=== PATIENT | male | born 1955 | race African-American/Black ===

== ENCOUNTER 2016-06-26 13:12 | Inpatient (IN) | payer OTHER ==
[2016-06-26 16:07] VITALS: BMI 27.6
--- NOTE | 2016-06-26 16:47 | HP ---
CIWA Score - CIWA Score Nausea/Vomitin-Mild Nausea/No Vomiting Muscle Tremors: 4-Moderate,w/Arms Extend Anxiety: 4-Mod. Anxious/Guarded Agitation: 4-Moderately Restless Paroxysmal Sweats: 3 Orientation: 0-Oriented Tacttile Disturbances: 0-None Auditory Disturbances: 0-None Visual Disturbances: 0-None Headache: 1-Very Mild CIWA-Ar Total Score: 17 Admission ROS BHS - HPI Chief Complaint: Withdrawal sx. Allergies/Adverse Reactions: Allergies Allergy/AdvReac Type Severity Reaction Status Date / Time Penicillins Allergy Severe Difficulty Verified 06/26/16 15:34 Breathing tomato [Tomato] Allergy Mild Itching Verified 06/26/16 15:34 tuberculin, purified protein Allergy Rash Verified 06/26/16 15:34 deriva [Tuberculin,Purif.Prot.Deriv.] History of Present Illness: 61 y/o man with a long hx. of alcoholism is admitted for detox. Pt. has been in previous detox,denies significant sobriety. Exam Limitations: No Limitations - Ebola screening Have you traveled outside of the country in the last 21 days: No Have you had contact with anyone from an Ebola affected area: No Have you been sick,other than usual withdrawal symptoms: No Do you have a fever: No - Review of Systems Constitutional: Diaphoresis EENT: reports: No Symptoms Reported Respiratory: reports: No Symptoms reported Cardiac: reports: No Symptoms Reported GI: reports: Nausea, Abdominal cramping : reports: No Symptoms Reported Musculoskeletal: reports: Joint Pain Integumentary: reports: Sweating Neuro: reports: Tremors Endocrine: reports: No Symptoms Reported Hematology: reports: No Symptoms Reported Psychiatric: reports: No Sypmtoms Reported Other Systems: Reviewed and Negative Patient History - Patient Medical History Hx Anemia: No Hx Asthma: No Hx Chronic Obstructive Pulmonary Disease (COPD): No Hx Cancer: No Hx Cardiac Disorders: No Hx Congestive Heart Failure: No Hx Hypertension: No (when detoxing) Hx Hypercholesterolemia: No Hx Pacemaker: No HX Cerebrovascular Accident: No Hx Seizures: No Hx Dementia: No Hx Diabetes: No Hx Gastrointestinal Disorders: Yes (acid reflux) Hx Liver Disease: No Hx Genitourinary Disorders: No Hx Sexually Transmitted Disorders: No Hx Renal Disease (ESRD): No Hx Thyroid Disease: No Hx Human Immunodeficiency Virus (HIV): No Hx Hepatitis C: No Hx Depression: No Hx Suicide Attempt: No Hx Bipolar Disorder: No Hx Schizophrenia: No - Patient Surgical History Past Surgical History: No Hx Neurologic Surgery: No Hx Cataract Extraction: No Hx Cardiac Surgery: No Hx Lung Surgery: No Hx Breast Surgery: No Hx Breast Biopsy: No Hx Abdominal Surgery: No Hx Appendectomy: No Hx Cholecystectomy: No Hx Genitourinary Surgery: No Hx Section: No Hx Orthopedic Surgery: No Anesthesia Reaction: No - PPD History Previous Implant?: Yes Documented Results: Positive w/o proof Date: 12/16/14 (recent Cx-ray is WNL) Results: Allergic to PPD PPD to be Administered?: No - Smoking Cessation Smoking history: Current some day smoker Have you smoked in the past 12 months: Yes Aproximately how many cigarettes per day: 6 Cigars Per Day: 0 Hx Chewing Tobacco Use: No Initiated information on smoking cessation: Yes 'Breaking Loose' booklet given: 06/26/16 - Substance & Tx. History Hx Alcohol Use: Yes Hx Substance Use: No Substance Use Type: Alcohol Hx Substance Use Treatment: Yes (detox) - Substances Abused Alcohol-vodka/beer Route: Oral Frequency: Daily Amount used: 2 1/2 pts./3 (22 oz.) Age of first use: 19 Date of Last Use: 06/26/16 Family Disease History - Family Disease History Family Disease History: CA: Mother (BREAST) Admission Physical Exam S - Vital Signs Vital Signs: Vital Signs - 24 hr 06/26/16 15:54 Temperature 96 F L Pulse Rate 103 H Respiratory 18 Rate Blood Pressure 153/86 - Physical General Appearance: Yes: Alcohol on Breath, Tremorous, Irritable, Sweating, Anxious HEENTM: Yes: Within Normal Limits Respiratory: Yes: Chest Non-Tender, Lungs Clear, Normal Breath Sounds Neck: Yes: Supple Breast: Yes: Breast Exam Deferred Cardiology: Yes: Regular Rhythm, Regular Rate, S1, S2 Abdominal: Yes: Normal Bowel Sounds, Non Tender, Soft Genitourinary: Yes: Within Normal Limits Back: Yes: Within Normal Limits Musculoskeletal: Yes: Within Normal Limits Extremities: Yes: Tremors 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: Yes: Fully Oriented, Alert Integumentary: Yes: Diaphoresis Lymphatic: Yes: Within Normal Limits - Diagnostic (1) GERD (gastroesophageal reflux disease) Current Visit: Yes Status: Acute Qualifiers: Esophagitis presence: without esophagitis Qualified Code(s): K21.9 - Gastro-esophageal reflux disease without esophagitis (2) Alcohol dependence with uncomplicated withdrawal Current Visit: Yes Status: Acute (3) Dry eyes Current Visit: Yes Status: Chronic Comment: with sensitivity to light (4) Nicotine dependence Current Visit: Yes Status: Chronic Cleared for Admission [facility] - Detox or Rehab [facility] Level of Care: Medically Managed Detox Regimen/Protocol: Librium S Breath Alcohol Content Breath Alcohol Content: 0.247 Urine Drug Screen - Results Drug Screen Negative: Yes
[2016-06-26] MEDS ORDERED: chlordiazePOXIDE HCL 25 MG CAPSULE PO ONE (16:54)
[2016-06-26] MEDS ORDERED: MAGNESIUM CITRATE 300 ML BOTTLE PO PRN (16:54)
[2016-06-26] MEDS ORDERED: MAG HYDROX/AL HYDROX/SIMETH 30 ML UNIT-DOSE CUP PO PRN (16:54)
[2016-06-26] MEDS ORDERED: LOPERAMIDE HCL 2 MG CAPSULE PO PRN (16:54)
[2016-06-26] MEDS ORDERED: MENTHOL/PHENOL 1 EACH UD MM PRN (16:54)
[2016-06-26] MEDS ORDERED: MAGNESIUM HYDROX 2400MG/30ML ORAL SUSPENSION 30 ML CUP PO PRN (16:54)
[2016-06-26] MEDS ORDERED: P-EPHED 60MG/TRIPROLIDI 2.5MG TABLET PO PRN (16:54)
[2016-06-26] MEDS ORDERED: ACETAMINOPHEN 325 MG TABLET (FP) PO PRN (16:54)
[2016-06-26] MEDS ORDERED: chlordiazePOXIDE HCL 25 MG CAPSULE PO PRN (16:54)
[2016-06-26] MEDS ORDERED: diphenhydrAMINE HCL 50 MG CAPSULE PO PRN (16:54)
[2016-06-26] MEDS ORDERED: NICOTINE POLACRILEX 2 MG GUM BC PRN (16:54)
[2016-06-26] MEDS ORDERED: guaiFENesin/D-METHORPHAN HB 10 ML UNIT-DOSE CUPS PO PRN (16:54)
[2016-06-26] MEDS: chlordiazePOXIDE HCL 25 MG CAPSULE PO SCH ×2 (17:48→22:45)
[2016-06-26] MEDS: NICOTINE 14 MG/24 HOURS TOPICAL PATCH TD SCH (17:50)
[2016-06-26 19:27] LABS: URINE APPEARANCE CLEAR; URINE BILIRUBIN NEGATIVE (NEGATIVE); URINE BLOOD NEGATIVE (NEGATIVE); URINE COLOR LTYELLOW; URINE GLUCOSE (UA) NEGATIVE (NEGATIVE); URINE KETONE NEGATIVE (NEGATIVE); URINE LEUK ESTERASE NEGATIVE (NEGATIVE); URINE NITRITE NEGATIVE (NEGATIVE); URINE PROTEIN NEGATIVE (NEGATIVE); URINE UROBILINOGEN NEGATIVE E.U./dl (0.2-1.0)
[2016-06-26] MEDS: NAPROXEN 500 MG TABLET (FP) PO SCH (22:44)
[2016-06-26] MEDS: THIAMINE HCL 100 MG TABLET (FP) PO SCH (22:44)
[2016-06-26] MEDS: ARTIFICIAL TEARS (POLYVINYL ALCOHOL 1.4%) OPTH DROPS OU SCH (22:44)
[2016-06-26] MEDS: FLUTICASONE PROP 0.05% 16 GM NASAL SPRAY NS SCH (22:44)
[2016-06-27] MEDS: chlordiazePOXIDE HCL 25 MG CAPSULE PO SCH ×4 (05:41→22:22)
[2016-06-27] MEDS: ARTIFICIAL TEARS (POLYVINYL ALCOHOL 1.4%) OPTH DROPS OU SCH ×3 (05:51→22:22)
[2016-06-27] MEDS: RANITIDINE HCL 150 MG TABLET (FP) PO SCH ×2 (07:13→17:19)
[2016-06-27] MEDS ORDERED: ONDANSETRON *ODT* 4 MG TABLET SL PRN (09:33)
[2016-06-27] MEDS ORDERED: ONDANSETRON *ODT* 4 MG TABLET SL ONE (09:45)
[2016-06-27 10:08] LABS: MCH 31.5 pg (25.7-33.7); MCHC 34.6 g/dl (32.0-35.9); MEAN CELL VOLUME 90.9 fl (80-96); MEAN PLT VOLUME 8.3 fl (7.5-11.1); PLATELET COUNT 230 K/MM3 (134-434); RDW 16.2 % (11.9-15.9); WHITE BLOOD COUNT 8.3 K/mm3 (4.0-10.0)
[2016-06-27] MEDS: FLUTICASONE PROP 0.05% 16 GM NASAL SPRAY NS SCH ×2 (10:21→22:22)
[2016-06-27] MEDS: PRENATAL VITAMINS W/ FOLIC ACID TABLET (FP) PO SCH (10:22)
[2016-06-27] MEDS: NICOTINE 14 MG/24 HOURS TOPICAL PATCH TD SCH (10:22)
[2016-06-27] MEDS: NAPROXEN 500 MG TABLET (FP) PO SCH ×2 (10:22→22:22)
[2016-06-27 11:28] LABS: ALBUMIN 3.8 g/dl (3.4-5.0); ALK PHOS 117 U/L (45-117); ANION GAP 10 (8-16); BILIRUBIN,TOTAL 0.6 mg/dL (0.2-1.0); CALCIUM 8.4 mg/dL (8.5-10.1); CO2 24 mmol/L (21-32); CREATININE 1.1 mg/dL (0.7-1.3); GLUCOSE,RANDOM 82 mg/dL (74-106); SGOT/AST 59 U/L (15-37); SGPT/ALT 75 U/L (12-78)
--- NOTE | 2016-06-27 12:16 | PN ---
S CIWA - CIWA Score Nausea/Vomitin (also c/o diarrhea) Muscle Tremors: 4-Moderate,w/Arms Extend Anxiety: 4-Mod. Anxious/Guarded Agitation: 4-Moderately Restless Paroxysmal Sweats: 3 Orientation: 0-Oriented Tacttile Disturbances: 0-None Auditory Disturbances: 0-None Visual Disturbances: 0-None Headache: 0-None Present CIWA-Ar Total Score: 18 BHS Progress Note (SOAP) Subjective: nausea,diarrhea,sweating,anxiety,tremors,interrupted sleep,restless Objective: 06/27/16 12:15 Vital Signs - 8 hr 06/27/16 06/27/16 06:11 09:53 Temperature 97 F L 96.4 F L Pulse Rate 102 H 111 H Respiratory 18 81 H Rate Blood Pressure 156/93 156/86 Laboratory Tests 06/26/16 06/27/16 06/27/16 19:08 07:00 07:00 WBC 8.3 RBC 3.73 L Hgb 11.7 Hct 33.9 L MCV 90.9 MCHC 34.6 RDW 16.2 H D Plt Count 230 MPV 8.3 Sodium 141 Potassium 4.2 Chloride 107 Carbon Dioxide 24 Anion Gap 10 BUN 24 H D Creatinine 1.1 Creat Clearance w eGFR > 60 Random Glucose 82 Calcium 8.4 L Total Bilirubin 0.6 D AST 59 H D ALT 75 D Alkaline Phosphatase 117 D Total Protein 7.0 Albumin 3.8 Urine Color Ltyellow Urine Appearance Clear Urine pH 5.0 Ur Specific [place] 1.017 Urine Protein Negative Urine Glucose (UA) Negative Urine Ketones Negative Urine Blood Negative Urine Nitrite Negative Urine Bilirubin Negative Urine Urobilinogen Negative Ur Leukocyte Esterase Negative RPR Titer 06/27/16 07:00 WBC RBC Hgb Hct MCV MCHC RDW Plt Count MPV Sodium Potassium Chloride Carbon Dioxide Anion Gap BUN Creatinine Creat Clearance w eGFR Random Glucose Calcium Total Bilirubin AST ALT Alkaline Phosphatase Total Protein Albumin Urine Color Urine Appearance Urine pH Ur Specific [place] Urine Protein Urine Glucose (UA) Urine Ketones Urine Blood Urine Nitrite Urine Bilirubin Urine Urobilinogen Ur Leukocyte Esterase RPR Titer Nonreactive labs noted Assessment: 06/27/16 12:16 Withdrawal sx. Plan: Continue detox
[2016-06-27] MEDS: amLODIPine BESYLATE 5 MG TABLET (FP) PO SCH ×2 (13:07→22:22)
[2016-06-27] MEDS: THIAMINE HCL 100 MG TABLET (FP) PO SCH (22:23)
[2016-06-28] MEDS: chlordiazePOXIDE HCL 25 MG CAPSULE PO SCH ×2 (05:22→10:15)
[2016-06-28] MEDS: ARTIFICIAL TEARS (POLYVINYL ALCOHOL 1.4%) OPTH DROPS OU SCH ×3 (05:23→22:20)
[2016-06-28] MEDS: RANITIDINE HCL 150 MG TABLET (FP) PO SCH ×2 (06:30→17:12)
[2016-06-28] MEDS: FLUTICASONE PROP 0.05% 16 GM NASAL SPRAY NS SCH ×2 (10:14→22:18)
[2016-06-28] MEDS: NAPROXEN 500 MG TABLET (FP) PO SCH ×2 (10:14→22:19)
[2016-06-28] MEDS: amLODIPine BESYLATE 5 MG TABLET (FP) PO SCH ×2 (10:14→22:19)
[2016-06-28] MEDS: PRENATAL VITAMINS W/ FOLIC ACID TABLET (FP) PO SCH (10:15)
[2016-06-28] MEDS: NICOTINE 14 MG/24 HOURS TOPICAL PATCH TD SCH (10:15)
--- NOTE | 2016-06-28 10:31 | PN ---
[facility] CIWA - CIWA Score Nausea/Vomitin-No Nausea/No Vomiting Muscle Tremors: 4-Moderate,w/Arms Extend Anxiety: 4-Mod. Anxious/Guarded Agitation: 4-Moderately Restless Paroxysmal Sweats: 1-Minimal Palms Moist Orientation: 0-Oriented Tacttile Disturbances: 3-Moderate Itch/Numb/Burn Auditory Disturbances: 0-None Visual Disturbances: 0-None Headache: 0-None Present CIWA-Ar Total Score: 16 BHS Progress Note (SOAP) Subjective: ANXIETY,SWEATS,DECREASED DIARRHEA. Objective: 06/28/16 10:29 Vital Signs 06/28/16 06/28/16 06/28/16 03:29 06:13 09:55 Temperature 96.3 F L 96.1 F L Pulse Rate 84 95 H Respiratory 18 18 20 Rate Blood Pressure 134/82 155/82 Laboratory Last Values WBC 8.3 K/mm3 (4.0-10.0) 06/27/16 07:00 RBC 3.73 M/mm3 (4.00-5.60) L 06/27/16 07:00 Hgb 11.7 GM/dL (11.7-16.9) 06/27/16 07:00 Hct 33.9 % (35.4-49) L 06/27/16 07:00 MCV 90.9 fl (80-96) 06/27/16 07:00 MCHC 34.6 g/dl (32.0-35.9) 06/27/16 07:00 RDW 16.2 % (11.9-15.9) H D 06/27/16 07:00 Plt Count 230 K/MM3 (134-434) 06/27/16 07:00 MPV 8.3 fl (7.5-11.1) 06/27/16 07:00 Sodium 141 mmol/L (136-145) 06/27/16 07:00 Potassium 4.2 mmol/L (3.5-5.1) 06/27/16 07:00 Chloride 107 mmol/L (98-107) 06/27/16 07:00 Carbon Dioxide 24 mmol/L (21-32) 06/27/16 07:00 Anion Gap 10 (8-16) 06/27/16 07:00 BUN 24 mg/dL (7-18) H D 06/27/16 07:00 Creatinine 1.1 mg/dL (0.7-1.3) 06/27/16 07:00 Creat Clearance w eGFR > 60 (>60) 06/27/16 07:00 Random Glucose 82 mg/dL (74-106) 06/27/16 07:00 Calcium 8.4 mg/dL (8.5-10.1) L 06/27/16 07:00 Total Bilirubin 0.6 mg/dL (0.2-1.0) D 06/27/16 07:00 AST 59 U/L (15-37) H D 06/27/16 07:00 ALT 75 U/L (12-78) D 06/27/16 07:00 Alkaline Phosphatase 117 U/L (45-117) D 06/27/16 07:00 Total Protein 7.0 g/dl (6.4-8.2) 06/27/16 07:00 Albumin 3.8 g/dl (3.4-5.0) 06/27/16 07:00 Urine Color Ltyellow 06/26/16 19:08 Urine Appearance Clear 06/26/16 19:08 Urine pH 5.0 (5.0-8.0) 06/26/16 19:08 Ur Specific [place] 1.017 (1.001-1.035) 06/26/16 19:08 Urine Protein Negative (NEGATIVE) 06/26/16 19:08 Urine Glucose (UA) Negative (NEGATIVE) 06/26/16 19:08 Urine Ketones Negative (NEGATIVE) 06/26/16 19:08 Urine Blood Negative (NEGATIVE) 06/26/16 19:08 Urine Nitrite Negative (NEGATIVE) 06/26/16 19:08 Urine Bilirubin Negative (NEGATIVE) 06/26/16 19:08 Urine Urobilinogen Negative E.U./dl (0.2-1.0) 06/26/16 19:08 Ur Leukocyte Esterase Negative (NEGATIVE) 06/26/16 19:08 RPR Titer Nonreactive (NONREACTIVE) 06/27/16 07:00 Hepatitis C Antibody <0.1 s/co ratio (0.0-0.9) 06/26/16 07:00 Assessment: 06/28/16 10:30 WITHDRAWAL SX Plan: CONTINUE DETOX
--- NOTE | 2016-06-28 15:35 | EKG ---
Test Reason : Blood Pressure : / mmHG Vent. Rate : 105 BPM Atrial Rate : 105 BPM P-R Int : 166 ms QRS Dur : 084 ms QT Int : 334 ms P-R-T Axes : 056 018 045 degrees QTc Int : 441 ms SINUS TACHYCARDIA OTHERWISE NORMAL ECG NO PREVIOUS ECGS AVAILABLE Confirmed by MEGAN RICO MD ([id number]) on 06/28/2016 3:35:22 PM Referred By: Confirmed By:MEGAN RICO MD
[2016-06-28] MEDS: chlordiazePOXIDE 5 MG CAPSULE PO SCH ×2 (17:12→22:19)
[2016-06-28] MEDS: THIAMINE HCL 100 MG TABLET (FP) PO SCH (22:18)
[2016-06-29] MEDS: chlordiazePOXIDE 5 MG CAPSULE PO SCH ×2 (05:45→10:29)
[2016-06-29] MEDS: ARTIFICIAL TEARS (POLYVINYL ALCOHOL 1.4%) OPTH DROPS OU SCH ×3 (05:46→22:19)
[2016-06-29] MEDS: RANITIDINE HCL 150 MG TABLET (FP) PO SCH ×2 (07:47→17:16)
[2016-06-29] MEDS: FLUTICASONE PROP 0.05% 16 GM NASAL SPRAY NS SCH ×2 (10:28→22:19)
[2016-06-29] MEDS: amLODIPine BESYLATE 5 MG TABLET (FP) PO SCH ×2 (10:29→22:20)
[2016-06-29] MEDS: PRENATAL VITAMINS W/ FOLIC ACID TABLET (FP) PO SCH (10:29)
[2016-06-29] MEDS: NICOTINE 14 MG/24 HOURS TOPICAL PATCH TD SCH (10:29)
[2016-06-29] MEDS: NAPROXEN 500 MG TABLET (FP) PO SCH ×2 (10:29→22:20)
--- NOTE | 2016-06-29 11:42 | PN ---
S Progress Note (SOAP) Subjective: ANXIETY,DECREASED TREMORS, SWEATS. Objective: 06/29/16 11:41 Vital Signs Temperature 96.3 F L 06/29/16 09:41 Pulse Rate 90 06/29/16 09:41 Respiratory Rate 20 06/29/16 09:41 Blood Pressure 130/81 06/29/16 09:41 O2 Sat by Pulse Oximetry (%) Laboratory Last Values WBC 8.3 K/mm3 (4.0-10.0) 06/27/16 07:00 RBC 3.73 M/mm3 (4.00-5.60) L 06/27/16 07:00 Hgb 11.7 GM/dL (11.7-16.9) 06/27/16 07:00 Hct 33.9 % (35.4-49) L 06/27/16 07:00 MCV 90.9 fl (80-96) 06/27/16 07:00 MCHC 34.6 g/dl (32.0-35.9) 06/27/16 07:00 RDW 16.2 % (11.9-15.9) H D 06/27/16 07:00 Plt Count 230 K/MM3 (134-434) 06/27/16 07:00 MPV 8.3 fl (7.5-11.1) 06/27/16 07:00 Sodium 141 mmol/L (136-145) 06/27/16 07:00 Potassium 4.2 mmol/L (3.5-5.1) 06/27/16 07:00 Chloride 107 mmol/L (98-107) 06/27/16 07:00 Carbon Dioxide 24 mmol/L (21-32) 06/27/16 07:00 Anion Gap 10 (8-16) 06/27/16 07:00 BUN 24 mg/dL (7-18) H D 06/27/16 07:00 Creatinine 1.1 mg/dL (0.7-1.3) 06/27/16 07:00 Creat Clearance w eGFR > 60 (>60) 06/27/16 07:00 Random Glucose 82 mg/dL (74-106) 06/27/16 07:00 Calcium 8.4 mg/dL (8.5-10.1) L 06/27/16 07:00 Total Bilirubin 0.6 mg/dL (0.2-1.0) D 06/27/16 07:00 AST 59 U/L (15-37) H D 06/27/16 07:00 ALT 75 U/L (12-78) D 06/27/16 07:00 Alkaline Phosphatase 117 U/L (45-117) D 06/27/16 07:00 Total Protein 7.0 g/dl (6.4-8.2) 06/27/16 07:00 Albumin 3.8 g/dl (3.4-5.0) 06/27/16 07:00 Urine Color Ltyellow 06/26/16 19:08 Urine Appearance Clear 06/26/16 19:08 Urine pH 5.0 (5.0-8.0) 06/26/16 19:08 Ur Specific [place] 1.017 (1.001-1.035) 06/26/16 19:08 Urine Protein Negative (NEGATIVE) 06/26/16 19:08 Urine Glucose (UA) Negative (NEGATIVE) 06/26/16 19:08 Urine Ketones Negative (NEGATIVE) 06/26/16 19:08 Urine Blood Negative (NEGATIVE) 06/26/16 19:08 Urine Nitrite Negative (NEGATIVE) 06/26/16 19:08 Urine Bilirubin Negative (NEGATIVE) 06/26/16 19:08 Urine Urobilinogen Negative E.U./dl (0.2-1.0) 06/26/16 19:08 Ur Leukocyte Esterase Negative (NEGATIVE) 06/26/16 19:08 RPR Titer Nonreactive (NONREACTIVE) 06/27/16 07:00 Hepatitis C Antibody <0.1 s/co ratio (0.0-0.9) 06/26/16 07:00 Assessment: 06/29/16 11:41 WITHDRAWAL SX Plan: CONTINUE DETOX
[2016-06-29] MEDS: DOCUSATE SODIUM 100 MG CAPSULE (FP) PO SCH (11:47)
[2016-06-29] MEDS: CARBAMIDE PEROXIDE 6.5% OTIC 15 ML BOTTLE AU SCH ×2 (12:08→22:19)
[2016-06-29] MEDS: chlordiazePOXIDE HCL 10 MG CAPSULE PO SCH ×2 (17:16→22:20)
[2016-06-29] MEDS: THIAMINE HCL 100 MG TABLET (FP) PO SCH (22:19)
[2016-06-30] MEDS: chlordiazePOXIDE HCL 10 MG CAPSULE PO SCH ×2 (05:49→10:23)
[2016-06-30] MEDS: ARTIFICIAL TEARS (POLYVINYL ALCOHOL 1.4%) OPTH DROPS OU SCH ×2 (05:50→05:51)
[2016-06-30] MEDS: RANITIDINE HCL 150 MG TABLET (FP) PO SCH (07:30)
[2016-06-30 09:17] VITALS: BP 134/82; PULSE 98; TEMP 97
--- NOTE | 2016-06-30 09:45 | DS ---
[facility] Detox Discharge Summary Admission Date: 06/26/16 Discharge Date: 06/30/16 - History Present History: Alcohol Dependence Additional Comments: DETOX COMPLETED.ALERT O X 3. NAD. Pertinent Past History: GERD - Physical Exam Results Vital Signs: Vital Signs Temperature 97.0 F L 06/30/16 09:16 Pulse Rate 98 H 06/30/16 09:16 Respiratory Rate 20 06/30/16 09:16 Blood Pressure 134/82 06/30/16 09:16 O2 Sat by Pulse Oximetry (%) Pertinent Admission Physical Exam Findings: WITHDRAWAL SX - Treatment Hospital Course: Detox Protocol Followed, Detoxed Safely, Responded well, Discharged Condition Good - Medication Discharge Medications: Ambulatory Orders Sodium Chloride [Saline Nasal [place]] 2 sprays NS Q6H PRN 04/28/15 Hypromellose 0.5% Opth Soln [Artificial Tears] 1 drop OU TID #1 drops 09/22/15 Fluticasone Prop 0.05% Nasal [Flonase -] 1 spray NS BID #1 spray 10/13/15 Hydrocortisone 2.5% Topical Cr [Anusol-Hc -] 1 applic RC BID #1 tube 10/13/15 Ranitidine [Zantac -] 150 mg PO BID@0730,1630 #60 tablet 10/13/15 Naproxen [Naprosyn -] 500 mg PO BID 06/26/16 - Diagnosis (1) Alcohol dependence with uncomplicated withdrawal Current Visit: Yes Status: Acute (2) GERD (gastroesophageal reflux disease) Current Visit: Yes Status: Chronic Qualifiers: Esophagitis presence: without esophagitis Qualified Code(s): K21.9 - Gastro-esophageal reflux disease without esophagitis (3) Nicotine dependence Current Visit: Yes Status: Chronic (4) Hip arthritis Current Visit: Yes Status: Chronic (5) Dry eyes Current Visit: Yes Status: Chronic (6) Cerumen debris on tympanic membrane of both ears Current Visit: Yes Status: Acute (7) Hemorrhoids Current Visit: Yes Status: Chronic Qualifiers: Hemorrhoid type: unspecified Qualified Code(s): K64.9 - Unspecified hemorrhoids - AMA Did Patient Leave Against Medical Advice: No
[2016-06-30] MEDS: DOCUSATE SODIUM 100 MG CAPSULE (FP) PO SCH (10:22)
[2016-06-30] MEDS: PRENATAL VITAMINS W/ FOLIC ACID TABLET (FP) PO SCH (10:22)
[2016-06-30] MEDS: amLODIPine BESYLATE 5 MG TABLET (FP) PO SCH (10:22)
[2016-06-30] MEDS: CARBAMIDE PEROXIDE 6.5% OTIC 15 ML BOTTLE AU SCH (10:22)
[2016-06-30] MEDS: NAPROXEN 500 MG TABLET (FP) PO SCH (10:22)
[2016-06-30] MEDS: FLUTICASONE PROP 0.05% 16 GM NASAL SPRAY NS SCH (10:22)
[2016-06-30] MEDS: NICOTINE 14 MG/24 HOURS TOPICAL PATCH TD SCH (10:23)
== END 2016-06-30 12:43 | disposition home or self-care (01) | DRG 775 ==
LOC: YASAS 13:12 → Y3N 17:00
PROVIDERS: ADMIT Internal Medicine; ATTEND Internal Medicine
PROC: HZ2ZZZZ Detoxification Services for Substance Abuse Treatment (ICD-10-PCS; principal; 2016-06-30)
DX: F10.230 Alcohol dependence with withdrawal, uncomplicated (principal); F17.210 Nicotine dependence, cigarettes, uncomplicated; K21.9 Gastro-esophageal reflux disease without esophagitis; M13.859 Other specified arthritis, unspecified hip; H04.123 Dry eye syndrome of bilateral lacrimal glands; K64.9 Unspecified hemorrhoids; H61.23 Impacted cerumen, bilateral
CPT/HCPCS: 36415; 80053; 81003; 85027; 86593; 93005; 93010

== ENCOUNTER 2017-01-07 17:45 | Inpatient (IN) | payer OTHER ==
--- NOTE | 2017-01-07 18:53 | HP ---
CIWA Score - CIWA Score Nausea/Vomitin-Mild Nausea/No Vomiting Muscle Tremors: 2 Anxiety: 1-Mildly Anxious Agitation: 2 Paroxysmal Sweats: 1-Minimal Palms Moist Orientation: 1-Uncertain about Date Tacttile Disturbances: 1-Very Mild Itch/Numbness Auditory Disturbances: 0-None Visual Disturbances: 3-Moderate Sensitivity Headache: 1-Very Mild CIWA-Ar Total Score: 13 Admission ROS BHS - HPI Chief Complaint: I need detox and then rehab Allergies/Adverse Reactions: Allergies Allergy/AdvReac Type Severity Reaction Status Date / Time Penicillins Allergy Severe Difficulty Verified 06/26/16 15:34 Breathing tomato [Tomato] Allergy Mild Itching Verified 06/26/16 15:34 tuberculin, purified protein Allergy Rash Verified 06/26/16 15:34 deriva [Tuberculin,Purif.Prot.Deriv.] History of Present Illness: 61 y/o male with alcohol dependence with recent detox at [facility] presents for detox and possible rehab. Exam Limitations: Intoxication - Ebola screening Have you traveled outside of the country in the last 21 days: No Have you had contact with anyone from an Ebola affected area: No Have you been sick,other than usual withdrawal symptoms: No Do you have a fever: No - Review of Systems Constitutional: Loss of Appetite EENT: reports: No Symptoms Reported, Blurred Vision, Tearing Respiratory: reports: Cough Cardiac: reports: No Symptoms Reported GI: reports: Poor Fluid Intake : reports: No Symptoms Reported Musculoskeletal: reports: Back Pain, Muscle Pain Integumentary: reports: No Symptoms Reported Neuro: reports: Headache, Weakness Endocrine: reports: No Symptoms Reported Hematology: reports: No Symptoms Reported Psychiatric: reports: Anxious Other Systems: Reviewed and Negative Patient History - Patient Medical History Hx Anemia: No Hx Asthma: No Hx Chronic Obstructive Pulmonary Disease (COPD): No Hx Cancer: No Hx Cardiac Disorders: No Hx Congestive Heart Failure: No Hx Hypertension: No Hx Hypercholesterolemia: No Hx Pacemaker: No HX Cerebrovascular Accident: No Hx Seizures: No Hx Dementia: No Hx Diabetes: No Hx Gastrointestinal Disorders: Yes (acid reflux) Hx Liver Disease: No Hx Genitourinary Disorders: No Hx Sexually Transmitted Disorders: No Hx Renal Disease (ESRD): No Hx Thyroid Disease: No Hx Human Immunodeficiency Virus (HIV): No Hx Hepatitis C: No Hx Depression: No Hx Suicide Attempt: No Hx Bipolar Disorder: No Hx Schizophrenia: No - Patient Surgical History Past Surgical History: No - PPD History Date: 12/16/14 Results: Allergic to PPD - Smoking Cessation Smoking history: Current some day smoker Have you smoked in the past 12 months: Yes Aproximately how many cigarettes per day: 6 Cigars Per Day: 0 Hx Chewing Tobacco Use: No Initiated information on smoking cessation: Yes 'Breaking Loose' booklet given: 01/07/17 - Substance & Tx. History Hx Alcohol Use: Yes Hx Substance Use: Yes Substance Use Type: Alcohol - Substances Abused Alcohol Route: Oral Frequency: Daily Amount used: 2 pint, 2 packs Age of first use: 19 Date of Last Use: 01/07/17 Family Disease History - Family Disease History Family Disease History: CA: Mother (BREAST) Admission Physical Exam [facility] - Physical General Appearance: Yes: Alcohol on Breath HEENTM: Yes: Hearing grossly Normal, Normocephalic, Normal Voice, GLEN, Photophobia Respiratory: Yes: Chest Non-Tender, Lungs Clear, No Respiratory Distress, No Accessory Muscle Use Neck: Yes: No masses,lesions,Nodules, Supple Breast: Yes: Breast Exam Deferred Cardiology: Yes: Regular Rhythm, Regular Rate, S1, S2 Abdominal: Yes: Normal Bowel Sounds, Non Tender, Soft Genitourinary: Yes: Within Normal Limits Back: Yes: Normal Inspection Musculoskeletal: Yes: full range of Motion Extremities: Yes: Normal Capillary Refill, Normal Inspection, Non-Tender 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: 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: 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 intact, Fully Oriented, Normal Mood/Affect Integumentary: Yes: Within Normal Limits Lymphatic: Yes: Within Normal Limits - Diagnostic (1) Alcohol dependence with uncomplicated withdrawal Current Visit: Yes Status: Acute (2) GERD (gastroesophageal reflux disease) Current Visit: Yes Status: Chronic Qualifiers: Esophagitis presence: without esophagitis Qualified Code(s): K21.9 - Gastro-esophageal reflux disease without esophagitis (3) Nicotine dependence Current Visit: Yes Status: Acute Cleared for Admission [facility] - Detox or Rehab [facility] Level of Care: Medically Managed Detox Regimen/Protocol: Librium [facility] Breath Alcohol Content Breath Alcohol Content: 0.247
[2017-01-07] MEDS ORDERED: P-EPHED 60MG/TRIPROLIDI 2.5MG TABLET PO PRN (18:56)
[2017-01-07] MEDS ORDERED: MAGNESIUM HYDROX 2400MG/30ML ORAL SUSPENSION 30 ML CUP PO PRN (18:56)
[2017-01-07] MEDS ORDERED: chlordiazePOXIDE HCL 25 MG CAPSULE PO ONE (18:56)
[2017-01-07] MEDS ORDERED: LOPERAMIDE HCL 2 MG CAPSULE PO PRN (18:56)
[2017-01-07] MEDS ORDERED: MAGNESIUM CITRATE 300 ML BOTTLE PO PRN (18:56)
[2017-01-07] MEDS ORDERED: IBUPROFEN 400 MG TABLET (FP) PO PRN (18:56)
[2017-01-07] MEDS ORDERED: guaiFENesin/D-METHORPHAN HB 10 ML UNIT-DOSE CUPS PO PRN (18:56)
[2017-01-07] MEDS ORDERED: MAG HYDROX/AL HYDROX/SIMETH 30 ML UNIT-DOSE CUP PO PRN (18:56)
[2017-01-07] MEDS ORDERED: MENTHOL/PHENOL 1 EACH UD MM PRN (18:56)
[2017-01-07] MEDS ORDERED: NICOTINE POLACRILEX 2 MG GUM BC PRN (18:56)
[2017-01-07] MEDS ORDERED: diphenhydrAMINE HCL 50 MG CAPSULE PO PRN (18:56)
[2017-01-07] MEDS ORDERED: chlordiazePOXIDE HCL 25 MG CAPSULE PO PRN (18:56)
[2017-01-07] MEDS ORDERED: hydrOXYzine PAMOATE 50 MG CAPSULE (FP) PO PRN (18:56)
[2017-01-08 00:26] LABS: URINE APPEARANCE CLEAR; URINE BILIRUBIN NEGATIVE (NEGATIVE); URINE BLOOD 1+ (NEGATIVE); URINE COLOR LTYELLOW; URINE GLUCOSE (UA) NEGATIVE (NEGATIVE); URINE KETONE NEGATIVE (NEGATIVE); URINE LEUK ESTERASE NEGATIVE (NEGATIVE); URINE NITRITE NEGATIVE (NEGATIVE); URINE PROTEIN NEGATIVE (NEGATIVE); URINE UROBILINOGEN NEGATIVE mg/dL (0.2-1.0)
[2017-01-08 00:40] LABS: URINE MUCUS RARE; URINE RBC 2 /hpf (0-3); URINE WBC <1 /hpf (3-5)
[2017-01-08] MEDS: THIAMINE HCL 100 MG TABLET (FP) PO SCH ×2 (00:58→22:37)
[2017-01-08] MEDS: chlordiazePOXIDE HCL 25 MG CAPSULE PO SCH ×5 (00:59→22:37)
[2017-01-08 09:50] LABS: MCHC 33.2 g/dl (32.0-35.9); MEAN CELL VOLUME 87.4 fl (80-96); MEAN PLT VOLUME 8.6 fl (7.5-11.1); PLATELET COUNT 227 K/MM3 (134-434); RDW 17.2 % (11.9-15.9); WHITE BLOOD COUNT 9.4 K/mm3 (4.0-10.0)
--- NOTE | 2017-01-08 09:53 | EKG ---
Test Reason : Blood Pressure : / mmHG Vent. Rate : 092 BPM Atrial Rate : 092 BPM P-R Int : 170 ms QRS Dur : 080 ms QT Int : 364 ms P-R-T Axes : 046 003 047 degrees QTc Int : 450 ms NORMAL SINUS RHYTHM NORMAL ECG WHEN COMPARED WITH ECG OF 26-JUN-2016 17:56, NO SIGNIFICANT CHANGE WAS FOUND Confirmed by MD LIDA, QUOC ([id number]) on 01/08/2017 9:52:38 AM Referred By: Kumar Hardy Confirmed By:QUOC HILTON MD
[2017-01-08 10:01] LABS: SGOT/AST 41 U/L (15-37); SGPT/ALT 37 U/L (12-78)
[2017-01-08 10:07] LABS: ALBUMIN 3.8 g/dl (3.4-5.0); ALK PHOS 86 U/L (45-117); ANION GAP 12 (8-16); BILIRUBIN,TOTAL 0.5 mg/dL (0.2-1.0); CALCIUM 9.1 mg/dL (8.5-10.1); CO2 22 mmol/L (21-32); CREATININE 1.1 mg/dL (0.7-1.3); GLUCOSE,RANDOM 75 mg/dL (74-106)
[2017-01-08] MEDS: PRENATAL VITAMINS W/ FOLIC ACID TABLET (FP) PO SCH (10:13)
[2017-01-08] MEDS: guaiFENesin/D-METHORPHAN HB 10 ML UNIT-DOSE CUPS PO PRN (13:15)
[2017-01-08] MEDS: LORATADINE 10 MG TABLET PO SCH (13:15)
[2017-01-08] MEDS: HYDROCORTISONE 1% TOPICAL CREAM 30 GM TUBE TP SCH ×2 (15:43→22:37)
[2017-01-08] MEDS: ARTIFICIAL TEARS (POLYVINYL ALCOHOL 1.4%) OPTH DROPS OU SCH ×2 (15:46→22:37)
--- NOTE | 2017-01-08 17:45 | PN ---
[facility] CIWA - CIWA Score Nausea/Vomitin-Int. Nausea w/Dry Heave Muscle Tremors: 4-Moderate,w/Arms Extend Anxiety: 4-Mod. Anxious/Guarded Agitation: 4-Moderately Restless Paroxysmal Sweats: 3 Orientation: 0-Oriented Tacttile Disturbances: 1-Very Mild Itch/Numbness Auditory Disturbances: 0-None Visual Disturbances: 0-None Headache: 0-None Present CIWA-Ar Total Score: 20 S Progress Note (SOAP) Subjective: N/D, stuffy nose, right leg pain, stomach ache; c/o having common cold and requesting cough syrup. C/O itchy rash on face. Objective: 01/08/17 17:42 Last Vital Signs Temp Pulse Resp BP Pulse Ox 97.2 F L 100 H 20 157/90 01/08/17 13:26 01/08/17 13:26 01/08/17 13:26 01/08/17 13:26 PE: Face: macular mildly erythemic scaly rash Laboratory Tests 01/07/17 01/08/17 01/08/17 21:18 07:50 07:50 WBC 9.4 RBC 4.48 D Hgb 13.0 D Hct 39.2 D MCV 87.4 MCH 29.0 MCHC 33.2 RDW 17.2 H Plt Count 227 MPV 8.6 Sodium 143 Potassium 4.0 Chloride 109 H Carbon Dioxide 22 Anion Gap 12 BUN 18 D Creatinine 1.1 Creat Clearance w eGFR > 60 Random Glucose 75 Calcium 9.1 Total Bilirubin 0.5 AST 41 H D ALT 37 D Alkaline Phosphatase 86 D Total Protein 7.0 Albumin 3.8 Urine Color Ltyellow Urine Appearance Clear Urine pH 5.0 Ur Specific [place] 1.020 Urine Protein Negative Urine Glucose (UA) Negative Urine Ketones Negative Urine Blood 1+ H Urine Nitrite Negative Urine Bilirubin Negative Urine Urobilinogen Negative Ur Leukocyte Esterase Negative Urine RBC 2 Urine WBC <1 Urine Mucus Rare RPR Titer 01/08/17 07:50 WBC RBC Hgb Hct MCV MCH MCHC RDW Plt Count MPV Sodium Potassium Chloride Carbon Dioxide Anion Gap BUN Creatinine Creat Clearance w eGFR Random Glucose Calcium Total Bilirubin AST ALT Alkaline Phosphatase Total Protein Albumin Urine Color Urine Appearance Urine pH Ur Specific [place] Urine Protein Urine Glucose (UA) Urine Ketones Urine Blood Urine Nitrite Urine Bilirubin Urine Urobilinogen Ur Leukocyte Esterase Urine RBC Urine WBC Urine Mucus RPR Titer Nonreactive Labs noted: UA 1+ blood Assessment: 01/08/17 17:44 Withdrawal symptoms Noted with microscopic hematuria Plan: Continue detox, ordered for artificial tears at patient's request for dry eyes; claritin 10mg daily for congestion; naproxen 500mg PO bid (patient request for right leg pain stating he takes naproxen at home; will d/c motrin) Microscopic hematuria: encouraged to drink lots of water, repeat UA Facial dermatitis, nos: hydrocortisone cream 1% bid to affected area x 10 days
[2017-01-08] MEDS: NAPROXEN 500 MG TABLET (FP) PO SCH (22:36)
[2017-01-09] MEDS: ACETAMINOPHEN 325 MG TABLET (FP) PO PRN ×3 (04:05→17:02)
[2017-01-09] MEDS: chlordiazePOXIDE HCL 25 MG CAPSULE PO SCH ×3 (05:52→17:01)
--- NOTE | 2017-01-09 10:07 | PN ---
[facility] CIWA - CIWA Score Nausea/Vomitin Muscle Tremors: 4-Moderate,w/Arms Extend Anxiety: 4-Mod. Anxious/Guarded Agitation: 4-Moderately Restless Paroxysmal Sweats: 3 Orientation: 0-Oriented Tacttile Disturbances: 1-Very Mild Itch/Numbness Auditory Disturbances: 0-None Visual Disturbances: 0-None Headache: 1-Very Mild CIWA-Ar Total Score: 20 BHS Progress Note (SOAP) Subjective: nausea, sweats, interrupted sleep, anxiety, tremors Objective: 01/09/17 10:06 Vital Signs 01/09/17 01/09/17 01/09/17 03:42 06:33 07:58 Temperature 98 F Pulse Rate 80 80 Respiratory 18 16 Rate Blood Pressure 170/85 183/99 01/09/17 09:23 Temperature 97.0 F L Pulse Rate 78 Respiratory 18 Rate Blood Pressure 150/94 Laboratory Tests 01/07/17 01/08/17 01/08/17 21:18 07:50 07:50 WBC 9.4 RBC 4.48 D Hgb 13.0 D Hct 39.2 D MCV 87.4 MCH 29.0 MCHC 33.2 RDW 17.2 H Plt Count 227 MPV 8.6 Sodium 143 Potassium 4.0 Chloride 109 H Carbon Dioxide 22 Anion Gap 12 BUN 18 D Creatinine 1.1 Creat Clearance w eGFR > 60 Random Glucose 75 Calcium 9.1 Total Bilirubin 0.5 AST 41 H D ALT 37 D Alkaline Phosphatase 86 D Total Protein 7.0 Albumin 3.8 Urine Color Ltyellow Urine Appearance Clear Urine pH 5.0 Ur Specific [place] 1.020 Urine Protein Negative Urine Glucose (UA) Negative Urine Ketones Negative Urine Blood 1+ H Urine Nitrite Negative Urine Bilirubin Negative Urine Urobilinogen Negative Ur Leukocyte Esterase Negative Urine RBC 2 Urine WBC <1 Urine Mucus Rare RPR Titer 01/08/17 07:50 WBC RBC Hgb Hct MCV MCH MCHC RDW Plt Count MPV Sodium Potassium Chloride Carbon Dioxide Anion Gap BUN Creatinine Creat Clearance w eGFR Random Glucose Calcium Total Bilirubin AST ALT Alkaline Phosphatase Total Protein Albumin Urine Color Urine Appearance Urine pH Ur Specific [place] Urine Protein Urine Glucose (UA) Urine Ketones Urine Blood Urine Nitrite Urine Bilirubin Urine Urobilinogen Ur Leukocyte Esterase Urine RBC Urine WBC Urine Mucus RPR Titer Nonreactive Assessment: 01/09/17 10:07 withdrawal sx Plan: cont detox
[2017-01-09] MEDS: ARTIFICIAL TEARS (POLYVINYL ALCOHOL 1.4%) OPTH DROPS OU SCH ×2 (10:37→22:30)
[2017-01-09] MEDS: PRENATAL VITAMINS W/ FOLIC ACID TABLET (FP) PO SCH (10:37)
[2017-01-09] MEDS: LORATADINE 10 MG TABLET PO SCH (10:37)
[2017-01-09] MEDS: NAPROXEN 500 MG TABLET (FP) PO SCH ×2 (10:37→22:58)
[2017-01-09] MEDS: HYDROCORTISONE 1% TOPICAL CREAM 30 GM TUBE TP SCH ×2 (10:38→22:58)
[2017-01-09] MEDS: PANTOPRAZOLE 40 MG TABLET (FP) PO SCH (12:41)
[2017-01-09 13:59] LABS: URINE APPEARANCE CLEAR; URINE BILIRUBIN NEGATIVE (NEGATIVE); URINE BLOOD NEGATIVE (NEGATIVE); URINE COLOR LTYELLOW; URINE GLUCOSE (UA) NEGATIVE (NEGATIVE); URINE KETONE NEGATIVE (NEGATIVE); URINE LEUK ESTERASE NEGATIVE (NEGATIVE); URINE NITRITE NEGATIVE (NEGATIVE); URINE PROTEIN NEGATIVE (NEGATIVE); URINE UROBILINOGEN NEGATIVE mg/dL (0.2-1.0)
[2017-01-09] MEDS: THIAMINE HCL 100 MG TABLET (FP) PO SCH (22:57)
[2017-01-09] MEDS: guaiFENesin/D-METHORPHAN HB 10 ML UNIT-DOSE CUPS PO PRN (22:57)
[2017-01-09] MEDS: chlordiazePOXIDE 5 MG CAPSULE PO SCH (22:58)
[2017-01-10] MEDS: ACETAMINOPHEN 325 MG TABLET (FP) PO PRN (05:56)
[2017-01-10] MEDS: chlordiazePOXIDE 5 MG CAPSULE PO SCH ×3 (05:57→17:10)
[2017-01-10] MEDS: ARTIFICIAL TEARS (POLYVINYL ALCOHOL 1.4%) OPTH DROPS OU SCH ×2 (10:33→22:23)
[2017-01-10] MEDS: HYDROCORTISONE 1% TOPICAL CREAM 30 GM TUBE TP SCH ×2 (10:34→22:26)
[2017-01-10] MEDS: LORATADINE 10 MG TABLET PO SCH (10:34)
[2017-01-10] MEDS: NAPROXEN 500 MG TABLET (FP) PO SCH ×2 (10:34→22:23)
[2017-01-10] MEDS: PANTOPRAZOLE 40 MG TABLET (FP) PO SCH (10:34)
[2017-01-10] MEDS: PRENATAL VITAMINS W/ FOLIC ACID TABLET (FP) PO SCH (10:35)
--- NOTE | 2017-01-10 12:25 | PN ---
BHS Progress Note (SOAP) Subjective: Sweating, Tremors, H/A, Anxious, Stomach Cramping, Nausea. Objective: PT. A & O X 3. NO ACUTE DISTRESS. PT. DENIES CHEST PAIN. 01/10/17 12:21 Vital Signs Temperature 97.2 F L 01/10/17 09:25 Pulse Rate 80 01/10/17 09:25 Respiratory Rate 18 01/10/17 09:25 Blood Pressure 146/76 01/10/17 09:25 O2 Sat by Pulse Oximetry (%) Laboratory Tests 01/07/17 01/08/17 01/08/17 21:18 07:50 07:50 WBC 9.4 RBC 4.48 D Hgb 13.0 D Hct 39.2 D MCV 87.4 MCH 29.0 MCHC 33.2 RDW 17.2 H Plt Count 227 MPV 8.6 Sodium 143 Potassium 4.0 Chloride 109 H Carbon Dioxide 22 Anion Gap 12 BUN 18 D Creatinine 1.1 Creat Clearance w eGFR > 60 Random Glucose 75 Calcium 9.1 Total Bilirubin 0.5 AST 41 H D ALT 37 D Alkaline Phosphatase 86 D Total Protein 7.0 Albumin 3.8 Urine Color Ltyellow Urine Appearance Clear Urine pH 5.0 Ur Specific [place] 1.020 Urine Protein Negative Urine Glucose (UA) Negative Urine Ketones Negative Urine Blood 1+ H Urine Nitrite Negative Urine Bilirubin Negative Urine Urobilinogen Negative Ur Leukocyte Esterase Negative Urine RBC 2 Urine WBC <1 Urine Mucus Rare RPR Titer 01/08/17 01/09/17 07:50 10:05 WBC RBC Hgb Hct MCV MCH MCHC RDW Plt Count MPV Sodium Potassium Chloride Carbon Dioxide Anion Gap BUN Creatinine Creat Clearance w eGFR Random Glucose Calcium Total Bilirubin AST ALT Alkaline Phosphatase Total Protein Albumin Urine Color Ltyellow Urine Appearance Clear Urine pH 6.0 Ur Specific [place] 1.020 Urine Protein Negative Urine Glucose (UA) Negative Urine Ketones Negative Urine Blood Negative Urine Nitrite Negative Urine Bilirubin Negative Urine Urobilinogen Negative Ur Leukocyte Esterase Negative Urine RBC Urine WBC Urine Mucus RPR Titer Nonreactive LABS NOTED. RESULTS OF REPEAT UA NOTED. 01/10/17 12:23 Assessment: 01/10/17 12:22 WITHDRAWAL SYMPTOMS. Plan: CONTINUE DETOX. CONTINUE TO MONITOR BP.
--- NOTE | 2017-01-10 12:38 | PN ---
[facility] Progress Note Note: Patient brought a copy of CXR Report from [facility] ([place], [place] done on 12/26/2016, with him at time of this Detox admission. CXR report NEGATIVE for Acute Pulmonary Pathology. Thus, CXR previously ordered on current Detox admission (for Allergy to PPD solution) D/Cwatson Cordero NP
[2017-01-10] MEDS: SODIUM CHLORIDE NASAL SPRAY 44 ML BOTTLE NS PRN (22:23)
[2017-01-10] MEDS: chlordiazePOXIDE HCL 10 MG CAPSULE PO SCH (22:23)
[2017-01-10] MEDS: THIAMINE HCL 100 MG TABLET (FP) PO SCH (22:23)
[2017-01-10] MEDS: guaiFENesin/D-METHORPHAN HB 10 ML UNIT-DOSE CUPS PO PRN (22:26)
[2017-01-11] MEDS: chlordiazePOXIDE HCL 10 MG CAPSULE PO SCH ×2 (05:53→10:23)
[2017-01-11] MEDS: ACETAMINOPHEN 325 MG TABLET (FP) PO PRN (05:54)
[2017-01-11 09:47] VITALS: BP 160/96; PULSE 92; TEMP 97.2
[2017-01-11] MEDS: NAPROXEN 500 MG TABLET (FP) PO SCH (10:21)
[2017-01-11] MEDS: PANTOPRAZOLE 40 MG TABLET (FP) PO SCH (10:21)
[2017-01-11] MEDS: PRENATAL VITAMINS W/ FOLIC ACID TABLET (FP) PO SCH (10:21)
[2017-01-11] MEDS: LORATADINE 10 MG TABLET PO SCH (10:21)
[2017-01-11] MEDS: ARTIFICIAL TEARS (POLYVINYL ALCOHOL 1.4%) OPTH DROPS OU SCH (10:22)
[2017-01-11] MEDS: SODIUM CHLORIDE NASAL SPRAY 44 ML BOTTLE NS PRN (10:22)
[2017-01-11] MEDS: HYDROCORTISONE 1% TOPICAL CREAM 30 GM TUBE TP SCH (10:22)
--- NOTE | 2017-01-11 20:32 | DS ---
[facility] Detox Discharge Summary Admission Date: 01/07/17 Discharge Date: 01/11/17 - History Present History: Alcohol Dependence Additional Comments: PATIENT GOING TO [facility] ([place] FOR AFTERCARE. PATIENT ALSO ADVISED TO FOLLOW-UP WITH HIS RULING TECHNICIAN, DR. ENRIQUEZ ([facility] [place] FOR GENERAL MEDICAL ASSESSMENT AFTER DISCHARGE FROM DETOX. PATIENT WAS DISCHARGED FROM DETOX UNIT IN STABLE MEDICAL CONDITION. Pertinent Past History: GERD. - Physical Exam Results Vital Signs: Vital Signs Temperature 97.2 F L 01/11/17 09:46 Pulse Rate 92 H 01/11/17 09:46 Respiratory Rate 18 01/11/17 09:46 Blood Pressure 160/96 01/11/17 09:46 O2 Sat by Pulse Oximetry (%) Pertinent Admission Physical Exam Findings: WITHDRAWAL SYMPTOMS. Laboratory Tests 01/07/17 01/08/17 01/08/17 21:18 07:50 07:50 WBC 9.4 RBC 4.48 D Hgb 13.0 D Hct 39.2 D MCV 87.4 MCH 29.0 MCHC 33.2 RDW 17.2 H Plt Count 227 MPV 8.6 Sodium 143 Potassium 4.0 Chloride 109 H Carbon Dioxide 22 Anion Gap 12 BUN 18 D Creatinine 1.1 Creat Clearance w eGFR > 60 Random Glucose 75 Calcium 9.1 Total Bilirubin 0.5 AST 41 H D ALT 37 D Alkaline Phosphatase 86 D Total Protein 7.0 Albumin 3.8 Urine Color Ltyellow Urine Appearance Clear Urine pH 5.0 Ur Specific [place] 1.020 Urine Protein Negative Urine Glucose (UA) Negative Urine Ketones Negative Urine Blood 1+ H Urine Nitrite Negative Urine Bilirubin Negative Urine Urobilinogen Negative Ur Leukocyte Esterase Negative Urine RBC 2 Urine WBC <1 Urine Mucus Rare RPR Titer 01/08/17 01/09/17 07:50 10:05 WBC RBC Hgb Hct MCV MCH MCHC RDW Plt Count MPV Sodium Potassium Chloride Carbon Dioxide Anion Gap BUN Creatinine Creat Clearance w eGFR Random Glucose Calcium Total Bilirubin AST ALT Alkaline Phosphatase Total Protein Albumin Urine Color Ltyellow Urine Appearance Clear Urine pH 6.0 Ur Specific [place] 1.020 Urine Protein Negative Urine Glucose (UA) Negative Urine Ketones Negative Urine Blood Negative Urine Nitrite Negative Urine Bilirubin Negative Urine Urobilinogen Negative Ur Leukocyte Esterase Negative Urine RBC Urine WBC Urine Mucus RPR Titer Nonreactive LABS NOTED. - Treatment Hospital Course: Detox Protocol Followed, Detoxed Safely, Responded well, Discharged Condition Good Patient has Accepted a Rehab Referral to: PT. GOING TO [facility] ([place] FOR AFTERCARE - Medication Discharge Medications: Ambulatory Orders Sodium Chloride [Saline Nasal Mullin] 2 sprays NS Q6H PRN 04/28/15 Hypromellose 0.5% Opth Soln [Artificial Tears] 1 drop OU TID #1 drops 09/22/15 Hydrocortisone 2.5% Topical Cr [Anusol-Hc -] 1 applic RC BID #1 tube 10/13/15 Ranitidine [Zantac -] 150 mg PO BID@0730,1630 #60 tablet 10/13/15 Fluticasone Prop 0.05% Nasal [Flonase -] 1 spray NS BID #1 spray 01/11/17 Naproxen [Naprosyn -] 500 mg PO BID PRN #30 mg 01/11/17 - Diagnosis (1) Alcohol dependence with uncomplicated withdrawal Status: Acute (2) Nicotine dependence Status: Chronic (3) GERD (gastroesophageal reflux disease) Status: Chronic Qualifiers: Esophagitis presence: without esophagitis Qualified Code(s): K21.9 - Gastro-esophageal reflux disease without esophagitis - AMA Did Patient Leave Against Medical Advice: No
== END 2017-01-11 12:48 | disposition home or self-care (01) | DRG 775 ==
LOC: YASAS 17:45 → Y3N 18:29
PROVIDERS: ADMIT Internal Medicine Addiction Medicine; ATTEND Internal Medicine Addiction Medicine
PROC: HZ2ZZZZ Detoxification Services for Substance Abuse Treatment (ICD-10-PCS; principal; 2017-01-07)
DX: F10.230 Alcohol dependence with withdrawal, uncomplicated (principal); F17.210 Nicotine dependence, cigarettes, uncomplicated; K21.9 Gastro-esophageal reflux disease without esophagitis
CPT/HCPCS: 36415; 80053; 81003; 81015; 85027; 86593; 93005; 93010

== ENCOUNTER 2017-04-28 17:00 | Inpatient (IN) | payer OTHER ==
[2017-04-28 22:12] VITALS: BMI 29.4
--- NOTE | 2017-04-28 22:37 | HP ---
CIWA Score - CIWA Score Nausea/Vomitin Muscle Tremors: 4-Moderate,w/Arms Extend Anxiety: 4-Mod. Anxious/Guarded Agitation: 5 Paroxysmal Sweats: 1-Minimal Palms Moist Orientation: 1-Uncertain about Date Tacttile Disturbances: 3-Moderate Itch/Numb/Burn Auditory Disturbances: 0-None Visual Disturbances: 3-Moderate Sensitivity Headache: 3-Moderate CIWA-Ar Total Score: 27 Admission ROS BHS - HPI Chief Complaint: C/O WITHDRAWAL SX'S. SEEKING DETOX TXMENT Allergies/Adverse Reactions: Allergies Allergy/AdvReac Type Severity Reaction Status Date / Time Penicillins Allergy Severe Difficulty Verified 06/26/16 15:34 Breathing tomato [Tomato] Allergy Mild Itching Verified 06/26/16 15:34 tuberculin, purified protein Allergy Rash Verified 06/26/16 15:34 deriva [Tuberculin,Purif.Prot.Deriv.] History of Present Illness: 61 Y.O. MALE WITH HX/O ALCOHOLISM ADMITTED FOR DETOX. CLIENT IS KNOWN TO THIS DETOX. LAST HERE 2016. HE IS SELF REFERRED. STATES LONGEST CLEAN TIME 9 MONTHS RELAPSING IN 2014. DENIES LEGALS Exam Limitations: No Limitations - Ebola screening Have you traveled outside of the country in the last 21 days: No Have you had contact with anyone from an Ebola affected area: No Do you have a fever: No - Review of Systems Constitutional: Chills, Loss of Appetite, Malaise, Night Sweats, Changes in sleep EENT: reports: No Symptoms Reported Respiratory: reports: No Symptoms reported Cardiac: reports: No Symptoms Reported GI: reports: Nausea, Poor Appetite, Poor Fluid Intake, Vomiting : reports: Other (HESITANCY) Musculoskeletal: reports: Joint Pain Integumentary: reports: No Symptoms Reported Neuro: reports: No Symptoms reported Endocrine: reports: No Symptoms Reported Hematology: reports: No Symptoms Reported Psychiatric: reports: Anxious Other Systems: Reviewed and Negative Patient History - Patient Medical History Hx Anemia: No Hx Asthma: No Hx Chronic Obstructive Pulmonary Disease (COPD): No Hx Cancer: No Hx Cardiac Disorders: No Hx Congestive Heart Failure: No Hx Hypertension: No Hx Hypercholesterolemia: No Hx Pacemaker: No HX Cerebrovascular Accident: No Hx Seizures: No Hx Dementia: No Hx Diabetes: No Hx Gastrointestinal Disorders: Yes (acid reflux) Hx Liver Disease: No Hx Genitourinary Disorders: No Hx Sexually Transmitted Disorders: No Hx Renal Disease (ESRD): No Hx Thyroid Disease: No Hx Human Immunodeficiency Virus (HIV): No Hx Hepatitis C: No Hx Depression: No Hx Suicide Attempt: No Hx Bipolar Disorder: No Hx Schizophrenia: No Other Medical History: ANXIETY - Patient Surgical History Past Surgical History: No Hx Neurologic Surgery: No Hx Cataract Extraction: No Hx Cardiac Surgery: No Hx Lung Surgery: No Hx Breast Surgery: No Hx Breast Biopsy: No Hx Abdominal Surgery: No Hx Appendectomy: No Hx Cholecystectomy: No Hx Genitourinary Surgery: No Hx Section: No Hx Orthopedic Surgery: No Anesthesia Reaction: No - PPD History Previous Implant?: Yes Implanted On Prior [facility] Admission?: No Date: 12/16/14 Results: Allergic to PPD PPD to be Administered?: No - Smoking Cessation Smoking history: Current every day smoker Have you smoked in the past 12 months: Yes Aproximately how many cigarettes per day: 6 Cigars Per Day: 0 Hx Chewing Tobacco Use: No Initiated information on smoking cessation: Yes 'Breaking Loose' booklet given: 04/28/17 - Substance & Tx. History Hx Alcohol Use: Yes Hx Substance Use: Yes Substance Use Type: Alcohol Hx Substance Use Treatment: [facility] - Substances Abused VODKA Route: Oral Frequency: Daily Amount used: 1 QUARTAND 1 PINT Age of first use: 19 Date of Last Use: 04/27/17 Family Disease History - Family Disease History Family Disease History: CA: Mother (BREAST) Admission Physical Exam BHS - Vital Signs Vital Signs: Vital Signs - 24 hr 04/28/17 22:11 Temperature 98.1 F Pulse Rate 110 H Respiratory 20 Rate Blood Pressure 150/82 - Physical General Appearance: Yes: Appropriately Dressed, Mild Distress, Alcohol on Breath , Intoxicated, Tremorous, Anxious HEENTM: Yes: EOMI, Normocephalic, Normal Voice, GLEN, Pharynx Normal Respiratory: Yes: Chest Non-Tender, Lungs Clear, Normal Breath Sounds, No Respiratory Distress, No Accessory Muscle Use Neck: Yes: No masses,lesions,Nodules, Supple, Trachea in good position Breast: Yes: Breast Exam Deferred Cardiology: Yes: Regular Rhythm, S1, S2, Tachycardia Abdominal: Yes: Non Tender, Soft, Hernia Genitourinary: Yes: Within Normal Limits Back: Yes: Normal Inspection Musculoskeletal: Yes: full range of Motion, Gait Steady Extremities: Yes: Normal Capillary Refill, Normal Range of Motion, Non-Tender, Tremors 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: Yes: public relations manager II-XII NML intact, Alert, Motor Strength 5/5 Integumentary: Yes: Normal Color, Warm, Moist Lymphatic: Yes: Within Normal Limits - Diagnostic (1) Alcohol dependence with uncomplicated withdrawal Current Visit: No Status: Chronic (2) Dry eyes Current Visit: No Status: Chronic Comment: with sensitivity to light (3) GERD (gastroesophageal reflux disease) Current Visit: No Status: Chronic Qualifiers: Esophagitis presence: without esophagitis Qualified Code(s): K21.9 - Gastro -esophageal reflux disease without esophagitis (4) Nicotine dependence Current Visit: No Status: Chronic Cleared for Admission [facility] - Detox or Rehab [facility] Level of Care: Medically Managed Detox Regimen/Protocol: Librium [facility] Breath Alcohol Content Breath Alcohol Content: 0.071 Urine Drug Screen - Results Drug Screen Negative: Yes
[2017-04-28] MEDS ORDERED: MAGNESIUM CITRATE 300 ML BOTTLE PO PRN (22:47)
[2017-04-28] MEDS ORDERED: ACETAMINOPHEN 325 MG TABLET (FP) PO PRN (22:47)
[2017-04-28] MEDS ORDERED: MAGNESIUM HYDROX 2400MG/30ML ORAL SUSPENSION 30 ML CUP PO PRN (22:47)
[2017-04-28] MEDS ORDERED: chlordiazePOXIDE HCL 25 MG CAPSULE PO PRN (22:47)
[2017-04-28] MEDS ORDERED: guaiFENesin/D-METHORPHAN HB 10 ML UNIT-DOSE CUPS PO PRN (22:47)
[2017-04-28] MEDS ORDERED: P-EPHED 60MG/TRIPROLIDI 2.5MG TABLET PO PRN (22:47)
[2017-04-28] MEDS ORDERED: IBUPROFEN 400 MG TABLET (FP) PO PRN (22:47)
[2017-04-28] MEDS ORDERED: hydrOXYzine PAMOATE 50 MG CAPSULE (FP) PO PRN (22:47)
[2017-04-28] MEDS ORDERED: NICOTINE POLACRILEX 2 MG GUM BC PRN (22:47)
[2017-04-28] MEDS ORDERED: MAG HYDROX/AL HYDROX/SIMETH 30 ML UNIT-DOSE CUP PO PRN (22:47)
[2017-04-28] MEDS ORDERED: LOPERAMIDE HCL 2 MG CAPSULE PO PRN (22:47)
[2017-04-28] MEDS: chlordiazePOXIDE HCL 25 MG CAPSULE PO SCH (23:29)
[2017-04-29] MEDS: chlordiazePOXIDE HCL 25 MG CAPSULE PO SCH ×4 (05:10→22:03)
[2017-04-29 05:19] LABS: URINE APPEARANCE SLCLOUDY; URINE BILIRUBIN NEGATIVE (NEGATIVE); URINE BLOOD NEGATIVE (NEGATIVE); URINE COLOR YELLOW; URINE GLUCOSE (UA) NEGATIVE (NEGATIVE); URINE KETONE NEGATIVE (NEGATIVE); URINE LEUK ESTERASE NEGATIVE (NEGATIVE); URINE NITRITE NEGATIVE (NEGATIVE); URINE PROTEIN NEGATIVE (NEGATIVE); URINE UROBILINOGEN NEGATIVE mg/dL (0.2-1.0)
[2017-04-29] MEDS: RANITIDINE HCL 150 MG TABLET (FP) PO SCH ×2 (08:49→17:20)
[2017-04-29 10:12] LABS: HEMATOCRIT 41.8 % (35.4-49); HEMOGLOBIN 13.8 GM/dL (11.7-16.9); MCH 30.3 pg (25.7-33.7); MEAN CELL VOLUME 91.8 fl (80-96); MEAN PLT VOLUME 8.5 fl (7.5-11.1); PLATELET COUNT 280 K/MM3 (134-434); RBC 4.55 M/mm3 (4.00-5.60); RDW 15.1 % (11.9-15.9)
[2017-04-29] MEDS: PRENATAL VITAMINS W/ FOLIC ACID TABLET (FP) PO SCH (10:15)
[2017-04-29 10:16] LABS: CHLORIDE 103 mmol/L (98-107); POTASSIUM 4.2 mmol/L (3.5-5.1); SODIUM 135 mmol/L (136-145)
[2017-04-29] MEDS: NAPROXEN 500 MG TABLET (FP) PO PRN ×2 (10:16→22:04)
[2017-04-29] MEDS: NICOTINE 14 MG/24 HOURS TOPICAL PATCH TD SCH (10:18)
[2017-04-29 10:24] LABS: ALBUMIN 4.1 g/dl (3.4-5.0); ALK PHOS 74 U/L (45-117); ANION GAP 11 (8-16); BILIRUBIN,TOTAL 0.6 mg/dL (0.2-1.0); BLOOD UREA NITROGEN 26 mg/dL (7-18); CALCIUM 8.6 mg/dL (8.5-10.1); CO2 21 mmol/L (21-32); CREATININE 1.3 mg/dL (0.7-1.3); GLUCOSE,RANDOM 111 mg/dL (74-106); SGOT/AST 43 U/L (15-37); SGPT/ALT 47 U/L (12-78); TOT PROT 7.7 g/dl (6.4-8.2)
[2017-04-29] MEDS ORDERED: WITCH HAZEL 50% (TUCKS) 40 PAD/JAR PAD TP PRN (11:11)
--- NOTE | 2017-04-29 11:25 | EKG ---
Test Reason : Blood Pressure : / mmHG Vent. Rate : 111 BPM Atrial Rate : 111 BPM P-R Int : 162 ms QRS Dur : 072 ms QT Int : 332 ms P-R-T Axes : 055 015 030 degrees QTc Int : 451 ms SINUS TACHYCARDIA POSSIBLE LEFT ATRIAL ENLARGEMENT BORDERLINE ECG WHEN COMPARED WITH ECG OF 07-JAN-2017 21:56, NO SIGNIFICANT CHANGE WAS FOUND BASELINE ARTIFACT Confirmed by KWAKU AGUILAR MD ([id number]) on 04/29/2017 11:25:36 AM Referred By: Confirmed By:KWAKU AGUILAR MD
--- NOTE | 2017-04-29 12:21 | CONSULT ---
[facility] Psychiatric Consult - Data Date of interview: 04/29/17 Admission source: [facility] Identifying data: Readmission to [facility] for this 61 y/o AA male seeking detox treatment on for alcohol dependence.Patient is single,a father of two,homeless,unemployed and reportedly denied of financial assistance. Substance Abuse History: Confirmed by patient in this session.Mr Salvador admits to daily use of vodka and occasional usage of cannabis + cocaine.Refer to current [facility] report for details : Smoking history: Current every day smoker. Have you smoked in the past 12 months: Yes. Aproximately how many cigarettes per day: 6. Cigars Per Day: 0. Hx Chewing Tobacco Use: No. Initiated information on smoking cessation: Yes. 'Breaking Loose' booklet given: . - Substance & Tx. History. Hx Alcohol Use: Yes. Hx Substance Use: Yes. Substance Use Type: Alcohol. Hx Substance Use Treatment: Yes ([facility]). - Substances Abused. VODKA. Route: Oral. Frequency: Daily. Amount used: 1 QUARTAND 1 PINT. Age of first use: 19. Date of Last Use: 04/27/17 Medical History: Gerd and chronic photophobia (patient wears dark eyeglasses at all times). Psychiatric History: Patient denies. Physical/Sexual Abuse/Trauma History: Patent denies. Additional Comment: Drug Screen is negative. Mental Status Exam - Mental Status Exam Alert and Oriented to: Time, Place, Person Cognitive Function: Good Patient Appearance: Well Groomed (wears dark eyeglasses) Mood: Hopeful, Euthymic Affect: Appropriate, Normal Range Patient Behavior: Fatigued, Appropriate, Cooperative Speech Pattern: Clear, Appropriate Voice Loudness: Normal Thought Process: Intact, Goal Oriented Thought Disorder: Not Present Hallucinations: Denies Suicidal Ideation: Denies Homicidal Ideation: Denies Insight/Judgement: Poor Sleep: Poorly, Difficulty falling asleep Appetite: Good Muscle strength/Tone: Normal Gait/Station: Normal Psychiatric Findings - Problem List ([place] 1, 2,3) (1) Alcohol dependence with uncomplicated withdrawal Current Visit: Yes Status: Acute (2) Nicotine dependence Current Visit: Yes Status: Acute (3) Insomnia Current Visit: Yes Status: Acute - Initial Treatment Plan Initial Treatment Plan: Previous records are reviewed.Psychoeducatioin and support are provided in this session.Detoxification in progress.Patient declines hypnotic medications.He relies on librium for relief." I dont want to be on these sleep medications that make me wake up groggy and weird." Observation.
[2017-04-29] MEDS: DOCUSATE SODIUM 100 MG CAPSULE (FP) PO SCH ×2 (12:34→22:03)
--- NOTE | 2017-04-29 15:12 | PN ---
S CIWA - CIWA Score Nausea/Vomitin Muscle Tremors: 4-Moderate,w/Arms Extend Anxiety: 4-Mod. Anxious/Guarded Agitation: 3 Paroxysmal Sweats: 3 Orientation: 0-Oriented Tacttile Disturbances: 0-None Auditory Disturbances: 0-None Visual Disturbances: 2-Mild Sensitivity Headache: 0-None Present CIWA-Ar Total Score: 19 S Progress Note (SOAP) Subjective: Constipation, Tremors, Nausea, Sweating. Objective: PT. A & O X 3, OBSERVED AMBULATING ON UNIT. NO ACUTE DISTRESS. 04/29/17 15:09 Vital Signs Temperature 96.5 F L 04/29/17 13:54 Pulse Rate 107 H 04/29/17 13:54 Respiratory Rate 20 04/29/17 13:54 Blood Pressure 138/77 04/29/17 13:54 O2 Sat by Pulse Oximetry (%) Laboratory Tests 04/29/17 04/29/17 04/29/17 04:50 08:00 08:00 WBC 11.0 H RBC 4.55 Hgb 13.8 Hct 41.8 MCV 91.8 MCH 30.3 MCHC 33.0 RDW 15.1 D Plt Count 280 D MPV 8.5 Sodium 135 L Potassium 4.2 Chloride 103 Carbon Dioxide 21 Anion Gap 11 BUN 26 H D Creatinine 1.3 Creat Clearance w eGFR 56.31 Random Glucose 111 H D Calcium 8.6 Total Bilirubin 0.6 AST 43 H ALT 47 D Alkaline Phosphatase 74 Total Protein 7.7 Albumin 4.1 Urine Color Yellow Urine Appearance Slcloudy Urine pH 5.0 Ur Specific [place] 1.021 Urine Protein Negative Urine Glucose (UA) Negative Urine Ketones Negative Urine Blood Negative Urine Nitrite Negative Urine Bilirubin Negative Urine Urobilinogen Negative Ur Leukocyte Esterase Negative RPR Titer 04/29/17 08:00 WBC RBC Hgb Hct MCV MCH MCHC RDW Plt Count MPV Sodium Potassium Chloride Carbon Dioxide Anion Gap BUN Creatinine Creat Clearance w eGFR Random Glucose Calcium Total Bilirubin AST ALT Alkaline Phosphatase Total Protein Albumin Urine Color Urine Appearance Urine pH Ur Specific [place] Urine Protein Urine Glucose (UA) Urine Ketones Urine Blood Urine Nitrite Urine Bilirubin Urine Urobilinogen Ur Leukocyte Esterase RPR Titer Nonreactive LABS NOTED. Assessment: 04/29/17 15:09 WITHDRAWAL SYMPTOMS. Plan: CONTINUE DETOX. INCREASE DAILY PO FLUID INTAKE. D/C MAGNESIUM-CONTAINING MEDS. FOR ABNORMAL ADMISSION RENAL LAB VALUES. BMP ON 05/01/2017 FORE FURTHER EVALUATION OF RENAL LABS. COLACE, PO BID FOR CONSTIPATION.
[2017-04-29] MEDS: ARTIFICIAL TEARS (POLYVINYL ALCOHOL 1.4%) OPTH DROPS OU PRN (15:21)
[2017-04-29] MEDS: BENZOCAINE 28 GM HEMORRHOIDAL OINTMENT TP PRN (15:25)
[2017-04-29] MEDS: SODIUM CHLORIDE NASAL SPRAY 44 ML BOTTLE NS PRN (17:19)
[2017-04-29] MEDS: THIAMINE HCL 100 MG TABLET (FP) PO SCH (22:03)
[2017-04-30] MEDS: chlordiazePOXIDE HCL 25 MG CAPSULE PO SCH ×3 (05:24→18:10)
[2017-04-30] MEDS: RANITIDINE HCL 150 MG TABLET (FP) PO SCH ×2 (07:44→18:10)
[2017-04-30] MEDS: DOCUSATE SODIUM 100 MG CAPSULE (FP) PO SCH ×2 (10:06→22:26)
[2017-04-30] MEDS: PRENATAL VITAMINS W/ FOLIC ACID TABLET (FP) PO SCH (10:06)
[2017-04-30] MEDS: NICOTINE 14 MG/24 HOURS TOPICAL PATCH TD SCH (10:06)
[2017-04-30] MEDS: ARTIFICIAL TEARS (POLYVINYL ALCOHOL 1.4%) OPTH DROPS OU PRN (14:41)
[2017-04-30] MEDS: SODIUM CHLORIDE NASAL SPRAY 44 ML BOTTLE NS PRN (14:41)
--- NOTE | 2017-04-30 15:51 | PN ---
[facility] CIWA - CIWA Score Nausea/Vomitin Muscle Tremors: 3 Anxiety: 4-Mod. Anxious/Guarded Agitation: 4-Moderately Restless Paroxysmal Sweats: 3 Orientation: 0-Oriented Tacttile Disturbances: 1-Very Mild Itch/Numbness Auditory Disturbances: 0-None Visual Disturbances: 0-None Headache: 0-None Present CIWA-Ar Total Score: 17 BHS Progress Note (SOAP) Subjective: Anxious, sweating, diarrhea, interrupted sleep, right knee pain (requesting naun bandage) Objective: 04/30/17 15:48 Last Vital Signs Temp Pulse Resp BP Pulse Ox 97.0 F L 104 H 18 148/83 04/30/17 13:35 04/30/17 13:35 04/30/17 13:35 04/30/17 13:35 Laboratory Tests 04/29/17 04/29/17 04/29/17 04:50 08:00 08:00 WBC 11.0 H RBC 4.55 Hgb 13.8 Hct 41.8 MCV 91.8 MCH 30.3 MCHC 33.0 RDW 15.1 D Plt Count 280 D MPV 8.5 Sodium Potassium Chloride Carbon Dioxide Anion Gap BUN Creatinine Creat Clearance w eGFR Random Glucose Calcium Total Bilirubin AST ALT Alkaline Phosphatase Total Protein Albumin Urine Color Yellow Urine Appearance Slcloudy Urine pH 5.0 Ur Specific [place] 1.021 Urine Protein Negative Urine Glucose (UA) Negative Urine Ketones Negative Urine Blood Negative Urine Nitrite Negative Urine Bilirubin Negative Urine Urobilinogen Negative Ur Leukocyte Esterase Negative RPR Titer Hepatitis C Antibody 0.2 04/29/17 04/29/17 08:00 08:00 WBC RBC Hgb Hct MCV MCH MCHC RDW Plt Count MPV Sodium 135 L Potassium 4.2 Chloride 103 Carbon Dioxide 21 Anion Gap 11 BUN 26 H D Creatinine 1.3 Creat Clearance w eGFR 56.31 Random Glucose 111 H D Calcium 8.6 Total Bilirubin 0.6 AST 43 H ALT 47 D Alkaline Phosphatase 74 Total Protein 7.7 Albumin 4.1 Urine Color Urine Appearance Urine pH Ur Specific [place] Urine Protein Urine Glucose (UA) Urine Ketones Urine Blood Urine Nitrite Urine Bilirubin Urine Urobilinogen Ur Leukocyte Esterase RPR Titer Nonreactive Hepatitis C Antibody Labs noted: wbc 11.0, prerenal azotemia Assessment: 04/30/17 15:49 Withdrawal symptoms Noted with leukocytosis and prerenal azotemia Plan: Continue detox Encouraged to drink lots of water Naun wrap/bandage ordered for right knee pain due to arthritis as per patient Leukocytosis: asymptomatic for infection, repeat CBC Prerenal azotemia: encouraged to drink lots of water, repeat BMP
[2017-04-30] MEDS: BENZOCAINE 28 GM HEMORRHOIDAL OINTMENT TP PRN (18:10)
[2017-04-30] MEDS: THIAMINE HCL 100 MG TABLET (FP) PO SCH (22:25)
[2017-04-30] MEDS: chlordiazePOXIDE 5 MG CAPSULE PO SCH (22:26)
[2017-04-30] MEDS: NAPROXEN 500 MG TABLET (FP) PO PRN (22:28)
[2017-05-01] MEDS: chlordiazePOXIDE 5 MG CAPSULE PO SCH ×3 (05:34→17:28)
[2017-05-01] MEDS: RANITIDINE HCL 150 MG TABLET (FP) PO SCH ×2 (07:15→17:28)
[2017-05-01] MEDS: SODIUM CHLORIDE NASAL SPRAY 44 ML BOTTLE NS PRN (10:00)
[2017-05-01] MEDS: NAPROXEN 500 MG TABLET (FP) PO PRN ×2 (10:00→22:14)
[2017-05-01] MEDS: ARTIFICIAL TEARS (POLYVINYL ALCOHOL 1.4%) OPTH DROPS OU PRN (10:00)
[2017-05-01] MEDS: PRENATAL VITAMINS W/ FOLIC ACID TABLET (FP) PO SCH (10:00)
[2017-05-01] MEDS: DOCUSATE SODIUM 100 MG CAPSULE (FP) PO SCH ×2 (10:00→22:14)
[2017-05-01] MEDS: MENTHOL/PHENOL 1 EACH UD MM PRN (10:06)
[2017-05-01] MEDS: NICOTINE 14 MG/24 HOURS TOPICAL PATCH TD SCH (10:06)
[2017-05-01 11:59] LABS: BASO % 1.1 % (0-2.0); HEMOGLOBIN 12.7 GM/dL (11.7-16.9); LYMPH % 39.7 % (8-40); MCH 30.2 pg (25.7-33.7); MCHC 32.5 g/dl (32.0-35.9); MEAN CELL VOLUME 92.9 fl (80-96); MEAN PLT VOLUME 8.5 fl (7.5-11.1); MONO % 6.8 % (3.8-10.2); NEUT % 46.4 % (42.8-82.8); PLATELET COUNT 259 K/MM3 (134-434); WHITE BLOOD COUNT 5.9 K/mm3 (4.0-10.0)
[2017-05-01 12:17] LABS: ANION GAP 11 (8-16); CALCIUM 8.8 mg/dL (8.5-10.1); CHLORIDE 109 mmol/L (98-107); CO2 21 mmol/L (21-32); POTASSIUM 4.2 mmol/L (3.5-5.1); SODIUM 141 mmol/L (136-145)
[2017-05-01 12:19] LABS: BLOOD UREA NITROGEN 15 mg/dL (7-18); CREATININE 1.1 mg/dL (0.7-1.3); GLUCOSE,RANDOM 156 mg/dL (74-106)
--- NOTE | 2017-05-01 14:03 | PN ---
BHS Progress Note (SOAP) Subjective: C/O ITCHY RASH ON UPPER LIP. SLIGHT ANXIETY. Objective: 05/01/17 15:17 Vital Signs Temperature 96.9 F L 05/01/17 13:47 Pulse Rate 89 05/01/17 13:47 Respiratory Rate 18 05/01/17 13:47 Blood Pressure 156/89 05/01/17 13:47 O2 Sat by Pulse Oximetry (%) Laboratory Last Values WBC 5.9 K/mm3 (4.0-10.0) D 05/01/17 07:50 RBC 4.20 M/mm3 (4.00-5.60) 05/01/17 07:50 Hgb 12.7 GM/dL (11.7-16.9) 05/01/17 07:50 Hct 39.0 % (35.4-49) 05/01/17 07:50 MCV 92.9 fl (80-96) 05/01/17 07:50 MCH 30.2 pg (25.7-33.7) 05/01/17 07:50 MCHC 32.5 g/dl (32.0-35.9) 05/01/17 07:50 RDW 15.0 % (11.9-15.9) 05/01/17 07:50 Plt Count 259 K/MM3 (134-434) 05/01/17 07:50 MPV 8.5 fl (7.5-11.1) 05/01/17 07:50 Neutrophils % 46.4 % (42.8-82.8) 05/01/17 07:50 Lymphocytes % 39.7 % (8-40) 05/01/17 07:50 Monocytes % 6.8 % (3.8-10.2) 05/01/17 07:50 Eosinophils % 6.0 % (0-4.5) H 05/01/17 07:50 Basophils % 1.1 % (0-2.0) 05/01/17 07:50 Sodium 141 mmol/L (136-145) 05/01/17 07:50 Potassium 4.2 mmol/L (3.5-5.1) 05/01/17 07:50 Chloride 109 mmol/L (98-107) H 05/01/17 07:50 Carbon Dioxide 21 mmol/L (21-32) 05/01/17 07:50 Anion Gap 11 (8-16) 05/01/17 07:50 BUN 15 mg/dL (7-18) D 05/01/17 07:50 Creatinine 1.1 mg/dL (0.7-1.3) 05/01/17 07:50 Creat Clearance w eGFR 56.31 (>60) 04/29/17 08:00 Random Glucose 156 mg/dL (74-106) H D 05/01/17 07:50 Calcium 8.8 mg/dL (8.5-10.1) 05/01/17 07:50 Total Bilirubin 0.6 mg/dL (0.2-1.0) 04/29/17 08:00 AST 43 U/L (15-37) H 04/29/17 08:00 ALT 47 U/L (12-78) D 04/29/17 08:00 Alkaline Phosphatase 74 U/L (45-117) 04/29/17 08:00 Total Protein 7.7 g/dl (6.4-8.2) 04/29/17 08:00 Albumin 4.1 g/dl (3.4-5.0) 04/29/17 08:00 Urine Color Yellow 04/29/17 04:50 Urine Appearance Slcloudy 04/29/17 04:50 Urine pH 5.0 (5.0-8.0) 04/29/17 04:50 Ur Specific [place] 1.021 (1.001-1.035) 04/29/17 04:50 Urine Protein Negative (NEGATIVE) 04/29/17 04:50 Urine Glucose (UA) Negative (NEGATIVE) 04/29/17 04:50 Urine Ketones Negative (NEGATIVE) 04/29/17 04:50 Urine Blood Negative (NEGATIVE) 04/29/17 04:50 Urine Nitrite Negative (NEGATIVE) 04/29/17 04:50 Urine Bilirubin Negative (NEGATIVE) 04/29/17 04:50 Urine Urobilinogen Negative mg/dL (0.2-1.0) 04/29/17 04:50 Ur Leukocyte Esterase Negative (NEGATIVE) 04/29/17 04:50 RPR Titer Nonreactive (NONREACTIVE) 04/29/17 08:00 Hepatitis C Antibody 0.2 s/co ratio (0.0-0.9) 04/29/17 08:00 Assessment: 05/01/17 15:18 NAD Plan: CONTINUE TO MONITOR PT
[2017-05-01] MEDS: THIAMINE HCL 100 MG TABLET (FP) PO SCH (22:13)
[2017-05-01] MEDS: HYDROCORTISONE 1% TOPICAL CREAM 30 GM TUBE TP SCH (22:14)
[2017-05-01] MEDS: chlordiazePOXIDE HCL 10 MG CAPSULE PO SCH (22:16)
[2017-05-02] MEDS: chlordiazePOXIDE HCL 10 MG CAPSULE PO SCH ×3 (05:27→17:24)
[2017-05-02] MEDS: RANITIDINE HCL 150 MG TABLET (FP) PO SCH ×2 (07:01→17:24)
[2017-05-02] MEDS: ARTIFICIAL TEARS (POLYVINYL ALCOHOL 1.4%) OPTH DROPS OU PRN (10:03)
[2017-05-02] MEDS: HYDROCORTISONE 1% TOPICAL CREAM 30 GM TUBE TP SCH ×2 (10:04→22:05)
[2017-05-02] MEDS: PRENATAL VITAMINS W/ FOLIC ACID TABLET (FP) PO SCH (10:04)
[2017-05-02] MEDS: DOCUSATE SODIUM 100 MG CAPSULE (FP) PO SCH ×2 (10:04→22:04)
[2017-05-02] MEDS: SODIUM CHLORIDE NASAL SPRAY 44 ML BOTTLE NS PRN (10:04)
[2017-05-02] MEDS: NICOTINE 14 MG/24 HOURS TOPICAL PATCH TD SCH (10:04)
--- NOTE | 2017-05-02 11:32 | PN ---
BHS Progress Note (SOAP) Subjective: DECREASED ANXIETY,SWEATS. ALERT O X 3. NAD. Objective: 05/02/17 11:32 Vital Signs Temperature 97.3 F L 05/02/17 09:52 Pulse Rate 88 05/02/17 09:52 Respiratory Rate 20 05/02/17 09:52 Blood Pressure 140/88 05/02/17 09:52 O2 Sat by Pulse Oximetry (%) Laboratory Last Values WBC 5.9 K/mm3 (4.0-10.0) D 05/01/17 07:50 RBC 4.20 M/mm3 (4.00-5.60) 05/01/17 07:50 Hgb 12.7 GM/dL (11.7-16.9) 05/01/17 07:50 Hct 39.0 % (35.4-49) 05/01/17 07:50 MCV 92.9 fl (80-96) 05/01/17 07:50 MCH 30.2 pg (25.7-33.7) 05/01/17 07:50 MCHC 32.5 g/dl (32.0-35.9) 05/01/17 07:50 RDW 15.0 % (11.9-15.9) 05/01/17 07:50 Plt Count 259 K/MM3 (134-434) 05/01/17 07:50 MPV 8.5 fl (7.5-11.1) 05/01/17 07:50 Neutrophils % 46.4 % (42.8-82.8) 05/01/17 07:50 Lymphocytes % 39.7 % (8-40) 05/01/17 07:50 Monocytes % 6.8 % (3.8-10.2) 05/01/17 07:50 Eosinophils % 6.0 % (0-4.5) H 05/01/17 07:50 Basophils % 1.1 % (0-2.0) 05/01/17 07:50 Sodium 141 mmol/L (136-145) 05/01/17 07:50 Potassium 4.2 mmol/L (3.5-5.1) 05/01/17 07:50 Chloride 109 mmol/L (98-107) H 05/01/17 07:50 Carbon Dioxide 21 mmol/L (21-32) 05/01/17 07:50 Anion Gap 11 (8-16) 05/01/17 07:50 BUN 15 mg/dL (7-18) D 05/01/17 07:50 Creatinine 1.1 mg/dL (0.7-1.3) 05/01/17 07:50 Creat Clearance w eGFR 56.31 (>60) 04/29/17 08:00 Random Glucose 156 mg/dL (74-106) H D 05/01/17 07:50 Calcium 8.8 mg/dL (8.5-10.1) 05/01/17 07:50 Total Bilirubin 0.6 mg/dL (0.2-1.0) 04/29/17 08:00 AST 43 U/L (15-37) H 04/29/17 08:00 ALT 47 U/L (12-78) D 04/29/17 08:00 Alkaline Phosphatase 74 U/L (45-117) 04/29/17 08:00 Total Protein 7.7 g/dl (6.4-8.2) 04/29/17 08:00 Albumin 4.1 g/dl (3.4-5.0) 04/29/17 08:00 Urine Color Yellow 04/29/17 04:50 Urine Appearance Slcloudy 04/29/17 04:50 Urine pH 5.0 (5.0-8.0) 04/29/17 04:50 Ur Specific [place] 1.021 (1.001-1.035) 04/29/17 04:50 Urine Protein Negative (NEGATIVE) 04/29/17 04:50 Urine Glucose (UA) Negative (NEGATIVE) 04/29/17 04:50 Urine Ketones Negative (NEGATIVE) 04/29/17 04:50 Urine Blood Negative (NEGATIVE) 04/29/17 04:50 Urine Nitrite Negative (NEGATIVE) 04/29/17 04:50 Urine Bilirubin Negative (NEGATIVE) 04/29/17 04:50 Urine Urobilinogen Negative mg/dL (0.2-1.0) 04/29/17 04:50 Ur Leukocyte Esterase Negative (NEGATIVE) 04/29/17 04:50 RPR Titer Nonreactive (NONREACTIVE) 04/29/17 08:00 Hepatitis C Antibody 0.2 s/co ratio (0.0-0.9) 04/29/17 08:00 Assessment: 05/02/17 11:32 WITHDRAWAL SX Plan: CONTINUE DETOX
[2017-05-02] MEDS ORDERED: MAG HYDROX/AL HYDROX/SIMETH 30 ML UNIT-DOSE CUP PO PRN (12:23)
[2017-05-02] MEDS: THIAMINE HCL 100 MG TABLET (FP) PO SCH (22:04)
[2017-05-02] MEDS: NAPROXEN 500 MG TABLET (FP) PO PRN (22:06)
[2017-05-03] MEDS: RANITIDINE HCL 150 MG TABLET (FP) PO SCH (07:26)
[2017-05-03] MEDS: MENTHOL/PHENOL 1 EACH UD MM PRN (08:17)
[2017-05-03 09:14] VITALS: BP 153/83; PULSE 106; TEMP 96.8
[2017-05-03] MEDS: HYDROCORTISONE 1% TOPICAL CREAM 30 GM TUBE TP SCH (10:13)
[2017-05-03] MEDS: NICOTINE 14 MG/24 HOURS TOPICAL PATCH TD SCH (10:13)
[2017-05-03] MEDS: PRENATAL VITAMINS W/ FOLIC ACID TABLET (FP) PO SCH (10:13)
[2017-05-03] MEDS: DOCUSATE SODIUM 100 MG CAPSULE (FP) PO SCH (10:13)
== END 2017-05-03 11:12 | disposition home or self-care (01) | DRG 775 ==
LOC: YASAS 17:00 → Y3N 19:24
PROVIDERS: ADMIT Internal Medicine; ATTEND Internal Medicine
PROC: HZ2ZZZZ Detoxification Services for Substance Abuse Treatment (ICD-10-PCS; principal; 2017-04-28)
DX: F10.230 Alcohol dependence with withdrawal, uncomplicated (principal); F17.210 Nicotine dependence, cigarettes, uncomplicated; F41.9 Anxiety disorder, unspecified; K21.9 Gastro-esophageal reflux disease without esophagitis; H04.129 Dry eye syndrome of unspecified lacrimal gland; D72.829 Elevated white blood cell count, unspecified; R79.89 Other specified abnormal findings of blood chemistry; M13.861 Other specified arthritis, right knee; G47.00 Insomnia, unspecified; H53.149 Visual discomfort, unspecified; Z88.0 Allergy status to penicillin; Z91.018 Allergy to other foods
CPT/HCPCS: 36415; 71046-TC; 80048; 80053; 81003; 85025; 85027; 86593; 86803; 93005; 93010

== ENCOUNTER 2017-08-17 14:02 | Inpatient (IN) | payer BC ==
[2017-08-17 14:47] VITALS: BMI 29.5
--- NOTE | 2017-08-17 17:13 | HP ---
CIWA Score - CIWA Score Nausea/Vomitin-Mild Nausea/No Vomiting Muscle Tremors: 3 Anxiety: 2 Agitation: 2 Paroxysmal Sweats: 1-Minimal Palms Moist Orientation: 0-Oriented Tacttile Disturbances: 0-None Auditory Disturbances: 0-None Visual Disturbances: 3-Moderate Sensitivity Headache: 2-Mild CIWA-Ar Total Score: 14 Admission ROS BHS - HPI Chief Complaint: alcohol withdrawal symptoms Allergies/Adverse Reactions: Allergies Allergy/AdvReac Type Severity Reaction Status Date / Time Penicillins Allergy Severe Difficulty Verified 04/28/17 23:21 Breathing tomato [Tomato] Allergy Mild Itching Verified 04/28/17 23:21 tuberculin, purified protein Allergy Rash Verified 04/28/17 23:21 deriva [Tuberculin,Purif.Prot.Deriv.] History of Present Illness: 62 yo male with hx of alcohol and nicotine dependence is here seeking detox. Longest period of sobriety 9 months during 2014. Denies suicidal / homicidal ideation or suicide attempts. Denies hx of seizures or blackouts related to alcohol use. Last detox [facility] 04/27/17 -05/03/17. Exam Limitations: No Limitations (sensitivity to light) - Ebola screening Have you traveled outside of the country in the last 21 days: No Have you had contact with anyone from an Ebola affected area: No Have you been sick,other than usual withdrawal symptoms: No Do you have a fever: No - Review of Systems Constitutional: No Symptoms Reported EENT: reports: Other Respiratory: reports: No Symptoms reported Cardiac: reports: Lightheadedness GI: reports: Poor Appetite (not eating for the past 5 days), Poor Fluid Intake, Other (h) : reports: No Symptoms Reported Musculoskeletal: reports: Back Pain, Joint Pain Integumentary: reports: No Symptoms Reported Neuro: reports: Headache, Dizziness Endocrine: reports: Increased Thirst Hematology: reports: No Symptoms Reported Psychiatric: reports: Orientated x3, Anxious Other Systems: Reviewed and Negative Patient History - Patient Medical History Hx Anemia: No Hx Asthma: No Hx Chronic Obstructive Pulmonary Disease (COPD): No Hx Cancer: No Hx Cardiac Disorders: No Hx Congestive Heart Failure: No Hx Hypertension: Yes (not on meds dx 2007) Hx Hypercholesterolemia: No Hx Pacemaker: No HX Cerebrovascular Accident: No Hx Seizures: No Hx Dementia: No Hx Diabetes: No Hx Gastrointestinal Disorders: Yes (acid reflux) Hx Liver Disease: No Hx Genitourinary Disorders: No Hx Sexually Transmitted Disorders: No Hx Renal Disease (ESRD): No Hx Thyroid Disease: No Hx Human Immunodeficiency Virus (HIV): No (negative, tested 5 months ago ) Hx Hepatitis C: No Hx Depression: No Hx Suicide Attempt: No Hx Bipolar Disorder: No Hx Schizophrenia: No - Patient Surgical History Past Surgical History: No Hx Neurologic Surgery: No Hx Cataract Extraction: No Hx Cardiac Surgery: No Hx Lung Surgery: No Hx Breast Surgery: No Hx Breast Biopsy: No Hx Abdominal Surgery: No Hx Appendectomy: No Hx Cholecystectomy: No Hx Genitourinary Surgery: No Hx Section: No Hx Orthopedic Surgery: No Anesthesia Reaction: No - PPD History Previous Implant?: No Date: 12/16/14 Results: Allergic to PPD PPD to be Administered?: No - Reproductive History Patient is a Female of Child Bearing Age (11 -55 yrs old): No - Smoking Cessation Smoking history: Current every day smoker Have you smoked in the past 12 months: Yes Aproximately how many cigarettes per day: 6 Cigars Per Day: 0 Hx Chewing Tobacco Use: No Initiated information on smoking cessation: Yes 'Breaking Loose' booklet given: 08/17/17 - Substance & Tx. History Hx Alcohol Use: Yes Hx Substance Use: Yes Substance Use Type: Alcohol Hx Substance Use Treatment: Yes (Last detox [facility] 04/27/17 -05/03/17) - Substances Abused Alcohol Route: Oral Frequency: Daily Amount used: 3 pints vodka Age of first use: 19 Date of Last Use: 08/17/17 Family Disease History - Family Disease History Family Disease History: CA: Mother (BREAST) Admission Physical Exam [facility] - Vital Signs Vital Signs: Vital Signs - 24 hr 08/17/17 14:46 Temperature 96 F L Pulse Rate 98 H Respiratory 20 Rate Blood Pressure 153/89 - Physical General Appearance: Yes: Disheveled, Alcohol on Breath, Anxious HEENTM: Yes: EOMI, Hearing grossly Normal, Normal ENT Inspection, Normocephalic , Normal Voice, GLEN, Pharynx Normal, Tm's normal, Photophobia, Other (chelithis ) Respiratory: Yes: Chest Non-Tender, No Respiratory Distress Neck: Yes: Within Normal Limits Breast: Yes: Breast Exam Deferred Cardiology: Yes: Regular Rhythm, Regular Rate Abdominal: Yes: Normal Bowel Sounds, Non Tender, Soft, Protuberent, Hernia Genitourinary: Yes: Within Normal Limits Back: Yes: Normal Inspection Musculoskeletal: Yes: full range of Motion, Gait Steady, Back pain Extremities: Yes: Normal Capillary Refill, Normal Inspection, Normal Range of Motion, Non-Tender 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: 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: 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 NML intact, Fully Oriented, Alert, Motor Strength 5/5, Depressed Affect Integumentary: Yes: Normal Color, Warm, Moist Lymphatic: Yes: Within Normal Limits - Diagnostic (1) Back pain Current Visit: Yes Status: Acute (2) Alcohol dependence with uncomplicated withdrawal Current Visit: Yes Status: Acute (3) Dry eyes Current Visit: Yes Status: Chronic Comment: with sensitivity to light (4) GERD (gastroesophageal reflux disease) Current Visit: Yes Status: Chronic Qualifiers: Esophagitis presence: without esophagitis Qualified Code(s): K21.9 - Gastro -esophageal reflux disease without esophagitis (5) Hemorrhoids Current Visit: Yes Status: Chronic Qualifiers: Hemorrhoid type: unspecified Qualified Code(s): K64.9 - Unspecified hemorrhoids (6) Hip arthritis Current Visit: Yes Status: Chronic (7) Elevated blood pressure reading Current Visit: Yes Status: Acute Cleared for Admission [facility] - Detox or Rehab [facility] Level of Care: Medically Managed Detox Regimen/Protocol: Librium [facility] Breath Alcohol Content Breath Alcohol Content: 0.373 Urine Drug Screen - Results Drug Screen Negative: Yes
[2017-08-17] MEDS ORDERED: P-EPHED 60MG/TRIPROLIDI 2.5MG TABLET PO PRN (17:32)
[2017-08-17] MEDS ORDERED: MENTHOL/PHENOL 1 EACH UD MM PRN (17:32)
[2017-08-17] MEDS ORDERED: MAGNESIUM HYDROX 2400MG/30ML ORAL SUSPENSION 30 ML CUP PO PRN (17:32)
[2017-08-17] MEDS ORDERED: chlordiazePOXIDE HCL 25 MG CAPSULE PO PRN (17:32)
[2017-08-17] MEDS ORDERED: LOPERAMIDE HCL 2 MG CAPSULE PO PRN (17:32)
[2017-08-17] MEDS ORDERED: MAGNESIUM CITRATE 300 ML BOTTLE PO PRN (17:32)
[2017-08-17] MEDS ORDERED: hydrOXYzine PAMOATE 50 MG CAPSULE (FP) PO PRN (17:32)
[2017-08-17] MEDS ORDERED: NICOTINE POLACRILEX 2 MG GUM BUC PRN (17:32)
[2017-08-17] MEDS ORDERED: guaiFENesin/D-METHORPHAN HB 10 ML UNIT-DOSE CUPS PO PRN (17:32)
[2017-08-17] MEDS ORDERED: IBUPROFEN 400 MG TABLET (FP) PO PRN (17:32)
[2017-08-17] MEDS ORDERED: ACETAMINOPHEN 325 MG TABLET (FP) PO PRN (17:32)
[2017-08-17] MEDS ORDERED: chlordiazePOXIDE HCL 25 MG CAPSULE PO ONE (18:00)
[2017-08-17] MEDS ORDERED: ARTIFICIAL TEARS (POLYVINYL ALCOHOL 1.4%) OPTH DROPS OU PRN (18:15)
[2017-08-17] MEDS: CYCLOBENZAPRINE HCL 5 MG TABLET PO PRN (21:36)
[2017-08-17] MEDS ORDERED: PATIENT'S OWN MEDICATION (NON-FORMULARY) (Hypromellose 0.5% Opth Soln [Artificial Tears] 1 OU SCH (22:00)
[2017-08-17] MEDS: chlordiazePOXIDE HCL 25 MG CAPSULE PO SCH (22:16)
[2017-08-17] MEDS: HYDROCORTISONE 2.5% TOPICAL CREAM 30 GM TUBE RC SCH (22:16)
[2017-08-17] MEDS: THIAMINE HCL 100 MG TABLET (FP) PO SCH (22:17)
[2017-08-17 23:01] LABS: URINE APPEARANCE CLEAR; URINE BILIRUBIN NEGATIVE (<2.0 mg/dL); URINE BLOOD NEGATIVE (NEGATIVE); URINE COLOR STRAW; URINE GLUCOSE (UA) NEGATIVE (NEGATIVE); URINE KETONE NEGATIVE (NEGATIVE); URINE LEUK ESTERASE NEGATIVE (NEGATIVE); URINE NITRITE NEGATIVE (NEGATIVE); URINE PROTEIN NEGATIVE (NEGATIVE); URINE UROBILINOGEN NEGATIVE mg/dL (0.2-1.0)
[2017-08-18] MEDS: chlordiazePOXIDE HCL 25 MG CAPSULE PO SCH ×4 (05:13→22:20)
[2017-08-18] MEDS ORDERED: SODIUM CHLORIDE NASAL SPRAY 44 ML BOTTLE NS PRN (09:06)
--- NOTE | 2017-08-18 09:13 | PN ---
S CIWA - CIWA Score Nausea/Vomitin Muscle Tremors: 2 Anxiety: 3 Agitation: 2 Paroxysmal Sweats: 1-Minimal Palms Moist Orientation: 0-Oriented Tacttile Disturbances: 1-Very Mild Itch/Numbness Auditory Disturbances: 0-None Visual Disturbances: 0-None Headache: 1-Very Mild CIWA-Ar Total Score: 13 BHS Progress Note (SOAP) Subjective: nausea , sweats, interrupeted sleep, anxiety, tremors, back pain requesting to rerstart home medications for pain and tears Objective: 08/18/17 09:11 Vital Signs - 24 hr 08/17/17 08/17/17 08/17/17 14:46 21:00 22:00 Temperature 96 F L 98.1 F Pulse Rate 98 H 103 H 103 H Respiratory 20 18 18 Rate Blood Pressure 153/89 150/87 08/18/17 08/18/17 03:30 07:19 Temperature 98 F Pulse Rate 99 H Respiratory 18 18 Rate Blood Pressure 120/74 Vital Signs - 24 hr 08/17/17 08/17/17 08/17/17 14:46 21:00 22:00 Temperature 96 F L 98.1 F Pulse Rate 98 H 103 H 103 H Respiratory 20 18 18 Rate Blood Pressure 153/89 150/87 08/18/17 08/18/17 03:30 07:19 Temperature 98 F Pulse Rate 99 H Respiratory 18 18 Rate Blood Pressure 120/74 Laboratory Tests 08/17/17 21:02 Urine Color Straw Urine Appearance Clear Urine pH 6.0 Ur Specific [place] 1.005 Urine Protein Negative Urine Glucose (UA) Negative Urine Ketones Negative Urine Blood Negative Urine Nitrite Negative Urine Bilirubin Negative Urine Urobilinogen Negative Ur Leukocyte Esterase Negative labs still pending Assessment: 08/18/17 09:12 withdrawal sx, - cotn detox, fouids, arthritis- naproxena nd zantac restarted from home medications, artifical tears and nasal spray, flonase ordered. encoruage ambualtion
--- NOTE | 2017-08-18 09:39 | CONSULT ---
[facility] Psychiatric Consult - Data Date of interview: 08/18/17 Admission source: [facility] Identifying data: Patient is a 62 year old male, single, without kids, unemployed, not receiving any financial assistance and currently homeless. This is one of multiple admissions for patient. Pt. admitted to for alcohol dependence. Substance Abuse History: Following information confirmed with Mr. Salvador: Smoking Cessation. Smoking history: Current every day smoker. Have you smoked in the past 12 months: Yes. Aproximately how many cigarettes per day: 6. Cigars Per Day: 0. Hx Chewing Tobacco Use: No. Initiated information on smoking cessation: Yes. 'Breaking Loose' booklet given: 08/17/17. - Substance & Tx. History. Hx Alcohol Use: Yes. Hx Substance Use: Yes. Substance Use Type : Alcohol. Hx Substance Use Treatment: Yes (Last detox [facility] 04/27/17 -05/03/17). - Substances Abused. Alcohol. Route: Oral. Frequency: Daily. Amount used: 3 pints vodka. Age of first use: 19. Date of Last Use: 08/17/17 Medical History: Hypertension, Acid reflux Psychiatric History: Pt. denies h/o psychiatric hospitalizations, outpatient care, and suicide attempt. Physical/Sexual Abuse/Trauma History: Denies. Mental Status Exam - Mental Status Exam Alert and Oriented to: Time, Place, Person Cognitive Function: Good Patient Appearance: Well Groomed Mood: Euthymic Affect: Mood Congruent Patient Behavior: Cooperative Speech Pattern: Appropriate Voice Loudness: Normal Thought Process: Goal Oriented Thought Disorder: Not Present Hallucinations: Denies Suicidal Ideation: Denies Homicidal Ideation: Denies Insight/Judgement: Poor Sleep: Fair Appetite: Fair Muscle strength/Tone: Normal Gait/Station: Other (Did not observe patient's gait.) Psychiatric Findings - Problem List ([place] 1, 2,3) (1) Alcohol dependence with uncomplicated withdrawal Current Visit: Yes Status: Acute (2) Nicotine dependence Current Visit: Yes Status: Chronic - Initial Treatment Plan Initial Treatment Plan: Psychoeducation provided. Detoxification in progress. Observation.
--- NOTE | 2017-08-18 09:59 | EKG ---
Test Reason : Blood Pressure : / mmHG Vent. Rate : 097 BPM Atrial Rate : 097 BPM P-R Int : 174 ms QRS Dur : 086 ms QT Int : 350 ms P-R-T Axes : 052 008 027 degrees QTc Int : 444 ms NORMAL SINUS RHYTHM CANNOT RULE OUT ANTERIOR INFARCT , AGE UNDETERMINED ABNORMAL ECG WHEN COMPARED WITH ECG OF 29-APR-2017 00:38, NO SIGNIFICANT CHANGE WAS FOUND Confirmed by QUIANA GODINEZ MD ([id number]) on 08/18/2017 9:59:44 AM Referred By: Confirmed By:QUIANA GODINEZ MD
--- NOTE | 2017-08-18 10:00 | PN ---
S CIWA - CIWA Score Nausea/Vomitin Muscle Tremors: 3 Anxiety: 3 Agitation: 3 Paroxysmal Sweats: 1-Minimal Palms Moist Orientation: 0-Oriented Tacttile Disturbances: 1-Very Mild Itch/Numbness Auditory Disturbances: 0-None Visual Disturbances: 0-None Headache: 0-None Present CIWA-Ar Total Score: 14 BHS Progress Note (SOAP) Subjective: nausea, sweats, itnerrupted sleep, anxiety, tremors Objective: 08/18/17 09:59 Vital Signs - 24 hr 08/17/17 08/17/17 08/17/17 14:46 21:00 22:00 Temperature 96 F L 98.1 F Pulse Rate 98 H 103 H 103 H Respiratory 20 18 18 Rate Blood Pressure 153/89 150/87 08/18/17 08/18/17 03:30 07:19 Temperature 98 F Pulse Rate 99 H Respiratory 18 18 Rate Blood Pressure 120/74 Laboratory Tests 08/17/17 21:02 Urine Color Straw Urine Appearance Clear Urine pH 6.0 Ur Specific [place] 1.005 Urine Protein Negative Urine Glucose (UA) Negative Urine Ketones Negative Urine Blood Negative Urine Nitrite Negative Urine Bilirubin Negative Urine Urobilinogen Negative Ur Leukocyte Esterase Negative labs still pending Assessment: 08/18/17 09:59 withdrawal sx - cotn detox,fluids, encourage ambulation
[2017-08-18] MEDS: ARTIFICIAL TEARS (POLYVINYL ALCOHOL 1.4%) OPTH DROPS OU SCH ×2 (10:08→22:19)
[2017-08-18] MEDS: HYDROCORTISONE 2.5% TOPICAL CREAM 30 GM TUBE RC SCH ×2 (10:08→22:20)
[2017-08-18] MEDS: FLUTICASONE PROP 0.05% 16 GM NASAL SPRAY NS SCH ×2 (10:09→22:18)
[2017-08-18] MEDS: PRENATAL VITAMINS W/ FOLIC ACID TABLET (FP) PO SCH (10:09)
[2017-08-18] MEDS: CYCLOBENZAPRINE HCL 5 MG TABLET PO PRN ×2 (10:09→22:20)
[2017-08-18] MEDS: NAPROXEN 500 MG TABLET (FP) PO PRN ×2 (10:10→22:20)
[2017-08-18 10:45] LABS: HEMATOCRIT 38.3 % (35.4-49); HEMOGLOBIN 13.1 GM/dL (11.7-16.9); MCH 32.1 pg (25.7-33.7); MCHC 34.2 g/dl (32.0-35.9); MEAN CELL VOLUME 93.8 fl (80-96); MEAN PLT VOLUME 8.2 fl (7.5-11.1); PLATELET COUNT 229 K/MM3 (134-434); RBC 4.09 M/mm3 (4.00-5.60); RDW 13.8 % (11.9-15.9); WHITE BLOOD COUNT 6.6 K/mm3 (4.0-10.0)
[2017-08-18 10:53] LABS: CHLORIDE 105 mmol/L (98-107); POTASSIUM 4.3 mmol/L (3.5-5.1); SODIUM 140 mmol/L (136-145)
[2017-08-18 11:04] LABS: ALBUMIN 3.9 g/dl (3.4-5.0); ALK PHOS 60 U/L (45-117); ANION GAP 12 (8-16); BILIRUBIN,TOTAL 0.6 mg/dL (0.2-1.0); BLOOD UREA NITROGEN 20 mg/dL (7-18); CALCIUM 8.4 mg/dL (8.5-10.1); CO2 23 mmol/L (21-32); CREATININE 1.2 mg/dL (0.7-1.3); GLUCOSE,RANDOM 71 mg/dL (74-106); SGOT/AST 44 U/L (15-37); SGPT/ALT 43 U/L (12-78); TOT PROT 7.1 g/dl (6.4-8.2)
[2017-08-18] MEDS: NICOTINE 14 MG/24 HOURS TOPICAL PATCH TD SCH (11:35)
[2017-08-18] MEDS: RANITIDINE HCL 150 MG TABLET (FP) PO SCH (17:29)
[2017-08-18] MEDS: THIAMINE HCL 100 MG TABLET (FP) PO SCH (22:17)
[2017-08-18] MEDS: MAG HYDROX/AL HYDROX/SIMETH 30 ML UNIT-DOSE CUP PO PRN (22:18)
[2017-08-18] MEDS: DOCUSATE SODIUM 100 MG CAPSULE (FP) PO SCH (22:19)
[2017-08-18] MEDS: HYDROCORTISONE ACETATE 25 MG/SUPP.RECT RC SCH (22:20)
[2017-08-19] MEDS: chlordiazePOXIDE HCL 25 MG CAPSULE PO SCH ×3 (05:54→17:32)
[2017-08-19] MEDS: RANITIDINE HCL 150 MG TABLET (FP) PO SCH ×2 (07:49→17:32)
[2017-08-19] MEDS: NAPROXEN 500 MG TABLET (FP) PO PRN ×2 (07:50→17:34)
[2017-08-19] MEDS: FLUTICASONE PROP 0.05% 16 GM NASAL SPRAY NS SCH ×2 (10:46→22:43)
[2017-08-19] MEDS: ARTIFICIAL TEARS (POLYVINYL ALCOHOL 1.4%) OPTH DROPS OU SCH ×2 (10:47→22:43)
[2017-08-19] MEDS: PRENATAL VITAMINS W/ FOLIC ACID TABLET (FP) PO SCH (10:47)
[2017-08-19] MEDS: HYDROCORTISONE 2.5% TOPICAL CREAM 30 GM TUBE RC SCH ×2 (10:49→22:42)
[2017-08-19] MEDS: NICOTINE 14 MG/24 HOURS TOPICAL PATCH TD SCH (10:50)
--- NOTE | 2017-08-19 14:44 | PN ---
BHS Progress Note (SOAP) Subjective: sweats shakes Diarrhea Objective: 08/19/17 14:42 A & O x 3 Vital Signs Temperature 97.7 F 08/19/17 14:27 Pulse Rate 91 H 08/19/17 14:27 Respiratory Rate 18 08/19/17 14:27 Blood Pressure 148/84 08/19/17 14:27 O2 Sat by Pulse Oximetry (%) Laboratory Last Values WBC 6.6 K/mm3 (4.0-10.0) 08/18/17 07:00 RBC 4.09 M/mm3 (4.00-5.60) 08/18/17 07:00 Hgb 13.1 GM/dL (11.7-16.9) 08/18/17 07:00 Hct 38.3 % (35.4-49) 08/18/17 07:00 MCV 93.8 fl (80-96) 08/18/17 07:00 MCH 32.1 pg (25.7-33.7) 08/18/17 07:00 MCHC 34.2 g/dl (32.0-35.9) 08/18/17 07:00 RDW 13.8 % (11.9-15.9) 08/18/17 07:00 Plt Count 229 K/MM3 (134-434) 08/18/17 07:00 MPV 8.2 fl (7.5-11.1) 08/18/17 07:00 Sodium 140 mmol/L (136-145) 08/18/17 07:00 Potassium 4.3 mmol/L (3.5-5.1) 08/18/17 07:00 Chloride 105 mmol/L (98-107) 08/18/17 07:00 Carbon Dioxide 23 mmol/L (21-32) 08/18/17 07:00 Anion Gap 12 (8-16) 08/18/17 07:00 BUN 20 mg/dL (7-18) H D 08/18/17 07:00 Creatinine 1.2 mg/dL (0.7-1.3) 08/18/17 07:00 Creat Clearance w eGFR > 60 (>60) 08/18/17 07:00 Random Glucose 71 mg/dL (74-106) L D 08/18/17 07:00 Calcium 8.4 mg/dL (8.5-10.1) L 08/18/17 07:00 Total Bilirubin 0.6 mg/dL (0.2-1.0) 08/18/17 07:00 AST 44 U/L (15-37) H 08/18/17 07:00 ALT 43 U/L (12-78) 08/18/17 07:00 Alkaline Phosphatase 60 U/L (45-117) 08/18/17 07:00 Total Protein 7.1 g/dl (6.4-8.2) 08/18/17 07:00 Albumin 3.9 g/dl (3.4-5.0) 08/18/17 07:00 Urine Color Straw 08/17/17 21:02 Urine Appearance Clear 08/17/17 21:02 Urine pH 6.0 (5.0-8.0) 08/17/17 21:02 Ur Specific [place] 1.005 (1.001-1.035) 08/17/17 21:02 Urine Protein Negative (NEGATIVE) 08/17/17 21:02 Urine Glucose (UA) Negative (NEGATIVE) 08/17/17 21:02 Urine Ketones Negative (NEGATIVE) 08/17/17 21:02 Urine Blood Negative (NEGATIVE) 08/17/17 21:02 Urine Nitrite Negative (NEGATIVE) 08/17/17 21:02 Urine Bilirubin Negative (<2.0 mg/dL) 08/17/17 21:02 Urine Urobilinogen Negative mg/dL (0.2-1.0) 08/17/17 21:02 Ur Leukocyte Esterase Negative (NEGATIVE) 08/17/17 21:02 RPR Titer Nonreactive (NONREACTIVE) 08/18/17 07:00 labs noted Assessment: 08/19/17 14:43 withdrawal sx Plan: continue detox and hydration
[2017-08-19] MEDS: MAG HYDROX/AL HYDROX/SIMETH 30 ML UNIT-DOSE CUP PO PRN (17:35)
[2017-08-19] MEDS: DOCUSATE SODIUM 100 MG CAPSULE (FP) PO SCH (22:39)
[2017-08-19] MEDS: HYDROCORTISONE ACETATE 25 MG/SUPP.RECT RC SCH (22:41)
[2017-08-19] MEDS: THIAMINE HCL 100 MG TABLET (FP) PO SCH (22:42)
[2017-08-19] MEDS: chlordiazePOXIDE 5 MG CAPSULE PO SCH (22:43)
[2017-08-20] MEDS: chlordiazePOXIDE 5 MG CAPSULE PO SCH ×3 (06:13→17:54)
[2017-08-20] MEDS: RANITIDINE HCL 150 MG TABLET (FP) PO SCH ×2 (06:35→17:54)
[2017-08-20] MEDS: PRENATAL VITAMINS W/ FOLIC ACID TABLET (FP) PO SCH (10:46)
[2017-08-20] MEDS: ARTIFICIAL TEARS (POLYVINYL ALCOHOL 1.4%) OPTH DROPS OU SCH ×2 (10:46→22:36)
[2017-08-20] MEDS: HYDROCORTISONE 2.5% TOPICAL CREAM 30 GM TUBE RC SCH ×2 (10:47→22:36)
[2017-08-20] MEDS: FLUTICASONE PROP 0.05% 16 GM NASAL SPRAY NS SCH ×2 (10:48→22:37)
[2017-08-20] MEDS: NAPROXEN 500 MG TABLET (FP) PO PRN (10:50)
[2017-08-20] MEDS: NICOTINE 14 MG/24 HOURS TOPICAL PATCH TD SCH (10:50)
--- NOTE | 2017-08-20 12:40 | PN ---
BHS Progress Note (SOAP) Subjective: feeling better no tremor less sweat sleep better no gi distress Objective: 08/20/17 12:39 Vital Signs Temperature 97.7 F 08/20/17 10:00 Pulse Rate 93 H 08/20/17 10:00 Respiratory Rate 18 08/20/17 10:00 Blood Pressure 156/85 08/20/17 10:00 O2 Sat by Pulse Oximetry (%) Laboratory Last Values WBC 6.6 K/mm3 (4.0-10.0) 08/18/17 07:00 RBC 4.09 M/mm3 (4.00-5.60) 08/18/17 07:00 Hgb 13.1 GM/dL (11.7-16.9) 08/18/17 07:00 Hct 38.3 % (35.4-49) 08/18/17 07:00 MCV 93.8 fl (80-96) 08/18/17 07:00 MCH 32.1 pg (25.7-33.7) 08/18/17 07:00 MCHC 34.2 g/dl (32.0-35.9) 08/18/17 07:00 RDW 13.8 % (11.9-15.9) 08/18/17 07:00 Plt Count 229 K/MM3 (134-434) 08/18/17 07:00 MPV 8.2 fl (7.5-11.1) 08/18/17 07:00 Sodium 140 mmol/L (136-145) 08/18/17 07:00 Potassium 4.3 mmol/L (3.5-5.1) 08/18/17 07:00 Chloride 105 mmol/L (98-107) 08/18/17 07:00 Carbon Dioxide 23 mmol/L (21-32) 08/18/17 07:00 Anion Gap 12 (8-16) 08/18/17 07:00 BUN 20 mg/dL (7-18) H D 08/18/17 07:00 Creatinine 1.2 mg/dL (0.7-1.3) 08/18/17 07:00 Creat Clearance w eGFR > 60 (>60) 08/18/17 07:00 Random Glucose 71 mg/dL (74-106) L D 08/18/17 07:00 Calcium 8.4 mg/dL (8.5-10.1) L 08/18/17 07:00 Total Bilirubin 0.6 mg/dL (0.2-1.0) 08/18/17 07:00 AST 44 U/L (15-37) H 08/18/17 07:00 ALT 43 U/L (12-78) 08/18/17 07:00 Alkaline Phosphatase 60 U/L (45-117) 08/18/17 07:00 Total Protein 7.1 g/dl (6.4-8.2) 08/18/17 07:00 Albumin 3.9 g/dl (3.4-5.0) 08/18/17 07:00 Urine Color Straw 08/17/17 21:02 Urine Appearance Clear 08/17/17 21:02 Urine pH 6.0 (5.0-8.0) 08/17/17 21:02 Ur Specific [place] 1.005 (1.001-1.035) 08/17/17 21:02 Urine Protein Negative (NEGATIVE) 08/17/17 21:02 Urine Glucose (UA) Negative (NEGATIVE) 08/17/17 21:02 Urine Ketones Negative (NEGATIVE) 08/17/17 21:02 Urine Blood Negative (NEGATIVE) 08/17/17 21:02 Urine Nitrite Negative (NEGATIVE) 08/17/17 21:02 Urine Bilirubin Negative (<2.0 mg/dL) 08/17/17 21:02 Urine Urobilinogen Negative mg/dL (0.2-1.0) 08/17/17 21:02 Ur Leukocyte Esterase Negative (NEGATIVE) 08/17/17 21:02 RPR Titer Nonreactive (NONREACTIVE) 08/18/17 07:00 lab noted Assessment: 08/20/17 12:39 mild withdrawal sx Plan: medically supervised detox
[2017-08-20] MEDS: MAG HYDROX/AL HYDROX/SIMETH 30 ML UNIT-DOSE CUP PO PRN (15:16)
[2017-08-20] MEDS: HYDROCORTISONE ACETATE 25 MG/SUPP.RECT RC SCH (22:33)
[2017-08-20] MEDS: DOCUSATE SODIUM 100 MG CAPSULE (FP) PO SCH (22:33)
[2017-08-20] MEDS: THIAMINE HCL 100 MG TABLET (FP) PO SCH (22:33)
[2017-08-20] MEDS: chlordiazePOXIDE HCL 10 MG CAPSULE PO SCH (22:33)
[2017-08-21] MEDS: chlordiazePOXIDE HCL 10 MG CAPSULE PO SCH ×2 (05:51→10:20)
[2017-08-21] MEDS: RANITIDINE HCL 150 MG TABLET (FP) PO SCH (07:19)
--- NOTE | 2017-08-21 08:45 | PN ---
S Progress Note (SOAP) Subjective: ALERT,NO COMPLAINT Objective: 08/21/17 08:43 Vital Signs Temperature 97.7 F 08/21/17 05:00 Pulse Rate 88 08/21/17 05:00 Respiratory Rate 20 08/21/17 05:00 Blood Pressure 148/93 08/21/17 05:00 O2 Sat by Pulse Oximetry (%) Assessment: 08/21/17 08:43 DETOX COMPLETED,NO WITHDRAWAL SYMPTOM Plan: DISCHARGE TODAY,FOLLOW UP WITH AFTER CARE PROGRAM ARRANGEMENT
--- NOTE | 2017-08-21 08:49 | DS ---
[facility] Detox Discharge Summary Admission Date: 08/17/17 Discharge Date: 08/21/17 - History Present History: Alcohol Dependence Additional Comments: FOLLOW UP WITH [facility] ARRANGEMENT Pertinent Past History: GERD BACK PAIN ARTHRITIS - Physical Exam Results Vital Signs: Vital Signs Temperature 97.7 F 08/21/17 05:00 Pulse Rate 88 08/21/17 05:00 Respiratory Rate 20 08/21/17 05:00 Blood Pressure 148/93 08/21/17 05:00 O2 Sat by Pulse Oximetry (%) Pertinent Admission Physical Exam Findings: WITHDRAWAL SIGNS AND SYMPTOM Laboratory Last Values WBC 6.6 K/mm3 (4.0-10.0) 08/18/17 07:00 RBC 4.09 M/mm3 (4.00-5.60) 08/18/17 07:00 Hgb 13.1 GM/dL (11.7-16.9) 08/18/17 07:00 Hct 38.3 % (35.4-49) 08/18/17 07:00 MCV 93.8 fl (80-96) 08/18/17 07:00 MCH 32.1 pg (25.7-33.7) 08/18/17 07:00 MCHC 34.2 g/dl (32.0-35.9) 08/18/17 07:00 RDW 13.8 % (11.9-15.9) 08/18/17 07:00 Plt Count 229 K/MM3 (134-434) 08/18/17 07:00 MPV 8.2 fl (7.5-11.1) 08/18/17 07:00 Sodium 140 mmol/L (136-145) 08/18/17 07:00 Potassium 4.3 mmol/L (3.5-5.1) 08/18/17 07:00 Chloride 105 mmol/L (98-107) 08/18/17 07:00 Carbon Dioxide 23 mmol/L (21-32) 08/18/17 07:00 Anion Gap 12 (8-16) 08/18/17 07:00 BUN 20 mg/dL (7-18) H D 08/18/17 07:00 Creatinine 1.2 mg/dL (0.7-1.3) 08/18/17 07:00 Creat Clearance w eGFR > 60 (>60) 08/18/17 07:00 Random Glucose 71 mg/dL (74-106) L D 08/18/17 07:00 Calcium 8.4 mg/dL (8.5-10.1) L 08/18/17 07:00 Total Bilirubin 0.6 mg/dL (0.2-1.0) 08/18/17 07:00 AST 44 U/L (15-37) H 08/18/17 07:00 ALT 43 U/L (12-78) 08/18/17 07:00 Alkaline Phosphatase 60 U/L (45-117) 08/18/17 07:00 Total Protein 7.1 g/dl (6.4-8.2) 08/18/17 07:00 Albumin 3.9 g/dl (3.4-5.0) 08/18/17 07:00 Urine Color Straw 08/17/17 21:02 Urine Appearance Clear 08/17/17 21:02 Urine pH 6.0 (5.0-8.0) 08/17/17 21:02 Ur Specific [place] 1.005 (1.001-1.035) 08/17/17 21:02 Urine Protein Negative (NEGATIVE) 08/17/17 21:02 Urine Glucose (UA) Negative (NEGATIVE) 08/17/17 21:02 Urine Ketones Negative (NEGATIVE) 08/17/17 21:02 Urine Blood Negative (NEGATIVE) 08/17/17 21:02 Urine Nitrite Negative (NEGATIVE) 08/17/17 21:02 Urine Bilirubin Negative (<2.0 mg/dL) 08/17/17 21:02 Urine Urobilinogen Negative mg/dL (0.2-1.0) 08/17/17 21:02 Ur Leukocyte Esterase Negative (NEGATIVE) 08/17/17 21:02 RPR Titer Nonreactive (NONREACTIVE) 08/18/17 07:00 Vital Signs Temperature 97.7 F 08/21/17 05:00 Pulse Rate 88 08/21/17 05:00 Respiratory Rate 20 08/21/17 05:00 Blood Pressure 148/93 08/21/17 05:00 O2 Sat by Pulse Oximetry (%) - Treatment Hospital Course: Detox Protocol Followed, Detoxed Safely, Responded well, Discharged Condition Good Patient has Accepted a Rehab Referral to: [facility] - Medication Discharge Medications: Ambulatory Orders Sodium Chloride [Saline Nasal [place]] 2 sprays NS Q6H PRN 04/28/15 Hypromellose 0.5% Opth Soln [Artificial Tears] 1 drop OU TID #1 drops 09/22/15 Hydrocortisone 2.5% Topical Cr [Anusol-Hc -] 1 applic RC BID #1 tube 10/13/15 Fluticasone Prop 0.05% Nasal [Flonase -] 1 spray NS BID #1 spray 01/11/17 Naproxen [Naprosyn -] 500 mg PO BID PRN #30 mg 01/11/17 Ranitidine [Zantac -] 150 mg PO BID@5203,4272 #60 tablet 08/20/17 - Diagnosis (1) Alcohol dependence with uncomplicated withdrawal Current Visit: Yes Status: Acute (2) Back pain Current Visit: Yes Status: Acute (3) GERD (gastroesophageal reflux disease) Current Visit: Yes Status: Chronic Qualifiers: Esophagitis presence: without esophagitis Qualified Code(s): K21.9 - Gastro -esophageal reflux disease without esophagitis (4) Hip arthritis Current Visit: Yes Status: Chronic (5) Dry eyes Current Visit: Yes Status: Chronic - AMA Did Patient Leave Against Medical Advice: No
[2017-08-21] MEDS: ARTIFICIAL TEARS (POLYVINYL ALCOHOL 1.4%) OPTH DROPS OU SCH (10:20)
[2017-08-21] MEDS: PRENATAL VITAMINS W/ FOLIC ACID TABLET (FP) PO SCH (10:20)
[2017-08-21] MEDS: FLUTICASONE PROP 0.05% 16 GM NASAL SPRAY NS SCH (10:20)
[2017-08-21] MEDS: NICOTINE 14 MG/24 HOURS TOPICAL PATCH TD SCH (10:22)
[2017-08-21] MEDS: HYDROCORTISONE 2.5% TOPICAL CREAM 30 GM TUBE RC SCH (11:00)
[2017-08-21] MEDS: MAG HYDROX/AL HYDROX/SIMETH 30 ML UNIT-DOSE CUP PO PRN (11:46)
[2017-08-21] MEDS: NAPROXEN 500 MG TABLET (FP) PO PRN (11:46)
[2017-08-21 14:38] VITALS: BP 141/78; PULSE 104; TEMP 97.9
== END 2017-08-21 13:36 | disposition home or self-care (01) | DRG 775 ==
LOC: YASAS 14:02 → Y6N 17:02
PROVIDERS: ADMIT Internal Medicine; ATTEND Internal Medicine
PROC: HZ2ZZZZ Detoxification Services for Substance Abuse Treatment (ICD-10-PCS; principal; 2017-08-17)
PROC: HZ2ZZZZ Detoxification Services for Substance Abuse Treatment (ICD-10-PCS; 2017-08-17)
DX: F10.230 Alcohol dependence with withdrawal, uncomplicated (principal); F12.20 Cannabis dependence, uncomplicated; F17.210 Nicotine dependence, cigarettes, uncomplicated; I38 Endocarditis, valve unspecified; K21.9 Gastro-esophageal reflux disease without esophagitis; M54.5 Low back pain; M12.9 Arthropathy, unspecified; H04.123 Dry eye syndrome of bilateral lacrimal glands; K64.9 Unspecified hemorrhoids; R03.0 Elevated blood-pressure reading, without diagnosis of hypertension; R79.89 Other specified abnormal findings of blood chemistry; Z88.8 Allergy status to other drugs, medicaments and biological substances; Z91.018 Allergy to other foods
CPT/HCPCS: 36415; 80053; 81003; 85027; 86593; 93005; 93010

== ENCOUNTER 2017-09-23 08:39 | Inpatient (IN) | payer BC ==
[2017-09-23 09:04] VITALS: BMI 29.9
--- NOTE | 2017-09-23 09:29 | HP ---
CIWA Score - CIWA Score Nausea/Vomitin-Mild Nausea/No Vomiting Muscle Tremors: 4-Moderate,w/Arms Extend Anxiety: 4-Mod. Anxious/Guarded Agitation: 1-Slight > Activity Paroxysmal Sweats: No Perspiration Orientation: 1-Uncertain about Date Tacttile Disturbances: 0-None Auditory Disturbances: 1-Very Mild Visual Disturbances: 2-Mild Sensitivity Headache: 1-Very Mild CIWA-Ar Total Score: 15 Admission ROS BHS - HPI Chief Complaint: I'm tired of drinking, I want to stop Allergies/Adverse Reactions: Allergies Allergy/AdvReac Type Severity Reaction Status Date / Time Penicillins Allergy Severe Difficulty Verified 09/23/17 09:01 Breathing tomato [Tomato] Allergy Mild Itching Verified 09/23/17 09:01 tuberculin, purified protein Allergy Rash Verified 09/23/17 09:01 deriva [Tuberculin,Purif.Prot.Deriv.] History of Present Illness: 62 yo gentleman here for detox from alcohol. Previously here 08/17/2017 and multiple other times. States he went to [facility] for detox but they had no beds. He states he is preparing for [facility] which will start in December and wants to save money. No seizures, no black outs. Wears sunglasses due to severe light sensitivity. Exam Limitations: Clinical Condition - Ebola screening Have you traveled outside of the country in the last 21 days: No Have you had contact with anyone from an Ebola affected area: No Have you been sick,other than usual withdrawal symptoms: No Do you have a fever: No - Review of Systems Constitutional: Loss of Appetite, Malaise, Changes in sleep EENT: reports: Blurred Vision, Nose Congestion, Other (photophobia) Respiratory: reports: No Symptoms reported Cardiac: reports: No Symptoms Reported GI: reports: Nausea : reports: Frequency Musculoskeletal: reports: Back Pain, Muscle Pain Integumentary: reports: Dryness Neuro: reports: Headache Endocrine: reports: No Symptoms Reported Hematology: reports: No Symptoms Reported Psychiatric: reports: Judgement Intact, Mood/Affect Appropiate, Anxious Patient History - Patient Medical History Hx Anemia: No Hx Asthma: No Hx Chronic Obstructive Pulmonary Disease (COPD): No Hx Cancer: No Hx Cardiac Disorders: No Hx Congestive Heart Failure: No Hx Hypertension: No Hx Hypercholesterolemia: No Hx Pacemaker: No HX Cerebrovascular Accident: No Hx Seizures: No Hx Dementia: No Hx Diabetes: No Hx Gastrointestinal Disorders: Yes (acid reflux) Hx Liver Disease: No Hx Genitourinary Disorders: No Hx Sexually Transmitted Disorders: No Hx Renal Disease (ESRD): No Hx Thyroid Disease: No Hx Human Immunodeficiency Virus (HIV): No (negative, tested 5 months ago ) Hx Hepatitis C: No Hx Depression: No Hx Suicide Attempt: No Hx Bipolar Disorder: No Hx Schizophrenia: No Other Medical History: eye sensitivity, hip arthritis - Patient Surgical History Past Surgical History: No Hx Neurologic Surgery: No Hx Cataract Extraction: No Hx Cardiac Surgery: No Hx Lung Surgery: No Hx Breast Surgery: No Hx Breast Biopsy: No Hx Abdominal Surgery: No Hx Appendectomy: No Hx Cholecystectomy: No Hx Genitourinary Surgery: No Hx Section: No Hx Orthopedic Surgery: No Anesthesia Reaction: No - PPD History Previous Implant?: Yes Documented Results: Positive w/o proof Implanted On Prior [facility] Admission?: No Date: 05/02/17 (cxr negative) Results: Allergic to PPD PPD to be Administered?: No - Reproductive History Patient is a Female of Child Bearing Age (11 -55 yrs old): No (male) - Smoking Cessation Smoking history: Current every day smoker Have you smoked in the past 12 months: Yes Aproximately how many cigarettes per day: 8 Cigars Per Day: 0 Hx Chewing Tobacco Use: No Initiated information on smoking cessation: Yes 'Breaking Loose' booklet given: 09/23/17 (give on floor) - Substance & Tx. History Hx Alcohol Use: Yes Hx Substance Use: Yes Substance Use Type: Alcohol, Cocaine Hx Substance Use Treatment: Yes (detox, rehab) - Substances Abused Alcohol Route: Oral Frequency: Daily Amount used: 2 1/2 pints vodka, 3 bottles of budweiser beer Age of first use: 19 Date of Last Use: 09/23/17 Cocaine Route: Inhalation Frequency: 3-6 times per week Amount used: $200 dollars Age of first use: 24 Date of Last Use: 09/16/17 Family Disease History - Family Disease History Family Disease History: Heart Disease: Sister (five - healthy , two with HTN), CA: Mother (, BREAST), Other: Father (, no contact, ), Mother, Brother (five - healthy), Sister, Son (age 24 - lives in [place]), Daughter (age 21 - lives in [place]) Admission Physical Exam [facility] - Vital Signs Vital Signs: Vital Signs - 24 hr 09/23/17 09:02 Temperature 98.6 F Pulse Rate 101 H Respiratory 21 Rate Blood Pressure 140/82 - Physical General Appearance: Yes: Nourished, Appropriately Dressed, Moderate Distress, Anxious HEENTM: Yes: EOMI, Hearing grossly Normal, Normocephalic, Normal Voice, Pharynx Normal, Other (eyes very sensitive to light - mild conjunctiva erythema) Respiratory: Yes: Normal Breath Sounds, No Respiratory Distress Neck: Yes: No masses,lesions,Nodules, Supple Breast: Yes: Breast Exam Deferred Cardiology: Yes: Regular Rhythm, Regular Rate, Tachycardia Abdominal: Yes: Soft, Protuberent Genitourinary: Yes: Frequency Back: Yes: Normal Inspection Musculoskeletal: Yes: full range of Motion, Gait Steady, Muscle Pain Extremities: Yes: Normal Inspection, Non-Tender 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: Yes: Alert, Normal Mood/Affect, Normal Response Integumentary: Yes: Normal Color, Dry, Warm Lymphatic: Yes: Within Normal Limits - Diagnostic (1) Alcohol dependence with uncomplicated withdrawal Current Visit: Yes Status: Chronic (2) Cocaine abuse Current Visit: Yes Status: Chronic (3) Sinusitis chronic, ethmoidal Current Visit: Yes Status: Chronic (4) Dry eyes Current Visit: Yes Status: Chronic Comment: with sensitivity to light (5) GERD (gastroesophageal reflux disease) Current Visit: Yes Status: Chronic Qualifiers: Esophagitis presence: without esophagitis Qualified Code(s): K21.9 - Gastro -esophageal reflux disease without esophagitis (6) Hemorrhoids Current Visit: Yes Status: Chronic Qualifiers: Hemorrhoid type: unspecified Qualified Code(s): K64.9 - Unspecified hemorrhoids (7) Hip arthritis Current Visit: Yes Status: Chronic (8) Nicotine dependence Current Visit: Yes Status: Chronic Cleared for Admission [facility] - Detox or Rehab [facility] Level of Care: Medically Managed Detox Regimen/Protocol: Librium [facility] Breath Alcohol Content Breath Alcohol Content: 0.153 Urine Drug Screen - Results Drug Screen Negative: Yes
[2017-09-23] MEDS ORDERED: P-EPHED 60MG/TRIPROLIDI 2.5MG TABLET PO PRN (09:47)
[2017-09-23] MEDS ORDERED: MAG HYDROX/AL HYDROX/SIMETH 30 ML UNIT-DOSE CUP PO PRN (09:47)
[2017-09-23] MEDS ORDERED: MAGNESIUM CITRATE 300 ML BOTTLE PO PRN (09:47)
[2017-09-23] MEDS ORDERED: LOPERAMIDE HCL 2 MG CAPSULE PO PRN (09:47)
[2017-09-23] MEDS ORDERED: guaiFENesin/D-METHORPHAN HB 10 ML UNIT-DOSE CUPS PO PRN (09:47)
[2017-09-23] MEDS ORDERED: ACETAMINOPHEN 325 MG TABLET (FP) PO PRN (09:47)
[2017-09-23] MEDS ORDERED: hydrOXYzine PAMOATE 25 MG CAPSULE (FP) PO PRN (09:47)
[2017-09-23] MEDS ORDERED: MENTHOL/PHENOL 1 EACH UD MM PRN (09:47)
[2017-09-23] MEDS ORDERED: MAGNESIUM HYDROX 2400MG/30ML ORAL SUSPENSION 30 ML CUP PO PRN (09:47)
[2017-09-23] MEDS ORDERED: chlordiazePOXIDE HCL 25 MG CAPSULE PO PRN (09:57)
[2017-09-23] MEDS ORDERED: chlordiazePOXIDE HCL 25 MG CAPSULE PO ONE (10:30)
[2017-09-23] MEDS: PRENATAL VITAMINS W/ FOLIC ACID TABLET (FP) PO SCH (11:19)
[2017-09-23] MEDS: SODIUM CHLORIDE NASAL SPRAY 44 ML BOTTLE NS PRN (12:32)
[2017-09-23] MEDS: FLUTICASONE PROP 0.05% 16 GM NASAL SPRAY NS SCH ×2 (12:36→22:15)
--- NOTE | 2017-09-23 17:36 | EKG ---
Test Reason : Blood Pressure : / mmHG Vent. Rate : 090 BPM Atrial Rate : 090 BPM P-R Int : 188 ms QRS Dur : 088 ms QT Int : 364 ms P-R-T Axes : 038 -04 026 degrees QTc Int : 445 ms NORMAL SINUS RHYTHM NORMAL ECG WHEN COMPARED WITH ECG OF 17-AUG-2017 21:32, NO SIGNIFICANT CHANGE WAS FOUND Confirmed by ARLENE BARON MD ([id number]) on 09/23/2017 5:36:00 PM Referred By: Confirmed By:ARLENE BARON MD
[2017-09-23] MEDS: chlordiazePOXIDE HCL 25 MG CAPSULE PO SCH ×2 (17:54→22:14)
[2017-09-23] MEDS: RANITIDINE HCL 150 MG TABLET (FP) PO SCH (17:54)
[2017-09-23 21:06] LABS: URINE APPEARANCE CLEAR; URINE BILIRUBIN NEGATIVE (<2.0 mg/dL); URINE COLOR LTYELLOW; URINE GLUCOSE (UA) NEGATIVE (NEGATIVE); URINE KETONE NEGATIVE (NEGATIVE); URINE LEUK ESTERASE TRACE (NEGATIVE); URINE NITRITE NEGATIVE (NEGATIVE); URINE PROTEIN NEGATIVE (NEGATIVE); URINE UROBILINOGEN NEGATIVE mg/dL (0.2-1.0)
[2017-09-23] MEDS ORDERED: MELATONIN 5 MG TABLETS PO PRN (22:00)
[2017-09-23] MEDS: THIAMINE HCL 100 MG TABLET (FP) PO SCH (22:14)
[2017-09-23] MEDS: BENZOCAINE 28 GM HEMORRHOIDAL OINTMENT PR PRN (22:19)
[2017-09-24] MEDS: chlordiazePOXIDE HCL 25 MG CAPSULE PO SCH ×4 (05:59→22:09)
--- NOTE | 2017-09-24 06:40 | CONSULT ---
[facility] Psychiatric Consult - Data Date of interview: 09/24/17 Admission source: [facility] Identifying data: Mr Salvador is a 62 years old single Black male, father of 2 children, unemployed, homeless seeking detox treatment for alcohol and cocaine Substance Abuse History: Reports history of alcohol and cocaine use, Refer to addiction counselor's summary for further information Medical History: Significant for GERD, PPD+ and chronic photophobia (patient wears dark eyeglasses at all times). Smokes 8 cigarettes daily Psychiatric History: Denies history of previous psychiatric treatment Physical/Sexual Abuse/Trauma History: Patient denies history of emotional, physical or sexual abuse as well as DV relationship. No service Additional Comment: Reports history of 6-7 previous misedemeanor arrests. Denies being on probation Mental Status Exam - Mental Status Exam Alert and Oriented to: Time, Place, Person Cognitive Function: Fair Patient Appearance: Well Groomed Mood: Hopeful, Euthymic Patient Behavior: Cooperative Speech Pattern: Clear Voice Loudness: Normal Thought Process: Intact, Goal Oriented Thought Disorder: Not Present Hallucinations: Denies Suicidal Ideation: Denies Homicidal Ideation: Denies Insight/Judgement: Fair Sleep: Poorly Appetite: Good Muscle strength/Tone: Normal Gait/Station: Normal Psychiatric Findings - Problem List ([place] 1, 2,3) (1) Substance-induced sleep disorder Current Visit: Yes Status: Acute (2) Alcohol dependence with uncomplicated withdrawal Current Visit: Yes Status: Acute (3) Cocaine dependence Current Visit: Yes Status: Acute (4) Nicotine dependence Current Visit: Yes Status: Chronic (5) GERD (gastroesophageal reflux disease) Current Visit: Yes Status: Chronic Qualifiers: Esophagitis presence: without esophagitis Qualified Code(s): K21.9 - Gastro -esophageal reflux disease without esophagitis (6) PPD positive Current Visit: Yes Status: Acute - Initial Treatment Plan Initial Treatment Plan: 1) Start Ambien 10 mg po HS prn for insomnia. Discussed Benefit vs Risks of medication with patient and he agreed to take it. 2) Continue inpatient detoxification
[2017-09-24] MEDS: RANITIDINE HCL 150 MG TABLET (FP) PO SCH ×2 (07:01→17:33)
[2017-09-24 09:37] LABS: ALBUMIN 3.8 g/dl (3.4-5.0); ANION GAP 8 (8-16); BLOOD UREA NITROGEN 17 mg/dL (7-18); CALCIUM 8.3 mg/dL (8.5-10.1); CHLORIDE 106 mmol/L (98-107); CO2 24 mmol/L (21-32); GLUCOSE,RANDOM 143 mg/dL (74-106); HEMATOCRIT 37.9 % (35.4-49); HEMOGLOBIN 12.8 GM/dL (11.7-16.9); MCH 31.5 pg (25.7-33.7); MCHC 33.8 g/dl (32.0-35.9); MEAN CELL VOLUME 93.3 fl (80-96); MEAN PLT VOLUME 8.8 fl (7.5-11.1); PLATELET COUNT 166 K/MM3 (134-434); POTASSIUM 4.3 mmol/L (3.5-5.1); RBC 4.06 M/mm3 (4.00-5.60); RDW 13.8 % (11.9-15.9); SGOT/AST 57 U/L (15-37); SGPT/ALT 95 U/L (12-78); SODIUM 138 mmol/L (136-145); WHITE BLOOD COUNT 6.7 K/mm3 (4.0-10.0)
[2017-09-24 09:39] LABS: ALK PHOS 62 U/L (45-117); BILIRUBIN,TOTAL 0.3 mg/dL (0.2-1.0); CREATININE 1.2 mg/dL (0.7-1.3); TOT PROT 7.4 g/dl (6.4-8.2)
[2017-09-24] MEDS: PRENATAL VITAMINS W/ FOLIC ACID TABLET (FP) PO SCH (10:07)
[2017-09-24] MEDS: FLUTICASONE PROP 0.05% 16 GM NASAL SPRAY NS SCH ×2 (10:08→22:08)
[2017-09-24] MEDS: ARTIFICIAL TEARS (POLYVINYL ALCOHOL 1.4%) OPTH DROPS OU PRN ×2 (10:10→22:09)
--- NOTE | 2017-09-24 16:19 | PN ---
S CIWA - CIWA Score Nausea/Vomitin Muscle Tremors: 4-Moderate,w/Arms Extend Anxiety: 3 Agitation: 3 Paroxysmal Sweats: 3 Orientation: 0-Oriented Tacttile Disturbances: 1-Very Mild Itch/Numbness Auditory Disturbances: 0-None Visual Disturbances: 0-None Headache: 1-Very Mild CIWA-Ar Total Score: 18 BHS Progress Note (SOAP) Subjective: Diarrhea, pain in legs, sweating, anxious Objective: 09/24/17 16:16 Last Vital Signs Temp Pulse Resp BP Pulse Ox 98.0 F 84 20 137/82 09/24/17 14:51 09/24/17 14:51 09/24/17 14:51 09/24/17 14:51 Laboratory Tests 09/23/17 09/24/17 09/24/17 12:42 07:45 07:45 WBC 6.7 RBC 4.06 Hgb 12.8 Hct 37.9 MCV 93.3 MCH 31.5 MCHC 33.8 RDW 13.8 Plt Count 166 D MPV 8.8 Sodium 138 Potassium 4.3 Chloride 106 Carbon Dioxide 24 Anion Gap 8 BUN 17 Creatinine 1.2 Creat Clearance w eGFR > 60 Random Glucose 143 H D Calcium 8.3 L Total Bilirubin 0.3 D AST 57 H D ALT 95 H D Alkaline Phosphatase 62 Total Protein 7.4 Albumin 3.8 Urine Color Ltyellow Urine Appearance Clear Urine pH 5.0 Ur Specific [place] 1.008 Urine Protein Negative Urine Glucose (UA) Negative Urine Ketones Negative Urine Blood Negative Urine Nitrite Negative Urine Bilirubin Negative Urine Urobilinogen Negative Ur Leukocyte Esterase Trace Urine WBC (Auto) 14 Urine RBC (Auto) None RPR Titer 09/24/17 07:45 WBC RBC Hgb Hct MCV MCH MCHC RDW Plt Count MPV Sodium Potassium Chloride Carbon Dioxide Anion Gap BUN Creatinine Creat Clearance w eGFR Random Glucose Calcium Total Bilirubin AST ALT Alkaline Phosphatase Total Protein Albumin Urine Color Urine Appearance Urine pH Ur Specific [place] Urine Protein Urine Glucose (UA) Urine Ketones Urine Blood Urine Nitrite Urine Bilirubin Urine Urobilinogen Ur Leukocyte Esterase Urine WBC (Auto) Urine RBC (Auto) RPR Titer Nonreactive Labs reviewed: noted with serum glucose 143 Assessment: 09/24/17 16:17 Withdrawal symptoms Noted with hyperglycemia Plan: Continue detox Encouraged PO water hydration Hyperglycemia: repeat fasting glucose, send HbA1c
[2017-09-24] MEDS: SODIUM CHLORIDE NASAL SPRAY 44 ML BOTTLE NS PRN (17:54)
[2017-09-24] MEDS: NAPROXEN 500 MG TABLET (FP) PO PRN (17:55)
[2017-09-24] MEDS: BENZOCAINE 28 GM HEMORRHOIDAL OINTMENT PR PRN (17:56)
[2017-09-24] MEDS ORDERED: ZOLPIDEM TARTRATE 5 MG TABLET PO PRN (22:00)
[2017-09-24] MEDS: THIAMINE HCL 100 MG TABLET (FP) PO SCH (22:08)
[2017-09-25] MEDS: chlordiazePOXIDE HCL 25 MG CAPSULE PO SCH ×2 (05:10→10:08)
[2017-09-25] MEDS: RANITIDINE HCL 150 MG TABLET (FP) PO SCH ×2 (06:58→18:04)
[2017-09-25] MEDS ORDERED: cloNIDine HCL 0.1 MG TABLET PO ONE (07:04)
--- NOTE | 2017-09-25 07:04 | PN ---
S Progress Note Note: Patient's blood pressure this morning is B/P 155/90. Patient is asymptomatic Laboratory Last Values WBC 6.7 K/mm3 (4.0-10.0) 09/24/17 07:45 RBC 4.06 M/mm3 (4.00-5.60) 09/24/17 07:45 Hgb 12.8 GM/dL (11.7-16.9) 09/24/17 07:45 Hct 37.9 % (35.4-49) 09/24/17 07:45 MCV 93.3 fl (80-96) 09/24/17 07:45 MCH 31.5 pg (25.7-33.7) 09/24/17 07:45 MCHC 33.8 g/dl (32.0-35.9) 09/24/17 07:45 RDW 13.8 % (11.9-15.9) 09/24/17 07:45 Plt Count 166 K/MM3 (134-434) D 09/24/17 07:45 MPV 8.8 fl (7.5-11.1) 09/24/17 07:45 Sodium 138 mmol/L (136-145) 09/24/17 07:45 Potassium 4.3 mmol/L (3.5-5.1) 09/24/17 07:45 Chloride 106 mmol/L (98-107) 09/24/17 07:45 Carbon Dioxide 24 mmol/L (21-32) 09/24/17 07:45 Anion Gap 8 (8-16) 09/24/17 07:45 BUN 17 mg/dL (7-18) 09/24/17 07:45 Creatinine 1.2 mg/dL (0.7-1.3) 09/24/17 07:45 Creat Clearance w eGFR > 60 (>60) 09/24/17 07:45 Random Glucose 143 mg/dL (74-106) H D 09/24/17 07:45 Calcium 8.3 mg/dL (8.5-10.1) L 09/24/17 07:45 Total Bilirubin 0.3 mg/dL (0.2-1.0) D 09/24/17 07:45 AST 57 U/L (15-37) H D 09/24/17 07:45 ALT 95 U/L (12-78) H D 09/24/17 07:45 Alkaline Phosphatase 62 U/L (45-117) 09/24/17 07:45 Total Protein 7.4 g/dl (6.4-8.2) 09/24/17 07:45 Albumin 3.8 g/dl (3.4-5.0) 09/24/17 07:45 Urine Color Ltyellow 09/23/17 12:42 Urine Appearance Clear 09/23/17 12:42 Urine pH 5.0 (5.0-8.0) 09/23/17 12:42 Ur Specific [place] 1.008 (1.001-1.035) 09/23/17 12:42 Urine Protein Negative (NEGATIVE) 09/23/17 12:42 Urine Glucose (UA) Negative (NEGATIVE) 09/23/17 12:42 Urine Ketones Negative (NEGATIVE) 09/23/17 12:42 Urine Blood Negative (NEGATIVE) 09/23/17 12:42 Urine Nitrite Negative (NEGATIVE) 09/23/17 12:42 Urine Bilirubin Negative (<2.0 mg/dL) 09/23/17 12:42 Urine Urobilinogen Negative mg/dL (0.2-1.0) 09/23/17 12:42 Ur Leukocyte Esterase Trace (NEGATIVE) 09/23/17 12:42 Urine WBC (Auto) 14 /hpf (3-5) 09/23/17 12:42 Urine RBC (Auto) None /hpf (0-3) 09/23/17 12:42 RPR Titer Nonreactive (NONREACTIVE) 09/24/17 07:45 Action: Clonidine 0.1mg table oral ordered
[2017-09-25] MEDS: SODIUM CHLORIDE NASAL SPRAY 44 ML BOTTLE NS PRN (10:08)
[2017-09-25] MEDS: PRENATAL VITAMINS W/ FOLIC ACID TABLET (FP) PO SCH (10:08)
[2017-09-25] MEDS: FLUTICASONE PROP 0.05% 16 GM NASAL SPRAY NS SCH ×2 (10:09→22:14)
[2017-09-25] MEDS: ARTIFICIAL TEARS (POLYVINYL ALCOHOL 1.4%) OPTH DROPS OU PRN (10:10)
--- NOTE | 2017-09-25 13:35 | PN ---
S CIWA - CIWA Score Nausea/Vomitin Muscle Tremors: 3 Anxiety: 3 Agitation: 3 Paroxysmal Sweats: 3 Orientation: 0-Oriented Tacttile Disturbances: 0-None Auditory Disturbances: 0-None Visual Disturbances: 0-None Headache: 0-None Present CIWA-Ar Total Score: 14 BHS Progress Note (SOAP) Subjective: Sleep disturbance Sweats Shakes Anxious about high bp reading Objective: 09/25/17 13:33 A & O x 3 Anxious Vital Signs Temperature 97.7 F 09/25/17 10:32 Pulse Rate 100 H 09/25/17 10:32 Respiratory Rate 20 09/25/17 10:32 Blood Pressure 152/80 09/25/17 10:32 O2 Sat by Pulse Oximetry (%) Assessment: 09/25/17 13:33 withdrawal sx elevated bp reading Plan: continue detox Norvasc for high Bp continue increased hydration
[2017-09-25] MEDS: amLODIPine BESYLATE 5 MG TABLET (FP) PO SCH (15:09)
[2017-09-25] MEDS: chlordiazePOXIDE 5 MG CAPSULE PO SCH ×2 (18:04→22:14)
[2017-09-25] MEDS: HYDROCORTISONE 1% TOPICAL CREAM 30 GM TUBE TP PRN (22:13)
[2017-09-25] MEDS: THIAMINE HCL 100 MG TABLET (FP) PO SCH (22:13)
[2017-09-26] MEDS: chlordiazePOXIDE 5 MG CAPSULE PO SCH ×2 (05:22→10:11)
[2017-09-26] MEDS: RANITIDINE HCL 150 MG TABLET (FP) PO SCH ×2 (08:36→17:10)
[2017-09-26] MEDS: amLODIPine BESYLATE 5 MG TABLET (FP) PO SCH (10:11)
[2017-09-26] MEDS: ARTIFICIAL TEARS (POLYVINYL ALCOHOL 1.4%) OPTH DROPS OU PRN (10:11)
[2017-09-26] MEDS: SODIUM CHLORIDE NASAL SPRAY 44 ML BOTTLE NS PRN (10:11)
[2017-09-26] MEDS: FLUTICASONE PROP 0.05% 16 GM NASAL SPRAY NS SCH ×2 (10:12→22:19)
[2017-09-26] MEDS: PRENATAL VITAMINS W/ FOLIC ACID TABLET (FP) PO SCH (10:12)
[2017-09-26] MEDS: BENZOCAINE 28 GM HEMORRHOIDAL OINTMENT PR PRN (10:54)
[2017-09-26] MEDS: HYDROCORTISONE 1% TOPICAL CREAM 30 GM TUBE TP PRN (10:55)
[2017-09-26] MEDS: chlordiazePOXIDE HCL 10 MG CAPSULE PO SCH ×2 (17:10→22:20)
[2017-09-26] MEDS: NAPROXEN 500 MG TABLET (FP) PO PRN (17:12)
--- NOTE | 2017-09-26 21:13 | PN ---
BHS Progress Note (SOAP) Subjective: Tremors, Interrupted Sleep, Diarrhea, Sweating. Objective: PATIENT A & O X 3, OBSERVED AMBULATING ON UNIT. NO ACUTE DISTRESS. 09/26/17 21:11 Vital Signs Temperature 97.5 F L 09/26/17 17:28 Pulse Rate 96 H 09/26/17 17:28 Respiratory Rate 18 09/26/17 17:28 Blood Pressure 123/80 09/26/17 17:28 O2 Sat by Pulse Oximetry (%) Laboratory Tests 09/23/17 09/24/17 09/24/17 12:42 07:45 07:45 WBC 6.7 RBC 4.06 Hgb 12.8 Hct 37.9 MCV 93.3 MCH 31.5 MCHC 33.8 RDW 13.8 Plt Count 166 D MPV 8.8 Sodium 138 Potassium 4.3 Chloride 106 Carbon Dioxide 24 Anion Gap 8 BUN 17 Creatinine 1.2 Creat Clearance w eGFR > 60 Random Glucose 143 H D Fasting Glucose Hemoglobin A1c % Calcium 8.3 L Total Bilirubin 0.3 D AST 57 H D ALT 95 H D Alkaline Phosphatase 62 Total Protein 7.4 Albumin 3.8 Urine Color Ltyellow Urine Appearance Clear Urine pH 5.0 Ur Specific [place] 1.008 Urine Protein Negative Urine Glucose (UA) Negative Urine Ketones Negative Urine Blood Negative Urine Nitrite Negative Urine Bilirubin Negative Urine Urobilinogen Negative Ur Leukocyte Esterase Trace Urine WBC (Auto) 14 Urine RBC (Auto) None RPR Titer 09/24/17 09/25/17 09/25/17 07:45 07:55 07:55 WBC RBC Hgb Hct MCV MCH MCHC RDW Plt Count MPV Sodium Potassium Chloride Carbon Dioxide Anion Gap BUN Creatinine Creat Clearance w eGFR Random Glucose Fasting Glucose 150 H Hemoglobin A1c % 6.6 H Calcium Total Bilirubin AST ALT Alkaline Phosphatase Total Protein Albumin Urine Color Urine Appearance Urine pH Ur Specific [place] Urine Protein Urine Glucose (UA) Urine Ketones Urine Blood Urine Nitrite Urine Bilirubin Urine Urobilinogen Ur Leukocyte Esterase Urine WBC (Auto) Urine RBC (Auto) RPR Titer Nonreactive LABS NOTED. Assessment: 09/26/17 21:12 WITHDRAWAL SYMPTOMS. Plan: CONTINUE DETOX. INCREASE DAILY PO FLUID INTAKE. PRN IMMODIUM FOR DIARRHEA. PATIENT SCHEDULED FOR D/C TOMORROW.
[2017-09-26] MEDS: THIAMINE HCL 100 MG TABLET (FP) PO SCH (22:20)
[2017-09-27] MEDS: chlordiazePOXIDE HCL 10 MG CAPSULE PO SCH ×2 (05:46→10:07)
[2017-09-27] MEDS: RANITIDINE HCL 150 MG TABLET (FP) PO SCH (06:52)
[2017-09-27 09:15] VITALS: BP 111/71; PULSE 105; TEMP 97.2
[2017-09-27] MEDS: FLUTICASONE PROP 0.05% 16 GM NASAL SPRAY NS SCH (10:07)
[2017-09-27] MEDS: PRENATAL VITAMINS W/ FOLIC ACID TABLET (FP) PO SCH (10:07)
[2017-09-27] MEDS: amLODIPine BESYLATE 5 MG TABLET (FP) PO SCH (10:07)
--- NOTE | 2017-09-27 16:20 | PN ---
BHS Progress Note (SOAP) Subjective: Patient denies current Detox symptoms and reports that he feels well overall. Objective: PATIENT A & O X 3, OBSERVED AMBULATING ON UNIT. NO ACUTE DISTRESS. 09/27/17 16:19 Vital Signs Temperature 97.2 F L 09/27/17 09:12 Pulse Rate 105 H 09/27/17 09:12 Respiratory Rate 18 09/27/17 09:12 Blood Pressure 111/71 09/27/17 09:12 O2 Sat by Pulse Oximetry (%) Laboratory Tests 09/23/17 09/24/17 09/24/17 12:42 07:45 07:45 WBC 6.7 RBC 4.06 Hgb 12.8 Hct 37.9 MCV 93.3 MCH 31.5 MCHC 33.8 RDW 13.8 Plt Count 166 D MPV 8.8 Sodium 138 Potassium 4.3 Chloride 106 Carbon Dioxide 24 Anion Gap 8 BUN 17 Creatinine 1.2 Creat Clearance w eGFR > 60 Random Glucose 143 H D Fasting Glucose Hemoglobin A1c % Calcium 8.3 L Total Bilirubin 0.3 D AST 57 H D ALT 95 H D Alkaline Phosphatase 62 Total Protein 7.4 Albumin 3.8 Urine Color Ltyellow Urine Appearance Clear Urine pH 5.0 Ur Specific [place] 1.008 Urine Protein Negative Urine Glucose (UA) Negative Urine Ketones Negative Urine Blood Negative Urine Nitrite Negative Urine Bilirubin Negative Urine Urobilinogen Negative Ur Leukocyte Esterase Trace Urine WBC (Auto) 14 Urine RBC (Auto) None RPR Titer 09/24/17 09/25/17 09/25/17 07:45 07:55 07:55 WBC RBC Hgb Hct MCV MCH MCHC RDW Plt Count MPV Sodium Potassium Chloride Carbon Dioxide Anion Gap BUN Creatinine Creat Clearance w eGFR Random Glucose Fasting Glucose 150 H Hemoglobin A1c % 6.6 H Calcium Total Bilirubin AST ALT Alkaline Phosphatase Total Protein Albumin Urine Color Urine Appearance Urine pH Ur Specific [place] Urine Protein Urine Glucose (UA) Urine Ketones Urine Blood Urine Nitrite Urine Bilirubin Urine Urobilinogen Ur Leukocyte Esterase Urine WBC (Auto) Urine RBC (Auto) RPR Titer Nonreactive LABS NOTED. Assessment: 09/27/17 16:19 COMPLETION OF DETOX REGIMEN. Plan: PATIENT SCHEDULED FOR DISCHARGE FROM DETOX UNIT TODAY.
--- NOTE | 2017-09-27 16:24 | DS ---
[facility] Detox Discharge Summary Admission Date: 09/23/17 Discharge Date: 09/27/17 - History Present History: Alcohol Dependence, Cocaine Dependence Additional Comments: PATIENT DECLINES AFTERCARE REFERRAL AT THIS TIME. PATIENT ADVISED TO CONSIDER LOCAL 12-STEP / AA OUTPATIENT SUPPORT GROUPS FOR AFTERCARE. PATIENT WAS DISCHARGED FROM DETOX UNIT IN STABLE MEDICAL CONDITION. Pertinent Past History: GERD, History of Arthritis of Hip, History of Chronic Ethmoidal Sinusitis, Hemorrhoids, Nicotine Dependence, History of Positive PPD. - Physical Exam Results Vital Signs: Vital Signs Temperature 97.2 F L 09/27/17 09:12 Pulse Rate 105 H 09/27/17 09:12 Respiratory Rate 18 09/27/17 09:12 Blood Pressure 111/71 09/27/17 09:12 O2 Sat by Pulse Oximetry (%) Pertinent Admission Physical Exam Findings: WITHDRAWAL SYMPTOMS. Laboratory Tests 09/23/17 09/24/17 09/24/17 12:42 07:45 07:45 WBC 6.7 RBC 4.06 Hgb 12.8 Hct 37.9 MCV 93.3 MCH 31.5 MCHC 33.8 RDW 13.8 Plt Count 166 D MPV 8.8 Sodium 138 Potassium 4.3 Chloride 106 Carbon Dioxide 24 Anion Gap 8 BUN 17 Creatinine 1.2 Creat Clearance w eGFR > 60 Random Glucose 143 H D Fasting Glucose Hemoglobin A1c % Calcium 8.3 L Total Bilirubin 0.3 D AST 57 H D ALT 95 H D Alkaline Phosphatase 62 Total Protein 7.4 Albumin 3.8 Urine Color Ltyellow Urine Appearance Clear Urine pH 5.0 Ur Specific [place] 1.008 Urine Protein Negative Urine Glucose (UA) Negative Urine Ketones Negative Urine Blood Negative Urine Nitrite Negative Urine Bilirubin Negative Urine Urobilinogen Negative Ur Leukocyte Esterase Trace Urine WBC (Auto) 14 Urine RBC (Auto) None RPR Titer 09/24/17 09/25/17 09/25/17 07:45 07:55 07:55 WBC RBC Hgb Hct MCV MCH MCHC RDW Plt Count MPV Sodium Potassium Chloride Carbon Dioxide Anion Gap BUN Creatinine Creat Clearance w eGFR Random Glucose Fasting Glucose 150 H Hemoglobin A1c % 6.6 H Calcium Total Bilirubin AST ALT Alkaline Phosphatase Total Protein Albumin Urine Color Urine Appearance Urine pH Ur Specific [place] Urine Protein Urine Glucose (UA) Urine Ketones Urine Blood Urine Nitrite Urine Bilirubin Urine Urobilinogen Ur Leukocyte Esterase Urine WBC (Auto) Urine RBC (Auto) RPR Titer Nonreactive LABS NOTED. - Treatment Hospital Course: Detox Protocol Followed, Detoxed Safely, Responded well, Discharged Condition Good Patient has Accepted a Rehab Referral to: PT. ADVISED TO CONSIDER LOCAL 12-STEP/ AA OUTPATIENT SUPPORT GROUPS. - Medication Discharge Medications: Ambulatory Orders Sodium Chloride [Saline Nasal [place]] 2 sprays NS Q6H PRN 04/28/15 Hypromellose 0.5% Opth Soln [Artificial Tears] 1 drop OU TID #1 drops 09/22/15 Fluticasone Prop 0.05% Nasal [Flonase -] 1 spray NS BID #1 spray 01/11/17 Ranitidine [Zantac -] 150 mg PO BID@6738,1270 #60 tablet 08/20/17 - Diagnosis (1) Alcohol dependence with uncomplicated withdrawal Status: Acute (2) Cocaine dependence Status: Chronic Qualifiers: Substance use status: uncomplicated Qualified Code(s): F14.20 - Cocaine dependence, uncomplicated (3) Dry eyes Status: Chronic (4) GERD (gastroesophageal reflux disease) Status: Chronic Qualifiers: Esophagitis presence: without esophagitis Qualified Code(s): K21.9 - Gastro -esophageal reflux disease without esophagitis (5) Hemorrhoids Status: Chronic Qualifiers: Hemorrhoid type: unspecified Qualified Code(s): K64.9 - Unspecified hemorrhoids (6) Hip arthritis Status: Chronic (7) Nicotine dependence Status: Chronic (8) Sinusitis chronic, ethmoidal Status: Chronic (9) PPD positive Status: Chronic (10) Substance-induced sleep disorder Status: Chronic - AMA Did Patient Leave Against Medical Advice: No
== END 2017-09-27 09:50 | disposition home or self-care (01) | DRG 774 ==
LOC: YASAS 08:39 → Y3N 10:10
PROVIDERS: ADMIT Internal Medicine; ATTEND Internal Medicine
PROC: HZ2ZZZZ Detoxification Services for Substance Abuse Treatment (ICD-10-PCS; principal; 2017-09-23)
DX: F10.230 Alcohol dependence with withdrawal, uncomplicated (principal); F14.20 Cocaine dependence, uncomplicated; F17.210 Nicotine dependence, cigarettes, uncomplicated; F19.282 Other psychoactive substance dependence with psychoactive substance-induced sleep disorder; K21.9 Gastro-esophageal reflux disease without esophagitis; K64.9 Unspecified hemorrhoids; M13.859 Other specified arthritis, unspecified hip; J32.2 Chronic ethmoidal sinusitis; R76.11 Nonspecific reaction to tuberculin skin test without active tuberculosis; R73.9 Hyperglycemia, unspecified; H04.123 Dry eye syndrome of bilateral lacrimal glands
CPT/HCPCS: 36415; 80053; 81003; 81015; 82947; 83036; 85027; 86593; 93005; 93010; J0735

== ENCOUNTER 2018-01-29 13:47 | Inpatient (IN) | payer OTHER ==
[2018-01-29 14:38] VITALS: BMI 29.2
--- NOTE | 2018-01-29 15:43 | HP ---
CIWA Score - CIWA Score Nausea/Vomitin Muscle Tremors: 2 Anxiety: 2 Agitation: 2 Paroxysmal Sweats: 1-Minimal Palms Moist Orientation: 0-Oriented Tacttile Disturbances: 1-Very Mild Itch/Numbness Auditory Disturbances: 1-Very Mild Visual Disturbances: 1-Very Mild Sensitivity Headache: 2-Mild CIWA-Ar Total Score: 14 Admission ROS BHS - HPI Chief Complaint: i need help to stop drinking alcohol,cocaine Allergies/Adverse Reactions: Allergies Allergy/AdvReac Type Severity Reaction Status Date / Time Penicillins Allergy Severe Difficulty Verified 01/29/18 15:29 Breathing tomato [Tomato] Allergy Mild Itching Verified 01/29/18 15:29 tuberculin, purified protein Allergy Rash Verified 01/29/18 15:29 deriva [Tuberculin,Purif.Prot.Deriv.] History of Present Illness: this 62 years old male with alcohol dependence,cocaine dependence,seeking detox, withdrawal symptom,last detox [facility] 12/24/17 to 12/28/17 completed syncope alcohol related nicotine dependence no significant period of sobriety dry and sensitive skin Exam Limitations: No Limitations - Ebola screening Have you traveled outside of the country in the last 21 days: No Have you had contact with anyone from an Ebola affected area: No Have you been sick,other than usual withdrawal symptoms: No Do you have a fever: No - Review of Systems Constitutional: Loss of Appetite, Malaise, Night Sweats, Weakness EENT: reports: Nose Congestion Respiratory: reports: No Symptoms reported Cardiac: reports: Palpitations GI: reports: Nausea, Poor Appetite, Abdominal cramping : reports: No Symptoms Reported Musculoskeletal: reports: Back Pain, Muscle Pain Integumentary: reports: Dryness Endocrine: reports: No Symptoms Reported Hematology: reports: No Symptoms Reported Psychiatric: reports: No Sypmtoms Reported, Judgement Intact, Mood/Affect Appropiate, Orientated x3 Patient History - Patient Medical History Hx Anemia: No Hx Asthma: No Hx Chronic Obstructive Pulmonary Disease (COPD): No Hx Cancer: No Hx Cardiac Disorders: No Hx Congestive Heart Failure: No Hx Hypertension: Yes (no mediation) Hx Hypercholesterolemia: No Hx Pacemaker: No HX Cerebrovascular Accident: No Hx Seizures: No Hx Dementia: No Hx Diabetes: No Hx Gastrointestinal Disorders: Yes (acid reflux) Hx Liver Disease: No Hx Genitourinary Disorders: No Hx Sexually Transmitted Disorders: No (Gonorrhea years ago) Hx Renal Disease (ESRD): No Hx Thyroid Disease: No Hx Human Immunodeficiency Virus (HIV): No (09/15 negative) Hx Hepatitis C: No Hx Depression: No Hx Suicide Attempt: No (Denies SI) Hx Bipolar Disorder: No Hx Schizophrenia: No Other Medical History: no suicidal,no homicidal,sensitive and dry eye,nasonex for nose - Patient Surgical History Past Surgical History: No Hx Neurologic Surgery: No Hx Cataract Extraction: No Hx Cardiac Surgery: No Hx Lung Surgery: No Hx Breast Surgery: No Hx Breast Biopsy: No Hx Abdominal Surgery: No Hx Appendectomy: No Hx Cholecystectomy: No Hx Genitourinary Surgery: No Hx Section: No Hx Orthopedic Surgery: No Anesthesia Reaction: No - PPD History Previous Implant?: Yes Documented Results: Negative w/proof Implanted On Prior [facility] Admission?: No Date: 05/02/17 Results: Allergic to PPD PPD to be Administered?: No - Smoking Cessation Smoking history: Current every day smoker Have you smoked in the past 12 months: Yes Aproximately how many cigarettes per day: 10 Cigars Per Day: 0 Hx Chewing Tobacco Use: No Initiated information on smoking cessation: Yes 'Breaking Loose' booklet given: 01/29/18 - Substance & Tx. History Hx Alcohol Use: Yes Hx Substance Use: Yes Substance Use Type: Alcohol, Cocaine Hx Substance Use Treatment: Yes ([facility] 12/24/17 to 12/28/17) - Substances Abused Alcohol Route: Oral Frequency: Daily Amount used: 2 pints vodka/ 2 beers Age of first use: 19 Date of Last Use: 01/29/18 Cocaine Route: Inhalation Frequency: 1-3 times last 30 days Amount used: $300 Age of first use: 26 Date of Last Use: 01/15/18 Family Disease History - Family Disease History Family Disease History: Heart Disease: Sister (five - healthy , two with HTN), CA: Mother (, BREAST), Other: Father (, no contact, ), Mother, Brother (five - healthy), Sister, Son (age 24 - lives in [place]), Daughter (age 21 - lives in [place]) Admission Physical Exam BHS - Vital Signs Vital Signs: Vital Signs - 24 hr 01/29/18 14:37 Temperature 97.5 F L Pulse Rate 118 H Respiratory 20 Rate Blood Pressure 149/97 - Physical General Appearance: Yes: Moderate Distress, Tremorous, Irritable, Sweating, Anxious HEENTM: Yes: Normal ENT Inspection, GLEN, Pharynx Normal, Other (dry eye, sensitive eye sinus problem) Respiratory: Yes: Within Normal Limits, Lungs Clear, Normal Breath Sounds, No Respiratory Distress Neck: Yes: Within Normal Limits, Supple, Trachea in good position Breast: Yes: Within Normal Limits Cardiology: Yes: Tachycardia Abdominal: Yes: Normal Bowel Sounds, Soft Genitourinary: Yes: Within Normal Limits Back: Yes: Muscle Spasm Musculoskeletal: Yes: Back pain, Muscle Pain Extremities: Yes: Tremors 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: Yes: type caster II-XII NML intact, Fully Oriented, Alert, Motor Strength 5/5, Normal Mood/Affect Integumentary: Yes: Dry Lymphatic: Yes: Within Normal Limits - Diagnostic (1) Alcohol dependence with uncomplicated withdrawal Current Visit: No Status: Acute (2) Alcohol dependence with intoxication Current Visit: No Status: Acute (3) Back pain Current Visit: No Status: Acute Qualifiers: Back pain location: back pain in unspecified location Chronicity: chronic Back pain laterality: unspecified Qualified Code(s): M54.9 - Dorsalgia, unspecified; G89.29 - Other chronic pain (4) Hypertension Current Visit: No Status: Acute (5) Nicotine dependence Current Visit: No Status: Acute (6) GERD (gastroesophageal reflux disease) Current Visit: No Status: Chronic Qualifiers: Esophagitis presence: without esophagitis Qualified Code(s): K21.9 - Gastro -esophageal reflux disease without esophagitis (7) Hemorrhoids Current Visit: No Status: Chronic Qualifiers: Hemorrhoid type: unspecified Qualified Code(s): K64.9 - Unspecified hemorrhoids (8) Hip arthritis Current Visit: No Status: Chronic (9) PPD positive Current Visit: No Status: Chronic (10) Sinusitis chronic, ethmoidal Current Visit: No Status: Chronic (11) Dry eye Current Visit: Yes Status: Acute Cleared for Admission [facility] - Detox or Rehab [facility] Level of Care: Medically Managed Detox Regimen/Protocol: Librium [facility] Breath Alcohol Content Breath Alcohol Content: 0.266 Urine Drug Screen - Results Drug Screen Negative: Yes
[2018-01-29] MEDS ORDERED: chlordiazePOXIDE HCL 25 MG CAPSULE PO PRN (15:55)
[2018-01-29] MEDS ORDERED: guaiFENesin/D-METHORPHAN HB 10 ML UNIT-DOSE CUPS PO PRN (15:55)
[2018-01-29] MEDS ORDERED: P-EPHED 60MG/TRIPROLIDI 2.5MG TABLET PO PRN (15:55)
[2018-01-29] MEDS ORDERED: MAGNESIUM CITRATE 300 ML BOTTLE PO PRN (15:55)
[2018-01-29] MEDS ORDERED: MENTHOL/PHENOL 1 EACH UD MM PRN (15:55)
[2018-01-29] MEDS ORDERED: MAGNESIUM HYDROX 2400MG/30ML ORAL SUSPENSION 30 ML CUP PO PRN (15:55)
[2018-01-29] MEDS ORDERED: SODIUM CHLORIDE NASAL SPRAY 44 ML BOTTLE NS PRN (15:58)
[2018-01-29] MEDS ORDERED: NAPROXEN 500 MG TABLET (FP) PO SCH (16:00)
[2018-01-29] MEDS: chlordiazePOXIDE HCL 25 MG CAPSULE PO SCH ×2 (18:55→23:19)
[2018-01-29] MEDS ORDERED: MELATONIN 5 MG TABLETS PO PRN (22:00)
[2018-01-29] MEDS: THIAMINE HCL 100 MG TABLET (FP) PO SCH (23:19)
[2018-01-29] MEDS: ARTIFICIAL TEARS (POLYVINYL ALCOHOL) OPTH DROPS OU SCH (23:19)
[2018-01-29] MEDS: NAPROXEN 500 MG TABLET (FP) PO SCH (23:19)
[2018-01-29] MEDS: FLUTICASONE PROP 0.05% 16 GM NASAL SPRAY NS SCH (23:19)
[2018-01-29] MEDS: HYDROCORTISONE ACETATE 25 MG/SUPP.RECT RC SCH (23:19)
[2018-01-29 23:20] LABS: URINE APPEARANCE CLEAR; URINE BILIRUBIN NEGATIVE (<2.0 mg/dL); URINE COLOR LTYELLOW; URINE GLUCOSE (UA) NEGATIVE (NEGATIVE); URINE KETONE NEGATIVE (NEGATIVE); URINE LEUK ESTERASE NEGATIVE (NEGATIVE); URINE NITRITE NEGATIVE (NEGATIVE); URINE PROTEIN NEGATIVE (NEGATIVE); URINE UROBILINOGEN NEGATIVE mg/dL (0.2-1.0)
[2018-01-30] MEDS: chlordiazePOXIDE HCL 25 MG CAPSULE PO SCH ×4 (05:25→22:11)
[2018-01-30] MEDS: ARTIFICIAL TEARS (POLYVINYL ALCOHOL) OPTH DROPS OU SCH ×3 (07:58→22:13)
[2018-01-30 10:30] LABS: HEMATOCRIT 38.7 % (35.4-49); HEMOGLOBIN 13.1 GM/dL (11.7-16.9); MCHC 33.7 g/dl (32.0-35.9); MEAN PLT VOLUME 8.5 fl (7.5-11.1); PLATELET COUNT 157 K/MM3 (134-434); RBC 4.21 M/mm3 (4.00-5.60); RDW 14.8 % (11.9-15.9); WHITE BLOOD COUNT 9.3 K/mm3 (4.0-10.0)
[2018-01-30] MEDS: NAPROXEN 500 MG TABLET (FP) PO SCH ×2 (10:34→22:10)
[2018-01-30] MEDS: FLUTICASONE PROP 0.05% 16 GM NASAL SPRAY NS SCH ×2 (10:34→22:13)
[2018-01-30] MEDS: PRENATAL VITAMINS W/ FOLIC ACID TABLET (FP) PO SCH (10:34)
[2018-01-30] MEDS: HYDROCORTISONE 0.5% TOPICAL CREAM 30 GM TUBE TP SCH (10:35)
[2018-01-30 10:47] LABS: ALK PHOS 63 U/L (45-117); ANION GAP 14 MMOL/L (8-16); BILIRUBIN,TOTAL 1.1 mg/dL (0.2-1); BLOOD UREA NITROGEN 19 mg/dL (7-18); CALCIUM 8.9 mg/dL (8.5-10.1); CHLORIDE 101 mmol/L (98-107); CO2 23 mmol/L (21-32); CREATININE 1.2 mg/dL (0.55-1.3); GLUCOSE,RANDOM 96 mg/dL (74-106); POTASSIUM 4.1 mmol/L (3.5-5.1); SGOT/AST 46 U/L (15-37); SGPT/ALT 47 U/L (13-61); SODIUM 138 mmol/L (136-145); TOT PROT 7.5 g/dl (6.4-8.2)
[2018-01-30] MEDS ORDERED: TRIMETHOBENZAMIDE HCL 300 MG CAPSULE PO PRN (11:03)
--- NOTE | 2018-01-30 11:03 | PN ---
S CIWA - CIWA Score Nausea/Vomitin-Mild Nausea/No Vomiting Muscle Tremors: 4-Moderate,w/Arms Extend Anxiety: 3 Agitation: 3 Paroxysmal Sweats: 3 Orientation: 0-Oriented Tacttile Disturbances: 0-None Auditory Disturbances: 0-None Visual Disturbances: 0-None Headache: 1-Very Mild CIWA-Ar Total Score: 15 BHS Progress Note (SOAP) Subjective: nausea irritable agitation anxiety body aches Objective: 01/30/18 11:02 Vital Signs Temperature 97.9 F 01/30/18 09:14 Pulse Rate 116 H 01/30/18 09:14 Respiratory Rate 20 01/30/18 09:14 Blood Pressure 144/86 01/30/18 09:14 O2 Sat by Pulse Oximetry (%) Laboratory Tests 01/29/18 01/30/18 01/30/18 19:46 07:30 07:30 WBC 9.3 RBC 4.21 Hgb 13.1 Hct 38.7 MCV 92.0 MCH 31.0 MCHC 33.7 RDW 14.8 Plt Count 157 MPV 8.5 Sodium 138 Potassium 4.1 Chloride 101 Carbon Dioxide 23 Anion Gap 14 BUN 19 H Creatinine 1.2 Creat Clearance w eGFR > 60 Random Glucose 96 Calcium 8.9 Total Bilirubin 1.1 H AST 46 H ALT 47 Alkaline Phosphatase 63 Total Protein 7.5 Albumin 4.0 Urine Color Ltyellow Urine Appearance Clear Urine pH 5.0 Ur Specific [place] 1.008 Urine Protein Negative Urine Glucose (UA) Negative Urine Ketones Negative Urine Blood Negative Urine Nitrite Negative Urine Bilirubin Negative Urine Urobilinogen Negative Ur Leukocyte Esterase Negative aaox3 ambulating no acute distress Assessment: 01/30/18 11:03 withdrawal sx Plan: continue detox increase fluids tigan prn
--- NOTE | 2018-01-30 11:07 | EKG ---
Test Reason : Blood Pressure : / mmHG Vent. Rate : 107 BPM Atrial Rate : 107 BPM P-R Int : 168 ms QRS Dur : 082 ms QT Int : 350 ms P-R-T Axes : 045 -07 027 degrees QTc Int : 467 ms SINUS TACHYCARDIA POSSIBLE ANTERIOR INFARCT , AGE UNDETERMINED ABNORMAL ECG Confirmed by Cong Gutiérrez MD ([id number]) on 01/30/2018 11:06:58 AM Referred By: Confirmed By:Cong Gutiérrez MD
[2018-01-30] MEDS ORDERED: cloNIDine HCL 0.1 MG TABLET PO ONE (15:35)
[2018-01-30] MEDS: hydrOXYzine PAMOATE 50 MG CAPSULE (FP) PO PRN (15:52)
[2018-01-30] MEDS: HYDROCHLOROTHIAZIDE 12.5 MG CAPSULE (FP) PO SCH (15:52)
[2018-01-30] MEDS: cloNIDine HCL 0.1 MG TABLET PO SCH (22:11)
[2018-01-30] MEDS: THIAMINE HCL 100 MG TABLET (FP) PO SCH (22:11)
[2018-01-30] MEDS: HYDROCORTISONE ACETATE 25 MG/SUPP.RECT RC SCH (22:13)
[2018-01-31] MEDS: chlordiazePOXIDE HCL 25 MG CAPSULE PO SCH ×2 (05:47→10:52)
[2018-01-31] MEDS: ARTIFICIAL TEARS (POLYVINYL ALCOHOL) OPTH DROPS OU SCH ×3 (05:49→22:28)
[2018-01-31] MEDS: cloNIDine HCL 0.1 MG TABLET PO SCH ×2 (10:52→22:28)
[2018-01-31] MEDS: hydrOXYzine PAMOATE 50 MG CAPSULE (FP) PO PRN (10:52)
[2018-01-31] MEDS: HYDROCHLOROTHIAZIDE 12.5 MG CAPSULE (FP) PO SCH (10:52)
[2018-01-31] MEDS: HYDROCORTISONE 0.5% TOPICAL CREAM 30 GM TUBE TP SCH (10:52)
[2018-01-31] MEDS: FLUTICASONE PROP 0.05% 16 GM NASAL SPRAY NS SCH ×2 (10:53→22:28)
[2018-01-31] MEDS: PRENATAL VITAMINS W/ FOLIC ACID TABLET (FP) PO SCH (10:54)
[2018-01-31] MEDS: NAPROXEN 500 MG TABLET (FP) PO SCH ×2 (10:54→22:28)
--- NOTE | 2018-01-31 12:10 | PN ---
S CIWA - CIWA Score Nausea/Vomitin-Mild Nausea/No Vomiting Muscle Tremors: 3 Anxiety: 3 Agitation: 2 Paroxysmal Sweats: 1-Minimal Palms Moist Orientation: 0-Oriented Tacttile Disturbances: 0-None Auditory Disturbances: 0-None Visual Disturbances: 0-None Headache: 0-None Present CIWA-Ar Total Score: 10 BHS Progress Note (SOAP) Subjective: sweat tremor anxiety restlessness Objective: 01/31/18 12:13 Vital Signs Temperature 97.9 F 01/31/18 09:01 Pulse Rate 105 H 01/31/18 09:01 Respiratory Rate 18 01/31/18 09:01 Blood Pressure 132/76 01/31/18 09:01 O2 Sat by Pulse Oximetry (%) Laboratory Last Values WBC 9.3 K/mm3 (4.0-10.0) 01/30/18 07:30 RBC 4.21 M/mm3 (4.00-5.60) 01/30/18 07:30 Hgb 13.1 GM/dL (11.7-16.9) 01/30/18 07:30 Hct 38.7 % (35.4-49) 01/30/18 07:30 MCV 92.0 fl (80-96) 01/30/18 07:30 MCH 31.0 pg (25.7-33.7) 01/30/18 07:30 MCHC 33.7 g/dl (32.0-35.9) 01/30/18 07:30 RDW 14.8 % (11.9-15.9) 01/30/18 07:30 Plt Count 157 K/MM3 (134-434) 01/30/18 07:30 MPV 8.5 fl (7.5-11.1) 01/30/18 07:30 Sodium 138 mmol/L (136-145) 01/30/18 07:30 Potassium 4.1 mmol/L (3.5-5.1) 01/30/18 07:30 Chloride 101 mmol/L (98-107) 01/30/18 07:30 Carbon Dioxide 23 mmol/L (21-32) 01/30/18 07:30 Anion Gap 14 MMOL/L (8-16) 01/30/18 07:30 BUN 19 mg/dL (7-18) H 01/30/18 07:30 Creatinine 1.2 mg/dL (0.55-1.3) 01/30/18 07:30 Creat Clearance w eGFR > 60 (>60) 01/30/18 07:30 Random Glucose 96 mg/dL (74-106) 01/30/18 07:30 Calcium 8.9 mg/dL (8.5-10.1) 01/30/18 07:30 Total Bilirubin 1.1 mg/dL (0.2-1) H 01/30/18 07:30 AST 46 U/L (15-37) H 01/30/18 07:30 ALT 47 U/L (13-61) 01/30/18 07:30 Alkaline Phosphatase 63 U/L (45-117) 01/30/18 07:30 Total Protein 7.5 g/dl (6.4-8.2) 01/30/18 07:30 Albumin 4.0 g/dl (3.4-5.0) 01/30/18 07:30 Urine Color Ltyellow 01/29/18 19:46 Urine Appearance Clear 01/29/18 19:46 Urine pH 5.0 (5.0-8.0) 01/29/18 19:46 Ur Specific [place] 1.008 (1.001-1.035) 01/29/18 19:46 Urine Protein Negative (NEGATIVE) 01/29/18 19:46 Urine Glucose (UA) Negative (NEGATIVE) 01/29/18 19:46 Urine Ketones Negative (NEGATIVE) 01/29/18 19:46 Urine Blood Negative (NEGATIVE) 01/29/18 19:46 Urine Nitrite Negative (NEGATIVE) 01/29/18 19:46 Urine Bilirubin Negative (<2.0 mg/dL) 01/29/18 19:46 Urine Urobilinogen Negative mg/dL (0.2-1.0) 01/29/18 19:46 Ur Leukocyte Esterase Negative (NEGATIVE) 01/29/18 19:46 RPR Titer Nonreactive (NONREACTIVE) 01/30/18 07:30 lab noted Assessment: 01/31/18 12:14 withdrawal sx Plan: continue detox
[2018-01-31] MEDS: LOPERAMIDE HCL 2 MG CAPSULE PO PRN ×2 (14:30→22:35)
[2018-01-31] MEDS: chlordiazePOXIDE 5 MG CAPSULE PO SCH ×2 (17:07→22:28)
[2018-01-31] MEDS: ACETAMINOPHEN 325 MG TABLET (FP) PO PRN (17:08)
[2018-01-31] MEDS: HYDROCORTISONE ACETATE 25 MG/SUPP.RECT RC SCH (22:28)
[2018-01-31] MEDS: THIAMINE HCL 100 MG TABLET (FP) PO SCH (22:28)
[2018-02-01] MEDS: chlordiazePOXIDE 5 MG CAPSULE PO SCH ×2 (05:17→10:37)
[2018-02-01] MEDS: ARTIFICIAL TEARS (POLYVINYL ALCOHOL) OPTH DROPS OU SCH ×3 (05:19→23:17)
--- NOTE | 2018-02-01 10:09 | PN ---
BHS Progress Note (SOAP) Subjective: feeling better sweat but no tremor constipated x 1 days that the patient had diarrhea received "around the clock" immodium "having" go to the bathroom for one day compared with daily routine BM denies gi pain no vomiting BS x 4 Objective: 02/01/18 10:12 Vital Signs Temperature 96.4 F L 02/01/18 09:13 Pulse Rate 101 H 02/01/18 09:13 Respiratory Rate 19 02/01/18 09:13 Blood Pressure 152/79 02/01/18 09:13 O2 Sat by Pulse Oximetry (%) Laboratory Last Values WBC 9.3 K/mm3 (4.0-10.0) 01/30/18 07:30 RBC 4.21 M/mm3 (4.00-5.60) 01/30/18 07:30 Hgb 13.1 GM/dL (11.7-16.9) 01/30/18 07:30 Hct 38.7 % (35.4-49) 01/30/18 07:30 MCV 92.0 fl (80-96) 01/30/18 07:30 MCH 31.0 pg (25.7-33.7) 01/30/18 07:30 MCHC 33.7 g/dl (32.0-35.9) 01/30/18 07:30 RDW 14.8 % (11.9-15.9) 01/30/18 07:30 Plt Count 157 K/MM3 (134-434) 01/30/18 07:30 MPV 8.5 fl (7.5-11.1) 01/30/18 07:30 Sodium 138 mmol/L (136-145) 01/30/18 07:30 Potassium 4.1 mmol/L (3.5-5.1) 01/30/18 07:30 Chloride 101 mmol/L (98-107) 01/30/18 07:30 Carbon Dioxide 23 mmol/L (21-32) 01/30/18 07:30 Anion Gap 14 MMOL/L (8-16) 01/30/18 07:30 BUN 19 mg/dL (7-18) H 01/30/18 07:30 Creatinine 1.2 mg/dL (0.55-1.3) 01/30/18 07:30 Creat Clearance w eGFR > 60 (>60) 01/30/18 07:30 Random Glucose 96 mg/dL (74-106) 01/30/18 07:30 Calcium 8.9 mg/dL (8.5-10.1) 01/30/18 07:30 Total Bilirubin 1.1 mg/dL (0.2-1) H 01/30/18 07:30 AST 46 U/L (15-37) H 01/30/18 07:30 ALT 47 U/L (13-61) 01/30/18 07:30 Alkaline Phosphatase 63 U/L (45-117) 01/30/18 07:30 Total Protein 7.5 g/dl (6.4-8.2) 01/30/18 07:30 Albumin 4.0 g/dl (3.4-5.0) 01/30/18 07:30 Urine Color Ltyellow 01/29/18 19:46 Urine Appearance Clear 01/29/18 19:46 Urine pH 5.0 (5.0-8.0) 01/29/18 19:46 Ur Specific [place] 1.008 (1.001-1.035) 01/29/18 19:46 Urine Protein Negative (NEGATIVE) 01/29/18 19:46 Urine Glucose (UA) Negative (NEGATIVE) 01/29/18 19:46 Urine Ketones Negative (NEGATIVE) 01/29/18 19:46 Urine Blood Negative (NEGATIVE) 01/29/18 19:46 Urine Nitrite Negative (NEGATIVE) 01/29/18 19:46 Urine Bilirubin Negative (<2.0 mg/dL) 01/29/18 19:46 Urine Urobilinogen Negative mg/dL (0.2-1.0) 01/29/18 19:46 Ur Leukocyte Esterase Negative (NEGATIVE) 01/29/18 19:46 RPR Titer Nonreactive (NONREACTIVE) 01/30/18 07:30 lab noted encourage weight loss and bp monitoring follow up with primary care provider 02/01/18 10:15 Assessment: 02/01/18 10:15 mild withdrawal sx Plan: medically supervised detox fiber short term muscle relaxant for chronic back pain increase oral fluid
[2018-02-01] MEDS: cloNIDine HCL 0.1 MG TABLET PO SCH ×2 (10:37→23:17)
[2018-02-01] MEDS: HYDROCHLOROTHIAZIDE 12.5 MG CAPSULE (FP) PO SCH (10:37)
[2018-02-01] MEDS: PRENATAL VITAMINS W/ FOLIC ACID TABLET (FP) PO SCH (10:37)
[2018-02-01] MEDS: HYDROCORTISONE 0.5% TOPICAL CREAM 30 GM TUBE TP SCH (10:37)
[2018-02-01] MEDS: NAPROXEN 500 MG TABLET (FP) PO SCH ×2 (10:37→23:18)
[2018-02-01] MEDS: FLUTICASONE PROP 0.05% 16 GM NASAL SPRAY NS SCH ×2 (10:37→23:17)
[2018-02-01] MEDS: BACLOFEN 10 MG TABLET (FP) PO SCH ×2 (10:38→23:17)
[2018-02-01] MEDS: MAG HYDROX/AL HYDROX/SIMETH 30 ML UNIT-DOSE CUP PO PRN (11:37)
[2018-02-01] MEDS: PSYLLIUM 5.85 GM PACKET PO SCH (14:16)
[2018-02-01] MEDS: chlordiazePOXIDE HCL 10 MG CAPSULE PO SCH ×2 (17:16→23:20)
[2018-02-01] MEDS: HYDROCORTISONE ACETATE 25 MG/SUPP.RECT RC SCH (23:17)
[2018-02-01] MEDS: THIAMINE HCL 100 MG TABLET (FP) PO SCH (23:18)
[2018-02-02] MEDS: chlordiazePOXIDE HCL 10 MG CAPSULE PO SCH ×2 (05:58→11:06)
[2018-02-02] MEDS: ARTIFICIAL TEARS (POLYVINYL ALCOHOL) OPTH DROPS OU SCH ×2 (05:59→13:29)
--- NOTE | 2018-02-02 10:10 | DS ---
[facility] Detox Discharge Summary Admission Date: 01/29/18 Discharge Date: 02/02/18 - History Present History: Alcohol Dependence - Physical Exam Results Vital Signs: Vital Signs Temperature 97.0 F L 02/02/18 09:48 Pulse Rate 105 H 02/02/18 09:48 Respiratory Rate 18 02/02/18 09:48 Blood Pressure 142/86 02/02/18 09:48 O2 Sat by Pulse Oximetry (%) Pertinent Admission Physical Exam Findings: PATIENT COMPLETED DETOX TODAY. TOLERATED WELL. MEDICALLY STABLE. NO SI/HI REPORTED TO STAFF. PATIENT ENCOURAGED TO FOLLOW UP WITH GROUP MEETINGS TO PREVENT RELAPSE. D/C INSTRUCTIONS PROVIDED BY STAFF. - Treatment Hospital Course: Detox Protocol Followed, Detoxed Safely, Responded well, Discharged Condition Good - Medication Discharge Medications: Ambulatory Orders Fluticasone Prop 0.05% Nasal [Flonase -] 1 spray NS BID #1 spray 10/31/17 Hydrocortisone Acetate [Anusol Hc Suppository -] 25 mg RC HS #5 supp.rect Polyvinyl Alcohol [Artificial Tears] 1 drop OP TID #1 drops 10/31/17 Sodium Chloride Nasal [place] [[place] Nasal [place] -] 2 spray NS Q6H PRN #1 spray 10/31/17 Naproxen [Naprosyn -] 500 mg PO PRN 12/24/17 Hydrocortisone 0.5% Cream [Hytone 0.5% Cream -] 1 applic TP DAILY 01/29/18 Hydrochlorothiazide [Hctz -] 12.5 mg PO DAILY #30 cap 02/01/18 - Diagnosis (1) Alcohol dependence with uncomplicated withdrawal Current Visit: Yes Status: Resolved - AMA Did Patient Leave Against Medical Advice: No
[2018-02-02] MEDS: cloNIDine HCL 0.1 MG TABLET PO SCH (10:41)
[2018-02-02] MEDS: HYDROCHLOROTHIAZIDE 12.5 MG CAPSULE (FP) PO SCH (10:41)
[2018-02-02] MEDS: BACLOFEN 10 MG TABLET (FP) PO SCH (10:41)
[2018-02-02] MEDS: NAPROXEN 500 MG TABLET (FP) PO SCH (10:41)
[2018-02-02] MEDS: FLUTICASONE PROP 0.05% 16 GM NASAL SPRAY NS SCH (10:42)
[2018-02-02] MEDS: HYDROCORTISONE 0.5% TOPICAL CREAM 30 GM TUBE TP SCH (10:42)
[2018-02-02] MEDS: PRENATAL VITAMINS W/ FOLIC ACID TABLET (FP) PO SCH (10:42)
[2018-02-02] MEDS: PSYLLIUM 5.85 GM PACKET PO SCH (13:29)
[2018-02-02] MEDS: MAG HYDROX/AL HYDROX/SIMETH 30 ML UNIT-DOSE CUP PO PRN (13:43)
[2018-02-02] MEDS: ACETAMINOPHEN 325 MG TABLET (FP) PO PRN (15:08)
[2018-02-02 17:35] VITALS: BP 135/96; PULSE 99; TEMP 97.5
== END 2018-02-02 17:21 | disposition other institution (70) | DRG 774 ==
LOC: YASAS 13:47 → Y6N 16:05
PROC: HZ2ZZZZ Detoxification Services for Substance Abuse Treatment (ICD-10-PCS; principal; 2018-01-29)
DX: F10.230 Alcohol dependence with withdrawal, uncomplicated (principal); F10.220 Alcohol dependence with intoxication, uncomplicated; F14.20 Cocaine dependence, uncomplicated; F12.20 Cannabis dependence, uncomplicated; F17.210 Nicotine dependence, cigarettes, uncomplicated; F19.282 Other psychoactive substance dependence with psychoactive substance-induced sleep disorder; K21.9 Gastro-esophageal reflux disease without esophagitis; I10 Essential (primary) hypertension; M54.6 Pain in thoracic spine; G89.29 Other chronic pain; R00.0 Tachycardia, unspecified; H04.129 Dry eye syndrome of unspecified lacrimal gland; R73.9 Hyperglycemia, unspecified; G47.00 Insomnia, unspecified; R79.89 Other specified abnormal findings of blood chemistry; R01.1 Cardiac murmur, unspecified; R76.11 Nonspecific reaction to tuberculin skin test without active tuberculosis; J32.2 Chronic ethmoidal sinusitis; M13.859 Other specified arthritis, unspecified hip; Z87.438 Personal history of other diseases of male genital organs; Z88.0 Allergy status to penicillin; Z88.8 Allergy status to other drugs, medicaments and biological substances
CPT/HCPCS: 36415; 80053; 81003; 85027; 86593; 93005; 93010; J0475; J0735

== ENCOUNTER 2018-02-02 17:57 | Inpatient (IN) | payer OTHER ==
[2018-02-02] MEDS ORDERED: guaiFENesin/D-METHORPHAN HB 10 ML UNIT-DOSE CUPS PO PRN (19:01)
[2018-02-02] MEDS ORDERED: hydrOXYzine PAMOATE 50 MG CAPSULE (FP) PO PRN (19:01)
[2018-02-02] MEDS ORDERED: MAGNESIUM CITRATE 300 ML BOTTLE PO PRN (19:01)
[2018-02-02] MEDS ORDERED: LOPERAMIDE HCL 2 MG CAPSULE PO PRN (19:01)
[2018-02-02] MEDS ORDERED: P-EPHED 60MG/TRIPROLIDI 2.5MG TABLET PO PRN (19:01)
[2018-02-02] MEDS ORDERED: IBUPROFEN 400 MG TABLET (FP) PO PRN (19:01)
--- NOTE | 2018-02-02 19:01 | HP ---
[facility] Re[facility] Assess/Revision - Admission History Admitted to Rehab from: [facility] [place] Date of Admission to Rehab: 02/02/2018 - Findings Detox History & Physical reviewed: Yes Concur with findings: Yes Comments/Additional Findings: Completed detox protocol Inpatient Rehab Admission - Initial Determination Are CD services needed?: Yes Free of communicable disease: Yes Not in need of hospitalization: Yes - Rehab Admission Criteria Previous failed treatment: Yes Poor recovery environment: Yes Comorbidities: Yes Lacks judgement: No Patient is meeting Inpatient Rehab admission criteria:: Yes
[2018-02-02] MEDS ORDERED: NAPROXEN 500 MG TABLET (FP) PO SCH (19:15)
[2018-02-02] MEDS: HYDROCORTISONE ACETATE 25 MG/SUPP.RECT RC SCH (21:43)
[2018-02-02] MEDS: THIAMINE HCL 100 MG TABLET (FP) PO SCH (21:43)
[2018-02-02] MEDS: FLUTICASONE PROP 0.05% 16 GM NASAL SPRAY NS SCH (21:44)
[2018-02-02] MEDS: ARTIFICIAL TEARS (POLYVINYL ALCOHOL) OPTH DROPS OU SCH (21:44)
[2018-02-02] MEDS ORDERED: MELATONIN 5 MG TABLETS PO PRN (22:00)
[2018-02-02] MEDS ORDERED: PT OWN MED DRAWER 7, Y5N ONE (23:22)
[2018-02-03] MEDS: ARTIFICIAL TEARS (POLYVINYL ALCOHOL) OPTH DROPS OU SCH ×3 (06:09→22:06)
[2018-02-03] MEDS: MENTHOL/PHENOL 1 EACH UD MM PRN (06:10)
[2018-02-03] MEDS: FLUTICASONE PROP 0.05% 16 GM NASAL SPRAY NS SCH ×2 (09:27→22:06)
[2018-02-03] MEDS: PRENATAL VITAMINS W/ FOLIC ACID TABLET (FP) PO SCH (09:27)
[2018-02-03] MEDS: HYDROCHLOROTHIAZIDE 12.5 MG CAPSULE (FP) PO SCH (09:27)
[2018-02-03] MEDS: ACETAMINOPHEN 325 MG TABLET (FP) PO PRN (09:29)
[2018-02-03] MEDS: MAG HYDROX/AL HYDROX/SIMETH 30 ML UNIT-DOSE CUP PO PRN (10:16)
--- NOTE | 2018-02-03 11:31 | PN ---
BHS Progress Note Note: Naproxen 500mg BID ordered for pt's chronic back pain, states he prefers it to Motrin
[2018-02-03] MEDS: NAPROXEN 500 MG TABLET (FP) PO SCH ×2 (13:48→22:06)
[2018-02-03] MEDS: THIAMINE HCL 100 MG TABLET (FP) PO SCH (22:06)
[2018-02-03] MEDS: HYDROCORTISONE ACETATE 25 MG/SUPP.RECT RC SCH (22:07)
[2018-02-04] MEDS: ACETAMINOPHEN 325 MG TABLET (FP) PO PRN ×2 (06:15→16:36)
[2018-02-04] MEDS: ARTIFICIAL TEARS (POLYVINYL ALCOHOL) OPTH DROPS OU SCH ×3 (06:17→21:43)
[2018-02-04] MEDS: HYDROCHLOROTHIAZIDE 12.5 MG CAPSULE (FP) PO SCH (09:55)
[2018-02-04] MEDS: PRENATAL VITAMINS W/ FOLIC ACID TABLET (FP) PO SCH (09:55)
[2018-02-04] MEDS: FLUTICASONE PROP 0.05% 16 GM NASAL SPRAY NS SCH ×2 (09:55→21:43)
[2018-02-04] MEDS: NAPROXEN 500 MG TABLET (FP) PO SCH ×2 (09:55→21:43)
[2018-02-04] MEDS: MAG HYDROX/AL HYDROX/SIMETH 30 ML UNIT-DOSE CUP PO PRN ×2 (13:38→21:44)
[2018-02-04] MEDS: HYDROCORTISONE ACETATE 25 MG/SUPP.RECT RC SCH (21:42)
[2018-02-04] MEDS: THIAMINE HCL 100 MG TABLET (FP) PO SCH (21:43)
[2018-02-05] MEDS: ARTIFICIAL TEARS (POLYVINYL ALCOHOL) OPTH DROPS OU SCH ×3 (05:34→21:47)
[2018-02-05] MEDS: ACETAMINOPHEN 325 MG TABLET (FP) PO PRN (06:08)
--- NOTE | 2018-02-05 06:43 | HP ---
Psychiatrist Admission - Data Date of interview: 02/05/18 Admission source: 6N Identifying data: This is the third [facility] admission for this 62 years old single Black male, unemployed with no source of income, homeless Medical History: Significant for hypertension, GERD and a history of treatment for gonorrhea. Smokes 10 cigarettes daily Psychiatric History: Denies history of previous psychiatric treatment Physical/Sexual Abuse/Trauma History: Patient denies history of sexual, physical and verbal abuse. Additional Comment: Reports history of approximately of 3-7 previous misdemeanor arrests. Denies being on probation Vital Signs: Vital Signs - 24 hr 02/04/18 06:58 Temperature 97.8 F Pulse Rate 93 H Respiratory 18 Rate Blood Pressure 160/85 Allergies/Adverse Reactions: Allergies Allergy/AdvReac Type Severity Reaction Status Date / Time Penicillins Allergy Severe Difficulty Verified 01/29/18 15:29 Breathing tomato [Tomato] Allergy Mild Itching Verified 01/29/18 15:29 tuberculin, purified protein Allergy Rash Verified 01/29/18 15:29 deriva [Tuberculin,Purif.Prot.Deriv.] Date of last physical exam: 01/29/18 Concur with the findings of this exam: Yes - Substance Abuse/Tx History Hx Alcohol Use: Yes Hx Substance Use: Yes Substance Use Type: Alcohol (Started drinking alcohol at age 19, consumes 2 pints of vodka & 2 cans of beer daily. Last drank on 01/29/18), Cocaine (Started using cocaine at age 26, consumes $300 worth 1-2 times weekly. Last used on 01/15) Hx Substance Use Treatment: Yes (15 previous inpt detox & 2 inpt rehab admissions @ [facility]) Mental Status Exam - Mental Status Exam Alert and Oriented to: Time, Place, Person Cognitive Function: Fair Patient Appearance: Well Groomed Mood: Irritable Affect: Appropriate Patient Behavior: Cooperative Speech Pattern: Clear Voice Loudness: Normal Thought Process: Intact, Goal Oriented Hallucinations: Denies Suicidal Ideation: Denies Homicidal Ideation: Denies Insight/Judgement: Fair Sleep: Poorly Appetite: Good Muscle strength/Tone: Normal Gait/Station: Normal Psychiatric Findings - Problem List ([place] 1, 2,3) (1) Alcohol dependence Current Visit: Yes Status: Acute (2) Cocaine dependence Current Visit: No Status: Acute Qualifiers: Substance use status: uncomplicated Qualified Code(s): F14.20 - Cocaine dependence, uncomplicated (3) Nicotine dependence Current Visit: No Status: Chronic (4) Substance induced mood disorder Current Visit: Yes Status: Acute (5) Substance-induced sleep disorder Current Visit: Yes Status: Acute (6) Hypertension Current Visit: No Status: Chronic Qualifiers: Hypertension type: essential hypertension Qualified Code(s): I10 - Essential (primary) hypertension (7) GERD (gastroesophageal reflux disease) Current Visit: No Status: Chronic Qualifiers: Esophagitis presence: without esophagitis Qualified Code(s): K21.9 - Gastro -esophageal reflux disease without esophagitis - Initial Treatment Plan Initial Treatment Plan: Monitor progress
[2018-02-05] MEDS: NAPROXEN 500 MG TABLET (FP) PO SCH ×2 (09:40→21:46)
[2018-02-05] MEDS: PRENATAL VITAMINS W/ FOLIC ACID TABLET (FP) PO SCH (09:40)
[2018-02-05] MEDS: HYDROCHLOROTHIAZIDE 12.5 MG CAPSULE (FP) PO SCH (09:42)
[2018-02-05] MEDS: FLUTICASONE PROP 0.05% 16 GM NASAL SPRAY NS SCH ×2 (09:44→21:44)
[2018-02-05] MEDS: HYDROCORTISONE 0.5% TOPICAL CREAM 30 GM TUBE TP PRN ×2 (09:44→21:44)
--- NOTE | 2018-02-05 13:01 | PN ---
BHS Progress Note (SOAP) Subjective: C/o indigestion after eating w/ heaviness in stomach. Was taking prilosec but not currently on. Has been taking mylanta after meals to settle stomach. Denies nausea or vomiting. Last BM today but very firm and hard. Had been taking colace in the past. Abd hernias over a few years which is reducible. Objective: 02/05/18 13:00 Large double abdominal hernia w/o tenderness. Bowel sounds wnl. Denies abd tenderness w/ palpation. Assessment: Abd hernia. Gastric reflux. 02/05/18 13:02 Plan: Continue rehab. Protonix 20 mg PO Daily Colace TID 1 pitcher water daily F/u w your PCP upon discharge: Hernia, Acid reflux,
[2018-02-05] MEDS: HYDROCORTISONE ACETATE 25 MG/SUPP.RECT RC SCH (21:45)
[2018-02-05] MEDS: PANTOPRAZOLE 20 MG TABLET (FP) PO SCH (21:46)
[2018-02-05] MEDS: THIAMINE HCL 100 MG TABLET (FP) PO SCH (21:46)
[2018-02-06] MEDS: ACETAMINOPHEN 325 MG TABLET (FP) PO PRN (06:20)
[2018-02-06] MEDS: ARTIFICIAL TEARS (POLYVINYL ALCOHOL) OPTH DROPS OU SCH ×3 (06:21→22:13)
[2018-02-06] MEDS: NAPROXEN 500 MG TABLET (FP) PO SCH ×2 (10:39→22:13)
[2018-02-06] MEDS: PRENATAL VITAMINS W/ FOLIC ACID TABLET (FP) PO SCH (10:39)
[2018-02-06] MEDS: PANTOPRAZOLE 20 MG TABLET (FP) PO SCH (10:39)
[2018-02-06] MEDS: HYDROCHLOROTHIAZIDE 12.5 MG CAPSULE (FP) PO SCH (10:39)
[2018-02-06] MEDS: FLUTICASONE PROP 0.05% 16 GM NASAL SPRAY NS SCH ×2 (10:40→22:13)
[2018-02-06] MEDS: HYDROCORTISONE ACETATE 25 MG/SUPP.RECT RC SCH (22:13)
[2018-02-06] MEDS: THIAMINE HCL 100 MG TABLET (FP) PO SCH (22:13)
[2018-02-07] MEDS: ACETAMINOPHEN 325 MG TABLET (FP) PO PRN ×2 (06:14→14:58)
[2018-02-07] MEDS: ARTIFICIAL TEARS (POLYVINYL ALCOHOL) OPTH DROPS OU SCH ×3 (06:15→22:04)
[2018-02-07] MEDS: PANTOPRAZOLE 20 MG TABLET (FP) PO SCH (06:39)
[2018-02-07] MEDS: NAPROXEN 500 MG TABLET (FP) PO SCH ×2 (09:48→22:02)
[2018-02-07] MEDS: HYDROCHLOROTHIAZIDE 12.5 MG CAPSULE (FP) PO SCH (09:48)
[2018-02-07] MEDS: PRENATAL VITAMINS W/ FOLIC ACID TABLET (FP) PO SCH (09:48)
[2018-02-07] MEDS: FLUTICASONE PROP 0.05% 16 GM NASAL SPRAY NS SCH ×2 (09:49→22:03)
[2018-02-07] MEDS: HYDROCORTISONE 0.5% TOPICAL CREAM 30 GM TUBE TP PRN (09:49)
[2018-02-07] MEDS: DOCUSATE SODIUM 100 MG CAPSULE (FP) PO PRN (09:50)
[2018-02-07] MEDS ORDERED: PT OWN MED DRAWER 7, Y5N ONE ×3 (14:21→19:06)
[2018-02-07] MEDS: MAG HYDROX/AL HYDROX/SIMETH 30 ML UNIT-DOSE CUP PO PRN (14:58)
[2018-02-07] MEDS: THIAMINE HCL 100 MG TABLET (FP) PO SCH (22:02)
[2018-02-07] MEDS: HYDROCORTISONE ACETATE 25 MG/SUPP.RECT RC SCH (22:04)
[2018-02-08] MEDS: PANTOPRAZOLE 20 MG TABLET (FP) PO SCH (06:40)
[2018-02-08] MEDS: ACETAMINOPHEN 325 MG TABLET (FP) PO PRN (06:41)
[2018-02-08] MEDS: ARTIFICIAL TEARS (POLYVINYL ALCOHOL) OPTH DROPS OU SCH ×3 (06:42→21:23)
[2018-02-08] MEDS: HYDROCHLOROTHIAZIDE 12.5 MG CAPSULE (FP) PO SCH (09:32)
[2018-02-08] MEDS: PRENATAL VITAMINS W/ FOLIC ACID TABLET (FP) PO SCH (09:32)
[2018-02-08] MEDS: NAPROXEN 500 MG TABLET (FP) PO SCH ×2 (09:32→21:23)
[2018-02-08] MEDS: FLUTICASONE PROP 0.05% 16 GM NASAL SPRAY NS SCH ×2 (09:32→21:24)
[2018-02-08] MEDS: HYDROCORTISONE 0.5% TOPICAL CREAM 30 GM TUBE TP PRN (09:32)
[2018-02-08] MEDS: DOCUSATE SODIUM 100 MG CAPSULE (FP) PO PRN (09:33)
[2018-02-08] MEDS: THIAMINE HCL 100 MG TABLET (FP) PO SCH (21:22)
[2018-02-08] MEDS: HYDROCORTISONE ACETATE 25 MG/SUPP.RECT RC SCH (21:23)
[2018-02-09] MEDS: ARTIFICIAL TEARS (POLYVINYL ALCOHOL) OPTH DROPS OU SCH ×3 (06:37→22:13)
[2018-02-09] MEDS: PANTOPRAZOLE 20 MG TABLET (FP) PO SCH (06:38)
[2018-02-09] MEDS: NAPROXEN 500 MG TABLET (FP) PO SCH ×2 (09:34→22:12)
[2018-02-09] MEDS: PRENATAL VITAMINS W/ FOLIC ACID TABLET (FP) PO SCH (09:34)
[2018-02-09] MEDS: HYDROCHLOROTHIAZIDE 12.5 MG CAPSULE (FP) PO SCH (09:34)
[2018-02-09] MEDS: FLUTICASONE PROP 0.05% 16 GM NASAL SPRAY NS SCH ×2 (09:37→22:16)
[2018-02-09] MEDS ORDERED: PT OWN MED DRAWER 7, Y5N ONE ×3 (09:38→22:17)
[2018-02-09] MEDS: HYDROCORTISONE 0.5% TOPICAL CREAM 30 GM TUBE TP PRN ×2 (10:08→22:13)
[2018-02-09] MEDS: DOCUSATE SODIUM 100 MG CAPSULE (FP) PO PRN ×2 (10:09→22:12)
[2018-02-09] MEDS: MAG HYDROX/AL HYDROX/SIMETH 30 ML UNIT-DOSE CUP PO PRN ×2 (13:53→22:14)
[2018-02-09] MEDS ORDERED: HYDROCHLOROTHIAZIDE 12.5 MG CAPSULE (FP) PO SCH ×2 (14:57→15:13)
[2018-02-09] MEDS: HYDROCORTISONE ACETATE 25 MG/SUPP.RECT RC SCH (22:12)
[2018-02-09] MEDS: THIAMINE HCL 100 MG TABLET (FP) PO SCH (22:12)
[2018-02-09] MEDS: CYCLOBENZAPRINE HCL 10 MG TABLET (FP) PO PRN (22:12)
[2018-02-10] MEDS ORDERED: PT OWN MED DRAWER 7, Y5N ONE (02:50)
[2018-02-10] MEDS: ARTIFICIAL TEARS (POLYVINYL ALCOHOL) OPTH DROPS OU SCH ×3 (06:03→23:07)
[2018-02-10] MEDS: PANTOPRAZOLE 20 MG TABLET (FP) PO SCH (07:02)
[2018-02-10] MEDS: NAPROXEN 500 MG TABLET (FP) PO SCH ×2 (09:40→22:07)
[2018-02-10] MEDS: FLUTICASONE PROP 0.05% 16 GM NASAL SPRAY NS SCH ×2 (09:40→22:08)
[2018-02-10] MEDS: PRENATAL VITAMINS W/ FOLIC ACID TABLET (FP) PO SCH (09:40)
[2018-02-10] MEDS: DOCUSATE SODIUM 100 MG CAPSULE (FP) PO PRN ×2 (09:40→22:07)
[2018-02-10] MEDS: CYCLOBENZAPRINE HCL 10 MG TABLET (FP) PO PRN ×2 (09:40→22:07)
[2018-02-10] MEDS: HYDROCHLOROTHIAZIDE 25 MG TABLET (FP) PO SCH (09:42)
[2018-02-10] MEDS: ACETAMINOPHEN 325 MG TABLET (FP) PO PRN (16:43)
[2018-02-10] MEDS: HYDROCORTISONE ACETATE 25 MG/SUPP.RECT RC SCH (22:07)
[2018-02-10] MEDS: THIAMINE HCL 100 MG TABLET (FP) PO SCH (22:07)
[2018-02-11] MEDS: ARTIFICIAL TEARS (POLYVINYL ALCOHOL) OPTH DROPS OU SCH ×3 (06:04→21:38)
[2018-02-11] MEDS: PANTOPRAZOLE 20 MG TABLET (FP) PO SCH (07:14)
[2018-02-11] MEDS: NAPROXEN 500 MG TABLET (FP) PO SCH ×2 (09:45→21:35)
[2018-02-11] MEDS: HYDROCHLOROTHIAZIDE 25 MG TABLET (FP) PO SCH (09:45)
[2018-02-11] MEDS: CYCLOBENZAPRINE HCL 10 MG TABLET (FP) PO PRN ×2 (09:45→21:37)
[2018-02-11] MEDS: PRENATAL VITAMINS W/ FOLIC ACID TABLET (FP) PO SCH (09:45)
[2018-02-11] MEDS: FLUTICASONE PROP 0.05% 16 GM NASAL SPRAY NS SCH ×2 (09:47→21:38)
[2018-02-11] MEDS ORDERED: PT OWN MED DRAWER 7, Y5N ONE ×2 (13:47→19:25)
[2018-02-11] MEDS: MAG HYDROX/AL HYDROX/SIMETH 30 ML UNIT-DOSE CUP PO PRN (13:48)
[2018-02-11] MEDS: HYDROCORTISONE 0.5% TOPICAL CREAM 30 GM TUBE TP PRN (13:49)
[2018-02-11] MEDS: THIAMINE HCL 100 MG TABLET (FP) PO SCH (21:35)
[2018-02-11] MEDS: HYDROCORTISONE ACETATE 25 MG/SUPP.RECT RC SCH (21:35)
[2018-02-11] MEDS: DOCUSATE SODIUM 100 MG CAPSULE (FP) PO PRN (21:37)
[2018-02-12] MEDS: ARTIFICIAL TEARS (POLYVINYL ALCOHOL) OPTH DROPS OU SCH ×3 (06:36→21:43)
[2018-02-12] MEDS: PANTOPRAZOLE 20 MG TABLET (FP) PO SCH (06:36)
[2018-02-12] MEDS: NAPROXEN 500 MG TABLET (FP) PO SCH ×2 (09:49→21:42)
[2018-02-12] MEDS: PRENATAL VITAMINS W/ FOLIC ACID TABLET (FP) PO SCH (09:49)
[2018-02-12] MEDS: HYDROCHLOROTHIAZIDE 25 MG TABLET (FP) PO SCH (09:49)
[2018-02-12] MEDS: CYCLOBENZAPRINE HCL 10 MG TABLET (FP) PO PRN (09:50)
[2018-02-12] MEDS: FLUTICASONE PROP 0.05% 16 GM NASAL SPRAY NS SCH ×2 (09:52→21:42)
--- NOTE | 2018-02-12 13:08 | PN ---
BHS Progress Note Note: PT C/O SHOULDER AND BACK PAIN. ON NAPROSYN AND FLEXERIL PRN BUT REPORTS NO RELIEF. ALERT O X 3. NAD. Vital Signs 02/12/18 02/12/18 06:52 09:30 Temperature 97.8 F Pulse Rate 79 105 H Respiratory 18 18 Rate Blood Pressure 157/94 159/90 PLAN:CHANGE FLEXERIL TO XIANG DOSES LIDOCAINE PATCH DIRECTED.
[2018-02-12] MEDS ORDERED: CARBAMIDE PEROXIDE 6.5% OTIC 15 ML BOTTLE AD ONE (14:05)
[2018-02-12] MEDS: LIDOCAINE 5% TOPICAL PATCH TP SCH (15:22)
[2018-02-12] MEDS: CYCLOBENZAPRINE HCL 10 MG TABLET (FP) PO SCH ×2 (15:22→21:42)
[2018-02-12] MEDS: HYDROCORTISONE ACETATE 25 MG/SUPP.RECT RC SCH (21:41)
[2018-02-12] MEDS: THIAMINE HCL 100 MG TABLET (FP) PO SCH (21:42)
[2018-02-12] MEDS: LIDOCAINE PATCH REMOVAL MC SCH (21:43)
[2018-02-12] MEDS: CARBAMIDE PEROXIDE 6.5% OTIC 15 ML BOTTLE AD SCH (21:43)
[2018-02-12] MEDS: DOCUSATE SODIUM 100 MG CAPSULE (FP) PO PRN (21:44)
[2018-02-13] MEDS: CYCLOBENZAPRINE HCL 10 MG TABLET (FP) PO SCH ×3 (06:53→21:58)
[2018-02-13] MEDS: PANTOPRAZOLE 20 MG TABLET (FP) PO SCH (06:53)
[2018-02-13] MEDS: ARTIFICIAL TEARS (POLYVINYL ALCOHOL) OPTH DROPS OU SCH ×3 (06:54→21:58)
[2018-02-13] MEDS: NAPROXEN 500 MG TABLET (FP) PO SCH ×2 (09:59→21:58)
[2018-02-13] MEDS: PRENATAL VITAMINS W/ FOLIC ACID TABLET (FP) PO SCH (09:59)
[2018-02-13] MEDS: HYDROCHLOROTHIAZIDE 25 MG TABLET (FP) PO SCH (09:59)
[2018-02-13] MEDS: LIDOCAINE 5% TOPICAL PATCH TP SCH (09:59)
[2018-02-13] MEDS: FLUTICASONE PROP 0.05% 16 GM NASAL SPRAY NS SCH ×2 (10:00→22:00)
[2018-02-13] MEDS: CARBAMIDE PEROXIDE 6.5% OTIC 15 ML BOTTLE AD SCH ×2 (10:01→22:00)
[2018-02-13] MEDS: DOCUSATE SODIUM 100 MG CAPSULE (FP) PO PRN ×2 (14:25→21:58)
[2018-02-13] MEDS: HYDROCORTISONE 0.5% TOPICAL CREAM 30 GM TUBE TP PRN (14:27)
[2018-02-13] MEDS: HYDROCORTISONE ACETATE 25 MG/SUPP.RECT RC SCH (21:57)
[2018-02-13] MEDS: LIDOCAINE PATCH REMOVAL MC SCH (22:00)
[2018-02-13] MEDS: THIAMINE HCL 100 MG TABLET (FP) PO SCH (22:00)
[2018-02-14] MEDS: ARTIFICIAL TEARS (POLYVINYL ALCOHOL) OPTH DROPS OU SCH ×3 (06:11→21:55)
[2018-02-14] MEDS: CYCLOBENZAPRINE HCL 10 MG TABLET (FP) PO SCH ×3 (06:11→21:54)
[2018-02-14] MEDS: MENTHOL/PHENOL 1 EACH UD MM PRN ×2 (06:12→16:55)
[2018-02-14] MEDS: PANTOPRAZOLE 20 MG TABLET (FP) PO SCH (06:41)
[2018-02-14] MEDS: NAPROXEN 500 MG TABLET (FP) PO SCH ×2 (10:06→21:54)
[2018-02-14] MEDS: HYDROCHLOROTHIAZIDE 25 MG TABLET (FP) PO SCH (10:06)
[2018-02-14] MEDS: PRENATAL VITAMINS W/ FOLIC ACID TABLET (FP) PO SCH (10:06)
[2018-02-14] MEDS: CARBAMIDE PEROXIDE 6.5% OTIC 15 ML BOTTLE AD SCH ×2 (10:07→21:55)
[2018-02-14] MEDS: LIDOCAINE 5% TOPICAL PATCH TP SCH (10:07)
[2018-02-14] MEDS: DOCUSATE SODIUM 100 MG CAPSULE (FP) PO PRN ×2 (10:08→21:57)
[2018-02-14] MEDS: FLUTICASONE PROP 0.05% 16 GM NASAL SPRAY NS SCH ×2 (10:09→21:55)
[2018-02-14] MEDS: HYDROCORTISONE ACETATE 25 MG/SUPP.RECT RC SCH (21:54)
[2018-02-14] MEDS: THIAMINE HCL 100 MG TABLET (FP) PO SCH (21:54)
[2018-02-14] MEDS: LIDOCAINE PATCH REMOVAL MC SCH (21:55)
[2018-02-15] MEDS: ARTIFICIAL TEARS (POLYVINYL ALCOHOL) OPTH DROPS OU SCH ×3 (06:18→22:18)
[2018-02-15] MEDS: CYCLOBENZAPRINE HCL 10 MG TABLET (FP) PO SCH ×3 (06:18→22:03)
[2018-02-15] MEDS: MENTHOL/PHENOL 1 EACH UD MM PRN ×3 (06:19→14:10)
[2018-02-15] MEDS: PANTOPRAZOLE 20 MG TABLET (FP) PO SCH (06:40)
[2018-02-15] MEDS: CARBAMIDE PEROXIDE 6.5% OTIC 15 ML BOTTLE AD SCH ×2 (09:37→22:18)
[2018-02-15] MEDS: PRENATAL VITAMINS W/ FOLIC ACID TABLET (FP) PO SCH (09:38)
[2018-02-15] MEDS: LIDOCAINE 5% TOPICAL PATCH TP SCH (09:38)
[2018-02-15] MEDS: HYDROCHLOROTHIAZIDE 25 MG TABLET (FP) PO SCH (09:38)
[2018-02-15] MEDS: FLUTICASONE PROP 0.05% 16 GM NASAL SPRAY NS SCH ×2 (09:38→22:18)
[2018-02-15] MEDS: NAPROXEN 500 MG TABLET (FP) PO SCH ×2 (09:38→22:03)
[2018-02-15] MEDS: HYDROCORTISONE 0.5% TOPICAL CREAM 30 GM TUBE TP PRN (14:46)
[2018-02-15] MEDS: HYDROCORTISONE ACETATE 25 MG/SUPP.RECT RC SCH (22:03)
[2018-02-15] MEDS: DOCUSATE SODIUM 100 MG CAPSULE (FP) PO PRN (22:03)
[2018-02-15] MEDS: THIAMINE HCL 100 MG TABLET (FP) PO SCH (22:03)
[2018-02-15] MEDS: LIDOCAINE PATCH REMOVAL MC SCH (22:04)
[2018-02-16] MEDS: ARTIFICIAL TEARS (POLYVINYL ALCOHOL) OPTH DROPS OU SCH ×3 (06:09→21:55)
[2018-02-16] MEDS: CYCLOBENZAPRINE HCL 10 MG TABLET (FP) PO SCH ×3 (06:10→21:54)
[2018-02-16] MEDS: PANTOPRAZOLE 20 MG TABLET (FP) PO SCH (06:31)
[2018-02-16] MEDS: LIDOCAINE 5% TOPICAL PATCH TP SCH (09:43)
[2018-02-16] MEDS: NAPROXEN 500 MG TABLET (FP) PO SCH ×2 (09:43→21:54)
[2018-02-16] MEDS: CARBAMIDE PEROXIDE 6.5% OTIC 15 ML BOTTLE AD SCH ×2 (09:43→21:55)
[2018-02-16] MEDS: PRENATAL VITAMINS W/ FOLIC ACID TABLET (FP) PO SCH (09:43)
[2018-02-16] MEDS: FLUTICASONE PROP 0.05% 16 GM NASAL SPRAY NS SCH ×2 (09:43→21:55)
[2018-02-16] MEDS: HYDROCHLOROTHIAZIDE 25 MG TABLET (FP) PO SCH (09:43)
[2018-02-16] MEDS: DOCUSATE SODIUM 100 MG CAPSULE (FP) PO PRN ×2 (09:44→21:54)
[2018-02-16] MEDS: HYDROCORTISONE 0.5% TOPICAL CREAM 30 GM TUBE TP PRN (09:45)
[2018-02-16] MEDS: HYDROCORTISONE ACETATE 25 MG/SUPP.RECT RC SCH (21:54)
[2018-02-16] MEDS: LIDOCAINE PATCH REMOVAL MC SCH (21:54)
[2018-02-16] MEDS: THIAMINE HCL 100 MG TABLET (FP) PO SCH (21:54)
[2018-02-17] MEDS: PANTOPRAZOLE 20 MG TABLET (FP) PO SCH (07:00)
[2018-02-17] MEDS: CYCLOBENZAPRINE HCL 10 MG TABLET (FP) PO SCH ×3 (07:00→21:28)
[2018-02-17] MEDS: ARTIFICIAL TEARS (POLYVINYL ALCOHOL) OPTH DROPS OU SCH ×3 (07:01→21:28)
[2018-02-17] MEDS: NAPROXEN 500 MG TABLET (FP) PO SCH ×2 (09:34→21:28)
[2018-02-17] MEDS: LIDOCAINE 5% TOPICAL PATCH TP SCH (09:34)
[2018-02-17] MEDS: HYDROCHLOROTHIAZIDE 25 MG TABLET (FP) PO SCH (09:34)
[2018-02-17] MEDS: FLUTICASONE PROP 0.05% 16 GM NASAL SPRAY NS SCH ×2 (09:34→21:29)
[2018-02-17] MEDS: PRENATAL VITAMINS W/ FOLIC ACID TABLET (FP) PO SCH (09:34)
[2018-02-17] MEDS: CARBAMIDE PEROXIDE 6.5% OTIC 15 ML BOTTLE AD SCH ×2 (09:35→21:28)
[2018-02-17] MEDS: MENTHOL/PHENOL 1 EACH UD MM PRN ×2 (09:36→14:11)
[2018-02-17] MEDS: HYDROCORTISONE 0.5% TOPICAL CREAM 30 GM TUBE TP PRN (09:38)
[2018-02-17] MEDS: DOCUSATE SODIUM 100 MG CAPSULE (FP) PO PRN ×2 (09:38→21:30)
[2018-02-17] MEDS: THIAMINE HCL 100 MG TABLET (FP) PO SCH (21:29)
[2018-02-17] MEDS: LIDOCAINE PATCH REMOVAL MC SCH (21:29)
[2018-02-17] MEDS: HYDROCORTISONE ACETATE 25 MG/SUPP.RECT RC SCH (21:30)
[2018-02-18] MEDS: ARTIFICIAL TEARS (POLYVINYL ALCOHOL) OPTH DROPS OU SCH ×3 (06:35→22:09)
[2018-02-18] MEDS: CYCLOBENZAPRINE HCL 10 MG TABLET (FP) PO SCH ×3 (06:35→22:09)
[2018-02-18] MEDS: PANTOPRAZOLE 20 MG TABLET (FP) PO SCH (06:35)
[2018-02-18] MEDS: CARBAMIDE PEROXIDE 6.5% OTIC 15 ML BOTTLE AD SCH ×2 (09:31→22:10)
[2018-02-18] MEDS: DOCUSATE SODIUM 100 MG CAPSULE (FP) PO PRN ×2 (09:31→22:11)
[2018-02-18] MEDS: LIDOCAINE 5% TOPICAL PATCH TP SCH (09:31)
[2018-02-18] MEDS: PRENATAL VITAMINS W/ FOLIC ACID TABLET (FP) PO SCH (09:31)
[2018-02-18] MEDS: NAPROXEN 500 MG TABLET (FP) PO SCH ×2 (09:31→22:09)
[2018-02-18] MEDS: HYDROCHLOROTHIAZIDE 25 MG TABLET (FP) PO SCH (09:31)
[2018-02-18] MEDS: FLUTICASONE PROP 0.05% 16 GM NASAL SPRAY NS SCH ×2 (09:31→22:10)
[2018-02-18] MEDS: HYDROCORTISONE 0.5% TOPICAL CREAM 30 GM TUBE TP PRN (09:32)
[2018-02-18] MEDS: MAGNESIUM HYDROX 2400MG/30ML ORAL SUSPENSION 30 ML CUP PO PRN ×2 (13:59→22:12)
[2018-02-18] MEDS: THIAMINE HCL 100 MG TABLET (FP) PO SCH (22:09)
[2018-02-18] MEDS: HYDROCORTISONE ACETATE 25 MG/SUPP.RECT RC SCH (22:09)
[2018-02-18] MEDS: LIDOCAINE PATCH REMOVAL MC SCH (22:10)
[2018-02-19] MEDS: ARTIFICIAL TEARS (POLYVINYL ALCOHOL) OPTH DROPS OU SCH ×3 (05:41→21:43)
[2018-02-19] MEDS: CYCLOBENZAPRINE HCL 10 MG TABLET (FP) PO SCH ×3 (05:41→21:42)
[2018-02-19] MEDS: PANTOPRAZOLE 20 MG TABLET (FP) PO SCH (07:15)
[2018-02-19] MEDS: MAGNESIUM HYDROX 2400MG/30ML ORAL SUSPENSION 30 ML CUP PO PRN (09:47)
[2018-02-19] MEDS: NAPROXEN 500 MG TABLET (FP) PO SCH ×2 (09:47→21:42)
[2018-02-19] MEDS: PRENATAL VITAMINS W/ FOLIC ACID TABLET (FP) PO SCH (09:47)
[2018-02-19] MEDS: HYDROCHLOROTHIAZIDE 25 MG TABLET (FP) PO SCH (09:47)
[2018-02-19] MEDS: DOCUSATE SODIUM 100 MG CAPSULE (FP) PO PRN ×2 (09:47→21:42)
[2018-02-19] MEDS: CARBAMIDE PEROXIDE 6.5% OTIC 15 ML BOTTLE AD SCH ×2 (09:48→21:43)
[2018-02-19] MEDS: FLUTICASONE PROP 0.05% 16 GM NASAL SPRAY NS SCH ×2 (09:48→21:43)
[2018-02-19] MEDS: LIDOCAINE 5% TOPICAL PATCH TP SCH (09:48)
[2018-02-19] MEDS: HYDROCORTISONE 0.5% TOPICAL CREAM 30 GM TUBE TP PRN (09:49)
[2018-02-19] MEDS: MAG HYDROX/AL HYDROX/SIMETH 30 ML UNIT-DOSE CUP PO PRN (15:47)
[2018-02-19] MEDS: HYDROCORTISONE ACETATE 25 MG/SUPP.RECT RC SCH (21:41)
[2018-02-19] MEDS: THIAMINE HCL 100 MG TABLET (FP) PO SCH (21:41)
[2018-02-19] MEDS: LIDOCAINE PATCH REMOVAL MC SCH (21:42)
[2018-02-20] MEDS: CYCLOBENZAPRINE HCL 10 MG TABLET (FP) PO SCH ×3 (06:39→21:57)
[2018-02-20] MEDS: ARTIFICIAL TEARS (POLYVINYL ALCOHOL) OPTH DROPS OU SCH ×3 (06:40→21:58)
[2018-02-20] MEDS: PANTOPRAZOLE 20 MG TABLET (FP) PO SCH (06:40)
[2018-02-20] MEDS: LIDOCAINE 5% TOPICAL PATCH TP SCH (10:08)
[2018-02-20] MEDS: PRENATAL VITAMINS W/ FOLIC ACID TABLET (FP) PO SCH (10:08)
[2018-02-20] MEDS: FLUTICASONE PROP 0.05% 16 GM NASAL SPRAY NS SCH ×2 (10:08→21:58)
[2018-02-20] MEDS: NAPROXEN 500 MG TABLET (FP) PO SCH ×2 (10:08→21:56)
[2018-02-20] MEDS: HYDROCHLOROTHIAZIDE 25 MG TABLET (FP) PO SCH (10:08)
[2018-02-20] MEDS: CARBAMIDE PEROXIDE 6.5% OTIC 15 ML BOTTLE AD SCH ×2 (10:09→21:58)
[2018-02-20] MEDS: HYDROCORTISONE ACETATE 25 MG/SUPP.RECT RC SCH (21:56)
[2018-02-20] MEDS: DOCUSATE SODIUM 100 MG CAPSULE (FP) PO PRN (21:56)
[2018-02-20] MEDS: LIDOCAINE PATCH REMOVAL MC SCH (21:58)
[2018-02-20] MEDS: THIAMINE HCL 100 MG TABLET (FP) PO SCH (21:59)
[2018-02-21] MEDS: CYCLOBENZAPRINE HCL 10 MG TABLET (FP) PO SCH ×3 (05:55→22:21)
[2018-02-21] MEDS: ARTIFICIAL TEARS (POLYVINYL ALCOHOL) OPTH DROPS OU SCH ×3 (05:55→22:22)
[2018-02-21] MEDS: MENTHOL/PHENOL 1 EACH UD MM PRN ×2 (05:57→09:49)
[2018-02-21] MEDS: PANTOPRAZOLE 20 MG TABLET (FP) PO SCH (06:46)
[2018-02-21] MEDS ORDERED: PT OWN MED DRAWER 7, Y5N ONE (08:23)
[2018-02-21] MEDS: FLUTICASONE PROP 0.05% 16 GM NASAL SPRAY NS SCH ×2 (09:47→22:22)
[2018-02-21] MEDS: HYDROCHLOROTHIAZIDE 25 MG TABLET (FP) PO SCH (09:47)
[2018-02-21] MEDS: CARBAMIDE PEROXIDE 6.5% OTIC 15 ML BOTTLE AD SCH ×2 (09:48→22:23)
[2018-02-21] MEDS: PRENATAL VITAMINS W/ FOLIC ACID TABLET (FP) PO SCH (09:48)
[2018-02-21] MEDS: NAPROXEN 500 MG TABLET (FP) PO SCH ×2 (09:48→22:21)
[2018-02-21] MEDS: LIDOCAINE 5% TOPICAL PATCH TP SCH (09:48)
[2018-02-21] MEDS: DOCUSATE SODIUM 100 MG CAPSULE (FP) PO PRN (09:49)
[2018-02-21] MEDS: ACETAMINOPHEN 325 MG TABLET (FP) PO PRN (14:06)
[2018-02-21] MEDS: MAG HYDROX/AL HYDROX/SIMETH 30 ML UNIT-DOSE CUP PO PRN (14:14)
[2018-02-21] MEDS: HYDROCORTISONE 0.5% TOPICAL CREAM 30 GM TUBE TP PRN (22:23)
[2018-02-21] MEDS: LIDOCAINE PATCH REMOVAL MC SCH (22:24)
[2018-02-21] MEDS: THIAMINE HCL 100 MG TABLET (FP) PO SCH (22:24)
[2018-02-21] MEDS: HYDROCORTISONE ACETATE 25 MG/SUPP.RECT RC SCH (22:26)
[2018-02-22] MEDS: ARTIFICIAL TEARS (POLYVINYL ALCOHOL) OPTH DROPS OU SCH ×3 (06:28→22:04)
[2018-02-22] MEDS: CYCLOBENZAPRINE HCL 10 MG TABLET (FP) PO SCH ×3 (06:28→22:04)
[2018-02-22] MEDS: PANTOPRAZOLE 20 MG TABLET (FP) PO SCH (06:33)
[2018-02-22] MEDS ORDERED: SODIUM PHOSPHATE/NA BIPHOS 133 ML ENEMA PR ONE (08:53)
[2018-02-22] MEDS: CARBAMIDE PEROXIDE 6.5% OTIC 15 ML BOTTLE AD SCH ×2 (09:49→22:05)
[2018-02-22] MEDS: HYDROCHLOROTHIAZIDE 25 MG TABLET (FP) PO SCH (09:49)
[2018-02-22] MEDS: LIDOCAINE 5% TOPICAL PATCH TP SCH (09:49)
[2018-02-22] MEDS: FLUTICASONE PROP 0.05% 16 GM NASAL SPRAY NS SCH ×2 (09:49→22:05)
[2018-02-22] MEDS: NAPROXEN 500 MG TABLET (FP) PO SCH ×2 (09:51→22:04)
[2018-02-22] MEDS: PRENATAL VITAMINS W/ FOLIC ACID TABLET (FP) PO SCH (09:51)
[2018-02-22] MEDS: DOCUSATE SODIUM 100 MG CAPSULE (FP) PO PRN ×2 (09:52→22:04)
[2018-02-22] MEDS: MAG HYDROX/AL HYDROX/SIMETH 30 ML UNIT-DOSE CUP PO PRN (15:57)
[2018-02-22] MEDS: ACETAMINOPHEN 325 MG TABLET (FP) PO PRN (15:57)
[2018-02-22] MEDS: HYDROCORTISONE ACETATE 25 MG/SUPP.RECT RC SCH (22:04)
[2018-02-22] MEDS: THIAMINE HCL 100 MG TABLET (FP) PO SCH (22:04)
[2018-02-22] MEDS: LIDOCAINE PATCH REMOVAL MC SCH (22:05)
[2018-02-23] MEDS: CYCLOBENZAPRINE HCL 10 MG TABLET (FP) PO SCH ×3 (06:03→21:47)
[2018-02-23] MEDS: ARTIFICIAL TEARS (POLYVINYL ALCOHOL) OPTH DROPS OU SCH ×3 (06:03→21:58)
[2018-02-23] MEDS: MENTHOL/PHENOL 1 EACH UD MM PRN (07:51)
[2018-02-23] MEDS: PANTOPRAZOLE 20 MG TABLET (FP) PO SCH (07:53)
--- NOTE | 2018-02-23 09:16 | PN ---
BHS Progress Note Note: REPORTS LIDOCAINE PATCH NOT RELIEVING PAIN. WANTS TO GO BACK TO MOTRIN BUT INCREASE DOSE. PT REPORTS CHRONIC SHOULDER PAIN. Vital Signs - 24 hr 02/22/18 02/23/18 02/23/18 09:30 00:30 03:30 Temperature Pulse Rate 122 H Respiratory 18 18 18 Rate Blood Pressure 132/79 02/23/18 06:40 Temperature 98 F Pulse Rate 108 H Respiratory 18 Rate Blood Pressure 121/84 PLAN:INCREASE MOTRIN 600 MG PO Q6H PRN FOLLOW UP WITH PMD/PHYSICAL THERAPY AFTER REHAB
[2018-02-23] MEDS: CARBAMIDE PEROXIDE 6.5% OTIC 15 ML BOTTLE AD SCH ×2 (09:39→21:59)
[2018-02-23] MEDS: LIDOCAINE 5% TOPICAL PATCH TP SCH (09:39)
[2018-02-23] MEDS: HYDROCHLOROTHIAZIDE 25 MG TABLET (FP) PO SCH (09:39)
[2018-02-23] MEDS: FLUTICASONE PROP 0.05% 16 GM NASAL SPRAY NS SCH ×2 (09:39→21:59)
[2018-02-23] MEDS: PRENATAL VITAMINS W/ FOLIC ACID TABLET (FP) PO SCH (09:39)
[2018-02-23] MEDS: IBUPROFEN 600 MG TABLET (FP) PO PRN ×2 (09:40→21:47)
[2018-02-23] MEDS: DOCUSATE SODIUM 100 MG CAPSULE (FP) PO PRN ×2 (09:42→21:47)
[2018-02-23] MEDS: METHYL SALICYLATE/MENTHOL OINT 30 GM TUBE TP SCH ×2 (10:56→21:58)
[2018-02-23] MEDS: HYDROCORTISONE 0.5% TOPICAL CREAM 30 GM TUBE TP PRN ×2 (15:00→21:46)
[2018-02-23] MEDS: THIAMINE HCL 100 MG TABLET (FP) PO SCH (21:47)
[2018-02-23] MEDS: HYDROCORTISONE ACETATE 25 MG/SUPP.RECT RC SCH (21:47)
[2018-02-23] MEDS: LIDOCAINE PATCH REMOVAL MC SCH (21:59)
[2018-02-24] MEDS: ARTIFICIAL TEARS (POLYVINYL ALCOHOL) OPTH DROPS OU SCH ×3 (06:23→21:50)
[2018-02-24] MEDS: CYCLOBENZAPRINE HCL 10 MG TABLET (FP) PO SCH ×3 (06:23→21:51)
[2018-02-24] MEDS: MENTHOL/PHENOL 1 EACH UD MM PRN (06:29)
[2018-02-24] MEDS: PANTOPRAZOLE 20 MG TABLET (FP) PO SCH (06:31)
[2018-02-24] MEDS: PRENATAL VITAMINS W/ FOLIC ACID TABLET (FP) PO SCH (10:24)
[2018-02-24] MEDS: HYDROCHLOROTHIAZIDE 25 MG TABLET (FP) PO SCH (10:24)
[2018-02-24] MEDS: FLUTICASONE PROP 0.05% 16 GM NASAL SPRAY NS SCH ×2 (10:24→21:52)
[2018-02-24] MEDS: LIDOCAINE 5% TOPICAL PATCH TP SCH (10:24)
[2018-02-24] MEDS: CARBAMIDE PEROXIDE 6.5% OTIC 15 ML BOTTLE AD SCH ×2 (10:24→21:51)
[2018-02-24] MEDS: METHYL SALICYLATE/MENTHOL OINT 30 GM TUBE TP SCH ×2 (10:24→21:50)
[2018-02-24] MEDS: DOCUSATE SODIUM 100 MG CAPSULE (FP) PO PRN ×2 (10:25→21:51)
[2018-02-24] MEDS: IBUPROFEN 600 MG TABLET (FP) PO PRN ×2 (10:26→21:51)
[2018-02-24] MEDS: ACETAMINOPHEN 325 MG TABLET (FP) PO PRN (14:34)
[2018-02-24] MEDS: MAG HYDROX/AL HYDROX/SIMETH 30 ML UNIT-DOSE CUP PO PRN (15:39)
[2018-02-24] MEDS: HYDROCORTISONE ACETATE 25 MG/SUPP.RECT RC SCH (21:51)
[2018-02-24] MEDS: LIDOCAINE PATCH REMOVAL MC SCH (21:52)
[2018-02-24] MEDS: THIAMINE HCL 100 MG TABLET (FP) PO SCH (21:53)
[2018-02-25] MEDS: CYCLOBENZAPRINE HCL 10 MG TABLET (FP) PO SCH ×3 (06:35→21:56)
[2018-02-25] MEDS: ARTIFICIAL TEARS (POLYVINYL ALCOHOL) OPTH DROPS OU SCH ×3 (06:35→21:58)
[2018-02-25] MEDS: PANTOPRAZOLE 20 MG TABLET (FP) PO SCH (06:35)
[2018-02-25] MEDS: MENTHOL/PHENOL 1 EACH UD MM PRN (06:37)
[2018-02-25] MEDS: PRENATAL VITAMINS W/ FOLIC ACID TABLET (FP) PO SCH (10:03)
[2018-02-25] MEDS: FLUTICASONE PROP 0.05% 16 GM NASAL SPRAY NS SCH ×2 (10:03→22:00)
[2018-02-25] MEDS: HYDROCHLOROTHIAZIDE 25 MG TABLET (FP) PO SCH (10:03)
[2018-02-25] MEDS: LIDOCAINE 5% TOPICAL PATCH TP SCH (10:04)
[2018-02-25] MEDS: DOCUSATE SODIUM 100 MG CAPSULE (FP) PO PRN ×2 (10:04→21:56)
[2018-02-25] MEDS: METHYL SALICYLATE/MENTHOL OINT 30 GM TUBE TP SCH ×2 (10:32→21:58)
[2018-02-25] MEDS: CARBAMIDE PEROXIDE 6.5% OTIC 15 ML BOTTLE AD SCH ×2 (10:32→22:00)
[2018-02-25] MEDS: ACETAMINOPHEN 325 MG TABLET (FP) PO PRN (14:52)
[2018-02-25] MEDS: MAG HYDROX/AL HYDROX/SIMETH 30 ML UNIT-DOSE CUP PO PRN (15:53)
[2018-02-25] MEDS: HYDROCORTISONE ACETATE 25 MG/SUPP.RECT RC SCH (21:56)
[2018-02-25] MEDS: IBUPROFEN 600 MG TABLET (FP) PO PRN (21:56)
[2018-02-25] MEDS: THIAMINE HCL 100 MG TABLET (FP) PO SCH (21:56)
[2018-02-25] MEDS: LIDOCAINE PATCH REMOVAL MC SCH (22:00)
[2018-02-26] MEDS: PANTOPRAZOLE 20 MG TABLET (FP) PO SCH (06:30)
[2018-02-26] MEDS: CYCLOBENZAPRINE HCL 10 MG TABLET (FP) PO SCH ×3 (06:30→21:40)
[2018-02-26] MEDS: ARTIFICIAL TEARS (POLYVINYL ALCOHOL) OPTH DROPS OU SCH ×3 (06:30→21:40)
[2018-02-26] MEDS: HYDROCHLOROTHIAZIDE 25 MG TABLET (FP) PO SCH (10:36)
[2018-02-26] MEDS: PRENATAL VITAMINS W/ FOLIC ACID TABLET (FP) PO SCH (10:36)
[2018-02-26] MEDS: FLUTICASONE PROP 0.05% 16 GM NASAL SPRAY NS SCH ×2 (10:37→21:39)
[2018-02-26] MEDS: METHYL SALICYLATE/MENTHOL OINT 30 GM TUBE TP SCH ×2 (10:37→21:39)
[2018-02-26] MEDS: LIDOCAINE 5% TOPICAL PATCH TP SCH (10:37)
[2018-02-26] MEDS: DOCUSATE SODIUM 100 MG CAPSULE (FP) PO PRN (10:38)
[2018-02-26] MEDS: IBUPROFEN 600 MG TABLET (FP) PO PRN (10:38)
[2018-02-26] MEDS: CARBAMIDE PEROXIDE 6.5% OTIC 15 ML BOTTLE AD SCH ×2 (10:42→21:41)
[2018-02-26] MEDS: MAG HYDROX/AL HYDROX/SIMETH 30 ML UNIT-DOSE CUP PO PRN (11:50)
[2018-02-26] MEDS: ACETAMINOPHEN 325 MG TABLET (FP) PO PRN (15:18)
[2018-02-26] MEDS ORDERED: PT OWN MED DRAWER 7, Y5N ONE (19:06)
[2018-02-26] MEDS: THIAMINE HCL 100 MG TABLET (FP) PO SCH (21:40)
[2018-02-26] MEDS: HYDROCORTISONE ACETATE 25 MG/SUPP.RECT RC SCH (21:40)
[2018-02-26] MEDS: LIDOCAINE PATCH REMOVAL MC SCH (21:41)
--- NOTE | 2018-02-27 06:05 | PN ---
Psychiatric Progress Note Vital Signs: Vital Signs Period Temp Pulse Resp BP Sys/Laurent Pulse Ox Last 24 Hr 97.6 F 80-114 18-20 112-135/71-78 Date of Session: 02/27/18 Chief Complaint:: Discharge Note HPI: Patient addressing Alcohol and Cocaine Dependence comorbid with NicotineDependence, Substance-Induced Mood Disorder and Substance-Induced Sleep Disorder ROS: HTN, GERD were medically managed Current Medications: Active Medications Generic Name Dose Route Start Last Admin Trade Name Freq PRN Reason Stop Dose Admin Acetaminophen 650 mg 02/02/18 19:01 02/26/18 15:18 Tylenol - PO 650 mg Q4H PRN Administration FEVER Al Hydroxide/Mg Hydroxide 30 ml 02/02/18 19:01 02/26/18 11:50 Mylanta Oral Suspension - PO 30 ml Q6H PRN Administration DYSPEPSIA Artificial Tears 1 drop 02/02/18 22:00 02/26/18 21:40 Artificial Tears OU Not Given TID XIANG Carbamide Perox/Anhydrous Glycerin 5 drop 02/12/18 22:00 02/26/18 21:41 Debrox - AD Not Given BID XIANG Cyclobenzaprine HCl 10 mg 02/12/18 14:00 02/26/18 21:40 Flexeril - PO 10 mg TID XIANG Administration Docusate Sodium 100 mg 02/05/18 13:09 02/26/18 10:38 Colace - PO 100 mg BID PRN Administration CONSTIPATION Eucalyptus/Menthol/Phenol/Sorbitol 1 each 02/02/18 19:01 02/25/18 06:37 Cepastat Lozenge - MM 1 each Q4H PRN Administration SORE THROAT Fluticasone Propionate 1 spray 02/02/18 22:00 02/26/18 21:39 Flonase - NS 1 spray BID XIANG Administration Guaifenesin 10 ml 02/02/18 19:01 Robitussin Dm - PO Q6H PRN COUGH Hydrochlorothiazide 25 mg 02/10/18 10:00 02/26/18 10:36 Hctz - PO 25 mg DAILY XIANG Administration Hydrocortisone 1 applic 02/04/18 20:11 02/23/18 21:46 Hytone 0.5% Cream - TP 1 applic QID PRN Administration FOR ITCHING Hydrocortisone Acetate 25 mg 02/02/18 22:00 02/26/18 21:40 Anusol Hc Suppository - RC 25 mg HS XIANG Administration Hydroxyzine Pamoate 50 mg 02/02/18 19:01 Vistaril - PO Q4H PRN AGITATION Ibuprofen 600 mg 02/23/18 09:17 02/26/18 10:38 Motrin - PO 600 mg Q6H PRN Administration FEVER Lidocaine 1 patch 02/12/18 14:10 02/26/18 10:37 Lidoderm Patch - TP 1 patch DAILY XIANG Administration Loperamide HCl 4 mg 02/02/18 19:01 Imodium - PO Q6H PRN DIARRHEA Magnesium Citrate 300 ml 02/02/18 19:01 02/20/18 10:09 Citroma - PO 300 ml Q48H PRN Administration CONSTIPATION Magnesium Hydroxide 30 ml 02/02/18 19:01 02/19/18 09:47 Milk Of Magnesia - PO 30 ml DAILY PRN Administration CONSTIPATION Melatonin 5 mg 02/02/18 22:00 Melatonin PO HS PRN INSOMNIA Methyl Salicylate 1 applic 02/23/18 10:00 02/26/18 21:39 Lazaro-Gustafson - TP 1 applic BID XIANG Administration Miscellaneous 1 each 02/12/18 22:00 02/26/18 21:41 Lidoderm Patch Removal MC Not Given DAILY@2200 XIANG Pantoprazole Sodium 20 mg 02/07/18 07:30 02/26/18 06:30 Protonix - PO 20 mg DAILY@0730 XIANG Administration Multivit/Folic Acid/Iron 1 tab 02/03/18 10:00 02/26/18 10:36 Vitamins ([facility]) - PO 1 tab DAILY XIANG Administration Pseudoephedrine/Triprolidine 1 combo 02/02/18 19:01 02/05/18 06:09 Actifed - PO 1 combo TID PRN Administration NASAL CONGESTION Thiamine HCl 100 mg 02/02/18 22:00 02/26/18 21:40 Vitamin B1 - PO 100 mg HS XIANG Administration Current Side Effect: No Lab tests ordered: Yes Lab tests reviewed: Yes Provider note:: Patient has completed this program today. He has met his treatment goals and will continue to address his issues in outpatient treatment at [facility] at [address] [place] [address]. 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 He is stable for dischargtoday. Total face to face time:: 35 Mental Status Exam - Mental Status Exam Alert and Oriented to: Time, Place, Person Cognitive Function: Fair Patient Appearance: Well Groomed Mood: Hopeful, Euthymic Affect: Appropriate Patient Behavior: Cooperative Speech Pattern: Clear, Artificially Ventilated Voice Loudness: Limited Variation Thought Process: Goal Oriented Thought Disorder: Not Present Hallucinations: Denies Suicidal Ideation: Denies Homicidal Ideation: Denies Insight/Judgement: Fair Sleep: Fair Appetite: Good Muscle strength/Tone: Normal Gait/Station: Normal Psychiatric Treatment Plan - Problem List (1) Alcohol dependence Current Visit: Yes (2) Cocaine dependence Current Visit: No Qualifiers: Substance use status: uncomplicated Qualified Code(s): F14.20 - Cocaine dependence, uncomplicated (3) Nicotine dependence Current Visit: No (4) Substance induced mood disorder Current Visit: Yes (5) Substance-induced sleep disorder Current Visit: Yes (6) Hypertension Current Visit: No Qualifiers: Hypertension type: essential hypertension Qualified Code(s): I10 - Essential (primary) hypertension (7) GERD (gastroesophageal reflux disease) Current Visit: No Qualifiers: Esophagitis presence: without esophagitis Qualified Code(s): K21.9 - Gastro -esophageal reflux disease without esophagitis Initial treatment plan: Patient is discharged today and referred to [facility] in [place] for outpatient treatment
[2018-02-27] MEDS: CYCLOBENZAPRINE HCL 10 MG TABLET (FP) PO SCH (06:29)
[2018-02-27] MEDS: PANTOPRAZOLE 20 MG TABLET (FP) PO SCH (06:29)
[2018-02-27] MEDS: ARTIFICIAL TEARS (POLYVINYL ALCOHOL) OPTH DROPS OU SCH (06:29)
[2018-02-27 06:44] VITALS: TEMP 98
[2018-02-27] MEDS: HYDROCHLOROTHIAZIDE 25 MG TABLET (FP) PO SCH (10:01)
[2018-02-27] MEDS: FLUTICASONE PROP 0.05% 16 GM NASAL SPRAY NS SCH (10:01)
[2018-02-27] MEDS: PRENATAL VITAMINS W/ FOLIC ACID TABLET (FP) PO SCH (10:01)
[2018-02-27] MEDS: METHYL SALICYLATE/MENTHOL OINT 30 GM TUBE TP SCH (10:02)
[2018-02-27] MEDS: CARBAMIDE PEROXIDE 6.5% OTIC 15 ML BOTTLE AD SCH (10:02)
[2018-02-27] MEDS: LIDOCAINE 5% TOPICAL PATCH TP SCH (10:02)
[2018-02-27] MEDS: IBUPROFEN 600 MG TABLET (FP) PO PRN (10:03)
[2018-02-27 10:19] VITALS: BP 133/89; PULSE 124
--- NOTE | 2018-02-27 10:36 | PN ---
Randy Progress Note Note: PT COMPLETED REHAB AND DISCHARGING TODAY. PT REPORTS HE HAS PCP AT [facility]. ALERT O X 3. NAD. Vital Signs 02/27/18 02/27/18 02/27/18 03:30 06:43 09:30 Temperature 98 F Pulse Rate 105 H 124 H Respiratory 18 20 18 Rate Blood Pressure 148/83 133/89 PLAN:FOLLOW UP WITH PRIMARY CARE WITHIN 1-2 WEEKS AFTER REHAB TX.
== END 2018-02-27 10:45 | disposition home or self-care (01) | DRG 772 ==
LOC: YASAS 17:57 → Y3W 17:58
PROVIDERS: ADMIT Psychiatry & Neurology Psychiatry; ATTEND Psychiatry & Neurology Psychiatry
PROC: HZ42ZZZ Group Counseling for Substance Abuse Treatment, Cognitive-Behavioral (ICD-10-PCS; principal; 2018-02-02)
DX: F10.20 Alcohol dependence, uncomplicated (principal); F14.20 Cocaine dependence, uncomplicated; F17.210 Nicotine dependence, cigarettes, uncomplicated; F19.24 Other psychoactive substance dependence with psychoactive substance-induced mood disorder; F19.282 Other psychoactive substance dependence with psychoactive substance-induced sleep disorder; I10 Essential (primary) hypertension; K21.9 Gastro-esophageal reflux disease without esophagitis; M54.89 Other dorsalgia; G89.29 Other chronic pain; M13.859 Other specified arthritis, unspecified hip; Z86.19 Personal history of other infectious and parasitic diseases; Z88.0 Allergy status to penicillin; Z88.7 Allergy status to serum and vaccine

== ENCOUNTER 2018-05-12 10:35 | Inpatient (IN) | payer OTHER ==
[2018-05-12 11:24] VITALS: BMI 30.4
--- NOTE | 2018-05-12 13:54 | HP ---
CIWA Score Nausea/Vomitin-Mild Nausea/No Vomiting Muscle Tremors: 3 Anxiety: 4-Mod. Anxious/Guarded Agitation: 1-Slight > Activity Paroxysmal Sweats: No Perspiration Orientation: 0-Oriented Tacttile Disturbances: 0-None Auditory Disturbances: 0-None Visual Disturbances: 2-Mild Sensitivity Headache: 2-Mild CIWA-Ar Total Score: 13 - Admission Criteria OASAS Guidelines: Admission for Medically Managed Detox: Requires at least one of the followin. CIWA greater than 12 2. Seizures within the past 24 hours 3. Delirium tremens within the past 24 hours 4. Hallucinations within the past 24 hours 5. Acute intervention needed for co occurring medical disorder 6. Acute intervention needed for co occurring psychiatric disorder 7. Severe withdrawal that cannot be handled at a lower level of care (continued vomiting, continued diarrhea, abnormal vital signs) requiring intravenous medication and/or fluids 8. Patient presents the following: CIWA greater than 12 Admission Criteria Met: Admission criteria met Admission ROS S - HPI Chief Complaint: This is my last time, I decided, I'm too old for this - I'm stopping for good Allergies/Adverse Reactions: Allergies Allergy/AdvReac Type Severity Reaction Status Date / Time Penicillins Allergy Severe Difficulty Verified 01/29/18 15:29 Breathing tomato [Tomato] Allergy Mild Itching Verified 01/29/18 15:29 tuberculin, purified protein Allergy Rash Verified 01/29/18 15:29 deriva [Tuberculin,Purif.Prot.Deriv.] History of Present Illness: 63 yo gentleman here for detox from alcohol - denies seizures or black outs, this is one of many admissions for treatment of long time alcohol dependence. Drinks first thing in the morning or he gets 'sick and shaky' . Exam Limitations: Clinical Condition - Ebola screening Have you traveled outside of the country in the last 21 days: No (N) Have you had contact with anyone from an Ebola affected area: No Have you been sick,other than usual withdrawal symptoms: No Do you have a fever: No - Review of Systems Constitutional: Loss of Appetite, Malaise, Changes in sleep EENT: reports: Blurred Vision, Other (chronic eye sensitivity) Respiratory: reports: No Symptoms reported Cardiac: reports: No Symptoms Reported GI: reports: Diarrhea, Nausea, Abdominal cramping : reports: Frequency Musculoskeletal: reports: Joint Pain (right shoulder) Integumentary: reports: Dryness Neuro: reports: Headache, Tremors Endocrine: reports: No Symptoms Reported Hematology: reports: No Symptoms Reported Psychiatric: reports: Judgement Intact, Mood/Affect Appropiate, Orientated x3, Anxious Other Systems: Reviewed and Negative Patient History - Patient Medical History Hx Anemia: No Hx Asthma: No Hx Chronic Obstructive Pulmonary Disease (COPD): No Hx Cancer: No Hx Cardiac Disorders: No Hx Congestive Heart Failure: No Hx Hypertension: Yes (non adherent to meds) Hx Hypercholesterolemia: No Hx Pacemaker: No HX Cerebrovascular Accident: No Hx Seizures: No Hx Dementia: No Hx Diabetes: No Hx Gastrointestinal Disorders: No Hx Liver Disease: No Hx Genitourinary Disorders: No Hx Sexually Transmitted Disorders: No Hx Renal Disease (ESRD): No Hx Thyroid Disease: No Hx Human Immunodeficiency Virus (HIV): No (09/15 negative) Hx Hepatitis C: No Hx Depression: No Hx Suicide Attempt: No Hx Bipolar Disorder: No Hx Schizophrenia: No Other Medical History: arthritis right shoulder; hypersensitivity in eyes - Patient Surgical History Past Surgical History: No Hx Neurologic Surgery: No Hx Cataract Extraction: No Hx Cardiac Surgery: No Hx Lung Surgery: No Hx Breast Surgery: No Hx Breast Biopsy: No Hx Abdominal Surgery: No Hx Appendectomy: No Hx Cholecystectomy: No Hx Genitourinary Surgery: No Hx Section: No Hx Orthopedic Surgery: No Anesthesia Reaction: No - PPD History Previous Implant?: No Documented Results: Negative w/o proof Implanted On Prior [facility] Admission?: No Date: 05/02/17 (cxr) Results: Allergic to PPD PPD to be Administered?: No - Reproductive History Patient is a Female of Child Bearing Age (11 -55 yrs old): No (male) - Smoking Cessation Smoking history: Current some day smoker Have you smoked in the past 12 months: Yes Aproximately how many cigarettes per day: 5 Cigars Per Day: 0 Hx Chewing Tobacco Use: No Initiated information on smoking cessation: Yes 'Breaking Loose' booklet given: 05/12/18 (give no floor) - Substance & Tx. History Hx Alcohol Use: Yes Hx Substance Use: No Substance Use Type: Alcohol Hx Substance Use Treatment: Yes (detox, rehab) - Substances Abused alcohol Route: Oral Frequency: Daily Amount used: 2 pints liquor; one 22 oz beer Age of first use: 18 Date of Last Use: 05/12/18 Family Disease History - Family Disease History Family Disease History: Heart Disease: Sister (five - healthy , two with HTN), [place]: Mother (, BREAST), Other: Father (, no contact, ), Mother, Brother (five - healthy), Sister, Son (age 24 - lives in [place]), Daughter (age 21 - lives in [place]) Admission Physical Exam [facility] - Vital Signs Vital Signs: Vital Signs - 24 hr 05/12/18 11:23 Temperature 97.0 F L Pulse Rate 110 H Respiratory 18 Rate Blood Pressure 138/87 - Physical General Appearance: Yes: Nourished, Appropriately Dressed, Mild Distress, Tremorous, Anxious HEENTM: Yes: Hearing grossly Normal, Normal ENT Inspection, Normocephalic, Normal Voice Respiratory: Yes: Normal Breath Sounds, No Respiratory Distress Neck: Yes: No masses,lesions,Nodules, Supple Breast: Yes: Breast Exam Deferred Cardiology: Yes: Regular Rhythm, Tachycardia Abdominal: Yes: Soft, Protuberent, Hernia Genitourinary: Yes: Frequency Back: Yes: Normal Inspection Musculoskeletal: Yes: full range of Motion, Gait Steady, Joint Stiffness (right shoulder stiffness) Extremities: Yes: Normal Inspection, Non-Tender 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: Yes: Fully Oriented, Alert, Motor Strength 5/5, Normal Mood/Affect , Normal Response Integumentary: Yes: Normal Color, Warm Lymphatic: Yes: Within Normal Limits - Diagnostic (1) Alcohol dependence with uncomplicated withdrawal Current Visit: Yes Status: Chronic (2) Abdominal hernia Current Visit: Yes Status: Chronic Qualifiers: Hernia type: umbilical Obstruction and gangrene presence: without obstruction or gangrene Qualified Code(s): K42.9 - Umbilical hernia without obstruction or gangrene (3) Nicotine dependence Current Visit: Yes Status: Chronic (4) Dry eyes Current Visit: Yes Status: Chronic Comment: with sensitivity to light (5) Hypertension Current Visit: Yes Status: Chronic Qualifiers: Hypertension type: essential hypertension Qualified Code(s): I10 - Essential (primary) hypertension Cleared for Admission [facility] - Detox or Rehab [facility] Level of Care: Medically Managed Detox Regimen/Protocol: Librium S Breath Alcohol Content Breath Alcohol Content: 0.226 Urine Drug Screen - Results Drug Screen Negative: Yes
[2018-05-12] MEDS ORDERED: chlordiazePOXIDE HCL 25 MG CAPSULE PO PRN (14:07)
[2018-05-12] MEDS ORDERED: LOPERAMIDE HCL 2 MG CAPSULE PO PRN (14:07)
[2018-05-12] MEDS ORDERED: MENTHOL/PHENOL 1 EACH UD MM PRN (14:07)
[2018-05-12] MEDS ORDERED: P-EPHED 60MG/TRIPROLIDI 2.5MG TABLET PO PRN (14:07)
[2018-05-12] MEDS ORDERED: MAGNESIUM HYDROX 2400MG/30ML ORAL SUSPENSION 30 ML CUP PO PRN (14:07)
[2018-05-12] MEDS ORDERED: ACETAMINOPHEN 325 MG TABLET (FP) PO PRN (14:07)
[2018-05-12] MEDS ORDERED: MAGNESIUM CITRATE 300 ML BOTTLE PO PRN (14:07)
[2018-05-12] MEDS ORDERED: guaiFENesin/D-METHORPHAN HB 10 ML UNIT-DOSE CUPS PO PRN (14:07)
[2018-05-12] MEDS: HYDROCHLOROTHIAZIDE 12.5 MG CAPSULE (FP) PO SCH (19:01)
[2018-05-12] MEDS: chlordiazePOXIDE HCL 25 MG CAPSULE PO SCH ×2 (19:01→22:57)
[2018-05-12] MEDS ORDERED: MELATONIN 5 MG TABLETS PO PRN (22:00)
[2018-05-12] MEDS: HYDROCORTISONE 0.5% TOPICAL CREAM 30 GM TUBE TP SCH (22:57)
[2018-05-12] MEDS: ARTIFICIAL TEARS (POLYVINYL ALCOHOL) OPTH DROPS OU SCH (22:57)
[2018-05-12] MEDS: FLUTICASONE PROP 0.05% 16 GM NASAL SPRAY NS SCH (22:57)
[2018-05-12] MEDS: HYDROCORTISONE ACETATE 25 MG/SUPP.RECT RC SCH (22:57)
[2018-05-12] MEDS: THIAMINE HCL 100 MG TABLET (FP) PO SCH (22:57)
[2018-05-13] MEDS: chlordiazePOXIDE HCL 25 MG CAPSULE PO SCH ×4 (06:41→22:39)
[2018-05-13] MEDS: ARTIFICIAL TEARS (POLYVINYL ALCOHOL) OPTH DROPS OU SCH ×3 (07:33→22:36)
[2018-05-13] MEDS: HYDROCHLOROTHIAZIDE 12.5 MG CAPSULE (FP) PO SCH (10:48)
[2018-05-13] MEDS: FLUTICASONE PROP 0.05% 16 GM NASAL SPRAY NS SCH ×2 (10:48→22:39)
[2018-05-13] MEDS: PRENATAL VITAMINS W/ FOLIC ACID TABLET (FP) PO SCH (10:48)
[2018-05-13] MEDS: HYDROCORTISONE 0.5% TOPICAL CREAM 30 GM TUBE TP SCH (10:49)
[2018-05-13 10:55] LABS: ALBUMIN 3.4 g/dl (3.4-5.0); ALK PHOS 47 U/L (45-117); ANION GAP 8 MMOL/L (8-16); BILIRUBIN,TOTAL 0.4 mg/dL (0.2-1); BLOOD UREA NITROGEN 21 mg/dL (7-18); CALCIUM 8.2 mg/dL (8.5-10.1); CHLORIDE 109 mmol/L (98-107); CO2 25 mmol/L (21-32); CREATININE 1.2 mg/dL (0.55-1.3); GLUCOSE,RANDOM 78 mg/dL (74-106); HEMATOCRIT 38.3 % (35.4-49); HEMOGLOBIN 12.4 GM/dL (11.7-16.9); MCH 30.6 pg (25.7-33.7); MCHC 32.3 g/dl (32.0-35.9); MEAN CELL VOLUME 94.6 fl (80-96); MEAN PLT VOLUME 8.1 fl (7.5-11.1); PLATELET COUNT 227 K/MM3 (134-434); POTASSIUM 4.4 mmol/L (3.5-5.1); RBC 4.05 M/mm3 (4.00-5.60); RDW 15.6 % (11.9-15.9); SGOT/AST 34 U/L (15-37); SGPT/ALT 40 U/L (13-61); SODIUM 142 mmol/L (136-145); TOT PROT 6.7 g/dl (6.4-8.2); WHITE BLOOD COUNT 5.9 K/mm3 (4.0-10.0)
[2018-05-13] MEDS: METHYL SALICYLATE/MENTHOL OINT 30 GM TUBE TP SCH ×2 (10:55→22:36)
[2018-05-13] MEDS: BENZOCAINE 28 GM HEMORRHOIDAL OINTMENT PR SCH ×3 (10:55→22:37)
[2018-05-13] MEDS: NAPROXEN 500 MG TABLET (FP) PO PRN ×2 (14:06→22:41)
--- NOTE | 2018-05-13 16:02 | PN ---
S CIWA - CIWA Score Nausea/Vomitin Muscle Tremors: 4-Moderate,w/Arms Extend Anxiety: 4-Mod. Anxious/Guarded Agitation: 4-Moderately Restless Paroxysmal Sweats: 3 Orientation: 0-Oriented Tacttile Disturbances: 1-Very Mild Itch/Numbness Auditory Disturbances: 0-None Visual Disturbances: 0-None Headache: 0-None Present CIWA-Ar Total Score: 18 [facility] Progress Note (SOAP) Subjective: Diarrhea, interrupted sleep, anxious; c/o rectal itching from hemorrhoid and shoulder pain due to arthritis and requesting hemorrhoidal cream and pain cream. Objective: 05/13/18 16:00 Last Vital Signs Temp Pulse Resp BP Pulse Ox 97.9 F 105 H 16 128/75 05/13/18 14:14 05/13/18 14:14 05/13/18 14:14 05/13/18 14:14 Laboratory Tests 05/13/18 05/13/18 05/13/18 07:50 07:50 07:50 WBC 5.9 RBC 4.05 Hgb 12.4 Hct 38.3 MCV 94.6 MCH 30.6 MCHC 32.3 RDW 15.6 Plt Count 227 D MPV 8.1 Sodium 142 Potassium 4.4 Chloride 109 H Carbon Dioxide 25 Anion Gap 8 BUN 21 H Creatinine 1.2 Creat Clearance w eGFR > 60 Random Glucose 78 Calcium 8.2 L Total Bilirubin 0.4 AST 34 ALT 40 Alkaline Phosphatase 47 Total Protein 6.7 Albumin 3.4 RPR Titer Nonreactive Labs reviewed: bun 21 Assessment: 05/13/18 16:01 Withdrawal symptoms Noted with azotemia Plan: Continue detox Azotemia: encouraged PO water intake
[2018-05-13] MEDS: HYDROCORTISONE ACETATE 25 MG/SUPP.RECT RC SCH (22:36)
[2018-05-13] MEDS: THIAMINE HCL 100 MG TABLET (FP) PO SCH (22:39)
[2018-05-14] MEDS: ARTIFICIAL TEARS (POLYVINYL ALCOHOL) OPTH DROPS OU SCH ×3 (05:58→22:12)
[2018-05-14] MEDS: BENZOCAINE 28 GM HEMORRHOIDAL OINTMENT PR SCH ×3 (05:58→22:10)
[2018-05-14] MEDS: chlordiazePOXIDE HCL 25 MG CAPSULE PO SCH ×2 (05:58→10:50)
[2018-05-14] MEDS: SODIUM CHLORIDE NASAL SPRAY 44 ML BOTTLE NS PRN (10:49)
[2018-05-14] MEDS: METHYL SALICYLATE/MENTHOL OINT 30 GM TUBE TP SCH ×2 (10:49→22:10)
[2018-05-14] MEDS: HYDROCHLOROTHIAZIDE 12.5 MG CAPSULE (FP) PO SCH (10:50)
[2018-05-14] MEDS: NAPROXEN 500 MG TABLET (FP) PO PRN ×2 (10:50→22:09)
[2018-05-14] MEDS: PRENATAL VITAMINS W/ FOLIC ACID TABLET (FP) PO SCH (10:50)
[2018-05-14] MEDS: HYDROCORTISONE 0.5% TOPICAL CREAM 30 GM TUBE TP SCH (10:51)
[2018-05-14] MEDS: FLUTICASONE PROP 0.05% 16 GM NASAL SPRAY NS SCH ×2 (10:51→22:12)
--- NOTE | 2018-05-14 12:40 | PN ---
S CIWA - CIWA Score Nausea/Vomitin-Mild Nausea/No Vomiting Muscle Tremors: 3 Anxiety: 3 Agitation: 2 Paroxysmal Sweats: 1-Minimal Palms Moist Orientation: 0-Oriented Tacttile Disturbances: 0-None Auditory Disturbances: 0-None Visual Disturbances: 0-None Headache: 2-Mild CIWA-Ar Total Score: 12 [facility] Progress Note (SOAP) Subjective: denies pain nor discomfort from right abdominal hernia abdomen binder in place, patient stated that he does not want to do anything about the hernia that "it does not bother me" tremor sweating Objective: 05/14/18 12:44 Vital Signs Temperature 97.6 F 05/14/18 10:07 Pulse Rate 95 H 05/14/18 10:07 Respiratory Rate 18 05/14/18 10:07 Blood Pressure 140/80 05/14/18 10:07 O2 Sat by Pulse Oximetry (%) Laboratory Last Values WBC 5.9 K/mm3 (4.0-10.0) 05/13/18 07:50 RBC 4.05 M/mm3 (4.00-5.60) 05/13/18 07:50 Hgb 12.4 GM/dL (11.7-16.9) 05/13/18 07:50 Hct 38.3 % (35.4-49) 05/13/18 07:50 MCV 94.6 fl (80-96) 05/13/18 07:50 MCH 30.6 pg (25.7-33.7) 05/13/18 07:50 MCHC 32.3 g/dl (32.0-35.9) 05/13/18 07:50 RDW 15.6 % (11.9-15.9) 05/13/18 07:50 Plt Count 227 K/MM3 (134-434) D 05/13/18 07:50 MPV 8.1 fl (7.5-11.1) 05/13/18 07:50 Sodium 142 mmol/L (136-145) 05/13/18 07:50 Potassium 4.4 mmol/L (3.5-5.1) 05/13/18 07:50 Chloride 109 mmol/L (98-107) H 05/13/18 07:50 Carbon Dioxide 25 mmol/L (21-32) 05/13/18 07:50 Anion Gap 8 MMOL/L (8-16) 05/13/18 07:50 BUN 21 mg/dL (7-18) H 05/13/18 07:50 Creatinine 1.2 mg/dL (0.55-1.3) 05/13/18 07:50 Creat Clearance w eGFR > 60 (>60) 05/13/18 07:50 Random Glucose 78 mg/dL (74-106) 05/13/18 07:50 Calcium 8.2 mg/dL (8.5-10.1) L 05/13/18 07:50 Total Bilirubin 0.4 mg/dL (0.2-1) 05/13/18 07:50 AST 34 U/L (15-37) 05/13/18 07:50 ALT 40 U/L (13-61) 05/13/18 07:50 Alkaline Phosphatase 47 U/L (45-117) 05/13/18 07:50 Total Protein 6.7 g/dl (6.4-8.2) 05/13/18 07:50 Albumin 3.4 g/dl (3.4-5.0) 05/13/18 07:50 RPR Titer Nonreactive (NONREACTIVE) 05/13/18 07:50 lab noted Assessment: 05/14/18 12:44 withdrawal sx Plan: continue detox
[2018-05-14] MEDS: chlordiazePOXIDE 5 MG CAPSULE PO SCH ×2 (17:03→22:09)
[2018-05-14] MEDS: THIAMINE HCL 100 MG TABLET (FP) PO SCH (22:09)
[2018-05-14] MEDS: MAG HYDROX/AL HYDROX/SIMETH 30 ML UNIT-DOSE CUP PO PRN (22:10)
[2018-05-14] MEDS: HYDROCORTISONE ACETATE 25 MG/SUPP.RECT RC SCH (22:10)
[2018-05-15] MEDS: ARTIFICIAL TEARS (POLYVINYL ALCOHOL) OPTH DROPS OU SCH ×3 (05:18→22:20)
[2018-05-15] MEDS: chlordiazePOXIDE 5 MG CAPSULE PO SCH ×2 (05:18→10:16)
[2018-05-15] MEDS: BENZOCAINE 28 GM HEMORRHOIDAL OINTMENT PR SCH ×3 (05:19→22:19)
[2018-05-15] MEDS: PRENATAL VITAMINS W/ FOLIC ACID TABLET (FP) PO SCH (10:15)
[2018-05-15] MEDS: HYDROCHLOROTHIAZIDE 12.5 MG CAPSULE (FP) PO SCH (10:16)
[2018-05-15] MEDS: NAPROXEN 500 MG TABLET (FP) PO PRN ×2 (10:18→22:18)
[2018-05-15] MEDS: FLUTICASONE PROP 0.05% 16 GM NASAL SPRAY NS SCH ×2 (10:19→22:20)
[2018-05-15] MEDS: METHYL SALICYLATE/MENTHOL OINT 30 GM TUBE TP SCH ×2 (10:42→22:18)
[2018-05-15] MEDS: HYDROCORTISONE 0.5% TOPICAL CREAM 30 GM TUBE TP SCH (10:43)
--- NOTE | 2018-05-15 15:46 | PN ---
S CIWA - CIWA Score Nausea/Vomitin-No Nausea/No Vomiting Muscle Tremors: 3 Anxiety: 2 Agitation: 0-Normal Activity Paroxysmal Sweats: 3 Orientation: 0-Oriented Tacttile Disturbances: 1-Very Mild Itch/Numbness Auditory Disturbances: 0-None Visual Disturbances: 2-Mild Sensitivity Headache: 0-None Present CIWA-Ar Total Score: 11 S Progress Note (SOAP) Subjective: Body Aches, Sweating, Tremors, Diarrhea, Stomach Cramping. Objective: PATIENT A & O X 3, OBSERVED AMBULATING ON UNIT. IN NO ACUTE DISTRESS. 05/15/18 15:44 Vital Signs Temperature 97.5 F L 05/15/18 13:07 Pulse Rate 105 H 05/15/18 13:07 Respiratory Rate 18 05/15/18 13:07 Blood Pressure 133/86 05/15/18 13:07 O2 Sat by Pulse Oximetry (%) Laboratory Tests 05/13/18 05/13/18 05/13/18 07:50 07:50 07:50 WBC 5.9 RBC 4.05 Hgb 12.4 Hct 38.3 MCV 94.6 MCH 30.6 MCHC 32.3 RDW 15.6 Plt Count 227 D MPV 8.1 Sodium 142 Potassium 4.4 Chloride 109 H Carbon Dioxide 25 Anion Gap 8 BUN 21 H Creatinine 1.2 Creat Clearance w eGFR > 60 Random Glucose 78 Calcium 8.2 L Total Bilirubin 0.4 AST 34 ALT 40 Alkaline Phosphatase 47 Total Protein 6.7 Albumin 3.4 RPR Titer Nonreactive LABS NOTED. Assessment: 05/15/18 15:45 WITHDRAWAL SYMPTOMS. Plan: CONTINUE DETOX. INCREASE DAILY PO FLUID INTAKE. PRN IMMODIUM FOR DIARRHEA.
[2018-05-15] MEDS: chlordiazePOXIDE HCL 10 MG CAPSULE PO SCH ×2 (17:20→22:18)
[2018-05-15] MEDS: HYDROCORTISONE ACETATE 25 MG/SUPP.RECT RC SCH (22:18)
[2018-05-15] MEDS: THIAMINE HCL 100 MG TABLET (FP) PO SCH (22:18)
[2018-05-15] MEDS: MAG HYDROX/AL HYDROX/SIMETH 30 ML UNIT-DOSE CUP PO PRN (22:19)
[2018-05-16] MEDS: chlordiazePOXIDE HCL 10 MG CAPSULE PO SCH ×2 (05:18→10:28)
[2018-05-16] MEDS: SODIUM CHLORIDE NASAL SPRAY 44 ML BOTTLE NS PRN (05:19)
[2018-05-16] MEDS: ARTIFICIAL TEARS (POLYVINYL ALCOHOL) OPTH DROPS OU SCH (05:20)
[2018-05-16] MEDS: BENZOCAINE 28 GM HEMORRHOIDAL OINTMENT PR SCH (07:14)
--- NOTE | 2018-05-16 08:27 | DS ---
[facility] Detox Discharge Summary Admission Date: 05/12/18 Discharge Date: 05/16/18 - History Present History: Alcohol Dependence Additional Comments: 63 years old male admitted on 05/12/18 for alcohol withdrawal stabilization completed detox regimen [facility] - Physical Exam Results Vital Signs: Vital Signs Temperature 97.9 F 05/16/18 06:03 Pulse Rate 93 H 05/16/18 06:03 Respiratory Rate 18 05/16/18 06:03 Blood Pressure 142/77 05/16/18 06:03 O2 Sat by Pulse Oximetry (%) Pertinent Admission Physical Exam Findings: alcohol withdrawal sx Laboratory Last Values WBC 5.9 K/mm3 (4.0-10.0) 05/13/18 07:50 RBC 4.05 M/mm3 (4.00-5.60) 05/13/18 07:50 Hgb 12.4 GM/dL (11.7-16.9) 05/13/18 07:50 Hct 38.3 % (35.4-49) 05/13/18 07:50 MCV 94.6 fl (80-96) 05/13/18 07:50 MCH 30.6 pg (25.7-33.7) 05/13/18 07:50 MCHC 32.3 g/dl (32.0-35.9) 05/13/18 07:50 RDW 15.6 % (11.9-15.9) 05/13/18 07:50 Plt Count 227 K/MM3 (134-434) D 05/13/18 07:50 MPV 8.1 fl (7.5-11.1) 05/13/18 07:50 Sodium 142 mmol/L (136-145) 05/13/18 07:50 Potassium 4.4 mmol/L (3.5-5.1) 05/13/18 07:50 Chloride 109 mmol/L (98-107) H 05/13/18 07:50 Carbon Dioxide 25 mmol/L (21-32) 05/13/18 07:50 Anion Gap 8 MMOL/L (8-16) 05/13/18 07:50 BUN 21 mg/dL (7-18) H 05/13/18 07:50 Creatinine 1.2 mg/dL (0.55-1.3) 05/13/18 07:50 Creat Clearance w eGFR > 60 (>60) 05/13/18 07:50 Random Glucose 78 mg/dL (74-106) 05/13/18 07:50 Calcium 8.2 mg/dL (8.5-10.1) L 05/13/18 07:50 Total Bilirubin 0.4 mg/dL (0.2-1) 05/13/18 07:50 AST 34 U/L (15-37) 05/13/18 07:50 ALT 40 U/L (13-61) 05/13/18 07:50 Alkaline Phosphatase 47 U/L (45-117) 05/13/18 07:50 Total Protein 6.7 g/dl (6.4-8.2) 05/13/18 07:50 Albumin 3.4 g/dl (3.4-5.0) 05/13/18 07:50 RPR Titer Nonreactive (NONREACTIVE) 05/13/18 07:50 lab noted - Treatment Hospital Course: Detox Protocol Followed, Detoxed Safely, Responded well, Discharged Condition Good, Rehab Referral Accepted Patient has Accepted a Rehab Referral to: [facility] - Medication Discharge Medications: Ambulatory Orders Hydrocortisone Acetate [Anusol Hc Suppository -] 25 mg RC HS #5 supp.rect Polyvinyl Alcohol [Artificial Tears] 1 drop OP TID #1 drops 10/31/17 Sodium Chloride Nasal Mitchell [[place] Mitchell Nasal Mitchell -] 2 spray NS Q6H PRN #1 spray 10/31/17 Naproxen [Naprosyn -] 500 mg PO PRN 12/24/17 Hydrocortisone 0.5% Cream [Hytone 0.5% Cream -] 1 applic TP DAILY 01/29/18 Fluticasone Prop 0.05% Nasal [Flonase -] 1 spray NS BID #1 spray 02/27/18 Hydrochlorothiazide [Hctz -] 12.5 mg PO DAILY #30 cap 05/16/18 - Diagnosis (1) Alcohol dependence with uncomplicated withdrawal Status: Acute (2) Substance induced mood disorder Status: Suspected (3) GERD (gastroesophageal reflux disease) Status: Chronic Qualifiers: Esophagitis presence: without esophagitis Qualified Code(s): K21.9 - Gastro -esophageal reflux disease without esophagitis (4) Hypertension Status: Chronic Qualifiers: Hypertension type: essential hypertension Qualified Code(s): I10 - Essential (primary) hypertension (5) Nicotine dependence Status: Acute (6) PPD positive Status: Resolved - AMA Did Patient Leave Against Medical Advice: No
[2018-05-16 09:22] VITALS: BP 148/81; PULSE 114; TEMP 97.2
[2018-05-16] MEDS: METHYL SALICYLATE/MENTHOL OINT 30 GM TUBE TP SCH (10:28)
[2018-05-16] MEDS: PRENATAL VITAMINS W/ FOLIC ACID TABLET (FP) PO SCH (10:28)
[2018-05-16] MEDS: HYDROCORTISONE 0.5% TOPICAL CREAM 30 GM TUBE TP SCH (10:28)
[2018-05-16] MEDS: HYDROCHLOROTHIAZIDE 12.5 MG CAPSULE (FP) PO SCH (10:28)
[2018-05-16] MEDS: FLUTICASONE PROP 0.05% 16 GM NASAL SPRAY NS SCH (10:28)
== END 2018-05-16 11:15 | disposition home or self-care (01) | DRG 775 ==
LOC: YASAS 10:35 → Y3N 17:52
PROC: HZ2ZZZZ Detoxification Services for Substance Abuse Treatment (ICD-10-PCS; principal; 2018-05-12)
DX: F10.230 Alcohol dependence with withdrawal, uncomplicated (principal); F17.210 Nicotine dependence, cigarettes, uncomplicated; F19.24 Other psychoactive substance dependence with psychoactive substance-induced mood disorder; F10.282 Alcohol dependence with alcohol-induced sleep disorder; I10 Essential (primary) hypertension; K21.9 Gastro-esophageal reflux disease without esophagitis; K42.9 Umbilical hernia without obstruction or gangrene; K64.9 Unspecified hemorrhoids; H04.123 Dry eye syndrome of bilateral lacrimal glands; R79.89 Other specified abnormal findings of blood chemistry; R76.11 Nonspecific reaction to tuberculin skin test without active tuberculosis; M13.811 Other specified arthritis, right shoulder; M13.859 Other specified arthritis, unspecified hip
CPT/HCPCS: 36415; 80053; 85027; 86593

== ENCOUNTER 2018-06-20 10:38 | Inpatient (IN) | payer OTHER ==
[2018-06-20 10:44] VITALS: BMI 29.0
--- NOTE | 2018-06-20 14:49 | HP ---
CIWA Score Nausea/Vomitin Muscle Tremors: 2 Anxiety: 2 Agitation: 2 Paroxysmal Sweats: 1-Minimal Palms Moist Orientation: 0-Oriented Tacttile Disturbances: 1-Very Mild Itch/Numbness Auditory Disturbances: 1-Very Mild Visual Disturbances: 0-None Headache: 2-Mild CIWA-Ar Total Score: 13 - Admission Criteria OASAS Guidelines: Admission for Medically Managed Detox: Requires at least one of the followin. CIWA greater than 12 2. Seizures within the past 24 hours 3. Delirium tremens within the past 24 hours 4. Hallucinations within the past 24 hours 5. Acute intervention needed for co occurring medical disorder 6. Acute intervention needed for co occurring psychiatric disorder 7. Severe withdrawal that cannot be handled at a lower level of care (continued vomiting, continued diarrhea, abnormal vital signs) requiring intravenous medication and/or fluids 8. Patient presents the following: CIWA greater than 12 Admission Criteria Met: Admission criteria met Admission ROS S - HPI Chief Complaint: i need help to stop drinking alcohol Allergies/Adverse Reactions: Allergies Allergy/AdvReac Type Severity Reaction Status Date / Time Penicillins Allergy Severe Difficulty Verified 06/20/18 14:42 Breathing tomato [Tomato] Allergy Mild Itching Verified 06/20/18 14:42 tuberculin, purified protein Allergy Rash Verified 06/20/18 14:42 deriva [Tuberculin,Purif.Prot.Deriv.] History of Present Illness: this 63 years old male with alcohol dependence seeking detox,withdrawal symptom, last detox 02/27/18to 03/01/18 syncope alcohol related multiple admissions in detox seen at both [facility] last night positive ppd longest period of sobriety 9 months has umbilical and epigastric hernia wearing the abdominal binder - Ebola screening Have you traveled outside of the country in the last 21 days: No Have you had contact with anyone from an Ebola affected area: No Have you been sick,other than usual withdrawal symptoms: No Do you have a fever: No - Review of Systems Constitutional: Loss of Appetite, Malaise, Night Sweats, Changes in sleep, Weakness EENT: reports: Nose Congestion Respiratory: reports: No Symptoms reported Cardiac: reports: No Symptoms Reported GI: reports: Nausea, Poor Appetite, Abdominal cramping : reports: No Symptoms Reported Musculoskeletal: reports: Back Pain, Muscle Pain Integumentary: reports: Dryness Neuro: reports: Headache, Tremors Endocrine: reports: No Symptoms Reported Hematology: reports: No Symptoms Reported Psychiatric: reports: No Sypmtoms Reported, Judgement Intact, Mood/Affect Appropiate, Orientated x3 Patient History - Patient Medical History Hx Anemia: No Hx Asthma: No Hx Chronic Obstructive Pulmonary Disease (COPD): No Hx Cancer: No Hx Cardiac Disorders: No Hx Congestive Heart Failure: No Hx Hypertension: Yes (no med) Hx Hypercholesterolemia: No Hx Pacemaker: No HX Cerebrovascular Accident: No Hx Seizures: No Hx Dementia: No Hx Diabetes: No Hx Gastrointestinal Disorders: No Hx Liver Disease: No Hx Genitourinary Disorders: No Hx Sexually Transmitted Disorders: No Hx Renal Disease (ESRD): No Hx Thyroid Disease: No Hx Human Immunodeficiency Virus (HIV): No (09/15 negative) Hx Hepatitis C: No Hx Depression: No Hx Suicide Attempt: No Hx Bipolar Disorder: No Hx Schizophrenia: No Other Medical History: no sucidal,no homicidal - Patient Surgical History Past Surgical History: No Hx Neurologic Surgery: No Hx Cataract Extraction: No Hx Cardiac Surgery: No Hx Lung Surgery: No Hx Breast Surgery: No Hx Breast Biopsy: No Hx Abdominal Surgery: No Hx Appendectomy: No Hx Cholecystectomy: No Hx Genitourinary Surgery: No Hx Section: No Hx Orthopedic Surgery: No Anesthesia Reaction: No - PPD History Previous Implant?: Yes Documented Results: Positive w/o proof Date: 05/02/17 Results: positive ppd PPD to be Administered?: No - Smoking Cessation Smoking history: Current some day smoker Have you smoked in the past 12 months: Yes Aproximately how many cigarettes per day: 10 Cigars Per Day: 0 Hx Chewing Tobacco Use: No Initiated information on smoking cessation: Yes 'Breaking Loose' booklet given: 06/20/18 - Substance & Tx. History Hx Alcohol Use: Yes Hx Substance Use: No Substance Use Type: Alcohol Hx Substance Use Treatment: Yes ([facility] 02/27/18 to 03/01/18 not completed) - Substances Abused Alcohol Route: Oral Frequency: Daily Amount used: 3 pints vodka/ 4 beers Age of first use: 19 Date of Last Use: 06/20/18 Family Disease History - Family Disease History Family Disease History: Heart Disease: Sister (five - healthy , two with HTN), CA: Mother (, BREAST), Other: Father (, no contact, ), Mother, Brother (five - healthy), Sister, Son (age 24 - lives in [place]), Daughter (age 21 - lives in [place]) Admission Physical Exam [facility] - Vital Signs Vital Signs: Vital Signs - 24 hr 06/20/18 10:42 Temperature 95.9 F L Pulse Rate 91 H Respiratory 18 Rate Blood Pressure 121/62 - Physical General Appearance: Yes: Moderate Distress, Tremorous, Irritable, Sweating, Anxious HEENTM: Yes: Normal ENT Inspection, GLEN, Pharynx Normal Respiratory: Yes: Lungs Clear, Normal Breath Sounds, No Respiratory Distress Neck: Yes: Within Normal Limits, Supple, Trachea in good position Breast: Yes: Within Normal Limits Cardiology: Yes: Within Normal Limits, Regular Rhythm, Regular Rate, S1, S2 Abdominal: Yes: Within Normal Limits, Normal Bowel Sounds, Non Tender, Soft, Other (umbilicaland epigastric hernia wearing abdominal binder) Genitourinary: Yes: Within Normal Limits Back: Yes: Muscle Spasm Musculoskeletal: Yes: Back pain, Muscle Pain Extremities: Yes: Within Normal Limits, Normal Range of Motion, Tremors 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: Yes: alterations workroom 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 II-XII NML intact, Fully Oriented, Alert, Motor Strength 5/5 Integumentary: Yes: Dry Lymphatic: Yes: Within Normal Limits - Diagnostic (1) Alcohol dependence with uncomplicated withdrawal Current Visit: No Status: Acute (2) Dry eye Current Visit: No Status: Acute (3) Nicotine dependence Current Visit: No Status: Acute (4) Arthritis of shoulder Current Visit: No Status: Chronic (5) Dry eyes Current Visit: No Status: Chronic Comment: with sensitivity to light (6) Hemorrhoids Current Visit: No Status: Chronic Qualifiers: Hemorrhoid type: unspecified Qualified Code(s): K64.9 - Unspecified hemorrhoids (7) Hip arthritis Current Visit: No Status: Chronic (8) Alcohol dependence with uncomplicated intoxication Current Visit: Yes Status: Acute (9) Positive PPD Current Visit: Yes Status: Acute (10) Umbilical hernia Current Visit: Yes Status: Acute (11) Epigastric hernia Current Visit: Yes Status: Acute Cleared for Admission [facility] - Detox or Rehab [facility] Level of Care: Medically Managed Detox Regimen/Protocol: Librium S Breath Alcohol Content Breath Alcohol Content: 0.261 Urine Drug Screen - Results Drug Screen Negative: Yes Inpatient Rehab Admission - Rehab Decision to Admit Inpatient rehab admission?: No
[2018-06-20] MEDS ORDERED: MAGNESIUM HYDROX 2400MG/30ML ORAL SUSPENSION 30 ML CUP PO PRN (15:05)
[2018-06-20] MEDS ORDERED: P-EPHED 60MG/TRIPROLIDI 2.5MG TABLET PO PRN (15:05)
[2018-06-20] MEDS ORDERED: IBUPROFEN 400 MG TABLET (FP) PO PRN (15:05)
[2018-06-20] MEDS ORDERED: guaiFENesin/D-METHORPHAN HB 10 ML UNIT-DOSE CUPS PO PRN (15:05)
[2018-06-20] MEDS ORDERED: MAG HYDROX/AL HYDROX/SIMETH 30 ML UNIT-DOSE CUP PO PRN (15:05)
[2018-06-20] MEDS ORDERED: chlordiazePOXIDE HCL 25 MG CAPSULE PO PRN (15:05)
[2018-06-20] MEDS ORDERED: MENTHOL/PHENOL 1 EACH UD MM PRN (15:05)
[2018-06-20] MEDS ORDERED: MAGNESIUM CITRATE 300 ML BOTTLE PO PRN (15:05)
[2018-06-20] MEDS ORDERED: LOPERAMIDE HCL 2 MG CAPSULE PO PRN (15:05)
[2018-06-20] MEDS ORDERED: ACETAMINOPHEN 325 MG TABLET (FP) PO PRN (15:05)
[2018-06-20] MEDS ORDERED: hydrOXYzine PAMOATE 50 MG CAPSULE (FP) PO PRN (15:05)
[2018-06-20] MEDS: chlordiazePOXIDE HCL 25 MG CAPSULE PO SCH ×2 (16:56→22:25)
[2018-06-20] MEDS ORDERED: MELATONIN 5 MG TABLETS PO PRN (22:00)
[2018-06-20] MEDS: THIAMINE HCL 100 MG TABLET (FP) PO SCH (22:25)
[2018-06-21] MEDS: chlordiazePOXIDE HCL 25 MG CAPSULE PO SCH ×4 (05:25→22:46)
[2018-06-21] MEDS: PRENATAL VITAMINS W/ FOLIC ACID TABLET (FP) PO SCH (10:12)
[2018-06-21 10:45] LABS: HEMATOCRIT 38.1 % (35.4-49); HEMOGLOBIN 13.1 GM/dL (11.7-16.9); MCH 32.9 pg (25.7-33.7); MCHC 34.4 g/dl (32.0-35.9); MEAN CELL VOLUME 95.9 fl (80-96); MEAN PLT VOLUME 8.2 fl (7.5-11.1); PLATELET COUNT 248 K/MM3 (134-434); RBC 3.97 M/mm3 (4.00-5.60); RDW 14.5 % (11.9-15.9); WHITE BLOOD COUNT 5.3 K/mm3 (4.0-10.0)
[2018-06-21 11:44] LABS: ALBUMIN 3.9 g/dl (3.4-5.0); ALK PHOS 53 U/L (45-117); ANION GAP 10 MMOL/L (8-16); BILIRUBIN,TOTAL 0.5 mg/dL (0.2-1); BLOOD UREA NITROGEN 17 mg/dL (7-18); CALCIUM 8.4 mg/dL (8.5-10.1); CHLORIDE 109 mmol/L (98-107); CO2 21 mmol/L (21-32); CREATININE 1.3 mg/dL (0.55-1.3); GLUCOSE,RANDOM 93 mg/dL (74-106); SGOT/AST 63 U/L (15-37); SGPT/ALT 56 U/L (13-61); SODIUM 140 mmol/L (136-145); TOT PROT 7.4 g/dl (6.4-8.2)
[2018-06-21] MEDS ORDERED: WITCH HAZEL 50% (TUCKS) 40 PAD/JAR PAD TP PRN (11:51)
--- NOTE | 2018-06-21 14:12 | PN ---
S CIWA - CIWA Score Nausea/Vomitin-No Nausea/No Vomiting Muscle Tremors: None Anxiety: 2 Agitation: 2 Paroxysmal Sweats: 3 Orientation: 0-Oriented Tacttile Disturbances: 2-Mild Itch/Numbness/Burn Auditory Disturbances: 0-None Visual Disturbances: 3-Moderate Sensitivity Headache: 0-None Present CIWA-Ar Total Score: 12 S Progress Note (SOAP) Subjective: Diarrhea, Sweating, Nasal Congestion. Objective: PATIENT A & O X 3, OBSERVED AMBULATING ON UNIT. IN NO ACUTE DISTRESS. 06/21/18 14:08 Vital Signs Temperature 98.1 F 06/21/18 09:14 Pulse Rate 98 H 06/21/18 09:14 Respiratory Rate 18 06/21/18 09:14 Blood Pressure 135/76 06/21/18 09:14 O2 Sat by Pulse Oximetry (%) Laboratory Tests 06/21/18 06/21/18 06/21/18 06:24 06:24 06:24 WBC 5.3 RBC 3.97 L Hgb 13.1 Hct 38.1 MCV 95.9 MCH 32.9 MCHC 34.4 RDW 14.5 Plt Count 248 MPV 8.2 Sodium 140 Potassium 4.0 Chloride 109 H Carbon Dioxide 21 Anion Gap 10 BUN 17 Creatinine 1.3 Creat Clearance w eGFR 55.94 Random Glucose 93 Calcium 8.4 L Total Bilirubin 0.5 AST 63 H ALT 56 Alkaline Phosphatase 53 Total Protein 7.4 Albumin 3.9 RPR Titer Nonreactive LABS NOTED. Assessment: 06/21/18 14:09 WITHDRAWAL SYMPTOMS. Plan: CONTINUE DETOX. CONTINUE TO MONITOR BP (CLONIDINE PRN ORDERED FOR ELEVATED BP).
[2018-06-21] MEDS: cloNIDine HCL 0.1 MG TABLET PO PRN (14:18)
[2018-06-21] MEDS: ARTIFICIAL TEARS (POLYVINYL ALCOHOL) OPTH DROPS OU PRN (14:18)
[2018-06-21] MEDS: METHYL SALICYLATE/MENTHOL OINT 30 GM TUBE TP SCH ×2 (15:12→22:47)
[2018-06-21] MEDS: HYDROCORTISONE 0.5% TOPICAL CREAM 30 GM TUBE TP SCH ×2 (15:13→22:47)
[2018-06-21] MEDS: SODIUM CHLORIDE NASAL SPRAY 44 ML BOTTLE NS PRN (15:14)
[2018-06-21] MEDS: NAPROXEN 375 MG TABLET (FP) PO PRN ×2 (15:17→22:48)
[2018-06-21] MEDS: THIAMINE HCL 100 MG TABLET (FP) PO SCH (22:46)
[2018-06-22] MEDS: chlordiazePOXIDE HCL 25 MG CAPSULE PO SCH ×2 (05:22→10:09)
[2018-06-22] MEDS: PRENATAL VITAMINS W/ FOLIC ACID TABLET (FP) PO SCH (10:08)
--- NOTE | 2018-06-22 10:57 | PN ---
[facility] CIWA - CIWA Score Nausea/Vomitin Muscle Tremors: 2 Anxiety: 2 Agitation: 1-Slight > Activity Paroxysmal Sweats: 4-Forehead w/Sweat Beads Orientation: 0-Oriented Tacttile Disturbances: 2-Mild Itch/Numbness/Burn Auditory Disturbances: 0-None Visual Disturbances: 0-None Headache: 0-None Present CIWA-Ar Total Score: 13 [facility] Progress Note (SOAP) Subjective: interrupted sleep, drenched sweats, shakes, rt shoulder pain . Objective: 06/22/18 10:57 Vital Signs Temperature 100.6 F H 06/22/18 08:47 Pulse Rate 102 H 06/22/18 08:47 Respiratory Rate 18 06/22/18 08:47 Blood Pressure 138/83 06/22/18 08:47 O2 Sat by Pulse Oximetry (%) 06/22/18 10:58 pt aox3 in nad lying in bed , no sob , or cough rt shoulder tederness repeat temp.-97.5 Assessment: 06/22/18 10:59 withdrawal sx's low grade temp rt shoulder pain Plan: cont. detox increase fluids monitor temp. lidocaine patch rt shoulder
[2018-06-22] MEDS: NAPROXEN 375 MG TABLET (FP) PO PRN ×2 (11:01→22:30)
[2018-06-22] MEDS: BENZOCAINE 28 GM HEMORRHOIDAL OINTMENT PR PRN ×2 (11:02→22:31)
[2018-06-22] MEDS: HYDROCORTISONE 0.5% TOPICAL CREAM 30 GM TUBE TP SCH ×2 (11:03→22:31)
[2018-06-22] MEDS: METHYL SALICYLATE/MENTHOL OINT 30 GM TUBE TP SCH ×2 (11:03→22:31)
[2018-06-22] MEDS ORDERED: LIDOCAINE 5% TOPICAL PATCH TP ONE (12:00)
[2018-06-22] MEDS: chlordiazePOXIDE 5 MG CAPSULE PO SCH ×2 (18:37→22:30)
[2018-06-22] MEDS ORDERED: LIDOCAINE PATCH REMOVAL MC SCH (22:00)
[2018-06-22] MEDS: cloNIDine HCL 0.1 MG TABLET PO PRN (22:30)
[2018-06-22] MEDS: LIDOCAINE PATCH REMOVAL MC SCH (22:55)
[2018-06-22] MEDS: THIAMINE HCL 100 MG TABLET (FP) PO SCH (22:56)
[2018-06-23] MEDS: chlordiazePOXIDE 5 MG CAPSULE PO SCH ×2 (06:07→10:15)
[2018-06-23] MEDS: PRENATAL VITAMINS W/ FOLIC ACID TABLET (FP) PO SCH (10:15)
[2018-06-23] MEDS: NAPROXEN 375 MG TABLET (FP) PO PRN (10:16)
[2018-06-23] MEDS: SODIUM CHLORIDE NASAL SPRAY 44 ML BOTTLE NS PRN (10:16)
[2018-06-23] MEDS: LIDOCAINE 5% TOPICAL PATCH TP SCH (10:19)
[2018-06-23] MEDS: HYDROCORTISONE 0.5% TOPICAL CREAM 30 GM TUBE TP SCH ×2 (10:19→23:47)
[2018-06-23] MEDS: BENZOCAINE 28 GM HEMORRHOIDAL OINTMENT PR PRN (10:19)
[2018-06-23] MEDS: METHYL SALICYLATE/MENTHOL OINT 30 GM TUBE TP SCH ×2 (10:20→23:46)
[2018-06-23] MEDS: ARTIFICIAL TEARS (POLYVINYL ALCOHOL) OPTH DROPS OU PRN (10:20)
--- NOTE | 2018-06-23 11:46 | PN ---
[facility] Progress Note (SOAP) Subjective: PT C/O ANXIETY, SWEATS, DIARRHEA. Objective: 06/23/18 11:45 Vital Signs 06/23/18 06/23/18 06/23/18 06:00 07:00 09:55 Temperature 97.7 F 97.7 F Pulse Rate 67 83 100 H Respiratory 18 18 18 Rate Blood Pressure 170/94 145/93 148/81 Laboratory Tests 06/21/18 06/21/18 06/21/18 06:24 06:24 06:24 WBC 5.3 RBC 3.97 L Hgb 13.1 Hct 38.1 MCV 95.9 MCH 32.9 MCHC 34.4 RDW 14.5 Plt Count 248 MPV 8.2 Sodium 140 Potassium 4.0 Chloride 109 H Carbon Dioxide 21 Anion Gap 10 BUN 17 Creatinine 1.3 Creat Clearance w eGFR 55.94 Random Glucose 93 Calcium 8.4 L Total Bilirubin 0.5 AST 63 H ALT 56 Alkaline Phosphatase 53 Total Protein 7.4 Albumin 3.9 RPR Titer Nonreactive Assessment: 06/23/18 11:45 WITHDRAWAL SX Plan: CONTINUE DETOX IMODIUM PRN
[2018-06-23] MEDS: chlordiazePOXIDE HCL 10 MG CAPSULE PO SCH ×2 (19:06→23:47)
[2018-06-23] MEDS: THIAMINE HCL 100 MG TABLET (FP) PO SCH (23:47)
[2018-06-23] MEDS: LIDOCAINE PATCH REMOVAL MC SCH (23:47)
[2018-06-24] MEDS: chlordiazePOXIDE HCL 10 MG CAPSULE PO SCH ×2 (06:07→10:16)
[2018-06-24] MEDS: NAPROXEN 375 MG TABLET (FP) PO PRN (06:08)
[2018-06-24 09:35] VITALS: BP 134/93; PULSE 105; TEMP 98.1
[2018-06-24] MEDS: LIDOCAINE 5% TOPICAL PATCH TP SCH (10:16)
[2018-06-24] MEDS: METHYL SALICYLATE/MENTHOL OINT 30 GM TUBE TP SCH (10:16)
[2018-06-24] MEDS: ARTIFICIAL TEARS (POLYVINYL ALCOHOL) OPTH DROPS OU PRN (10:16)
[2018-06-24] MEDS: PRENATAL VITAMINS W/ FOLIC ACID TABLET (FP) PO SCH (10:16)
[2018-06-24] MEDS: BENZOCAINE 28 GM HEMORRHOIDAL OINTMENT PR PRN (10:17)
[2018-06-24] MEDS: HYDROCORTISONE 0.5% TOPICAL CREAM 30 GM TUBE TP SCH (10:17)
[2018-06-24] MEDS ORDERED: FLUTICASONE PROP 0.05% 16 GM NASAL SPRAY NS SCH (11:00)
[2018-06-24] MEDS: SODIUM CHLORIDE NASAL SPRAY 44 ML BOTTLE NS PRN (11:33)
--- NOTE | 2018-06-24 12:28 | DS ---
[facility] Detox Discharge Summary Admission Date: 06/20/18 Discharge Date: 06/24/18 - History Present History: Alcohol Dependence Additional Comments: Patient completed detox successfully. Patient is A/A/Ox3, in nad, vss, ambulatory. Patient accepted admission to [facility] rehab today. Ordered for flonase for allergic rhinitis as ocean spray not effective as per patient. Pertinent Past History: Allergic rhinitis PPD Positive Nicotine dependence HTN Hemorrhoid Alcohol dependence - Physical Exam Results Vital Signs: Vital Signs Temperature 98.1 F 06/24/18 09:34 Pulse Rate 105 H 06/24/18 09:34 Respiratory Rate 18 06/24/18 09:34 Blood Pressure 134/93 06/24/18 09:34 O2 Sat by Pulse Oximetry (%) Pertinent Admission Physical Exam Findings: Withdrawal symptoms Laboratory Tests 06/21/18 06/21/18 06/21/18 06:24 06:24 06:24 WBC 5.3 RBC 3.97 L Hgb 13.1 Hct 38.1 MCV 95.9 MCH 32.9 MCHC 34.4 RDW 14.5 Plt Count 248 MPV 8.2 Sodium 140 Potassium 4.0 Chloride 109 H Carbon Dioxide 21 Anion Gap 10 BUN 17 Creatinine 1.3 Creat Clearance w eGFR 55.94 Random Glucose 93 Calcium 8.4 L Total Bilirubin 0.5 AST 63 H ALT 56 Alkaline Phosphatase 53 Total Protein 7.4 Albumin 3.9 RPR Titer Nonreactive Labs reviewed: prerenal azotemia noted, encouraged PO water hydration - Treatment Hospital Course: Detox Protocol Followed, Detoxed Safely, Responded well, Discharged Condition Good, Rehab Referral Accepted - Medication Discharge Medications: Ambulatory Orders Hydrocortisone Acetate [Anusol Hc Suppository -] 25 mg RC HS #5 supp.rect Polyvinyl Alcohol [Artificial Tears] 1 drop OP TID #1 drops 10/31/17 Sodium Chloride Nasal Welda [Hunt Welda Nasal Welda -] 2 spray NS Q6H PRN #1 spray 10/31/17 Hydrocortisone 0.5% Cream [Hytone 0.5% Cream -] 1 applic TP DAILY 01/29/18 Naproxen [Naprosyn -] 500 mg PO BID 06/20/18 - Diagnosis (1) Acute prerenal azotemia Current Visit: Yes Status: Acute (2) Allergic rhinitis Current Visit: Yes Status: Acute (3) Alcohol dependence with uncomplicated intoxication Current Visit: Yes Status: Acute (4) Positive PPD Current Visit: Yes Status: Chronic (5) Nicotine dependence Current Visit: Yes Status: Chronic (6) Hemorrhoids Current Visit: Yes Status: Acute Qualifiers: Hemorrhoid type: unspecified Qualified Code(s): K64.9 - Unspecified hemorrhoids (7) Hypertension Current Visit: Yes Status: Chronic Qualifiers: Hypertension type: essential hypertension Qualified Code(s): I10 - Essential (primary) hypertension - AMA Did Patient Leave Against Medical Advice: No (Accepted admission to [facility])
== END 2018-06-24 12:30 | disposition other institution (70) | DRG 775 ==
LOC: YASAS 10:38 → Y6N 15:11
PROVIDERS: ADMIT Surgery; ATTEND Surgery
PROC: HZ2ZZZZ Detoxification Services for Substance Abuse Treatment (ICD-10-PCS; principal; 2018-06-20)
DX: F10.230 Alcohol dependence with withdrawal, uncomplicated (principal); F17.213 Nicotine dependence, cigarettes, with withdrawal; I10 Essential (primary) hypertension; J30.9 Allergic rhinitis, unspecified; K64.9 Unspecified hemorrhoids; R76.11 Nonspecific reaction to tuberculin skin test without active tuberculosis; R79.89 Other specified abnormal findings of blood chemistry; Z88.8 Allergy status to other drugs, medicaments and biological substances
CPT/HCPCS: 36415; 71045-TC-FY; 80053; 85027; 86593; J0735

== ENCOUNTER 2018-06-24 12:43 | Inpatient (IN) | payer OTHER ==
--- NOTE | 2018-06-24 14:14 | HP ---
[facility] Rehab Assess/Revision - Admission History Admitted to Rehab from: [facility] Date of Admission to Rehab: 06/24/2018 - Vital signs Vital Signs: 98.1, 105, 18, 134/93 - Findings Detox History & Physical reviewed: Yes Concur with findings: Yes Inpatient Rehab Admission - Rehab Decision to Admit Inpatient rehab admission?: Yes - Initial Determination Are CD services needed?: No Free of communicable disease: Yes Not in need of hospitalization: Yes - Rehab Admission Criteria Previous failed treatment: Yes Poor recovery environment: Yes Comorbidities: No Lacks judgement: Yes Patient is meeting Inpatient Rehab admission criteria:: Yes
[2018-06-24] MEDS ORDERED: MAGNESIUM CITRATE 300 ML BOTTLE PO PRN (14:22)
[2018-06-24] MEDS ORDERED: LOPERAMIDE HCL 2 MG CAPSULE PO PRN (14:22)
[2018-06-24] MEDS ORDERED: guaiFENesin/D-METHORPHAN HB 10 ML UNIT-DOSE CUPS PO PRN (14:22)
[2018-06-24] MEDS ORDERED: MAGNESIUM HYDROX 2400MG/30ML ORAL SUSPENSION 30 ML CUP PO PRN (14:22)
[2018-06-24] MEDS ORDERED: hydrOXYzine PAMOATE 50 MG CAPSULE (FP) PO PRN (14:22)
[2018-06-24] MEDS ORDERED: IBUPROFEN 400 MG TABLET (FP) PO PRN (14:22)
[2018-06-24] MEDS ORDERED: amLODIPine BESYLATE 5 MG TABLET (FP) PO ONE (14:24)
[2018-06-24] MEDS ORDERED: cloNIDine HCL 0.1 MG TABLET PO PRN (14:25)
[2018-06-24] MEDS: MENTHOL/PHENOL 1 EACH UD MM PRN (15:47)
[2018-06-24] MEDS ORDERED: WITCH HAZEL 50% (TUCKS) 40 PAD/JAR PAD TP PRN (21:00)
[2018-06-24] MEDS: FLUTICASONE PROP 0.05% 16 GM NASAL SPRAY NS SCH (21:59)
[2018-06-24] MEDS: METHYL SALICYLATE/MENTHOL OINT 30 GM TUBE TP SCH (21:59)
[2018-06-24] MEDS: HYDROCORTISONE 0.5% TOPICAL OINTMENT TUBE TP SCH (21:59)
[2018-06-24] MEDS: LIDOCAINE PATCH REMOVAL MC SCH (22:00)
[2018-06-24] MEDS ORDERED: MELATONIN 5 MG TABLETS PO PRN (22:00)
[2018-06-24] MEDS: THIAMINE HCL 100 MG TABLET (FP) PO SCH (22:00)
[2018-06-25] MEDS: PRENATAL VITAMINS W/ FOLIC ACID TABLET (FP) PO SCH (11:11)
[2018-06-25] MEDS: FLUTICASONE PROP 0.05% 16 GM NASAL SPRAY NS SCH ×2 (11:12→22:32)
[2018-06-25] MEDS: amLODIPine BESYLATE 5 MG TABLET (FP) PO SCH (11:12)
[2018-06-25] MEDS: METHYL SALICYLATE/MENTHOL OINT 30 GM TUBE TP SCH ×2 (11:12→22:32)
[2018-06-25] MEDS: ARTIFICIAL TEARS (POLYVINYL ALCOHOL) OPTH DROPS OU PRN (11:12)
[2018-06-25] MEDS: LIDOCAINE 5% TOPICAL PATCH TP SCH (11:13)
[2018-06-25] MEDS: HYDROCORTISONE 0.5% TOPICAL OINTMENT TUBE TP SCH ×2 (11:13→22:33)
[2018-06-25] MEDS: MENTHOL/PHENOL 1 EACH UD MM PRN (17:50)
[2018-06-25] MEDS: HYDROCORTISONE ACETATE 25 MG/SUPP.RECT RC PRN (22:07)
[2018-06-25] MEDS: NAPROXEN 375 MG TABLET (FP) PO PRN (22:08)
[2018-06-25] MEDS: THIAMINE HCL 100 MG TABLET (FP) PO SCH (22:08)
[2018-06-25] MEDS: LIDOCAINE PATCH REMOVAL MC SCH (22:09)
[2018-06-26] MEDS: PRENATAL VITAMINS W/ FOLIC ACID TABLET (FP) PO SCH (10:19)
[2018-06-26] MEDS: amLODIPine BESYLATE 5 MG TABLET (FP) PO SCH (10:19)
[2018-06-26] MEDS: LIDOCAINE 5% TOPICAL PATCH TP SCH (10:22)
[2018-06-26] MEDS: FLUTICASONE PROP 0.05% 16 GM NASAL SPRAY NS SCH ×2 (10:22→22:04)
[2018-06-26] MEDS ORDERED: PT OWN MED DRAWER 7, Y5N ONE ×2 (10:22→22:04)
[2018-06-26] MEDS: ARTIFICIAL TEARS (POLYVINYL ALCOHOL) OPTH DROPS OU PRN ×2 (10:22→14:48)
[2018-06-26] MEDS: HYDROCORTISONE 0.5% TOPICAL OINTMENT TUBE TP SCH ×2 (10:23→22:09)
[2018-06-26] MEDS: METHYL SALICYLATE/MENTHOL OINT 30 GM TUBE TP SCH ×2 (10:23→22:03)
[2018-06-26] MEDS: NAPROXEN 375 MG TABLET (FP) PO PRN ×2 (10:25→22:05)
--- NOTE | 2018-06-26 11:44 | PN ---
S Progress Note Note: PATIENT C/O FULLNESS TO RIGHT EAR WITH MUFFLED HEARING. PATIENT DENIES PAIN TO EARS AND HX OF EAR SURGERY. Vital Signs Temperature 97.3 F L 06/26/18 07:06 Pulse Rate 85 06/26/18 07:06 Respiratory Rate 20 06/26/18 07:06 Blood Pressure 161/75 06/26/18 07:06 O2 Sat by Pulse Oximetry (%) PE ALERT AND ORIENTED X 3 SKIN WARM AND DRY RIGHT EAR CANAL PATENT, TM INTACT-NO REDNESS OR SWELLING LEFT EAR CANAL WITH YELLOW BROWN CERUMEN, TM NOT VISIBLE A/P CERUMEN IMPACTION WILL START DEBROX DROPS TO AU BID X 7 DAYS CONTINUE TO MONITOR
[2018-06-26] MEDS: CARBAMIDE PEROXIDE 6.5% OTIC 15 ML BOTTLE AU SCH ×2 (14:48→22:03)
[2018-06-26] MEDS: LIDOCAINE PATCH REMOVAL MC SCH (22:04)
[2018-06-26] MEDS: THIAMINE HCL 100 MG TABLET (FP) PO SCH (22:05)
[2018-06-26] MEDS: HYDROCORTISONE ACETATE 25 MG/SUPP.RECT RC PRN (22:07)
[2018-06-26] MEDS: BENZOCAINE 28 GM HEMORRHOIDAL OINTMENT PR PRN (22:09)
[2018-06-27] MEDS ORDERED: PT OWN MED DRAWER 7, Y5N ONE ×5 (09:05→21:42)
[2018-06-27] MEDS: HYDROCORTISONE 0.5% TOPICAL OINTMENT TUBE TP SCH ×2 (10:27→21:42)
[2018-06-27] MEDS: CARBAMIDE PEROXIDE 6.5% OTIC 15 ML BOTTLE AU SCH ×2 (10:28→21:41)
[2018-06-27] MEDS: PRENATAL VITAMINS W/ FOLIC ACID TABLET (FP) PO SCH (10:28)
[2018-06-27] MEDS: FLUTICASONE PROP 0.05% 16 GM NASAL SPRAY NS SCH ×2 (10:28→21:41)
[2018-06-27] MEDS: amLODIPine BESYLATE 5 MG TABLET (FP) PO SCH (10:28)
[2018-06-27] MEDS: METHYL SALICYLATE/MENTHOL OINT 30 GM TUBE TP SCH ×2 (10:29→21:41)
[2018-06-27] MEDS: LIDOCAINE 5% TOPICAL PATCH TP SCH (10:29)
[2018-06-27] MEDS: NAPROXEN 375 MG TABLET (FP) PO PRN ×2 (10:30→21:40)
[2018-06-27] MEDS: ARTIFICIAL TEARS (POLYVINYL ALCOHOL) OPTH DROPS OU PRN ×2 (10:31→14:05)
[2018-06-27] MEDS: THIAMINE HCL 100 MG TABLET (FP) PO SCH (21:40)
[2018-06-27] MEDS: LIDOCAINE PATCH REMOVAL MC SCH (21:42)
[2018-06-27] MEDS: HYDROCORTISONE ACETATE 25 MG/SUPP.RECT RC PRN (21:43)
[2018-06-28] MEDS: NAPROXEN 375 MG TABLET (FP) PO PRN ×2 (10:33→21:47)
[2018-06-28] MEDS: amLODIPine BESYLATE 5 MG TABLET (FP) PO SCH (10:35)
[2018-06-28] MEDS: ARTIFICIAL TEARS (POLYVINYL ALCOHOL) OPTH DROPS OU PRN ×2 (10:35→14:27)
[2018-06-28] MEDS: CARBAMIDE PEROXIDE 6.5% OTIC 15 ML BOTTLE AU SCH ×2 (10:35→21:50)
[2018-06-28] MEDS: HYDROCORTISONE 0.5% TOPICAL OINTMENT TUBE TP SCH ×2 (10:36→21:50)
[2018-06-28] MEDS: METHYL SALICYLATE/MENTHOL OINT 30 GM TUBE TP SCH ×2 (10:36→21:49)
[2018-06-28] MEDS: LIDOCAINE 5% TOPICAL PATCH TP SCH (10:36)
[2018-06-28] MEDS: PRENATAL VITAMINS W/ FOLIC ACID TABLET (FP) PO SCH (10:36)
[2018-06-28] MEDS: FLUTICASONE PROP 0.05% 16 GM NASAL SPRAY NS SCH ×2 (10:36→21:49)
[2018-06-28] MEDS ORDERED: diphenhydrAMINE HCL 25 MG CAPSULE (FP) PO PRN (16:54)
[2018-06-28] MEDS: THIAMINE HCL 100 MG TABLET (FP) PO SCH (21:46)
[2018-06-28] MEDS: HYDROCORTISONE ACETATE 25 MG/SUPP.RECT RC PRN (21:47)
[2018-06-28] MEDS ORDERED: PT OWN MED DRAWER 7, Y5N ONE (21:49)
[2018-06-28] MEDS: LIDOCAINE PATCH REMOVAL MC SCH (21:50)
[2018-06-28] MEDS: BENZOCAINE 28 GM HEMORRHOIDAL OINTMENT PR PRN (21:51)
[2018-06-29] MEDS: MAG HYDROX/AL HYDROX/SIMETH 30 ML UNIT-DOSE CUP PO PRN (08:57)
[2018-06-29] MEDS: PRENATAL VITAMINS W/ FOLIC ACID TABLET (FP) PO SCH (10:16)
[2018-06-29] MEDS: FLUTICASONE PROP 0.05% 16 GM NASAL SPRAY NS SCH ×2 (10:16→21:17)
[2018-06-29] MEDS: NAPROXEN 375 MG TABLET (FP) PO PRN ×2 (10:16→21:15)
[2018-06-29] MEDS: amLODIPine BESYLATE 5 MG TABLET (FP) PO SCH (10:16)
[2018-06-29] MEDS: ARTIFICIAL TEARS (POLYVINYL ALCOHOL) OPTH DROPS OU PRN ×2 (10:17→14:01)
[2018-06-29] MEDS: BENZOCAINE 28 GM HEMORRHOIDAL OINTMENT PR PRN ×2 (10:17→21:19)
[2018-06-29] MEDS: HYDROCORTISONE 0.5% TOPICAL OINTMENT TUBE TP SCH ×2 (10:17→21:17)
[2018-06-29] MEDS: METHYL SALICYLATE/MENTHOL OINT 30 GM TUBE TP SCH ×2 (10:18→21:16)
[2018-06-29] MEDS: LIDOCAINE 5% TOPICAL PATCH TP SCH (10:18)
[2018-06-29] MEDS: CARBAMIDE PEROXIDE 6.5% OTIC 15 ML BOTTLE AU SCH ×2 (10:18→21:17)
[2018-06-29] MEDS ORDERED: PT OWN MED DRAWER 7, Y5N ONE ×3 (14:03→21:20)
[2018-06-29] MEDS: THIAMINE HCL 100 MG TABLET (FP) PO SCH (21:15)
[2018-06-29] MEDS: HYDROCORTISONE ACETATE 25 MG/SUPP.RECT RC PRN (21:18)
[2018-06-29] MEDS: LIDOCAINE PATCH REMOVAL MC SCH (21:18)
[2018-06-30] MEDS: FLUTICASONE PROP 0.05% 16 GM NASAL SPRAY NS SCH ×2 (10:19→21:46)
[2018-06-30] MEDS: ARTIFICIAL TEARS (POLYVINYL ALCOHOL) OPTH DROPS OU PRN (10:19)
[2018-06-30] MEDS: PRENATAL VITAMINS W/ FOLIC ACID TABLET (FP) PO SCH (10:19)
[2018-06-30] MEDS: amLODIPine BESYLATE 5 MG TABLET (FP) PO SCH (10:19)
[2018-06-30] MEDS: NAPROXEN 375 MG TABLET (FP) PO PRN ×2 (10:21→21:41)
[2018-06-30] MEDS ORDERED: PT OWN MED DRAWER 7, Y5N ONE ×4 (10:22→21:44)
[2018-06-30] MEDS: CARBAMIDE PEROXIDE 6.5% OTIC 15 ML BOTTLE AU SCH ×2 (10:22→21:46)
[2018-06-30] MEDS: HYDROCORTISONE 0.5% TOPICAL OINTMENT TUBE TP SCH ×2 (10:22→21:46)
[2018-06-30] MEDS: LIDOCAINE 5% TOPICAL PATCH TP SCH (10:23)
[2018-06-30] MEDS: METHYL SALICYLATE/MENTHOL OINT 30 GM TUBE TP SCH ×2 (10:23→21:46)
[2018-06-30] MEDS: MENTHOL/PHENOL 1 EACH UD MM PRN (17:01)
[2018-06-30] MEDS: HYDROCORTISONE ACETATE 25 MG/SUPP.RECT RC PRN (21:41)
[2018-06-30] MEDS: THIAMINE HCL 100 MG TABLET (FP) PO SCH (21:45)
[2018-06-30] MEDS: LIDOCAINE PATCH REMOVAL MC SCH (21:46)
[2018-06-30] MEDS: BENZOCAINE 28 GM HEMORRHOIDAL OINTMENT PR PRN (21:47)
[2018-06-30] MEDS: MAG HYDROX/AL HYDROX/SIMETH 30 ML UNIT-DOSE CUP PO PRN (23:51)
[2018-07-01] MEDS: MAG HYDROX/AL HYDROX/SIMETH 30 ML UNIT-DOSE CUP PO PRN (08:47)
[2018-07-01] MEDS: CARBAMIDE PEROXIDE 6.5% OTIC 15 ML BOTTLE AU SCH ×2 (09:50→22:07)
[2018-07-01] MEDS: PRENATAL VITAMINS W/ FOLIC ACID TABLET (FP) PO SCH (09:50)
[2018-07-01] MEDS: NAPROXEN 375 MG TABLET (FP) PO PRN ×2 (09:50→22:05)
[2018-07-01] MEDS: ARTIFICIAL TEARS (POLYVINYL ALCOHOL) OPTH DROPS OU PRN (09:50)
[2018-07-01] MEDS: SODIUM CHLORIDE NASAL SPRAY 44 ML BOTTLE NS PRN (09:50)
[2018-07-01] MEDS: LIDOCAINE 5% TOPICAL PATCH TP SCH (09:51)
[2018-07-01] MEDS: amLODIPine BESYLATE 5 MG TABLET (FP) PO SCH (09:51)
[2018-07-01] MEDS: BENZOCAINE 28 GM HEMORRHOIDAL OINTMENT PR PRN (09:52)
[2018-07-01] MEDS: HYDROCORTISONE 0.5% TOPICAL OINTMENT TUBE TP SCH (09:52)
[2018-07-01] MEDS: FLUTICASONE PROP 0.05% 16 GM NASAL SPRAY NS SCH ×2 (09:53→22:07)
[2018-07-01] MEDS ORDERED: PT OWN MED DRAWER 7, Y5N ONE ×3 (09:54→22:14)
[2018-07-01] MEDS: METHYL SALICYLATE/MENTHOL OINT 30 GM TUBE TP SCH ×2 (10:22→22:07)
[2018-07-01] MEDS: ACETAMINOPHEN 325 MG TABLET (FP) PO PRN (14:50)
[2018-07-01] MEDS: THIAMINE HCL 100 MG TABLET (FP) PO SCH (22:05)
[2018-07-01] MEDS: HYDROCORTISONE ACETATE 25 MG/SUPP.RECT RC PRN (22:06)
[2018-07-01] MEDS: LIDOCAINE PATCH REMOVAL MC SCH (22:08)
[2018-07-02] MEDS ORDERED: PT OWN MED DRAWER 7, Y5N ONE ×3 (09:24→20:11)
--- NOTE | 2018-07-02 10:04 | PN ---
[facility] Progress Note Note: PATIENT SEEN FOR C/O RASH AND ITCHING BEHIND LEFT KNEE. ALSO REQUESTED ABDOMINAL BINDER FOR SUPPORT OF ABDOMINAL HERNIA. PATIENT STATES HIS PERSONAL BINDER IS WORN AND NOT EFFECTIVE. PATIENT DENIES ABDOMINAL PAIN, N/V/D AND FEVER. Vital Signs Temperature 97.4 F L 07/01/18 06:58 Pulse Rate 84 07/02/18 07:05 Respiratory Rate 18 07/02/18 07:05 Blood Pressure 154/94 07/02/18 07:05 O2 Sat by Pulse Oximetry (%) PE: ALERT AND ORIENTED X 3 SKIN WARM AND DRY. + DRY, SMALL SCALY PATCH BEHIND LEFT KNEE, NO OPEN AREAS GI SOFT, NT, ND, +HERNIA MID ABDOMINAL AREA EXT FULL ROM, AMB AD RAQUEL, NO EDEMA A/P: HX OF HERNIA ECZEMA WILL ORDER ABDOMINAL BINDER CLOTRIMAZOLE OINTMENT BID TO LEFT KNEE RASH MONITOR CLINICALLY
[2018-07-02] MEDS: PRENATAL VITAMINS W/ FOLIC ACID TABLET (FP) PO SCH (10:17)
[2018-07-02] MEDS: SODIUM CHLORIDE NASAL SPRAY 44 ML BOTTLE NS PRN (10:17)
[2018-07-02] MEDS: LIDOCAINE 5% TOPICAL PATCH TP SCH (10:17)
[2018-07-02] MEDS: amLODIPine BESYLATE 5 MG TABLET (FP) PO SCH (10:17)
[2018-07-02] MEDS: FLUTICASONE PROP 0.05% 16 GM NASAL SPRAY NS SCH ×2 (10:18→21:26)
[2018-07-02] MEDS: NAPROXEN 375 MG TABLET (FP) PO PRN ×2 (10:18→21:25)
[2018-07-02] MEDS: METHYL SALICYLATE/MENTHOL OINT 30 GM TUBE TP SCH ×2 (10:22→21:30)
[2018-07-02] MEDS: CARBAMIDE PEROXIDE 6.5% OTIC 15 ML BOTTLE AU SCH ×2 (10:22→21:26)
[2018-07-02] MEDS: MENTHOL/PHENOL 1 EACH UD MM PRN (10:40)
[2018-07-02] MEDS: MAG HYDROX/AL HYDROX/SIMETH 30 ML UNIT-DOSE CUP PO PRN (11:04)
[2018-07-02] MEDS: CLOTRIMAZOLE/BETAMET DIPROP 15 GM TUBE TP SCH ×2 (15:32→21:27)
[2018-07-02] MEDS: THIAMINE HCL 100 MG TABLET (FP) PO SCH (21:25)
[2018-07-02] MEDS: LIDOCAINE PATCH REMOVAL MC SCH (21:27)
[2018-07-02] MEDS: BENZOCAINE 28 GM HEMORRHOIDAL OINTMENT PR PRN (21:28)
[2018-07-02] MEDS: HYDROCORTISONE ACETATE 25 MG/SUPP.RECT RC PRN (21:29)
[2018-07-03] MEDS: MAG HYDROX/AL HYDROX/SIMETH 30 ML UNIT-DOSE CUP PO PRN (08:25)
[2018-07-03] MEDS: MENTHOL/PHENOL 1 EACH UD MM PRN (08:26)
[2018-07-03] MEDS: CLOTRIMAZOLE/BETAMET DIPROP 15 GM TUBE TP SCH ×2 (10:04→21:13)
[2018-07-03] MEDS: ARTIFICIAL TEARS (POLYVINYL ALCOHOL) OPTH DROPS OU PRN (10:04)
[2018-07-03] MEDS: FLUTICASONE PROP 0.05% 16 GM NASAL SPRAY NS SCH ×2 (10:04→21:12)
[2018-07-03] MEDS: LIDOCAINE 5% TOPICAL PATCH TP SCH (10:05)
[2018-07-03] MEDS: amLODIPine BESYLATE 5 MG TABLET (FP) PO SCH (10:05)
[2018-07-03] MEDS: PRENATAL VITAMINS W/ FOLIC ACID TABLET (FP) PO SCH (10:05)
[2018-07-03] MEDS: CARBAMIDE PEROXIDE 6.5% OTIC 15 ML BOTTLE AU SCH (10:05)
[2018-07-03] MEDS: METHYL SALICYLATE/MENTHOL OINT 30 GM TUBE TP SCH ×2 (10:05→21:12)
[2018-07-03] MEDS: NAPROXEN 375 MG TABLET (FP) PO PRN ×2 (10:06→21:10)
[2018-07-03] MEDS: LIDOCAINE PATCH REMOVAL MC SCH (21:10)
[2018-07-03] MEDS: THIAMINE HCL 100 MG TABLET (FP) PO SCH (21:10)
[2018-07-03] MEDS: HYDROCORTISONE ACETATE 25 MG/SUPP.RECT RC PRN (21:11)
[2018-07-03] MEDS: BENZOCAINE 28 GM HEMORRHOIDAL OINTMENT PR PRN (21:14)
[2018-07-04] MEDS: MAG HYDROX/AL HYDROX/SIMETH 30 ML UNIT-DOSE CUP PO PRN (09:07)
[2018-07-04] MEDS: LIDOCAINE 5% TOPICAL PATCH TP SCH (09:08)
[2018-07-04] MEDS: FLUTICASONE PROP 0.05% 16 GM NASAL SPRAY NS SCH ×2 (09:08→21:11)
[2018-07-04] MEDS: amLODIPine BESYLATE 5 MG TABLET (FP) PO SCH (09:08)
[2018-07-04] MEDS: PRENATAL VITAMINS W/ FOLIC ACID TABLET (FP) PO SCH (09:08)
[2018-07-04] MEDS: NAPROXEN 375 MG TABLET (FP) PO PRN ×2 (09:09→18:25)
[2018-07-04] MEDS ORDERED: PT OWN MED DRAWER 7, Y5N ONE ×2 (09:14→15:59)
[2018-07-04] MEDS: ARTIFICIAL TEARS (POLYVINYL ALCOHOL) OPTH DROPS OU PRN (09:15)
[2018-07-04] MEDS: METHYL SALICYLATE/MENTHOL OINT 30 GM TUBE TP SCH ×2 (10:23→21:10)
[2018-07-04] MEDS: CLOTRIMAZOLE/BETAMET DIPROP 15 GM TUBE TP SCH ×2 (10:23→21:11)
[2018-07-04] MEDS ORDERED: COLLOIDAL OATMEAL 1 BAR EACH TP PRN (10:31)
[2018-07-04] MEDS: ACETAMINOPHEN 325 MG TABLET (FP) PO PRN ×2 (15:41→21:12)
[2018-07-04] MEDS: P-EPHED 60MG/TRIPROLIDI 2.5MG TABLET PO PRN (18:23)
[2018-07-04] MEDS: MENTHOL/PHENOL 1 EACH UD MM PRN (18:24)
[2018-07-04] MEDS: LIDOCAINE PATCH REMOVAL MC SCH (21:11)
[2018-07-04] MEDS: HYDROCORTISONE ACETATE 25 MG/SUPP.RECT RC PRN (21:12)
[2018-07-04] MEDS: THIAMINE HCL 100 MG TABLET (FP) PO SCH (21:13)
[2018-07-05] MEDS: PRENATAL VITAMINS W/ FOLIC ACID TABLET (FP) PO SCH (09:56)
[2018-07-05] MEDS: ARTIFICIAL TEARS (POLYVINYL ALCOHOL) OPTH DROPS OU PRN (09:57)
[2018-07-05] MEDS: amLODIPine BESYLATE 5 MG TABLET (FP) PO SCH (09:57)
[2018-07-05] MEDS: NAPROXEN 375 MG TABLET (FP) PO PRN ×2 (09:57→21:20)
[2018-07-05] MEDS: HYDROCORTISONE ACETATE 25 MG/SUPP.RECT RC PRN ×2 (09:58→21:20)
[2018-07-05] MEDS: BENZOCAINE 28 GM HEMORRHOIDAL OINTMENT PR PRN (09:58)
[2018-07-05] MEDS: SODIUM CHLORIDE NASAL SPRAY 44 ML BOTTLE NS PRN (09:58)
[2018-07-05] MEDS ORDERED: PT OWN MED DRAWER 7, Y5N ONE ×2 (09:59→10:02)
[2018-07-05] MEDS: FLUTICASONE PROP 0.05% 16 GM NASAL SPRAY NS SCH ×2 (09:59→21:21)
[2018-07-05] MEDS: LIDOCAINE 5% TOPICAL PATCH TP SCH (09:59)
[2018-07-05] MEDS: CLOTRIMAZOLE/BETAMET DIPROP 15 GM TUBE TP SCH ×2 (10:01→21:22)
[2018-07-05] MEDS: METHYL SALICYLATE/MENTHOL OINT 30 GM TUBE TP SCH ×2 (10:01→21:20)
--- NOTE | 2018-07-05 11:55 | PN ---
S Progress Note (SOAP) Subjective: Reporting symptoms of a cold, sneezing, cough, body aches.Stuffy nose. Chills, did not get FLU vaccine this year. Using cepacol, has taken robitussin for the cough. Objective: eyes are swollen, throat clear, nares, clear, sinus non-tender. HR-s1, s2 audible, Lungs with wheezes that clear with cough. 07/05/18 11:53 07/05/18 11:58 07/05/18 12:00 Vital Signs Period Temp Pulse Resp BP Sys/Laurent Pulse Ox Last 24 Hr 97.9 F 85-103 18-20 133-156/93-96 Assessment: 07/05/18 11:54 Upper Respiratory Infection Plan: Rest, increase fluids,taken nasal spray, benadryl, tylenol, and robitussin as needed.
[2018-07-05] MEDS: MAG HYDROX/AL HYDROX/SIMETH 30 ML UNIT-DOSE CUP PO PRN (15:59)
[2018-07-05] MEDS: THIAMINE HCL 100 MG TABLET (FP) PO SCH (21:20)
[2018-07-05] MEDS: LIDOCAINE PATCH REMOVAL MC SCH (21:22)
[2018-07-06] MEDS: PRENATAL VITAMINS W/ FOLIC ACID TABLET (FP) PO SCH (09:32)
[2018-07-06] MEDS: ARTIFICIAL TEARS (POLYVINYL ALCOHOL) OPTH DROPS OU PRN (09:32)
[2018-07-06] MEDS: LIDOCAINE 5% TOPICAL PATCH TP SCH (09:32)
[2018-07-06] MEDS: FLUTICASONE PROP 0.05% 16 GM NASAL SPRAY NS SCH ×2 (09:32→23:25)
[2018-07-06] MEDS: amLODIPine BESYLATE 5 MG TABLET (FP) PO SCH (09:32)
[2018-07-06] MEDS: NAPROXEN 375 MG TABLET (FP) PO PRN (09:33)
[2018-07-06] MEDS: CLOTRIMAZOLE/BETAMET DIPROP 15 GM TUBE TP SCH ×2 (10:59→23:25)
[2018-07-06] MEDS: METHYL SALICYLATE/MENTHOL OINT 30 GM TUBE TP SCH ×2 (10:59→23:25)
[2018-07-06] MEDS: MAG HYDROX/AL HYDROX/SIMETH 30 ML UNIT-DOSE CUP PO PRN (11:14)
--- NOTE | 2018-07-06 13:53 | CONSULT ---
[facility] Psychiatric Consult - Data Date of interview: 07/06/18 Admission source: Identifying data: Mr Salvador is a 63 years old single Black male, unemployed with no source of income, homeless seeking inpatient rehab treatment for alcohol and cocaine Substance Abuse History: Reports history of alcohol and cocaine use. He started drinking alcohol at age 19, consumes 3 pints of vodka & 4x 22oz of beer daily. Last drank on 06/20/18. He started using cocaine at age 24, consumes 2 grams daily. Last used on 06/16/18. Refer to addiction counselor's summary for further information Medical History: Significant for hypertension, GERD and a history of treatment for gonorrhea. Smokes 10 cigarettes daily Psychiatric History: Denies history of previous psychiatric treatment Physical/Sexual Abuse/Trauma History: Patient denies history of sexual, physical and verbal abuse as DV relationship. No service Additional Comment: Reports history of approximately of 3-7 previous misdemeanor arrests. Denies being on probation Mental Status Exam - Mental Status Exam Alert and Oriented to: Time, Place, Person Cognitive Function: Fair Patient Appearance: Well Groomed Mood: Anxious Affect: Appropriate Patient Behavior: Cooperative Speech Pattern: Clear Voice Loudness: Normal Thought Process: Intact, Goal Oriented Thought Disorder: Not Present Hallucinations: Denies Suicidal Ideation: Denies Homicidal Ideation: Denies Insight/Judgement: Fair Sleep: Poorly Appetite: Fair Muscle strength/Tone: Normal Gait/Station: Normal Psychiatric Findings - Problem List ([place] 1, 2,3) (1) Substance-induced anxiety disorder Current Visit: Yes Status: Acute (2) Substance-induced sleep disorder Current Visit: Yes Status: Acute (3) Alcohol dependence Current Visit: No Status: Acute (4) Cocaine dependence Current Visit: No Status: Acute Qualifiers: Substance use status: uncomplicated Qualified Code(s): F14.20 - Cocaine dependence, uncomplicated (5) Nicotine dependence Current Visit: No Status: Chronic (6) Hypertension Current Visit: No Status: Chronic Qualifiers: Hypertension type: essential hypertension Qualified Code(s): I10 - Essential (primary) hypertension (7) Positive PPD Current Visit: No Status: Chronic - Initial Treatment Plan Initial Treatment Plan: Continue inpatient rehabilitation
[2018-07-06] MEDS: ACETAMINOPHEN 325 MG TABLET (FP) PO PRN (15:16)
[2018-07-06] MEDS: LIDOCAINE PATCH REMOVAL MC SCH (23:25)
[2018-07-06] MEDS: THIAMINE HCL 100 MG TABLET (FP) PO SCH (23:26)
[2018-07-07] MEDS: MAG HYDROX/AL HYDROX/SIMETH 30 ML UNIT-DOSE CUP PO PRN ×2 (08:31→21:49)
[2018-07-07] MEDS: FLUTICASONE PROP 0.05% 16 GM NASAL SPRAY NS SCH ×2 (09:45→21:45)
[2018-07-07] MEDS: PRENATAL VITAMINS W/ FOLIC ACID TABLET (FP) PO SCH (09:45)
[2018-07-07] MEDS: amLODIPine BESYLATE 5 MG TABLET (FP) PO SCH (09:45)
[2018-07-07] MEDS: NAPROXEN 375 MG TABLET (FP) PO PRN (09:46)
[2018-07-07] MEDS: ARTIFICIAL TEARS (POLYVINYL ALCOHOL) OPTH DROPS OU PRN (09:46)
[2018-07-07] MEDS: LIDOCAINE 5% TOPICAL PATCH TP SCH (09:46)
[2018-07-07] MEDS: METHYL SALICYLATE/MENTHOL OINT 30 GM TUBE TP SCH ×2 (09:47→21:44)
[2018-07-07] MEDS: CLOTRIMAZOLE/BETAMET DIPROP 15 GM TUBE TP SCH ×2 (09:47→21:45)
[2018-07-07] MEDS: SODIUM CHLORIDE NASAL SPRAY 44 ML BOTTLE NS PRN (10:57)
[2018-07-07] MEDS: P-EPHED 60MG/TRIPROLIDI 2.5MG TABLET PO PRN (10:57)
[2018-07-07] MEDS: ACETAMINOPHEN 325 MG TABLET (FP) PO PRN (17:20)
[2018-07-07] MEDS: THIAMINE HCL 100 MG TABLET (FP) PO SCH (21:45)
[2018-07-07] MEDS: LIDOCAINE PATCH REMOVAL MC SCH (21:45)
[2018-07-07] MEDS: HYDROCORTISONE ACETATE 25 MG/SUPP.RECT RC PRN (21:47)
[2018-07-08] MEDS: PRENATAL VITAMINS W/ FOLIC ACID TABLET (FP) PO SCH (09:43)
[2018-07-08] MEDS: amLODIPine BESYLATE 5 MG TABLET (FP) PO SCH (09:43)
[2018-07-08] MEDS: NAPROXEN 375 MG TABLET (FP) PO PRN ×2 (09:44→21:48)
[2018-07-08] MEDS: CLOTRIMAZOLE/BETAMET DIPROP 15 GM TUBE TP SCH ×2 (09:44→21:47)
[2018-07-08] MEDS: BENZOCAINE 28 GM HEMORRHOIDAL OINTMENT PR PRN (09:47)
[2018-07-08] MEDS: FLUTICASONE PROP 0.05% 16 GM NASAL SPRAY NS SCH ×2 (09:47→21:46)
[2018-07-08] MEDS: LIDOCAINE 5% TOPICAL PATCH TP SCH (09:48)
[2018-07-08] MEDS: ARTIFICIAL TEARS (POLYVINYL ALCOHOL) OPTH DROPS OU PRN ×2 (09:48→13:49)
[2018-07-08] MEDS: METHYL SALICYLATE/MENTHOL OINT 30 GM TUBE TP SCH ×2 (10:21→21:46)
[2018-07-08] MEDS: SODIUM CHLORIDE NASAL SPRAY 44 ML BOTTLE NS PRN (13:49)
[2018-07-08] MEDS: ACETAMINOPHEN 325 MG TABLET (FP) PO PRN (16:33)
[2018-07-08] MEDS: THIAMINE HCL 100 MG TABLET (FP) PO SCH (21:45)
[2018-07-08] MEDS: LIDOCAINE PATCH REMOVAL MC SCH (21:45)
[2018-07-08] MEDS: HYDROCORTISONE ACETATE 25 MG/SUPP.RECT RC PRN (21:48)
[2018-07-09] MEDS: MAG HYDROX/AL HYDROX/SIMETH 30 ML UNIT-DOSE CUP PO PRN (08:29)
[2018-07-09] MEDS: FLUTICASONE PROP 0.05% 16 GM NASAL SPRAY NS SCH ×2 (10:19→21:44)
[2018-07-09] MEDS: amLODIPine BESYLATE 5 MG TABLET (FP) PO SCH (10:19)
[2018-07-09] MEDS: PRENATAL VITAMINS W/ FOLIC ACID TABLET (FP) PO SCH (10:19)
[2018-07-09] MEDS: NAPROXEN 375 MG TABLET (FP) PO PRN (10:19)
[2018-07-09] MEDS: ARTIFICIAL TEARS (POLYVINYL ALCOHOL) OPTH DROPS OU PRN ×2 (10:20→13:55)
[2018-07-09] MEDS: HYDROCORTISONE ACETATE 25 MG/SUPP.RECT RC PRN ×2 (10:20→21:42)
[2018-07-09] MEDS: BENZOCAINE 28 GM HEMORRHOIDAL OINTMENT PR PRN (10:21)
[2018-07-09] MEDS: LIDOCAINE 5% TOPICAL PATCH TP SCH (10:22)
[2018-07-09] MEDS: METHYL SALICYLATE/MENTHOL OINT 30 GM TUBE TP SCH ×2 (10:23→21:44)
[2018-07-09] MEDS: CLOTRIMAZOLE/BETAMET DIPROP 15 GM TUBE TP SCH ×2 (10:23→21:45)
[2018-07-09] MEDS: NAPROXEN 500 MG TABLET (FP) PO PRN (21:42)
[2018-07-09] MEDS: THIAMINE HCL 100 MG TABLET (FP) PO SCH (21:45)
[2018-07-09] MEDS: LIDOCAINE PATCH REMOVAL MC SCH (21:45)
[2018-07-10] MEDS: FLUTICASONE PROP 0.05% 16 GM NASAL SPRAY NS SCH ×2 (11:02→21:19)
[2018-07-10] MEDS: NAPROXEN 500 MG TABLET (FP) PO PRN ×2 (11:02→21:17)
[2018-07-10] MEDS: CLOTRIMAZOLE/BETAMET DIPROP 15 GM TUBE TP SCH ×2 (11:02→21:36)
[2018-07-10] MEDS: amLODIPine BESYLATE 5 MG TABLET (FP) PO SCH (11:02)
[2018-07-10] MEDS: PRENATAL VITAMINS W/ FOLIC ACID TABLET (FP) PO SCH (11:02)
[2018-07-10] MEDS: LIDOCAINE 5% TOPICAL PATCH TP SCH (11:03)
[2018-07-10] MEDS: SODIUM CHLORIDE NASAL SPRAY 44 ML BOTTLE NS PRN (11:03)
[2018-07-10] MEDS: METHYL SALICYLATE/MENTHOL OINT 30 GM TUBE TP SCH ×2 (11:03→21:17)
[2018-07-10] MEDS: ACETAMINOPHEN 325 MG TABLET (FP) PO PRN (16:42)
[2018-07-10] MEDS: THIAMINE HCL 100 MG TABLET (FP) PO SCH (21:16)
[2018-07-10] MEDS: HYDROCORTISONE ACETATE 25 MG/SUPP.RECT RC PRN (21:18)
[2018-07-10] MEDS: LIDOCAINE PATCH REMOVAL MC SCH (21:18)
[2018-07-11] MEDS: METHYL SALICYLATE/MENTHOL OINT 30 GM TUBE TP SCH ×2 (09:39→21:34)
[2018-07-11] MEDS: amLODIPine BESYLATE 5 MG TABLET (FP) PO SCH (09:39)
[2018-07-11] MEDS: LIDOCAINE 5% TOPICAL PATCH TP SCH (09:39)
[2018-07-11] MEDS: ARTIFICIAL TEARS (POLYVINYL ALCOHOL) OPTH DROPS OU PRN (09:39)
[2018-07-11] MEDS: PRENATAL VITAMINS W/ FOLIC ACID TABLET (FP) PO SCH (09:39)
[2018-07-11] MEDS: FLUTICASONE PROP 0.05% 16 GM NASAL SPRAY NS SCH ×2 (09:39→21:34)
[2018-07-11] MEDS: CLOTRIMAZOLE/BETAMET DIPROP 15 GM TUBE TP SCH ×2 (09:40→21:35)
[2018-07-11] MEDS: NAPROXEN 500 MG TABLET (FP) PO PRN ×2 (09:40→21:34)
[2018-07-11] MEDS: BENZOCAINE 28 GM HEMORRHOIDAL OINTMENT PR PRN (09:42)
[2018-07-11] MEDS: MAG HYDROX/AL HYDROX/SIMETH 30 ML UNIT-DOSE CUP PO PRN (14:33)
[2018-07-11] MEDS: THIAMINE HCL 100 MG TABLET (FP) PO SCH (21:34)
[2018-07-11] MEDS: HYDROCORTISONE ACETATE 25 MG/SUPP.RECT RC PRN (21:34)
[2018-07-11] MEDS: LIDOCAINE PATCH REMOVAL MC SCH (21:34)
[2018-07-12] MEDS: FLUTICASONE PROP 0.05% 16 GM NASAL SPRAY NS SCH ×2 (09:36→21:50)
[2018-07-12] MEDS: MAG HYDROX/AL HYDROX/SIMETH 30 ML UNIT-DOSE CUP PO PRN (09:37)
[2018-07-12] MEDS: PRENATAL VITAMINS W/ FOLIC ACID TABLET (FP) PO SCH (09:37)
[2018-07-12] MEDS: SODIUM CHLORIDE NASAL SPRAY 44 ML BOTTLE NS PRN (09:37)
[2018-07-12] MEDS: ARTIFICIAL TEARS (POLYVINYL ALCOHOL) OPTH DROPS OU PRN (09:37)
[2018-07-12] MEDS: NAPROXEN 500 MG TABLET (FP) PO PRN ×2 (09:37→21:51)
[2018-07-12] MEDS: LIDOCAINE 5% TOPICAL PATCH TP SCH (09:37)
[2018-07-12] MEDS: METHYL SALICYLATE/MENTHOL OINT 30 GM TUBE TP SCH ×2 (09:37→21:50)
[2018-07-12] MEDS: amLODIPine BESYLATE 5 MG TABLET (FP) PO SCH (09:37)
[2018-07-12] MEDS: CLOTRIMAZOLE/BETAMET DIPROP 15 GM TUBE TP SCH ×2 (09:38→21:52)
[2018-07-12] MEDS ORDERED: PT OWN MED DRAWER 7, Y5N ONE (10:36)
--- NOTE | 2018-07-12 15:39 | PN ---
[facility] Progress Note Note: Client to be discharged tomorrow, states that he is going back to [facility] for aftercare and primary care.
[2018-07-12] MEDS: THIAMINE HCL 100 MG TABLET (FP) PO SCH (21:49)
[2018-07-12] MEDS: LIDOCAINE PATCH REMOVAL MC SCH (21:49)
[2018-07-12] MEDS: HYDROCORTISONE ACETATE 25 MG/SUPP.RECT RC PRN (21:51)
[2018-07-13 06:39] VITALS: BP 133/84; PULSE 80; TEMP 97.8
[2018-07-13] MEDS: LIDOCAINE 5% TOPICAL PATCH TP SCH (09:09)
[2018-07-13] MEDS: amLODIPine BESYLATE 5 MG TABLET (FP) PO SCH (09:09)
[2018-07-13] MEDS: PRENATAL VITAMINS W/ FOLIC ACID TABLET (FP) PO SCH (09:09)
[2018-07-13] MEDS: NAPROXEN 500 MG TABLET (FP) PO PRN (09:11)
[2018-07-13] MEDS: FLUTICASONE PROP 0.05% 16 GM NASAL SPRAY NS SCH (09:12)
[2018-07-13] MEDS: METHYL SALICYLATE/MENTHOL OINT 30 GM TUBE TP SCH (09:12)
[2018-07-13] MEDS: CLOTRIMAZOLE/BETAMET DIPROP 15 GM TUBE TP SCH (09:12)
[2018-07-13] MEDS ORDERED: PT OWN MED DRAWER 7, Y5N ONE (09:16)
== END 2018-07-13 09:40 | disposition home or self-care (01) | DRG 772 ==
LOC: YASAS 12:43 → Y5N 12:44 → Y3W 06-25 19:26
PROVIDERS: ADMIT Neuromusculoskeletal Medicine & OMM; ATTEND Neuromusculoskeletal Medicine & OMM
PROC: HZ42ZZZ Group Counseling for Substance Abuse Treatment, Cognitive-Behavioral (ICD-10-PCS; principal; 2018-06-24)
DX: F10.20 Alcohol dependence, uncomplicated (principal); F14.20 Cocaine dependence, uncomplicated; F17.210 Nicotine dependence, cigarettes, uncomplicated; F19.280 Other psychoactive substance dependence with psychoactive substance-induced anxiety disorder; F19.282 Other psychoactive substance dependence with psychoactive substance-induced sleep disorder; I10 Essential (primary) hypertension; R76.11 Nonspecific reaction to tuberculin skin test without active tuberculosis; J06.9 Acute upper respiratory infection, unspecified; L30.8 Other specified dermatitis; H61.22 Impacted cerumen, left ear

== ENCOUNTER 2018-08-20 16:58 | Inpatient (IN) | payer OTHER ==
[2018-08-20 22:28] VITALS: BMI 28.5
--- NOTE | 2018-08-21 01:59 | HP ---
CIWA Score Nausea/Vomitin (vomiting x 3) Muscle Tremors: 4-Moderate,w/Arms Extend Anxiety: 3 Agitation: 3 Paroxysmal Sweats: 2 Orientation: 0-Oriented Tacttile Disturbances: 0-None Auditory Disturbances: 0-None Visual Disturbances: 0-None Headache: 4-Moderately Severe CIWA-Ar Total Score: 19 - Admission Criteria OASAS Guidelines: Admission for Medically Managed Detox: Requires at least one of the followin. CIWA greater than 12 2. Seizures within the past 24 hours 3. Delirium tremens within the past 24 hours 4. Hallucinations within the past 24 hours 5. Acute intervention needed for co occurring medical disorder 6. Acute intervention needed for co occurring psychiatric disorder 7. Severe withdrawal that cannot be handled at a lower level of care (continued vomiting, continued diarrhea, abnormal vital signs) requiring intravenous medication and/or fluids 8. Admission ROS [facility] - [facility] Chief Complaint: Alcohol withdrawal symptoms Allergies/Adverse Reactions: Allergies Allergy/AdvReac Type Severity Reaction Status Date / Time Penicillins Allergy Severe Difficulty Verified 08/20/18 22:23 Breathing tomato [Tomato] Allergy Mild Itching Verified 08/20/18 22:23 tuberculin, purified protein Allergy Rash Verified 08/20/18 22:23 deriva [Tuberculin,Purif.Prot.Deriv.] History of Present Illness: 63 years old male with a long hisatory of alcohol dependence is seeking admission to detox. Patient has been in previous detox and reports insignificant period of sobriety. He has medical history of hemorrhoids and GERD. He denies suicidal ideation at this time Exam Limitations: No Limitations - Ebola screening Have you traveled outside of the country in the last 21 days: No (N) Have you had contact with anyone from an Ebola affected area: No Have you been sick,other than usual withdrawal symptoms: No Do you have a fever: No - Review of Systems Constitutional: Loss of Appetite, Malaise, Changes in sleep EENT: reports: Nose Congestion, Sinus Pressure Respiratory: reports: No Symptoms reported Cardiac: reports: No Symptoms Reported GI: reports: No Symptoms Reported, Diarrhea, Poor Appetite, Poor Fluid Intake : reports: No Symptoms Reported Musculoskeletal: reports: Back Pain, Joint Pain, Muscle Pain Integumentary: reports: Dryness, Flushing Neuro: reports: Headache, Tremors Endocrine: reports: No Symptoms Reported Psychiatric: reports: Judgement Intact, Orientated x3, Anxious, Depressed Other Systems: Reviewed and Negative Patient History - Patient Medical History Hx Anemia: No Hx Asthma: No Hx Chronic Obstructive Pulmonary Disease (COPD): No Hx Cancer: No Hx Cardiac Disorders: No Hx Congestive Heart Failure: No Hx Hypertension: No Hx Hypercholesterolemia: No Hx Pacemaker: No HX Cerebrovascular Accident: No Hx Seizures: No Hx Dementia: No Hx Diabetes: No Hx Gastrointestinal Disorders: Yes (GERD) Hx Liver Disease: No Hx Genitourinary Disorders: No Hx Sexually Transmitted Disorders: No Hx Renal Disease (ESRD): No Hx Thyroid Disease: No Hx Human Immunodeficiency Virus (HIV): No (09/15 negative) Hx Hepatitis C: No Hx Depression: No Hx Suicide Attempt: No Hx Bipolar Disorder: No Hx Schizophrenia: No - Patient Surgical History Past Surgical History: No Hx Neurologic Surgery: No Hx Cataract Extraction: No Hx Cardiac Surgery: No Hx Lung Surgery: No Hx Breast Surgery: No Hx Breast Biopsy: No Hx Abdominal Surgery: No Hx Appendectomy: No Hx Cholecystectomy: No Hx Genitourinary Surgery: No Hx Section: No Hx Orthopedic Surgery: No Anesthesia Reaction: No - PPD History Date: 05/02/17 Results: positive ppd - Smoking Cessation Smoking history: Current some day smoker Have you smoked in the past 12 months: Yes Aproximately how many cigarettes per day: 10 Cigars Per Day: 0 Hx Chewing Tobacco Use: No Initiated information on smoking cessation: Yes 'Breaking Loose' booklet given: 08/20/18 - Substances abused Alcohol Substance route: Oral Frequency: Daily Amount used: 3 PINTS Age of first use: 14 Date of last use: 08/20/18 Marijuana/Hashish Substance route: Smoking Frequency: Daily Amount used: 1 BLUNT Age of first use: 18 Date of last use: 08/19/18 Family Disease History - Family Disease History Family Disease History: Heart Disease: Sister (five - healthy , two with HTN), CA: Mother (, BREAST), Other: Father (, no contact, ), Mother, Brother (five - healthy), Sister, Son (age 24 - lives in [place]), Daughter (age 21 - lives in [place]) Admission Physical Exam BHS - Vital Signs Vital Signs: Vital Signs - 24 hr 08/20/18 22:18 Temperature 98.7 F Pulse Rate 100 H Respiratory 18 Rate Blood Pressure 160/94 - Physical General Appearance: Yes: Moderate Distress, Tremorous, Irritable, Anxious HEENTM: Yes: EOMI, Normal ENT Inspection, Normal Voice, GLEN Respiratory: Yes: Normal Breath Sounds, No Respiratory Distress Neck: Yes: Supple Breast: Yes: Breast Exam Deferred Cardiology: Yes: Regular Rhythm, Regular Rate Abdominal: Yes: Normal Bowel Sounds Genitourinary: Yes: Within Normal Limits Back: Yes: Normal Inspection Musculoskeletal: Yes: Back pain, Muscle Pain, Muscle weakness Extremities: Yes: Tremors 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: Yes: Alert, Normal Mood/Affect Integumentary: Yes: Warm Lymphatic: Yes: Within Normal Limits - Diagnostic (1) Alcohol dependence with uncomplicated withdrawal Current Visit: Yes Status: Chronic (2) Hemorrhoids Current Visit: Yes Status: Chronic Qualifiers: Hemorrhoid type: unspecified Qualified Code(s): K64.9 - Unspecified hemorrhoids (3) Abdominal hernia Current Visit: No Status: Chronic Qualifiers: Hernia type: umbilical Obstruction and gangrene presence: without obstruction or gangrene Qualified Code(s): K42.9 - Umbilical hernia without obstruction or gangrene (4) GERD (gastroesophageal reflux disease) Current Visit: Yes Status: Chronic Qualifiers: Esophagitis presence: without esophagitis Qualified Code(s): K21.9 - Gastro -esophageal reflux disease without esophagitis (5) Hypertension Current Visit: Yes Status: Chronic Qualifiers: Hypertension type: essential hypertension Qualified Code(s): I10 - Essential (primary) hypertension (6) Insomnia Current Visit: No Status: Chronic Qualifiers: Insomnia type: alcohol-induced Qualified Code(s): F10.982 - Alcohol use, unspecified with alcohol-induced sleep disorder (7) Nicotine dependence Current Visit: Yes Status: Chronic (8) PPD positive Current Visit: Yes Status: Chronic Cleared for Admission S - Detox or Rehab [facility] Level of Care: Medically Managed Detox Regimen/Protocol: Librium Breathalyzer - Breathalyzer Breathalyzer: 0.280 Urine Drug Screen - Test Device Lot number: [id number] Expiration date: 03/30/20 - Control Is test valid?: Yes - Results Drug screen NEGATIVE: Yes Inpatient Rehab Admission - Rehab Decision to Admit Inpatient rehab admission?: No
[2018-08-21] MEDS ORDERED: hydrOXYzine PAMOATE 25 MG CAPSULE (FP) PO PRN (02:09)
[2018-08-21] MEDS ORDERED: IBUPROFEN 400 MG TABLET (FP) PO PRN (02:09)
[2018-08-21] MEDS ORDERED: MELATONIN 5 MG TABLETS PO PRN (02:09)
[2018-08-21] MEDS ORDERED: METHOCARBAMOL 500 MG TABLET PO PRN (02:09)
[2018-08-21] MEDS ORDERED: MENTHOL/PHENOL 1 EACH UD MM PRN (02:09)
[2018-08-21] MEDS ORDERED: ACETAMINOPHEN 325 MG TABLET (FP) PO PRN ×2 (02:09)
[2018-08-21] MEDS ORDERED: NICOTINE POLACRILEX 2 MG GUM BUC PRN (02:09)
[2018-08-21] MEDS ORDERED: BISMUTH SUBSALICYLATE 524 MG/30 ML UD PO PRN (02:09)
[2018-08-21] MEDS ORDERED: chlordiazePOXIDE HCL 25 MG CAPSULE PO PRN (02:09)
[2018-08-21] MEDS ORDERED: MAGNESIUM CITRATE 300 ML BOTTLE PO PRN (02:09)
[2018-08-21] MEDS ORDERED: MAGNESIUM HYDROX 2400MG/30ML ORAL SUSPENSION 30 ML CUP PO PRN (02:09)
[2018-08-21] MEDS ORDERED: SODIUM CHLORIDE NASAL SPRAY 44 ML BOTTLE NS PRN (02:11)
[2018-08-21] MEDS: chlordiazePOXIDE HCL 25 MG CAPSULE PO SCH ×4 (04:00→22:34)
[2018-08-21] MEDS: NAPROXEN 500 MG TABLET (FP) PO SCH ×2 (10:27→22:34)
[2018-08-21] MEDS: NICOTINE 14 MG/24 HOURS TOPICAL PATCH TD SCH (10:27)
[2018-08-21] MEDS: amLODIPine BESYLATE 5 MG TABLET (FP) PO SCH (10:27)
[2018-08-21] MEDS: PRENATAL VITAMINS W/ FOLIC ACID TABLET (FP) PO SCH (10:27)
--- NOTE | 2018-08-21 13:28 | PN ---
S CIWA - CIWA Score Nausea/Vomitin-No Nausea/No Vomiting Muscle Tremors: 3 Anxiety: 3 Agitation: 3 Paroxysmal Sweats: 3 Orientation: 0-Oriented Tacttile Disturbances: 0-None Auditory Disturbances: 0-None Visual Disturbances: 0-None Headache: 0-None Present CIWA-Ar Total Score: 12 BHS Progress Note (SOAP) Subjective: sweats shakes interrupted sleep acid reflux Objective: 08/21/18 13:27 Vital Signs Temperature 98.1 F 08/21/18 13:14 Pulse Rate 109 H 08/21/18 13:14 Respiratory Rate 18 08/21/18 13:14 Blood Pressure 143/73 08/21/18 13:14 O2 Sat by Pulse Oximetry (%) labs pending aaox3 ambulating no acute distress Assessment: 08/21/18 13:27 withdrawal sx Plan: continue detox increase fluids MOM/Mylanta prn ordered
[2018-08-21] MEDS: HYDROCORTISONE 0.5% TOPICAL CREAM 30 GM TUBE TP SCH (15:06)
[2018-08-21] MEDS: ARTIFICIAL TEARS (POLYVINYL ALCOHOL) OPTH DROPS OU SCH (15:08)
[2018-08-21] MEDS: MAG HYDROX/AL HYDROX/SIMETH 30 ML UNIT-DOSE CUP PO PRN (15:09)
[2018-08-21] MEDS: THIAMINE HCL 100 MG TABLET (FP) PO SCH (22:34)
[2018-08-21] MEDS: RANITIDINE HCL 150 MG TABLET (FP) PO SCH (22:34)
[2018-08-21] MEDS: HYDROCORTISONE ACETATE 25 MG/SUPP.RECT RC SCH (22:35)
[2018-08-22] MEDS: chlordiazePOXIDE HCL 25 MG CAPSULE PO SCH ×4 (06:30→22:56)
[2018-08-22] MEDS: ARTIFICIAL TEARS (POLYVINYL ALCOHOL) OPTH DROPS OU SCH ×5 (06:49→23:05)
[2018-08-22] MEDS: HYDROCORTISONE 0.5% TOPICAL CREAM 30 GM TUBE TP SCH (10:05)
[2018-08-22] MEDS: amLODIPine BESYLATE 5 MG TABLET (FP) PO SCH (10:05)
[2018-08-22] MEDS: NICOTINE 14 MG/24 HOURS TOPICAL PATCH TD SCH (10:05)
[2018-08-22] MEDS: PRENATAL VITAMINS W/ FOLIC ACID TABLET (FP) PO SCH (10:05)
[2018-08-22] MEDS: NAPROXEN 500 MG TABLET (FP) PO SCH (10:05)
[2018-08-22] MEDS: RANITIDINE HCL 150 MG TABLET (FP) PO SCH ×2 (10:05→22:55)
--- NOTE | 2018-08-22 11:18 | PN ---
S CIWA - CIWA Score Nausea/Vomitin-No Nausea/No Vomiting Muscle Tremors: 3 Anxiety: 2 Agitation: 3 Paroxysmal Sweats: 2 Orientation: 0-Oriented Tacttile Disturbances: 0-None Auditory Disturbances: 0-None Visual Disturbances: 0-None Headache: 0-None Present CIWA-Ar Total Score: 10 BHS Progress Note (SOAP) Subjective: diarrhea muscle cramps body aches/shoulder pain Objective: 08/22/18 11:16 Vital Signs Temperature 97.7 F 08/22/18 10:29 Pulse Rate 109 H 08/22/18 10:29 Respiratory Rate 18 08/22/18 10:29 Blood Pressure 120/77 08/22/18 10:29 O2 Sat by Pulse Oximetry (%) labs pending aaox3 ambulating no acute distress Assessment: 08/22/18 11:17 withdrawal sx Plan: continue detox lidocaine patch analgesic cream motrin 800mg tid as per pt request
[2018-08-22] MEDS ORDERED: LIDOCAINE 5% TOPICAL PATCH TP ONE (11:19)
[2018-08-22 11:59] LABS: MCH 31.7 pg (25.7-33.7); MCHC 33.3 g/dl (32.0-35.9); MEAN PLT VOLUME 8.8 fl (7.5-11.1); PLATELET COUNT 155 K/MM3 (134-434); RDW 13.2 % (11.9-15.9); WHITE BLOOD COUNT 6.2 K/mm3 (4.0-10.0)
[2018-08-22 12:25] LABS: ALBUMIN 3.7 g/dl (3.4-5.0); ALK PHOS 53 U/L (45-117); ANION GAP 12 MMOL/L (8-16); BILIRUBIN,TOTAL 0.6 mg/dL (0.2-1); BLOOD UREA NITROGEN 15 mg/dL (7-18); CALCIUM 8.7 mg/dL (8.5-10.1); CHLORIDE 104 mmol/L (98-107); CO2 22 mmol/L (21-32); CREATININE 1.2 mg/dL (0.55-1.3); GLUCOSE,RANDOM 135 mg/dL (74-106); POTASSIUM 3.8 mmol/L (3.5-5.1); SGOT/AST 34 U/L (15-37); SGPT/ALT 43 U/L (13-61); SODIUM 139 mmol/L (136-145); TOT PROT 6.9 g/dl (6.4-8.2)
[2018-08-22] MEDS: IBUPROFEN 400 MG TABLET (FP) PO PRN (17:56)
[2018-08-22] MEDS: METHYL SALICYLATE/MENTHOL OINT 30 GM TUBE TP SCH (22:55)
[2018-08-22] MEDS: HYDROCORTISONE ACETATE 25 MG/SUPP.RECT RC SCH (22:55)
[2018-08-22] MEDS: THIAMINE HCL 100 MG TABLET (FP) PO SCH (22:55)
[2018-08-22] MEDS: LIDOCAINE PATCH REMOVAL MC SCH (22:57)
[2018-08-23] MEDS ORDERED: chlordiazePOXIDE HCL 10 MG CAPSULE PO PRN (05:00)
[2018-08-23] MEDS: chlordiazePOXIDE HCL 10 MG CAPSULE PO SCH ×4 (06:02→22:34)
[2018-08-23] MEDS: ARTIFICIAL TEARS (POLYVINYL ALCOHOL) OPTH DROPS OU SCH ×3 (06:02→22:33)
[2018-08-23] MEDS: IBUPROFEN 400 MG TABLET (FP) PO PRN ×2 (06:04→14:29)
[2018-08-23] MEDS: METHYL SALICYLATE/MENTHOL OINT 30 GM TUBE TP SCH ×2 (10:26→22:34)
[2018-08-23] MEDS: NICOTINE 14 MG/24 HOURS TOPICAL PATCH TD SCH (10:26)
[2018-08-23] MEDS: MAG HYDROX/AL HYDROX/SIMETH 30 ML UNIT-DOSE CUP PO PRN (10:30)
[2018-08-23] MEDS: PRENATAL VITAMINS W/ FOLIC ACID TABLET (FP) PO SCH (10:30)
[2018-08-23] MEDS: RANITIDINE HCL 150 MG TABLET (FP) PO SCH ×2 (10:31→22:34)
[2018-08-23] MEDS: HYDROCORTISONE 0.5% TOPICAL CREAM 30 GM TUBE TP SCH (10:31)
[2018-08-23] MEDS: amLODIPine BESYLATE 5 MG TABLET (FP) PO SCH (10:31)
[2018-08-23] MEDS: LIDOCAINE 5% TOPICAL PATCH TP SCH (10:35)
[2018-08-23] MEDS: DOCUSATE SODIUM 100 MG CAPSULE (FP) PO SCH ×2 (13:20→22:34)
--- NOTE | 2018-08-23 13:29 | PN ---
S CIWA - CIWA Score Nausea/Vomitin-No Nausea/No Vomiting Muscle Tremors: 2 Anxiety: 2 Agitation: 2 Paroxysmal Sweats: 2 Orientation: 0-Oriented Tacttile Disturbances: 0-None Auditory Disturbances: 0-None Visual Disturbances: 0-None Headache: 0-None Present CIWA-Ar Total Score: 8 BHS Progress Note (SOAP) Subjective: sweats constipation Objective: 08/23/18 13:28 Vital Signs Temperature 97.9 F 08/23/18 09:10 Pulse Rate 88 08/23/18 09:10 Respiratory Rate 18 08/23/18 09:10 Blood Pressure 140/80 08/23/18 09:10 O2 Sat by Pulse Oximetry (%) aaox3 ambulating no acute distress Assessment: 08/23/18 13:28 mild withdrawal sx Plan: continue detox colace tid increase fluids
[2018-08-23] MEDS: THIAMINE HCL 100 MG TABLET (FP) PO SCH (22:34)
[2018-08-23] MEDS: LIDOCAINE PATCH REMOVAL MC SCH (22:36)
[2018-08-23] MEDS: HYDROCORTISONE ACETATE 25 MG/SUPP.RECT RC SCH (22:36)
[2018-08-24] MEDS: chlordiazePOXIDE HCL 10 MG CAPSULE PO SCH ×2 (06:01→17:57)
[2018-08-24] MEDS: ARTIFICIAL TEARS (POLYVINYL ALCOHOL) OPTH DROPS OU SCH ×3 (06:02→22:40)
[2018-08-24] MEDS: DOCUSATE SODIUM 100 MG CAPSULE (FP) PO SCH ×3 (06:02→22:40)
[2018-08-24] MEDS: MAG HYDROX/AL HYDROX/SIMETH 30 ML UNIT-DOSE CUP PO PRN (10:09)
[2018-08-24] MEDS: amLODIPine BESYLATE 5 MG TABLET (FP) PO SCH (10:10)
[2018-08-24] MEDS: NICOTINE 14 MG/24 HOURS TOPICAL PATCH TD SCH (10:10)
[2018-08-24] MEDS: LIDOCAINE 5% TOPICAL PATCH TP SCH (10:10)
[2018-08-24] MEDS: PRENATAL VITAMINS W/ FOLIC ACID TABLET (FP) PO SCH (10:10)
[2018-08-24] MEDS: RANITIDINE HCL 150 MG TABLET (FP) PO SCH ×2 (10:10→22:40)
[2018-08-24] MEDS: HYDROCORTISONE 0.5% TOPICAL CREAM 30 GM TUBE TP SCH (10:10)
[2018-08-24] MEDS: METHYL SALICYLATE/MENTHOL OINT 30 GM TUBE TP SCH ×2 (10:11→22:41)
[2018-08-24] MEDS: IBUPROFEN 400 MG TABLET (FP) PO PRN ×2 (10:13→17:59)
--- NOTE | 2018-08-24 11:01 | PN ---
S CIWA - CIWA Score Nausea/Vomitin-No Nausea/No Vomiting Muscle Tremors: 1-None Visible, but [place] Anxiety: 1-Mildly Anxious Agitation: 0-Normal Activity Paroxysmal Sweats: 1-Minimal Palms Moist Orientation: 0-Oriented Tacttile Disturbances: 0-None Auditory Disturbances: 0-None Visual Disturbances: 0-None Headache: 0-None Present CIWA-Ar Total Score: 3 BHS Progress Note (SOAP) Subjective: feeling much better little anxiety Objective: 08/24/18 11:00 Vital Signs Temperature 97.2 F L 08/24/18 06:00 Pulse Rate 96 H 08/24/18 06:33 Respiratory Rate 18 08/24/18 06:33 Blood Pressure 143/84 08/24/18 06:33 O2 Sat by Pulse Oximetry (%) aaox3 ambulating no acute distress Assessment: 08/24/18 11:01 mild withdrawal sx Plan: continue detox increase fluids d/c in am
[2018-08-24] MEDS: HYDROCORTISONE ACETATE 25 MG/SUPP.RECT RC SCH (22:40)
[2018-08-24] MEDS: THIAMINE HCL 100 MG TABLET (FP) PO SCH (22:40)
[2018-08-24] MEDS: LIDOCAINE PATCH REMOVAL MC SCH (22:41)
[2018-08-25] MEDS: chlordiazePOXIDE HCL 10 MG CAPSULE PO SCH (06:15)
[2018-08-25] MEDS: ARTIFICIAL TEARS (POLYVINYL ALCOHOL) OPTH DROPS OU SCH (06:15)
[2018-08-25] MEDS: DOCUSATE SODIUM 100 MG CAPSULE (FP) PO SCH (06:17)
--- NOTE | 2018-08-25 09:19 | DS ---
[facility] Detox Discharge Summary Admission Date: 08/21/18 Discharge Date: 08/25/18 - History Present History: Alcohol Dependence - Physical Exam Results Vital Signs: Vital Signs Temperature 97.5 F L 08/25/18 06:55 Pulse Rate 78 08/25/18 06:55 Respiratory Rate 16 08/25/18 06:55 Blood Pressure 137/77 08/25/18 06:55 O2 Sat by Pulse Oximetry (%) - Treatment Hospital Course: Detox Protocol Followed, Detoxed Safely, Responded well, Discharged Condition Good, Rehab Referral Accepted - Medication Discharge Medications: Ambulatory Orders Hydrocortisone Acetate [Anusol Hc Suppository -] 25 mg RC HS #5 supp.rect Polyvinyl Alcohol [Artificial Tears] 1 drop OP TID #1 drops 10/31/17 Sodium Chloride Nasal [place] [[place] Nasal [place] -] 2 spray NS Q6H PRN #1 spray 10/31/17 Hydrocortisone 0.5% Cream [Hytone 0.5% Cream -] 1 applic TP DAILY 01/29/18 Naproxen [Naprosyn -] 500 mg PO BID 06/20/18 Amlodipine Besylate [Norvasc -] 5 mg PO DAILY #14 tablet 07/13/18 - AMA Did Patient Leave Against Medical Advice: No (referred to [facility] )
[2018-08-25 09:45] VITALS: BP 149/91; PULSE 97; TEMP 97.2
[2018-08-25] MEDS: RANITIDINE HCL 150 MG TABLET (FP) PO SCH (10:31)
[2018-08-25] MEDS: amLODIPine BESYLATE 5 MG TABLET (FP) PO SCH (10:31)
[2018-08-25] MEDS: PRENATAL VITAMINS W/ FOLIC ACID TABLET (FP) PO SCH (10:31)
[2018-08-25] MEDS: HYDROCORTISONE 0.5% TOPICAL CREAM 30 GM TUBE TP SCH (10:32)
[2018-08-25] MEDS: METHYL SALICYLATE/MENTHOL OINT 30 GM TUBE TP SCH (10:32)
[2018-08-25] MEDS: LIDOCAINE 5% TOPICAL PATCH TP SCH (10:32)
[2018-08-25] MEDS: NICOTINE 14 MG/24 HOURS TOPICAL PATCH TD SCH (10:32)
[2018-08-25] MEDS: IBUPROFEN 400 MG TABLET (FP) PO PRN (10:34)
== END 2018-08-25 12:14 | disposition home or self-care (01) | DRG 775 ==
LOC: YASAS 16:58 → Y6N 08-21 02:24
PROVIDERS: ADMIT Surgery; ATTEND Surgery
PROC: HZ2ZZZZ Detoxification Services for Substance Abuse Treatment (ICD-10-PCS; principal; 2018-08-21)
DX: F10.230 Alcohol dependence with withdrawal, uncomplicated (principal); F17.210 Nicotine dependence, cigarettes, uncomplicated; I10 Essential (primary) hypertension; K21.9 Gastro-esophageal reflux disease without esophagitis; M62.838 Other muscle spasm; K64.9 Unspecified hemorrhoids; R76.11 Nonspecific reaction to tuberculin skin test without active tuberculosis
CPT/HCPCS: 36415; 80053; 85027; 86593

== ENCOUNTER 2018-10-02 18:39 | Inpatient (IN) | payer OTHER ==
[2018-10-02 23:20] VITALS: BMI 30.6
--- NOTE | 2018-10-03 00:01 | HP ---
"CIWA Score Nausea/Vomitin Muscle Tremors: 4-Moderate,w/Arms Extend Anxiety: 3 Agitation: 3 Paroxysmal Sweats: 3 (Increased facial moisture) Orientation: 0-Oriented Tacttile Disturbances: 0-None Auditory Disturbances: 0-None Visual Disturbances: 0-None Headache: 3-Moderate (Frontal headache) CIWA-Ar Total Score: 18 - Admission Criteria OASAS Guidelines: Admission for Medically Managed Detox: Requires at least one of the followin. CIWA greater than 12 2. Seizures within the past 24 hours 3. Delirium tremens within the past 24 hours 4. Hallucinations within the past 24 hours 5. Acute intervention needed for co occurring medical disorder 6. Acute intervention needed for co occurring psychiatric disorder 7. Severe withdrawal that cannot be handled at a lower level of care (continued vomiting, continued diarrhea, abnormal vital signs) requiring intravenous medication and/or fluids 8. Admission ROS [facility] Chief Complaint: alcohol withdrawal. Allergies/Adverse Reactions: Allergies Allergy/AdvReac Type Severity Reaction Status Date / Time Penicillins Allergy Severe Difficulty Verified 10/02/18 23:06 Breathing tomato [Tomato] Allergy Mild Itching Verified 10/02/18 23:06 tuberculin, purified protein Allergy Rash Verified 10/02/18 23:06 deriva [Tuberculin,Purif.Prot.Deriv.] History of Present Illness: 63 yom w/ long history of alcohol dependence is seeking admission to detox. Multiple detoxes and rehabs and reports minimal period of sobriety post discharge. States uses cocaine and marijuana - Utox negative States last use 09/27/18/ Nicotine use began at age 19. Declines Nicotine patch/gum. PMHx:Toothache. Knee and shoulder pain. Hemorrhoids. Dry eyes. Denies HTN despite elevated blood pressure. States does not take norvasc. 01/29/18 EKG = Sinus tachycardia w/ possible anterior infarct. Denies seizures, blackouts, overdoses. CXR: 06/21/18: No evidence of TB. MHHx: Denies depression or MH problems. Denies thoughts of harming self or others. Search Terms: Jose Salvador, 1955 Search Date: 10/03/2018 12:12:49 AM The Drug Utilization Report below displays all of the controlled substance prescriptions, if any, that your patient has filled in the last twelve months. The information displayed on this report is compiled from pharmacy submissions to the Department, and accurately reflects the information as submitted by the pharmacies. This report was requested by: Smiley Lassiter | Reference #: [id number] There are no results for the search terms that you entered. Search Terms: Jose Salvador, 1955 Search Date: 10/03/2018 12:13:45 AM States Searched: [place], [place], [place], [place], [place], [place], [place] The Drug Utilization Report below displays the controlled substance prescriptions, if any, that were dispensed in the indicated state(s). The information displayed on this report is compiled from requests submitted to other states' PMPs, and accurately reflects the information as returned by them. Blank lopez indicate data not provided by other state. This report was requested by: Smiley Lassiter | Reference #: [id number] Exam Limitations: No Limitations - Ebola screening Have you traveled outside of the country in the last 21 days: No (N) Have you had contact with anyone from an Ebola affected area: No Have you been sick,other than usual withdrawal symptoms: No (Denies recent exposure to measles. ) Do you have a fever: No - Review of Systems Constitutional: Chills EENT: reports: Blurred Vision, Nose Congestion, Dental Problems (Tooth pain), Other (Increased light sensitivity) Respiratory: reports: Cough (Cough x 2 weeks.) Cardiac: reports: No Symptoms Reported GI: reports: Nausea, Vomiting (earler today) : reports: No Symptoms Reported Musculoskeletal: reports: Back Pain (Back pain x 2 weeks - denies fall/injury), Joint Pain ((R) Shoulder pain; Abdifatah knee pain (R) > (L)) Integumentary: reports: No Symptoms Reported Neuro: reports: Headache (States r/t sinus congestion) Endocrine: reports: No Symptoms Reported Hematology: reports: No Symptoms Reported Psychiatric: reports: Judgement Intact, Orientated x3, Agitated, Anxious Patient History - Patient Medical History Hx Anemia: No Hx Asthma: No Hx Chronic Obstructive Pulmonary Disease (COPD): No Hx Cancer: No Hx Cardiac Disorders: No Hx Congestive Heart Failure: No Hx Hypertension: No Hx Hypercholesterolemia: No Hx Pacemaker: No HX Cerebrovascular Accident: No Hx Seizures: No Hx Dementia: No Hx Diabetes: No Hx Gastrointestinal Disorders: Yes (GERD) Hx Liver Disease: No Hx Genitourinary Disorders: No Hx Sexually Transmitted Disorders: No Hx Renal Disease (ESRD): No Hx Thyroid Disease: No Hx Human Immunodeficiency Virus (HIV): No (09/15 negative) Hx Hepatitis C: No Hx Depression: No Hx Suicide Attempt: No Hx Bipolar Disorder: No Hx Schizophrenia: No - Patient Surgical History Past Surgical History: No Hx Neurologic Surgery: No Hx Cataract Extraction: No Hx Cardiac Surgery: No Hx Lung Surgery: No Hx Breast Surgery: No Hx Breast Biopsy: No Hx Abdominal Surgery: No Hx Appendectomy: No Hx Cholecystectomy: No Hx Genitourinary Surgery: No Hx Section: No Hx Orthopedic Surgery: No Anesthesia Reaction: No - PPD History Date: 05/02/17 Results: positive ppd - Smoking Cessation Smoking history: Current some day smoker Have you smoked in the past 12 months: Yes Aproximately how many cigarettes per day: 7 Cigars Per Day: 0 Hx Chewing Tobacco Use: No Initiated information on smoking cessation: Yes 'Breaking Loose' booklet given: 10/03/18 - Substance & Tx. History Hx Alcohol Use: Yes Hx Substance Use: Yes Substance Use Type: Alcohol, Cocaine, Marijuana Hx Substance Use Treatment: Yes (multiple detox and rehabs) - Substances abused Alcohol Substance route: Oral Frequency: Daily Amount used: 3 PINTS Age of first use: 14 Date of last use: 10/02/18 Marijuana/Hashish Substance route: Smoking Frequency: Daily Amount used: 1 BLUNT Age of first use: 18 Date of last use: 09/27/18 Cocaine Substance route: Inhalation Frequency: 1-2 times per week Amount used: 100 hundred Age of first use: 23 Date of last use: 09/28/18 Family Disease History - Family Disease History Family Disease History: Heart Disease: Sister (five - healthy , two with HTN), CA: Mother (, BREAST), Other: Father (, no contact, ), Mother, Brother (five - healthy), Sister, Son (age 24 - lives in [place]), Daughter (age 21 - lives in [place]) Admission Physical Exam BHS - Vital Signs Vital Signs: Vital Signs - 24 hr 10/02/18 23:05 Temperature 97.8 F Pulse Rate 106 H Respiratory 18 Rate Blood Pressure 141/87 - Physical General Appearance: Yes: Nourished, Mild Distress, Obese, Tremorous, Irritable, Sweating (Increased facial moisture), Anxious HEENTM: Yes: EOMI (Jerking movement of eyes upon lateral gaze), Hearing grossly Normal, Normocephalic, Normal Voice, Pharynx Normal, Photophobia, Nasal Congestion, Other (Unable to assess pupils/pupil resposne = patient too sensitive to light) Respiratory: Yes: Lungs Clear, Normal Breath Sounds, No Respiratory Distress Neck: Yes: No masses,lesions,Nodules, Supple Breast: Yes: Breast Exam Deferred Cardiology: Yes: Regular Rate, S1, S2, Tachycardia Abdominal: Yes: Non Tender, Soft, Increased Bowel Sounds, Protuberent, Hernia ( Large Ventral and large umbilical hernias. Reducible.), Other (3 small external hemorrhoids w/skin tags noted at anal orifice. Non-tender. 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 intact, Fully Oriented, Alert, Motor Strength 5/5 Integumentary: Yes: Normal Color, Warm Lymphatic: Yes: Within Normal Limits - Diagnostic (1) Umbilical hernia Current Visit: Yes Status: Chronic Qualifiers: Obstruction and gangrene presence: without obstruction or gangrene Qualified Code(s): K42.9 - Umbilical hernia without obstruction or gangrene (2) Abdominal hernia Current Visit: Yes Status: Chronic Qualifiers: Hernia type: ventral Obstruction and gangrene presence: without obstruction or gangrene Qualified Code(s): K43.9 - Ventral hernia without obstruction or gangrene (3) Alcohol dependence with uncomplicated withdrawal Current Visit: Yes Status: Acute (4) History of positive PPD Current Visit: Yes Status: Chronic (5) Nicotine dependence Current Visit: Yes Status: Chronic (6) Tachycardia Current Visit: Yes Status: Chronic (7) Dry eye Current Visit: Yes Status: Chronic (8) Elevated blood pressure reading Current Visit: Yes Status: Chronic (9) Hemorrhoids Current Visit: Yes Status: Chronic Qualifiers: Hemorrhoid type: unspecified Qualified Code(s): K64.9 - Unspecified hemorrhoids Cleared for Admission S - Detox or Rehab [facility] Level of Care: Medically Managed Detox Regimen/Protocol: Librium Claeared for Rehab Admission: No Breathalyzer - Breathalyzer Breathalyzer: 0 Urine Drug Screen - Test Device Lot number: [id number] Expiration date: 06/28/20 - Control Is test valid?: Yes - Results Drug screen NEGATIVE: Yes Inpatient Rehab Admission - Rehab Decision to Admit Inpatient rehab admission?: No"
[2018-10-03] MEDS ORDERED: P-EPHED 60MG/TRIPROLIDI 2.5MG TABLET PO PRN (00:42)
[2018-10-03] MEDS ORDERED: MAGNESIUM HYDROX 2400MG/30ML ORAL SUSPENSION 30 ML CUP PO PRN (00:42)
[2018-10-03] MEDS ORDERED: ACETAMINOPHEN 325 MG TABLET (FP) PO PRN ×2 (00:42)
[2018-10-03] MEDS ORDERED: MAGNESIUM CITRATE 300 ML BOTTLE PO PRN (00:42)
[2018-10-03] MEDS ORDERED: MENTHOL/PHENOL 1 EACH UD MM PRN (00:42)
[2018-10-03] MEDS ORDERED: chlordiazePOXIDE HCL 25 MG CAPSULE PO ONE (00:42)
[2018-10-03] MEDS ORDERED: MELATONIN 5 MG TABLETS PO PRN (00:42)
[2018-10-03] MEDS ORDERED: METHOCARBAMOL 500 MG TABLET PO PRN (00:42)
[2018-10-03] MEDS ORDERED: chlordiazePOXIDE HCL 25 MG CAPSULE PO PRN (00:42)
[2018-10-03] MEDS ORDERED: BISMUTH SUBSALICYLATE 524 MG/30 ML UD PO PRN (00:42)
[2018-10-03] MEDS: chlordiazePOXIDE HCL 25 MG CAPSULE PO SCH ×4 (06:21→22:36)
[2018-10-03] MEDS: ARTIFICIAL TEARS (POLYVINYL ALCOHOL) OPTH DROPS OU SCH ×3 (06:23→22:39)
[2018-10-03] MEDS: NAPROXEN 500 MG TABLET (FP) PO SCH ×3 (06:23→22:36)
--- NOTE | 2018-10-03 09:37 | EKG ---
Test Reason : Blood Pressure : / mmHG Vent. Rate : 093 BPM Atrial Rate : 093 BPM P-R Int : 174 ms QRS Dur : 074 ms QT Int : 348 ms P-R-T Axes : 048 -04 034 degrees QTc Int : 432 ms NORMAL SINUS RHYTHM POSSIBLE LEFT ATRIAL ENLARGEMENT BORDERLINE ECG WHEN COMPARED WITH ECG OF 29-JAN-2018 18:38, BORDERLINE CRITERIA FOR ANTERIOR INFARCT ARE NO LONGER PRESENT Confirmed by LORAINE LUZ, ARLENE ([id number]) on 10/03/2018 9:37:35 AM Referred By: RED DRISCOLL Confirmed By:ARLENE BARON MD
[2018-10-03] MEDS: PRENATAL VITAMINS W/ FOLIC ACID TABLET (FP) PO SCH (10:14)
--- NOTE | 2018-10-03 14:46 | PN ---
S CIWA - CIWA Score Nausea/Vomitin-No Nausea/No Vomiting Muscle Tremors: 2 Anxiety: 3 Agitation: 1-Slight > Activity Paroxysmal Sweats: 2 Orientation: 0-Oriented Tacttile Disturbances: 2-Mild Itch/Numbness/Burn Auditory Disturbances: 0-None Visual Disturbances: 3-Moderate Sensitivity Headache: 0-None Present CIWA-Ar Total Score: 13 BHS Progress Note (SOAP) Subjective: Sweating, Anxious, Tremors. Objective: PATIENT A & O X 3, OBSERVED AMBULATING ON UNIT UNASSISTED. IN NO ACUTE DISTRESS. 10/03/18 14:46 Vital Signs Temperature 98.1 F 10/03/18 13:41 Pulse Rate 102 H 10/03/18 13:41 Respiratory Rate 18 10/03/18 13:41 Blood Pressure 136/73 10/03/18 13:41 O2 Sat by Pulse Oximetry (%) ADMISSION LAB RESULTS PENDING. 10/03/18 14:47 Assessment: 10/03/18 14:47 WITHDRAWAL SYMPTOMS. Plan: CONTINUE DETOX. INCREASE DAILY PO FLUID / WATER INTAKE.
[2018-10-03] MEDS: HYDROCORTISONE 0.5% TOPICAL CREAM 30 GM TUBE TP SCH (15:16)
[2018-10-03] MEDS: MAG HYDROX/AL HYDROX/SIMETH 30 ML UNIT-DOSE CUP PO PRN (16:11)
[2018-10-03] MEDS: THIAMINE HCL 100 MG TABLET (FP) PO SCH (22:36)
[2018-10-03] MEDS: BENZOCAINE 20 % GEL TUBE MM PRN (22:37)
[2018-10-03] MEDS: MINERAL OIL/PETROLAT/WATER TOPICAL CREAM 113 GM JAR TP SCH (22:37)
[2018-10-03] MEDS: SODIUM CHLORIDE NASAL SPRAY 44 ML BOTTLE NS PRN (22:39)
[2018-10-04] MEDS: NAPROXEN 500 MG TABLET (FP) PO SCH ×3 (06:18→22:29)
[2018-10-04] MEDS: ARTIFICIAL TEARS (POLYVINYL ALCOHOL) OPTH DROPS OU SCH ×3 (06:18→22:31)
[2018-10-04] MEDS: chlordiazePOXIDE HCL 25 MG CAPSULE PO SCH ×4 (06:18→22:29)
--- NOTE | 2018-10-04 10:16 | PN ---
S CIWA - CIWA Score Nausea/Vomitin Muscle Tremors: 3 Anxiety: 2 Agitation: 2 Paroxysmal Sweats: 1-Minimal Palms Moist Orientation: 0-Oriented Tacttile Disturbances: 1-Very Mild Itch/Numbness Auditory Disturbances: 1-Very Mild Visual Disturbances: 0-None Headache: 1-Very Mild CIWA-Ar Total Score: 13 BHS Progress Note (SOAP) Subjective: alert,irritable,anxious,interrupted sleep,tremor Objective: 10/04/18 10:12 Vital Signs Temperature 98.1 F 10/04/18 09:11 Pulse Rate 101 H 10/04/18 09:11 Respiratory Rate 18 10/04/18 09:11 Blood Pressure 150/90 10/04/18 09:11 O2 Sat by Pulse Oximetry (%) 10/04/18 10:12 labs pending Assessment: 10/04/18 10:13 withdrawal symptom Plan: continue detox,colace 100 mgs po tid for constipation,flonase nasal spray
[2018-10-04 10:22] LABS: HEMATOCRIT 38.7 % (35.4-49); MCHC 33.6 g/dl (32.0-35.9); MEAN CELL VOLUME 92.1 fl (80-96); MEAN PLT VOLUME 8.8 fl (7.5-11.1); PLATELET COUNT 217 K/MM3 (134-434); RDW 13.5 % (11.9-15.9); WHITE BLOOD COUNT 5.5 K/mm3 (4.0-10.0)
[2018-10-04 10:51] LABS: ALBUMIN 4.1 g/dl (3.4-5.0); BILIRUBIN,TOTAL 0.4 mg/dL (0.2-1); CALCIUM 9.1 mg/dL (8.5-10.1); CREATININE 1.2 mg/dL (0.55-1.3); POTASSIUM 4.5 mmol/L (3.5-5.1); TOT PROT 7.7 g/dl (6.4-8.2)
[2018-10-04] MEDS: MINERAL OIL/PETROLAT/WATER TOPICAL CREAM 113 GM JAR TP SCH ×2 (10:56→22:31)
[2018-10-04] MEDS: PRENATAL VITAMINS W/ FOLIC ACID TABLET (FP) PO SCH (10:56)
[2018-10-04] MEDS: HYDROCORTISONE 0.5% TOPICAL CREAM 30 GM TUBE TP SCH (10:56)
[2018-10-04] MEDS: MAG HYDROX/AL HYDROX/SIMETH 30 ML UNIT-DOSE CUP PO PRN (10:59)
[2018-10-04] MEDS: SODIUM CHLORIDE NASAL SPRAY 44 ML BOTTLE NS PRN (11:00)
[2018-10-04 12:40] LABS: PH,URINE 5.5 (5.0-8.0); URINE APPEARANCE CLEAR; URINE BILIRUBIN NEGATIVE (NEGATIVE); URINE COLOR YELLOW; URINE GLUCOSE (UA) NEGATIVE (NEGATIVE); URINE KETONE NEGATIVE (NEGATIVE); URINE LEUK ESTERASE NEGATIVE (NEGATIVE); URINE NITRITE NEGATIVE (NEGATIVE); URINE PROTEIN NEGATIVE (NEGATIVE); URINE UROBILINOGEN 0.2 mg/dL (0.2-1.0)
[2018-10-04] MEDS: FLUTICASONE PROP 0.05% 16 GM NASAL SPRAY NS SCH ×3 (12:51→22:33)
[2018-10-04] MEDS: DOCUSATE SODIUM 100 MG CAPSULE (FP) PO SCH ×2 (14:54→22:29)
[2018-10-04] MEDS: BENZOCAINE 28 GM HEMORRHOIDAL OINTMENT PR PRN ×2 (14:56→22:28)
[2018-10-04] MEDS: THIAMINE HCL 100 MG TABLET (FP) PO SCH (22:28)
[2018-10-04] MEDS: BENZOCAINE 20 % GEL TUBE MM PRN (22:33)
[2018-10-05] MEDS ORDERED: chlordiazePOXIDE HCL 10 MG CAPSULE PO PRN (05:00)
[2018-10-05] MEDS: ARTIFICIAL TEARS (POLYVINYL ALCOHOL) OPTH DROPS OU SCH ×3 (06:24→22:32)
[2018-10-05] MEDS: chlordiazePOXIDE HCL 10 MG CAPSULE PO SCH ×4 (06:24→22:53)
[2018-10-05] MEDS: DOCUSATE SODIUM 100 MG CAPSULE (FP) PO SCH ×3 (06:25→22:33)
[2018-10-05] MEDS: NAPROXEN 500 MG TABLET (FP) PO SCH ×3 (06:25→22:33)
--- NOTE | 2018-10-05 09:20 | PN ---
S CIWA - CIWA Score Nausea/Vomitin Muscle Tremors: 2 Anxiety: 2 Agitation: 2 Paroxysmal Sweats: 1-Minimal Palms Moist Orientation: 0-Oriented Tacttile Disturbances: 1-Very Mild Itch/Numbness Auditory Disturbances: 1-Very Mild Visual Disturbances: 0-None Headache: 2-Mild CIWA-Ar Total Score: 13 BHS Progress Note (SOAP) Subjective: alert,irritable,anxious,interrupted sleep,nasal congestion Objective: 10/05/18 09:18 Vital Signs Temperature 97.9 F 10/05/18 09:13 Pulse Rate 89 10/05/18 09:13 Respiratory Rate 18 10/05/18 09:13 Blood Pressure 147/81 10/05/18 09:13 O2 Sat by Pulse Oximetry (%) 10/05/18 09:19 Laboratory Last Values WBC 5.5 K/mm3 (4.0-10.0) 10/04/18 07:30 RBC 4.20 M/mm3 (4.00-5.60) 10/04/18 07:30 Hgb 13.0 GM/dL (11.7-16.9) 10/04/18 07:30 Hct 38.7 % (35.4-49) 10/04/18 07:30 MCV 92.1 fl (80-96) 10/04/18 07:30 MCH 31.0 pg (25.7-33.7) 10/04/18 07:30 MCHC 33.6 g/dl (32.0-35.9) 10/04/18 07:30 RDW 13.5 % (11.9-15.9) 10/04/18 07:30 Plt Count 217 K/MM3 (134-434) D 10/04/18 07:30 MPV 8.8 fl (7.5-11.1) 10/04/18 07:30 Sodium 137 mmol/L (136-145) 10/04/18 07:30 Potassium 4.5 mmol/L (3.5-5.1) 10/04/18 07:30 Chloride 108 mmol/L (98-107) H 10/04/18 07:30 Carbon Dioxide 22 mmol/L (21-32) 10/04/18 07:30 Anion Gap 6 MMOL/L (8-16) L 10/04/18 07:30 BUN 29 mg/dL (7-18) H 10/04/18 07:30 Creatinine 1.2 mg/dL (0.55-1.3) 10/04/18 07:30 Est GFR (CKD-EPI)AfAm 74.66 10/04/18 07:30 Est GFR (CKD-EPI)NonAf 64.42 10/04/18 07:30 Random Glucose 120 mg/dL (74-106) H 10/04/18 07:30 Calcium 9.1 mg/dL (8.5-10.1) 10/04/18 07:30 Total Bilirubin 0.4 mg/dL (0.2-1) 10/04/18 07:30 AST 27 U/L (15-37) 10/04/18 07:30 ALT 37 U/L (13-61) 10/04/18 07:30 Alkaline Phosphatase 65 U/L (45-117) 10/04/18 07:30 Total Protein 7.7 g/dl (6.4-8.2) 10/04/18 07:30 Albumin 4.1 g/dl (3.4-5.0) 10/04/18 07:30 Urine Color Yellow 10/04/18 09:50 Urine Appearance Clear 10/04/18 09:50 Urine pH 5.5 (5.0-8.0) 10/04/18 09:50 Ur Specific [place] 1.026 (1.010-1.035) 10/04/18 09:50 Urine Protein Negative (NEGATIVE) 10/04/18 09:50 Urine Glucose (UA) Negative (NEGATIVE) 10/04/18 09:50 Urine Ketones Negative (NEGATIVE) 10/04/18 09:50 Urine Blood Negative (NEGATIVE) 10/04/18 09:50 Urine Nitrite Negative (NEGATIVE) 10/04/18 09:50 Urine Bilirubin Negative (NEGATIVE) 10/04/18 09:50 Urine Urobilinogen 0.2 mg/dL (0.2-1.0) 10/04/18 09:50 Ur Leukocyte Esterase Negative (NEGATIVE) 10/04/18 09:50 RPR Titer Nonreactive (NONREACTIVE) 10/04/18 07:30 Assessment: 10/05/18 09:19 withdrawal symptom Plan: bgm is 120,bgm monitoing bid,continue detox
[2018-10-05] MEDS: FLUTICASONE PROP 0.05% 16 GM NASAL SPRAY NS SCH ×2 (10:13→22:36)
[2018-10-05] MEDS: PRENATAL VITAMINS W/ FOLIC ACID TABLET (FP) PO SCH (10:13)
[2018-10-05] MEDS: MINERAL OIL/PETROLAT/WATER TOPICAL CREAM 113 GM JAR TP SCH ×2 (10:15→22:37)
[2018-10-05] MEDS: HYDROCORTISONE 0.5% TOPICAL CREAM 30 GM TUBE TP SCH (10:15)
[2018-10-05] MEDS: BENZOCAINE 28 GM HEMORRHOIDAL OINTMENT PR PRN (10:15)
[2018-10-05] MEDS: THIAMINE HCL 100 MG TABLET (FP) PO SCH (22:49)
[2018-10-06] MEDS: DOCUSATE SODIUM 100 MG CAPSULE (FP) PO SCH ×3 (06:09→23:01)
[2018-10-06] MEDS: NAPROXEN 500 MG TABLET (FP) PO SCH ×3 (06:09→23:01)
[2018-10-06] MEDS: chlordiazePOXIDE HCL 10 MG CAPSULE PO SCH ×2 (06:09→18:30)
[2018-10-06] MEDS: ARTIFICIAL TEARS (POLYVINYL ALCOHOL) OPTH DROPS OU SCH ×3 (06:10→22:59)
[2018-10-06] MEDS: MINERAL OIL/PETROLAT/WATER TOPICAL CREAM 113 GM JAR TP SCH ×2 (10:13→23:01)
[2018-10-06] MEDS: HYDROCORTISONE 0.5% TOPICAL CREAM 30 GM TUBE TP SCH (10:13)
[2018-10-06] MEDS: FLUTICASONE PROP 0.05% 16 GM NASAL SPRAY NS SCH ×2 (10:13→22:59)
[2018-10-06] MEDS: PRENATAL VITAMINS W/ FOLIC ACID TABLET (FP) PO SCH (10:14)
--- NOTE | 2018-10-06 10:15 | PN ---
S CIWA - CIWA Score Nausea/Vomitin-No Nausea/No Vomiting Muscle Tremors: None Anxiety: 1-Mildly Anxious Agitation: 1-Slight > Activity Paroxysmal Sweats: No Perspiration Orientation: 0-Oriented Tacttile Disturbances: 0-None Auditory Disturbances: 0-None Visual Disturbances: 0-None Headache: 0-None Present CIWA-Ar Total Score: 2 BHS Progress Note (SOAP) Subjective: feeling better anxiety Objective: 10/06/18 10:14 Vital Signs Temperature 98.1 F 10/06/18 09:25 Pulse Rate 96 H 10/06/18 09:25 Respiratory Rate 15 10/06/18 09:25 Blood Pressure 154/94 10/06/18 09:25 O2 Sat by Pulse Oximetry (%) aaox3 ambulating no acute distress Assessment: 10/06/18 10:14 mild withdrawal sx Plan: continue detox increase fluids d/c in am
[2018-10-06] MEDS: MAG HYDROX/AL HYDROX/SIMETH 30 ML UNIT-DOSE CUP PO PRN (15:37)
[2018-10-06] MEDS: SODIUM CHLORIDE NASAL SPRAY 44 ML BOTTLE NS PRN (22:59)
[2018-10-06] MEDS: THIAMINE HCL 100 MG TABLET (FP) PO SCH (23:01)
[2018-10-07] MEDS: DOCUSATE SODIUM 100 MG CAPSULE (FP) PO SCH ×2 (06:09→15:03)
[2018-10-07] MEDS: NAPROXEN 500 MG TABLET (FP) PO SCH ×2 (06:09→15:03)
[2018-10-07] MEDS: chlordiazePOXIDE HCL 10 MG CAPSULE PO SCH (06:09)
[2018-10-07] MEDS: ARTIFICIAL TEARS (POLYVINYL ALCOHOL) OPTH DROPS OU SCH ×2 (06:09→15:05)
[2018-10-07] MEDS: FLUTICASONE PROP 0.05% 16 GM NASAL SPRAY NS SCH (10:15)
[2018-10-07] MEDS: PRENATAL VITAMINS W/ FOLIC ACID TABLET (FP) PO SCH (10:15)
[2018-10-07] MEDS: HYDROCORTISONE 0.5% TOPICAL CREAM 30 GM TUBE TP SCH (10:16)
[2018-10-07] MEDS: MINERAL OIL/PETROLAT/WATER TOPICAL CREAM 113 GM JAR TP SCH (10:16)
--- NOTE | 2018-10-07 10:55 | DS ---
[facility] Detox Discharge Summary Admission Date: 10/03/18 Discharge Date: 10/07/18 - History Present History: Alcohol Dependence Additional Comments: Patient completed detox successfully and awaiting admission to [facility] inpatient Rehab. Patient is stable and in nad. Pertinent Past History: Alcohol dependence Nicotine dependence Obesity GERD History of PPD Positive HTN (noncompliant with medication), was on norvasc 5mg daily, will resume norvasc 5mg PO daily due to uncontrolled HTN Abdominal hernia - Physical Exam Results Vital Signs: Vital Signs Temperature 97.0 F L 10/07/18 09:10 Pulse Rate 91 H 10/07/18 09:10 Respiratory Rate 18 10/07/18 09:10 Blood Pressure 139/94 10/07/18 09:10 O2 Sat by Pulse Oximetry (%) Pertinent Admission Physical Exam Findings: Withdrawal symptoms Laboratory Tests 10/04/18 10/04/18 10/04/18 07:30 07:30 07:30 WBC 5.5 RBC 4.20 Hgb 13.0 Hct 38.7 MCV 92.1 MCH 31.0 MCHC 33.6 RDW 13.5 Plt Count 217 D MPV 8.8 Sodium 137 Potassium 4.5 Chloride 108 H Carbon Dioxide 22 Anion Gap 6 L BUN 29 H Creatinine 1.2 Est GFR (CKD-EPI)AfAm 74.66 Est GFR (CKD-EPI)NonAf 64.42 POC Glucometer Random Glucose 120 H Calcium 9.1 Total Bilirubin 0.4 AST 27 ALT 37 Alkaline Phosphatase 65 Total Protein 7.7 Albumin 4.1 Urine Color Urine Appearance Urine pH Ur Specific [place] Urine Protein Urine Glucose (UA) Urine Ketones Urine Blood Urine Nitrite Urine Bilirubin Urine Urobilinogen Ur Leukocyte Esterase RPR Titer Nonreactive 10/04/18 10/05/18 10/06/18 09:50 16:56 06:18 WBC RBC Hgb Hct MCV MCH MCHC RDW Plt Count MPV Sodium Potassium Chloride Carbon Dioxide Anion Gap BUN Creatinine Est GFR (CKD-EPI)AfAm Est GFR (CKD-EPI)NonAf POC Glucometer 104 129 Random Glucose Calcium Total Bilirubin AST ALT Alkaline Phosphatase Total Protein Albumin Urine Color Yellow Urine Appearance Clear Urine pH 5.5 Ur Specific [place] 1.026 Urine Protein Negative Urine Glucose (UA) Negative Urine Ketones Negative Urine Blood Negative Urine Nitrite Negative Urine Bilirubin Negative Urine Urobilinogen 0.2 Ur Leukocyte Esterase Negative RPR Titer 10/07/18 06:11 WBC RBC Hgb Hct MCV MCH MCHC RDW Plt Count MPV Sodium Potassium Chloride Carbon Dioxide Anion Gap BUN Creatinine Est GFR (CKD-EPI)AfAm Est GFR (CKD-EPI)NonAf POC Glucometer 132 Random Glucose Calcium Total Bilirubin AST ALT Alkaline Phosphatase Total Protein Albumin Urine Color Urine Appearance Urine pH Ur Specific [place] Urine Protein Urine Glucose (UA) Urine Ketones Urine Blood Urine Nitrite Urine Bilirubin Urine Urobilinogen Ur Leukocyte Esterase RPR Titer Labs reviewed: bun 20 (encouraged PO water hydration), glucose elevated (129) which could be r/t withdrawal or possible prediabetes as patient is obese ( encouraged to drink more water and to avoid or minimize sugary intake and staying active as tolerated to lose weight). Follow up with PCP for monitoring post discharge. - Treatment Hospital Course: Detox Protocol Followed, Detoxed Safely, Responded well, Discharged Condition Good, Rehab Referral Accepted Patient has Accepted a Rehab Referral to: [facility] - Medication Discharge Medications: Ambulatory Orders Hydrocortisone Acetate [Anusol Hc Suppository -] 25 mg RC HS #5 supp.rect Polyvinyl Alcohol [Artificial Tears] 1 drop OP TID #1 drops 10/31/17 Sodium Chloride Nasal [place] [[place] Nasal [place] -] 2 spray NS Q6H PRN #1 spray 10/31/17 Hydrocortisone 0.5% Cream [Hytone 0.5% Cream -] 1 applic TP DAILY 01/29/18 Naproxen [Naprosyn -] 500 mg PO TID 06/20/18 Amlodipine Besylate [Norvasc -] 5 mg PO DAILY #14 tablet 07/13/18 Benzocaine Oral Gel [Anbesol -] 1 applic PO BID 10/02/18 - Diagnosis (1) Alcohol dependence with uncomplicated withdrawal Current Visit: Yes Status: Acute (2) Abdominal hernia Current Visit: Yes Status: Chronic Qualifiers: Hernia type: ventral Obstruction and gangrene presence: without obstruction or gangrene Qualified Code(s): K43.9 - Ventral hernia without obstruction or gangrene (3) History of positive PPD Current Visit: Yes Status: Chronic (4) Nicotine dependence Current Visit: Yes Status: Chronic (5) Azotemia Current Visit: Yes Status: Acute (6) Hyperglycemia Current Visit: Yes Status: Acute (7) GERD (gastroesophageal reflux disease) Current Visit: Yes Status: Chronic Qualifiers: Esophagitis presence: without esophagitis Qualified Code(s): K21.9 - Gastro -esophageal reflux disease without esophagitis (8) Obesity (BMI 30.0-34.9) Current Visit: Yes Status: Chronic (9) Hypertension Current Visit: Yes Status: Chronic Qualifiers: Hypertension type: essential hypertension Qualified Code(s): I10 - Essential (primary) hypertension - AMA Did Patient Leave Against Medical Advice: No (Patient accepted admission to [facility])
[2018-10-07] MEDS ORDERED: amLODIPine BESYLATE 5 MG TABLET (FP) PO SCH (11:00)
[2018-10-07 13:39] VITALS: BP 143/92; PULSE 85; TEMP 98.8
[2018-10-07] MEDS: MAG HYDROX/AL HYDROX/SIMETH 30 ML UNIT-DOSE CUP PO PRN (15:04)
== END 2018-10-07 15:30 | disposition other institution (70) | DRG 775 ==
LOC: YASAS 18:39 → Y6N 10-03 01:09
PROVIDERS: ADMIT Surgery; ATTEND Surgery
PROC: HZ2ZZZZ Detoxification Services for Substance Abuse Treatment (ICD-10-PCS; principal; 2018-10-03)
DX: F10.230 Alcohol dependence with withdrawal, uncomplicated (principal); F17.213 Nicotine dependence, cigarettes, with withdrawal; R00.0 Tachycardia, unspecified; I10 Essential (primary) hypertension; K21.9 Gastro-esophageal reflux disease without esophagitis; K42.9 Umbilical hernia without obstruction or gangrene; K43.9 Ventral hernia without obstruction or gangrene; K64.9 Unspecified hemorrhoids; R79.89 Other specified abnormal findings of blood chemistry; R73.9 Hyperglycemia, unspecified; R76.11 Nonspecific reaction to tuberculin skin test without active tuberculosis; E66.9 Obesity, unspecified; Z68.30 Body mass index [BMI] 30.0-30.9, adult; Z88.0 Allergy status to penicillin; Z88.7 Allergy status to serum and vaccine
CPT/HCPCS: 36415; 80053; 81003; 82962; 85027; 86593; 93005; 93010

== ENCOUNTER 2018-10-07 15:40 | Inpatient (IN) | payer OTHER ==
[2018-10-07] MEDS ORDERED: IBUPROFEN 400 MG TABLET (FP) PO PRN (18:45)
[2018-10-07] MEDS ORDERED: hydrOXYzine PAMOATE 50 MG CAPSULE (FP) PO PRN (18:45)
[2018-10-07] MEDS ORDERED: LOPERAMIDE HCL 2 MG CAPSULE PO PRN (18:45)
[2018-10-07] MEDS ORDERED: MAGNESIUM CITRATE 300 ML BOTTLE PO PRN (18:45)
[2018-10-07] MEDS ORDERED: NICOTINE POLACRILEX 2 MG GUM BUC PRN (18:45)
[2018-10-07] MEDS ORDERED: guaiFENesin 200 MG/10 ML 10 ML UNIT-DOSE CUPS PO PRN (18:45)
[2018-10-07] MEDS ORDERED: MAGNESIUM HYDROX 2400MG/30ML ORAL SUSPENSION 30 ML CUP PO PRN (18:45)
[2018-10-07] MEDS ORDERED: P-EPHED 60MG/TRIPROLIDI 2.5MG TABLET PO PRN (18:45)
--- NOTE | 2018-10-07 18:45 | HP ---
[facility] Rehab Assess/Revision - Admission History Admitted to Rehab from: Y 6 Ja Date of Admission to Rehab: 10/07/18 - Vital signs Vital Signs: Vital Signs Period Temp Pulse Resp BP Sys/Laurent Pulse Ox Last 24 Hr 98.1 F 108 18 165/89 - Findings Detox History & Physical reviewed: Yes Concur with findings: Yes Comments/Additional Findings: for rehab as protocol Inpatient Rehab Admission - Rehab Decision to Admit Inpatient rehab admission?: Yes - Initial Determination Are CD services needed?: Yes Free of communicable disease: Yes Not in need of hospitalization: Yes - Rehab Admission Criteria Previous failed treatment: Yes Poor recovery environment: Yes Comorbidities: Yes Lacks judgement: No Patient is meeting Inpatient Rehab admission criteria:: Yes
[2018-10-07] MEDS: MAG HYDROX/AL HYDROX/SIMETH 30 ML UNIT-DOSE CUP PO PRN (19:02)
[2018-10-07] MEDS: THIAMINE HCL 100 MG TABLET (FP) PO SCH (21:32)
[2018-10-07] MEDS: NAPROXEN 500 MG TABLET (FP) PO PRN (21:33)
[2018-10-07] MEDS: ARTIFICIAL TEARS (POLYVINYL ALCOHOL) OPTH DROPS OU SCH (21:34)
[2018-10-07] MEDS: SODIUM CHLORIDE NASAL SPRAY 44 ML BOTTLE NS PRN (21:34)
[2018-10-07] MEDS ORDERED: MELATONIN 5 MG TABLETS PO PRN (22:00)
[2018-10-07] MEDS ORDERED: HYDROCORTISONE ACETATE 25 MG/SUPP.RECT RC SCH (22:00)
[2018-10-08] MEDS: ARTIFICIAL TEARS (POLYVINYL ALCOHOL) OPTH DROPS OU SCH ×3 (06:43→21:21)
[2018-10-08] MEDS: NAPROXEN 500 MG TABLET (FP) PO PRN ×2 (06:45→21:53)
[2018-10-08] MEDS: amLODIPine BESYLATE 5 MG TABLET (FP) PO SCH ×2 (10:22→10:26)
[2018-10-08] MEDS: PRENATAL VITAMINS W/ FOLIC ACID TABLET (FP) PO SCH (10:22)
[2018-10-08] MEDS: HYDROCORTISONE 0.5% TOPICAL CREAM 30 GM TUBE TP SCH (10:23)
[2018-10-08] MEDS: NICOTINE 21 MG/24 HOURS TOPICAL PATCH TD SCH (10:23)
[2018-10-08] MEDS: SODIUM CHLORIDE NASAL SPRAY 44 ML BOTTLE NS PRN ×2 (10:28→21:20)
[2018-10-08] MEDS ORDERED: BENZOYL PEROXIDE 5% 60 GM GEL..GRAM. TP ONE (14:53)
[2018-10-08] MEDS: LORATADINE 10 MG TABLET PO SCH (14:59)
[2018-10-08] MEDS: MAG HYDROX/AL HYDROX/SIMETH 30 ML UNIT-DOSE CUP PO PRN (14:59)
[2018-10-08] MEDS: THIAMINE HCL 100 MG TABLET (FP) PO SCH (21:20)
[2018-10-08] MEDS: DOCUSATE SODIUM 100 MG CAPSULE (FP) PO SCH (21:21)
[2018-10-08] MEDS: HYDROCORTISONE 2.5% TOPICAL CREAM 30 GM TUBE RC SCH (21:22)
[2018-10-08] MEDS ORDERED: HYDROCORTISONE 2.5% TOPICAL CREAM 30 GM TUBE TP SCH (22:00)
[2018-10-09] MEDS: ARTIFICIAL TEARS (POLYVINYL ALCOHOL) OPTH DROPS OU SCH ×3 (07:24→21:44)
[2018-10-09] MEDS ORDERED: amLODIPine BESYLATE 10 MG TABLET (FP) PO SCH ×2 (10:00)
[2018-10-09] MEDS: DOCUSATE SODIUM 100 MG CAPSULE (FP) PO SCH ×2 (10:39→21:41)
[2018-10-09] MEDS: PRENATAL VITAMINS W/ FOLIC ACID TABLET (FP) PO SCH (10:39)
[2018-10-09] MEDS: LORATADINE 10 MG TABLET PO SCH (10:39)
[2018-10-09] MEDS: amLODIPine BESYLATE 10 MG TABLET (FP) PO SCH (10:39)
[2018-10-09] MEDS: NAPROXEN 500 MG TABLET (FP) PO PRN ×2 (10:41→21:45)
[2018-10-09] MEDS: BENZOCAINE 20 % GEL TUBE MM PRN ×2 (10:42→21:42)
[2018-10-09] MEDS: SODIUM CHLORIDE NASAL SPRAY 44 ML BOTTLE NS PRN ×3 (10:42→21:44)
[2018-10-09] MEDS: NICOTINE 21 MG/24 HOURS TOPICAL PATCH TD SCH (10:43)
[2018-10-09] MEDS: HYDROCORTISONE 2.5% TOPICAL CREAM 30 GM TUBE RC SCH ×2 (10:43→21:43)
[2018-10-09] MEDS: HYDROCORTISONE 0.5% TOPICAL CREAM 30 GM TUBE TP SCH (10:43)
[2018-10-09] MEDS: MAG HYDROX/AL HYDROX/SIMETH 30 ML UNIT-DOSE CUP PO PRN (13:35)
[2018-10-09] MEDS: THIAMINE HCL 100 MG TABLET (FP) PO SCH (21:41)
[2018-10-10] MEDS: ARTIFICIAL TEARS (POLYVINYL ALCOHOL) OPTH DROPS OU SCH ×4 (06:35→21:29)
[2018-10-10] MEDS: PRENATAL VITAMINS W/ FOLIC ACID TABLET (FP) PO SCH (10:05)
[2018-10-10] MEDS: LORATADINE 10 MG TABLET PO SCH (10:05)
[2018-10-10] MEDS: DOCUSATE SODIUM 100 MG CAPSULE (FP) PO SCH ×2 (10:05→21:28)
[2018-10-10] MEDS: amLODIPine BESYLATE 10 MG TABLET (FP) PO SCH (10:05)
[2018-10-10] MEDS: NAPROXEN 500 MG TABLET (FP) PO PRN ×2 (10:05→14:29)
[2018-10-10] MEDS: HYDROCORTISONE 0.5% TOPICAL CREAM 30 GM TUBE TP SCH (10:06)
[2018-10-10] MEDS: HYDROCORTISONE 2.5% TOPICAL CREAM 30 GM TUBE RC SCH ×2 (10:06→21:30)
[2018-10-10] MEDS: NICOTINE 21 MG/24 HOURS TOPICAL PATCH TD SCH (10:06)
[2018-10-10] MEDS: SODIUM CHLORIDE NASAL SPRAY 44 ML BOTTLE NS PRN ×3 (10:06→21:28)
[2018-10-10] MEDS: THIAMINE HCL 100 MG TABLET (FP) PO SCH (21:28)
[2018-10-10] MEDS: IBUPROFEN 400 MG TABLET (FP) PO PRN (21:31)
[2018-10-10] MEDS: BENZOCAINE 20 % GEL TUBE MM PRN (21:33)
[2018-10-11] MEDS: ARTIFICIAL TEARS (POLYVINYL ALCOHOL) OPTH DROPS OU SCH ×3 (07:01→21:40)
[2018-10-11] MEDS: MENTHOL/PHENOL 1 EACH UD MM PRN ×2 (07:15→14:35)
[2018-10-11] MEDS: PRENATAL VITAMINS W/ FOLIC ACID TABLET (FP) PO SCH (10:24)
[2018-10-11] MEDS: amLODIPine BESYLATE 10 MG TABLET (FP) PO SCH (10:24)
[2018-10-11] MEDS: LORATADINE 10 MG TABLET PO SCH (10:24)
[2018-10-11] MEDS: DOCUSATE SODIUM 100 MG CAPSULE (FP) PO SCH ×2 (10:24→21:38)
[2018-10-11] MEDS: HYDROCORTISONE 2.5% TOPICAL CREAM 30 GM TUBE RC SCH ×2 (10:25→21:40)
[2018-10-11] MEDS: NICOTINE 21 MG/24 HOURS TOPICAL PATCH TD SCH (10:26)
[2018-10-11] MEDS: BENZOCAINE 20 % GEL TUBE MM PRN (10:27)
[2018-10-11] MEDS: IBUPROFEN 400 MG TABLET (FP) PO PRN ×2 (10:28→16:50)
[2018-10-11] MEDS: HYDROCORTISONE 0.5% TOPICAL CREAM 30 GM TUBE TP SCH (10:52)
[2018-10-11] MEDS: ACETAMINOPHEN 325 MG TABLET (FP) PO PRN (14:33)
[2018-10-11] MEDS: THIAMINE HCL 100 MG TABLET (FP) PO SCH (21:38)
[2018-10-11] MEDS: SODIUM CHLORIDE NASAL SPRAY 44 ML BOTTLE NS PRN (21:39)
[2018-10-12] MEDS: ARTIFICIAL TEARS (POLYVINYL ALCOHOL) OPTH DROPS OU SCH ×3 (06:45→21:32)
[2018-10-12] MEDS: LORATADINE 10 MG TABLET PO SCH (10:17)
[2018-10-12] MEDS: amLODIPine BESYLATE 10 MG TABLET (FP) PO SCH (10:17)
[2018-10-12] MEDS: BENZOYL PEROXIDE 5% 60 GM GEL..GRAM. TP SCH (10:17)
[2018-10-12] MEDS: PRENATAL VITAMINS W/ FOLIC ACID TABLET (FP) PO SCH (10:17)
[2018-10-12] MEDS: DOCUSATE SODIUM 100 MG CAPSULE (FP) PO SCH ×2 (10:17→21:33)
[2018-10-12] MEDS: HYDROCORTISONE 2.5% TOPICAL CREAM 30 GM TUBE RC SCH ×2 (10:18→21:32)
[2018-10-12] MEDS: HYDROCORTISONE 0.5% TOPICAL CREAM 30 GM TUBE TP SCH (10:18)
[2018-10-12] MEDS: NICOTINE 21 MG/24 HOURS TOPICAL PATCH TD SCH (10:19)
[2018-10-12] MEDS: IBUPROFEN 400 MG TABLET (FP) PO PRN ×2 (10:19→16:37)
[2018-10-12] MEDS: SODIUM CHLORIDE NASAL SPRAY 44 ML BOTTLE NS PRN ×2 (10:20→21:31)
[2018-10-12] MEDS: BENZOCAINE 20 % GEL TUBE MM PRN ×2 (10:21→21:33)
[2018-10-12] MEDS: MENTHOL/PHENOL 1 EACH UD MM PRN (10:22)
[2018-10-12] MEDS: ACETAMINOPHEN 325 MG TABLET (FP) PO PRN (14:02)
[2018-10-12] MEDS: THIAMINE HCL 100 MG TABLET (FP) PO SCH (21:31)
[2018-10-12] MEDS: MAG HYDROX/AL HYDROX/SIMETH 30 ML UNIT-DOSE CUP PO PRN (21:32)
[2018-10-13] MEDS: ARTIFICIAL TEARS (POLYVINYL ALCOHOL) OPTH DROPS OU SCH ×3 (07:02→21:35)
[2018-10-13] MEDS: LORATADINE 10 MG TABLET PO SCH (10:02)
[2018-10-13] MEDS: PRENATAL VITAMINS W/ FOLIC ACID TABLET (FP) PO SCH (10:02)
[2018-10-13] MEDS: DOCUSATE SODIUM 100 MG CAPSULE (FP) PO SCH ×2 (10:02→21:32)
[2018-10-13] MEDS: amLODIPine BESYLATE 10 MG TABLET (FP) PO SCH (10:02)
[2018-10-13] MEDS: NICOTINE 21 MG/24 HOURS TOPICAL PATCH TD SCH (10:03)
[2018-10-13] MEDS: HYDROCORTISONE 2.5% TOPICAL CREAM 30 GM TUBE RC SCH ×2 (10:04→21:34)
[2018-10-13] MEDS: IBUPROFEN 400 MG TABLET (FP) PO PRN ×2 (10:04→17:00)
[2018-10-13] MEDS: BENZOYL PEROXIDE 5% 60 GM GEL..GRAM. TP SCH (10:04)
[2018-10-13] MEDS: HYDROCORTISONE 0.5% TOPICAL CREAM 30 GM TUBE TP SCH (10:04)
[2018-10-13] MEDS: BENZOCAINE 20 % GEL TUBE MM PRN ×2 (10:05→21:33)
[2018-10-13] MEDS: SODIUM CHLORIDE NASAL SPRAY 44 ML BOTTLE NS PRN (10:06)
[2018-10-13] MEDS: THIAMINE HCL 100 MG TABLET (FP) PO SCH (21:32)
[2018-10-13] MEDS: ACETAMINOPHEN 325 MG TABLET (FP) PO PRN (21:36)
[2018-10-14] MEDS: ARTIFICIAL TEARS (POLYVINYL ALCOHOL) OPTH DROPS OU SCH ×3 (06:47→21:39)
[2018-10-14] MEDS: amLODIPine BESYLATE 10 MG TABLET (FP) PO SCH (10:30)
[2018-10-14] MEDS: DOCUSATE SODIUM 100 MG CAPSULE (FP) PO SCH ×2 (10:30→21:38)
[2018-10-14] MEDS: BENZOYL PEROXIDE 5% 60 GM GEL..GRAM. TP SCH (10:31)
[2018-10-14] MEDS: NICOTINE 21 MG/24 HOURS TOPICAL PATCH TD SCH (10:31)
[2018-10-14] MEDS: LORATADINE 10 MG TABLET PO SCH (10:31)
[2018-10-14] MEDS: PRENATAL VITAMINS W/ FOLIC ACID TABLET (FP) PO SCH (10:31)
[2018-10-14] MEDS: SODIUM CHLORIDE NASAL SPRAY 44 ML BOTTLE NS PRN ×2 (10:32→21:38)
[2018-10-14] MEDS: HYDROCORTISONE 0.5% TOPICAL CREAM 30 GM TUBE TP SCH (10:32)
[2018-10-14] MEDS: IBUPROFEN 400 MG TABLET (FP) PO PRN ×2 (10:34→16:50)
[2018-10-14] MEDS: MENTHOL/PHENOL 1 EACH UD MM PRN (10:35)
[2018-10-14] MEDS: HYDROCORTISONE 2.5% TOPICAL CREAM 30 GM TUBE RC SCH ×2 (11:02→21:39)
[2018-10-14] MEDS: ACETAMINOPHEN 325 MG TABLET (FP) PO PRN (13:49)
[2018-10-14] MEDS: THIAMINE HCL 100 MG TABLET (FP) PO SCH (21:38)
[2018-10-15] MEDS: ARTIFICIAL TEARS (POLYVINYL ALCOHOL) OPTH DROPS OU SCH ×3 (07:30→21:22)
[2018-10-15] MEDS: NICOTINE 21 MG/24 HOURS TOPICAL PATCH TD SCH (10:43)
[2018-10-15] MEDS: amLODIPine BESYLATE 10 MG TABLET (FP) PO SCH (10:43)
[2018-10-15] MEDS: LORATADINE 10 MG TABLET PO SCH (10:43)
[2018-10-15] MEDS: DOCUSATE SODIUM 100 MG CAPSULE (FP) PO SCH ×2 (10:43→21:22)
[2018-10-15] MEDS: PRENATAL VITAMINS W/ FOLIC ACID TABLET (FP) PO SCH (10:43)
[2018-10-15] MEDS: IBUPROFEN 400 MG TABLET (FP) PO PRN ×2 (10:44→17:01)
[2018-10-15] MEDS: SODIUM CHLORIDE NASAL SPRAY 44 ML BOTTLE NS PRN (10:45)
[2018-10-15] MEDS: HYDROCORTISONE 2.5% TOPICAL CREAM 30 GM TUBE RC SCH ×2 (10:45→21:23)
[2018-10-15] MEDS: HYDROCORTISONE 0.5% TOPICAL CREAM 30 GM TUBE TP SCH (10:46)
[2018-10-15] MEDS: ACETAMINOPHEN 325 MG TABLET (FP) PO PRN (14:34)
[2018-10-15] MEDS: MENTHOL/PHENOL 1 EACH UD MM PRN (15:58)
[2018-10-15] MEDS: BENZOCAINE 20 % GEL TUBE MM PRN (17:00)
[2018-10-15] MEDS: THIAMINE HCL 100 MG TABLET (FP) PO SCH (21:22)
[2018-10-16 06:50] VITALS: BP 124/75; PULSE 88; TEMP 97.5
[2018-10-16] MEDS: ARTIFICIAL TEARS (POLYVINYL ALCOHOL) OPTH DROPS OU SCH (07:15)
--- NOTE | 2018-10-16 09:47 | PN ---
S Progress Note (SOAP) Subjective: PT COMPLETED REHAB AND DISCHARGING TODAY. PT MET WITH HIS COUNSELOR MS MAROGTH BOLAND AND HAS BEEN REFERRED TO [facility] FOR PSYCHOTHERAPY, [facility] FOR CD AFTERCARE. PT REPORTS HE HAS NO CURRENT PCP BUT WILL GO TO [facility] WHEN NEEDED. 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 PT IS ALERT O X 3. DENIES S/H/I. Objective: 10/16/18 10:03 Vital Signs - 24 hr 10/16/18 10/16/18 10/16/18 00:30 03:30 06:49 Temperature 97.5 F L Pulse Rate 88 Respiratory 18 18 18 Rate Blood Pressure 124/75 Assessment: 10/16/18 10:04 NAD MEDICALLY STABLE Plan: FOLLOW UP WITH CD AFTERCARE RECOMMENDED FOLLOW UP WITH PCP FOR MEDICAL MANAGEMENT WITHIN 1-2 WEEKS AFTER DISCHARGE. D/W PT THE NEED TO MAKE APPOINTMENT WITH A PCP FOR MEDICAL MANAGEMENT. ADDENDUM:PT REPORTS HE HAD A PCP DR. LICONA IN [facility] MORE THAN 3 YEARS AGO. HOWEVER, PT STATES "I CAN ALWAYS GO TO [facility] WHEN I NEED TO".
[2018-10-16] MEDS: PRENATAL VITAMINS W/ FOLIC ACID TABLET (FP) PO SCH (09:53)
[2018-10-16] MEDS: amLODIPine BESYLATE 10 MG TABLET (FP) PO SCH (09:53)
[2018-10-16] MEDS: LORATADINE 10 MG TABLET PO SCH (09:53)
[2018-10-16] MEDS: IBUPROFEN 400 MG TABLET (FP) PO PRN (09:56)
[2018-10-16] MEDS: HYDROCORTISONE 0.5% TOPICAL CREAM 30 GM TUBE TP SCH (09:57)
[2018-10-16] MEDS: NICOTINE 21 MG/24 HOURS TOPICAL PATCH TD SCH (09:57)
[2018-10-16] MEDS: HYDROCORTISONE 2.5% TOPICAL CREAM 30 GM TUBE RC SCH (09:57)
[2018-10-16] MEDS: DOCUSATE SODIUM 100 MG CAPSULE (FP) PO SCH (09:57)
== END 2018-10-16 10:00 | disposition home or self-care (01) | DRG 772 ==
LOC: YASAS 15:40 → Y5N 15:41
PROVIDERS: ADMIT Neuromusculoskeletal Medicine & OMM; ATTEND Neuromusculoskeletal Medicine & OMM
PROC: HZ42ZZZ Group Counseling for Substance Abuse Treatment, Cognitive-Behavioral (ICD-10-PCS; principal; 2018-10-07)
DX: F10.20 Alcohol dependence, uncomplicated (principal); F14.20 Cocaine dependence, uncomplicated; F12.20 Cannabis dependence, uncomplicated; F17.210 Nicotine dependence, cigarettes, uncomplicated; I10 Essential (primary) hypertension; K64.9 Unspecified hemorrhoids; K43.9 Ventral hernia without obstruction or gangrene; M54.5 Low back pain; G89.29 Other chronic pain; M19.019 Primary osteoarthritis, unspecified shoulder; H04.129 Dry eye syndrome of unspecified lacrimal gland

== ENCOUNTER 2019-02-20 13:19 | Inpatient (IN) | payer OTHER ==
[2019-02-20 15:52] VITALS: BMI 30.3
--- NOTE | 2019-02-20 17:55 | HP ---
CIWA Score Nausea/Vomitin-Mild Nausea/No Vomiting Muscle Tremors: 3 Anxiety: 1-Mildly Anxious Agitation: 4-Moderately Restless Paroxysmal Sweats: 3 (Increased facial moisture) Orientation: 0-Oriented Tacttile Disturbances: 0-None Auditory Disturbances: 0-None Visual Disturbances: 2-Mild Sensitivity (Unrelated to withdrawal) Headache: 3-Moderate CIWA-Ar Total Score: 17 - Admission Criteria OASAS Guidelines: Admission for Medically Managed Detox: Requires at least one of the followin. CIWA greater than 12 2. Seizures within the past 24 hours 3. Delirium tremens within the past 24 hours 4. Hallucinations within the past 24 hours 5. Acute intervention needed for co occurring medical disorder 6. Acute intervention needed for co occurring psychiatric disorder 7. Severe withdrawal that cannot be handled at a lower level of care (continued vomiting, continued diarrhea, abnormal vital signs) requiring intravenous medication and/or fluids 8. Patient presents the following: CIWA greater than 12 Admission Criteria Met: Admission criteria met Admitting History and Physical - Smoking History Smoking history: Current some day smoker Have you smoked in the past 12 months: Yes Aproximately how many cigarettes per day: 7 - Alcohol/Substance Use Hx Alcohol Use: Yes Admission ROS BHS - HPI Chief Complaint: Here for detox. States I'm tired. Allergies/Adverse Reactions: Allergies Allergy/AdvReac Type Severity Reaction Status Date / Time Penicillins Allergy Severe Difficulty Verified 02/20/19 15:32 Breathing tomato [Tomato] Allergy Mild Itching Verified 02/20/19 15:32 tuberculin, purified protein Allergy Rash Verified 02/20/19 15:32 deriva [Tuberculin,Purif.Prot.Deriv.] History of Present Illness: 63 yo presents w/ long history of alcohol use disorder w/ seeking admission to detox. States started back drinking in November. Utox: Negative MARITZA 0.183 Denies seizures, blackouts, overdoses. Alcohol use began at age 19. Currently drinks 2 pints vodka and 3 beers daily. States last drink just before coming here. Nicotine use began at age 19. Currently smokes 1/2 PPD. Refuses patch. Will accept gum. PMHx: Abd hernia, Ankle pain. Hemorrhoids. Denies HTN 10/03/18; EKG 06/21/18: CXR: No evidence of TB. MHHx: Denies depression or MH problems. Denies thoughts of harming self or others. SHx: Homeless. Unemployed. Denies legal issues. Search Terms: Jose Salvador, 1955 Search Date: 02/20/2019 05:54:02 PM The Drug Utilization Report below displays all of the controlled substance prescriptions, if any, that your patient has filled in the last twelve months. The information displayed on this report is compiled from pharmacy submissions to the Department, and accurately reflects the information as submitted by the pharmacies. This report was requested by: Smiley Lassiter | Reference #: [id number] There are no results for the search terms that you entered. Exam Limitations: No Limitations - Ebola screening Have you traveled outside of the country in the last 21 days: No Have you had contact with anyone from an Ebola affected area: No Have you been sick,other than usual withdrawal symptoms: Yes (Runny nose) Do you have a fever: No - Review of Systems Constitutional: Chills, Changes in sleep (Difficulty falling asleep at times) EENT: reports: Blurred Vision, Dental Problems (Toothache - states takes lidocaine for tooth pain), Other (Light sensitivity all the time; Sneezing x 3 days w/ nasal discharge) Respiratory: reports: SOB with Exertion (Walking, stair climbing.) Cardiac: reports: No Symptoms Reported GI: reports: Vomiting (Vomited earlier today), Indigestion (Acid reflux- on medications), Other (Hemorrhoids - states uses Prep H at times) : reports: No Symptoms Reported Musculoskeletal: reports: Joint Pain ((R) ankle pain x 3 weeks. X-rays twice and both negative) Integumentary: reports: No Symptoms Reported Neuro: reports: Headache (Frontal headache - "6" - dull) Endocrine: reports: No Symptoms Reported Hematology: reports: No Symptoms Reported Psychiatric: reports: Orientated x3 Patient History - Patient Medical History Hx Anemia: No Hx Asthma: No Hx Chronic Obstructive Pulmonary Disease (COPD): No Hx Cancer: No Hx Cardiac Disorders: No Hx Congestive Heart Failure: No Hx Hypertension: No Hx Hypercholesterolemia: No Hx Pacemaker: No HX Cerebrovascular Accident: No Hx Seizures: No Hx Dementia: No Hx Diabetes: No Hx Gastrointestinal Disorders: Yes (GERD) Hx Liver Disease: No Hx Genitourinary Disorders: No Hx Sexually Transmitted Disorders: No Hx Renal Disease (ESRD): No Hx Thyroid Disease: No Hx Human Immunodeficiency Virus (HIV): No (09/15 negative) Hx Hepatitis C: No Hx Depression: No Hx Suicide Attempt: No Hx Bipolar Disorder: No Hx Schizophrenia: No - Patient Surgical History Past Surgical History: No Hx Neurologic Surgery: No Hx Cataract Extraction: No Hx Cardiac Surgery: No Hx Lung Surgery: No Hx Breast Surgery: No Hx Breast Biopsy: No Hx Abdominal Surgery: No Hx Appendectomy: No Hx Cholecystectomy: No Hx Genitourinary Surgery: No Hx Section: No Hx Orthopedic Surgery: No Anesthesia Reaction: No - PPD History Previous Implant?: Yes Implanted On [facility] Admission?: Yes Date: 05/02/17 Results: positive ppd PPD to be Administered?: No - Smoking Cessation Smoking history: Current every day smoker Have you smoked in the past 12 months: Yes Aproximately how many cigarettes per day: 10 Cigars Per Day: 0 Hx Chewing Tobacco Use: No Initiated information on smoking cessation: Yes 'Breaking Loose' booklet given: 02/20/19 - Substance & Tx. History Hx Alcohol Use: Yes Hx Substance Use: Yes Substance Use Type: Alcohol, Cocaine, Marijuana Hx Substance Use Treatment: Yes (detox, rehab) - Substances abused Alcohol Substance route: Oral Frequency: Daily Amount used: 2 PINTS of vodka and 3 beers Age of first use: 14 Date of last use: 02/20/19 Marijuana/Hashish Substance route: Smoking Frequency: No use in 30 days Amount used: 1 BLUNT Age of first use: 18 Date of last use: 09/27/18 Cocaine Substance route: Inhalation Frequency: No use in 30 days Amount used: 100 hundred Age of first use: 23 Date of last use: 09/28/18 Admission Physical Exam BHS - Vital Signs Vital Signs: Vital Signs - 24 hr 02/20/19 15:43 Temperature 97.0 F L Pulse Rate 112 H Respiratory 20 Rate Blood Pressure 136/83 - Physical General Appearance: Yes: Nourished, Mild Distress, Obese, Tremorous, Sweating ( Increased facial moisture), Anxious HEENTM: Yes: Hearing grossly Normal, Normocephalic, Normal Voice, Pharynx Normal , Rhinorrhea, Orbits (Bulging eyes (R) > (L)), Other ((R) eye scleral w/ increased erythema) Respiratory: Yes: Lungs Clear, Normal Breath Sounds, No Respiratory Distress Neck: Yes: No masses,lesions,Nodules, Supple Breast: Yes: Breast Exam Deferred Cardiology: Yes: Regular Rhythm, Regular Rate, S1, S2 Abdominal: Yes: Normal Bowel Sounds, Non Tender, Protuberent, Hernia (Extensive umbilical and ventral hernias. Non-tender), Other (No external hemorrhoids seen) Genitourinary: Yes: Within Normal Limits Back: Yes: Normal Inspection Musculoskeletal: Yes: full range of Motion, Other (Tenderness (R) ankle. From. No increased swelling or erythema.) Extremities: Yes: Normal Capillary Refill, Tremors 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: Yes: Fully Oriented, Alert, Motor Strength 5/5 Integumentary: Yes: Diaphoresis (Increased facial moisture) Lymphatic: Yes: Within Normal Limits - Diagnostic (1) Nasal discharge Current Visit: Yes Status: Chronic (2) Alcohol dependence with uncomplicated withdrawal Current Visit: Yes Status: Acute (3) Abdominal hernia Current Visit: Yes Status: Chronic Qualifiers: Hernia type: other abdominal hernia Obstruction and gangrene presence: without obstruction or gangrene Qualified Code(s): K45.8 - Other specified abdominal hernia without obstruction or gangrene Comment: Umbilica and ventral hernias (4) Dry eyes Current Visit: Yes Status: Chronic Comment: with sensitivity to light (5) GERD (gastroesophageal reflux disease) Current Visit: No Status: Chronic Qualifiers: Esophagitis presence: without esophagitis Qualified Code(s): K21.9 - Gastro -esophageal reflux disease without esophagitis (6) History of positive PPD Current Visit: Yes Status: Chronic (7) Obesity (BMI 30.0-34.9) Current Visit: Yes Status: Chronic (8) Umbilical hernia Current Visit: Yes Status: Chronic Qualifiers: Obstruction and gangrene presence: without obstruction or gangrene Qualified Code(s): K42.9 - Umbilical hernia without obstruction or gangrene (9) Bulging eyes Current Visit: Yes Status: Chronic (10) History of hemorrhoids Current Visit: Yes Status: Chronic Comment: No external hemorrhoids seen Cleared for Admission BHS - Detox or Rehab Detox Regimen/Protocol: Librium Claeared for Rehab Admission: No Breathalyzer - Breathalyzer Breathalyzer: 0.183 Urine Drug Screen - Test Device Lot number: [id number] Expiration date: 10/28/20 - Control Is test valid?: Yes - Results Drug screen NEGATIVE: Yes Inpatient Rehab Admission - Rehab Decision to Admit Inpatient rehab admission?: No
[2019-02-20] MEDS ORDERED: chlordiazePOXIDE HCL 10 MG CAPSULE PO PRN (18:24)
[2019-02-20] MEDS ORDERED: MELATONIN 5 MG TABLETS PO PRN (18:24)
[2019-02-20] MEDS ORDERED: BISMUTH SUBSALICYLATE 524 MG/30 ML UD PO PRN (18:24)
[2019-02-20] MEDS ORDERED: IBUPROFEN 400 MG TABLET (FP) PO PRN (18:24)
[2019-02-20] MEDS ORDERED: MAGNESIUM HYDROX 2400MG/30ML ORAL SUSPENSION 30 ML CUP PO PRN (18:24)
[2019-02-20] MEDS ORDERED: MAGNESIUM CITRATE 300 ML BOTTLE PO PRN (18:24)
[2019-02-20] MEDS ORDERED: METHOCARBAMOL 500 MG TABLET PO PRN (18:24)
[2019-02-20] MEDS ORDERED: MAG HYDROX/AL HYDROX/SIMETH 30 ML UNIT-DOSE CUP PO PRN (18:24)
[2019-02-20] MEDS ORDERED: NICOTINE POLACRILEX 2 MG GUM BUC PRN (18:24)
[2019-02-20] MEDS ORDERED: ARTIFICIAL TEARS (POLYVINYL ALCOHOL) OPTH DROPS OU PRN (18:27)
[2019-02-20] MEDS ORDERED: P-EPHED 60MG/TRIPROLIDI 2.5MG TABLET PO PRN (18:30)
[2019-02-20] MEDS ORDERED: BENZOCAINE 20 % GEL TUBE MM PRN (18:34)
[2019-02-20] MEDS: BENZOCAINE 28 GM HEMORRHOIDAL OINTMENT PR SCH (22:47)
[2019-02-20] MEDS: THIAMINE HCL 100 MG TABLET (FP) PO SCH (22:47)
[2019-02-20] MEDS: chlordiazePOXIDE HCL 25 MG CAPSULE PO SCH (22:47)
[2019-02-21] MEDS: chlordiazePOXIDE HCL 25 MG CAPSULE PO SCH ×3 (05:27→22:04)
[2019-02-21] MEDS: PANTOPRAZOLE 20 MG TABLET (FP) PO SCH ×2 (06:19→17:02)
[2019-02-21 09:59] LABS: HEMOGLOBIN 12.8 GM/dL (11.7-16.9); MCH 30.8 pg (25.7-33.7); MCHC 33.8 g/dl (32.0-35.9); MEAN CELL VOLUME 91.3 fl (80-96); PLATELET COUNT 197 K/MM3 (134-434); RBC 4.16 M/mm3 (4.00-5.60); RDW 15.3 % (11.9-15.9); WHITE BLOOD COUNT 8.5 K/mm3 (4.0-10.0)
[2019-02-21 10:17] LABS: ALBUMIN 3.8 g/dl (3.4-5.0); BILIRUBIN,TOTAL 0.8 mg/dL (0.2-1); BLOOD UREA NITROGEN 17.6 mg/dL (7-18); CALCIUM 8.5 mg/dL (8.5-10.1); CREATININE 1.2 mg/dL (0.55-1.3); TOT PROT 6.8 g/dl (6.4-8.2)
[2019-02-21] MEDS: LORATADINE 10 MG TABLET PO SCH (10:38)
[2019-02-21] MEDS: BENZOCAINE 28 GM HEMORRHOIDAL OINTMENT PR SCH ×2 (10:38→22:05)
[2019-02-21] MEDS: PRENATAL VITAMINS W/ FOLIC ACID TABLET (FP) PO SCH (10:39)
--- NOTE | 2019-02-21 11:51 | PN ---
[facility] CIWA - CIWA Score Nausea/Vomitin-Mild Nausea/No Vomiting Muscle Tremors: 4-Moderate,w/Arms Extend Anxiety: 4-Mod. Anxious/Guarded Agitation: 3 Paroxysmal Sweats: 2 Orientation: 0-Oriented Tacttile Disturbances: 1-Very Mild Itch/Numbness Auditory Disturbances: 0-None Visual Disturbances: 0-None Headache: 0-None Present CIWA-Ar Total Score: 15 BHS Progress Note (SOAP) Subjective: doing well with librium detox regimen report taking metformin for A1C 5.7 bid writer call prefers pharmacy [phone] for dosage verification no record of metformin begin bgm acbk encourage weight loss long history of hemorrhoid encourage banzocaine pr report hard stool encourage MOM Objective: 02/21/19 11:55 Vital Signs Temperature 98 F 02/21/19 09:18 Pulse Rate 115 H 02/21/19 09:18 Respiratory Rate 18 02/21/19 09:18 Blood Pressure 133/81 02/21/19 09:18 O2 Sat by Pulse Oximetry (%) Laboratory Last Values WBC 8.5 K/mm3 (4.0-10.0) 02/21/19 08:15 RBC 4.16 M/mm3 (4.00-5.60) 02/21/19 08:15 Hgb 12.8 GM/dL (11.7-16.9) 02/21/19 08:15 Hct 38.0 % (35.4-49) 02/21/19 08:15 MCV 91.3 fl (80-96) 02/21/19 08:15 MCH 30.8 pg (25.7-33.7) 02/21/19 08:15 MCHC 33.8 g/dl (32.0-35.9) 02/21/19 08:15 RDW 15.3 % (11.9-15.9) D 02/21/19 08:15 Plt Count 197 K/MM3 (134-434) 02/21/19 08:15 MPV 9.0 fl (7.5-11.1) 02/21/19 08:15 Sodium 138 mmol/L (136-145) 02/21/19 08:15 Potassium 4.0 mmol/L (3.5-5.1) 02/21/19 08:15 Chloride 105 mmol/L (98-107) 02/21/19 08:15 Carbon Dioxide 24 mmol/L (21-32) 02/21/19 08:15 Anion Gap 9 MMOL/L (8-16) 02/21/19 08:15 BUN 17.6 mg/dL (7-18) 02/21/19 08:15 Creatinine 1.2 mg/dL (0.55-1.3) 02/21/19 08:15 Est GFR (CKD-EPI)AfAm 74.66 02/21/19 08:15 Est GFR (CKD-EPI)NonAf 64.42 02/21/19 08:15 Random Glucose 145 mg/dL (74-106) H 02/21/19 08:15 Calcium 8.5 mg/dL (8.5-10.1) 02/21/19 08:15 Total Bilirubin 0.8 mg/dL (0.2-1) 02/21/19 08:15 AST 29 U/L (15-37) 02/21/19 08:15 ALT 38 U/L (13-61) 02/21/19 08:15 Alkaline Phosphatase 81 U/L (45-117) 02/21/19 08:15 Total Protein 6.8 g/dl (6.4-8.2) 02/21/19 08:15 Albumin 3.8 g/dl (3.4-5.0) 02/21/19 08:15 TSH 1.07 uIU/ml (0.358-3.74) 02/21/19 08:15 lab noted fasting glucose Assessment: 02/21/19 11:55 alcohol withdrawal sx Plan: continue librium detox regimen
[2019-02-21] MEDS: ARTIFICIAL TEARS (POLYVINYL ALCOHOL) OPTH DROPS OU SCH ×2 (14:51→22:06)
[2019-02-21] MEDS: guaiFENesin 600 MG TABLET.ER (FP) PO SCH ×2 (14:52→22:04)
[2019-02-21] MEDS: BENZOCAINE 20 % GEL TUBE MM SCH ×3 (14:52→23:03)
[2019-02-21] MEDS: SODIUM CHLORIDE NASAL SPRAY 44 ML BOTTLE NS SCH ×2 (14:53→22:06)
[2019-02-21] MEDS: NAPROXEN 500 MG TABLET (FP) PO PRN (17:03)
[2019-02-21] MEDS: THIAMINE HCL 100 MG TABLET (FP) PO SCH (22:04)
[2019-02-22] MEDS: chlordiazePOXIDE 5 MG CAPSULE PO SCH ×3 (05:45→22:07)
[2019-02-22] MEDS: BENZOCAINE 20 % GEL TUBE MM SCH (06:46)
[2019-02-22] MEDS: ARTIFICIAL TEARS (POLYVINYL ALCOHOL) OPTH DROPS OU SCH ×3 (06:46→22:08)
[2019-02-22] MEDS: SODIUM CHLORIDE NASAL SPRAY 44 ML BOTTLE NS SCH (06:46)
[2019-02-22] MEDS: PANTOPRAZOLE 20 MG TABLET (FP) PO SCH ×2 (06:48→17:30)
[2019-02-22] MEDS: LORATADINE 10 MG TABLET PO SCH (09:38)
[2019-02-22] MEDS: guaiFENesin 600 MG TABLET.ER (FP) PO SCH ×2 (09:38→22:07)
[2019-02-22] MEDS: BENZOCAINE 28 GM HEMORRHOIDAL OINTMENT PR SCH ×2 (09:39→22:09)
[2019-02-22] MEDS: PRENATAL VITAMINS W/ FOLIC ACID TABLET (FP) PO SCH (09:41)
[2019-02-22] MEDS ORDERED: WITCH HAZEL 50% (TUCKS) 40 PAD/JAR PAD TP PRN (09:51)
[2019-02-22] MEDS ORDERED: SODIUM CHLORIDE NASAL SPRAY 44 ML BOTTLE NS PRN (09:53)
[2019-02-22 10:38] LABS: URINE APPEARANCE CLEAR; URINE BILIRUBIN NEGATIVE (NEGATIVE); URINE COLOR YELLOW; URINE GLUCOSE (UA) NEGATIVE (NEGATIVE); URINE KETONE NEGATIVE (NEGATIVE); URINE LEUK ESTERASE NEGATIVE (NEGATIVE); URINE NITRITE NEGATIVE (NEGATIVE); URINE PROTEIN NEGATIVE (NEGATIVE)
[2019-02-22] MEDS: HYDROCORTISONE 0.5% TOPICAL CREAM 30 GM TUBE TP SCH ×2 (10:51→22:08)
[2019-02-22] MEDS: FLUTICASONE PROP 0.05% 16 GM NASAL SPRAY NS SCH ×2 (10:55→22:08)
[2019-02-22] MEDS: NAPROXEN 500 MG TABLET (FP) PO PRN (13:43)
--- NOTE | 2019-02-22 16:58 | PN ---
[facility] CIWA - CIWA Score Nausea/Vomitin-No Nausea/No Vomiting Muscle Tremors: None Anxiety: 4-Mod. Anxious/Guarded Agitation: 4-Moderately Restless Paroxysmal Sweats: 3 Orientation: 0-Oriented Tacttile Disturbances: 2-Mild Itch/Numbness/Burn Auditory Disturbances: 0-None Visual Disturbances: 0-None Headache: 0-None Present CIWA-Ar Total Score: 13 S Progress Note (SOAP) Subjective: Sweating, Anxious, Restless, Chills. Objective: PATIENT A & O X 3, OBSERVED AMBULATING ON DETOX UNIT UNASSISTED. IN NO ACUTE DISTRESS. 02/22/19 16:56 Vital Signs Temperature 98.4 F 02/22/19 13:40 Pulse Rate 85 02/22/19 13:40 Respiratory Rate 18 02/22/19 13:40 Blood Pressure 146/86 02/22/19 13:40 O2 Sat by Pulse Oximetry (%) Laboratory Tests 02/21/19 02/21/19 02/21/19 08:15 08:15 08:15 WBC 8.5 RBC 4.16 Hgb 12.8 Hct 38.0 MCV 91.3 MCH 30.8 MCHC 33.8 RDW 15.3 D Plt Count 197 MPV 9.0 Sodium 138 Potassium 4.0 Chloride 105 Carbon Dioxide 24 Anion Gap 9 BUN 17.6 Creatinine 1.2 Est GFR (CKD-EPI)AfAm 74.66 Est GFR (CKD-EPI)NonAf 64.42 POC Glucometer Random Glucose 145 H Fasting Glucose Calcium 8.5 Total Bilirubin 0.8 AST 29 ALT 38 Alkaline Phosphatase 81 Total Protein 6.8 Albumin 3.8 TSH 1.07 Urine Color Urine Appearance Urine pH Ur Specific [place] Urine Protein Urine Glucose (UA) Urine Ketones Urine Blood Urine Nitrite Urine Bilirubin Urine Urobilinogen Ur Leukocyte Esterase RPR Titer Nonreactive 02/22/19 02/22/19 02/22/19 05:42 07:20 07:20 WBC RBC Hgb Hct MCV MCH MCHC RDW Plt Count MPV Sodium Potassium Chloride Carbon Dioxide Anion Gap BUN Creatinine Est GFR (CKD-EPI)AfAm Est GFR (CKD-EPI)NonAf POC Glucometer 131 Random Glucose Fasting Glucose 134 H Calcium Total Bilirubin AST ALT Alkaline Phosphatase Total Protein Albumin TSH Urine Color Yellow Urine Appearance Clear Urine pH 7.0 D Ur Specific [place] 1.019 Urine Protein Negative Urine Glucose (UA) Negative Urine Ketones Negative Urine Blood Negative Urine Nitrite Negative Urine Bilirubin Negative Urine Urobilinogen 1.0 Ur Leukocyte Esterase Negative RPR Titer LABS NOTED. Assessment: 02/22/19 16:56 WITHDRAWAL SYMPTOMS. HYPERGLYCEMIA. 02/22/19 16:58 Plan: CONTINUE DETOX. INCREASE DAILY PO WATER INTAKE. RESULT (ELEVATED) OF FASTING GLUCOSE LEVEL DRAWN EARLIER THIS AM NOTED. 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 PATIENT VERBALIZED UNDERSTANDING OF RECOMMENDATION.
[2019-02-22] MEDS: MENTHOL/PHENOL 1 EACH UD MM PRN (20:23)
[2019-02-22] MEDS: THIAMINE HCL 100 MG TABLET (FP) PO SCH (22:07)
[2019-02-22] MEDS: ACETAMINOPHEN 325 MG TABLET (FP) PO PRN (22:09)
[2019-02-23] MEDS ORDERED: chlordiazePOXIDE HCL 10 MG CAPSULE PO PRN
[2019-02-23] MEDS: chlordiazePOXIDE HCL 10 MG CAPSULE PO SCH ×3 (05:20→22:26)
[2019-02-23] MEDS: ARTIFICIAL TEARS (POLYVINYL ALCOHOL) OPTH DROPS OU SCH ×3 (06:59→22:27)
[2019-02-23] MEDS: PANTOPRAZOLE 20 MG TABLET (FP) PO SCH ×2 (07:00→17:29)
[2019-02-23] MEDS: guaiFENesin 600 MG TABLET.ER (FP) PO SCH ×2 (10:37→22:26)
[2019-02-23] MEDS: PRENATAL VITAMINS W/ FOLIC ACID TABLET (FP) PO SCH (10:37)
[2019-02-23] MEDS: FLUTICASONE PROP 0.05% 16 GM NASAL SPRAY NS SCH ×2 (10:37→22:27)
[2019-02-23] MEDS: LORATADINE 10 MG TABLET PO SCH (10:37)
[2019-02-23] MEDS: HYDROCORTISONE 0.5% TOPICAL CREAM 30 GM TUBE TP SCH ×2 (10:38→22:29)
[2019-02-23] MEDS: BENZOCAINE 28 GM HEMORRHOIDAL OINTMENT PR SCH ×2 (10:38→22:28)
[2019-02-23] MEDS: MENTHOL/PHENOL 1 EACH UD MM PRN (10:42)
[2019-02-23] MEDS: NAPROXEN 500 MG TABLET (FP) PO PRN (10:42)
--- NOTE | 2019-02-23 17:18 | PN ---
S CIWA - CIWA Score Nausea/Vomitin-No Nausea/No Vomiting Muscle Tremors: None Anxiety: 3 Agitation: 3 Paroxysmal Sweats: 2 Orientation: 0-Oriented Tacttile Disturbances: 2-Mild Itch/Numbness/Burn Auditory Disturbances: 0-None Visual Disturbances: 0-None Headache: 0-None Present CIWA-Ar Total Score: 10 BHS Progress Note (SOAP) Subjective: Anxious, Sweating, Restless. Objective: PATIENT A & O X 3, OBSERVED AMBULATING ON DETOX UNIT UNASSISTED. IN NO ACUTE DISTRESS. 02/23/19 17:17 Vital Signs Temperature 97.8 F 02/23/19 09:55 Pulse Rate 107 H 02/23/19 09:55 Respiratory Rate 18 02/23/19 09:55 Blood Pressure 136/81 02/23/19 09:55 O2 Sat by Pulse Oximetry (%) Laboratory Tests 02/21/19 02/21/19 02/21/19 08:15 08:15 08:15 WBC 8.5 RBC 4.16 Hgb 12.8 Hct 38.0 MCV 91.3 MCH 30.8 MCHC 33.8 RDW 15.3 D Plt Count 197 MPV 9.0 Sodium 138 Potassium 4.0 Chloride 105 Carbon Dioxide 24 Anion Gap 9 BUN 17.6 Creatinine 1.2 Est GFR (CKD-EPI)AfAm 74.66 Est GFR (CKD-EPI)NonAf 64.42 POC Glucometer Random Glucose 145 H Fasting Glucose Calcium 8.5 Total Bilirubin 0.8 AST 29 ALT 38 Alkaline Phosphatase 81 Total Protein 6.8 Albumin 3.8 TSH 1.07 Urine Color Urine Appearance Urine pH Ur Specific [place] Urine Protein Urine Glucose (UA) Urine Ketones Urine Blood Urine Nitrite Urine Bilirubin Urine Urobilinogen Ur Leukocyte Esterase RPR Titer Nonreactive 02/22/19 02/22/19 02/22/19 05:42 07:20 07:20 WBC RBC Hgb Hct MCV MCH MCHC RDW Plt Count MPV Sodium Potassium Chloride Carbon Dioxide Anion Gap BUN Creatinine Est GFR (CKD-EPI)AfAm Est GFR (CKD-EPI)NonAf POC Glucometer 131 Random Glucose Fasting Glucose 134 H Calcium Total Bilirubin AST ALT Alkaline Phosphatase Total Protein Albumin TSH Urine Color Yellow Urine Appearance Clear Urine pH 7.0 D Ur Specific [place] 1.019 Urine Protein Negative Urine Glucose (UA) Negative Urine Ketones Negative Urine Blood Negative Urine Nitrite Negative Urine Bilirubin Negative Urine Urobilinogen 1.0 Ur Leukocyte Esterase Negative RPR Titer 02/22/19 02/23/19 16:55 05:20 WBC RBC Hgb Hct MCV MCH MCHC RDW Plt Count MPV Sodium Potassium Chloride Carbon Dioxide Anion Gap BUN Creatinine Est GFR (CKD-EPI)AfAm Est GFR (CKD-EPI)NonAf POC Glucometer 152 103 Random Glucose Fasting Glucose Calcium Total Bilirubin AST ALT Alkaline Phosphatase Total Protein Albumin TSH Urine Color Urine Appearance Urine pH Ur Specific [place] Urine Protein Urine Glucose (UA) Urine Ketones Urine Blood Urine Nitrite Urine Bilirubin Urine Urobilinogen Ur Leukocyte Esterase RPR Titer LABS NOTED. 02/23/19 17:20 Assessment: 02/23/19 17:20 WITHDRAWAL SYMPTOMS. HYPERGLYCEMIA. Plan: CONTINUE DETOX. INCREASE DAILY PO WATER INTAKE. PATIENT AGAIN ADVISED TO FOLLOW-UP WITH DANCE CRITIC AFTER DISCHARGE FROM DETOX FOR GENERAL MEDICAL ASSESSMENT AND FOR ELEVATED RANDOM AND FASTING GLUCOSE LEVELS NOTED ON DETOX LABORATORY ASSESSMENTS. PATIENT VERBALIZED UNDERSTANDING OF RECOMMENDATION. COPIES OF RESULTS OF ALL LABS DRAWN WHILE ADMITTED FOR DETOX GIVEN TO PATIENT AT TIME OF DISCHARGE FROM DETOX UNIT. PATIENT SCHEDULED FOR D/C FROM DETOX UNIT TOMORROW.
[2019-02-23] MEDS: LIDOCAINE VISCOUS 2% ORAL/TOP 20 ML UNIT-DOSE CUP MM PRN (17:30)
[2019-02-23] MEDS: ACETAMINOPHEN 325 MG TABLET (FP) PO PRN (17:32)
[2019-02-23] MEDS: THIAMINE HCL 100 MG TABLET (FP) PO SCH (22:26)
[2019-02-24] MEDS ORDERED: chlordiazePOXIDE HCL 10 MG CAPSULE PO ONE (05:00)
[2019-02-24] MEDS: ARTIFICIAL TEARS (POLYVINYL ALCOHOL) OPTH DROPS OU SCH (05:53)
[2019-02-24] MEDS: PANTOPRAZOLE 20 MG TABLET (FP) PO SCH (07:06)
[2019-02-24] MEDS: PRENATAL VITAMINS W/ FOLIC ACID TABLET (FP) PO SCH (10:33)
[2019-02-24] MEDS: LORATADINE 10 MG TABLET PO SCH (10:33)
[2019-02-24] MEDS: guaiFENesin 600 MG TABLET.ER (FP) PO SCH (10:33)
[2019-02-24] MEDS: FLUTICASONE PROP 0.05% 16 GM NASAL SPRAY NS SCH (10:34)
[2019-02-24] MEDS: BENZOCAINE 28 GM HEMORRHOIDAL OINTMENT PR SCH (10:34)
[2019-02-24] MEDS: LIDOCAINE VISCOUS 2% ORAL/TOP 20 ML UNIT-DOSE CUP MM PRN (10:35)
[2019-02-24] MEDS: NAPROXEN 500 MG TABLET (FP) PO PRN (10:36)
[2019-02-24] MEDS: MENTHOL/PHENOL 1 EACH UD MM PRN (10:36)
[2019-02-24] MEDS: HYDROCORTISONE 0.5% TOPICAL CREAM 30 GM TUBE TP SCH (11:12)
[2019-02-24 13:04] VITALS: BP 151/83; PULSE 101; TEMP 97.7
--- NOTE | 2019-02-24 13:33 | DS ---
[facility] Detox Discharge Summary Admission Date: 02/20/19 Discharge Date: 02/24/19 - History Present History: Alcohol Dependence Additional Comments: 63 yeas old male admitted on 02/20/19 for alcohol withdrawal sx management treated with librium detox regimen patient is alert oriented x 3 cardiac S1S2 regular rate rhythm respiratory clear lung bilaterally on auscultation skin warm dry - Physical Exam Results Vital Signs: Vital Signs Temperature 97.7 F 02/24/19 13:03 Pulse Rate 101 H 02/24/19 13:03 Respiratory Rate 18 02/24/19 13:03 Blood Pressure 151/83 02/24/19 13:03 O2 Sat by Pulse Oximetry (%) Pertinent Admission Physical Exam Findings: alcohol withdrawal sx Laboratory Last Values WBC 8.5 K/mm3 (4.0-10.0) 02/21/19 08:15 RBC 4.16 M/mm3 (4.00-5.60) 02/21/19 08:15 Hgb 12.8 GM/dL (11.7-16.9) 02/21/19 08:15 Hct 38.0 % (35.4-49) 02/21/19 08:15 MCV 91.3 fl (80-96) 02/21/19 08:15 MCH 30.8 pg (25.7-33.7) 02/21/19 08:15 MCHC 33.8 g/dl (32.0-35.9) 02/21/19 08:15 RDW 15.3 % (11.9-15.9) D 02/21/19 08:15 Plt Count 197 K/MM3 (134-434) 02/21/19 08:15 MPV 9.0 fl (7.5-11.1) 02/21/19 08:15 Sodium 138 mmol/L (136-145) 02/21/19 08:15 Potassium 4.0 mmol/L (3.5-5.1) 02/21/19 08:15 Chloride 105 mmol/L (98-107) 02/21/19 08:15 Carbon Dioxide 24 mmol/L (21-32) 02/21/19 08:15 Anion Gap 9 MMOL/L (8-16) 02/21/19 08:15 BUN 17.6 mg/dL (7-18) 02/21/19 08:15 Creatinine 1.2 mg/dL (0.55-1.3) 02/21/19 08:15 Est GFR (CKD-EPI)AfAm 74.66 02/21/19 08:15 Est GFR (CKD-EPI)NonAf 64.42 02/21/19 08:15 POC Glucometer 122 UNITS (80-120) 02/24/19 05:51 Random Glucose 145 mg/dL (74-106) H 02/21/19 08:15 Fasting Glucose 134 mg/dL (74-106) H 02/22/19 07:20 Calcium 8.5 mg/dL (8.5-10.1) 02/21/19 08:15 Total Bilirubin 0.8 mg/dL (0.2-1) 02/21/19 08:15 AST 29 U/L (15-37) 02/21/19 08:15 ALT 38 U/L (13-61) 02/21/19 08:15 Alkaline Phosphatase 81 U/L (45-117) 02/21/19 08:15 Total Protein 6.8 g/dl (6.4-8.2) 02/21/19 08:15 Albumin 3.8 g/dl (3.4-5.0) 02/21/19 08:15 TSH 1.07 uIU/ml (0.358-3.74) 02/21/19 08:15 Urine Color Yellow 02/22/19 07:20 Urine Appearance Clear 02/22/19 07:20 Urine pH 7.0 (5.0-8.0) D 02/22/19 07:20 Ur Specific [place] 1.019 (1.010-1.035) 02/22/19 07:20 Urine Protein Negative (NEGATIVE) 02/22/19 07:20 Urine Glucose (UA) Negative (NEGATIVE) 02/22/19 07:20 Urine Ketones Negative (NEGATIVE) 02/22/19 07:20 Urine Blood Negative (NEGATIVE) 02/22/19 07:20 Urine Nitrite Negative (NEGATIVE) 02/22/19 07:20 Urine Bilirubin Negative (NEGATIVE) 02/22/19 07:20 Urine Urobilinogen 1.0 mg/dL (0.2-1.0) 02/22/19 07:20 Ur Leukocyte Esterase Negative (NEGATIVE) 02/22/19 07:20 RPR Titer Nonreactive (NONREACTIVE) 02/21/19 08:15 lab noted patient agrees A1C test for glucose tolerance testing by his primary care provider who monitoring his bp - Treatment Hospital Course: Detox Protocol Followed, Detoxed Safely, Responded well, Discharged Condition Good, Rehab Referral Accepted Patient has Accepted a Rehab Referral to: community support approach - Medication Discharge Medications: Ambulatory Orders Hydrocortisone Acetate [Anusol Hc Suppository -] 25 mg RC HS #5 supp.rect Polyvinyl Alcohol [Artificial Tears] 1 drop OP TID #1 drops 10/31/17 Hydrocortisone 0.5% Cream [Hytone 0.5% Cream -] 1 applic TP DAILY 01/29/18 Benzocaine Oral Gel [Anbesol -] 1 applic PO BID 10/02/18 Hydrocortisone 2.5% Topical Cr [Anusol-Hc -] 1 applic RC BID #1 tube 10/16/18 Loratadine [Claritin] 10 mg PO DAILY #14 tablet 10/16/18 Naproxen [Naprosyn -] 500 mg PO BID PRN #30 tablet 10/16/18 Sodium Chloride Nasal Coral [Ritchie Coral Nasal Coral -] 2 spray NS TID PRN #1 spray 10/16/18 - Diagnosis (1) Alcohol dependence with uncomplicated withdrawal Current Visit: Yes Status: Acute (2) Hemorrhoids Current Visit: Yes Status: Chronic Qualifiers: Hemorrhoid type: unspecified Qualified Code(s): K64.9 - Unspecified hemorrhoids (3) History of positive PPD Current Visit: Yes Status: Resolved (4) Obesity (BMI 30.0-34.9) Current Visit: Yes Status: Chronic (5) GERD (gastroesophageal reflux disease) Current Visit: Yes Status: Chronic Qualifiers: Esophagitis presence: without esophagitis Qualified Code(s): K21.9 - Gastro -esophageal reflux disease without esophagitis (6) Hypertension Current Visit: Yes Status: Chronic Qualifiers: Hypertension type: essential hypertension Qualified Code(s): I10 - Essential (primary) hypertension (7) Positive PPD Current Visit: No Status: Chronic (8) Substance induced mood disorder Current Visit: Yes Status: Suspected - AMA Did Patient Leave Against Medical Advice: No CIWA Score - CIWA Score Nausea/Vomitin-No Nausea/No Vomiting Muscle Tremors: None Anxiety: 1-Mildly Anxious Agitation: 2 Paroxysmal Sweats: 1-Minimal Palms Moist Orientation: 0-Oriented Tacttile Disturbances: 1-Very Mild Itch/Numbness Auditory Disturbances: 0-None Visual Disturbances: 0-None Headache: 0-None Present CIWA-Ar Total Score: 5
== END 2019-02-24 13:51 | disposition home or self-care (01) | DRG 775 ==
LOC: YASAS 13:19 → Y3N 18:43
PROVIDERS: ADMIT Allergy & Immunology; ATTEND Allergy & Immunology
PROC: HZ2ZZZZ Detoxification Services for Substance Abuse Treatment (ICD-10-PCS; principal; 2019-02-20)
DX: F10.230 Alcohol dependence with withdrawal, uncomplicated (principal); F17.210 Nicotine dependence, cigarettes, uncomplicated; F19.24 Other psychoactive substance dependence with psychoactive substance-induced mood disorder; I10 Essential (primary) hypertension; K64.9 Unspecified hemorrhoids; K45.8 Other specified abdominal hernia without obstruction or gangrene; K42.9 Umbilical hernia without obstruction or gangrene; K21.9 Gastro-esophageal reflux disease without esophagitis; J34.89 Other specified disorders of nose and nasal sinuses; E66.9 Obesity, unspecified; Z68.30 Body mass index [BMI] 30.0-30.9, adult; H04.129 Dry eye syndrome of unspecified lacrimal gland; R73.9 Hyperglycemia, unspecified; R76.11 Nonspecific reaction to tuberculin skin test without active tuberculosis; Z88.0 Allergy status to penicillin; Z91.018 Allergy to other foods; Z88.7 Allergy status to serum and vaccine; Z59.0 Homelessness
CPT/HCPCS: 36415; 80053; 81003; 82947; 82962; 84443; 85027; 86593

== ENCOUNTER 2019-02-24 13:31 | Inpatient (IN) | payer OTHER ==
[2019-02-24] MEDS ORDERED: LOPERAMIDE HCL 2 MG CAPSULE PO PRN (17:32)
[2019-02-24] MEDS ORDERED: hydrOXYzine PAMOATE 25 MG CAPSULE (FP) PO PRN (17:32)
[2019-02-24] MEDS ORDERED: MAGNESIUM CITRATE 300 ML BOTTLE PO PRN (17:32)
[2019-02-24] MEDS ORDERED: P-EPHED 60MG/TRIPROLIDI 2.5MG TABLET PO PRN (17:32)
--- NOTE | 2019-02-24 17:32 | HP ---
[facility] Rehab Assess/Revision - Admission History Admitted to Rehab from: Y 3 Ja Date of Admission to Rehab: 02/24/19 - Vital signs Vital Signs: Vital Signs Period Temp Pulse Resp BP Sys/Laurent Pulse Ox Last 24 Hr 97.9 F 100 18 129/87 - Findings Detox History & Physical reviewed: Yes Concur with findings: Yes Comments/Additional Findings: for rehab as protocol Inpatient Rehab Admission - Rehab Decision to Admit Inpatient rehab admission?: Yes - Initial Determination Are CD services needed?: Yes Free of communicable disease: Yes Not in need of hospitalization: Yes - Rehab Admission Criteria Previous failed treatment: Yes Poor recovery environment: Yes Comorbidities: Yes Lacks judgement: No Patient is meeting Inpatient Rehab admission criteria:: Yes
[2019-02-24] MEDS ORDERED: NAPROXEN 500 MG TABLET (FP) PO PRN (17:33)
[2019-02-24] MEDS: IBUPROFEN 400 MG TABLET (FP) PO PRN (19:23)
[2019-02-24] MEDS: MENTHOL/PHENOL 1 EACH UD MM PRN (19:26)
[2019-02-24] MEDS: ARTIFICIAL TEARS (POLYVINYL ALCOHOL) OPTH DROPS OU SCH (22:28)
[2019-02-24] MEDS: THIAMINE HCL 100 MG TABLET (FP) PO SCH (22:29)
[2019-02-24] MEDS: HYDROCORTISONE ACETATE 25 MG/SUPP.RECT RC SCH (22:29)
[2019-02-25] MEDS: ARTIFICIAL TEARS (POLYVINYL ALCOHOL) OPTH DROPS OU SCH ×3 (06:06→21:45)
[2019-02-25] MEDS: LORATADINE 10 MG TABLET PO SCH (11:22)
[2019-02-25] MEDS: HYDROCORTISONE 0.5% TOPICAL CREAM 30 GM TUBE TP SCH (11:23)
[2019-02-25] MEDS: PRENATAL VITAMINS W/ FOLIC ACID TABLET (FP) PO SCH (11:23)
[2019-02-25] MEDS: MAG HYDROX/AL HYDROX/SIMETH 30 ML UNIT-DOSE CUP PO PRN ×2 (13:45→22:03)
[2019-02-25] MEDS: HYDROCORTISONE ACETATE 25 MG/SUPP.RECT RC SCH (21:45)
[2019-02-25] MEDS: THIAMINE HCL 100 MG TABLET (FP) PO SCH (21:45)
[2019-02-26] MEDS: ARTIFICIAL TEARS (POLYVINYL ALCOHOL) OPTH DROPS OU SCH ×3 (05:49→21:45)
[2019-02-26] MEDS: MENTHOL/PHENOL 1 EACH UD MM PRN ×2 (05:50→18:51)
[2019-02-26] MEDS: MAG HYDROX/AL HYDROX/SIMETH 30 ML UNIT-DOSE CUP PO PRN (09:26)
[2019-02-26] MEDS: PRENATAL VITAMINS W/ FOLIC ACID TABLET (FP) PO SCH (09:27)
[2019-02-26] MEDS: HYDROCORTISONE 0.5% TOPICAL CREAM 30 GM TUBE TP SCH (09:27)
[2019-02-26] MEDS: LORATADINE 10 MG TABLET PO SCH (09:27)
[2019-02-26] MEDS: guaiFENesin 200 MG/10 ML 10 ML UNIT-DOSE CUPS PO PRN (09:30)
[2019-02-26] MEDS: IBUPROFEN 400 MG TABLET (FP) PO PRN ×2 (09:31→18:52)
[2019-02-26] MEDS ORDERED: FLUOCINONIDE 0.05% TOP OINT (15 GM TUBE) TP SCH (11:30)
[2019-02-26] MEDS: THIAMINE HCL 100 MG TABLET (FP) PO SCH (21:45)
[2019-02-26] MEDS: HYDROCORTISONE ACETATE 25 MG/SUPP.RECT RC SCH (21:45)
[2019-02-27] MEDS: ARTIFICIAL TEARS (POLYVINYL ALCOHOL) OPTH DROPS OU SCH ×3 (06:30→21:52)
[2019-02-27] MEDS: MAGNESIUM HYDROX 2400MG/30ML ORAL SUSPENSION 30 ML CUP PO PRN (06:32)
[2019-02-27] MEDS: IBUPROFEN 400 MG TABLET (FP) PO PRN (06:32)
[2019-02-27] MEDS: MENTHOL/PHENOL 1 EACH UD MM PRN ×2 (06:52→14:05)
[2019-02-27] MEDS ORDERED: PT OWN MED DRAWER 7, Y5N ONE ×3 (08:39→14:23)
[2019-02-27] MEDS: guaiFENesin 200 MG/10 ML 10 ML UNIT-DOSE CUPS PO PRN (09:48)
[2019-02-27] MEDS: FLUOCINONIDE 0.05% TOP OINT (15 GM TUBE) TP SCH (09:51)
[2019-02-27] MEDS: HYDROCORTISONE 0.5% TOPICAL CREAM 30 GM TUBE TP SCH (09:51)
[2019-02-27] MEDS: PRENATAL VITAMINS W/ FOLIC ACID TABLET (FP) PO SCH (09:52)
[2019-02-27] MEDS: LORATADINE 10 MG TABLET PO SCH (09:52)
--- NOTE | 2019-02-27 10:13 | PN ---
[facility] Progress Note (SOAP) Subjective: Patient c/o ear fullness; also needs his nasal spray and wants to discuss his AA1c results Objective: General: no apparent distress HEENTM: ears: unable to visualize TM bilaterally, cerumen, nares-patent, sinus: non-tender Lungs: clear Heart: s1 s2 Vital Signs Period Temp Pulse Resp BP Sys/Laurent Pulse Ox Last 24 Hr 97.6 F 89 18-20 159/86 02/27/19 10:09 Laboratory Last Values Hemoglobin A1c % 6.4 % (4.2-6.3) H 02/26/19 08:50 Assessment: Excess cerumen pre-diabetic 02/27/19 10:11 02/27/19 10:11 Plan: Ordered debrox and nasal spray Elevated A1c: advised patient on reducing sugar intake, increasing activity, and losing weight. Follow up with PCP upon discharge for further work-up.
[2019-02-27] MEDS: ACETAMINOPHEN 325 MG TABLET (FP) PO PRN (14:07)
[2019-02-27] MEDS: CARBAMIDE PEROXIDE 6.5% OTIC 15 ML BOTTLE AU SCH (21:52)
[2019-02-27] MEDS: THIAMINE HCL 100 MG TABLET (FP) PO SCH (21:52)
[2019-02-27] MEDS: NAPROXEN 500 MG TABLET (FP) PO SCH (21:52)
[2019-02-27] MEDS: HYDROCORTISONE ACETATE 25 MG/SUPP.RECT RC SCH (21:52)
[2019-02-27] MEDS ORDERED: SENNOSIDES 8.6MG TABLET (FP) PO SCH (22:00)
[2019-02-28] MEDS: ARTIFICIAL TEARS (POLYVINYL ALCOHOL) OPTH DROPS OU SCH ×3 (06:35→21:42)
[2019-02-28] MEDS: MAGNESIUM HYDROX 2400MG/30ML ORAL SUSPENSION 30 ML CUP PO PRN (06:36)
[2019-02-28] MEDS: ACETAMINOPHEN 325 MG TABLET (FP) PO PRN ×2 (06:36→14:25)
[2019-02-28] MEDS: MENTHOL/PHENOL 1 EACH UD MM PRN (06:53)
[2019-02-28] MEDS ORDERED: PT OWN MED DRAWER 7, Y5N ONE ×5 (08:54→19:52)
[2019-02-28] MEDS: NAPROXEN 500 MG TABLET (FP) PO SCH ×2 (10:01→21:43)
[2019-02-28] MEDS: LORATADINE 10 MG TABLET PO SCH (10:01)
[2019-02-28] MEDS: PRENATAL VITAMINS W/ FOLIC ACID TABLET (FP) PO SCH (10:01)
[2019-02-28] MEDS: CARBAMIDE PEROXIDE 6.5% OTIC 15 ML BOTTLE AU SCH ×2 (10:01→21:42)
[2019-02-28] MEDS: HYDROCORTISONE 0.5% TOPICAL CREAM 30 GM TUBE TP SCH (10:02)
[2019-02-28] MEDS: FLUOCINONIDE 0.05% TOP OINT (15 GM TUBE) TP SCH (10:03)
[2019-02-28] MEDS: guaiFENesin 200 MG/10 ML 10 ML UNIT-DOSE CUPS PO PRN (10:04)
[2019-02-28] MEDS: SODIUM CHLORIDE NASAL SPRAY 44 ML BOTTLE NS PRN (10:07)
[2019-02-28] MEDS ORDERED: BENZOCAINE 20 % GEL TUBE MM PRN (14:56)
[2019-02-28] MEDS ORDERED: LIDOCAINE VISCOUS 2% ORAL/TOP 20 ML UNIT-DOSE CUP MM PRN (14:58)
--- NOTE | 2019-02-28 15:05 | PN ---
S Progress Note (SOAP) Subjective: Patient c/o constipation and toothache. He has taken MOM x2 with no effect. Ordered senna yesterday, but he did not take it. States he has been drinking a lot of water. Did not use opiates. Objective: General: No apparent distress HEENTM: left gum swollen, cavity. Lungs: clear Heart: s1 s2 Abd: soft, non-tender, non-distended, +BS 02/28/19 15:01 Assessment: dental caries Constipation 02/28/19 15:02 Plan: Dental caries: benzocaine and lidocaine ordered. Patient to seek dental care upon discharge. Constipation: senna changed to BID, encouraged activity and fluids. Patient does not want stool softener. Will continue to monitor.
[2019-02-28] MEDS: HYDROCORTISONE 2.5% TOPICAL CREAM 30 GM TUBE PR SCH (17:36)
[2019-02-28] MEDS: FLUTICASONE PROP 0.05% 16 GM NASAL SPRAY NS SCH (21:42)
[2019-02-28] MEDS: HYDROCORTISONE ACETATE 25 MG/SUPP.RECT RC SCH (21:42)
[2019-02-28] MEDS: THIAMINE HCL 100 MG TABLET (FP) PO SCH (21:43)
[2019-02-28] MEDS: SENNOSIDES 8.6MG TABLET (FP) PO SCH (23:17)
[2019-03-01] MEDS: ARTIFICIAL TEARS (POLYVINYL ALCOHOL) OPTH DROPS OU SCH ×3 (06:04→21:17)
[2019-03-01] MEDS: ACETAMINOPHEN 325 MG TABLET (FP) PO PRN ×2 (06:05→13:14)
[2019-03-01] MEDS: MAGNESIUM HYDROX 2400MG/30ML ORAL SUSPENSION 30 ML CUP PO PRN (06:06)
[2019-03-01] MEDS ORDERED: PT OWN MED DRAWER 7, Y5N ONE ×3 (08:42→21:19)
[2019-03-01] MEDS: HYDROCORTISONE 2.5% TOPICAL CREAM 30 GM TUBE PR SCH (09:56)
[2019-03-01] MEDS: SENNOSIDES 8.6MG TABLET (FP) PO SCH ×2 (09:57→21:17)
[2019-03-01] MEDS: FLUTICASONE PROP 0.05% 16 GM NASAL SPRAY NS SCH ×2 (09:58→21:20)
[2019-03-01] MEDS: NAPROXEN 500 MG TABLET (FP) PO SCH ×2 (09:58→21:17)
[2019-03-01] MEDS: LORATADINE 10 MG TABLET PO SCH (09:58)
[2019-03-01] MEDS: CARBAMIDE PEROXIDE 6.5% OTIC 15 ML BOTTLE AU SCH ×2 (09:58→21:20)
[2019-03-01] MEDS: FLUOCINONIDE 0.05% TOP OINT (15 GM TUBE) TP SCH (10:00)
[2019-03-01] MEDS: HYDROCORTISONE 0.5% TOPICAL CREAM 30 GM TUBE TP SCH (10:02)
[2019-03-01] MEDS: PRENATAL VITAMINS W/ FOLIC ACID TABLET (FP) PO SCH (10:21)
[2019-03-01] MEDS: HYDROCORTISONE ACETATE 25 MG/SUPP.RECT RC SCH (21:17)
[2019-03-01] MEDS: THIAMINE HCL 100 MG TABLET (FP) PO SCH (21:17)
[2019-03-02] MEDS ORDERED: PT OWN MED DRAWER 7, Y5N ONE ×4 (05:28→18:35)
[2019-03-02] MEDS: ARTIFICIAL TEARS (POLYVINYL ALCOHOL) OPTH DROPS OU SCH ×3 (06:47→21:26)
[2019-03-02] MEDS: ACETAMINOPHEN 325 MG TABLET (FP) PO PRN ×2 (06:49→14:56)
[2019-03-02] MEDS: MAG HYDROX/AL HYDROX/SIMETH 30 ML UNIT-DOSE CUP PO PRN ×2 (06:49→21:28)
[2019-03-02] MEDS: MENTHOL/PHENOL 1 EACH UD MM PRN ×2 (06:53→14:55)
[2019-03-02] MEDS: HYDROCORTISONE 0.5% TOPICAL CREAM 30 GM TUBE TP SCH (09:51)
[2019-03-02] MEDS: SENNOSIDES 8.6MG TABLET (FP) PO SCH ×2 (09:52→21:27)
[2019-03-02] MEDS: FLUOCINONIDE 0.05% TOP OINT (15 GM TUBE) TP SCH (09:52)
[2019-03-02] MEDS: NAPROXEN 500 MG TABLET (FP) PO SCH ×2 (09:52→21:25)
[2019-03-02] MEDS: PRENATAL VITAMINS W/ FOLIC ACID TABLET (FP) PO SCH (09:52)
[2019-03-02] MEDS: LORATADINE 10 MG TABLET PO SCH (09:52)
[2019-03-02] MEDS: MAGNESIUM HYDROX 2400MG/30ML ORAL SUSPENSION 30 ML CUP PO PRN (09:52)
[2019-03-02] MEDS: CARBAMIDE PEROXIDE 6.5% OTIC 15 ML BOTTLE AU SCH ×2 (09:52→21:27)
[2019-03-02] MEDS: HYDROCORTISONE 2.5% TOPICAL CREAM 30 GM TUBE PR SCH (09:53)
[2019-03-02] MEDS: FLUTICASONE PROP 0.05% 16 GM NASAL SPRAY NS SCH ×2 (09:53→21:27)
[2019-03-02] MEDS: MELATONIN 5 MG TABLETS PO PRN (21:25)
[2019-03-02] MEDS: THIAMINE HCL 100 MG TABLET (FP) PO SCH (21:25)
[2019-03-02] MEDS: HYDROCORTISONE ACETATE 25 MG/SUPP.RECT RC SCH (21:26)
[2019-03-03] MEDS: ARTIFICIAL TEARS (POLYVINYL ALCOHOL) OPTH DROPS OU SCH ×3 (06:15→21:20)
[2019-03-03] MEDS: MENTHOL/PHENOL 1 EACH UD MM PRN ×3 (06:17→21:24)
[2019-03-03] MEDS: ACETAMINOPHEN 325 MG TABLET (FP) PO PRN ×2 (06:18→13:13)
[2019-03-03] MEDS: MAGNESIUM HYDROX 2400MG/30ML ORAL SUSPENSION 30 ML CUP PO PRN (06:20)
[2019-03-03] MEDS: LORATADINE 10 MG TABLET PO SCH (09:36)
[2019-03-03] MEDS: SENNOSIDES 8.6MG TABLET (FP) PO SCH ×2 (09:36→21:20)
[2019-03-03] MEDS: NAPROXEN 500 MG TABLET (FP) PO SCH ×2 (09:36→21:20)
[2019-03-03] MEDS: CARBAMIDE PEROXIDE 6.5% OTIC 15 ML BOTTLE AU SCH ×2 (09:36→21:20)
[2019-03-03] MEDS: PRENATAL VITAMINS W/ FOLIC ACID TABLET (FP) PO SCH (09:36)
[2019-03-03] MEDS: FLUTICASONE PROP 0.05% 16 GM NASAL SPRAY NS SCH ×2 (09:38→21:20)
[2019-03-03] MEDS: HYDROCORTISONE 0.5% TOPICAL CREAM 30 GM TUBE TP SCH (09:39)
[2019-03-03] MEDS: HYDROCORTISONE 2.5% TOPICAL CREAM 30 GM TUBE PR SCH (09:39)
[2019-03-03] MEDS: FLUOCINONIDE 0.05% TOP OINT (15 GM TUBE) TP SCH (09:40)
[2019-03-03] MEDS ORDERED: PT OWN MED DRAWER 7, Y5N ONE ×2 (09:40→13:05)
[2019-03-03] MEDS: guaiFENesin 200 MG/10 ML 10 ML UNIT-DOSE CUPS PO PRN ×2 (10:18→21:23)
[2019-03-03] MEDS: MELATONIN 5 MG TABLETS PO PRN (21:20)
[2019-03-03] MEDS: THIAMINE HCL 100 MG TABLET (FP) PO SCH (21:20)
[2019-03-03] MEDS: HYDROCORTISONE ACETATE 25 MG/SUPP.RECT RC SCH (21:20)
[2019-03-04] MEDS: MENTHOL/PHENOL 1 EACH UD MM PRN (06:51)
[2019-03-04] MEDS: MAGNESIUM HYDROX 2400MG/30ML ORAL SUSPENSION 30 ML CUP PO PRN (06:52)
[2019-03-04] MEDS: ACETAMINOPHEN 325 MG TABLET (FP) PO PRN (06:52)
[2019-03-04] MEDS: ARTIFICIAL TEARS (POLYVINYL ALCOHOL) OPTH DROPS OU SCH ×3 (06:53→21:44)
[2019-03-04] MEDS ORDERED: PT OWN MED DRAWER 7, Y5N ONE ×2 (08:54→15:50)
[2019-03-04] MEDS: HYDROCORTISONE 2.5% TOPICAL CREAM 30 GM TUBE PR SCH (10:44)
[2019-03-04] MEDS: NAPROXEN 500 MG TABLET (FP) PO SCH ×2 (10:44→21:45)
[2019-03-04] MEDS: SENNOSIDES 8.6MG TABLET (FP) PO SCH ×2 (10:44→21:45)
[2019-03-04] MEDS: PRENATAL VITAMINS W/ FOLIC ACID TABLET (FP) PO SCH (10:45)
[2019-03-04] MEDS: FLUTICASONE PROP 0.05% 16 GM NASAL SPRAY NS SCH ×2 (10:45→21:44)
[2019-03-04] MEDS: LORATADINE 10 MG TABLET PO SCH (10:45)
[2019-03-04] MEDS: CARBAMIDE PEROXIDE 6.5% OTIC 15 ML BOTTLE AU SCH ×2 (10:46→21:44)
[2019-03-04] MEDS: HYDROCORTISONE 0.5% TOPICAL CREAM 30 GM TUBE TP SCH (10:47)
[2019-03-04] MEDS: FLUOCINONIDE 0.05% TOP OINT (15 GM TUBE) TP SCH (11:10)
[2019-03-04] MEDS: SODIUM CHLORIDE NASAL SPRAY 44 ML BOTTLE NS PRN (15:49)
[2019-03-04] MEDS: HYDROCORTISONE ACETATE 25 MG/SUPP.RECT RC SCH (21:44)
[2019-03-04] MEDS: THIAMINE HCL 100 MG TABLET (FP) PO SCH (21:46)
[2019-03-05] MEDS: MENTHOL/PHENOL 1 EACH UD MM PRN (06:32)
[2019-03-05] MEDS: ACETAMINOPHEN 325 MG TABLET (FP) PO PRN (06:33)
[2019-03-05] MEDS: ARTIFICIAL TEARS (POLYVINYL ALCOHOL) OPTH DROPS OU SCH (06:35)
[2019-03-05 07:19] VITALS: BP 130/75; PULSE 87; TEMP 98
--- NOTE | 2019-03-05 09:32 | DS ---
[facility] Rehab Discharge Summary - [facility] Rehab Discharge Summary Admission Date: 02/24/19 Discharge Date: 03/07/19 - History Present History: Alcohol dependence, Cannabis dependence, Cocaine dependence Additional Comments: Pt is a 63 y/o male with a hx of MAGDI admitted to rehab after detox treatment completion on and discharged today. Pt met with his counselor and has been referred to CD aftercare to [facility] to follow up after discharge. Pt reports he has primary care with [place], [place]. Pertinent Past History: HTN(no med) GERD(no med) Hyperglycemia(no meds) Abdominal (Unbilical)Hernia Arthritis shoulder Allergic Rhinitis(takes claritin) Obesity - Discharge Physical Exam Vital Signs: Vital Signs Temperature 98 F 03/05/19 07:18 Pulse Rate 87 03/05/19 07:18 Respiratory Rate 20 03/05/19 07:18 Blood Pressure 130/75 03/05/19 07:18 O2 Sat by Pulse Oximetry (%) Alert o x 3 nad oob ambulating with steady gait cardiac:s1 s2 rrr lungs:cta,mimi. abdomen:soft,+bs,nt,nd extremities/skin:right lower leg edema/ankle wrapped in KELBY bandage,left leg wnl. No skin breaks noted. Pertinent Admission Physical Exam Findings: Laboratory Tests 02/26/19 08:50 Hemoglobin A1c % 6.4 H - Treatment Discharge Condition: Discharge condition good Hospital Course: Rehabilitated safely - Medication-Assisted Treatment (MAT) Medication-Assisted Treatment (MAT): No - Discharge Instructions Diet, activity, other medical instructions: Diet:Regular Activity:oob ad fe Other medical instructions:Follow up with Primary care provider at [facility] clinic within 1-2 weeks after discharge. Follw up with aftercare treatment recommendation as scheduled at [facility]. - Diagnosis (1) Alcohol dependence Status: Chronic Qualifiers: Substance use status: uncomplicated Qualified Code(s): F10.20 - Alcohol dependence, uncomplicated (2) Umbilical hernia Status: Chronic Qualifiers: Obstruction and gangrene presence: without obstruction or gangrene Qualified Code(s): K42.9 - Umbilical hernia without obstruction or gangrene (3) Obesity (BMI 30.0-34.9) Status: Chronic (4) History of hemorrhoids Status: Chronic (5) Hypertension Status: Chronic Qualifiers: Hypertension type: essential hypertension Qualified Code(s): I10 - Essential (primary) hypertension (6) Nicotine dependence Status: Chronic (7) Cannabis dependence Status: Chronic (8) Hip arthritis Status: Chronic (9) GERD (gastroesophageal reflux disease) Status: Chronic Qualifiers: Esophagitis presence: without esophagitis Qualified Code(s): K21.9 - Gastro -esophageal reflux disease without esophagitis (10) Back pain Status: Chronic Qualifiers: Back pain location: low back pain Back pain laterality: unspecified (11) Cocaine dependence Status: Chronic Qualifiers: Substance use status: uncomplicated Qualified Code(s): F14.20 - Cocaine dependence, uncomplicated - Follow-up Referral Minutes to complete discharge: 20 - AMA Did Patient Leave Against Medical Advice: No
[2019-03-05] MEDS: SENNOSIDES 8.6MG TABLET (FP) PO SCH (09:42)
[2019-03-05] MEDS: PRENATAL VITAMINS W/ FOLIC ACID TABLET (FP) PO SCH (09:42)
[2019-03-05] MEDS: LORATADINE 10 MG TABLET PO SCH (09:42)
[2019-03-05] MEDS: NAPROXEN 500 MG TABLET (FP) PO SCH (09:42)
[2019-03-05] MEDS: HYDROCORTISONE 2.5% TOPICAL CREAM 30 GM TUBE PR SCH (09:44)
[2019-03-05] MEDS: HYDROCORTISONE 0.5% TOPICAL CREAM 30 GM TUBE TP SCH (09:45)
[2019-03-05] MEDS: CARBAMIDE PEROXIDE 6.5% OTIC 15 ML BOTTLE AU SCH (09:45)
[2019-03-05] MEDS: FLUTICASONE PROP 0.05% 16 GM NASAL SPRAY NS SCH (09:45)
[2019-03-05] MEDS: FLUOCINONIDE 0.05% TOP OINT (15 GM TUBE) TP SCH (09:46)
[2019-03-05] MEDS ORDERED: PT OWN MED DRAWER 7, Y5N ONE (10:21)
== END 2019-03-05 10:25 | disposition home or self-care (01) | DRG 772 ==
LOC: YASAS 13:31 → Y3W 13:32
PROVIDERS: ADMIT Neuromusculoskeletal Medicine & OMM; ATTEND Neuromusculoskeletal Medicine & OMM
PROC: HZ42ZZZ Group Counseling for Substance Abuse Treatment, Cognitive-Behavioral (ICD-10-PCS; principal; 2019-02-24)
DX: F10.20 Alcohol dependence, uncomplicated (principal); F17.210 Nicotine dependence, cigarettes, uncomplicated; K21.9 Gastro-esophageal reflux disease without esophagitis; K02.9 Dental caries, unspecified; K59.00 Constipation, unspecified; H61.23 Impacted cerumen, bilateral; R73.03 Prediabetes; E66.9 Obesity, unspecified; Z68.30 Body mass index [BMI] 30.0-30.9, adult; Z88.0 Allergy status to penicillin; Z91.018 Allergy to other foods; Z56.0 Unemployment, unspecified; Z59.0 Homelessness
CPT/HCPCS: 83036

== ENCOUNTER 2019-05-04 13:14 | Inpatient (IN) | payer OTHER ==
[2019-05-04 16:42] VITALS: BMI 29.5
--- NOTE | 2019-05-04 20:45 | HP ---
CIWA Score Nausea/Vomitin Muscle Tremors: 3 Anxiety: 2 Agitation: 2 Paroxysmal Sweats: 2 Orientation: 1-Uncertain about Date Tacttile Disturbances: 2-Mild Itch/Numbness/Burn Auditory Disturbances: 2-Mild Harshness/Frighten Visual Disturbances: 2-Mild Sensitivity Headache: 2-Mild CIWA-Ar Total Score: 20 - Admission Criteria OASAS Guidelines: Admission for Medically Managed Detox: Requires at least one of the followin. CIWA greater than 12 2. Seizures within the past 24 hours 3. Delirium tremens within the past 24 hours 4. Hallucinations within the past 24 hours 5. Acute intervention needed for co occurring medical disorder 6. Acute intervention needed for co occurring psychiatric disorder 7. Severe withdrawal that cannot be handled at a lower level of care (continued vomiting, continued diarrhea, abnormal vital signs) requiring intravenous medication and/or fluids 8. Admitting History and Physical - Smoking History Smoking history: Current every day smoker Have you smoked in the past 12 months: Yes Aproximately how many cigarettes per day: 10 - Alcohol/Substance Use Hx Alcohol Use: Yes Admission ROS S - HPI Chief Complaint: DEPENDENT ON ETOH, COCAINE AND MARIJUANA Allergies/Adverse Reactions: Allergies Allergy/AdvReac Type Severity Reaction Status Date / Time Penicillins Allergy Severe Difficulty Verified 05/04/19 16:17 Breathing tomato [Tomato] Allergy Mild Itching Verified 05/04/19 16:17 tuberculin, purified protein Allergy Rash Verified 05/04/19 16:17 deriva [Tuberculin,Purif.Prot.Deriv.] History of Present Illness: THE PT. IS REQUESTING ADMISSION TO THE DETOX UNIT AND CAME FOR MEDICAL CLEARANCE Exam Limitations: No Limitations - Ebola screening Have you traveled outside of the country in the last 21 days: No Have you had contact with anyone from an Ebola affected area: No Have you been sick,other than usual withdrawal symptoms: No Do you have a fever: No - Review of Systems Constitutional: See HPI, Malaise, Weakness EENT: reports: See HPI Respiratory: reports: See HPI Cardiac: reports: See HPI, Edema GI: reports: See HPI, Nausea, Abdominal cramping : reports: No Symptoms Reported, See HPI Musculoskeletal: reports: See HPI, Muscle Pain, Muscle Weakness Integumentary: reports: See HPI, Sweating Neuro: reports: See HPI, Headache, Tremors, Weakness, Unsteady Gait Endocrine: reports: See HPI Hematology: reports: See HPI Psychiatric: reports: Anxious, Depressed, Disorientated Patient History - Patient Medical History Hx Anemia: No Hx Asthma: No Hx Chronic Obstructive Pulmonary Disease (COPD): No Hx Cancer: No Hx Cardiac Disorders: No Hx Congestive Heart Failure: No Hx Hypertension: Yes Hx Hypercholesterolemia: No Hx Pacemaker: No HX Cerebrovascular Accident: No Hx Seizures: No Hx Dementia: No Hx Diabetes: No Hx Gastrointestinal Disorders: No Hx Liver Disease: No Hx Genitourinary Disorders: No Hx Sexually Transmitted Disorders: No Hx Renal Disease (ESRD): No Hx Thyroid Disease: No Hx Human Immunodeficiency Virus (HIV): No (09/15 negative) Hx Hepatitis C: No Hx Depression: No Hx Suicide Attempt: No Hx Bipolar Disorder: No Hx Schizophrenia: No - Patient Surgical History Past Surgical History: No Hx Neurologic Surgery: No Hx Cataract Extraction: No Hx Cardiac Surgery: No Hx Lung Surgery: No Hx Breast Surgery: No Hx Breast Biopsy: No Hx Abdominal Surgery: No Hx Appendectomy: No Hx Cholecystectomy: No Hx Genitourinary Surgery: No Hx Section: No Hx Orthopedic Surgery: No Anesthesia Reaction: No - PPD History Date: 05/02/17 Results: positive ppd - Smoking Cessation Smoking history: Current every day smoker Have you smoked in the past 12 months: Yes Aproximately how many cigarettes per day: 10 Cigars Per Day: 0 Hx Chewing Tobacco Use: No Initiated information on smoking cessation: Yes 'Breaking Loose' booklet given: 05/04/19 - Substance & Tx. History Hx Alcohol Use: Yes Hx Substance Use: Yes Substance Use Type: Alcohol, Marijuana Hx Substance Use Treatment: Yes - Substances abused Alcohol Substance route: Oral Frequency: Daily Amount used: 2 PINTS of vodka and 3 beers Age of first use: 14 Date of last use: 05/03/19 Marijuana/Hashish Substance route: Smoking Frequency: 1-3 times last 30 days Amount used: 1 BLUNT Age of first use: 18 Date of last use: 04/02/20 Cocaine Substance route: Inhalation Frequency: 1-3 times last 30 days Amount used: 100 hundred Age of first use: 23 Date of last use: 04/21/19 Admission Physical Exam [facility] - Vital Signs Vital Signs: Vital Signs - 24 hr 05/04/19 16:32 Temperature 98.0 F Pulse Rate 100 H Respiratory 20 Rate Blood Pressure 126/76 - Physical General Appearance: Yes: No Apparent Distress, Nourished, Appropriately Dressed , Alcohol on Breath, Obese, Sweating, Anxious HEENTM: Yes: Hearing grossly Normal, Normocephalic, Normal Voice, GLEN, Pharynx Normal Respiratory: Yes: Chest Non-Tender, Lungs Clear, Normal Breath Sounds, No Respiratory Distress, No Accessory Muscle Use Neck: Yes: No masses,lesions,Nodules, Supple, Trachea in good position Breast: Yes: Breast Exam Deferred, Axillae without masses, No masses Cardiology: Yes: Regular Rhythm, S1, S2, Tachycardia Abdominal: Yes: Normal Bowel Sounds, Non Tender, Soft, Protuberent Back: Yes: Normal Inspection, Decreased Range of Motion Musculoskeletal: Yes: full range of Motion, Muscle Pain, Muscle weakness Extremities: Yes: Normal Capillary Refill, Normal Range of Motion, Non-Tender, Tremors, Swelling 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: Yes: Alert, Motor Strength 5/5, Depressed Affect Integumentary: Yes: Warm, Moist Lymphatic: Yes: Within Normal Limits - Addiitonal Findings: THE PT. IS ANSWERING TO QUESTIONS SLOWLY AND HAVING EPISODES OF DISORIENTATION - Diagnostic (1) Alcohol dependence with uncomplicated intoxication Current Visit: No Status: Chronic (2) Epigastric hernia Current Visit: No Status: Chronic (3) Cannabis dependence Current Visit: No Status: Chronic (4) Cocaine dependence Current Visit: No Status: Chronic Qualifiers: Substance use status: uncomplicated Qualified Code(s): F14.20 - Cocaine dependence, uncomplicated (5) Hypertension Current Visit: No Status: Chronic Qualifiers: Hypertension type: essential hypertension Qualified Code(s): I10 - Essential (primary) hypertension (6) Nicotine dependence Current Visit: No Status: Chronic (7) Obesity (BMI 30.0-34.9) Current Visit: No Status: Chronic Cleared for Admission [facility] - Detox or Rehab S Level of Care: Medically Supervised Detox Regimen/Protocol: Librium Breathalyzer - Breathalyzer Breathalyzer: 0.185 Urine Drug Screen - Test Device Lot number: [id number] Expiration date: 01/28/21 - Control Is test valid?: Yes - Results Drug screen NEGATIVE: Yes Inpatient Rehab Admission - Rehab Decision to Admit Inpatient rehab admission?: No
[2019-05-04] MEDS ORDERED: METHOCARBAMOL 500 MG TABLET PO PRN (20:48)
[2019-05-04] MEDS ORDERED: hydrOXYzine PAMOATE 25 MG CAPSULE (FP) PO PRN (20:48)
[2019-05-04] MEDS ORDERED: BISMUTH SUBSALICYLATE 524 MG/30 ML UD PO PRN (20:48)
[2019-05-04] MEDS ORDERED: IBUPROFEN 400 MG TABLET (FP) PO PRN (20:48)
[2019-05-04] MEDS ORDERED: MAGNESIUM CITRATE 300 ML BOTTLE PO PRN (20:48)
[2019-05-04] MEDS ORDERED: chlordiazePOXIDE HCL 25 MG CAPSULE PO ONE (20:48)
[2019-05-04] MEDS ORDERED: ACETAMINOPHEN 325 MG TABLET (FP) PO PRN ×2 (20:48)
[2019-05-04] MEDS ORDERED: NICOTINE POLACRILEX 2 MG GUM BUC PRN (20:48)
[2019-05-04] MEDS ORDERED: MENTHOL/PHENOL 1 EACH UD MM PRN (20:48)
[2019-05-04] MEDS ORDERED: chlordiazePOXIDE HCL 10 MG CAPSULE PO PRN (20:48)
[2019-05-04] MEDS ORDERED: MELATONIN 5 MG TABLETS PO PRN (20:48)
[2019-05-04] MEDS: THIAMINE HCL 100 MG TABLET (FP) PO SCH (21:59)
[2019-05-04] MEDS: chlordiazePOXIDE HCL 25 MG CAPSULE PO SCH (21:59)
[2019-05-05] MEDS: chlordiazePOXIDE HCL 25 MG CAPSULE PO SCH ×3 (06:24→22:30)
--- NOTE | 2019-05-05 10:21 | CONSULT ---
[facility] Psychiatric Consult - Data Date of interview: 05/05/19 Admission source: [facility] Identifying data: Patient is a 64 year old single male, without children, unemployed, homeless, and is not supported with financial assistance. This is one of multiple admissions for patient. Patient admitted to for alcohol dependence. Substance Abuse History: Smoking Cessation. Smoking history: Current every day smoker. Have you smoked in the past 12 months: Yes. Aproximately how many cigarettes per day: 10. Cigars Per Day: 0. Hx Chewing Tobacco Use: No. Initiated information on smoking cessation: Yes. 'Breaking Loose' booklet given : 05/04/19. - Substance & Tx. History. Hx Alcohol Use: Yes. Hx Substance Use : Yes. Substance Use Type: Alcohol, Marijuana. Hx Substance Use Treatment: Yes. - Substances abused. Alcohol. Substance route: Oral. Frequency: Daily. Amount used: 2 PINTS of vodka and 3 beers. Age of first use: 14. Date of last use: 05/03/19. Marijuana/Hashish. Substance route: Smoking. Frequency: 1-3 times last 30 days. Amount used: 1 BLUNT. Age of first use: 18. Date of last use: 04/02/20. Cocaine. Substance route: Inhalation. Frequency: 1-3 times last 30 days. Amount used: 100 hundred. Age of first use : 23. Date of last use: 04/21/19 Medical History: Significant for hypertension, GERD and a history of treatment for gonorrhea. Psychiatric History: Patient denies history of psychiatric hospitalization, outpatient care, and suicide attempt. At present patient reports poor sleep. Physical/Sexual Abuse/Trauma History: denies. Mental Status Exam - Mental Status Exam Alert and Oriented to: Time, Place, Person Cognitive Function: Good Patient Appearance: Well Groomed Mood: Withdrawn Affect: Mood Congruent Patient Behavior: Appropriate, Cooperative Speech Pattern: Clear, Appropriate Voice Loudness: Normal Thought Process: Intact, Goal Oriented Thought Disorder: Not Present Hallucinations: Denies Suicidal Ideation: Denies Homicidal Ideation: Denies Insight/Judgement: Poor Sleep: Poorly Appetite: Fair Muscle strength/Tone: Normal Gait/Station: Normal Psychiatric Findings - Problem List ([place] 1, 2,3) (1) Alcohol dependence with uncomplicated withdrawal Current Visit: Yes Status: Acute (2) Substance-induced sleep disorder Current Visit: Yes Status: Acute (3) Alcohol dependence Current Visit: Yes Status: Chronic Qualifiers: Substance use status: uncomplicated Qualified Code(s): F10.20 - Alcohol dependence, uncomplicated - Initial Treatment Plan Initial Treatment Plan: Psychoeducation provided. Detoxification in progress. Observation. Patient informed that Melatonin 5mg is available.
[2019-05-05] MEDS: PRENATAL VITAMINS W/ FOLIC ACID TABLET (FP) PO SCH (10:39)
[2019-05-05] MEDS: NICOTINE 14 MG/24 HOURS TOPICAL PATCH TD SCH (10:39)
[2019-05-05] MEDS: MAG HYDROX/AL HYDROX/SIMETH 30 ML UNIT-DOSE CUP PO PRN (13:27)
[2019-05-05 13:40] LABS: HEMATOCRIT 37.5 % (35.4-49); HEMOGLOBIN 12.5 GM/dL (11.7-16.9); MCH 31.8 pg (25.7-33.7); MCHC 33.4 g/dl (32.0-35.9); MEAN CELL VOLUME 95.2 fl (80-96); MEAN PLT VOLUME 8.2 fl (7.5-11.1); PLATELET COUNT 278 K/MM3 (134-434); RBC 3.94 M/mm3 (4.00-5.60); RDW 16.2 % (11.9-15.9); WHITE BLOOD COUNT 5.8 K/mm3 (4.0-10.0)
[2019-05-05 13:46] LABS: ALBUMIN 3.9 g/dl (3.4-5.0); BILIRUBIN,TOTAL 0.3 mg/dL (0.2-1); BLOOD UREA NITROGEN 20.2 mg/dL (7-18); CALCIUM 8.5 mg/dL (8.5-10.1); CREATININE 1.3 mg/dL (0.55-1.3); POTASSIUM 4.2 mmol/L (3.5-5.1); TOT PROT 7.3 g/dl (6.4-8.2)
--- NOTE | 2019-05-05 18:36 | PN ---
[facility] CIWA - CIWA Score Nausea/Vomitin-Mild Nausea/No Vomiting Muscle Tremors: 4-Moderate,w/Arms Extend Anxiety: 4-Mod. Anxious/Guarded Agitation: 3 Paroxysmal Sweats: 3 Orientation: 0-Oriented Tacttile Disturbances: 0-None Auditory Disturbances: 0-None Visual Disturbances: 0-None Headache: 0-None Present CIWA-Ar Total Score: 15 BHS Progress Note (SOAP) Subjective: Diarrhea, nausea, interrupted sleep. Patient requesting cough syrup and throat lozenges Objective: 05/05/19 18:30 Last Vital Signs Temp Pulse Resp BP Pulse Ox 98.2 F 106 H 17 144/77 05/05/19 17:27 05/05/19 17:27 05/05/19 17:27 05/05/19 17:27 Elevated b/p: has htn, not on med Laboratory Tests 05/05/19 05/05/19 05/05/19 07:30 07:30 07:30 WBC 5.8 RBC 3.94 L Hgb 12.5 Hct 37.5 MCV 95.2 MCH 31.8 MCHC 33.4 RDW 16.2 H Plt Count 278 D MPV 8.2 Sodium 142 Potassium 4.2 Chloride 110 H Carbon Dioxide 23 Anion Gap 10 BUN 20.2 H Creatinine 1.3 Est GFR (CKD-EPI)AfAm 67.30 Est GFR (CKD-EPI)NonAf 58.07 Random Glucose 99 Calcium 8.5 Total Bilirubin 0.3 AST 48 H ALT 54 Alkaline Phosphatase 58 Total Protein 7.3 Albumin 3.9 RPR Titer Nonreactive Labs reviewed: bun 20.2 (high) Assessment: 05/05/19 18:31 Withdrawal sxs Elevated b/p noted, Azotemia and mild transaminitis noted Plan: Continue detox Encouraged PO water intake Robitussin dm and cepacol lozenges prn as per patient's request due to intermittent cough and dry throat Elevated b/p: denies htn, could be r/t withdrawal, start clonidine prn Azotemia: encouraged to drink more water Transaminitis, mild: most likely r/t alcoholism, encouraged abstinence, follow up with PCP for monitoring
[2019-05-05] MEDS ORDERED: cloNIDine HCL 0.1 MG TABLET PO PRN (18:37)
[2019-05-05] MEDS: THIAMINE HCL 100 MG TABLET (FP) PO SCH (22:30)
[2019-05-06] MEDS: chlordiazePOXIDE 5 MG CAPSULE PO SCH ×3 (06:18→22:24)
[2019-05-06] MEDS: NICOTINE 14 MG/24 HOURS TOPICAL PATCH TD SCH (10:13)
[2019-05-06] MEDS: PRENATAL VITAMINS W/ FOLIC ACID TABLET (FP) PO SCH (10:13)
[2019-05-06] MEDS: BENZOCAINE/MENTH/CETYLPYRD CL 1 EACH LOZENGE MM PRN ×3 (10:15→22:27)
[2019-05-06] MEDS: guaiFENesin/D-METHORPHAN HB 10 ML UNIT-DOSE CUPS PO PRN ×3 (10:16→22:27)
[2019-05-06] MEDS ORDERED: HYDROCORTISONE 0.5% TOPICAL CREAM 30 GM TUBE TP PRN (10:18)
[2019-05-06] MEDS ORDERED: FLUTICASONE PROP 0.05% 16 GM NASAL SPRAY NS SCH (10:30)
--- NOTE | 2019-05-06 11:42 | PN ---
S CIWA - CIWA Score Nausea/Vomitin-No Nausea/No Vomiting Muscle Tremors: 3 Anxiety: 2 Agitation: 3 Paroxysmal Sweats: 2 Orientation: 0-Oriented Tacttile Disturbances: 0-None Auditory Disturbances: 0-None Visual Disturbances: 0-None Headache: 0-None Present CIWA-Ar Total Score: 10 S Progress Note (SOAP) Subjective: dry/scaly face with bumps dry/congestion nose hemorrhoids body aches sweats Objective: 05/06/19 11:41 Vital Signs Temperature 98.2 F 05/06/19 09:43 Pulse Rate 104 H 05/06/19 09:43 Respiratory Rate 18 05/06/19 09:43 Blood Pressure 140/68 05/06/19 09:43 O2 Sat by Pulse Oximetry (%) Laboratory Tests 05/05/19 05/05/19 05/05/19 07:30 07:30 07:30 WBC 5.8 RBC 3.94 L Hgb 12.5 Hct 37.5 MCV 95.2 MCH 31.8 MCHC 33.4 RDW 16.2 H Plt Count 278 D MPV 8.2 Sodium 142 Potassium 4.2 Chloride 110 H Carbon Dioxide 23 Anion Gap 10 BUN 20.2 H Creatinine 1.3 Est GFR (CKD-EPI)AfAm 67.30 Est GFR (CKD-EPI)NonAf 58.07 Random Glucose 99 Calcium 8.5 Total Bilirubin 0.3 AST 48 H ALT 54 Alkaline Phosphatase 58 Total Protein 7.3 Albumin 3.9 RPR Titer Nonreactive aaox3 ambulating no acute distress Assessment: 05/06/19 11:41 withdrawals Plan: continue detox increase fluids flonase bid hytone anusol qhs naproxen 500mg bid prn
[2019-05-06] MEDS: NAPROXEN 500 MG TABLET (FP) PO PRN ×2 (18:41→22:24)
[2019-05-06] MEDS: THIAMINE HCL 100 MG TABLET (FP) PO SCH (22:24)
[2019-05-06] MEDS: MAGNESIUM HYDROX 2400MG/30ML ORAL SUSPENSION 30 ML CUP PO PRN (22:27)
[2019-05-06] MEDS: FLUTICASONE PROP 0.05% 16 GM NASAL SPRAY NS SCH (22:28)
[2019-05-06] MEDS: HYDROCORTISONE 2.5% TOPICAL CREAM 30 GM TUBE PR SCH (22:28)
[2019-05-07] MEDS ORDERED: chlordiazePOXIDE HCL 10 MG CAPSULE PO PRN
[2019-05-07] MEDS: chlordiazePOXIDE HCL 10 MG CAPSULE PO SCH ×3 (05:17→21:41)
[2019-05-07] MEDS: MAG HYDROX/AL HYDROX/SIMETH 30 ML UNIT-DOSE CUP PO PRN ×2 (09:13→18:54)
[2019-05-07] MEDS: FLUTICASONE PROP 0.05% 16 GM NASAL SPRAY NS SCH ×2 (09:13→21:40)
[2019-05-07] MEDS: NAPROXEN 500 MG TABLET (FP) PO PRN ×2 (09:13→21:41)
[2019-05-07] MEDS: NICOTINE 14 MG/24 HOURS TOPICAL PATCH TD SCH (09:13)
[2019-05-07] MEDS ORDERED: ARTIFICIAL TEARS (POLYVINYL ALCOHOL) OPTH DROPS OU PRN (09:25)
[2019-05-07] MEDS ORDERED: SODIUM CHLORIDE NASAL SPRAY 44 ML BOTTLE NS PRN (09:25)
[2019-05-07] MEDS: PRENATAL VITAMINS W/ FOLIC ACID TABLET (FP) PO SCH (10:17)
--- NOTE | 2019-05-07 11:41 | PN ---
S CIWA - CIWA Score Nausea/Vomitin-No Nausea/No Vomiting Muscle Tremors: 2 Anxiety: 1-Mildly Anxious Agitation: 1-Slight > Activity Paroxysmal Sweats: No Perspiration Orientation: 0-Oriented Tacttile Disturbances: 0-None Auditory Disturbances: 0-None Visual Disturbances: 0-None Headache: 0-None Present CIWA-Ar Total Score: 4 BHS Progress Note (SOAP) Subjective: dry eyes nasal dryness Objective: 05/07/19 11:40 Vital Signs Temperature 97.7 F 05/07/19 09:38 Pulse Rate 83 05/07/19 09:38 Respiratory Rate 18 05/07/19 09:38 Blood Pressure 143/85 05/07/19 09:38 O2 Sat by Pulse Oximetry (%) aaox3 ambulating no acute distress Assessment: 05/07/19 11:40 mild withdrawals Plan: ocean spray artificial tears d/c in am
[2019-05-07] MEDS: guaiFENesin/D-METHORPHAN HB 10 ML UNIT-DOSE CUPS PO PRN ×2 (14:16→21:40)
[2019-05-07] MEDS: BENZOCAINE/MENTH/CETYLPYRD CL 1 EACH LOZENGE MM PRN ×2 (14:16→21:44)
[2019-05-07] MEDS: MAGNESIUM HYDROX 2400MG/30ML ORAL SUSPENSION 30 ML CUP PO PRN (21:40)
[2019-05-07] MEDS: THIAMINE HCL 100 MG TABLET (FP) PO SCH (21:42)
[2019-05-07] MEDS: HYDROCORTISONE 2.5% TOPICAL CREAM 30 GM TUBE PR SCH (21:44)
[2019-05-08] MEDS ORDERED: chlordiazePOXIDE HCL 10 MG CAPSULE PO ONE (05:00)
--- NOTE | 2019-05-08 08:43 | DS ---
[facility] Detox Discharge Summary Admission Date: 05/04/19 Discharge Date: 05/08/19 - History Present History: Alcohol Dependence, Cannabis Dependence, Cocaine Dependence - Physical Exam Results Vital Signs: Vital Signs Temperature 97.3 F L 05/08/19 06:47 Pulse Rate 75 05/08/19 06:47 Respiratory Rate 18 05/08/19 06:47 Blood Pressure 158/99 05/08/19 06:47 O2 Sat by Pulse Oximetry (%) Pertinent Admission Physical Exam Findings: Vital Signs Temperature 97.3 F L 05/08/19 06:47 Pulse Rate 75 05/08/19 06:47 Respiratory Rate 18 05/08/19 06:47 Blood Pressure 158/99 05/08/19 06:47 O2 Sat by Pulse Oximetry (%) Laboratory Tests 05/05/19 05/05/19 05/05/19 07:30 07:30 07:30 WBC 5.8 RBC 3.94 L Hgb 12.5 Hct 37.5 MCV 95.2 MCH 31.8 MCHC 33.4 RDW 16.2 H Plt Count 278 D MPV 8.2 Sodium 142 Potassium 4.2 Chloride 110 H Carbon Dioxide 23 Anion Gap 10 BUN 20.2 H Creatinine 1.3 Est GFR (CKD-EPI)AfAm 67.30 Est GFR (CKD-EPI)NonAf 58.07 Random Glucose 99 Calcium 8.5 Total Bilirubin 0.3 AST 48 H ALT 54 Alkaline Phosphatase 58 Total Protein 7.3 Albumin 3.9 RPR Titer Nonreactive aaox3 ambulating no acute distress - Treatment Hospital Course: Detox Protocol Followed, Detoxed Safely, Responded well, Discharged Condition Good, Rehab Referral Accepted Patient has Accepted a Rehab Referral to: pt declined rehab; referral provided - Medication Discharge Medications: Ambulatory Orders Fluticasone Propionate [Flonase Allergy Relief] 2 spray IN BID 05/04/19 Naproxen [Naprosyn] 500 mg PO BID PRN 05/04/19 - Diagnosis (1) Alcohol dependence with uncomplicated withdrawal Current Visit: Yes Status: Acute (2) Substance-induced sleep disorder Current Visit: Yes Status: Acute (3) Cannabis dependence Current Visit: Yes Status: Chronic (4) Cocaine dependence Current Visit: Yes Status: Chronic Qualifiers: Substance use status: uncomplicated Qualified Code(s): F14.20 - Cocaine dependence, uncomplicated (5) Hyperglycemia Current Visit: No Status: Acute (6) Substance-induced anxiety disorder Current Visit: No Status: Acute (7) Substance-induced sleep disorder Current Visit: No Status: Acute (8) Abdominal hernia Current Visit: No Status: Chronic Qualifiers: Hernia type: other abdominal hernia Obstruction and gangrene presence: without obstruction or gangrene Qualified Code(s): K45.8 - Other specified abdominal hernia without obstruction or gangrene (9) Alcohol dependence with uncomplicated intoxication Current Visit: Yes Status: Chronic (10) Allergic rhinitis Current Visit: No Status: Chronic Qualifiers: Allergic rhinitis trigger: unspecified (11) Arthritis of shoulder Current Visit: No Status: Chronic (12) Back pain Current Visit: No Status: Chronic Qualifiers: Back pain location: low back pain Back pain laterality: unspecified (13) Bulging eyes Current Visit: No Status: Chronic (14) Cannabis abuse Current Visit: Yes Status: Chronic (15) Dry eye Current Visit: No Status: Chronic (16) Elevated blood pressure reading Current Visit: No Status: Chronic (17) GERD (gastroesophageal reflux disease) Current Visit: No Status: Chronic Qualifiers: Esophagitis presence: without esophagitis Qualified Code(s): K21.9 - Gastro -esophageal reflux disease without esophagitis (18) Hemorrhoids Current Visit: Yes Status: Chronic Qualifiers: Hemorrhoid type: unspecified Qualified Code(s): K64.9 - Unspecified hemorrhoids (19) Hip arthritis Current Visit: No Status: Chronic (20) History of hemorrhoids Current Visit: No Status: Chronic (21) Hypertension Current Visit: No Status: Chronic Qualifiers: Hypertension type: essential hypertension Qualified Code(s): I10 - Essential (primary) hypertension (22) Insomnia Current Visit: No Status: Chronic Qualifiers: Insomnia type: alcohol-induced Qualified Code(s): F10.982 - Alcohol use, unspecified with alcohol-induced sleep disorder (23) Nicotine dependence Current Visit: No Status: Chronic (24) Obesity (BMI 30.0-34.9) Current Visit: Yes Status: Chronic (25) Positive PPD Current Visit: No Status: Chronic (26) Sinusitis chronic, ethmoidal Current Visit: No Status: Chronic (27) Substance-induced sleep disorder Current Visit: No Status: Chronic (28) Tachycardia Current Visit: No Status: Chronic (29) Umbilical hernia Current Visit: No Status: Chronic Qualifiers: Obstruction and gangrene presence: without obstruction or gangrene Qualified Code(s): K42.9 - Umbilical hernia without obstruction or gangrene (30) Substance induced mood disorder Current Visit: No Status: Suspected (31) History of positive PPD Current Visit: No Status: Resolved - AMA Did Patient Leave Against Medical Advice: No
[2019-05-08 09:26] VITALS: BP 159/86; PULSE 86; TEMP 97.2
[2019-05-08] MEDS: MAG HYDROX/AL HYDROX/SIMETH 30 ML UNIT-DOSE CUP PO PRN (09:45)
[2019-05-08] MEDS: NICOTINE 14 MG/24 HOURS TOPICAL PATCH TD SCH (10:15)
[2019-05-08] MEDS: FLUTICASONE PROP 0.05% 16 GM NASAL SPRAY NS SCH (10:15)
[2019-05-08] MEDS: PRENATAL VITAMINS W/ FOLIC ACID TABLET (FP) PO SCH (10:15)
[2019-05-08] MEDS: NAPROXEN 500 MG TABLET (FP) PO PRN (14:03)
== END 2019-05-08 14:08 | disposition other institution (70) | DRG 774 ==
LOC: YASAS 13:14 → Y6N 21:14
PROVIDERS: ADMIT Allergy & Immunology; ATTEND Allergy & Immunology
PROC: HZ2ZZZZ Detoxification Services for Substance Abuse Treatment (ICD-10-PCS; principal; 2019-05-04)
DX: F10.230 Alcohol dependence with withdrawal, uncomplicated (principal); F14.20 Cocaine dependence, uncomplicated; F12.20 Cannabis dependence, uncomplicated; F17.210 Nicotine dependence, cigarettes, uncomplicated; F19.282 Other psychoactive substance dependence with psychoactive substance-induced sleep disorder; F19.280 Other psychoactive substance dependence with psychoactive substance-induced anxiety disorder; I10 Essential (primary) hypertension; K21.9 Gastro-esophageal reflux disease without esophagitis; J32.9 Chronic sinusitis, unspecified; K42.9 Umbilical hernia without obstruction or gangrene; H04.123 Dry eye syndrome of bilateral lacrimal glands; H05.20 Unspecified exophthalmos; K64.9 Unspecified hemorrhoids; R73.9 Hyperglycemia, unspecified; R76.11 Nonspecific reaction to tuberculin skin test without active tuberculosis; Z88.0 Allergy status to penicillin; Z86.19 Personal history of other infectious and parasitic diseases; Z91.018 Allergy to other foods; Z59.0 Homelessness; R79.89 Other specified abnormal findings of blood chemistry; R74.0 Nonspecific elevation of levels of transaminase and lactic acid dehydrogenase [LDH]
CPT/HCPCS: 36415; 80053; 85027; 86593; J0735

== ENCOUNTER 2019-06-12 15:09 | Inpatient (IN) | payer OTHER ==
[2019-06-12 18:06] VITALS: BMI 27.7
--- NOTE | 2019-06-12 19:37 | HP ---
CIWA Score Nausea/Vomitin Muscle Tremors: 4-Moderate,w/Arms Extend Anxiety: 4-Mod. Anxious/Guarded Agitation: 3 Paroxysmal Sweats: 2 Orientation: 0-Oriented Tacttile Disturbances: 0-None Auditory Disturbances: 0-None Visual Disturbances: 3-Moderate Sensitivity Headache: 0-None Present CIWA-Ar Total Score: 18 - Admission Criteria OASAS Guidelines: Admission for Medically Managed Detox: Requires at least one of the followin. CIWA greater than 12 2. Seizures within the past 24 hours 3. Delirium tremens within the past 24 hours 4. Hallucinations within the past 24 hours 5. Acute intervention needed for co occurring medical disorder 6. Acute intervention needed for co occurring psychiatric disorder 7. Severe withdrawal that cannot be handled at a lower level of care (continued vomiting, continued diarrhea, abnormal vital signs) requiring intravenous medication and/or fluids 8. Admitting History and Physical - Smoking History Smoking history: Current every day smoker Have you smoked in the past 12 months: Yes Aproximately how many cigarettes per day: 10 - Alcohol/Substance Use Hx Alcohol Use: Yes Admission ROS [facility] - [facility] Chief Complaint: Alcohol withdrawal symptoms Allergies/Adverse Reactions: Allergies Allergy/AdvReac Type Severity Reaction Status Date / Time Penicillins Allergy Severe Difficulty Verified 06/12/19 17:55 Breathing tomato [Tomato] Allergy Mild Itching Verified 06/12/19 17:55 tuberculin, purified protein Allergy Rash Verified 06/12/19 17:55 deriva [Tuberculin,Purif.Prot.Deriv.] History of Present Illness: 64 years old male with a long history of alcohol dependence and multiple detox admissions is seeking admission to detox. Patient's last admission was for the period 05/04/2019 - 05/08/2019. He has medical history of hypertension, allergic sinusitis, GERD, hip arthritis, dry eyes and he denies psych. history. 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 Exam Limitations: No Limitations - Ebola screening Have you traveled outside of the country in the last 21 days: No Have you been sick,other than usual withdrawal symptoms: No Do you have a fever: No - Review of Systems Constitutional: Chills, Malaise, Night Sweats, Changes in sleep EENT: reports: Recent change in vision, Other (eye sensitivity) Respiratory: reports: No Symptoms reported Cardiac: reports: No Symptoms Reported GI: reports: Poor Appetite, Poor Fluid Intake, Abdominal cramping : reports: No Symptoms Reported Musculoskeletal: reports: Back Pain Integumentary: reports: Dryness, Flushing Neuro: reports: Tremors Endocrine: reports: No Symptoms Reported Hematology: reports: No Symptoms Reported Psychiatric: reports: Mood/Affect Appropiate, Orientated x3 Other Systems: Reviewed and Negative Patient History - Patient Medical History Hx Anemia: No Hx Asthma: No Hx Chronic Obstructive Pulmonary Disease (COPD): No Hx Cancer: No Hx Cardiac Disorders: No Hx Congestive Heart Failure: No Hx Hypertension: Yes (not on medication) Hx Hypercholesterolemia: No Hx Pacemaker: No HX Cerebrovascular Accident: No Hx Seizures: No Hx Dementia: No Hx Diabetes: No Hx Gastrointestinal Disorders: Yes (GERD) Hx Liver Disease: No Hx Genitourinary Disorders: No Hx Sexually Transmitted Disorders: No Hx Renal Disease (ESRD): No Hx Thyroid Disease: No Hx Human Immunodeficiency Virus (HIV): No (Negative 2019) Hx Hepatitis C: No Hx Depression: Yes Hx Suicide Attempt: No (Denies suicidal ideation at this time) Hx Bipolar Disorder: No Hx Schizophrenia: No Other Medical History: Allergic Sinusitis, dry eyes, hip arthritis - Patient Surgical History Past Surgical History: No Hx Neurologic Surgery: No Hx Cataract Extraction: No Hx Cardiac Surgery: No Hx Lung Surgery: No Hx Breast Surgery: No Hx Breast Biopsy: No Hx Abdominal Surgery: No Hx Appendectomy: No Hx Cholecystectomy: No Hx Genitourinary Surgery: No Hx Section: No Hx Orthopedic Surgery: No Anesthesia Reaction: No - PPD History Previous Implant?: (takes ChestXray.) Date: 05/02/17 Results: positive ppd - Reproductive History Patient : No - Smoking Cessation Smoking history: Current every day smoker Have you smoked in the past 12 months: Yes Aproximately how many cigarettes per day: 10 Cigars Per Day: 0 Hx Chewing Tobacco Use: No Initiated information on smoking cessation: Yes 'Breaking Loose' booklet given: 06/12/19 - Substances abused Alcohol Substance route: Oral Frequency: Daily Amount used: 4 pints of vodka Age of first use: 17 Date of last use: 06/12/19 Cocaine Substance route: Inhalation Frequency: 1-3 times last 30 days Amount used: 200 hundred dollars Age of first use: 24 Date of last use: 05/12/19 Admission Physical Exam [facility] - Vital Signs Vital Signs: Vital Signs - 24 hr 06/12/19 17:59 Temperature 97.6 F Pulse Rate 109 H Respiratory 18 Rate Blood Pressure 187/91 H - Physical General Appearance: Yes: Moderate Distress, Tremorous, Irritable, Sweating, Anxious HEENTM: Yes: Within Normal Limits Respiratory: Yes: Lungs Clear, Normal Breath Sounds, No Respiratory Distress Neck: Yes: Within Normal Limits Breast: Yes: Breast Exam Deferred Cardiology: Yes: Tachycardia Abdominal: Yes: Normal Bowel Sounds, Protuberent Genitourinary: Yes: Within Normal Limits Back: Yes: Normal Inspection Musculoskeletal: Yes: Back pain Extremities: Yes: Tremors 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: Yes: Within Normal Limits Integumentary: Yes: Warm Lymphatic: Yes: Within Normal Limits - Diagnostic (1) Alcohol dependence with uncomplicated withdrawal Current Visit: Yes Status: Acute (2) Hypertension Current Visit: Yes Status: Acute Qualifiers: Hypertension type: unspecified Qualified Code(s): I10 - Essential (primary ) hypertension (3) Abdominal hernia Current Visit: Yes Status: Chronic Qualifiers: Hernia type: other abdominal hernia Obstruction and gangrene presence: without obstruction or gangrene Qualified Code(s): K45.8 - Other specified abdominal hernia without obstruction or gangrene Comment: Umbilica and ventral hernias (4) Allergic rhinitis Current Visit: Yes Status: Chronic Qualifiers: Allergic rhinitis trigger: unspecified (5) Dry eye Current Visit: Yes Status: Chronic (6) GERD (gastroesophageal reflux disease) Current Visit: Yes Status: Chronic Qualifiers: Esophagitis presence: without esophagitis Qualified Code(s): K21.9 - Gastro -esophageal reflux disease without esophagitis (7) Hip arthritis Current Visit: No Status: Chronic (8) Nicotine dependence Current Visit: Yes Status: Chronic (9) Positive PPD Current Visit: Yes Status: Chronic (10) Sinusitis chronic, ethmoidal Current Visit: Yes Status: Chronic Cleared for Admission [facility] - Detox or Rehab [facility] Level of Care: Medically Managed Detox Regimen/Protocol: Librium Claeared for Rehab Admission: No Breathalyzer - Breathalyzer Breathalyzer: 0.148 Urine Drug Screen - Test Device Lot number: [id number] Expiration date: 03/30/21 - Control Is test valid?: Yes - Results Drug screen NEGATIVE: Yes Inpatient Rehab Admission - Rehab Decision to Admit Inpatient rehab admission?: No
[2019-06-12] MEDS ORDERED: hydrOXYzine PAMOATE 25 MG CAPSULE (FP) PO PRN (19:38)
[2019-06-12] MEDS ORDERED: ACETAMINOPHEN 325 MG TABLET (FP) PO PRN (19:38)
[2019-06-12] MEDS ORDERED: NICOTINE POLACRILEX 2 MG GUM BUC PRN (19:38)
[2019-06-12] MEDS ORDERED: METHOCARBAMOL 500 MG TABLET PO PRN (19:38)
[2019-06-12] MEDS ORDERED: IBUPROFEN 400 MG TABLET (FP) PO PRN (19:38)
[2019-06-12] MEDS ORDERED: chlordiazePOXIDE HCL 25 MG CAPSULE PO PRN (19:38)
[2019-06-12] MEDS ORDERED: MAGNESIUM CITRATE 300 ML BOTTLE PO PRN (19:38)
[2019-06-12] MEDS ORDERED: BISMUTH SUBSALICYLATE 524 MG/30 ML UD PO PRN (19:38)
[2019-06-12] MEDS ORDERED: MAGNESIUM HYDROX 2400MG/30ML ORAL SUSPENSION 30 ML CUP PO PRN (19:38)
[2019-06-12] MEDS ORDERED: MELATONIN 5 MG TABLETS PO PRN (22:00)
[2019-06-12] MEDS: THIAMINE HCL 100 MG TABLET (FP) PO SCH (23:29)
[2019-06-12] MEDS: chlordiazePOXIDE HCL 25 MG CAPSULE PO SCH (23:29)
[2019-06-13] MEDS: chlordiazePOXIDE HCL 25 MG CAPSULE PO SCH ×4 (05:38→23:37)
[2019-06-13 09:44] LABS: HEMATOCRIT 42.6 % (35.4-49); HEMOGLOBIN 14.3 GM/dL (11.7-16.9); MCH 31.6 pg (25.7-33.7); MCHC 33.5 g/dl (32.0-35.9); MEAN CELL VOLUME 94.2 fl (80-96); MEAN PLT VOLUME 8.6 fl (7.5-11.1); PLATELET COUNT 228 K/MM3 (134-434); RBC 4.52 M/mm3 (4.00-5.60); RDW 14.6 % (11.9-15.9); WHITE BLOOD COUNT 9.4 K/mm3 (4.0-10.0)
[2019-06-13 10:17] LABS: ALBUMIN 3.9 g/dl (3.4-5.0); BLOOD UREA NITROGEN 27.4 mg/dL (7-18); CALCIUM 9.1 mg/dL (8.5-10.1); CREATININE 1.3 mg/dL (0.55-1.3); POTASSIUM 4.5 mmol/L (3.5-5.1); TOT PROT 7.5 g/dl (6.4-8.2)
[2019-06-13] MEDS: PRENATAL VITAMINS W/ FOLIC ACID TABLET (FP) PO SCH (11:49)
[2019-06-13] MEDS: MAG HYDROX/AL HYDROX/SIMETH 30 ML UNIT-DOSE CUP PO PRN (11:50)
[2019-06-13] MEDS: NICOTINE 14 MG/24 HOURS TOPICAL PATCH TD SCH (11:52)
--- NOTE | 2019-06-13 14:31 | PN ---
S CIWA - CIWA Score Nausea/Vomitin Muscle Tremors: 2 Anxiety: 2 Agitation: 2 Paroxysmal Sweats: 1-Minimal Palms Moist Orientation: 0-Oriented Tacttile Disturbances: 1-Very Mild Itch/Numbness Auditory Disturbances: 0-None Visual Disturbances: 0-None Headache: 1-Very Mild CIWA-Ar Total Score: 11 S Progress Note (SOAP) Subjective: alert,irritable,anxious,interrupted sleep, Objective: 06/13/19 14:30 Vital Signs Temperature 98.2 F 06/13/19 08:57 Pulse Rate 95 H 06/13/19 08:57 Respiratory Rate 18 06/13/19 08:57 Blood Pressure 125/73 06/13/19 08:57 O2 Sat by Pulse Oximetry (%) Laboratory Last Values WBC 9.4 K/mm3 (4.0-10.0) 06/13/19 07:30 RBC 4.52 M/mm3 (4.00-5.60) 06/13/19 07:30 Hgb 14.3 GM/dL (11.7-16.9) 06/13/19 07:30 Hct 42.6 % (35.4-49) 06/13/19 07:30 MCV 94.2 fl (80-96) 06/13/19 07:30 MCH 31.6 pg (25.7-33.7) 06/13/19 07:30 MCHC 33.5 g/dl (32.0-35.9) 06/13/19 07:30 RDW 14.6 % (11.9-15.9) 06/13/19 07:30 Plt Count 228 K/MM3 (134-434) 06/13/19 07:30 MPV 8.6 fl (7.5-11.1) 06/13/19 07:30 Sodium 136 mmol/L (136-145) 06/13/19 07:30 Potassium 4.5 mmol/L (3.5-5.1) 06/13/19 07:30 Chloride 106 mmol/L (98-107) 06/13/19 07:30 Carbon Dioxide 21 mmol/L (21-32) 06/13/19 07:30 Anion Gap 9 MMOL/L (8-16) 06/13/19 07:30 BUN 27.4 mg/dL (7-18) H 06/13/19 07:30 Creatinine 1.3 mg/dL (0.55-1.3) 06/13/19 07:30 Est GFR (CKD-EPI)AfAm 67.30 06/13/19 07:30 Est GFR (CKD-EPI)NonAf 58.07 06/13/19 07:30 Random Glucose 91 mg/dL (74-106) 06/13/19 07:30 Calcium 9.1 mg/dL (8.5-10.1) 06/13/19 07:30 Total Bilirubin 1.0 mg/dL (0.2-1) 06/13/19 07:30 AST 56 U/L (15-37) H 06/13/19 07:30 ALT 59 U/L (13-61) 06/13/19 07:30 Alkaline Phosphatase 74 U/L (45-117) 06/13/19 07:30 Total Protein 7.5 g/dl (6.4-8.2) 06/13/19 07:30 Albumin 3.9 g/dl (3.4-5.0) 06/13/19 07:30 06/13/19 14:30 rpr pending Assessment: 06/13/19 14:31 withdrawal symptom Plan: continue detox librium regimen,dehydration,encourage oral fluid
[2019-06-13] MEDS: ACETAMINOPHEN 325 MG TABLET (FP) PO PRN (15:15)
--- NOTE | 2019-06-13 15:16 | EKG ---
Test Reason : Blood Pressure : / mmHG Vent. Rate : 100 BPM Atrial Rate : 100 BPM P-R Int : 168 ms QRS Dur : 088 ms QT Int : 354 ms P-R-T Axes : 059 -19 047 degrees QTc Int : 456 ms SINUS RHYTHM WITH OCCASIONAL PREMATURE VENTRICULAR COMPLEXES OTHERWISE NORMAL ECG WHEN COMPARED WITH ECG OF 03-OCT-2018 01:14, PREMATURE VENTRICULAR COMPLEXES ARE NOW PRESENT Confirmed by DOMITILA LUZ, AKASH ([id number]) on 06/13/2019 3:16:47 PM Referred By: WESLEY Confirmed By:AKASH RAMESH MD
[2019-06-13] MEDS: NAPROXEN 500 MG TABLET PO PRN (17:34)
[2019-06-13] MEDS: ARTIFICIAL TEARS (POLYVINYL ALCOHOL) OPTH DROPS OU SCH ×2 (17:37→23:36)
[2019-06-13] MEDS: THIAMINE HCL 100 MG TABLET (FP) PO SCH (23:37)
[2019-06-13] MEDS: FLUTICASONE PROP 0.05% 16 GM NASAL SPRAY NS SCH (23:37)
[2019-06-13] MEDS: FAMOTIDINE 20 MG TABLET PO SCH (23:37)
[2019-06-14] MEDS: chlordiazePOXIDE HCL 25 MG CAPSULE PO SCH ×4 (05:49→22:13)
--- NOTE | 2019-06-14 09:58 | PN ---
S CIWA - CIWA Score Nausea/Vomitin-Mild Nausea/No Vomiting Muscle Tremors: 2 Anxiety: 2 Agitation: 3 Paroxysmal Sweats: 3 Orientation: 0-Oriented Tacttile Disturbances: 0-None Auditory Disturbances: 0-None Visual Disturbances: 0-None Headache: 1-Very Mild CIWA-Ar Total Score: 12 S Progress Note (SOAP) Subjective: Pt has demands for multiple prn meds: hemorrhoidal cream, hydrocortisone cream prn for itching of skin, pepcid at 6am, abdominal binder for umbilical hernia- done and knee braces... O: Vital Signs - 24 hr 06/13/19 06/13/19 06/14/19 13:53 21:07 03:44 Temperature 97.7 F 97.5 F L Pulse Rate 102 H 85 Respiratory 18 18 18 Rate Blood Pressure 144/77 150/81 06/14/19 06/14/19 07:18 08:50 Temperature 97.7 F 97.9 F Pulse Rate 73 88 Respiratory 18 19 Rate Blood Pressure 142/87 151/75 Laboratory Tests 06/13/19 06/13/19 06/13/19 07:30 07:30 07:30 WBC 9.4 RBC 4.52 Hgb 14.3 Hct 42.6 MCV 94.2 MCH 31.6 MCHC 33.5 RDW 14.6 Plt Count 228 MPV 8.6 Sodium 136 Potassium 4.5 Chloride 106 Carbon Dioxide 21 Anion Gap 9 BUN 27.4 H Creatinine 1.3 Est GFR (CKD-EPI)AfAm 67.30 Est GFR (CKD-EPI)NonAf 58.07 Random Glucose 91 Calcium 9.1 Total Bilirubin 1.0 AST 56 H ALT 59 Alkaline Phosphatase 74 Total Protein 7.5 Albumin 3.9 RPR Titer Nonreactive umbilical hernia noted no obvious a/p: AUD- continue detox see no indication for cough lozenges request for prn hemorrhoidal cream and hydrocortisone cream for body itching done artificial tears done abdominal brace for umbilical hernia
[2019-06-14] MEDS ORDERED: ARTIFICIAL TEARS (POLYVINYL ALCOHOL) OPTH DROPS OU SCH (10:00)
[2019-06-14] MEDS: NAPROXEN 500 MG TABLET PO PRN (10:28)
[2019-06-14] MEDS: PRENATAL VITAMINS W/ FOLIC ACID TABLET (FP) PO SCH (10:28)
[2019-06-14] MEDS: FLUTICASONE PROP 0.05% 16 GM NASAL SPRAY NS SCH ×2 (10:29→22:14)
[2019-06-14] MEDS: NICOTINE 14 MG/24 HOURS TOPICAL PATCH TD SCH (10:30)
[2019-06-14] MEDS: FAMOTIDINE 20 MG TABLET PO SCH ×2 (10:32→22:13)
[2019-06-14] MEDS: HYDROCORTISONE 0.5% TOPICAL CREAM 30 GM TUBE TP PRN ×2 (10:33→22:13)
[2019-06-14] MEDS: ARTIFICIAL TEARS (POLYVINYL ALCOHOL) OPTH DROPS OU SCH ×4 (11:00→22:14)
[2019-06-14] MEDS: THIAMINE HCL 100 MG TABLET (FP) PO SCH (22:14)
[2019-06-14] MEDS: HYDROCORTISONE 2.5% TOPICAL CREAM 30 GM TUBE PR SCH (22:29)
[2019-06-15] MEDS ORDERED: chlordiazePOXIDE HCL 10 MG CAPSULE PO PRN
[2019-06-15] MEDS ORDERED: PATIENT'S OWN MEDICATION (NON-FORMULARY) (Lansoprazole [Prevacid] 30 MG) PO SCH (06:00)
[2019-06-15] MEDS: MENTHOL/PHENOL 1 EACH UD MM PRN (06:06)
[2019-06-15] MEDS: chlordiazePOXIDE HCL 10 MG CAPSULE PO SCH ×3 (06:06→17:30)
[2019-06-15] MEDS: FLUTICASONE PROP 0.05% 16 GM NASAL SPRAY NS SCH (10:47)
[2019-06-15] MEDS: PRENATAL VITAMINS W/ FOLIC ACID TABLET (FP) PO SCH (10:47)
[2019-06-15] MEDS: FAMOTIDINE 20 MG TABLET PO SCH ×2 (10:47→17:30)
[2019-06-15] MEDS: NICOTINE 14 MG/24 HOURS TOPICAL PATCH TD SCH (10:47)
[2019-06-15] MEDS: ARTIFICIAL TEARS (POLYVINYL ALCOHOL) OPTH DROPS OU SCH ×3 (10:48→17:31)
[2019-06-15] MEDS: HYDROCORTISONE 0.5% TOPICAL CREAM 30 GM TUBE TP PRN (10:49)
[2019-06-15] MEDS: NAPROXEN 500 MG TABLET PO PRN (10:52)
--- NOTE | 2019-06-15 11:13 | PN ---
[facility] CIWA - CIWA Score Nausea/Vomitin-No Nausea/No Vomiting Muscle Tremors: 1-None Visible, but [place] Anxiety: 2 Agitation: 2 Paroxysmal Sweats: No Perspiration Orientation: 0-Oriented Tacttile Disturbances: 0-None Auditory Disturbances: 0-None Visual Disturbances: 0-None Headache: 1-Very Mild CIWA-Ar Total Score: 6 BHS Progress Note (SOAP) Subjective: Wants pepcid at 6pm and 6 am O: Vital Signs - 24 hr 06/14/19 06/14/19 06/14/19 13:20 16:49 20:39 Temperature 97.9 F 97.9 F 97.7 F Pulse Rate 95 H 92 H 78 Respiratory 20 17 17 Rate Blood Pressure 141/73 129/78 158/90 06/15/19 06/15/19 06/15/19 00:40 05:00 09:41 Temperature 98.4 F 97.5 F L Pulse Rate 89 75 Respiratory 18 18 18 Rate Blood Pressure 134/93 146/78 Laboratory Tests 06/13/19 06/13/19 06/13/19 07:30 07:30 07:30 WBC 9.4 RBC 4.52 Hgb 14.3 Hct 42.6 MCV 94.2 MCH 31.6 MCHC 33.5 RDW 14.6 Plt Count 228 MPV 8.6 Sodium 136 Potassium 4.5 Chloride 106 Carbon Dioxide 21 Anion Gap 9 BUN 27.4 H Creatinine 1.3 Est GFR (CKD-EPI)AfAm 67.30 Est GFR (CKD-EPI)NonAf 58.07 Random Glucose 91 Calcium 9.1 Total Bilirubin 1.0 AST 56 H ALT 59 Alkaline Phosphatase 74 Total Protein 7.5 Albumin 3.9 RPR Titer Nonreactive a/p: AUD- continue detox GERD- changed pepcid schedule
[2019-06-15] MEDS: MAG HYDROX/AL HYDROX/SIMETH 30 ML UNIT-DOSE CUP PO PRN (14:38)
[2019-06-16] MEDS: THIAMINE HCL 100 MG TABLET (FP) PO SCH ×2 (00:01→23:04)
[2019-06-16] MEDS: chlordiazePOXIDE HCL 10 MG CAPSULE PO SCH ×3 (00:01→17:41)
[2019-06-16] MEDS ORDERED: FAMOTIDINE 20 MG TABLET PO SCH (06:00)
[2019-06-16] MEDS: FAMOTIDINE 20 MG TABLET PO SCH ×2 (06:23→17:41)
[2019-06-16] MEDS: NAPROXEN 500 MG TABLET PO PRN (06:24)
[2019-06-16] MEDS: MENTHOL/PHENOL 1 EACH UD MM PRN ×2 (07:36→15:34)
[2019-06-16] MEDS: NICOTINE 14 MG/24 HOURS TOPICAL PATCH TD SCH (10:25)
[2019-06-16] MEDS: FLUTICASONE PROP 0.05% 16 GM NASAL SPRAY NS SCH ×3 (10:25→23:04)
[2019-06-16] MEDS: PRENATAL VITAMINS W/ FOLIC ACID TABLET (FP) PO SCH (10:25)
[2019-06-16] MEDS: ARTIFICIAL TEARS (POLYVINYL ALCOHOL) OPTH DROPS OU SCH ×5 (10:25→23:04)
[2019-06-16] MEDS: HYDROCORTISONE 0.5% TOPICAL CREAM 30 GM TUBE TP PRN (10:28)
[2019-06-16] MEDS: guaiFENesin 200 MG/10 ML 10 ML UNIT-DOSE CUPS PO PRN ×2 (10:46→16:30)
--- NOTE | 2019-06-16 11:54 | PN ---
[facility] CIWA - CIWA Score Nausea/Vomitin-No Nausea/No Vomiting Muscle Tremors: None Anxiety: 4-Mod. Anxious/Guarded Agitation: 5 Paroxysmal Sweats: No Perspiration Orientation: 0-Oriented Tacttile Disturbances: 0-None Auditory Disturbances: 0-None Visual Disturbances: 2-Mild Sensitivity Headache: 0-None Present CIWA-Ar Total Score: 11 [facility]HS Progress Note (SOAP) Subjective: Patient admitted for etoh withdrawal sx. Patient anxious, irritable, wears sunglasses due light sensitivity. Complain of nasal congestion and dry cough. Objective: 06/16/19 11:51 Vital Signs Temperature 97.7 F 06/16/19 11:34 Pulse Rate 91 H 06/16/19 11:34 Respiratory Rate 18 06/16/19 11:34 Blood Pressure 150/78 06/16/19 11:34 O2 Sat by Pulse Oximetry (%) Laboratory Tests 06/13/19 06/13/19 06/13/19 07:30 07:30 07:30 WBC 9.4 RBC 4.52 Hgb 14.3 Hct 42.6 MCV 94.2 MCH 31.6 MCHC 33.5 RDW 14.6 Plt Count 228 MPV 8.6 Sodium 136 Potassium 4.5 Chloride 106 Carbon Dioxide 21 Anion Gap 9 BUN 27.4 H Creatinine 1.3 Est GFR (CKD-EPI)AfAm 67.30 Est GFR (CKD-EPI)NonAf 58.07 Random Glucose 91 Calcium 9.1 Total Bilirubin 1.0 AST 56 H ALT 59 Alkaline Phosphatase 74 Total Protein 7.5 Albumin 3.9 RPR Titer Nonreactive PE alert and oriented x 3 skin warm and dry in nad ext full rom, no tremors anxious, irritable Assessment: 06/16/19 11:53 etoh withdrawal symptoms Plan: continue detox as ordered robitussin prn monitor clinically
[2019-06-16] MEDS: ACETAMINOPHEN 325 MG TABLET (FP) PO PRN (13:31)
[2019-06-16] MEDS: HYDROCORTISONE 2.5% TOPICAL CREAM 30 GM TUBE PR SCH ×2 (23:04)
[2019-06-17] MEDS ORDERED: chlordiazePOXIDE HCL 10 MG CAPSULE PO ONE (05:00)
[2019-06-17] MEDS: guaiFENesin 200 MG/10 ML 10 ML UNIT-DOSE CUPS PO PRN (06:25)
[2019-06-17] MEDS: NAPROXEN 500 MG TABLET PO PRN (06:25)
[2019-06-17] MEDS: FAMOTIDINE 20 MG TABLET PO SCH (06:26)
[2019-06-17] MEDS: MENTHOL/PHENOL 1 EACH UD MM PRN (06:26)
[2019-06-17 06:43] VITALS: TEMP 97.3
[2019-06-17] MEDS: ARTIFICIAL TEARS (POLYVINYL ALCOHOL) OPTH DROPS OU SCH (10:50)
[2019-06-17] MEDS: FLUTICASONE PROP 0.05% 16 GM NASAL SPRAY NS SCH (10:50)
[2019-06-17] MEDS: PRENATAL VITAMINS W/ FOLIC ACID TABLET (FP) PO SCH (10:50)
[2019-06-17] MEDS: NICOTINE 14 MG/24 HOURS TOPICAL PATCH TD SCH (10:51)
[2019-06-17 10:57] VITALS: BP 120/71; PULSE 91
--- NOTE | 2019-06-17 11:02 | PN ---
S CIWA - CIWA Score Nausea/Vomitin-No Nausea/No Vomiting Muscle Tremors: 1-None Visible, but [place] Anxiety: 1-Mildly Anxious Agitation: 0-Normal Activity Paroxysmal Sweats: No Perspiration Orientation: 0-Oriented Tacttile Disturbances: 0-None Auditory Disturbances: 0-None Visual Disturbances: 4-Moderate Hallucinations Headache: 0-None Present CIWA-Ar Total Score: 6 [facility] Progress Note (SOAP) Subjective: alert,no complaint Objective: 06/17/19 11:00 Vital Signs Temperature 97.3 F L 06/17/19 08:45 Pulse Rate 91 H 06/17/19 08:45 Respiratory Rate 16 06/17/19 08:45 Blood Pressure 120/71 06/17/19 08:45 O2 Sat by Pulse Oximetry (%) Assessment: 06/17/19 11:00 detox completed,no withdrawal symptom Plan: discharge today,patient refused to go to [facility],would like to go home
--- NOTE | 2019-06-17 11:07 | DS ---
[facility] Detox Discharge Summary Admission Date: 06/12/19 Discharge Date: 06/17/19 - History Present History: Alcohol Dependence Additional Comments: alert,oriented x 3 ambulation on the unit lung clear no abdominal pain stable for discharge patient declined to go to [facility] discharge time 35 mins Pertinent Past History: hypertension abdominal hernia arthritis - Physical Exam Results Vital Signs: Vital Signs Temperature 97.3 F L 06/17/19 08:45 Pulse Rate 91 H 06/17/19 08:45 Respiratory Rate 16 06/17/19 08:45 Blood Pressure 120/71 06/17/19 08:45 O2 Sat by Pulse Oximetry (%) Pertinent Admission Physical Exam Findings: withdrawal signs and symptom Vital Signs Temperature 97.3 F L 06/17/19 08:45 Pulse Rate 91 H 06/17/19 08:45 Respiratory Rate 16 06/17/19 08:45 Blood Pressure 120/71 06/17/19 08:45 O2 Sat by Pulse Oximetry (%) Laboratory Last Values WBC 9.4 K/mm3 (4.0-10.0) 06/13/19 07:30 RBC 4.52 M/mm3 (4.00-5.60) 06/13/19 07:30 Hgb 14.3 GM/dL (11.7-16.9) 06/13/19 07:30 Hct 42.6 % (35.4-49) 06/13/19 07:30 MCV 94.2 fl (80-96) 06/13/19 07:30 MCH 31.6 pg (25.7-33.7) 06/13/19 07:30 MCHC 33.5 g/dl (32.0-35.9) 06/13/19 07:30 RDW 14.6 % (11.9-15.9) 06/13/19 07:30 Plt Count 228 K/MM3 (134-434) 06/13/19 07:30 MPV 8.6 fl (7.5-11.1) 06/13/19 07:30 Sodium 136 mmol/L (136-145) 06/13/19 07:30 Potassium 4.5 mmol/L (3.5-5.1) 06/13/19 07:30 Chloride 106 mmol/L (98-107) 06/13/19 07:30 Carbon Dioxide 21 mmol/L (21-32) 06/13/19 07:30 Anion Gap 9 MMOL/L (8-16) 06/13/19 07:30 BUN 27.4 mg/dL (7-18) H 06/13/19 07:30 Creatinine 1.3 mg/dL (0.55-1.3) 06/13/19 07:30 Est GFR (CKD-EPI)AfAm 67.30 06/13/19 07:30 Est GFR (CKD-EPI)NonAf 58.07 06/13/19 07:30 Random Glucose 91 mg/dL (74-106) 06/13/19 07:30 Calcium 9.1 mg/dL (8.5-10.1) 06/13/19 07:30 Total Bilirubin 1.0 mg/dL (0.2-1) 06/13/19 07:30 AST 56 U/L (15-37) H 06/13/19 07:30 ALT 59 U/L (13-61) 06/13/19 07:30 Alkaline Phosphatase 74 U/L (45-117) 06/13/19 07:30 Total Protein 7.5 g/dl (6.4-8.2) 06/13/19 07:30 Albumin 3.9 g/dl (3.4-5.0) 06/13/19 07:30 RPR Titer Nonreactive (NONREACTIVE) 06/13/19 07:30 - Treatment Hospital Course: Detox Protocol Followed, Detoxed Safely, Responded well, Discharged Condition Good, Rehab Referral Accepted Patient has Accepted a Rehab Referral to: [facility] - Medication Discharge Medications: Ambulatory Orders Fluticasone Propionate [Flonase Allergy Relief] 2 spray IN BID 05/04/19 Naproxen [Naprosyn] 500 mg PO BID PRN 05/04/19 Lansoprazole [Prevacid] 30 mg PO DAILY 06/12/19 Polyvinyl Alcohol [Artificial Tears] 2 ml OP BID 06/12/19 - Diagnosis (1) Alcohol dependence with uncomplicated withdrawal Current Visit: Yes Status: Acute (2) Hypertension Current Visit: Yes Status: Acute Qualifiers: Hypertension type: unspecified Qualified Code(s): I10 - Essential (primary ) hypertension (3) Abdominal hernia Current Visit: Yes Status: Chronic Qualifiers: Hernia type: other abdominal hernia Obstruction and gangrene presence: without obstruction or gangrene Qualified Code(s): K45.8 - Other specified abdominal hernia without obstruction or gangrene (4) Dry eye Current Visit: Yes Status: Chronic (5) GERD (gastroesophageal reflux disease) Current Visit: Yes Status: Chronic Qualifiers: Esophagitis presence: without esophagitis Qualified Code(s): K21.9 - Gastro -esophageal reflux disease without esophagitis (6) Nicotine dependence Current Visit: Yes Status: Chronic (7) Positive PPD Current Visit: Yes Status: Chronic - AMA Did Patient Leave Against Medical Advice: No
== END 2019-06-17 11:29 | disposition home or self-care (01) | DRG 774 ==
LOC: YASAS 15:09 → Y6N 18:18
PROVIDERS: ADMIT Allergy & Immunology; ATTEND Allergy & Immunology
PROC: HZ2ZZZZ Detoxification Services for Substance Abuse Treatment (ICD-10-PCS; principal; 2019-06-12)
DX: F10.230 Alcohol dependence with withdrawal, uncomplicated (principal); F14.10 Cocaine abuse, uncomplicated; F17.210 Nicotine dependence, cigarettes, uncomplicated; H04.129 Dry eye syndrome of unspecified lacrimal gland; I10 Essential (primary) hypertension; K21.9 Gastro-esophageal reflux disease without esophagitis; M13.859 Other specified arthritis, unspecified hip; K45.8 Other specified abdominal hernia without obstruction or gangrene; J32.2 Chronic ethmoidal sinusitis; J30.9 Allergic rhinitis, unspecified; R05 Cough; R76.11 Nonspecific reaction to tuberculin skin test without active tuberculosis; Z88.0 Allergy status to penicillin; Z91.018 Allergy to other foods; Z88.7 Allergy status to serum and vaccine
CPT/HCPCS: 36415; 80053; 85027; 86593; 93005; 93010

== ENCOUNTER 2019-11-12 09:33 | Inpatient (IN) | payer OTHER ==
--- NOTE | 2019-11-12 10:05 | BHS.RME ---
Substance Use & Tx History - Substance Use History Alcohol Substance amount: 2 pints vodka and beers Frequency of use: Daily Substance route: Oral Date of Last Use: 11/12/19 (1 hour) Cocaine- Powder Substance amount: $200 Frequency of use: Once a month Substance route: Inhalation (ex: sniffing or snorting) Date of Last Use: 11/10/19 Marijuana/Hashish Substance amount: $10 Frequency of use: Once a month Substance route: Oral Date of Last Use: 11/11/19 Nicotine Substance amount: 3 CIGS Frequency of use: Daily Substance route: Smoking Date of Last Use: 11/12/19 Physical/Psych/Mental Status - Behavior General Behavior: Decreased activity Eye Contact: Normal - Cooperativeness Cooperativeness: Cooperative - Thinking Thought Processes: Tight, Logical, Goal Directed Thought content: Future oriented - Physical Health Problems Is patient presently having any pain?: No Does patient presently have any injuries (include location): No Does patient currently have a fever: No Is patient : No CIWA Nausea/Vomitin-Mild Nausea/No Vomiting Muscle Tremors: 2 Anxiety: 2 Agitation: 2 Paroxysmal Sweats: 1-Minimal Palms Moist Orientation: 0-Oriented (THIS MORNING USED) Tacttile Disturbances: 0-None Auditory Disturbances: 0-None Visual Disturbances: 0-None Headache: 0-None Present CIWA-Ar Total Score: 8
--- NOTE | 2019-11-12 10:49 | HP ---
CIWA Score Nausea/Vomitin-Mild Nausea/No Vomiting Muscle Tremors: 2 Anxiety: 2 Agitation: 2 Paroxysmal Sweats: 1-Minimal Palms Moist Orientation: 0-Oriented (THIS MORNING USED) Tacttile Disturbances: 0-None Auditory Disturbances: 0-None Visual Disturbances: 0-None Headache: 0-None Present CIWA-Ar Total Score: 8 - Admission Criteria OASAS Guidelines: Admission for Medically Managed Detox: Requires at least one of the followin. CIWA greater than 12 2. Seizures within the past 24 hours 3. Delirium tremens within the past 24 hours 4. Hallucinations within the past 24 hours 5. Acute intervention needed for co occurring medical disorder 6. Acute intervention needed for co occurring psychiatric disorder 7. Severe withdrawal that cannot be handled at a lower level of care (continued vomiting, continued diarrhea, abnormal vital signs) requiring intravenous medication and/or fluids 8. Admitting History and Physical - Admission Chief Complaint: Mr. Salvador is a 64 yo man who presents to [facility] because "I really want to go into rehab". History of Present Illness: Mr. Salvador is a 64 yo man who presents to [facility] because "I really want to go into rehab". He was last here in August of this year, completed detox. After discharge he went home to [place] and began drinking immediately. He was in the hospital, [place], last night due to nausea. He was treated with Zofran and Prevacid. Labs were drawn, results are not available for my review. He was referred to a surgeon for his umbilical hernia. 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 Cocaine- Powder Substance amount: $200 Frequency of use: Once a month Substance route: Inhalation (ex: sniffing or snorting) Date of Last Use: 11/10/19 First use age 23 y Marijuana/Hashish Substance amount: $10 Frequency of use: Once a month Substance route: Oral Date of Last Use: 11/11/19 First use age 20 y Nicotine Substance amount: 3 CIGS Frequency of use: Daily Substance route: Smoking Date of Last Use: 11/12/19 First use age 19 y History Source: Patient Limitations to Obtaining History: No Limitations - Smoking History Smoking history: Current every day smoker Have you smoked in the past 12 months: Yes Aproximately how many cigarettes per day: 5 - Alcohol/Substance Use Hx Alcohol Use: Yes Admission ROS [facility] - HPI Allergies/Adverse Reactions: Allergies Allergy/AdvReac Type Severity Reaction Status Date / Time Penicillins Allergy Severe Difficulty Verified 11/12/19 10:54 Breathing tomato [Tomato] Allergy Mild Itching Verified 11/12/19 10:54 tuberculin, purified protein Allergy Rash Verified 11/12/19 10:54 deriva [Tuberculin,Purif.Prot.Deriv.] Exam Limitations: No Limitations - Ebola screening Have you traveled outside of the country in the last 21 days: No Have you been sick,other than usual withdrawal symptoms: No Do you have a fever: No - Review of Systems Constitutional: No Symptoms Reported EENT: reports: Other (light sensitive, wears dark glasses) Respiratory: reports: No Symptoms reported Cardiac: reports: No Symptoms Reported GI: reports: Nausea : reports: No Symptoms Reported Musculoskeletal: reports: Joint Pain (shoulders bother him if exercising, takes Naproxen) Integumentary: reports: No Symptoms Reported Neuro: reports: No Symptoms reported Endocrine: reports: No Symptoms Reported Hematology: reports: No Symptoms Reported Psychiatric: reports: Anxious Patient History - Patient Medical History Hx Anemia: No Hx Asthma: No Hx Chronic Obstructive Pulmonary Disease (COPD): No Hx Cancer: No Hx Cardiac Disorders: No Hx Congestive Heart Failure: No Hx Hypertension: No Hx Hypercholesterolemia: No Hx Pacemaker: No HX Cerebrovascular Accident: No Hx Seizures: No Hx Dementia: No Hx Diabetes: No Hx Gastrointestinal Disorders: Yes (GERD) Hx Liver Disease: No Hx Genitourinary Disorders: No Hx Sexually Transmitted Disorders: No Hx Renal Disease (ESRD): No Hx Thyroid Disease: No Hx Human Immunodeficiency Virus (HIV): No Hx Hepatitis C: No Hx Depression: Yes Hx Suicide Attempt: No (Denies suicidal ideation at this time) Hx Bipolar Disorder: No Hx Schizophrenia: No - Patient Surgical History Past Surgical History: No Hx Neurologic Surgery: No Hx Cataract Extraction: No Hx Cardiac Surgery: No Hx Lung Surgery: No Hx Breast Surgery: No Hx Breast Biopsy: No Hx Abdominal Surgery: No Hx Appendectomy: No Hx Cholecystectomy: No Hx Genitourinary Surgery: No Hx Section: No Hx Orthopedic Surgery: No Anesthesia Reaction: No - PPD History Date: 07/22/19 Results: NEG CXR - Smoking Cessation Smoking history: Current every day smoker Have you smoked in the past 12 months: Yes Aproximately how many cigarettes per day: 5 Cigars Per Day: 0 Hx Chewing Tobacco Use: No Initiated information on smoking cessation: Yes 'Breaking Loose' booklet given: 11/12/19 Admission Physical Exam [facility] - Physical General Appearance: Yes: No Apparent Distress, Nourished, Appropriately Dressed HEENTM: Yes: EOMI, Hearing grossly Normal, Normocephalic, Normal Voice, Other (light sensitive, conjunctival injection) Respiratory: Yes: Lungs Clear, Normal Breath Sounds Neck: Yes: Within Normal Limits, Supple Breast: Yes: Breast Exam Deferred Cardiology: Yes: Regular Rhythm, Regular Rate, S1, S2 Abdominal: Yes: Normal Bowel Sounds, Soft, Protuberent, Hernia Back: Yes: Normal Inspection Musculoskeletal: Yes: Gait Steady Extremities: Yes: Normal Inspection, Non-Tender 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: Yes: Within Normal Limits Integumentary: Yes: Normal Color, Dry, Warm - Diagnostic (1) Alcohol dependence with uncomplicated withdrawal Current Visit: Yes Status: Acute (2) Nicotine dependence Current Visit: Yes Status: Acute (3) Cannabis dependence Current Visit: Yes Status: Acute (4) Cocaine dependence Current Visit: Yes Status: Acute Qualifiers: Substance use status: uncomplicated Qualified Code(s): F14.20 - Cocaine dependence, uncomplicated (5) Abdominal hernia Current Visit: No Status: Chronic Qualifiers: Hernia type: other abdominal hernia Obstruction and gangrene presence: without obstruction or gangrene Qualified Code(s): K45.8 - Other specified abdominal hernia without obstruction or gangrene Comment: Umbilica and ventral hernias (6) History of positive PPD Current Visit: No Status: Chronic Comment: ALLERGY Cleared for Admission [facility] - Detox or Rehab [facility] Level of Care: Medically Managed Detox Regimen/Protocol: Librium Breathalyzer - Breathalyzer Breathalyzer: 0.103 Urine Drug Screen - Test Device Lot number: [id number] Expiration date: 12/28/20 - Control Is test valid?: Yes - Results Drug screen NEGATIVE: Yes Inpatient Rehab Admission - Rehab Decision to Admit Inpatient rehab admission?: No
[2019-11-12] MEDS ORDERED: chlordiazePOXIDE HCL 25 MG CAPSULE PO PRN (10:54)
[2019-11-12] MEDS ORDERED: MAGNESIUM CITRATE 300 ML BOTTLE PO PRN (10:54)
[2019-11-12] MEDS ORDERED: ACETAMINOPHEN 325 MG TABLET (FP) PO PRN (10:54)
[2019-11-12] MEDS ORDERED: IBUPROFEN 400 MG TABLET (FP) PO PRN (10:54)
[2019-11-12] MEDS ORDERED: MAGNESIUM HYDROX 2400MG/30ML ORAL SUSPENSION 30 ML CUP PO PRN (10:54)
[2019-11-12] MEDS ORDERED: ONDANSETRON *ODT* 4 MG TABLET SL PRN (10:54)
[2019-11-12] MEDS ORDERED: BISMUTH SUBSALICYLATE 524 MG/30 ML UD PO PRN (10:54)
[2019-11-12] MEDS ORDERED: METHOCARBAMOL 500 MG TABLET PO PRN (10:54)
[2019-11-12 11:27] VITALS: BMI 30.6
[2019-11-12] MEDS: hydrOXYzine PAMOATE 25 MG CAPSULE (FP) PO SCH ×3 (14:38→22:17)
[2019-11-12 14:51] LABS: HEMATOCRIT 40.5 % (35.4-49); HEMOGLOBIN 13.5 GM/dL (11.7-16.9); MCH 29.9 pg (25.7-33.7); MCHC 33.3 g/dl (32.0-35.9); MEAN PLT VOLUME 8.6 fl (7.5-11.1); PLATELET COUNT 231 K/MM3 (134-434); WHITE BLOOD COUNT 8.4 K/mm3 (4.0-10.0)
[2019-11-12 15:11] LABS: POTASSIUM 4.2 mmol/L (3.5-5.1)
[2019-11-12 15:19] LABS: ALBUMIN 4.2 g/dl (3.4-5.0); BLOOD UREA NITROGEN 16.3 mg/dL (7-18); CREATININE 1.3 mg/dL (0.55-1.3)
[2019-11-12] MEDS: chlordiazePOXIDE HCL 25 MG CAPSULE PO SCH ×2 (17:31→22:17)
[2019-11-12] MEDS ORDERED: HYDROCORTISONE 0.5% TOPICAL OINTMENT TUBE TP PRN (19:22)
--- NOTE | 2019-11-12 19:26 | PN ---
[facility]HS Progress Note Note: pt requesting naproxen instead of Motrin , Ora-jel and hydrocortisone ointment for rectal pruritus/ h/o hemorrhoids. Meds ordered . Vital Signs - 24 hr 11/12/19 11/12/19 11/12/19 10:57 10:59 12:10 Temperature 98.7 F 98.3 F Pulse Rate 97 H 100 H Respiratory 18 17 Rate Blood Pressure 123/82 130/66 O2 Sat by Pulse 97 98 Oximetry (%) 11/12/19 16:30 Temperature 97.7 F Pulse Rate 107 H Respiratory 18 Rate Blood Pressure 127/69 O2 Sat by Pulse Oximetry (%)
[2019-11-12] MEDS ORDERED: HYDROCORTISONE 1% TOPICAL OINT 30 GM TUBE TP PRN (20:45)
[2019-11-12] MEDS: THIAMINE HCL 100 MG TABLET (FP) PO SCH (22:17)
[2019-11-12] MEDS: FLUTICASONE PROP 0.05% 16 GM NASAL SPRAY NS SCH (22:20)
[2019-11-12] MEDS: MELATONIN 5 MG TABLETS PO SCH (22:20)
[2019-11-12] MEDS: ARTIFICIAL TEARS (POLYVINYL ALCOHOL) OPTH DROPS OU SCH (22:20)
[2019-11-13] MEDS: chlordiazePOXIDE HCL 25 MG CAPSULE PO SCH ×4 (05:16→22:17)
[2019-11-13] MEDS: hydrOXYzine PAMOATE 25 MG CAPSULE (FP) PO SCH ×5 (05:16→22:17)
[2019-11-13] MEDS: BENZOCAINE 20 % GEL TUBE MM PRN ×2 (05:17→22:19)
[2019-11-13] MEDS ORDERED: FAMOTIDINE 20 MG TABLET PO SCH (10:00)
[2019-11-13] MEDS: FLUTICASONE PROP 0.05% 16 GM NASAL SPRAY NS SCH ×2 (10:32→22:18)
[2019-11-13] MEDS: ARTIFICIAL TEARS (POLYVINYL ALCOHOL) OPTH DROPS OU SCH ×2 (10:33→22:23)
[2019-11-13] MEDS: CARBAMIDE PEROXIDE 6.5% OTIC 15 ML BOTTLE AD SCH ×2 (10:33→22:21)
[2019-11-13] MEDS: PRENATAL VITAMINS W/ FOLIC ACID TABLET (FP) PO SCH (10:38)
[2019-11-13] MEDS: HYDROCORTISONE 0.5% TOPICAL CREAM 30 GM TUBE TP SCH ×2 (11:38→22:20)
--- NOTE | 2019-11-13 12:47 | PN ---
S CIWA - CIWA Score Nausea/Vomitin-Mild Nausea/No Vomiting Muscle Tremors: 2 Anxiety: 2 Agitation: 2 Paroxysmal Sweats: No Perspiration Orientation: 0-Oriented Tacttile Disturbances: 1-Very Mild Itch/Numbness Auditory Disturbances: 0-None Visual Disturbances: 0-None Headache: 1-Very Mild CIWA-Ar Total Score: 9 S Progress Note (SOAP) Subjective: alert,irritable,anxious,interrupted sleep,ache pain,irritable and clogged right ear using debrox,rash facial area Objective: 11/13/19 12:45 Vital Signs Temperature 97.1 F L 11/13/19 08:40 Pulse Rate 76 11/13/19 08:40 Respiratory Rate 17 11/13/19 08:40 Blood Pressure 156/80 11/13/19 08:40 O2 Sat by Pulse Oximetry (%) 98 11/13/19 05:09 11/13/19 12:46 11/12/19 11/12/19 11:10 11:10 WBC 8.4 RBC 4.50 Hgb 13.5 Hct 40.5 MCV 90.0 MCHC 33.3 RDW 15.0 Plt Count 231 D Sodium 138 Potassium 4.2 Chloride 105 Carbon Dioxide 21 Anion Gap 12 BUN 16.3 Creatinine 1.3 11/13/19 12:52 Vital Signs Temperature 97.1 F L 11/13/19 08:40 Pulse Rate 76 11/13/19 08:40 Respiratory Rate 17 11/13/19 08:40 Blood Pressure 156/80 11/13/19 08:40 O2 Sat by Pulse Oximetry (%) 98 11/13/19 05:09 11/13/19 12:53 Laboratory Tests 11/12/19 11/12/19 11/12/19 11:10 11:10 11:10 WBC 8.4 RBC 4.50 Hgb 13.5 Hct 40.5 MCV 90.0 MCH 29.9 MCHC 33.3 RDW 15.0 Plt Count 231 D MPV 8.6 Sodium 138 Potassium 4.2 Chloride 105 Carbon Dioxide 21 Anion Gap 12 BUN 16.3 Creatinine 1.3 Est GFR (CKD-EPI)AfAm 67.30 Est GFR (CKD-EPI)NonAf 58.07 Random Glucose 76 Calcium 9.0 Total Bilirubin 1.0 AST 30 ALT 42 Alkaline Phosphatase 82 Total Protein 8.0 Albumin 4.2 Syphilis Serology Reactive A* RPR Titer 11/12/19 11:10 WBC RBC Hgb Hct MCV MCH MCHC RDW Plt Count MPV Sodium Potassium Chloride Carbon Dioxide Anion Gap BUN Creatinine Est GFR (CKD-EPI)AfAm Est GFR (CKD-EPI)NonAf Random Glucose Calcium Total Bilirubin AST ALT Alkaline Phosphatase Total Protein Albumin Syphilis Serology RPR Titer Reactive 1:1 H 11/13/19 12:54 patient was treated for syphilis in year 2015 Assessment: 11/13/19 12:55 withdrawal symptom Plan: continue detox librium regimen,pepcid 20 mgs po daily for gerd,debrox ear drop right ear,hydrocortisone cream 0.05 % bid facial rash,
[2019-11-13] MEDS: NAPROXEN 500 MG TABLET PO PRN (17:41)
[2019-11-13] MEDS: THIAMINE HCL 100 MG TABLET (FP) PO SCH (22:17)
[2019-11-13] MEDS: MELATONIN 5 MG TABLETS PO SCH (22:18)
[2019-11-13] MEDS: ACETAMINOPHEN 325 MG TABLET (FP) PO PRN (22:24)
[2019-11-14] MEDS: chlordiazePOXIDE HCL 25 MG CAPSULE PO SCH ×4 (05:19→23:20)
[2019-11-14] MEDS: hydrOXYzine PAMOATE 25 MG CAPSULE (FP) PO SCH ×5 (05:21→23:20)
[2019-11-14] MEDS: FAMOTIDINE 20 MG TABLET PO SCH (05:21)
--- NOTE | 2019-11-14 09:52 | PN ---
S CIWA - CIWA Score Nausea/Vomitin-No Nausea/No Vomiting Muscle Tremors: 1-None Visible, but [place] Anxiety: 2 Agitation: 2 Paroxysmal Sweats: No Perspiration Orientation: 0-Oriented Tacttile Disturbances: 1-Very Mild Itch/Numbness Auditory Disturbances: 0-None Visual Disturbances: 0-None Headache: 1-Very Mild CIWA-Ar Total Score: 7 BHS Progress Note (SOAP) Subjective: alert,irritable,anxious,interrupted sleep,tremor,nausea,history of hemorrhoid Objective: 11/14/19 09:48 Vital Signs Temperature 97.3 F L 11/14/19 05:16 Pulse Rate 64 11/14/19 05:16 Respiratory Rate 18 11/14/19 05:16 Blood Pressure 151/78 11/14/19 05:16 O2 Sat by Pulse Oximetry (%) 97 11/14/19 05:16 11/14/19 09:48 Laboratory Last Values WBC 8.4 K/mm3 (4.0-10.0) 11/12/19 11:10 RBC 4.50 M/mm3 (4.00-5.60) 11/12/19 11:10 Hgb 13.5 GM/dL (11.7-16.9) 11/12/19 11:10 Hct 40.5 % (35.4-49) 11/12/19 11:10 MCV 90.0 fl (80-96) 11/12/19 11:10 MCH 29.9 pg (25.7-33.7) 11/12/19 11:10 MCHC 33.3 g/dl (32.0-35.9) 11/12/19 11:10 RDW 15.0 % (11.9-15.9) 11/12/19 11:10 Plt Count 231 K/MM3 (134-434) D 11/12/19 11:10 MPV 8.6 fl (7.5-11.1) 11/12/19 11:10 Sodium 138 mmol/L (136-145) 11/12/19 11:10 Potassium 4.2 mmol/L (3.5-5.1) 11/12/19 11:10 Chloride 105 mmol/L (98-107) 11/12/19 11:10 Carbon Dioxide 21 mmol/L (21-32) 11/12/19 11:10 Anion Gap 12 MMOL/L (8-16) 11/12/19 11:10 BUN 16.3 mg/dL (7-18) 11/12/19 11:10 Creatinine 1.3 mg/dL (0.55-1.3) 11/12/19 11:10 Est GFR (CKD-EPI)AfAm 67.30 11/12/19 11:10 Est GFR (CKD-EPI)NonAf 58.07 11/12/19 11:10 Random Glucose 76 mg/dL (74-106) 11/12/19 11:10 Calcium 9.0 mg/dL (8.5-10.1) 11/12/19 11:10 Total Bilirubin 1.0 mg/dL (0.2-1) 11/12/19 11:10 AST 30 U/L (15-37) 11/12/19 11:10 ALT 42 U/L (13-61) 11/12/19 11:10 Alkaline Phosphatase 82 U/L (45-117) 11/12/19 11:10 Total Protein 8.0 g/dl (6.4-8.2) 11/12/19 11:10 Albumin 4.2 g/dl (3.4-5.0) 11/12/19 11:10 Syphilis Serology Reactive (NONREACTIVE) A* 11/12/19 11:10 RPR Titer Reactive 1:1 (NONREACTIVE) H 11/12/19 11:10 COVID-19 (DREAD) Not detected (Not Detected) 11/12/19 11:10 Assessment: 11/14/19 09:48 withdrawal symptom Plan: continue detox librium regimen,anusol hc 2.5% ream hs for hemorrhoid
[2019-11-14] MEDS: PRENATAL VITAMINS W/ FOLIC ACID TABLET (FP) PO SCH (10:32)
[2019-11-14] MEDS: CARBAMIDE PEROXIDE 6.5% OTIC 15 ML BOTTLE AD SCH ×2 (10:33→23:19)
[2019-11-14] MEDS: FLUTICASONE PROP 0.05% 16 GM NASAL SPRAY NS SCH ×2 (10:33→23:20)
[2019-11-14] MEDS: ARTIFICIAL TEARS (POLYVINYL ALCOHOL) OPTH DROPS OU SCH ×2 (10:33→23:19)
[2019-11-14] MEDS: HYDROCORTISONE 0.5% TOPICAL CREAM 30 GM TUBE TP SCH ×2 (10:33→23:20)
[2019-11-14] MEDS: NAPROXEN 500 MG TABLET PO PRN (10:37)
[2019-11-14] MEDS: MAG HYDROX/AL HYDROX/SIMETH 30 ML UNIT-DOSE CUP PO PRN (12:40)
[2019-11-14] MEDS: MENTHOL/PHENOL 1 EACH UD MM PRN (12:40)
[2019-11-14] MEDS: ACETAMINOPHEN 325 MG TABLET (FP) PO PRN (17:30)
[2019-11-14] MEDS: BENZOCAINE 20 % GEL TUBE MM PRN (17:32)
[2019-11-14] MEDS: HYDROCORTISONE 2.5% TOPICAL CREAM 30 GM TUBE RC SCH (23:19)
[2019-11-14] MEDS: THIAMINE HCL 100 MG TABLET (FP) PO SCH (23:20)
[2019-11-14] MEDS: MELATONIN 5 MG TABLETS PO SCH (23:20)
[2019-11-15] MEDS ORDERED: chlordiazePOXIDE HCL 10 MG CAPSULE PO PRN
[2019-11-15] MEDS: FAMOTIDINE 20 MG TABLET PO SCH (05:06)
[2019-11-15] MEDS: chlordiazePOXIDE HCL 10 MG CAPSULE PO SCH ×4 (05:06→22:21)
[2019-11-15] MEDS: hydrOXYzine PAMOATE 25 MG CAPSULE (FP) PO SCH ×5 (05:07→22:21)
--- NOTE | 2019-11-15 10:37 | PN ---
S CIWA - CIWA Score Nausea/Vomitin-No Nausea/No Vomiting Muscle Tremors: 1-None Visible, but [place] Anxiety: 2 Agitation: 2 Paroxysmal Sweats: No Perspiration Orientation: 0-Oriented Tacttile Disturbances: 0-None Auditory Disturbances: 0-None Visual Disturbances: 0-None Headache: 1-Very Mild CIWA-Ar Total Score: 6 BHS Progress Note (SOAP) Subjective: alert,irritable,anxious,interrupted sleep,body ache Objective: 11/15/19 10:36 Vital Signs Temperature 96.8 F L 11/15/19 08:39 Pulse Rate 87 11/15/19 08:39 Respiratory Rate 19 11/15/19 08:39 Blood Pressure 147/81 11/15/19 08:39 O2 Sat by Pulse Oximetry (%) 98 11/15/19 08:39 Assessment: 11/15/19 10:37 withdrawal symptom Plan: continue detox librium regimen
[2019-11-15] MEDS: PRENATAL VITAMINS W/ FOLIC ACID TABLET (FP) PO SCH (10:53)
[2019-11-15] MEDS: ARTIFICIAL TEARS (POLYVINYL ALCOHOL) OPTH DROPS OU SCH ×2 (10:54→22:22)
[2019-11-15] MEDS: CARBAMIDE PEROXIDE 6.5% OTIC 15 ML BOTTLE AD SCH ×2 (10:54→22:22)
[2019-11-15] MEDS: HYDROCORTISONE 0.5% TOPICAL CREAM 30 GM TUBE TP SCH ×2 (10:54→22:23)
[2019-11-15] MEDS: FLUTICASONE PROP 0.05% 16 GM NASAL SPRAY NS SCH ×2 (10:55→22:22)
[2019-11-15] MEDS: MENTHOL/PHENOL 1 EACH UD MM PRN ×2 (10:56→17:29)
[2019-11-15] MEDS: NAPROXEN 500 MG TABLET PO PRN ×2 (10:57→22:24)
[2019-11-15] MEDS: THIAMINE HCL 100 MG TABLET (FP) PO SCH (22:21)
[2019-11-15] MEDS: MELATONIN 5 MG TABLETS PO SCH (22:21)
[2019-11-15] MEDS: HYDROCORTISONE 2.5% TOPICAL CREAM 30 GM TUBE RC SCH (22:22)
[2019-11-15] MEDS: BENZOCAINE 20 % GEL TUBE MM PRN (22:23)
[2019-11-16] MEDS: hydrOXYzine PAMOATE 25 MG CAPSULE (FP) PO SCH ×5 (05:07→23:13)
[2019-11-16] MEDS: FAMOTIDINE 20 MG TABLET PO SCH (05:07)
[2019-11-16] MEDS: chlordiazePOXIDE HCL 10 MG CAPSULE PO SCH ×2 (05:08→16:23)
[2019-11-16] MEDS: FLUTICASONE PROP 0.05% 16 GM NASAL SPRAY NS SCH ×2 (10:07→23:12)
[2019-11-16] MEDS: PRENATAL VITAMINS W/ FOLIC ACID TABLET (FP) PO SCH (10:07)
[2019-11-16] MEDS: CARBAMIDE PEROXIDE 6.5% OTIC 15 ML BOTTLE AD SCH ×2 (10:08→23:11)
[2019-11-16] MEDS: ARTIFICIAL TEARS (POLYVINYL ALCOHOL) OPTH DROPS OU SCH ×2 (10:08→23:11)
[2019-11-16] MEDS: HYDROCORTISONE 0.5% TOPICAL CREAM 30 GM TUBE TP SCH ×2 (10:09→23:12)
[2019-11-16] MEDS: NAPROXEN 500 MG TABLET PO PRN (10:10)
--- NOTE | 2019-11-16 11:20 | PN ---
[facility] CIWA - CIWA Score Nausea/Vomitin-No Nausea/No Vomiting Muscle Tremors: 2 Anxiety: 2 Agitation: 0-Normal Activity Paroxysmal Sweats: No Perspiration Orientation: 0-Oriented Tacttile Disturbances: 0-None Auditory Disturbances: 0-None Visual Disturbances: 1-Very Mild Sensitivity Headache: 0-None Present CIWA-Ar Total Score: 5 S Progress Note (SOAP) Subjective: Complaints of mild tremors and anxiety. Objective: 11/16/19 11:18 Vital Signs 11/16/19 11/16/19 05:01 08:48 Temperature 97.5 F L 97.3 F L Pulse Rate 60 79 Respiratory 16 17 Rate Blood Pressure 129/78 152/73 O2 Sat by Pulse 97 100 Oximetry (%) Laboratory Last Values WBC 8.4 K/mm3 (4.0-10.0) 11/12/19 11:10 RBC 4.50 M/mm3 (4.00-5.60) 11/12/19 11:10 Hgb 13.5 GM/dL (11.7-16.9) 11/12/19 11:10 Hct 40.5 % (35.4-49) 11/12/19 11:10 MCV 90.0 fl (80-96) 11/12/19 11:10 MCH 29.9 pg (25.7-33.7) 11/12/19 11:10 MCHC 33.3 g/dl (32.0-35.9) 11/12/19 11:10 RDW 15.0 % (11.9-15.9) 11/12/19 11:10 Plt Count 231 K/MM3 (134-434) D 11/12/19 11:10 MPV 8.6 fl (7.5-11.1) 11/12/19 11:10 Sodium 138 mmol/L (136-145) 11/12/19 11:10 Potassium 4.2 mmol/L (3.5-5.1) 11/12/19 11:10 Chloride 105 mmol/L (98-107) 11/12/19 11:10 Carbon Dioxide 21 mmol/L (21-32) 11/12/19 11:10 Anion Gap 12 MMOL/L (8-16) 11/12/19 11:10 BUN 16.3 mg/dL (7-18) 11/12/19 11:10 Creatinine 1.3 mg/dL (0.55-1.3) 11/12/19 11:10 Est GFR (CKD-EPI)AfAm 67.30 11/12/19 11:10 Est GFR (CKD-EPI)NonAf 58.07 11/12/19 11:10 Random Glucose 76 mg/dL (74-106) 11/12/19 11:10 Calcium 9.0 mg/dL (8.5-10.1) 11/12/19 11:10 Total Bilirubin 1.0 mg/dL (0.2-1) 11/12/19 11:10 AST 30 U/L (15-37) 11/12/19 11:10 ALT 42 U/L (13-61) 11/12/19 11:10 Alkaline Phosphatase 82 U/L (45-117) 11/12/19 11:10 Total Protein 8.0 g/dl (6.4-8.2) 11/12/19 11:10 Albumin 4.2 g/dl (3.4-5.0) 11/12/19 11:10 Syphilis Serology Reactive (NONREACTIVE) A* 11/12/19 11:10 RPR Titer Reactive 1:1 (NONREACTIVE) H 11/12/19 11:10 COVID-19 (DREAD) Not detected (Not Detected) 11/12/19 11:10 Labs noted Assessment: 11/16/19 11:19 Alert and oriented x 3, in no acute respiratory distress. Full ROM, ambulating in the unit without assistance. Mild withdrawal symptoms. For D/C in AM Plan: Continue detox protocol. D/C AM
[2019-11-16] MEDS: MAG HYDROX/AL HYDROX/SIMETH 30 ML UNIT-DOSE CUP PO PRN (12:58)
[2019-11-16] MEDS: MENTHOL/PHENOL 1 EACH UD MM PRN (16:23)
[2019-11-16] MEDS: HYDROCORTISONE 2.5% TOPICAL CREAM 30 GM TUBE RC SCH (23:11)
[2019-11-16] MEDS: MELATONIN 5 MG TABLETS PO SCH (23:12)
[2019-11-16] MEDS: THIAMINE HCL 100 MG TABLET (FP) PO SCH (23:13)
[2019-11-17] MEDS ORDERED: chlordiazePOXIDE HCL 10 MG CAPSULE PO ONE (05:00)
[2019-11-17] MEDS: FAMOTIDINE 20 MG TABLET PO SCH (05:27)
[2019-11-17] MEDS: hydrOXYzine PAMOATE 25 MG CAPSULE (FP) PO SCH ×2 (05:27→10:43)
[2019-11-17] MEDS: CARBAMIDE PEROXIDE 6.5% OTIC 15 ML BOTTLE AD SCH (10:43)
[2019-11-17] MEDS: PRENATAL VITAMINS W/ FOLIC ACID TABLET (FP) PO SCH (10:43)
[2019-11-17] MEDS: FLUTICASONE PROP 0.05% 16 GM NASAL SPRAY NS SCH (10:44)
[2019-11-17] MEDS: ARTIFICIAL TEARS (POLYVINYL ALCOHOL) OPTH DROPS OU SCH (10:44)
[2019-11-17] MEDS: HYDROCORTISONE 0.5% TOPICAL CREAM 30 GM TUBE TP SCH (10:45)
[2019-11-17] MEDS: BENZOCAINE 20 % GEL TUBE MM PRN (10:46)
[2019-11-17] MEDS: NAPROXEN 500 MG TABLET PO PRN (10:47)
[2019-11-17 10:50] VITALS: BP 141/77; PULSE 920; TEMP 98.4
--- NOTE | 2019-11-17 11:07 | DS ---
[facility] Detox Discharge Summary Admission Date: 11/12/19 Discharge Date: 11/17/19 - History Present History: Alcohol Dependence Additional Comments: Patient completed detox successfully and await discharge to [facility] inpatient rehab. Patient is stable for discharge. Noted with syphilis ab, reactive 1:1; patient stated he was treated for syphilis in 2015 and denies any s/sx of syphilis, noted with elevated b/p: denies htn, could be r/t anxiety. Pt instructed to follow up with PCP within 1 week post discharge from rehab. Pertinent Past History: GERD Nicotine dependence Alcohol dependence Cocaine abuse Cannabis abuse Depression - Physical Exam Results Vital Signs: Vital Signs Temperature 97.3 F L 11/17/19 05:20 Pulse Rate 64 11/17/19 05:20 Respiratory Rate 18 11/17/19 05:20 Blood Pressure 143/81 11/17/19 05:20 O2 Sat by Pulse Oximetry (%) 100 11/17/19 05:20 Pertinent Admission Physical Exam Findings: Withdrawal sxs Laboratory Tests 11/12/19 11/12/19 11/12/19 11:10 11:10 11:10 WBC 8.4 RBC 4.50 Hgb 13.5 Hct 40.5 MCV 90.0 MCH 29.9 MCHC 33.3 RDW 15.0 Plt Count 231 D MPV 8.6 Sodium 138 Potassium 4.2 Chloride 105 Carbon Dioxide 21 Anion Gap 12 BUN 16.3 Creatinine 1.3 Est GFR (CKD-EPI)AfAm 67.30 Est GFR (CKD-EPI)NonAf 58.07 Random Glucose 76 Calcium 9.0 Total Bilirubin 1.0 AST 30 ALT 42 Alkaline Phosphatase 82 Total Protein 8.0 Albumin 4.2 Syphilis Serology Reactive A* RPR Titer COVID-19 (DREAD) 11/12/19 11/12/19 11:10 11:10 WBC RBC Hgb Hct MCV MCH MCHC RDW Plt Count MPV Sodium Potassium Chloride Carbon Dioxide Anion Gap BUN Creatinine Est GFR (CKD-EPI)AfAm Est GFR (CKD-EPI)NonAf Random Glucose Calcium Total Bilirubin AST ALT Alkaline Phosphatase Total Protein Albumin Syphilis Serology RPR Titer Reactive 1:1 H COVID-19 (DREAD) Not detected Labs reviewed: RPR reactive 1:1, treated in 2015 as per patient, denies any s/sx of syphilis, instructed to follow up with PCP post discharge - Treatment Hospital Course: Detox Protocol Followed, Detoxed Safely, Responded well, Discharged Condition Good, Rehab Referral Accepted - Medication Discharge Medications: Ambulatory Orders Fluticasone Propionate [Flonase Allergy Relief] 2 spray IN BID 05/04/19 Naproxen [Naprosyn] 500 mg PO BID PRN 05/04/19 Lansoprazole [Prevacid] 30 mg PO DAILY 06/12/19 Polyvinyl Alcohol [Artificial Tears] 2 ml OP BID 06/12/19 Loratadine [Claritin -] 10 mg PO DAILY 09/26/19 - Diagnosis (1) Cannabis abuse Current Visit: Yes Status: Chronic (2) Cocaine abuse Current Visit: Yes Status: Chronic (3) Alcohol dependence with uncomplicated withdrawal Current Visit: Yes Status: Acute (4) Nicotine dependence Current Visit: Yes Status: Acute (5) GERD (gastroesophageal reflux disease) Current Visit: Yes Status: Chronic Qualifiers: Esophagitis presence: without esophagitis Qualified Code(s): K21.9 - Gastro-esophageal reflux disease without esophagitis (6) History of syphilis Current Visit: Yes Status: Acute (7) Elevated blood-pressure reading, without diagnosis of hypertension Current Visit: Yes Status: Acute - AMA Did Patient Leave Against Medical Advice: No (Patient accepted admission to [facility] rehab)
[2019-11-17] MEDS: MENTHOL/PHENOL 1 EACH UD MM PRN (11:38)
== END 2019-11-17 11:58 | disposition other institution (70) | DRG 774 ==
LOC: YASAS 09:33 → Y6N 11:29
PROVIDERS: ADMIT Allergy & Immunology; ATTEND Allergy & Immunology
PROC: HZ2ZZZZ Detoxification Services for Substance Abuse Treatment (ICD-10-PCS; principal; 2019-11-12)
DX: F10.230 Alcohol dependence with withdrawal, uncomplicated (principal); F14.20 Cocaine dependence, uncomplicated; F12.20 Cannabis dependence, uncomplicated; F17.210 Nicotine dependence, cigarettes, uncomplicated; F32.9 Major depressive disorder, single episode, unspecified; K21.9 Gastro-esophageal reflux disease without esophagitis; K42.9 Umbilical hernia without obstruction or gangrene; K43.9 Ventral hernia without obstruction or gangrene; K64.9 Unspecified hemorrhoids; L29.0 Pruritus ani; R03.0 Elevated blood-pressure reading, without diagnosis of hypertension; Z86.19 Personal history of other infectious and parasitic diseases; Z88.0 Allergy status to penicillin; Z88.7 Allergy status to serum and vaccine; Z91.018 Allergy to other foods; Z59.0 Homelessness
CPT/HCPCS: 36415; 80053; 85027; 86593; 86780; U0003

== ENCOUNTER 2019-11-17 11:26 | Inpatient (IN) | payer OTHER ==
[2019-11-17] MEDS ORDERED: LOPERAMIDE HCL 2 MG CAPSULE PO PRN (11:52)
[2019-11-17] MEDS ORDERED: guaiFENesin 200 MG/10 ML 10 ML UNIT-DOSE CUPS PO PRN (11:52)
[2019-11-17] MEDS ORDERED: NICOTINE POLACRILEX 2 MG GUM BUC PRN (11:52)
[2019-11-17] MEDS ORDERED: MAGNESIUM CITRATE 300 ML BOTTLE PO PRN (11:52)
[2019-11-17] MEDS ORDERED: MAGNESIUM HYDROX 2400MG/30ML ORAL SUSPENSION 30 ML CUP PO PRN (11:52)
[2019-11-17] MEDS ORDERED: P-EPHED 60MG/TRIPROLIDI 2.5MG TABLET PO PRN (11:52)
[2019-11-17] MEDS ORDERED: MAG HYDROX/AL HYDROX/SIMETH 30 ML UNIT-DOSE CUP PO PRN (11:52)
[2019-11-17] MEDS ORDERED: IBUPROFEN 400 MG TABLET (FP) PO PRN (11:52)
--- NOTE | 2019-11-17 11:52 | HP ---
[facility] Rehab Assess/Revision - Admission History Admitted to Rehab from: Y 6 Ja Date of Admission to Rehab: 11/17/2019 - Findings Detox History & Physical reviewed: Yes Concur with findings: Yes Inpatient Rehab Admission - Rehab Decision to Admit Inpatient rehab admission?: Yes - Initial Determination Are CD services needed?: No Free of communicable disease: Yes Not in need of hospitalization: No - Rehab Admission Criteria Previous failed treatment: Yes Poor recovery environment: Yes Comorbidities: Yes Lacks judgement: Yes Patient is meeting Inpatient Rehab admission criteria:: Yes
[2019-11-17] MEDS: MENTHOL/PHENOL 1 EACH UD MM PRN ×2 (12:06→21:08)
[2019-11-17] MEDS: hydrOXYzine PAMOATE 25 MG CAPSULE (FP) PO SCH ×3 (14:50→21:22)
[2019-11-17] MEDS ORDERED: PT OWN MED DRAWER 7, Y5N ONE ×2 (18:22→21:12)
[2019-11-17] MEDS: NAPROXEN 500 MG TABLET PO PRN (21:10)
[2019-11-17] MEDS: HYDROCORTISONE 2.5% TOPICAL CREAM 30 GM TUBE RC SCH (21:11)
[2019-11-17] MEDS: HYDROCORTISONE 0.5% TOPICAL CREAM 30 GM TUBE TP SCH (21:12)
[2019-11-17] MEDS: ARTIFICIAL TEARS (POLYVINYL ALCOHOL) OPTH DROPS OU SCH (21:12)
[2019-11-17] MEDS: THIAMINE HCL 100 MG TABLET (FP) PO SCH (21:12)
[2019-11-17] MEDS: MELATONIN 5 MG TABLETS PO SCH (21:12)
[2019-11-17] MEDS: FLUTICASONE PROP 0.05% 16 GM NASAL SPRAY NS SCH (21:12)
[2019-11-18] MEDS ORDERED: PT OWN MED DRAWER 7, Y5N ONE ×2 (06:35→10:03)
[2019-11-18] MEDS: ACETAMINOPHEN 325 MG TABLET (FP) PO PRN (06:37)
[2019-11-18] MEDS: MENTHOL/PHENOL 1 EACH UD MM PRN (06:39)
[2019-11-18] MEDS: hydrOXYzine PAMOATE 25 MG CAPSULE (FP) PO SCH ×5 (06:39→21:33)
[2019-11-18] MEDS: PRENATAL VITAMINS W/ FOLIC ACID TABLET (FP) PO SCH (09:57)
[2019-11-18] MEDS: NAPROXEN 500 MG TABLET PO PRN ×2 (09:57→21:32)
[2019-11-18] MEDS: FLUTICASONE PROP 0.05% 16 GM NASAL SPRAY NS SCH ×2 (09:58→21:33)
[2019-11-18] MEDS: ARTIFICIAL TEARS (POLYVINYL ALCOHOL) OPTH DROPS OU SCH ×2 (09:58→21:33)
[2019-11-18] MEDS ORDERED: FAMOTIDINE 20 MG TABLET PO SCH (10:00)
[2019-11-18] MEDS: HYDROCORTISONE 0.5% TOPICAL CREAM 30 GM TUBE TP SCH ×2 (10:01→21:33)
[2019-11-18] MEDS: THIAMINE HCL 100 MG TABLET (FP) PO SCH (21:32)
[2019-11-18] MEDS: HYDROCORTISONE 2.5% TOPICAL CREAM 30 GM TUBE RC SCH (21:33)
[2019-11-18] MEDS: MELATONIN 5 MG TABLETS PO SCH (21:33)
[2019-11-19] MEDS: FAMOTIDINE 20 MG TABLET PO SCH ×2 (05:45→10:39)
[2019-11-19] MEDS: MENTHOL/PHENOL 1 EACH UD MM PRN (05:46)
[2019-11-19] MEDS: hydrOXYzine PAMOATE 25 MG CAPSULE (FP) PO SCH ×2 (06:22→10:38)
[2019-11-19] MEDS: ACETAMINOPHEN 325 MG TABLET (FP) PO PRN (07:12)
[2019-11-19] MEDS: PRENATAL VITAMINS W/ FOLIC ACID TABLET (FP) PO SCH (10:36)
[2019-11-19] MEDS: NAPROXEN 500 MG TABLET PO PRN (10:36)
[2019-11-19] MEDS: ARTIFICIAL TEARS (POLYVINYL ALCOHOL) OPTH DROPS OU SCH ×2 (10:37→21:45)
[2019-11-19] MEDS: HYDROCORTISONE 0.5% TOPICAL CREAM 30 GM TUBE TP SCH (10:37)
[2019-11-19] MEDS: FLUTICASONE PROP 0.05% 16 GM NASAL SPRAY NS SCH ×2 (10:37→21:45)
[2019-11-19] MEDS ORDERED: BENZOCAINE 20 % GEL TUBE MM PRN (11:19)
[2019-11-19] MEDS ORDERED: hydrOXYzine PAMOATE 25 MG CAPSULE (FP) PO PRN (11:20)
--- NOTE | 2019-11-19 15:50 | PN ---
[facility] Progress Note Note: patient c/o rash on chest, arms, thigh. Increased hydrocortisone cream and added benadryl.
[2019-11-19] MEDS: MELATONIN 5 MG TABLETS PO SCH (21:45)
[2019-11-19] MEDS: THIAMINE HCL 100 MG TABLET (FP) PO SCH (21:45)
[2019-11-20] MEDS: MENTHOL/PHENOL 1 EACH UD MM PRN ×2 (06:25→21:34)
[2019-11-20] MEDS: ACETAMINOPHEN 325 MG TABLET (FP) PO PRN (06:26)
[2019-11-20] MEDS: FAMOTIDINE 20 MG TABLET PO SCH (06:27)
[2019-11-20] MEDS ORDERED: PT OWN MED DRAWER 7, Y5N ONE (09:07)
[2019-11-20] MEDS: NAPROXEN 500 MG TABLET PO PRN ×2 (09:56→21:34)
[2019-11-20] MEDS: PRENATAL VITAMINS W/ FOLIC ACID TABLET (FP) PO SCH (09:56)
[2019-11-20] MEDS: HYDROCORTISONE 2.5% TOPICAL CREAM 30 GM TUBE RC SCH (09:57)
[2019-11-20] MEDS: FLUTICASONE PROP 0.05% 16 GM NASAL SPRAY NS SCH ×2 (09:57→21:34)
[2019-11-20] MEDS: ARTIFICIAL TEARS (POLYVINYL ALCOHOL) OPTH DROPS OU SCH ×2 (09:57→21:34)
[2019-11-20] MEDS: MELATONIN 5 MG TABLETS PO SCH (21:33)
[2019-11-20] MEDS: THIAMINE HCL 100 MG TABLET (FP) PO SCH (21:33)
[2019-11-21] MEDS: ACETAMINOPHEN 325 MG TABLET (FP) PO PRN ×2 (06:40→14:11)
[2019-11-21] MEDS: MENTHOL/PHENOL 1 EACH UD MM PRN ×2 (06:40→10:30)
[2019-11-21] MEDS: FAMOTIDINE 20 MG TABLET PO SCH (06:41)
[2019-11-21] MEDS: PRENATAL VITAMINS W/ FOLIC ACID TABLET (FP) PO SCH (10:30)
[2019-11-21] MEDS: NAPROXEN 500 MG TABLET PO PRN ×2 (10:30→21:34)
[2019-11-21] MEDS: FLUTICASONE PROP 0.05% 16 GM NASAL SPRAY NS SCH ×2 (10:31→21:32)
[2019-11-21] MEDS: ARTIFICIAL TEARS (POLYVINYL ALCOHOL) OPTH DROPS OU SCH ×2 (10:32→21:32)
[2019-11-21] MEDS: HYDROCORTISONE 2.5% TOPICAL CREAM 30 GM TUBE RC SCH (10:33)
[2019-11-21] MEDS ORDERED: PT OWN MED DRAWER 7, Y5N ONE ×3 (10:33→18:50)
[2019-11-21] MEDS: MAG HYDROX/ALH/SMC/DPHA/LIDO 180 ML MOUTHWASH MM SCH ×2 (12:12→17:55)
[2019-11-21] MEDS: MELATONIN 5 MG TABLETS PO SCH (21:32)
[2019-11-21] MEDS: THIAMINE HCL 100 MG TABLET (FP) PO SCH ×2 (21:33→21:36)
[2019-11-21] MEDS: SENNOSIDES 8.8 MG/5 ML BULK BOTTLE PO SCH (21:35)
[2019-11-22] MEDS: FAMOTIDINE 20 MG TABLET PO SCH (06:03)
[2019-11-22] MEDS: ACETAMINOPHEN 325 MG TABLET (FP) PO PRN ×2 (06:05→13:57)
[2019-11-22] MEDS: MENTHOL/PHENOL 1 EACH UD MM PRN ×2 (06:05→20:03)
[2019-11-22] MEDS: MAG HYDROX/ALH/SMC/DPHA/LIDO 180 ML MOUTHWASH MM SCH ×3 (06:06→13:16)
[2019-11-22] MEDS: PRENATAL VITAMINS W/ FOLIC ACID TABLET (FP) PO SCH (10:31)
[2019-11-22] MEDS: NAPROXEN 500 MG TABLET PO PRN ×2 (10:31→21:28)
[2019-11-22] MEDS: FLUTICASONE PROP 0.05% 16 GM NASAL SPRAY NS SCH ×2 (10:33→21:53)
[2019-11-22] MEDS: ARTIFICIAL TEARS (POLYVINYL ALCOHOL) OPTH DROPS OU SCH ×2 (10:34→21:52)
[2019-11-22] MEDS ORDERED: PT OWN MED DRAWER 7, Y5N ONE ×2 (10:34→21:30)
[2019-11-22] MEDS: HYDROCORTISONE 2.5% TOPICAL CREAM 30 GM TUBE RC SCH (10:34)
[2019-11-22] MEDS ORDERED: LIDOCAINE VISCOUS 2% ORAL/TOP 100 ML BOTTLE MM PRN (13:00)
--- NOTE | 2019-11-22 13:51 | PN ---
S Progress Note Note: PATIENT EVALUATED FOR TOOTHACHE. PATIENT STATES HE HAS RIGHT UPPER WISDOM TOOTH THAT WAS DUE FOR EXTRACTION PRIOR TO PANDEMIC. PATIENT DID NOT GET PROCEDURE DONE AND C/O TOOTHACHE. HE STATES MAGIC MOUTH WASH NOT HELPING WITH SYMPTOMS. ALSO TREATED WITH NAPROSYN FOR PAIN. HE REPORTS TAKING ANTIBIOTICS A FEW WEEKS AGO BUT DID NOT COMPLETE COURSE. HE DENIES SORE THROAT, COUGH AND FEVER/CHILLS. Vital Signs Temperature 97.3 F L 11/22/19 06:58 Pulse Rate 77 11/22/19 06:58 Respiratory Rate 18 11/22/19 06:58 Blood Pressure 155/89 11/22/19 06:58 O2 Sat by Pulse Oximetry (%) 99 11/22/19 06:58 PE ALERT AND ORIENTED X 3 SKIN WARM AND DRY ORAL MUCOSA MOIST, +TOOTH DECAY, MILD SWELLING TO RIGHT CHEEK AREA NECK SUPPLE, NO JVD EXT FULL ROM, AMB AD RAQUEL A/P: TOOTHACHE/TOOTH DECAY/TOOTH INFECTION WILL START DOXYCYCLINE 100MG PO BID X 7 DAYS D/C MM START VISCOUS LIDOCAINE 5% NEEDED CONTINUE NAPROSYN ORDERED MONITOR CLINICALLY
[2019-11-22] MEDS: LIDOCAINE VISCOUS 2% ORAL/TOP 20 ML UNIT-DOSE CUP MM PRN ×2 (13:57→19:58)
[2019-11-22] MEDS: DOXYCYCLINE HYCLATE 100 MG TABLET PO SCH (19:10)
[2019-11-22] MEDS: THIAMINE HCL 100 MG TABLET (FP) PO SCH (21:28)
[2019-11-22] MEDS: MELATONIN 5 MG TABLETS PO SCH (21:53)
[2019-11-22] MEDS: SODIUM CHLORIDE NASAL SPRAY 44 ML BOTTLE NS SCH (21:53)
[2019-11-22] MEDS: SENNOSIDES 8.8 MG/5 ML BULK BOTTLE PO SCH (21:53)
[2019-11-23] MEDS: FAMOTIDINE 20 MG TABLET PO SCH (06:45)
[2019-11-23] MEDS: MENTHOL/PHENOL 1 EACH UD MM PRN (06:45)
[2019-11-23] MEDS: ACETAMINOPHEN 325 MG TABLET (FP) PO PRN ×2 (06:45→18:00)
[2019-11-23] MEDS ORDERED: PT OWN MED DRAWER 7, Y5N ONE ×4 (06:48→22:10)
[2019-11-23] MEDS: DOXYCYCLINE HYCLATE 100 MG TABLET PO SCH ×2 (09:56→17:58)
[2019-11-23] MEDS: PRENATAL VITAMINS W/ FOLIC ACID TABLET (FP) PO SCH (09:56)
[2019-11-23] MEDS: HYDROCORTISONE 2.5% TOPICAL CREAM 30 GM TUBE RC SCH (09:57)
[2019-11-23] MEDS: FLUTICASONE PROP 0.05% 16 GM NASAL SPRAY NS SCH ×2 (09:58→22:11)
[2019-11-23] MEDS: NAPROXEN 500 MG TABLET PO PRN ×2 (09:59→22:11)
[2019-11-23] MEDS: ARTIFICIAL TEARS (POLYVINYL ALCOHOL) OPTH DROPS OU SCH ×2 (10:15→22:10)
[2019-11-23] MEDS: MAGNESIUM HYDROX 2400MG/30ML ORAL SUSPENSION 30 ML CUP PO PRN (11:37)
[2019-11-23] MEDS: LIDOCAINE VISCOUS 2% ORAL/TOP 20 ML UNIT-DOSE CUP MM PRN (18:00)
[2019-11-23] MEDS: MELATONIN 5 MG TABLETS PO SCH (22:11)
[2019-11-23] MEDS: SODIUM CHLORIDE NASAL SPRAY 44 ML BOTTLE NS SCH (22:11)
[2019-11-23] MEDS: THIAMINE HCL 100 MG TABLET (FP) PO SCH (22:11)
[2019-11-23] MEDS: SENNOSIDES 8.8 MG/5 ML BULK BOTTLE PO SCH (22:11)
[2019-11-24] MEDS: MAGNESIUM HYDROX 2400MG/30ML ORAL SUSPENSION 30 ML CUP PO PRN (06:47)
[2019-11-24] MEDS: MENTHOL/PHENOL 1 EACH UD MM PRN (06:47)
[2019-11-24] MEDS: ACETAMINOPHEN 325 MG TABLET (FP) PO PRN ×2 (06:47→15:18)
[2019-11-24] MEDS: FAMOTIDINE 20 MG TABLET PO SCH (06:47)
[2019-11-24] MEDS: DOXYCYCLINE HYCLATE 100 MG TABLET PO SCH ×2 (09:50→17:36)
[2019-11-24] MEDS: FLUTICASONE PROP 0.05% 16 GM NASAL SPRAY NS SCH ×2 (09:50→21:33)
[2019-11-24] MEDS: ARTIFICIAL TEARS (POLYVINYL ALCOHOL) OPTH DROPS OU SCH ×2 (09:50→21:33)
[2019-11-24] MEDS: PRENATAL VITAMINS W/ FOLIC ACID TABLET (FP) PO SCH (09:50)
[2019-11-24] MEDS: HYDROCORTISONE 2.5% TOPICAL CREAM 30 GM TUBE RC SCH (09:50)
[2019-11-24] MEDS: LIDOCAINE VISCOUS 2% ORAL/TOP 20 ML UNIT-DOSE CUP MM PRN ×3 (09:52→21:34)
[2019-11-24] MEDS: NAPROXEN 500 MG TABLET PO PRN ×2 (09:52→21:30)
[2019-11-24] MEDS ORDERED: PT OWN MED DRAWER 7, Y5N ONE (20:03)
[2019-11-24] MEDS: MELATONIN 5 MG TABLETS PO SCH (21:30)
[2019-11-24] MEDS: THIAMINE HCL 100 MG TABLET (FP) PO SCH (21:30)
[2019-11-24] MEDS: SENNOSIDES 8.8 MG/5 ML BULK BOTTLE PO SCH (21:32)
[2019-11-24] MEDS: SODIUM CHLORIDE NASAL SPRAY 44 ML BOTTLE NS SCH (21:33)
[2019-11-25] MEDS: ACETAMINOPHEN 325 MG TABLET (FP) PO PRN ×2 (07:04→16:55)
[2019-11-25] MEDS: FAMOTIDINE 20 MG TABLET PO SCH (07:04)
[2019-11-25] MEDS: MAGNESIUM HYDROX 2400MG/30ML ORAL SUSPENSION 30 ML CUP PO PRN (07:04)
[2019-11-25] MEDS: MENTHOL/PHENOL 1 EACH UD MM PRN (07:07)
[2019-11-25] MEDS: DOXYCYCLINE HYCLATE 100 MG TABLET PO SCH ×2 (10:43→17:16)
[2019-11-25] MEDS: NAPROXEN 500 MG TABLET PO PRN ×2 (10:43→21:29)
[2019-11-25] MEDS: PRENATAL VITAMINS W/ FOLIC ACID TABLET (FP) PO SCH (10:43)
[2019-11-25] MEDS: ARTIFICIAL TEARS (POLYVINYL ALCOHOL) OPTH DROPS OU SCH ×2 (10:45→21:28)
[2019-11-25] MEDS: FLUTICASONE PROP 0.05% 16 GM NASAL SPRAY NS SCH ×2 (10:54→21:29)
[2019-11-25] MEDS: HYDROCORTISONE 2.5% TOPICAL CREAM 30 GM TUBE RC SCH (10:55)
[2019-11-25] MEDS ORDERED: PT OWN MED DRAWER 7, Y5N ONE ×4 (10:56→21:33)
[2019-11-25] MEDS: LIDOCAINE VISCOUS 2% ORAL/TOP 20 ML UNIT-DOSE CUP MM PRN ×2 (10:57→16:56)
[2019-11-25] MEDS: SENNOSIDES 8.8 MG/5 ML BULK BOTTLE PO SCH (21:48)
[2019-11-25] MEDS: SODIUM CHLORIDE NASAL SPRAY 44 ML BOTTLE NS SCH (21:48)
[2019-11-25] MEDS: THIAMINE HCL 100 MG TABLET (FP) PO SCH (21:48)
[2019-11-25] MEDS: MELATONIN 5 MG TABLETS PO SCH (21:48)
[2019-11-26] MEDS: ACETAMINOPHEN 325 MG TABLET (FP) PO PRN ×2 (06:43→14:44)
[2019-11-26] MEDS: FAMOTIDINE 20 MG TABLET PO SCH (06:43)
[2019-11-26] MEDS: MAGNESIUM HYDROX 2400MG/30ML ORAL SUSPENSION 30 ML CUP PO PRN (06:43)
[2019-11-26] MEDS: MENTHOL/PHENOL 1 EACH UD MM PRN (06:44)
[2019-11-26] MEDS: NAPROXEN 500 MG TABLET PO PRN ×2 (10:16→21:30)
[2019-11-26] MEDS: LIDOCAINE VISCOUS 2% ORAL/TOP 20 ML UNIT-DOSE CUP MM PRN (10:16)
[2019-11-26] MEDS: PRENATAL VITAMINS W/ FOLIC ACID TABLET (FP) PO SCH (10:16)
[2019-11-26] MEDS ORDERED: PT OWN MED DRAWER 7, Y5N ONE ×3 (10:17→21:28)
[2019-11-26] MEDS: FLUTICASONE PROP 0.05% 16 GM NASAL SPRAY NS SCH (10:18)
[2019-11-26] MEDS: DOXYCYCLINE HYCLATE 100 MG TABLET PO SCH ×2 (10:18→17:48)
[2019-11-26] MEDS: ARTIFICIAL TEARS (POLYVINYL ALCOHOL) OPTH DROPS OU SCH ×2 (10:18→20:30)
[2019-11-26] MEDS: HYDROCORTISONE 2.5% TOPICAL CREAM 30 GM TUBE RC SCH (10:19)
[2019-11-26] MEDS: SODIUM CHLORIDE NASAL SPRAY 44 ML BOTTLE NS SCH (21:30)
[2019-11-26] MEDS: MELATONIN 5 MG TABLETS PO SCH (21:30)
[2019-11-26] MEDS: THIAMINE HCL 100 MG TABLET (FP) PO SCH (21:30)
[2019-11-27] MEDS: ACETAMINOPHEN 325 MG TABLET (FP) PO PRN (06:19)
[2019-11-27] MEDS: FAMOTIDINE 20 MG TABLET PO SCH (06:19)
[2019-11-27] MEDS: MAGNESIUM HYDROX 2400MG/30ML ORAL SUSPENSION 30 ML CUP PO PRN (06:19)
[2019-11-27] MEDS: MENTHOL/PHENOL 1 EACH UD MM PRN (06:20)
[2019-11-27] MEDS ORDERED: PT OWN MED DRAWER 7, Y5N ONE ×3 (08:38→21:17)
[2019-11-27] MEDS: DOXYCYCLINE HYCLATE 100 MG TABLET PO SCH ×2 (10:21→18:05)
[2019-11-27] MEDS: NAPROXEN 500 MG TABLET PO PRN ×2 (10:21→21:15)
[2019-11-27] MEDS: PRENATAL VITAMINS W/ FOLIC ACID TABLET (FP) PO SCH (10:21)
[2019-11-27] MEDS: FLUTICASONE PROP 0.05% 16 GM NASAL SPRAY NS PRN (10:22)
[2019-11-27] MEDS: LIDOCAINE VISCOUS 2% ORAL/TOP 20 ML UNIT-DOSE CUP MM PRN (10:24)
[2019-11-27] MEDS: ARTIFICIAL TEARS (POLYVINYL ALCOHOL) OPTH DROPS OU SCH ×3 (10:27→20:20)
[2019-11-27] MEDS: HYDROCORTISONE 2.5% TOPICAL CREAM 30 GM TUBE RC SCH (10:27)
[2019-11-27] MEDS: THIAMINE HCL 100 MG TABLET (FP) PO SCH (21:15)
[2019-11-27] MEDS: SENNOSIDES 8.6MG TABLET (FP) PO PRN (21:16)
[2019-11-27] MEDS: MELATONIN 5 MG TABLETS PO SCH (21:17)
[2019-11-27] MEDS: SODIUM CHLORIDE NASAL SPRAY 44 ML BOTTLE NS SCH (21:17)
[2019-11-28] MEDS: FAMOTIDINE 20 MG TABLET PO SCH (06:34)
[2019-11-28] MEDS: ACETAMINOPHEN 325 MG TABLET (FP) PO PRN (06:36)
[2019-11-28] MEDS: MENTHOL/PHENOL 1 EACH UD MM PRN (06:36)
[2019-11-28] MEDS ORDERED: PT OWN MED DRAWER 7, Y5N ONE ×3 (08:37→11:42)
[2019-11-28] MEDS: HYDROCORTISONE 2.5% TOPICAL CREAM 30 GM TUBE RC SCH (09:49)
[2019-11-28] MEDS: ARTIFICIAL TEARS (POLYVINYL ALCOHOL) OPTH DROPS OU SCH ×3 (09:50→20:15)
[2019-11-28] MEDS: PRENATAL VITAMINS W/ FOLIC ACID TABLET (FP) PO SCH (09:51)
[2019-11-28] MEDS: DOXYCYCLINE HYCLATE 100 MG TABLET PO SCH ×2 (09:51→18:05)
[2019-11-28] MEDS: FLUTICASONE PROP 0.05% 16 GM NASAL SPRAY NS PRN (09:52)
[2019-11-28] MEDS: NAPROXEN 500 MG TABLET PO PRN (09:53)
[2019-11-28] MEDS: LIDOCAINE VISCOUS 2% ORAL/TOP 20 ML UNIT-DOSE CUP MM PRN (09:53)
[2019-11-28] MEDS: LIDOCAINE 5% TOPICAL PATCH TP SCH (11:43)
[2019-11-28] MEDS: THIAMINE HCL 100 MG TABLET (FP) PO SCH (21:40)
[2019-11-28] MEDS: LIDOCAINE PATCH REMOVAL MC SCH (21:40)
[2019-11-28] MEDS: SODIUM CHLORIDE NASAL SPRAY 44 ML BOTTLE NS SCH (21:40)
[2019-11-28] MEDS: MELATONIN 5 MG TABLETS PO SCH (21:40)
[2019-11-29] MEDS: ACETAMINOPHEN 325 MG TABLET (FP) PO PRN (06:02)
[2019-11-29] MEDS: MAGNESIUM HYDROX 2400MG/30ML ORAL SUSPENSION 30 ML CUP PO PRN (06:03)
[2019-11-29] MEDS: MENTHOL/PHENOL 1 EACH UD MM PRN (06:03)
[2019-11-29] MEDS: FAMOTIDINE 20 MG TABLET PO SCH (06:06)
[2019-11-29] MEDS: NAPROXEN 500 MG TABLET PO PRN ×2 (09:47→21:15)
[2019-11-29] MEDS: LIDOCAINE 5% TOPICAL PATCH TP SCH (09:47)
[2019-11-29] MEDS: PRENATAL VITAMINS W/ FOLIC ACID TABLET (FP) PO SCH (09:47)
[2019-11-29] MEDS: LIDOCAINE VISCOUS 2% ORAL/TOP 20 ML UNIT-DOSE CUP MM PRN (09:49)
[2019-11-29] MEDS: FLUTICASONE PROP 0.05% 16 GM NASAL SPRAY NS PRN (09:50)
[2019-11-29] MEDS: HYDROCORTISONE 2.5% TOPICAL CREAM 30 GM TUBE RC SCH (09:51)
[2019-11-29] MEDS: ARTIFICIAL TEARS (POLYVINYL ALCOHOL) OPTH DROPS OU SCH ×3 (09:51→21:00)
[2019-11-29] MEDS ORDERED: PT OWN MED DRAWER 7, Y5N ONE ×2 (09:53→21:14)
[2019-11-29] MEDS ORDERED: MAG HYDROX/AL HYDROX/SIMETH 30 ML UNIT-DOSE CUP PO PRN (14:35)
[2019-11-29] MEDS: THIAMINE HCL 100 MG TABLET (FP) PO SCH (21:12)
[2019-11-29] MEDS: MELATONIN 5 MG TABLETS PO SCH (21:13)
[2019-11-29] MEDS: SODIUM CHLORIDE NASAL SPRAY 44 ML BOTTLE NS SCH (21:13)
[2019-11-29] MEDS: LIDOCAINE PATCH REMOVAL MC SCH (21:13)
[2019-11-29] MEDS: SENNOSIDES 8.6MG TABLET (FP) PO PRN (21:14)
[2019-11-30] MEDS: FAMOTIDINE 20 MG TABLET PO SCH (06:02)
[2019-11-30] MEDS: ACETAMINOPHEN 325 MG TABLET (FP) PO PRN ×2 (06:02→14:44)
[2019-11-30] MEDS: NAPROXEN 500 MG TABLET PO PRN ×2 (09:30→21:17)
[2019-11-30] MEDS: PRENATAL VITAMINS W/ FOLIC ACID TABLET (FP) PO SCH (09:30)
[2019-11-30] MEDS: LIDOCAINE VISCOUS 2% ORAL/TOP 20 ML UNIT-DOSE CUP MM PRN (09:30)
[2019-11-30] MEDS: FLUTICASONE PROP 0.05% 16 GM NASAL SPRAY NS PRN ×2 (09:31→21:17)
[2019-11-30] MEDS: MENTHOL/PHENOL 1 EACH UD MM PRN (09:31)
[2019-11-30] MEDS ORDERED: PT OWN MED DRAWER 7, Y5N ONE ×5 (09:32→21:39)
[2019-11-30] MEDS: ARTIFICIAL TEARS (POLYVINYL ALCOHOL) OPTH DROPS OU SCH ×3 (09:32→21:20)
[2019-11-30] MEDS: HYDROCORTISONE 2.5% TOPICAL CREAM 30 GM TUBE RC SCH (09:33)
[2019-11-30] MEDS: LIDOCAINE 5% TOPICAL PATCH TP SCH (09:33)
[2019-11-30] MEDS: SENNOSIDES 8.6MG TABLET (FP) PO PRN (21:18)
[2019-11-30] MEDS: LIDOCAINE PATCH REMOVAL MC SCH (21:20)
[2019-11-30] MEDS: THIAMINE HCL 100 MG TABLET (FP) PO SCH (21:20)
[2019-11-30] MEDS: SODIUM CHLORIDE NASAL SPRAY 44 ML BOTTLE NS SCH (21:20)
[2019-11-30] MEDS: MELATONIN 5 MG TABLETS PO SCH (21:20)
[2019-12-01] MEDS: MAGNESIUM HYDROX 2400MG/30ML ORAL SUSPENSION 30 ML CUP PO PRN (06:04)
[2019-12-01] MEDS: ACETAMINOPHEN 325 MG TABLET (FP) PO PRN ×2 (06:04→14:44)
[2019-12-01] MEDS: MENTHOL/PHENOL 1 EACH UD MM PRN ×3 (06:05→21:17)
[2019-12-01] MEDS: FAMOTIDINE 20 MG TABLET PO SCH (06:05)
[2019-12-01] MEDS: PRENATAL VITAMINS W/ FOLIC ACID TABLET (FP) PO SCH (09:36)
[2019-12-01] MEDS: HYDROCORTISONE 2.5% TOPICAL CREAM 30 GM TUBE RC SCH (09:37)
[2019-12-01] MEDS: NAPROXEN 500 MG TABLET PO PRN ×2 (09:37→21:14)
[2019-12-01] MEDS: FLUTICASONE PROP 0.05% 16 GM NASAL SPRAY NS PRN (09:38)
[2019-12-01] MEDS: LIDOCAINE 5% TOPICAL PATCH TP SCH (09:39)
[2019-12-01] MEDS ORDERED: PT OWN MED DRAWER 7, Y5N ONE ×4 (09:40→22:42)
[2019-12-01] MEDS: LIDOCAINE VISCOUS 2% ORAL/TOP 20 ML UNIT-DOSE CUP MM PRN (09:40)
[2019-12-01] MEDS: ARTIFICIAL TEARS (POLYVINYL ALCOHOL) OPTH DROPS OU SCH ×3 (09:44→21:15)
[2019-12-01] MEDS: MELATONIN 5 MG TABLETS PO SCH (21:14)
[2019-12-01] MEDS: THIAMINE HCL 100 MG TABLET (FP) PO SCH (21:14)
[2019-12-01] MEDS: LIDOCAINE PATCH REMOVAL MC SCH (21:14)
[2019-12-01] MEDS: SENNOSIDES 8.6MG TABLET (FP) PO PRN (21:15)
[2019-12-01] MEDS: SODIUM CHLORIDE NASAL SPRAY 44 ML BOTTLE NS SCH (21:51)
[2019-12-02] MEDS: ACETAMINOPHEN 325 MG TABLET (FP) PO PRN (05:57)
[2019-12-02] MEDS: FAMOTIDINE 20 MG TABLET PO SCH (05:57)
[2019-12-02] MEDS: MENTHOL/PHENOL 1 EACH UD MM PRN (05:58)
[2019-12-02 06:52] VITALS: BP 149/80; PULSE 83; TEMP 97.7
[2019-12-02] MEDS ORDERED: PT OWN MED DRAWER 7, Y5N ONE ×2 (08:35→09:31)
[2019-12-02] MEDS: HYDROCORTISONE 2.5% TOPICAL CREAM 30 GM TUBE RC SCH (09:32)
[2019-12-02] MEDS: NAPROXEN 500 MG TABLET PO PRN (09:32)
[2019-12-02] MEDS: ARTIFICIAL TEARS (POLYVINYL ALCOHOL) OPTH DROPS OU SCH (09:33)
[2019-12-02] MEDS: PRENATAL VITAMINS W/ FOLIC ACID TABLET (FP) PO SCH (09:34)
[2019-12-02] MEDS: LIDOCAINE 5% TOPICAL PATCH TP SCH (09:34)
--- NOTE | 2019-12-02 10:28 | DS ---
[facility] Rehab Discharge Summary - [facility] Rehab Discharge Summary Admission Date: 11/17/19 Discharge Date: 12/02/19 - History Present History: Alcohol dependence, Cocaine dependence - Discharge Physical Exam Vital Signs: Vital Signs Temperature 97.7 F 12/02/19 05:54 Pulse Rate 83 12/02/19 05:54 Respiratory Rate 18 12/02/19 05:54 Blood Pressure 149/80 12/02/19 05:54 O2 Sat by Pulse Oximetry (%) 97 12/02/19 05:54 Ambulatory Orders Fluticasone Propionate [Flonase Allergy Relief] 2 spray IN BID 05/04/19 Naproxen [Naprosyn] 500 mg PO BID PRN 05/04/19 Lansoprazole [Prevacid] 30 mg PO DAILY 06/12/19 Polyvinyl Alcohol [Artificial Tears] 2 ml OP BID 06/12/19 Loratadine [Claritin -] 10 mg PO DAILY 09/26/19 ROS: PATIENT DENIES HEADACHE, SHAKES, SWEATS, ANXIETY/RESTLESSNESS, SI/HI, CHEST PAIN, SOB AND DIZZINESS PE ALERT AND ORIENTED X 3 SKIN WARM AND DRY NECK SUPPLE, NO JVD CAR S1S2, RRR RESP CTA BL EXT NO TREMORS, AMB AD RAQUEL FULL ROM A/P; ALCOHOL DEPENDENCE DRY EYES TOOTH ACHE/INFECTION- RESOLVED WITH DOXYCYCLINE TREATMENT PATIENT IS MEDICALLY STABLE FOR D/C AFTERCARE ARRANGED FOR [facility], APPT 12/07/2019 2PM - Treatment Discharge Condition: Discharge condition good Hospital Course: PATIENT DISCHARGED FROM REHAB TODAY FOR ALCOHOL DEPENDENCE. DURING COURSE OF TREATMENT, PATIENT TREATED FOR TOOTH INFECTION AND DRY EYES WITH POSITIVE RESULTS. PATIENT IS MEDICALLY STABLE AT THIS TIME AND DENIES SI/HI. HE ATTENDED ALL GROUP MEETINGS AND 1:1 SESSIONS WITH COUNSELOR. AFTERCARE ARRANGED FOR [facility], APPT 12/07/2019 AT 2PM. - Medication Discharge Medications: Ambulatory Orders Fluticasone Propionate [Flonase Allergy Relief] 2 spray IN BID 05/04/19 Naproxen [Naprosyn] 500 mg PO BID PRN 05/04/19 Lansoprazole [Prevacid] 30 mg PO DAILY 06/12/19 Polyvinyl Alcohol [Artificial Tears] 2 ml OP BID 06/12/19 Loratadine [Claritin -] 10 mg PO DAILY 09/26/19 - Medication-Assisted Treatment (MAT) Medication-Assisted Treatment (MAT): No MAT Follow-up Referral: [facility], APPT 12/07/2019 2PM - Discharge Instructions Diet, activity, other medical instructions: Diet: REG TOLERATED Activity: AD RAQUEL TOLERATED Other medical instructions: F/U WITH PCP RECOMMENDED - AMA Did Patient Leave Against Medical Advice: No
== END 2019-12-02 09:38 | disposition home or self-care (01) | DRG 772 ==
LOC: YASAS 11:26 → Y3W 11:27
PROVIDERS: ADMIT Allergy & Immunology; ATTEND Allergy & Immunology
PROC: HZ42ZZZ Group Counseling for Substance Abuse Treatment, Cognitive-Behavioral (ICD-10-PCS; principal; 2019-11-17)
DX: F10.20 Alcohol dependence, uncomplicated (principal); F14.20 Cocaine dependence, uncomplicated; F12.20 Cannabis dependence, uncomplicated; F17.210 Nicotine dependence, cigarettes, uncomplicated; K04.7 Periapical abscess without sinus; R76.11 Nonspecific reaction to tuberculin skin test without active tuberculosis; R21 Rash and other nonspecific skin eruption; Z59.0 Homelessness; Z88.0 Allergy status to penicillin; Z91.018 Allergy to other foods; Z88.8 Allergy status to other drugs, medicaments and biological substances

== ENCOUNTER 2019-12-19 20:06 | Inpatient (IN) | payer OTHER ==
[2019-12-19 21:16] VITALS: BMI 29.8
--- NOTE | 2019-12-19 21:36 | HP ---
CIWA Score Nausea/Vomitin Muscle Tremors: 4-Moderate,w/Arms Extend Anxiety: 3 Agitation: 3 Paroxysmal Sweats: 3 Orientation: 0-Oriented Tacttile Disturbances: 0-None Auditory Disturbances: 0-None Visual Disturbances: 0-None Headache: 0-None Present CIWA-Ar Total Score: 15 - Admission Criteria OASAS Guidelines: Admission for Medically Managed Detox: Requires at least one of the followin. CIWA greater than 12 2. Seizures within the past 24 hours 3. Delirium tremens within the past 24 hours 4. Hallucinations within the past 24 hours 5. Acute intervention needed for co occurring medical disorder 6. Acute intervention needed for co occurring psychiatric disorder 7. Severe withdrawal that cannot be handled at a lower level of care (continued vomiting, continued diarrhea, abnormal vital signs) requiring intravenous medication and/or fluids 8. Admitting History and Physical - Smoking History Smoking history: Current every day smoker Have you smoked in the past 12 months: Yes Aproximately how many cigarettes per day: 5 - Alcohol/Substance Use Hx Alcohol Use: Yes Admission ROS S - HPI Chief Complaint: Seeking admission to detox from alcohol Allergies/Adverse Reactions: Allergies Allergy/AdvReac Type Severity Reaction Status Date / Time tuberculin, purified protein Allergy Severe Rash Verified 12/19/19 22:27 deriva [Tuberculin,Purif.Prot.Deriv.] tomato [Tomato] Allergy Mild Itching Verified 11/12/19 10:54 Penicillins Allergy Unknown Difficulty Verified 12/19/19 22:27 Breathing History of Present Illness: 64 years old male with a long history of alcohol dependence is seeking admission to detox. Patient is well known to the facility and his last detox was for the period 11/12/2019 - 12/02/2019 and he reports that he relapsed 2 days post Rehab. Patient reports that he was referred from [facility]. He reports drinking 2 pints of Vodka and 3 x 22oz. Budweiser beer daily. His CIWA score is 15 and MARITZA is .260. Her has medical history of umbilical hernia, GERD, Sinusitis, low back pain, hemorrhoids, allergic rhinitis, dry eyes, hypertension, history of positive PPD, history syphilis, denies psych. history and denies suicidal ideation at this time. 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 He is unemployed, lives with friends and denies legal issues. Exam Limitations: Physical Impairment (umbilical hernia) - Ebola screening Have you traveled outside of the country in the last 21 days: No Have you had contact with anyone from an Ebola affected area: No Have you been sick,other than usual withdrawal symptoms: No - Review of Systems Constitutional: Chills, Night Sweats, Changes in sleep EENT: reports: Sinus Pressure Respiratory: reports: No Symptoms reported Cardiac: reports: No Symptoms Reported GI: reports: Nausea, Poor Fluid Intake, Abdominal cramping : reports: No Symptoms Reported Musculoskeletal: reports: Back Pain, Muscle Pain Integumentary: reports: Dryness, Flushing Neuro: reports: Tremors Endocrine: reports: No Symptoms Reported Hematology: reports: No Symptoms Reported Psychiatric: reports: Mood/Affect Appropiate, Orientated x3 Other Systems: Reviewed and Negative Patient History - Patient Medical History Hx Anemia: No Hx Asthma: No Hx Chronic Obstructive Pulmonary Disease (COPD): No Hx Cancer: No Hx Cardiac Disorders: No Hx Congestive Heart Failure: No Hx Hypertension: No Hx Hypercholesterolemia: No Hx Pacemaker: No HX Cerebrovascular Accident: No Hx Seizures: No Hx Dementia: No Hx Diabetes: No Hx Gastrointestinal Disorders: Yes (GERD, Umbilical hernia) Hx Liver Disease: No Hx Genitourinary Disorders: Yes (Hemorrhoids) Hx Sexually Transmitted Disorders: No Hx Renal Disease (ESRD): No Hx Thyroid Disease: No Hx Human Immunodeficiency Virus (HIV): No Hx Hepatitis C: No Hx Depression: No Hx Suicide Attempt: No (Denies suicidal ideation at this time) Hx Bipolar Disorder: No Hx Schizophrenia: No Other Medical History: Low back pain - Patient Surgical History Past Surgical History: No Hx Neurologic Surgery: No Hx Cataract Extraction: No Hx Cardiac Surgery: No Hx Lung Surgery: No Hx Abdominal Surgery: No Hx Appendectomy: No Hx Cholecystectomy: No Hx Genitourinary Surgery: No Hx Orthopedic Surgery: No Anesthesia Reaction: No - PPD History Previous Implant?: No Implanted On Prior [facility] Admission?: No Date: 07/22/19 Results: NEG CXR PPD to be Administered?: No - Reproductive History Patient is a Female of Child Bearing Age (11 -55 yrs old): No (Male) - Smoking Cessation Smoking history: Current every day smoker Have you smoked in the past 12 months: Yes Aproximately how many cigarettes per day: 5 Cigars Per Day: 0 Hx Chewing Tobacco Use: No Initiated information on smoking cessation: Yes 'Breaking Loose' booklet given: 12/19/19 - Substance & Tx. History Hx Alcohol Use: Yes Hx Substance Use: No Substance Use Type: Alcohol Hx Substance Use Treatment: Yes ([facility]) - Substances abused Alcohol Substance route: Oral Frequency: Daily Amount used: 2 pints of Vodka and 3 x 22oz. Budweiser beer Age of first use: 19 Date of last use: 12/19/19 Cocaine Substance route: Inhalation Frequency: 1-3 times last 30 days Amount used: "$200 worth" Age of first use: 26 Date of last use: 11/19/19 Admission Physical Exam BHS - Vital Signs Vital Signs: Vital Signs - 24 hr 12/19/19 21:14 Temperature 98.3 F Pulse Rate 96 H - Physical General Appearance: Yes: Moderate Distress, Tremorous, Anxious HEENTM: Yes: Nasal Congestion, Other (sensitivity to light) Respiratory: Yes: Lungs Clear, Normal Breath Sounds, No Respiratory Distress Neck: Yes: Within Normal Limits Breast: Yes: Breast Exam Deferred Cardiology: Yes: Tachycardia Abdominal: Yes: Normal Bowel Sounds, Protuberent, Hernia Genitourinary: Yes: Within Normal Limits Back: Yes: Normal Inspection Musculoskeletal: Yes: Back pain Extremities: Yes: Tremors 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: Yes: Normal Mood/Affect Integumentary: Yes: Warm Lymphatic: Yes: Within Normal Limits - Diagnostic (1) Alcohol dependence with uncomplicated withdrawal Current Visit: Yes Status: Acute (2) History of syphilis Current Visit: Yes Status: Chronic (3) Nicotine dependence Current Visit: Yes Status: Chronic (4) Abdominal hernia Current Visit: Yes Status: Chronic Qualifiers: Hernia type: other abdominal hernia Obstruction and gangrene presence: without obstruction or gangrene Qualified Code(s): K45.8 - Other specified abdominal hernia without obstruction or gangrene Comment: Umbilica and ventral hernias (5) Back pain Current Visit: No Status: Chronic Qualifiers: Back pain location: low back pain Back pain laterality: unspecified (6) Dry eye Current Visit: Yes Status: Chronic (7) GERD (gastroesophageal reflux disease) Current Visit: Yes Status: Chronic Qualifiers: Esophagitis presence: without esophagitis Qualified Code(s): K21.9 - Gastro-esophageal reflux disease without esophagitis (8) History of positive PPD Current Visit: Yes Status: Chronic Comment: ALLERGY (9) Hypertension Current Visit: Yes Status: Chronic Qualifiers: Hypertension type: essential hypertension Qualified Code(s): I10 - Essential (primary) hypertension (10) Sinusitis chronic, ethmoidal Current Visit: Yes Status: Chronic (11) History of hemorrhoids Current Visit: Yes Status: Chronic Comment: No external hemorrhoids seen Cleared for Admission S - Detox or Rehab [facility] Level of Care: Medically Managed Detox Regimen/Protocol: Librium Claeared for Rehab Admission: No Breathalyzer - Breathalyzer Breathalyzer: 0.260 Urine Drug Screen - Test Device Lot number: [id number] Expiration date: 12/02/21 - Control Is test valid?: Yes - Results Drug screen NEGATIVE: No Urine drug screen results: BZO-Benzodiazepines Inpatient Rehab Admission - Rehab Decision to Admit Inpatient rehab admission?: No
[2019-12-19] MEDS ORDERED: MAGNESIUM CITRATE 300 ML BOTTLE PO PRN (22:07)
[2019-12-19] MEDS ORDERED: IBUPROFEN 400 MG TABLET (FP) PO PRN (22:07)
[2019-12-19] MEDS ORDERED: NICOTINE POLACRILEX 2 MG GUM BUC PRN (22:07)
[2019-12-19] MEDS ORDERED: MENTHOL/PHENOL 1 EACH UD MM PRN (22:07)
[2019-12-19] MEDS ORDERED: METHOCARBAMOL 500 MG TABLET PO PRN (22:07)
[2019-12-19] MEDS ORDERED: ACETAMINOPHEN 325 MG TABLET (FP) PO PRN ×2 (22:07)
[2019-12-19] MEDS ORDERED: chlordiazePOXIDE HCL 25 MG CAPSULE PO PRN (22:07)
[2019-12-19] MEDS ORDERED: BISMUTH SUBSALICYLATE 524 MG/30 ML UD PO PRN (22:07)
[2019-12-19] MEDS ORDERED: ONDANSETRON *ODT* 4 MG TABLET SL ONE (22:30)
[2019-12-20] MEDS: chlordiazePOXIDE HCL 25 MG CAPSULE PO SCH ×5 (00:33→22:35)
--- NOTE | 2019-12-20 09:54 | PN ---
S CIWA - CIWA Score Nausea/Vomitin-Mild Nausea/No Vomiting Muscle Tremors: 2 Anxiety: 3 Agitation: 0-Normal Activity Paroxysmal Sweats: 3 Orientation: 0-Oriented Tacttile Disturbances: 0-None Auditory Disturbances: 0-None Visual Disturbances: 0-None Headache: 2-Mild CIWA-Ar Total Score: 11 S Progress Note (SOAP) Subjective: c/o sweats, anxiety, shakes, stomach upset, and headache. Objective: 12/20/19 09:52 Vital Signs 12/20/19 12/20/19 07:10 09:20 Temperature 97.1 F L 97.3 F L Pulse Rate 92 H 100 H Respiratory 18 20 Rate Blood Pressure 137/84 107/68 O2 Sat by Pulse 100 Oximetry (%) Laboratory Last Values WBC 6.7 K/mm3 (4.0-10.0) 12/20/19 07:50 RBC 4.46 M/mm3 (4.00-5.60) 12/20/19 07:50 Hgb 13.7 GM/dL (11.7-16.9) 12/20/19 07:50 Hct 40.2 % (35.4-49) 12/20/19 07:50 MCV 90.2 fl (80-96) 12/20/19 07:50 MCH 30.7 pg (25.7-33.7) 12/20/19 07:50 MCHC 34.1 g/dl (32.0-35.9) 12/20/19 07:50 RDW 15.4 % (11.9-15.9) 12/20/19 07:50 Plt Count 221 K/MM3 (134-434) 12/20/19 07:50 MPV 8.2 fl (7.5-11.1) 12/20/19 07:50 Sodium 143 mmol/L (136-145) 12/20/19 07:50 Potassium 4.0 mmol/L (3.5-5.1) 12/20/19 07:50 Chloride 109 mmol/L (98-107) H 12/20/19 07:50 Carbon Dioxide 20 mmol/L (21-32) L 12/20/19 07:50 Anion Gap 13 MMOL/L (8-16) 12/20/19 07:50 BUN 18.4 mg/dL (7-18) H 12/20/19 07:50 Creatinine 1.1 mg/dL (0.55-1.3) 12/20/19 07:50 Est GFR (CKD-EPI)AfAm 82.37 12/20/19 07:50 Est GFR (CKD-EPI)NonAf 71.07 12/20/19 07:50 Random Glucose 81 mg/dL (74-106) 12/20/19 07:50 Calcium 8.4 mg/dL (8.5-10.1) L 12/20/19 07:50 Total Bilirubin 0.9 mg/dL (0.2-1) 12/20/19 07:50 AST 62 U/L (15-37) H 12/20/19 07:50 ALT 78 U/L (13-61) H 12/20/19 07:50 Alkaline Phosphatase 69 U/L (45-117) 12/20/19 07:50 Total Protein 7.3 g/dl (6.4-8.2) 12/20/19 07:50 Albumin 3.8 g/dl (3.4-5.0) 12/20/19 07:50 Syphilis Serology Reactive (NONREACTIVE) A* 12/20/19 07:50 Labs noted with reactive syphillis serology, RPR pending. Assessment: 12/20/19 09:53 AOX3, in no acute respiratory distress. Full ROM, ambulating in the unit. Withdrawal symptoms. Syphillis serology is reactive, RPR pending. 12/20/19 11:30 Plan: continue detox.
[2019-12-20] MEDS: MAG HYDROX/AL HYDROX/SIMETH 30 ML UNIT-DOSE CUP PO PRN (10:10)
[2019-12-20] MEDS: PRENATAL VITAMINS W/ FOLIC ACID TABLET (FP) PO SCH (10:10)
[2019-12-20] MEDS: ARTIFICIAL TEARS (POLYVINYL ALCOHOL) OPTH DROPS OU SCH ×2 (10:11→22:35)
[2019-12-20] MEDS: NICOTINE 14 MG/24 HOURS TOPICAL PATCH TD SCH (10:11)
[2019-12-20 10:23] LABS: HEMATOCRIT 40.2 % (35.4-49); HEMOGLOBIN 13.7 GM/dL (11.7-16.9); MCH 30.7 pg (25.7-33.7); MCHC 34.1 g/dl (32.0-35.9); MEAN CELL VOLUME 90.2 fl (80-96); MEAN PLT VOLUME 8.2 fl (7.5-11.1); PLATELET COUNT 221 K/MM3 (134-434); RBC 4.46 M/mm3 (4.00-5.60); RDW 15.4 % (11.9-15.9); WHITE BLOOD COUNT 6.7 K/mm3 (4.0-10.0)
[2019-12-20 10:31] LABS: ALBUMIN 3.8 g/dl (3.4-5.0); BLOOD UREA NITROGEN 18.4 mg/dL (7-18); CALCIUM 8.4 mg/dL (8.5-10.1)
[2019-12-20 10:36] LABS: BILIRUBIN,TOTAL 0.9 mg/dL (0.2-1); CREATININE 1.1 mg/dL (0.55-1.3); TOT PROT 7.3 g/dl (6.4-8.2)
[2019-12-20] MEDS: NAPROXEN 500 MG TABLET PO PRN (18:04)
[2019-12-20] MEDS: FLUTICASONE PROP 0.05% 16 GM NASAL SPRAY NS SCH (22:35)
[2019-12-20] MEDS: THIAMINE HCL 100 MG TABLET (FP) PO SCH (22:35)
[2019-12-20] MEDS: MELATONIN 5 MG TABLETS PO SCH (22:38)
[2019-12-21] MEDS: chlordiazePOXIDE HCL 25 MG CAPSULE PO SCH ×4 (05:55→23:12)
[2019-12-21] MEDS ORDERED: PANTOPRAZOLE 20 MG TABLET PO SCH (10:00)
[2019-12-21] MEDS: ARTIFICIAL TEARS (POLYVINYL ALCOHOL) OPTH DROPS OU SCH ×2 (10:31→23:11)
[2019-12-21] MEDS: PRENATAL VITAMINS W/ FOLIC ACID TABLET (FP) PO SCH (10:31)
[2019-12-21] MEDS: NICOTINE 14 MG/24 HOURS TOPICAL PATCH TD SCH (10:32)
[2019-12-21] MEDS: FLUTICASONE PROP 0.05% 16 GM NASAL SPRAY NS SCH ×2 (10:33→23:11)
--- NOTE | 2019-12-21 13:27 | PN ---
S CIWA - CIWA Score Nausea/Vomitin-No Nausea/No Vomiting Muscle Tremors: None Anxiety: 3 Agitation: 1-Slight > Activity Paroxysmal Sweats: 3 Orientation: 0-Oriented Tacttile Disturbances: 0-None Auditory Disturbances: 0-None Visual Disturbances: 0-None Headache: 1-Very Mild CIWA-Ar Total Score: 8 BHS Progress Note (SOAP) Subjective: c/o sweats, anxiety, and headache. Objective: 12/21/19 13:25 Vital Signs 12/21/19 12/21/19 06:52 08:30 Temperature 97.2 F L 96.8 F L Pulse Rate 85 104 H Respiratory 18 20 Rate Blood Pressure 132/78 125/78 O2 Sat by Pulse 99 Oximetry (%) Laboratory Last Values WBC 6.7 K/mm3 (4.0-10.0) 12/20/19 07:50 RBC 4.46 M/mm3 (4.00-5.60) 12/20/19 07:50 Hgb 13.7 GM/dL (11.7-16.9) 12/20/19 07:50 Hct 40.2 % (35.4-49) 12/20/19 07:50 MCV 90.2 fl (80-96) 12/20/19 07:50 MCH 30.7 pg (25.7-33.7) 12/20/19 07:50 MCHC 34.1 g/dl (32.0-35.9) 12/20/19 07:50 RDW 15.4 % (11.9-15.9) 12/20/19 07:50 Plt Count 221 K/MM3 (134-434) 12/20/19 07:50 MPV 8.2 fl (7.5-11.1) 12/20/19 07:50 Sodium 143 mmol/L (136-145) 12/20/19 07:50 Potassium 4.0 mmol/L (3.5-5.1) 12/20/19 07:50 Chloride 109 mmol/L (98-107) H 12/20/19 07:50 Carbon Dioxide 20 mmol/L (21-32) L 12/20/19 07:50 Anion Gap 13 MMOL/L (8-16) 12/20/19 07:50 BUN 18.4 mg/dL (7-18) H 12/20/19 07:50 Creatinine 1.1 mg/dL (0.55-1.3) 12/20/19 07:50 Est GFR (CKD-EPI)AfAm 82.37 12/20/19 07:50 Est GFR (CKD-EPI)NonAf 71.07 12/20/19 07:50 Random Glucose 81 mg/dL (74-106) 12/20/19 07:50 Calcium 8.4 mg/dL (8.5-10.1) L 12/20/19 07:50 Total Bilirubin 0.9 mg/dL (0.2-1) 12/20/19 07:50 AST 62 U/L (15-37) H 12/20/19 07:50 ALT 78 U/L (13-61) H 12/20/19 07:50 Alkaline Phosphatase 69 U/L (45-117) 12/20/19 07:50 Total Protein 7.3 g/dl (6.4-8.2) 12/20/19 07:50 Albumin 3.8 g/dl (3.4-5.0) 12/20/19 07:50 Syphilis Serology Reactive (NONREACTIVE) A* 12/20/19 07:50 RPR Titer Reactive 1:1 (NONREACTIVE) H 12/20/19 07:50 COVID-19 (DREAD) Not detected (Not Detected) 12/19/19 07:55 Labs noted with RPR of 1:1. Assessment: 12/21/19 13:25 AOX3, in no acute respiratory distress. Full ROM, ambulating in the unit. Withdrawal symptoms. RPR 1:1, Pt states, he had syphillis 3years ago and was treated. Denies any lesions at oral or perineal area at this time. 12/21/19 13:26 Plan: continue detox.
[2019-12-21] MEDS: MAGNESIUM HYDROX 2400MG/30ML ORAL SUSPENSION 30 ML CUP PO PRN (16:45)
[2019-12-21] MEDS: MELATONIN 5 MG TABLETS PO SCH (23:11)
[2019-12-21] MEDS: THIAMINE HCL 100 MG TABLET (FP) PO SCH (23:11)
[2019-12-22] MEDS ORDERED: chlordiazePOXIDE HCL 10 MG CAPSULE PO PRN
[2019-12-22] MEDS: chlordiazePOXIDE HCL 10 MG CAPSULE PO SCH ×4 (06:16→22:40)
[2019-12-22] MEDS: PANTOPRAZOLE 20 MG TABLET PO SCH (07:00)
[2019-12-22] MEDS: PRENATAL VITAMINS W/ FOLIC ACID TABLET (FP) PO SCH (10:08)
[2019-12-22] MEDS: FLUTICASONE PROP 0.05% 16 GM NASAL SPRAY NS SCH ×2 (10:09→22:42)
[2019-12-22] MEDS: ARTIFICIAL TEARS (POLYVINYL ALCOHOL) OPTH DROPS OU SCH ×2 (10:09→22:47)
[2019-12-22] MEDS: NAPROXEN 500 MG TABLET PO PRN (10:10)
[2019-12-22] MEDS: NICOTINE 14 MG/24 HOURS TOPICAL PATCH TD SCH (10:12)
[2019-12-22] MEDS ORDERED: HYDROCORTISONE 0.5% TOPICAL OINTMENT TUBE TP SCH (11:19)
--- NOTE | 2019-12-22 11:24 | PN ---
S CIWA - CIWA Score Nausea/Vomitin-No Nausea/No Vomiting Muscle Tremors: 1-None Visible, but [place] Anxiety: 1-Mildly Anxious Agitation: 3 Paroxysmal Sweats: No Perspiration Orientation: 0-Oriented Tacttile Disturbances: 0-None Auditory Disturbances: 0-None Visual Disturbances: 1-Very Mild Sensitivity Headache: 0-None Present CIWA-Ar Total Score: 6 BHS Progress Note (SOAP) Subjective: 64 years old male was admitted on 12/19/19 for alcohol withdrawal sx management treating with librium detox regiment right lower wisdom tooth chip with 5/10 pain lidocaine mouth wash tid before meals chronic hemorrhoid internal hemorrhoid prolapsed no bleeding reports discomfort defecation hemorrhoid cream provided edge of nose itchy dry scaly areas noted on both edge of the nose hydrocortison ointment provided small hard stool abdomen soft no rebound tenderness bowel sounds present x 4 senna hs Objective: 12/22/19 11:37 Vital Signs - 24 hr 12/21/19 12/21/19 12/21/19 12:41 16:42 20:58 Temperature 96.9 F L 97.1 F L 97.7 F Pulse Rate 106 H 95 H 87 Respiratory 20 18 18 Rate Blood Pressure 134/82 137/87 130/76 O2 Sat by Pulse 99 97 Oximetry (%) 12/22/19 12/22/19 06:25 09:09 Temperature 97.3 F L 97.5 F L Pulse Rate 92 H 92 H Respiratory 18 20 Rate Blood Pressure 157/82 138/78 O2 Sat by Pulse 97 97 Oximetry (%) Laboratory Tests 12/19/19 12/20/19 12/20/19 07:55 07:50 07:50 WBC 6.7 RBC 4.46 Hgb 13.7 Hct 40.2 MCV 90.2 MCH 30.7 MCHC 34.1 RDW 15.4 Plt Count 221 MPV 8.2 Sodium Potassium Chloride Carbon Dioxide Anion Gap BUN Creatinine Est GFR (CKD-EPI)AfAm Est GFR (CKD-EPI)NonAf Random Glucose Calcium Total Bilirubin AST ALT Alkaline Phosphatase Total Protein Albumin Syphilis Serology Reactive A* RPR Titer COVID-19 (DREAD) Not detected 12/20/19 12/20/19 07:50 07:50 WBC RBC Hgb Hct MCV MCH MCHC RDW Plt Count MPV Sodium 143 Potassium 4.0 Chloride 109 H Carbon Dioxide 20 L Anion Gap 13 BUN 18.4 H Creatinine 1.1 Est GFR (CKD-EPI)AfAm 82.37 Est GFR (CKD-EPI)NonAf 71.07 Random Glucose 81 Calcium 8.4 L Total Bilirubin 0.9 AST 62 H ALT 78 H Alkaline Phosphatase 69 Total Protein 7.3 Albumin 3.8 Syphilis Serology RPR Titer Reactive 1:1 H COVID-19 (DREAD) 12/22/19 11:41 mr rae was treated with oral antibiotic due to allergic to penicillin in 2014 Assessment: 12/22/19 11:42 alcohol withdrawal Plan: librium regiment
[2019-12-22] MEDS: CARBAMIDE PEROXIDE 6.5% OTIC 15 ML BOTTLE AD SCH ×2 (14:19→22:43)
[2019-12-22] MEDS: LIDOCAINE VISCOUS 2% ORAL/TOP 20 ML UNIT-DOSE CUP MM SCH ×2 (14:19→17:16)
[2019-12-22] MEDS: MAGNESIUM HYDROX 2400MG/30ML ORAL SUSPENSION 30 ML CUP PO PRN (15:02)
[2019-12-22] MEDS: BENZOCAINE 28 GM HEMORRHOIDAL OINTMENT PR SCH ×3 (15:52→22:47)
[2019-12-22] MEDS: BACITRACIN 0.9 GM PACKET TP SCH (15:53)
[2019-12-22] MEDS: MAG HYDROX/AL HYDROX/SIMETH 30 ML UNIT-DOSE CUP PO PRN (18:22)
[2019-12-22] MEDS: MELATONIN 5 MG TABLETS PO SCH (22:40)
[2019-12-22] MEDS: THIAMINE HCL 100 MG TABLET (FP) PO SCH (22:40)
[2019-12-22] MEDS: SENNOSIDES 8.6MG TABLET (FP) PO SCH (22:40)
[2019-12-23] MEDS: LIDOCAINE VISCOUS 2% ORAL/TOP 20 ML UNIT-DOSE CUP MM SCH ×3 (06:12→17:55)
[2019-12-23] MEDS: PANTOPRAZOLE 20 MG TABLET PO SCH (06:12)
[2019-12-23] MEDS: chlordiazePOXIDE HCL 10 MG CAPSULE PO SCH ×2 (06:12→17:54)
[2019-12-23] MEDS: BENZOCAINE 28 GM HEMORRHOIDAL OINTMENT PR SCH ×4 (06:13→23:50)
[2019-12-23] MEDS: ARTIFICIAL TEARS (POLYVINYL ALCOHOL) OPTH DROPS OU SCH ×2 (09:28→23:49)
[2019-12-23] MEDS: PRENATAL VITAMINS W/ FOLIC ACID TABLET (FP) PO SCH (09:28)
[2019-12-23] MEDS: CARBAMIDE PEROXIDE 6.5% OTIC 15 ML BOTTLE AD SCH ×2 (09:29→23:49)
[2019-12-23] MEDS: BACITRACIN 0.9 GM PACKET TP SCH (09:29)
[2019-12-23] MEDS: FLUTICASONE PROP 0.05% 16 GM NASAL SPRAY NS SCH ×2 (09:30→23:49)
[2019-12-23] MEDS: NICOTINE 14 MG/24 HOURS TOPICAL PATCH TD SCH (09:30)
[2019-12-23] MEDS: NAPROXEN 500 MG TABLET PO PRN (09:32)
--- NOTE | 2019-12-23 09:48 | PN ---
S CIWA - CIWA Score Nausea/Vomitin-No Nausea/No Vomiting Muscle Tremors: 1-None Visible, but [place] Anxiety: 1-Mildly Anxious Agitation: 2 Paroxysmal Sweats: No Perspiration Orientation: 0-Oriented Tacttile Disturbances: 0-None Auditory Disturbances: 0-None Visual Disturbances: 0-None Headache: 0-None Present CIWA-Ar Total Score: 4 BHS Progress Note (SOAP) Subjective: 64 YEARS OLD MALE WAS ADMITTED ON 12/19/19 FOR ALCOHOL WITHDRAWAL SX MANAGEMENT TREATING WITH LIBRIUM DETOX REGIMENT FEELS BETTER TODAY LESS RESTLESSNESS "I GOT THINGS I NEEDED" MR CRANDALL WANTS TO GO TO [facility] FOR ALCOHOL RECOVERY WHERE "THEY GIVE ME WHAT I NEEDED" Objective: 12/23/19 09:49 Vital Signs - 24 hr 12/22/19 12/22/19 12/22/19 13:22 17:37 23:40 Temperature 97.3 F L 97.3 F L 97.1 F L Pulse Rate 97 H 72 77 Respiratory 16 18 18 Rate Blood Pressure 133/79 151/83 153/83 O2 Sat by Pulse 99 97 Oximetry (%) 12/23/19 12/23/19 06:08 08:51 Temperature 98.0 F 99.1 F Pulse Rate 78 98 H Respiratory 20 20 Rate Blood Pressure 137/93 145/89 O2 Sat by Pulse Oximetry (%) Laboratory Tests 12/19/19 12/20/19 12/20/19 07:55 07:50 07:50 WBC 6.7 RBC 4.46 Hgb 13.7 Hct 40.2 MCV 90.2 MCH 30.7 MCHC 34.1 RDW 15.4 Plt Count 221 MPV 8.2 Sodium Potassium Chloride Carbon Dioxide Anion Gap BUN Creatinine Est GFR (CKD-EPI)AfAm Est GFR (CKD-EPI)NonAf Random Glucose Calcium Total Bilirubin AST ALT Alkaline Phosphatase Total Protein Albumin Syphilis Serology Reactive A* RPR Titer COVID-19 (DREAD) Not detected 12/20/19 12/20/19 07:50 07:50 WBC RBC Hgb Hct MCV MCH MCHC RDW Plt Count MPV Sodium 143 Potassium 4.0 Chloride 109 H Carbon Dioxide 20 L Anion Gap 13 BUN 18.4 H Creatinine 1.1 Est GFR (CKD-EPI)AfAm 82.37 Est GFR (CKD-EPI)NonAf 71.07 Random Glucose 81 Calcium 8.4 L Total Bilirubin 0.9 AST 62 H ALT 78 H Alkaline Phosphatase 69 Total Protein 7.3 Albumin 3.8 Syphilis Serology RPR Titer Reactive 1:1 H COVID-19 (DREAD) 12/23/19 09:49 MR CRANDALL STATES THAT HE HAD SYPHILIS 2017 AND TREATED WITH ORAL ANTIBIOTIC DUE TO ALLERGIC TO PENICILLINS Assessment: 12/23/19 09:50 ALCOHOL WITHDRAWAL Plan: LIBRIUM REGIMENT
[2019-12-23] MEDS: MAGNESIUM HYDROX 2400MG/30ML ORAL SUSPENSION 30 ML CUP PO PRN (13:30)
[2019-12-23] MEDS: THIAMINE HCL 100 MG TABLET (FP) PO SCH (23:50)
[2019-12-23] MEDS: SENNOSIDES 8.6MG TABLET (FP) PO SCH (23:50)
[2019-12-23] MEDS: MELATONIN 5 MG TABLETS PO SCH (23:50)
[2019-12-24] MEDS ORDERED: chlordiazePOXIDE HCL 10 MG CAPSULE PO ONE (05:00)
[2019-12-24] MEDS: BENZOCAINE 28 GM HEMORRHOIDAL OINTMENT PR SCH ×2 (06:24→12:18)
[2019-12-24] MEDS: PANTOPRAZOLE 20 MG TABLET PO SCH (07:58)
[2019-12-24] MEDS: LIDOCAINE VISCOUS 2% ORAL/TOP 20 ML UNIT-DOSE CUP MM SCH ×2 (07:58→12:18)
--- NOTE | 2019-12-24 09:12 | DS ---
[facility] Detox Discharge Summary Admission Date: 12/19/19 Discharge Date: 12/24/19 - History Present History: Alcohol Dependence Additional Comments: 64 years old male was admitted on 12/19/19 for alcohol withdrawal sx management treated with librium detox regiment mr rea has completed the librium regiment and is tolerated well General Appearance: Yes: no Distress, mild Tremorous, less Anxious HEENTM: Yes: Nasal Congestion, Other (sensitivity to light) Respiratory: Yes: Lungs Clear, Normal Breath Sounds, No Respiratory Distress Neck: Yes: Within Normal Limits Breast: Yes: Breast Exam Deferred Cardiology: Yes: Tachycardia Abdominal: Yes: Normal Bowel Sounds, Protuberent, Hernia Genitourinary: Yes: Within Normal Limits Back: Yes: Normal Inspection Musculoskeletal: Yes: Back pain Extremities: Yes: Tremors 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: Yes: Normal Mood/Affect Integumentary: Yes: Warm Lymphatic: Yes: Within Normal Limits Pertinent Past History: time for discharge 35 minutes - Physical Exam Results Vital Signs: Vital Signs Temperature 97.8 F 12/23/19 20:39 Pulse Rate 89 12/23/19 20:39 Respiratory Rate 18 12/23/19 20:39 Blood Pressure 108/70 12/23/19 20:39 O2 Sat by Pulse Oximetry (%) 98 12/23/19 20:39 Pertinent Admission Physical Exam Findings: alcohol withdrawal Vital Signs - 24 hr 12/23/19 12/23/19 12/23/19 12:56 16:50 20:39 Temperature 98.1 F 97.9 F 97.8 F Pulse Rate 95 H 82 89 Respiratory 18 18 18 Rate Blood Pressure 135/80 139/87 108/70 O2 Sat by Pulse 98 98 98 Oximetry (%) Laboratory Tests 12/19/19 12/20/19 12/20/19 07:55 07:50 07:50 WBC 6.7 RBC 4.46 Hgb 13.7 Hct 40.2 MCV 90.2 MCH 30.7 MCHC 34.1 RDW 15.4 Plt Count 221 MPV 8.2 Sodium Potassium Chloride Carbon Dioxide Anion Gap BUN Creatinine Est GFR (CKD-EPI)AfAm Est GFR (CKD-EPI)NonAf Random Glucose Calcium Total Bilirubin AST ALT Alkaline Phosphatase Total Protein Albumin Syphilis Serology Reactive A* RPR Titer COVID-19 (DREAD) Not detected 12/20/19 12/20/19 07:50 07:50 WBC RBC Hgb Hct MCV MCH MCHC RDW Plt Count MPV Sodium 143 Potassium 4.0 Chloride 109 H Carbon Dioxide 20 L Anion Gap 13 BUN 18.4 H Creatinine 1.1 Est GFR (CKD-EPI)AfAm 82.37 Est GFR (CKD-EPI)NonAf 71.07 Random Glucose 81 Calcium 8.4 L Total Bilirubin 0.9 AST 62 H ALT 78 H Alkaline Phosphatase 69 Total Protein 7.3 Albumin 3.8 Syphilis Serology RPR Titer Reactive 1:1 H COVID-19 (DREAD) contacted syphilis 2017 treated - Treatment Hospital Course: Detox Protocol Followed, Detoxed Safely, Responded well, Discharged Condition Good, Rehab Referral Accepted Patient has Accepted a Rehab Referral to: [facility] - Medication Discharge Medications: Ambulatory Orders Fluticasone Propionate [Flonase Allergy Relief] 2 spray IN BID 05/04/19 Naproxen [Naprosyn] 500 mg PO BID PRN 05/04/19 Lansoprazole [Prevacid] 30 mg PO DAILY 06/12/19 Polyvinyl Alcohol [Artificial Tears] 2 ml OP BID 06/12/19 Loratadine [Claritin -] 10 mg PO PRN PRN 09/26/19 Hydrocortisone 2.5% Topical Cr [Anusol-Hc -] 1 applic TID 12/19/19 Mag Hydrox/Al Hydrox/Simeth [Mylanta Oral Suspension -] 30 ml PO PRN PRN 12/19/19 Phenyleph/Pramoxin/Glycr/W.pet [Preparation H Cream] 51 gm RC PRN PRN 12/19/19 - Diagnosis (1) Alcohol dependence with uncomplicated withdrawal Current Visit: Yes Status: Acute (2) Syphilis contact, treated Current Visit: Yes Status: Chronic (3) GERD (gastroesophageal reflux disease) Current Visit: Yes Status: Chronic Qualifiers: Esophagitis presence: without esophagitis Qualified Code(s): K21.9 - Gastro-esophageal reflux disease without esophagitis (4) History of hemorrhoids Current Visit: Yes Status: Chronic (5) History of positive PPD Current Visit: Yes Status: Resolved (6) Hypertension Current Visit: Yes Status: Chronic Qualifiers: Hypertension type: essential hypertension Qualified Code(s): I10 - Essential (primary) hypertension (7) Nicotine dependence Current Visit: Yes Status: Acute (8) Sinusitis chronic, ethmoidal Current Visit: Yes Status: Chronic (9) Allergic rhinitis Current Visit: Yes Status: Chronic Qualifiers: Allergic rhinitis trigger: unspecified Allergic rhinitis seasonality: unspecified Qualified Code(s): J30.9 - Allergic rhinitis, unspecified (10) Substance induced mood disorder Current Visit: Yes Status: Suspected (11) Positive PPD Current Visit: Yes Status: Resolved - AMA Did Patient Leave Against Medical Advice: No CIWA Score - CIWA Score Nausea/Vomitin-No Nausea/No Vomiting Muscle Tremors: None Anxiety: 1-Mildly Anxious Agitation: 1-Slight > Activity Paroxysmal Sweats: No Perspiration Orientation: 0-Oriented Tacttile Disturbances: 0-None Auditory Disturbances: 0-None Visual Disturbances: 0-None Headache: 0-None Present CIWA-Ar Total Score: 2
[2019-12-24 09:55] VITALS: BP 147/93; PULSE 91; TEMP 98.2
[2019-12-24] MEDS: CARBAMIDE PEROXIDE 6.5% OTIC 15 ML BOTTLE AD SCH (10:48)
[2019-12-24] MEDS: NICOTINE 14 MG/24 HOURS TOPICAL PATCH TD SCH (10:48)
[2019-12-24] MEDS: FLUTICASONE PROP 0.05% 16 GM NASAL SPRAY NS SCH (10:48)
[2019-12-24] MEDS: PRENATAL VITAMINS W/ FOLIC ACID TABLET (FP) PO SCH (10:48)
[2019-12-24] MEDS: ARTIFICIAL TEARS (POLYVINYL ALCOHOL) OPTH DROPS OU SCH (10:48)
[2019-12-24] MEDS: BACITRACIN 0.9 GM PACKET TP SCH (10:49)
[2019-12-24] MEDS: NAPROXEN 500 MG TABLET PO PRN (10:50)
== END 2019-12-24 13:30 | disposition other institution (70) | DRG 774 ==
LOC: YASAS 20:06 → Y3N 22:26
PROVIDERS: ADMIT Allergy & Immunology; ATTEND Allergy & Immunology
PROC: HZ2ZZZZ Detoxification Services for Substance Abuse Treatment (ICD-10-PCS; principal; 2019-12-19)
DX: F10.230 Alcohol dependence with withdrawal, uncomplicated (principal); F14.10 Cocaine abuse, uncomplicated; F17.210 Nicotine dependence, cigarettes, uncomplicated; F19.24 Other psychoactive substance dependence with psychoactive substance-induced mood disorder; I10 Essential (primary) hypertension; J30.9 Allergic rhinitis, unspecified; J32.2 Chronic ethmoidal sinusitis; K21.9 Gastro-esophageal reflux disease without esophagitis; K64.8 Other hemorrhoids; K45.8 Other specified abdominal hernia without obstruction or gangrene; M54.5 Low back pain; Z20.2 Contact with and (suspected) exposure to infections with a predominantly sexual mode of transmission; Z88.0 Allergy status to penicillin; Z88.7 Allergy status to serum and vaccine; Z91.018 Allergy to other foods; Z91.048 Other nonmedicinal substance allergy status
CPT/HCPCS: 36415; 80053; 85027; 86593; 86780; U0003

== ENCOUNTER 2019-12-24 14:16 | Inpatient (IN) | payer OTHER ==
[2019-12-24] MEDS ORDERED: IBUPROFEN 400 MG TABLET (FP) PO PRN (15:28)
[2019-12-24] MEDS ORDERED: NICOTINE POLACRILEX 2 MG GUM BUC PRN (15:28)
[2019-12-24] MEDS ORDERED: guaiFENesin 200 MG/10 ML 10 ML UNIT-DOSE CUPS PO PRN (15:28)
[2019-12-24] MEDS ORDERED: P-EPHED 60MG/TRIPROLIDI 2.5MG TABLET PO PRN (15:28)
[2019-12-24] MEDS ORDERED: MAGNESIUM CITRATE 300 ML BOTTLE PO PRN (15:28)
[2019-12-24] MEDS ORDERED: LOPERAMIDE HCL 2 MG CAPSULE PO PRN (15:28)
[2019-12-24] MEDS ORDERED: hydrOXYzine PAMOATE 25 MG CAPSULE (FP) PO PRN (15:32)
[2019-12-24] MEDS ORDERED: LORATADINE 10 MG TABLET PO PRN (15:35)
[2019-12-24] MEDS: MAG HYDROX/AL HYDROX/SIMETH 30 ML UNIT-DOSE CUP PO PRN (16:23)
[2019-12-24] MEDS ORDERED: hydrOXYzine PAMOATE 25 MG CAPSULE (FP) PO SCH (18:00)
[2019-12-24] MEDS ORDERED: PT OWN MED DRAWER 7, Y5N ONE ×2 (18:36→21:48)
[2019-12-24] MEDS: HYDROCORTISONE 2.5% TOPICAL CREAM 30 GM TUBE RC SCH (21:11)
[2019-12-24] MEDS: ARTIFICIAL TEARS (POLYVINYL ALCOHOL) OPTH DROPS OU SCH (21:11)
[2019-12-24] MEDS: MELATONIN 5 MG TABLETS PO SCH (21:12)
[2019-12-24] MEDS: FLUTICASONE PROP 0.05% 16 GM NASAL SPRAY NS SCH (21:12)
[2019-12-24] MEDS: THIAMINE HCL 100 MG TABLET (FP) PO SCH (21:12)
[2019-12-24] MEDS: CARBAMIDE PEROXIDE 6.5% OTIC 15 ML BOTTLE AU SCH (21:12)
[2019-12-24] MEDS: NAPROXEN 500 MG TABLET PO PRN (21:13)
[2019-12-25] MEDS: HYDROCORTISONE 2.5% TOPICAL CREAM 30 GM TUBE RC SCH ×3 (06:23→21:15)
[2019-12-25] MEDS: MENTHOL/PHENOL 1 EACH UD MM PRN (07:04)
[2019-12-25] MEDS: ACETAMINOPHEN 325 MG TABLET (FP) PO PRN (07:04)
[2019-12-25] MEDS ORDERED: NICOTINE 7 MG/24 HOURS TOPICAL PATCH TD SCH (10:00)
[2019-12-25] MEDS ORDERED: LORATADINE 10 MG TABLET PO SCH (10:00)
[2019-12-25] MEDS: PRENATAL VITAMINS W/ FOLIC ACID TABLET (FP) PO SCH (10:18)
[2019-12-25] MEDS: CARBAMIDE PEROXIDE 6.5% OTIC 15 ML BOTTLE AU SCH ×2 (10:21→21:16)
[2019-12-25] MEDS ORDERED: PT OWN MED DRAWER 7, Y5N ONE (10:21)
[2019-12-25] MEDS: FAMOTIDINE 20 MG TABLET PO SCH (10:22)
[2019-12-25] MEDS: FLUTICASONE PROP 0.05% 16 GM NASAL SPRAY NS SCH ×2 (10:22→21:16)
[2019-12-25] MEDS: ARTIFICIAL TEARS (POLYVINYL ALCOHOL) OPTH DROPS OU SCH ×2 (10:23→21:16)
[2019-12-25] MEDS: MAGNESIUM HYDROX 2400MG/30ML ORAL SUSPENSION 30 ML CUP PO PRN (16:35)
[2019-12-25] MEDS ORDERED: MAG HYDROX/ALH/SMC/DPHA/LIDO 240 ML MOUTHWASH MM SCH (18:00)
[2019-12-25] MEDS: CHLORHEXIDINE GLUCONATE 0.12% 15ML CUP MM SCH (21:16)
[2019-12-25] MEDS: THIAMINE HCL 100 MG TABLET (FP) PO SCH (21:16)
[2019-12-25] MEDS: MELATONIN 5 MG TABLETS PO SCH (21:16)
[2019-12-25] MEDS: NAPROXEN 500 MG TABLET PO PRN (21:18)
[2019-12-26] MEDS ORDERED: PT OWN MED DRAWER 7, Y5N ONE ×3 (02:53→21:54)
[2019-12-26] MEDS: MAGNESIUM HYDROX 2400MG/30ML ORAL SUSPENSION 30 ML CUP PO PRN (06:03)
[2019-12-26] MEDS: ACETAMINOPHEN 325 MG TABLET (FP) PO PRN (06:03)
[2019-12-26] MEDS: MENTHOL/PHENOL 1 EACH UD MM PRN (06:05)
[2019-12-26] MEDS: HYDROCORTISONE 2.5% TOPICAL CREAM 30 GM TUBE RC SCH ×3 (06:33→21:52)
[2019-12-26] MEDS: ARTIFICIAL TEARS (POLYVINYL ALCOHOL) OPTH DROPS OU SCH ×2 (10:12→21:51)
[2019-12-26] MEDS: FLUTICASONE PROP 0.05% 16 GM NASAL SPRAY NS SCH ×2 (10:13→21:52)
[2019-12-26] MEDS: CARBAMIDE PEROXIDE 6.5% OTIC 15 ML BOTTLE AU SCH ×2 (10:13→21:52)
[2019-12-26] MEDS: CHLORHEXIDINE GLUCONATE 0.12% 15ML CUP MM SCH (10:14)
[2019-12-26] MEDS: FAMOTIDINE 20 MG TABLET PO SCH (10:14)
[2019-12-26] MEDS: PRENATAL VITAMINS W/ FOLIC ACID TABLET (FP) PO SCH (10:15)
[2019-12-26] MEDS ORDERED: BENZOCAINE 20 % GEL TUBE MM PRN (12:46)
--- NOTE | 2019-12-26 12:51 | HP ---
[facility] Rehab Assess/Revision - Admission History Admitted to Rehab from: [facility] Date of Admission to Rehab: 12/24/19 - Vital signs Vital Signs: Vital Signs Period Temp Pulse Resp BP Sys/Laurent Pulse Ox Last 24 Hr 97.1 F-98 F 76 18 161/87 95-98 - Findings Detox History & Physical reviewed: Yes Concur with findings: Yes Comments/Additional Findings: Pt completed detox on on 12/24/19 and referred to rehab. Inpatient Rehab Admission - Rehab Decision to Admit Inpatient rehab admission?: Yes - Initial Determination Are CD services needed?: Yes Free of communicable disease: Yes Not in need of hospitalization: Yes - Rehab Admission Criteria Previous failed treatment: Yes Poor recovery environment: Yes Comorbidities: Yes Lacks judgement: Yes Patient is meeting Inpatient Rehab admission criteria:: Yes
[2019-12-26] MEDS: MAG HYDROX/AL HYDROX/SIMETH 30 ML UNIT-DOSE CUP PO PRN ×2 (15:18→21:56)
[2019-12-26] MEDS: SENNOSIDES 8.6MG TABLET (FP) PO SCH (21:54)
[2019-12-26] MEDS: THIAMINE HCL 100 MG TABLET (FP) PO SCH (21:54)
[2019-12-26] MEDS: MELATONIN 5 MG TABLETS PO SCH (21:55)
[2019-12-26] MEDS: LIDOCAINE VISCOUS 2% ORAL/TOP 20 ML UNIT-DOSE CUP MM PRN (21:56)
[2019-12-27] MEDS: HYDROCORTISONE 2.5% TOPICAL CREAM 30 GM TUBE RC SCH ×3 (05:50→21:59)
[2019-12-27] MEDS: FAMOTIDINE 20 MG TABLET PO SCH (05:50)
[2019-12-27] MEDS: ACETAMINOPHEN 325 MG TABLET (FP) PO PRN (07:24)
[2019-12-27] MEDS: MENTHOL/PHENOL 1 EACH UD MM PRN (07:25)
[2019-12-27] MEDS ORDERED: PT OWN MED DRAWER 7, Y5N ONE ×6 (08:20→22:08)
[2019-12-27] MEDS: SENNOSIDES 8.6MG TABLET (FP) PO SCH ×2 (09:48→21:59)
[2019-12-27] MEDS: PRENATAL VITAMINS W/ FOLIC ACID TABLET (FP) PO SCH (09:48)
[2019-12-27] MEDS: ARTIFICIAL TEARS (POLYVINYL ALCOHOL) OPTH DROPS OU SCH ×2 (09:49→21:59)
[2019-12-27] MEDS: FLUTICASONE PROP 0.05% 16 GM NASAL SPRAY NS SCH ×2 (09:49→21:59)
[2019-12-27] MEDS: CARBAMIDE PEROXIDE 6.5% OTIC 15 ML BOTTLE AU SCH ×2 (09:49→21:59)
[2019-12-27] MEDS: LIDOCAINE VISCOUS 2% ORAL/TOP 20 ML UNIT-DOSE CUP MM PRN (09:52)
[2019-12-27] MEDS: MAG HYDROX/AL HYDROX/SIMETH 30 ML UNIT-DOSE CUP PO PRN (13:49)
[2019-12-27] MEDS: NAPROXEN 500 MG TABLET PO PRN (18:28)
[2019-12-27] MEDS: MELATONIN 5 MG TABLETS PO SCH (21:59)
[2019-12-27] MEDS: THIAMINE HCL 100 MG TABLET (FP) PO SCH (21:59)
[2019-12-28] MEDS: MENTHOL/PHENOL 1 EACH UD MM PRN (06:07)
[2019-12-28] MEDS: ACETAMINOPHEN 325 MG TABLET (FP) PO PRN (06:07)
[2019-12-28] MEDS: FAMOTIDINE 20 MG TABLET PO SCH (06:08)
[2019-12-28] MEDS: HYDROCORTISONE 2.5% TOPICAL CREAM 30 GM TUBE RC SCH ×3 (06:09→21:19)
[2019-12-28] MEDS: PRENATAL VITAMINS W/ FOLIC ACID TABLET (FP) PO SCH (09:41)
[2019-12-28] MEDS: SENNOSIDES 8.6MG TABLET (FP) PO SCH ×2 (09:41→21:19)
[2019-12-28] MEDS: FLUTICASONE PROP 0.05% 16 GM NASAL SPRAY NS SCH ×2 (09:42→21:18)
[2019-12-28] MEDS: ARTIFICIAL TEARS (POLYVINYL ALCOHOL) OPTH DROPS OU SCH ×2 (09:42→21:19)
[2019-12-28] MEDS: CARBAMIDE PEROXIDE 6.5% OTIC 15 ML BOTTLE AU SCH ×2 (09:43→21:20)
[2019-12-28] MEDS: LIDOCAINE VISCOUS 2% ORAL/TOP 20 ML UNIT-DOSE CUP MM PRN ×2 (09:44→21:19)
[2019-12-28] MEDS ORDERED: PT OWN MED DRAWER 7, Y5N ONE (19:42)
[2019-12-28] MEDS: THIAMINE HCL 100 MG TABLET (FP) PO SCH (21:17)
[2019-12-28] MEDS: NAPROXEN 500 MG TABLET PO PRN (21:18)
[2019-12-28] MEDS: MAG HYDROX/AL HYDROX/SIMETH 30 ML UNIT-DOSE CUP PO PRN (21:19)
[2019-12-28] MEDS: MELATONIN 5 MG TABLETS PO SCH (21:19)
[2019-12-29] MEDS: FAMOTIDINE 20 MG TABLET PO SCH (05:48)
[2019-12-29] MEDS: HYDROCORTISONE 2.5% TOPICAL CREAM 30 GM TUBE RC SCH ×3 (05:48→21:40)
[2019-12-29] MEDS ORDERED: PT OWN MED DRAWER 7, Y5N ONE ×4 (09:02→21:52)
[2019-12-29] MEDS: PRENATAL VITAMINS W/ FOLIC ACID TABLET (FP) PO SCH (09:50)
[2019-12-29] MEDS: SENNOSIDES 8.6MG TABLET (FP) PO SCH ×3 (09:51→21:48)
[2019-12-29] MEDS: FLUTICASONE PROP 0.05% 16 GM NASAL SPRAY NS SCH ×2 (09:51→21:40)
[2019-12-29] MEDS: CARBAMIDE PEROXIDE 6.5% OTIC 15 ML BOTTLE AU SCH ×2 (09:52→21:40)
[2019-12-29] MEDS: ARTIFICIAL TEARS (POLYVINYL ALCOHOL) OPTH DROPS OU SCH ×2 (09:52→21:40)
[2019-12-29] MEDS: MAGNESIUM HYDROX 2400MG/30ML ORAL SUSPENSION 30 ML CUP PO PRN (09:52)
[2019-12-29] MEDS: LIDOCAINE VISCOUS 2% ORAL/TOP 20 ML UNIT-DOSE CUP MM PRN ×2 (09:53→21:41)
[2019-12-29] MEDS: NAPROXEN 500 MG TABLET PO PRN (09:54)
[2019-12-29] MEDS: MENTHOL/PHENOL 1 EACH UD MM PRN (09:54)
[2019-12-29] MEDS: MELATONIN 5 MG TABLETS PO SCH (21:41)
[2019-12-29] MEDS: THIAMINE HCL 100 MG TABLET (FP) PO SCH (21:41)
[2019-12-30] MEDS: MENTHOL/PHENOL 1 EACH UD MM PRN (05:59)
[2019-12-30] MEDS: FAMOTIDINE 20 MG TABLET PO SCH (05:59)
[2019-12-30] MEDS: ACETAMINOPHEN 325 MG TABLET (FP) PO PRN (05:59)
[2019-12-30] MEDS: HYDROCORTISONE 2.5% TOPICAL CREAM 30 GM TUBE RC SCH ×3 (05:59→21:20)
[2019-12-30] MEDS: PRENATAL VITAMINS W/ FOLIC ACID TABLET (FP) PO SCH (10:03)
[2019-12-30] MEDS: SENNOSIDES 8.6MG TABLET (FP) PO SCH ×2 (10:04→21:21)
[2019-12-30] MEDS: ARTIFICIAL TEARS (POLYVINYL ALCOHOL) OPTH DROPS OU SCH ×3 (10:04→21:19)
[2019-12-30] MEDS ORDERED: PT OWN MED DRAWER 7, Y5N ONE ×3 (10:06→20:36)
[2019-12-30] MEDS: FLUTICASONE PROP 0.05% 16 GM NASAL SPRAY NS SCH ×2 (10:06→21:21)
[2019-12-30] MEDS: CARBAMIDE PEROXIDE 6.5% OTIC 15 ML BOTTLE AU SCH ×2 (10:07→21:21)
[2019-12-30] MEDS: LIDOCAINE VISCOUS 2% ORAL/TOP 20 ML UNIT-DOSE CUP MM PRN (10:08)
[2019-12-30] MEDS: MAGNESIUM HYDROX 2400MG/30ML ORAL SUSPENSION 30 ML CUP PO PRN (13:31)
[2019-12-30] MEDS: LIDOCAINE 5% TOPICAL PATCH TP SCH (15:36)
[2019-12-30] MEDS: NAPROXEN 500 MG TABLET PO PRN (21:16)
[2019-12-30] MEDS: MELATONIN 5 MG TABLETS PO SCH (21:21)
[2019-12-30] MEDS: THIAMINE HCL 100 MG TABLET (FP) PO SCH (21:21)
[2019-12-30 21:29] VITALS: TEMP 97.5
[2019-12-30] MEDS ORDERED: LIDOCAINE PATCH REMOVAL MC SCH (22:00)
[2019-12-31] MEDS: MENTHOL/PHENOL 1 EACH UD MM PRN (06:41)
[2019-12-31] MEDS: ARTIFICIAL TEARS (POLYVINYL ALCOHOL) OPTH DROPS OU SCH (06:43)
[2019-12-31] MEDS: HYDROCORTISONE 2.5% TOPICAL CREAM 30 GM TUBE RC SCH (06:43)
[2019-12-31] MEDS: ACETAMINOPHEN 325 MG TABLET (FP) PO PRN (06:44)
[2019-12-31] MEDS: MAGNESIUM HYDROX 2400MG/30ML ORAL SUSPENSION 30 ML CUP PO PRN (06:44)
[2019-12-31] MEDS: FAMOTIDINE 20 MG TABLET PO SCH (06:44)
[2019-12-31 06:53] VITALS: BP 125/75; PULSE 89
[2019-12-31] MEDS ORDERED: PT OWN MED DRAWER 7, Y5N ONE ×2 (09:01→10:50)
[2019-12-31] MEDS ORDERED: LIDOCAINE VISCOUS 2% ORAL/TOP 20 ML UNIT-DOSE CUP MM PRN (09:23)
[2019-12-31] MEDS ORDERED: SODIUM CHLORIDE NASAL SPRAY 44 ML BOTTLE NS PRN (09:24)
--- NOTE | 2019-12-31 09:25 | PN ---
[facility] Progress Note Note: Pt reports he spoke with his counselor and will be staying the full course of rehab admission. Pt states he is not discharging today. Vital Signs - 24 hr 12/30/19 12/30/19 12/31/19 14:28 20:31 06:40 Temperature 97.5 F L 97.5 F L Pulse Rate 89 Respiratory 18 Rate Blood Pressure 125/75 O2 Sat by Pulse 96 98 98 Oximetry (%) Alert o x 3 nad, no resp difficulty oob ambulating with steady gait Rehab pt D/w nurses on the unit re-d/c plan. Ms Garza,RN to follow up with pt's counselor on re-information on final discharge plans.
[2019-12-31] MEDS: SENNOSIDES 8.6MG TABLET (FP) PO SCH (10:21)
[2019-12-31] MEDS: LIDOCAINE 5% TOPICAL PATCH TP SCH (10:21)
[2019-12-31] MEDS: PRENATAL VITAMINS W/ FOLIC ACID TABLET (FP) PO SCH (10:21)
[2019-12-31] MEDS: CARBAMIDE PEROXIDE 6.5% OTIC 15 ML BOTTLE AU SCH (10:22)
[2019-12-31] MEDS: FLUTICASONE PROP 0.05% 16 GM NASAL SPRAY NS SCH (10:22)
--- NOTE | 2019-12-31 10:53 | DS ---
[facility] Rehab Discharge Summary - [facility] Rehab Discharge Summary Admission Date: 12/24/19 Discharge Date: 12/31/19 - History Present History: Alcohol dependence, Cannabis dependence, Cocaine dependence Pertinent Past History: GERD HTN(no med) Umbilical Hernia Obesity Chronic Back Pain Allergic Rhinitis Chronic sinusitis Dry Eyes Hx syphilis - Discharge Physical Exam Vital Signs: Vital Signs Temperature 97.5 F L 12/31/19 06:40 Pulse Rate 89 12/31/19 06:40 Respiratory Rate 18 12/31/19 06:40 Blood Pressure 125/75 12/31/19 06:40 O2 Sat by Pulse Oximetry (%) 98 12/31/19 06:40 General:WDWN male Resp:nad; oxi 98% Mental:alert o x 3, coherent MSK: oob ambulating with steady gait; Active FROM, all limbs extremities/skin:no edema; skin intact. - Treatment Discharge Condition: Discharge condition good, Rehabilitated safely, Responded well, Outpatient referral accepted Hospital Course: Pt accepted CD aftercare to [facility] - Medication Discharge Medications: Ambulatory Orders Fluticasone Propionate [Flonase Allergy Relief] 2 spray IN BID 05/04/19 Naproxen [Naprosyn] 500 mg PO BID PRN 05/04/19 Lansoprazole [Prevacid] 30 mg PO DAILY 06/12/19 Polyvinyl Alcohol [Artificial Tears] 2 ml OP BID 06/12/19 Loratadine [Claritin -] 10 mg PO PRN PRN 09/26/19 Hydrocortisone 2.5% Topical Cr [Anusol-Hc -] 1 applic TID 12/19/19 Mag Hydrox/Al Hydrox/Simeth [Mylanta Oral Suspension -] 30 ml PO PRN PRN 12/19/19 Phenyleph/Pramoxin/Glycr/W.pet [Preparation H Cream] 51 gm RC PRN PRN 12/19/19 Famotidine [Pepcid -] 20 mg PO DAILY@0600 #14 tablet 12/30/19 Polyvinyl Alcohol [Artificial Tears] 1 drop OU TID #1 bottle 12/30/19 - Medication-Assisted Treatment (MAT) Medication-Assisted Treatment (MAT): No - Discharge Instructions Diet, activity, other medical instructions: Diet:SAMRA Activity: oob ad fe Other medical instructions:follow up with CD aftercare as scheduled follow up with primary care for medical management as recommended and needed. - Diagnosis (1) Alcohol use disorder Status: Chronic (2) Cocaine dependence Status: Chronic Qualifiers: Substance use status: uncomplicated Qualified Code(s): F14.20 - Cocaine dependence, uncomplicated (3) Allergic rhinitis Status: Chronic Qualifiers: Allergic rhinitis trigger: unspecified Allergic rhinitis seasonality: unspecified Qualified Code(s): J30.9 - Allergic rhinitis, unspecified (4) Back pain Status: Chronic Qualifiers: Back pain location: low back pain Back pain laterality: unspecified (5) Dry eye Status: Chronic (6) GERD (gastroesophageal reflux disease) Status: Chronic Qualifiers: Esophagitis presence: without esophagitis Qualified Code(s): K21.9 - Gastro-esophageal reflux disease without esophagitis (7) Obesity (BMI 30.0-34.9) Status: Chronic - Follow-up Referral Minutes to complete discharge: 20 - AMA Did Patient Leave Against Medical Advice: No
== END 2019-12-31 11:56 | disposition home or self-care (01) | DRG 772 ==
LOC: YASAS 14:16 → Y3W 14:19
PROVIDERS: ADMIT Allergy & Immunology; ATTEND Allergy & Immunology
PROC: HZ42ZZZ Group Counseling for Substance Abuse Treatment, Cognitive-Behavioral (ICD-10-PCS; principal; 2019-12-24)
DX: F10.20 Alcohol dependence, uncomplicated (principal); F14.20 Cocaine dependence, uncomplicated; F12.20 Cannabis dependence, uncomplicated; F17.210 Nicotine dependence, cigarettes, uncomplicated; I10 Essential (primary) hypertension; K21.9 Gastro-esophageal reflux disease without esophagitis; K42.9 Umbilical hernia without obstruction or gangrene; J30.9 Allergic rhinitis, unspecified; J32.9 Chronic sinusitis, unspecified; M54.89 Other dorsalgia; G89.29 Other chronic pain; H04.129 Dry eye syndrome of unspecified lacrimal gland; Z86.19 Personal history of other infectious and parasitic diseases; Z88.0 Allergy status to penicillin; Z91.018 Allergy to other foods; Z88.7 Allergy status to serum and vaccine

== ENCOUNTER 2020-02-10 14:44 | Inpatient (IN) | payer OTHER ==
--- OUTSIDE RECORDS SUMMARY | 2020-02-10 14:53 | XMS ---
:1955 Author Organization [facility] Care Team Providers Name Role Phone [id number], [id number] Unavailable Unavailable KAI BOWENS MD Unavailable Unavailable MD JULIOCESAR Unavailable Unavailable Re-disclosure Warning The records that you are about to access may contain information from federally- assisted alcohol or drug abuse programs. If such information is present, then the following federally mandated warning applies: This information has been disclosed to you from records protected by federal confidentiality rules (42 CFR part 2). The federal rules prohibit you from making any further disclosure of this information unless further disclosure is expressly permitted by the written consent of the person to whom it pertains or as otherwise permitted by 42 CFR part 2. A general authorization for the release of medical or other information is NOT sufficient for this purpose. The Federal rules restrict any use of the information to criminally investigate or prosecute any alcohol or drug abuse patient.The records that you are about to access may contain highly sensitive health information, the redisclosure of which is protected by Article 27-F of the [facility] Public Health law. If you continue you may haveaccess to information: Regarding HIV / AIDS; Provided by facilities licensed or operated by the [facility] Office of Mental Health; or Provided by the [facility] Office for People With Developmental Disabilities. If such information is present, then the following [facility] mandated warning applies: This information has been disclosed to you from confidential records which are protected by state law. State law prohibits you from making any further disclosure of this information without the specific written consent of the person to whom it pertains, or as otherwise permitted by law. Any unauthorized further disclosure in violation of state law may result in a fine or group home sentence or both. A general authorization for the release of medical or other information is NOT sufficient authorization for further disclosure. Encounters Encounter Providers Location Date Indications Data Source(s ) Inpatient Attender: MARIBEL DAVIDV-1D 05/08/2019 [facility] 07:02:00 PM EST Hospital : [facility] 05/28/2019 10:29:00 PM EST Patient discharged. Attender: 05/08/2019 [facility] [id number] 07:02:00 PM [id number] 05/08/2019 [facility] 06:24:00 PM EST - Hospita l 05/08/2019 07:37:00 PM EST Patient discharged. Attender: [id number] 2019 06:24:00 [id number] Hospital Medications Medication Brand Start Product Dose Route Administrative Pharmacy [facility] Indications Reaction Description Data Name Date Form Instructions Instructions Source(s) Docusate Colace ORAL complet Colace - 100 [facility] Sodium 100 - 100 2019 Capsu ed MG ORAL [facility] Oral MG 12:00: le Capsule, Hospit al Capsule ORAL 00 AM Liquid [Colace] Capsul EST Filled e, Liquid Filled Famotidine Pepcid ORAL complet Pepcid - 20 [facility] 20 MG Oral - 20 2019 Table ed MG ORAL [facility] Tablet MG 12:00: t Tablet Hospital [Pepcid] ORAL 00 AM Tablet EST Insurance Providers Payer name Policy type Policy ID Covered Covered libertarian's Policy P ralph / Coverage libertarian ID relationship to Naik Inf ormation type naik [employer] [id number] SP [id number] [employer] [id number] SP [id number] SELF PAY 0 Self 0 MEDICAID INP [id number] Self [id number] [facility] [id number] Self [id number] [facility] [id number] SP [id number] E [employer] BS [id number] [id number] [id number] Results ID Date Data Source [id number] 12/19/2019 07:55:00 AM EDT [facility] Name Value Range Interpretation Description Data Sup porting Code Source(s) Document(s ) SARS [facility] coronavirus 2 RNA This lab was ordered by [facility] Inter and reported by [facility]. ID Date Data Source [id number] 11/12/2019 11:10:00 AM EDT [facility] Name Value Range Interpretation Description Data Sup porting Code Source(s) Document(s ) SARS [facility] coronavirus 2 RNA This lab was ordered by [facility] and reported by [facility]. ID Date Data Source [id number] 09/26/2019 11:20:00 AM EDT [facility] Name Value Range Interpretation Description Data Sup porting Code Source(s) Document(s ) SARS [facility] CORONAVIRUS 2 RNA This lab was ordered by [facility] and reported by [facility]. Procedure Vital Signs ID Date Data Source UNK Name Value Range Interpretation Code Description Data Source(s) Body weight 209 lbs 209 lbs [facility] Diastolic blood 88 mmHg 88 mmHg [facility] Systolic blood 153 mmHg 153 mmHg [facility] Respiratory rate 18 bpm 18 bpm [facility] Heart rate 94 bpm 94 bpm [facility] Body temperature 95.9 Fahrenheit 95.9 Fahrenhei t [facility] Diastolic blood 86 mmHg 86 mmHg [facility] Systolic blood 134 mmHg 134 mmHg [facility] Respiratory rate 18 bpm 18 bpm [facility] Heart rate 87 bpm 87 bpm [facility] Body temperature 97 Fahrenheit 97 Fahrenheit [facility] Diastolic blood 82 mmHg 82 mmHg [facility] Systolic blood 126 mmHg 126 mmHg [facility] Respiratory rate 18 bpm 18 bpm [facility] Heart rate 90 bpm 90 bpm [facility] Diastolic blood 83 mmHg 83 mmHg [facility] Systolic blood 137 mmHg 137 mmHg [facility] Respiratory rate 18 bpm 18 bpm [facility] Heart rate 87 bpm 87 bpm [facility] Diastolic blood 80 mmHg 80 mmHg [facility] Systolic blood 136 mmHg 136 mmHg [facility] Respiratory rate 16 bpm 16 bpm [facility] Heart rate 89 bpm 89 bpm [facility] Body temperature 96.3 Fahrenheit 96.3 Fahrenhei t [facility] Body weight 229 lbs 229 lbs [facility] Diastolic blood 72 mmHg 72 mmHg [facility] Systolic blood 146 mmHg 146 mmHg [facility] Respiratory rate 18 bpm 18 bpm [facility] Heart rate 95 bpm 95 bpm [facility] Diastolic blood 76 mmHg 76 mmHg [facility] Systolic blood 132 mmHg 132 mmHg [facility] Diastolic blood 77 mmHg 77 mmHg [facility] Systolic blood 156 mmHg 156 mmHg [facility] Respiratory rate 18 bpm 18 bpm [facility] Heart rate 91 bpm 91 bpm [facility] Body temperature 97.4 Fahrenheit 97.4 Fahrenh t [facility] Diastolic blood 93 mmHg 93 mmHg [facility] Systolic blood 149 mmHg 149 mmHg [facility] Respiratory rate 18 bpm 18 bpm [facility] Heart rate 91 bpm 91 bpm [facility] Body temperature 96.1 Fahrenheit 96.1 Fahrenhei t [facility] Diastolic blood 92 mmHg 92 mmHg [facility] Systolic blood 138 mmHg 138 mmHg [facility] Respiratory rate 18 bpm 18 bpm [facility] Heart rate 95 bpm 95 bpm [facility] Body temperature 97.4 Fahrenheit 97.4 Fahrenh t [facility] Body weight 227 lbs 227 lbs [facility] Diastolic blood 96 mmHg 96 mmHg [facility] Systolic blood 157 mmHg 157 mmHg [facility] Respiratory rate 18 bpm 18 bpm [facility] Heart rate 91 bpm 91 bpm [facility] Diastolic blood 75 mmHg 75 mmHg [facility] Systolic blood 143 mmHg 143 mmHg [facility] Respiratory rate 20 bpm 20 bpm [facility] Heart rate 86 bpm 86 bpm [facility] Body temperature 98.1 Fahrenheit 98.1 Fahrenh t [facility] ID Date Data Source [id number] 05/28/2019 10:30:03 PM EST [facility] Name Value Range Interpretation Code Description Data Source(s) Body weight Measured 209 lb 209 lb [facility] Body weight Measured 229 lb 229 lb [facility] Body weight Measured 227 lb 227 lb [facility] Body weight Measured 220 lb 220 lb [facility] ID Date Data Source [id number] 05/08/2019 06:24:59 PM EST [facility] Name Value Range Interpretation Code Description Data Source(s) Body weight Measured 220 lb 220 lb [facility]
--- NOTE | 2020-02-10 15:27 | BHS.RME ---
Substance Use & Tx History - Substance Use History Alcohol Substance amount: 2 x 1/5 Vodka Frequency of use: Daily Substance route: Oral Date of Last Use: 02/10/20 Cocaine- Powder Substance amount: $100 Frequency of use: Once a month Substance route: Inhalation (ex: sniffing or snorting) Date of Last Use: 11/12/19 Marijuana/Hashish Substance amount: one bag Substance route: Smoking Date of Last Use: 08/14/19 - Last Treatment Date of last treatment: november to dec detox and rehab here Physical/Psych/Mental Status - Behavior General Behavior: Increased activity (restlessness, agitation) Eye Contact: Normal - Cooperativeness Cooperativeness: Cooperative - Thinking Thought Processes: Tight Thought content: Future oriented - Physical Health Problems Is patient presently having any pain?: No Does patient presently have any injuries (include location): No Does patient currently have a fever: No CIWA Nausea/Vomitin-No Nausea/No Vomiting Muscle Tremors: 3 Anxiety: 3 Agitation: 3 Paroxysmal Sweats: No Perspiration Orientation: 2-Disoriented Date<2 days Tacttile Disturbances: 0-None Auditory Disturbances: 0-None Visual Disturbances: 1-Very Mild Sensitivity Headache: 0-None Present CIWA-Ar Total Score: 12
[2020-02-10 16:26] VITALS: BMI 29.7
--- NOTE | 2020-02-10 18:10 | HP ---
CIWA Score Nausea/Vomitin-No Nausea/No Vomiting Muscle Tremors: 3 Anxiety: 4-Mod. Anxious/Guarded Agitation: 4-Moderately Restless Paroxysmal Sweats: 1-Minimal Palms Moist Orientation: 1-Uncertain about Date Tacttile Disturbances: 0-None Auditory Disturbances: 0-None Visual Disturbances: 2-Mild Sensitivity Headache: 0-None Present CIWA-Ar Total Score: 15 - Admission Criteria OASAS Guidelines: Admission for Medically Managed Detox: Requires at least one of the followin. CIWA greater than 12 2. Seizures within the past 24 hours 3. Delirium tremens within the past 24 hours 4. Hallucinations within the past 24 hours 5. Acute intervention needed for co occurring medical disorder 6. Acute intervention needed for co occurring psychiatric disorder 7. Severe withdrawal that cannot be handled at a lower level of care (continued vomiting, continued diarrhea, abnormal vital signs) requiring intravenous medication and/or fluids 8. Patient presents the following: CIWA greater than 12 Admission Criteria Met: Admission criteria met Admitting History and Physical - Smoking History Smoking history: Current every day smoker Have you smoked in the past 12 months: Yes Aproximately how many cigarettes per day: 5 - Alcohol/Substance Use Hx Alcohol Use: Yes Admission ROS [facility] Chief Complaint: "Here because drinking too much and I need to stop" Allergies/Adverse Reactions: Allergies Allergy/AdvReac Type Severity Reaction Status Date / Time tuberculin, purified protein Allergy Severe Rash Verified 02/10/20 18:39 deriva [Tuberculin,Purif.Prot.Deriv.] tomato [Tomato] Allergy Mild Itching Verified 02/10/20 18:39 Penicillins Allergy Unknown Difficulty Verified 02/10/20 18:39 Breathing History of Present Illness: 64 yo presents w/ alcohol withdrawal symptoms seeking admission to detox. Utox: Negative MARITZA 0.096 Denies seizures, blackouts, overdoses. Alcohol use began at age 19. Currently drinks 2/5ths vodka daily. Nicotine use began at age 19. Currently smokes 5/day. Refuses patch. PMHx: Abd hernia, Hemorrhoids. Sneezing (nasal allergies). Swelling (L) leg. PPD+ MHHx: Denies depression or MH problems. Denies thoughts of harming self or others. SHx: Homeless. Unemployed. Denies legal issues. Search Terms: [place], 1955 Search Date: 02/10/2020 18:09:27 PM The Drug Utilization Report below displays all of the controlled substance prescriptions, if any, that your patient has filled in the last twelve months. The information displayed on this report is compiled from pharmacy submissions to the Department, and accurately reflects the information as submitted by the pharmacies. This report was requested by: Smiley Lassiter | Reference #: [id number] There are no results for the search terms that you entered. Exam Limitations: No Limitations - Ebola screening Have you traveled outside of the country in the last 21 days: No (Denies COVID exposure) Have you had contact with anyone from an Ebola affected area: No Have you been sick,other than usual withdrawal symptoms: No Do you have a fever: No - Review of Systems EENT: reports: Blurred Vision, Other (sensitve eyes- wears dark glasses) Respiratory: reports: Other (sneezing) Cardiac: reports: No Symptoms Reported GI: reports: Other (Umbilical hernia) : reports: No Symptoms Reported Musculoskeletal: reports: Other (Swelling left leg) Integumentary: reports: No Symptoms Reported Neuro: reports: Headache, Tremors Endocrine: reports: Increased Thirst Hematology: reports: No Symptoms Reported Psychiatric: reports: Agitated, Anxious Patient History - Patient Medical History Hx Anemia: No Hx Asthma: No Hx Chronic Obstructive Pulmonary Disease (COPD): No Hx Cancer: No Hx Cardiac Disorders: No Hx Congestive Heart Failure: No Hx Hypertension: No Hx Hypercholesterolemia: No Hx Pacemaker: No HX Cerebrovascular Accident: No Hx Seizures: No Hx Dementia: No Hx Diabetes: No Hx Gastrointestinal Disorders: Yes (GERD) Hx Liver Disease: No Hx Genitourinary Disorders: No Hx Sexually Transmitted Disorders: No Hx Renal Disease (ESRD): No Hx Thyroid Disease: No Hx Human Immunodeficiency Virus (HIV): No Hx Hepatitis C: No Hx Depression: No Hx Suicide Attempt: No Hx Bipolar Disorder: No Hx Schizophrenia: No - Patient Surgical History Past Surgical History: No Hx Neurologic Surgery: No Hx Cataract Extraction: No Hx Cardiac Surgery: No Hx Lung Surgery: No Hx Breast Surgery: No Hx Breast Biopsy: No Hx Abdominal Surgery: No Hx Appendectomy: No Hx Cholecystectomy: No Hx Genitourinary Surgery: No Hx Section: (n/a) Hx Orthopedic Surgery: No Anesthesia Reaction: No - PPD History Previous Implant?: Yes Documented Results: Positive w/proof Implanted On Prior [facility] Admission?: Yes Date: 07/22/19 Results: NEG CXR PPD to be Administered?: No - Smoking Cessation Smoking history: Current every day smoker Have you smoked in the past 12 months: Yes Aproximately how many cigarettes per day: 5 Cigars Per Day: 0 Hx Chewing Tobacco Use: No Initiated information on smoking cessation: Yes 'Breaking Loose' booklet given: 02/10/20 - Substance & Tx. History Hx Alcohol Use: Yes Hx Substance Use: Yes Substance Use Type: Alcohol, Cocaine Hx Substance Use Treatment: Yes (detox, rehabs) Admission Physical Exam [facility] - Vital Signs Vital Signs: Vital Signs - 24 hr 02/10/20 16:24 Temperature 98.4 F Pulse Rate 104 H Respiratory 12 Rate Blood Pressure 157/85 - Physical General Appearance: Yes: Nourished, Mild Distress, Intoxicated, Tremorous, Irritable, Sweating (Increased facial moisture), Anxious HEENTM: Yes: EOMI, Hearing grossly Normal, Normal ENT Inspection, GLEN, Pharynx Normal Respiratory: Yes: Lungs Clear, Normal Breath Sounds, No Respiratory Distress Neck: Yes: No masses,lesions,Nodules, Supple, Thyroid tenderness Cardiology: Yes: Regular Rhythm, Regular Rate, S1, S2 Abdominal: Yes: Non Tender, Soft, Protuberent, Other (Bulging hernia lower (L) to mid abd area, soft, reducible, non-tender, approc 16 mm round) Genitourinary: Yes: Within Normal Limits Back: Yes: Normal Inspection Musculoskeletal: Yes: full range of Motion, Gait Steady Extremities: Yes: Normal Capillary Refill, Tremors 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: Yes: Fully Oriented, Alert, Motor Strength 5/5 Integumentary: Yes: Normal Color, Warm Lymphatic: Yes: Within Normal Limits - Diagnostic (1) Alcohol dependence with uncomplicated withdrawal Current Visit: Yes Status: Acute (2) Nicotine dependence Current Visit: Yes Status: Chronic (3) Abdominal hernia Current Visit: Yes Status: Chronic Qualifiers: Hernia type: other abdominal hernia Obstruction and gangrene presence: without obstruction or gangrene Qualified Code(s): K45.8 - Other specified abdominal hernia without obstruction or gangrene Comment: Umbilica and ventral hernias (4) Allergic rhinitis Current Visit: Yes Status: Chronic Qualifiers: Allergic rhinitis trigger: unspecified Allergic rhinitis seasonality: unspecified Qualified Code(s): J30.9 - Allergic rhinitis, unspecified (5) GERD (gastroesophageal reflux disease) Current Visit: Yes Status: Chronic Qualifiers: Esophagitis presence: without esophagitis Qualified Code(s): K21.9 - Gastro-esophageal reflux disease without esophagitis (6) History of hemorrhoids Current Visit: Yes Status: Chronic (7) History of syphilis Current Visit: Yes Status: Chronic (8) History of positive PPD Current Visit: Yes Status: Chronic Comment: ALLERGY Cleared for Admission S - Detox or Rehab [facility] Level of Care: Medically Managed Detox Regimen/Protocol: Librium Claeared for Rehab Admission: No Breathalyzer - Breathalyzer Breathalyzer: 0.096 Urine Drug Screen - Test Device Lot number: [id number] Expiration date: 08/06/21 - Control Is test valid?: Yes - Results Drug screen NEGATIVE: No Urine drug screen results: MET-Methamphetamine Inpatient Rehab Admission - Rehab Decision to Admit Inpatient rehab admission?: No
--- OUTSIDE RECORDS SUMMARY | 2020-02-10 18:44 | XMS ---
:1955 Author Organization [facility] Care Team Providers Name Role Phone [id number], [phone] Unavailable Unavailable KAI BOWENS MD Unavailable Unavailable [...] is protected by Article 27-F of the [facility] [place] Public Health law. If you continue you may haveaccess to information: Regarding HIV / AIDS; Provided by facilities licensed or operated by the [facility] [place] Office of Mental Health; or Provided by the [facility] [place] Office for People With Developmental Disabilities. If such information is present, then the following [facility] [place] mandated warning applies: This information has been [...] law may result in a fine or nursing home sentence or both. A general authorization for the release of medical or other information is NOT sufficient authorization for further disclosure. Encounters Encounter Providers Location Date Indications Data Source(s ) Inpatient Attender: MARIBEL DAVIDV-1D 05/08/2019 [facility] 07:02:00 PM EST Hospital : [facility] 05/28/2019 10:29:00 PM EST Patient discharged. Attender: 05/08/2019 [facility] [id number] 07:02:00 PM [facility] Hospital [id number] 05/08/2019 [facility] 06:24:00 PM EST - Hospita l 05/08/2019 07:37:00 PM EST Patient discharged. Attender: [id number] 06:24:00 [id number] Hospital Medications Medication Brand Start Product Dose Route Administrative Pharmacy [facility] Indications Reaction Description Data Name Date Form [...] name Policy type Policy ID Covered Covered alliance party's Policy P ralph / Coverage alliance party ID relationship to Naik Inf ormation type naik [facility] [id number] SP [id number] [facility] [id number] SP [id number] SELF PAY 0 Self 0 MEDICAID INP [id number] Self [id number] E [facility] [id number] Self [id number] [facility] [id number] SP [id number] E [employer] BS [id number] [facility] 182 Results ID Date Data Source [id number] 12/19/2019 07:55:00 AM EDT [facility] Name Value Range Interpretation Description Data Sup porting Code Source(s) Document(s ) SARS [facility] coronavirus 2 RNA This lab was ordered by [facility] Bill Inter and reported by [facility]. ID Date Data Source [id number] 11/12/2019 11:10:00 AM EDT [facility] Name Value Range Interpretation Description Data Sup porting Code Source(s) Document(s ) SARS [facility] coronavirus 2 RNA This lab was ordered by [facility] Bill Inter and reported by [facility]. ID Date Data Source [id number] 09/26/2019 11:20:00 AM EDT [facility] Name Value Range Interpretation Description Data Sup porting Code Source(s) Document(s ) SARS [facility] CORONAVIRUS 2 RNA This lab was ordered by [facility] Bill Inter and reported by [facility]. Procedure Vital Signs ID Date Data Source UNK Name Value Range Interpretation Code Description Data Source(s) Body weight 209 lbs 209 lbs [facility] Diastolic blood 88 mmHg 88 mmHg [facility] Systolic blood 153 mmHg 153 mmHg [facility] Respiratory rate 18 bpm 18 bpm [facility] Heart rate 94 bpm 94 bpm [facility] Body temperature 95.9 Fahrenheit 95.9 Fahrenhei t [facility] Diastolic blood 86 mmHg 86 mmHg [facility] Systolic blood 134 mmHg 134 mmHg [facility] Respiratory rate 18 bpm 18 bpm [facility] Heart rate 87 bpm 87 bpm [facility] Body temperature 97 Fahrenheit 97 Fahrenheit [facility] Diastolic blood 82 mmHg 82 mmHg [facility] Systolic blood 126 mmHg 126 mmHg [facility] Respiratory rate 18 bpm 18 bpm [facility] Heart rate 90 bpm 90 bpm [facility] Diastolic blood 83 mmHg 83 mmHg [facility] Systolic blood 137 mmHg 137 mmHg [facility] Respiratory rate 18 bpm 18 bpm [facility] Heart rate 87 bpm 87 bpm [facility] Diastolic blood 80 mmHg 80 mmHg [facility] Systolic blood 136 mmHg 136 mmHg [facility] Respiratory rate 16 bpm 16 bpm [facility] Heart rate 89 bpm 89 bpm [facility] Body temperature 96.3 Fahrenheit 96.3 Fahrenhei t [facility] Body weight 229 lbs 229 lbs [facility] Diastolic blood 72 mmHg 72 mmHg [facility] Systolic blood 146 mmHg 146 mmHg [facility] Respiratory rate 18 bpm 18 bpm [facility] Heart rate 95 bpm 95 bpm [facility] Diastolic blood 76 mmHg 76 mmHg [facility] Systolic blood 132 mmHg 132 mmHg [facility] Diastolic blood 77 mmHg 77 mmHg [facility] Systolic blood 156 mmHg 156 mmHg [facility] Respiratory rate 18 bpm 18 bpm [facility] Heart rate 91 bpm 91 bpm [facility] Body temperature 97.4 Fahrenheit 97.4 Fahrenh t [facility] Diastolic blood 93 mmHg 93 mmHg [facility] Systolic blood 149 mmHg 149 mmHg [facility] Respiratory rate 18 bpm 18 bpm [facility] Heart rate 91 bpm 91 bpm [facility] Body temperature 96.1 Fahrenheit 96.1 Fahrenhei t [facility] Diastolic blood 92 mmHg 92 mmHg [facility] Systolic blood 138 mmHg 138 mmHg [facility] Respiratory rate 18 bpm 18 bpm [facility] Heart rate 95 bpm 95 bpm [facility] Body temperature 97.4 Fahrenheit 97.4 Fahrenh t [facility] Body weight 227 lbs 227 lbs [facility] Diastolic blood 96 mmHg 96 mmHg [facility] Systolic blood 157 mmHg 157 mmHg [facility] Respiratory rate 18 bpm 18 bpm [facility] Heart rate 91 bpm 91 bpm [facility] Diastolic blood 75 mmHg 75 mmHg [facility] Systolic blood 143 mmHg 143 mmHg [facility] Respiratory rate 20 bpm 20 bpm [facility] Heart rate 86 bpm 86 bpm [facility] Body temperature 98.1 Fahrenheit 98.1 Fahrenh t [facility] ID Date Data Source [id number] 05/28/2019 10:30:03 PM EST [facility] Name Value Range Interpretation Code Description Data Source(s) Body weight Measured 209 lb 209 lb [facility] Body weight Measured 229 lb 229 lb [facility] Body weight Measured 227 lb 227 lb [facility] Body weight Measured 220 lb 220 lb [facility] ID Date Data Source [id number] 05/08/2019 06:24:59 PM EST [facility] Name Value Range Interpretation Code Description Data Source(s) Body weight Measured 220 lb 220 lb [facility]
[2020-02-10] MEDS ORDERED: ACETAMINOPHEN 325 MG TABLET (FP) PO PRN ×2 (19:54)
[2020-02-10] MEDS ORDERED: chlordiazePOXIDE HCL 25 MG CAPSULE PO ONE (19:54)
[2020-02-10] MEDS ORDERED: IBUPROFEN 400 MG TABLET (FP) PO PRN (19:54)
[2020-02-10] MEDS ORDERED: BISMUTH SUBSALICYLATE 524 MG/30 ML UD PO PRN (19:54)
[2020-02-10] MEDS ORDERED: NICOTINE POLACRILEX 2 MG GUM BUC PRN (19:54)
[2020-02-10] MEDS ORDERED: ONDANSETRON *ODT* 4 MG TABLET SL PRN (19:54)
[2020-02-10] MEDS ORDERED: METHOCARBAMOL 500 MG TABLET PO PRN (19:54)
[2020-02-10] MEDS ORDERED: MAGNESIUM CITRATE 300 ML BOTTLE PO PRN (19:54)
[2020-02-10] MEDS ORDERED: chlordiazePOXIDE HCL 25 MG CAPSULE PO PRN (19:54)
[2020-02-10] MEDS ORDERED: LORATADINE 10 MG TABLET PO PRN (19:57)
[2020-02-10] MEDS: HYDROCORTISONE 2.5% TOPICAL CREAM 30 GM TUBE TP SCH (23:15)
[2020-02-10] MEDS: THIAMINE HCL 100 MG TABLET (FP) PO SCH (23:15)
[2020-02-10] MEDS: MELATONIN 5 MG TABLETS PO SCH (23:16)
[2020-02-10] MEDS: ARTIFICIAL TEARS (POLYVINYL ALCOHOL) OPTH DROPS OU SCH (23:16)
[2020-02-10] MEDS: FLUTICASONE PROP 0.05% 16 GM NASAL SPRAY NS SCH (23:16)
[2020-02-10] MEDS: chlordiazePOXIDE HCL 25 MG CAPSULE PO SCH (23:20)
[2020-02-11] MEDS: chlordiazePOXIDE HCL 25 MG CAPSULE PO SCH ×4 (06:03→23:42)
[2020-02-11] MEDS: FAMOTIDINE 20 MG TABLET PO SCH (06:04)
[2020-02-11] MEDS: ARTIFICIAL TEARS (POLYVINYL ALCOHOL) OPTH DROPS OU SCH ×3 (07:49→23:42)
[2020-02-11] MEDS: HYDROCORTISONE 2.5% TOPICAL CREAM 30 GM TUBE TP SCH ×2 (07:49→23:41)
--- NOTE | 2020-02-11 10:18 | PN ---
S CIWA - CIWA Score Nausea/Vomitin-No Nausea/No Vomiting Muscle Tremors: 3 Anxiety: 2 Agitation: 2 Paroxysmal Sweats: 2 Orientation: 0-Oriented Tacttile Disturbances: 0-None Auditory Disturbances: 0-None Visual Disturbances: 0-None Headache: 0-None Present CIWA-Ar Total Score: 9 [facility] Progress Note (SOAP) Subjective: diarrhea sweats restless Objective: 02/11/20 10:17 Vital Signs Temperature 97.1 F L 02/11/20 08:38 Pulse Rate 107 H 02/11/20 08:38 Respiratory Rate 16 02/11/20 08:38 Blood Pressure 129/92 02/11/20 08:38 O2 Sat by Pulse Oximetry (%) 97 02/11/20 08:38 labs pending aaox3 ambulating no acute distress Assessment: 02/11/20 10:18 withdrawals Plan: continue detox
[2020-02-11] MEDS: FLUTICASONE PROP 0.05% 16 GM NASAL SPRAY NS SCH ×2 (10:27→23:42)
[2020-02-11] MEDS: PRENATAL VITAMINS W/ FOLIC ACID TABLET (FP) PO SCH (10:27)
[2020-02-11] MEDS: NAPROXEN 500 MG TABLET PO PRN ×2 (10:32→18:04)
[2020-02-11 11:53] LABS: HEMATOCRIT 38.8 % (35.4-49); HEMOGLOBIN 13.3 GM/dL (11.7-16.9); MCH 31.7 pg (25.7-33.7); MCHC 34.3 g/dl (32.0-35.9); MEAN CELL VOLUME 92.3 fl (80-96); MEAN PLT VOLUME 8.1 fl (7.5-11.1); PLATELET COUNT 314 K/MM3 (134-434); RBC 4.21 M/mm3 (4.00-5.60); RDW 16.1 % (11.9-15.9); WHITE BLOOD COUNT 9.2 K/mm3 (4.0-10.0)
[2020-02-11 12:01] LABS: BILIRUBIN,TOTAL 0.7 mg/dL (0.2-1); BLOOD UREA NITROGEN 18.3 mg/dL (7-18); CREATININE 1.4 mg/dL (0.55-1.3); POTASSIUM 4.6 mmol/L (3.5-5.1); TOT PROT 8.1 g/dl (6.4-8.2)
[2020-02-11] MEDS: MAG HYDROX/AL HYDROX/SIMETH 30 ML UNIT-DOSE CUP PO PRN ×2 (13:57→18:04)
[2020-02-11] MEDS: MELATONIN 5 MG TABLETS PO SCH (23:42)
[2020-02-11] MEDS: THIAMINE HCL 100 MG TABLET (FP) PO SCH (23:42)
[2020-02-12] MEDS: chlordiazePOXIDE HCL 25 MG CAPSULE PO SCH ×4 (06:02→22:38)
[2020-02-12] MEDS: FAMOTIDINE 20 MG TABLET PO SCH (06:02)
[2020-02-12] MEDS: ARTIFICIAL TEARS (POLYVINYL ALCOHOL) OPTH DROPS OU SCH ×3 (06:06→22:41)
[2020-02-12] MEDS: PRENATAL VITAMINS W/ FOLIC ACID TABLET (FP) PO SCH (10:12)
[2020-02-12] MEDS: FLUTICASONE PROP 0.05% 16 GM NASAL SPRAY NS SCH ×2 (10:12→22:41)
[2020-02-12] MEDS: NAPROXEN 500 MG TABLET PO PRN (10:12)
[2020-02-12] MEDS: HYDROCORTISONE 2.5% TOPICAL CREAM 30 GM TUBE TP SCH ×2 (10:14→22:41)
--- NOTE | 2020-02-12 11:55 | PN ---
S CIWA - CIWA Score Nausea/Vomitin-No Nausea/No Vomiting Muscle Tremors: 3 Anxiety: 1-Mildly Anxious Agitation: 2 Paroxysmal Sweats: 1-Minimal Palms Moist Orientation: 0-Oriented Tacttile Disturbances: 0-None Auditory Disturbances: 0-None Visual Disturbances: 0-None Headache: 0-None Present CIWA-Ar Total Score: 7 [facility] Progress Note (SOAP) Subjective: sweats interrupted sleep Objective: 02/12/20 11:54 Vital Signs Temperature 98.1 F 02/12/20 09:48 Pulse Rate 81 02/12/20 09:48 Respiratory Rate 16 02/12/20 09:48 Blood Pressure 136/77 02/12/20 09:48 O2 Sat by Pulse Oximetry (%) 96 02/12/20 09:48 Laboratory Tests 02/11/20 02/11/20 02/11/20 07:00 07:30 07:30 WBC 9.2 RBC 4.21 Hgb 13.3 Hct 38.8 MCV 92.3 MCH 31.7 MCHC 34.3 RDW 16.1 H Plt Count 314 D MPV 8.1 Sodium 138 Potassium 4.6 Chloride 107 Carbon Dioxide 22 Anion Gap 9 BUN 18.3 H Creatinine 1.4 H Est GFR (CKD-EPI)AfAm 61.53 Est GFR (CKD-EPI)NonAf 53.09 Random Glucose 119 H Calcium 9.0 Total Bilirubin 0.7 AST 42 H ALT 43 Alkaline Phosphatase 64 Total Protein 8.1 Albumin 4.0 Syphilis Serology Reactive A* RPR Titer 02/11/20 07:30 WBC RBC Hgb Hct MCV MCH MCHC RDW Plt Count MPV Sodium Potassium Chloride Carbon Dioxide Anion Gap BUN Creatinine Est GFR (CKD-EPI)AfAm Est GFR (CKD-EPI)NonAf Random Glucose Calcium Total Bilirubin AST ALT Alkaline Phosphatase Total Protein Albumin Syphilis Serology RPR Titer Reactive 1:1 H labs noted elevated BUN and creatinine will repeat labs encourage fluids aaox3 ambulating no acute distress Assessment: 02/12/20 11:54 withdrawals Plan: continue detox repeat labs
[2020-02-12] MEDS: MAG HYDROX/AL HYDROX/SIMETH 30 ML UNIT-DOSE CUP PO PRN (16:50)
[2020-02-12] MEDS: THIAMINE HCL 100 MG TABLET (FP) PO SCH (22:38)
[2020-02-12] MEDS: MAGNESIUM HYDROX 2400MG/30ML ORAL SUSPENSION 30 ML CUP PO PRN (22:40)
[2020-02-12] MEDS: MELATONIN 5 MG TABLETS PO SCH (22:41)
[2020-02-13] MEDS ORDERED: chlordiazePOXIDE HCL 10 MG CAPSULE PO PRN
[2020-02-13] MEDS: ARTIFICIAL TEARS (POLYVINYL ALCOHOL) OPTH DROPS OU SCH ×3 (06:11→22:36)
[2020-02-13] MEDS: FAMOTIDINE 20 MG TABLET PO SCH (06:11)
[2020-02-13] MEDS: chlordiazePOXIDE HCL 10 MG CAPSULE PO SCH ×4 (06:11→22:30)
[2020-02-13] MEDS: PRENATAL VITAMINS W/ FOLIC ACID TABLET (FP) PO SCH (10:08)
[2020-02-13] MEDS: FLUTICASONE PROP 0.05% 16 GM NASAL SPRAY NS SCH ×2 (10:08→22:30)
[2020-02-13] MEDS: NAPROXEN 500 MG TABLET PO PRN ×2 (10:09→18:08)
[2020-02-13] MEDS: HYDROCORTISONE 2.5% TOPICAL CREAM 30 GM TUBE TP SCH ×2 (10:09→22:37)
[2020-02-13 10:27] LABS: ALBUMIN 3.9 g/dl (3.4-5.0); BILIRUBIN,TOTAL 0.6 mg/dL (0.2-1); BLOOD UREA NITROGEN 17.5 mg/dL (7-18); CALCIUM 9.3 mg/dL (8.5-10.1); POTASSIUM 4.4 mmol/L (3.5-5.1); TOT PROT 7.7 g/dl (6.4-8.2)
--- NOTE | 2020-02-13 12:53 | PN ---
S CIWA - CIWA Score Nausea/Vomitin-No Nausea/No Vomiting Muscle Tremors: 1-None Visible, but Delta Anxiety: 1-Mildly Anxious Agitation: 1-Slight > Activity Paroxysmal Sweats: 1-Minimal Palms Moist Orientation: 0-Oriented Tacttile Disturbances: 0-None Auditory Disturbances: 0-None Visual Disturbances: 0-None Headache: 0-None Present CIWA-Ar Total Score: 4 [facility] Progress Note (SOAP) Subjective: sweats stomach ache Objective: 02/13/20 12:49 Vital Signs Temperature 97.3 F L 02/13/20 08:41 Pulse Rate 116 H 02/13/20 08:41 Respiratory Rate 20 02/13/20 08:41 Blood Pressure 114/77 02/13/20 08:41 O2 Sat by Pulse Oximetry (%) 100 02/13/20 05:50 Laboratory Tests 02/11/20 02/11/20 02/11/20 07:00 07:30 07:30 WBC 9.2 RBC 4.21 Hgb 13.3 Hct 38.8 MCV 92.3 MCH 31.7 MCHC 34.3 RDW 16.1 H Plt Count 314 D MPV 8.1 Sodium 138 Potassium 4.6 Chloride 107 Carbon Dioxide 22 Anion Gap 9 BUN 18.3 H Creatinine 1.4 H Est GFR (CKD-EPI)AfAm 61.53 Est GFR (CKD-EPI)NonAf 53.09 Random Glucose 119 H Calcium 9.0 Total Bilirubin 0.7 AST 42 H ALT 43 Alkaline Phosphatase 64 Total Protein 8.1 Albumin 4.0 Syphilis Serology Reactive A* RPR Titer 02/11/20 02/13/20 07:30 07:00 WBC RBC Hgb Hct MCV MCH MCHC RDW Plt Count MPV Sodium 139 Potassium 4.4 Chloride 106 Carbon Dioxide 26 Anion Gap 6 L BUN 17.5 Creatinine 1.0 Est GFR (CKD-EPI)AfAm 92.42 Est GFR (CKD-EPI)NonAf 79.75 Random Glucose 92 Calcium 9.3 Total Bilirubin 0.6 AST 26 ALT 33 Alkaline Phosphatase 54 Total Protein 7.7 Albumin 3.9 Syphilis Serology RPR Titer Reactive 1:1 H labs noted aaox3 ambulating no acute distress Assessment: 02/13/20 12:52 withdrawals Plan: continue detox bently prn
[2020-02-13] MEDS: DICYCLOMINE HCL 10 MG CAPSULE PO PRN ×2 (14:25→22:30)
[2020-02-13] MEDS: MENTHOL/PHENOL 1 EACH UD MM PRN (14:53)
[2020-02-13] MEDS: MAG HYDROX/AL HYDROX/SIMETH 30 ML UNIT-DOSE CUP PO PRN (18:07)
[2020-02-13] MEDS: THIAMINE HCL 100 MG TABLET (FP) PO SCH (22:30)
[2020-02-13] MEDS: MELATONIN 5 MG TABLETS PO SCH (22:32)
[2020-02-13] MEDS: MAGNESIUM HYDROX 2400MG/30ML ORAL SUSPENSION 30 ML CUP PO PRN (22:32)
[2020-02-14] MEDS: chlordiazePOXIDE HCL 10 MG CAPSULE PO SCH ×2 (05:54→17:37)
[2020-02-14] MEDS: ARTIFICIAL TEARS (POLYVINYL ALCOHOL) OPTH DROPS OU SCH ×3 (05:55→22:39)
[2020-02-14] MEDS: FAMOTIDINE 20 MG TABLET PO SCH (05:55)
[2020-02-14] MEDS: PRENATAL VITAMINS W/ FOLIC ACID TABLET (FP) PO SCH (10:55)
[2020-02-14] MEDS: NAPROXEN 500 MG TABLET PO PRN (10:58)
[2020-02-14] MEDS: DICYCLOMINE HCL 10 MG CAPSULE PO PRN (10:58)
[2020-02-14] MEDS: FLUTICASONE PROP 0.05% 16 GM NASAL SPRAY NS SCH ×2 (10:59→22:38)
[2020-02-14] MEDS: HYDROCORTISONE 2.5% TOPICAL CREAM 30 GM TUBE TP SCH ×2 (11:01→22:39)
--- NOTE | 2020-02-14 13:19 | PN ---
S CIWA - CIWA Score Nausea/Vomitin-No Nausea/No Vomiting Muscle Tremors: 2 Anxiety: 1-Mildly Anxious Agitation: 0-Normal Activity Paroxysmal Sweats: No Perspiration Orientation: 0-Oriented Tacttile Disturbances: 0-None Auditory Disturbances: 0-None Visual Disturbances: 0-None Headache: 0-None Present CIWA-Ar Total Score: 3 [facility] Progress Note (SOAP) Subjective: interrupted sleep my stomach feeling better less cramps Objective: 02/14/20 13:18 Vital Signs Temperature 97.3 F L 02/14/20 09:01 Pulse Rate 110 H 02/14/20 09:01 Respiratory Rate 18 02/14/20 09:01 Blood Pressure 116/71 02/14/20 09:01 O2 Sat by Pulse Oximetry (%) 98 02/14/20 05:39 aaox3 ambulating no acute distress Assessment: 02/14/20 13:18 mild withdrawals Plan: d/c in am
--- NOTE | 2020-02-14 14:26 | PN ---
[facility] Progress Note Note: pt will benefit on staying on the unit till Monday because of his h/o of relapse. on Monday pt has a secure placement for inpatient rehab.
[2020-02-14] MEDS: MENTHOL/PHENOL 1 EACH UD MM PRN (15:27)
[2020-02-14] MEDS: MAGNESIUM HYDROX 2400MG/30ML ORAL SUSPENSION 30 ML CUP PO PRN (22:37)
[2020-02-14] MEDS: THIAMINE HCL 100 MG TABLET (FP) PO SCH (22:40)
[2020-02-14] MEDS: MELATONIN 5 MG TABLETS PO SCH (22:40)
[2020-02-15] MEDS ORDERED: chlordiazePOXIDE HCL 10 MG CAPSULE PO ONE (05:00)
[2020-02-15] MEDS: ARTIFICIAL TEARS (POLYVINYL ALCOHOL) OPTH DROPS OU SCH ×3 (05:46→23:05)
[2020-02-15] MEDS: FAMOTIDINE 20 MG TABLET PO SCH (06:24)
[2020-02-15] MEDS: HYDROCORTISONE 2.5% TOPICAL CREAM 30 GM TUBE TP SCH ×2 (11:23→23:05)
[2020-02-15] MEDS: NAPROXEN 500 MG TABLET PO PRN ×2 (11:28→22:30)
[2020-02-15] MEDS: FLUTICASONE PROP 0.05% 16 GM NASAL SPRAY NS SCH ×2 (11:28→23:05)
[2020-02-15] MEDS: DICYCLOMINE HCL 10 MG CAPSULE PO PRN (11:28)
[2020-02-15] MEDS: PRENATAL VITAMINS W/ FOLIC ACID TABLET (FP) PO SCH (11:29)
[2020-02-15] MEDS: MENTHOL/PHENOL 1 EACH UD MM PRN (14:07)
[2020-02-15] MEDS: MAG HYDROX/AL HYDROX/SIMETH 30 ML UNIT-DOSE CUP PO PRN (17:47)
--- NOTE | 2020-02-15 19:00 | PN ---
S CIWA - CIWA Score Nausea/Vomitin-No Nausea/No Vomiting Muscle Tremors: None Anxiety: 3 Agitation: 3 Paroxysmal Sweats: No Perspiration Orientation: 0-Oriented Tacttile Disturbances: 0-None Auditory Disturbances: 0-None Visual Disturbances: 0-None Headache: 0-None Present CIWA-Ar Total Score: 6 B[facility] Progress Note (SOAP) Subjective: Heartburn, Anxious. Objective: Patient A & O X 3, Observed Ambulating on Detox Unit Unassisted. In No Acute Distress. 02/15/20 19:00 Vital Signs Temperature 97.7 F 02/15/20 16:30 Pulse Rate 89 02/15/20 16:30 Respiratory Rate 17 02/15/20 16:30 Blood Pressure 159/86 02/15/20 16:30 O2 Sat by Pulse Oximetry (%) 99 02/15/20 16:30 Laboratory Tests 02/10/20 02/11/20 02/11/20 20:30 07:00 07:30 WBC 9.2 RBC 4.21 Hgb 13.3 Hct 38.8 MCV 92.3 MCH 31.7 MCHC 34.3 RDW 16.1 H Plt Count 314 D MPV 8.1 Sodium 138 Potassium 4.6 Chloride 107 Carbon Dioxide 22 Anion Gap 9 BUN 18.3 H Creatinine 1.4 H Est GFR (CKD-EPI)AfAm 61.53 Est GFR (CKD-EPI)NonAf 53.09 Random Glucose 119 H Calcium 9.0 Total Bilirubin 0.7 AST 42 H ALT 43 Alkaline Phosphatase 64 Total Protein 8.1 Albumin 4.0 Syphilis Serology RPR Titer COVID-19 (DREAD) Not detected 02/11/20 02/11/20 02/13/20 07:30 07:30 07:00 WBC RBC Hgb Hct MCV MCH MCHC RDW Plt Count MPV Sodium 139 Potassium 4.4 Chloride 106 Carbon Dioxide 26 Anion Gap 6 L BUN 17.5 Creatinine 1.0 Est GFR (CKD-EPI)AfAm 92.42 Est GFR (CKD-EPI)NonAf 79.75 Random Glucose 92 Calcium 9.3 Total Bilirubin 0.6 AST 26 ALT 33 Alkaline Phosphatase 54 Total Protein 7.7 Albumin 3.9 Syphilis Serology Reactive A* RPR Titer Reactive 1:1 H COVID-19 (DREAD) Lab Results noted. Detox Admission RPR Result noted: Reactive A; Reactive; Titer 1:1. Patient reports that he completed treatment for Syphilis in the past. Assessment: 02/15/20 19:01 WITHDRAWAL SYMPTOMS. REACTIVE RPR. Plan: Continue Detox.
[2020-02-15] MEDS: MAGNESIUM HYDROX 2400MG/30ML ORAL SUSPENSION 30 ML CUP PO PRN (22:30)
[2020-02-15] MEDS: MELATONIN 5 MG TABLETS PO SCH (23:05)
[2020-02-15] MEDS: THIAMINE HCL 100 MG TABLET (FP) PO SCH (23:05)
[2020-02-16] MEDS: ARTIFICIAL TEARS (POLYVINYL ALCOHOL) OPTH DROPS OU SCH ×3 (05:48→22:22)
[2020-02-16] MEDS: FAMOTIDINE 20 MG TABLET PO SCH (05:48)
[2020-02-16] MEDS: PRENATAL VITAMINS W/ FOLIC ACID TABLET (FP) PO SCH (10:00)
[2020-02-16] MEDS: NAPROXEN 500 MG TABLET PO PRN ×2 (10:00→22:21)
[2020-02-16] MEDS: HYDROCORTISONE 2.5% TOPICAL CREAM 30 GM TUBE TP SCH ×2 (10:00→22:21)
[2020-02-16] MEDS: FLUTICASONE PROP 0.05% 16 GM NASAL SPRAY NS SCH ×2 (10:01→22:21)
--- NOTE | 2020-02-16 12:39 | PN ---
S CIWA - CIWA Score Nausea/Vomitin-No Nausea/No Vomiting Muscle Tremors: None Anxiety: 2 Agitation: 0-Normal Activity Paroxysmal Sweats: No Perspiration Orientation: 0-Oriented Tacttile Disturbances: 0-None Auditory Disturbances: 0-None Visual Disturbances: 0-None Headache: 0-None Present CIWA-Ar Total Score: 2 BHS Progress Note (SOAP) Subjective: Complaints of mild anxiety. Objective: 02/16/20 12:37 Alert and oriented x3, in no acute respiratory distress. Full ROM, ambulating in unit without any assistance. Skin warm to touch without lesions. 02/16/20 12:37 Vital Signs 02/16/20 02/16/20 06:24 08:50 Temperature 97.3 F L 97.1 F L Pulse Rate 84 100 H Respiratory 20 19 Rate Blood Pressure 151/82 149/86 O2 Sat by Pulse 100 100 Oximetry (%) Assessment: 02/16/20 12:38 Withdrawal symptoms. Plan: D/C in AM
[2020-02-16] MEDS: DICYCLOMINE HCL 10 MG CAPSULE PO PRN (22:19)
[2020-02-16] MEDS: THIAMINE HCL 100 MG TABLET (FP) PO SCH (22:22)
[2020-02-16] MEDS: MELATONIN 5 MG TABLETS PO SCH (22:22)
[2020-02-16] MEDS: MAGNESIUM HYDROX 2400MG/30ML ORAL SUSPENSION 30 ML CUP PO PRN (22:27)
[2020-02-17] MEDS: ARTIFICIAL TEARS (POLYVINYL ALCOHOL) OPTH DROPS OU SCH ×2 (05:53→15:25)
[2020-02-17] MEDS: FAMOTIDINE 20 MG TABLET PO SCH (05:54)
[2020-02-17 09:50] VITALS: BP 154/91; PULSE 81; TEMP 98.6
[2020-02-17] MEDS: HYDROCORTISONE 2.5% TOPICAL CREAM 30 GM TUBE TP SCH (10:35)
[2020-02-17] MEDS: PRENATAL VITAMINS W/ FOLIC ACID TABLET (FP) PO SCH (10:36)
[2020-02-17] MEDS: FLUTICASONE PROP 0.05% 16 GM NASAL SPRAY NS SCH (10:36)
--- NOTE | 2020-02-17 12:03 | DS ---
[facility] Detox Discharge Summary Admission Date: 02/10/20 Discharge Date: 02/17/20 - History Present History: Alcohol Dependence, Cannabis Dependence, Cocaine Dependence - Physical Exam Results Vital Signs: Vital Signs Temperature 98.6 F 02/17/20 08:31 Pulse Rate 81 02/17/20 08:31 Respiratory Rate 18 02/17/20 08:31 Blood Pressure 154/91 02/17/20 08:31 O2 Sat by Pulse Oximetry (%) 97 02/17/20 08:31 Pertinent Admission Physical Exam Findings: Vital Signs Temperature 98.6 F 02/17/20 08:31 Pulse Rate 81 02/17/20 08:31 Respiratory Rate 18 02/17/20 08:31 Blood Pressure 154/91 02/17/20 08:31 O2 Sat by Pulse Oximetry (%) 97 02/17/20 08:31 Laboratory Tests 02/10/20 02/11/20 02/11/20 20:30 07:00 07:30 WBC 9.2 RBC 4.21 Hgb 13.3 Hct 38.8 MCV 92.3 MCH 31.7 MCHC 34.3 RDW 16.1 H Plt Count 314 D MPV 8.1 Sodium 138 Potassium 4.6 Chloride 107 Carbon Dioxide 22 Anion Gap 9 BUN 18.3 H Creatinine 1.4 H Est GFR (CKD-EPI)AfAm 61.53 Est GFR (CKD-EPI)NonAf 53.09 Random Glucose 119 H Calcium 9.0 Total Bilirubin 0.7 AST 42 H ALT 43 Alkaline Phosphatase 64 Total Protein 8.1 Albumin 4.0 Syphilis Serology RPR Titer COVID-19 (DREAD) Not detected 02/11/20 02/11/20 02/13/20 07:30 07:30 07:00 WBC RBC Hgb Hct MCV MCH MCHC RDW Plt Count MPV Sodium 139 Potassium 4.4 Chloride 106 Carbon Dioxide 26 Anion Gap 6 L BUN 17.5 Creatinine 1.0 Est GFR (CKD-EPI)AfAm 92.42 Est GFR (CKD-EPI)NonAf 79.75 Random Glucose 92 Calcium 9.3 Total Bilirubin 0.6 AST 26 ALT 33 Alkaline Phosphatase 54 Total Protein 7.7 Albumin 3.9 Syphilis Serology Reactive A* RPR Titer Reactive 1:1 H COVID-19 (DREAD) aaox3 ambulating no acute distress lungs cta - Treatment Hospital Course: Detox Protocol Followed, Detoxed Safely, Responded well, Discharged Condition Good, Rehab Referral Accepted - Medication Discharge Medications: Ambulatory Orders Fluticasone Propionate [Flonase Allergy Relief] 2 spray IN BID 05/04/19 Naproxen [Naprosyn] 500 mg PO BID PRN 05/04/19 Lansoprazole [Prevacid] 30 mg PO DAILY 06/12/19 Loratadine [Claritin -] 10 mg PO PRN PRN 09/26/19 Hydrocortisone 2.5% Topical Cr [Anusol-Hc -] 1 applic TID 12/19/19 Mag Hydrox/Al Hydrox/Simeth [Mylanta Oral Suspension -] 30 ml PO PRN PRN 12/19/19 Phenyleph/Pramoxin/Glycr/W.pet [Preparation H Cream] 51 gm RC PRN PRN 12/19/19 Famotidine [Pepcid -] 20 mg PO DAILY@0600 #14 tablet 12/30/19 Polyvinyl Alcohol [Artificial Tears] 1 drop OU TID #1 bottle 12/30/19 Ibuprofen [Motrin -] 600 mg PO BID 02/10/20 - Diagnosis (1) Alcohol dependence with uncomplicated withdrawal Current Visit: Yes Status: Chronic (2) Positive RPR test Current Visit: Yes Status: Acute (3) Abdominal hernia Current Visit: Yes Status: Chronic Qualifiers: Hernia type: other abdominal hernia Obstruction and gangrene presence: without obstruction or gangrene Qualified Code(s): K45.8 - Other specified abdominal hernia without obstruction or gangrene (4) Allergic rhinitis Current Visit: Yes Status: Chronic Qualifiers: Allergic rhinitis trigger: unspecified Allergic rhinitis seasonality: unspecified Qualified Code(s): J30.9 - Allergic rhinitis, unspecified (5) GERD (gastroesophageal reflux disease) Current Visit: Yes Status: Chronic Qualifiers: Esophagitis presence: without esophagitis Qualified Code(s): K21.9 - Gastro-esophageal reflux disease without esophagitis (6) History of hemorrhoids Current Visit: Yes Status: Chronic (7) History of positive PPD Current Visit: Yes Status: Chronic (8) History of syphilis Current Visit: Yes Status: Chronic (9) Nicotine dependence Current Visit: Yes Status: Chronic (10) Cannabis dependence Current Visit: No Status: Acute (11) Elevated blood-pressure reading, without diagnosis of hypertension Current Visit: No Status: Acute (12) Substance-induced anxiety disorder Current Visit: No Status: Acute (13) Substance-induced sleep disorder Current Visit: No Status: Acute (14) Substance-induced sleep disorder Current Visit: No Status: Acute (15) Back pain Current Visit: No Status: Chronic Qualifiers: Back pain location: low back pain Back pain laterality: unspecified (16) Bulging eyes Current Visit: No Status: Chronic (17) Cannabis abuse Current Visit: No Status: Chronic (18) Cocaine abuse Current Visit: No Status: Chronic (19) Cocaine dependence Current Visit: No Status: Chronic Qualifiers: Substance use status: uncomplicated Qualified Code(s): F14.20 - Cocaine dependence, uncomplicated (20) Dry eye Current Visit: No Status: Chronic (21) Elevated blood pressure reading Current Visit: No Status: Chronic (22) Hyperglycemia Current Visit: No Status: Chronic (23) Hypertension Current Visit: No Status: Chronic Qualifiers: Hypertension type: essential hypertension Qualified Code(s): I10 - Essential (primary) hypertension (24) Obesity (BMI 30.0-34.9) Current Visit: No Status: Chronic (25) Sinusitis chronic, ethmoidal Current Visit: No Status: Chronic (26) Substance-induced sleep disorder Current Visit: No Status: Chronic (27) Syphilis contact, treated Current Visit: No Status: Chronic (28) Umbilical hernia Current Visit: No Status: Chronic Qualifiers: Obstruction and gangrene presence: without obstruction or gangrene Qualified Code(s): K42.9 - Umbilical hernia without obstruction or gangrene (29) Substance induced mood disorder Current Visit: No Status: Suspected (30) Positive PPD Current Visit: No Status: Resolved - AMA Did Patient Leave Against Medical Advice: No
== END 2020-02-17 15:43 | disposition other institution (70) | DRG 774 ==
LOC: YASAS 14:44 → Y6N 18:40
PROVIDERS: ADMIT Allergy & Immunology; ATTEND Allergy & Immunology
PROC: HZ2ZZZZ Detoxification Services for Substance Abuse Treatment (ICD-10-PCS; principal; 2020-02-10)
DX: F10.230 Alcohol dependence with withdrawal, uncomplicated (principal); F14.20 Cocaine dependence, uncomplicated; F12.20 Cannabis dependence, uncomplicated; F17.210 Nicotine dependence, cigarettes, uncomplicated; F19.280 Other psychoactive substance dependence with psychoactive substance-induced anxiety disorder; F19.282 Other psychoactive substance dependence with psychoactive substance-induced sleep disorder; F19.24 Other psychoactive substance dependence with psychoactive substance-induced mood disorder; A53.0 Latent syphilis, unspecified as early or late; I10 Essential (primary) hypertension; K45.8 Other specified abdominal hernia without obstruction or gangrene; J30.9 Allergic rhinitis, unspecified; H04.123 Dry eye syndrome of bilateral lacrimal glands; Z56.0 Unemployment, unspecified; Z59.0 Homelessness; Z88.0 Allergy status to penicillin; Z88.7 Allergy status to serum and vaccine; Z91.018 Allergy to other foods
CPT/HCPCS: 36415; 80053; 85027; 86593; 86780; C9803; Q0162; U0003

== ENCOUNTER 2020-04-02 12:02 | Inpatient (IN) | payer OTHER ==
[2020-04-02 12:52] VITALS: BMI 29.7
[2020-04-02] MEDS ORDERED: LORATADINE 10 MG TABLET PO PRN (13:26)
[2020-04-02] MEDS ORDERED: NICOTINE POLACRILEX 2 MG GUM BUC PRN (13:26)
[2020-04-02] MEDS ORDERED: METHOCARBAMOL 500 MG TABLET PO PRN (13:26)
[2020-04-02] MEDS ORDERED: ONDANSETRON *ODT* 4 MG TABLET SL PRN (13:26)
[2020-04-02] MEDS ORDERED: BISMUTH SUBSALICYLATE 524 MG/30 ML UD PO PRN (13:26)
[2020-04-02] MEDS ORDERED: ACETAMINOPHEN 325 MG TABLET (FP) PO PRN (13:26)
[2020-04-02] MEDS ORDERED: IBUPROFEN 400 MG TABLET (FP) PO PRN (13:26)
[2020-04-02] MEDS ORDERED: chlordiazePOXIDE HCL 25 MG CAPSULE PO PRN (13:26)
[2020-04-02] MEDS ORDERED: MAGNESIUM CITRATE 300 ML BOTTLE PO PRN (13:26)
[2020-04-02] MEDS ORDERED: hydrOXYzine PAMOATE 25 MG CAPSULE (FP) PO SCH (14:00)
[2020-04-02] MEDS: NICOTINE 7 MG/24 HOURS TOPICAL PATCH TD SCH (14:28)
[2020-04-02] MEDS: ARTIFICIAL TEARS (POLYVINYL ALCOHOL) OPTH DROPS OU SCH ×2 (15:00→22:23)
[2020-04-02] MEDS ORDERED: hydrOXYzine PAMOATE 25 MG CAPSULE (FP) PO PRN (15:50)
[2020-04-02] MEDS: chlordiazePOXIDE HCL 25 MG CAPSULE PO SCH ×2 (17:52→22:36)
[2020-04-02 18:37] LABS: HEMATOCRIT 42.6 % (35.4-49); HEMOGLOBIN 14.3 GM/dL (11.7-16.9); MCH 32.2 pg (25.7-33.7); MCHC 33.7 g/dl (32.0-35.9); MEAN CELL VOLUME 95.7 fl (80-96); MEAN PLT VOLUME 8.6 fl (7.5-11.1); PLATELET COUNT 248 K/MM3 (134-434); RBC 4.45 M/mm3 (4.00-5.60); RDW 15.2 % (11.9-15.9)
[2020-04-02 18:41] LABS: POTASSIUM 4.3 mmol/L (3.5-5.1)
[2020-04-02 18:42] LABS: CALCIUM 9.1 mg/dL (8.5-10.1)
[2020-04-02 18:43] LABS: ALBUMIN 4.7 g/dl (3.4-5.0)
[2020-04-02 18:46] LABS: CREATININE 1.4 mg/dL (0.55-1.3)
[2020-04-02 18:47] LABS: BILIRUBIN,TOTAL 0.9 mg/dL (0.2-1); TOT PROT 8.4 g/dl (6.4-8.2)
[2020-04-02] MEDS: FLUTICASONE PROP 0.05% 16 GM NASAL SPRAY NS SCH (22:23)
[2020-04-02] MEDS: MELATONIN 5 MG TABLETS PO SCH (22:23)
[2020-04-02] MEDS: THIAMINE HCL 100 MG TABLET (FP) PO SCH (22:23)
[2020-04-03] MEDS: chlordiazePOXIDE HCL 25 MG CAPSULE PO SCH ×4 (05:57→22:25)
[2020-04-03] MEDS: ARTIFICIAL TEARS (POLYVINYL ALCOHOL) OPTH DROPS OU SCH ×3 (05:58→22:24)
[2020-04-03] MEDS: FLUTICASONE PROP 0.05% 16 GM NASAL SPRAY NS SCH ×2 (10:38→22:23)
[2020-04-03] MEDS: NICOTINE 7 MG/24 HOURS TOPICAL PATCH TD SCH (11:45)
[2020-04-03] MEDS: PRENATAL VITAMINS W/ FOLIC ACID TABLET (FP) PO SCH (11:45)
[2020-04-03] MEDS: PANTOPRAZOLE 40 MG TABLET PO SCH (14:49)
[2020-04-03] MEDS: MENTHOL/PHENOL 1 EACH UD MM PRN (14:50)
[2020-04-03] MEDS: MAG HYDROX/AL HYDROX/SIMETH 30 ML UNIT-DOSE CUP PO PRN (17:13)
[2020-04-03] MEDS: HYDROCORTISONE 2.5% TOPICAL CREAM 30 GM TUBE RC SCH (22:23)
[2020-04-03] MEDS: NAPROXEN 500 MG TABLET PO SCH (22:24)
[2020-04-03] MEDS: THIAMINE HCL 100 MG TABLET (FP) PO SCH (22:24)
[2020-04-03] MEDS: MELATONIN 5 MG TABLETS PO SCH (22:25)
[2020-04-03] MEDS: MAGNESIUM HYDROX 2400MG/30ML ORAL SUSPENSION 30 ML CUP PO PRN (22:29)
[2020-04-04] MEDS: ARTIFICIAL TEARS (POLYVINYL ALCOHOL) OPTH DROPS OU SCH ×3 (06:06→22:24)
[2020-04-04] MEDS: chlordiazePOXIDE HCL 25 MG CAPSULE PO SCH ×4 (06:06→22:25)
[2020-04-04] MEDS: ACETAMINOPHEN 325 MG TABLET (FP) PO PRN (08:42)
[2020-04-04] MEDS: MENTHOL/PHENOL 1 EACH UD MM PRN (08:42)
[2020-04-04] MEDS: FLUTICASONE PROP 0.05% 16 GM NASAL SPRAY NS SCH ×2 (10:31→22:24)
[2020-04-04] MEDS: PRENATAL VITAMINS W/ FOLIC ACID TABLET (FP) PO SCH (10:32)
[2020-04-04] MEDS: PANTOPRAZOLE 40 MG TABLET PO SCH (10:32)
[2020-04-04] MEDS: NICOTINE 7 MG/24 HOURS TOPICAL PATCH TD SCH (10:32)
[2020-04-04] MEDS: NAPROXEN 500 MG TABLET PO SCH ×2 (10:32→22:25)
[2020-04-04] MEDS: MAG HYDROX/AL HYDROX/SIMETH 30 ML UNIT-DOSE CUP PO PRN (13:43)
[2020-04-04] MEDS: MELATONIN 5 MG TABLETS PO SCH (22:22)
[2020-04-04] MEDS: MAGNESIUM HYDROX 2400MG/30ML ORAL SUSPENSION 30 ML CUP PO PRN (22:24)
[2020-04-04] MEDS: THIAMINE HCL 100 MG TABLET (FP) PO SCH (22:25)
[2020-04-04] MEDS: HYDROCORTISONE 2.5% TOPICAL CREAM 30 GM TUBE RC SCH (22:29)
[2020-04-05] MEDS ORDERED: chlordiazePOXIDE HCL 10 MG CAPSULE PO PRN
[2020-04-05] MEDS: ARTIFICIAL TEARS (POLYVINYL ALCOHOL) OPTH DROPS OU SCH ×3 (06:05→22:14)
[2020-04-05] MEDS: chlordiazePOXIDE HCL 10 MG CAPSULE PO SCH ×4 (06:05→22:14)
[2020-04-05] MEDS: ACETAMINOPHEN 325 MG TABLET (FP) PO PRN (06:06)
[2020-04-05] MEDS: NAPROXEN 500 MG TABLET PO SCH ×2 (10:23→22:14)
[2020-04-05] MEDS: NICOTINE 7 MG/24 HOURS TOPICAL PATCH TD SCH (10:23)
[2020-04-05] MEDS: PANTOPRAZOLE 40 MG TABLET PO SCH (10:23)
[2020-04-05] MEDS: PRENATAL VITAMINS W/ FOLIC ACID TABLET (FP) PO SCH (10:23)
[2020-04-05] MEDS: FLUTICASONE PROP 0.05% 16 GM NASAL SPRAY NS SCH ×2 (10:24→22:15)
[2020-04-05] MEDS: MAGNESIUM HYDROX 2400MG/30ML ORAL SUSPENSION 30 ML CUP PO PRN ×2 (10:27→22:14)
[2020-04-05] MEDS: LIDOCAINE VISCOUS 2% ORAL/TOP 20 ML UNIT-DOSE CUP MM PRN (14:23)
[2020-04-05] MEDS: MENTHOL/PHENOL 1 EACH UD MM PRN (14:24)
[2020-04-05] MEDS: LIDOCAINE 5% TOPICAL PATCH TP SCH (15:17)
[2020-04-05] MEDS: amLODIPine BESYLATE 5 MG TABLET (FP) PO SCH (17:32)
[2020-04-05] MEDS ORDERED: SENNOSIDES 8.6MG TABLET (FP) PO SCH (22:00)
[2020-04-05] MEDS: THIAMINE HCL 100 MG TABLET (FP) PO SCH (22:14)
[2020-04-05] MEDS: LIDOCAINE PATCH REMOVAL MC SCH (22:14)
[2020-04-05] MEDS: MELATONIN 5 MG TABLETS PO SCH (22:14)
[2020-04-05] MEDS: HYDROCORTISONE 2.5% TOPICAL CREAM 30 GM TUBE RC SCH (22:44)
[2020-04-06] MEDS: chlordiazePOXIDE HCL 10 MG CAPSULE PO SCH ×2 (05:17→19:13)
[2020-04-06] MEDS: ARTIFICIAL TEARS (POLYVINYL ALCOHOL) OPTH DROPS OU SCH ×3 (05:17→22:31)
[2020-04-06] MEDS: ACETAMINOPHEN 325 MG TABLET (FP) PO PRN (05:17)
[2020-04-06] MEDS: PANTOPRAZOLE 40 MG TABLET PO SCH (06:32)
[2020-04-06] MEDS: FLUTICASONE PROP 0.05% 16 GM NASAL SPRAY NS SCH ×2 (09:45→22:31)
[2020-04-06] MEDS: NICOTINE 7 MG/24 HOURS TOPICAL PATCH TD SCH (09:46)
[2020-04-06] MEDS: NAPROXEN 500 MG TABLET PO SCH ×2 (09:46→22:25)
[2020-04-06] MEDS: LIDOCAINE 5% TOPICAL PATCH TP SCH (09:46)
[2020-04-06] MEDS: PRENATAL VITAMINS W/ FOLIC ACID TABLET (FP) PO SCH (09:47)
[2020-04-06] MEDS: amLODIPine BESYLATE 5 MG TABLET (FP) PO SCH (09:47)
[2020-04-06] MEDS: MENTHOL/PHENOL 1 EACH UD MM PRN (09:51)
[2020-04-06] MEDS: MAGNESIUM HYDROX 2400MG/30ML ORAL SUSPENSION 30 ML CUP PO PRN ×2 (09:51→22:26)
[2020-04-06] MEDS ORDERED: SENNOSIDES 8.6MG TABLET (FP) PO ONE (10:45)
[2020-04-06] MEDS: LIDOCAINE VISCOUS 2% ORAL/TOP 20 ML UNIT-DOSE CUP MM PRN (10:59)
[2020-04-06] MEDS: MAG HYDROX/AL HYDROX/SIMETH 30 ML UNIT-DOSE CUP PO PRN (15:44)
[2020-04-06] MEDS: THIAMINE HCL 100 MG TABLET (FP) PO SCH (22:25)
[2020-04-06] MEDS: SENNOSIDES 8.6MG TABLET (FP) PO SCH (22:25)
[2020-04-06] MEDS: MELATONIN 5 MG TABLETS PO SCH (22:26)
[2020-04-06] MEDS: HYDROCORTISONE 2.5% TOPICAL CREAM 30 GM TUBE RC SCH (22:31)
[2020-04-06] MEDS: LIDOCAINE PATCH REMOVAL MC SCH (22:31)
[2020-04-06] MEDS ORDERED: guaiFENesin 200 MG/10 ML 10 ML UNIT-DOSE CUPS PO PRN (23:37)
[2020-04-07] MEDS ORDERED: chlordiazePOXIDE HCL 10 MG CAPSULE PO ONE (05:00)
[2020-04-07] MEDS: ARTIFICIAL TEARS (POLYVINYL ALCOHOL) OPTH DROPS OU SCH (05:56)
[2020-04-07] MEDS: ACETAMINOPHEN 325 MG TABLET (FP) PO PRN (05:58)
[2020-04-07] MEDS: PANTOPRAZOLE 40 MG TABLET PO SCH (07:37)
[2020-04-07] MEDS: amLODIPine BESYLATE 5 MG TABLET (FP) PO SCH (10:29)
[2020-04-07] MEDS: NICOTINE 7 MG/24 HOURS TOPICAL PATCH TD SCH (10:29)
[2020-04-07] MEDS: NAPROXEN 500 MG TABLET PO SCH (10:29)
[2020-04-07] MEDS: PRENATAL VITAMINS W/ FOLIC ACID TABLET (FP) PO SCH (10:30)
[2020-04-07] MEDS: FLUTICASONE PROP 0.05% 16 GM NASAL SPRAY NS SCH (10:30)
[2020-04-07] MEDS: LIDOCAINE 5% TOPICAL PATCH TP SCH (10:30)
[2020-04-07] MEDS: SENNOSIDES 8.6MG TABLET (FP) PO SCH (10:31)
[2020-04-07] MEDS: MENTHOL/PHENOL 1 EACH UD MM PRN (10:31)
[2020-04-07] MEDS: LIDOCAINE VISCOUS 2% ORAL/TOP 20 ML UNIT-DOSE CUP MM PRN (10:33)
[2020-04-07 11:40] VITALS: BP 122/79; PULSE 89; TEMP 98.9
== END 2020-04-07 12:40 | disposition other institution (70) | DRG 774 ==
LOC: YASAS 12:02 → Y6N 13:36
PROVIDERS: ADMIT Allergy & Immunology; ATTEND Allergy & Immunology
PROC: HZ2ZZZZ Detoxification Services for Substance Abuse Treatment (ICD-10-PCS; principal; 2020-04-02)
DX: F10.230 Alcohol dependence with withdrawal, uncomplicated (principal); F14.20 Cocaine dependence, uncomplicated; F12.20 Cannabis dependence, uncomplicated; F17.210 Nicotine dependence, cigarettes, uncomplicated; I10 Essential (primary) hypertension; R00.0 Tachycardia, unspecified; M54.5 Low back pain; G89.29 Other chronic pain; K45.8 Other specified abdominal hernia without obstruction or gangrene; K21.9 Gastro-esophageal reflux disease without esophagitis; N17.9 Acute kidney failure, unspecified; R76.8 Other specified abnormal immunological findings in serum; Z88.0 Allergy status to penicillin; Z88.8 Allergy status to other drugs, medicaments and biological substances; Z86.19 Personal history of other infectious and parasitic diseases; Z59.0 Homelessness
CPT/HCPCS: 36415; 80053; 82540; 84520; 85027; 86593; 86780; C9803; U0003

== ENCOUNTER 2020-04-07 12:47 | Inpatient (IN) | payer OTHER ==
[2020-04-07] MEDS: ARTIFICIAL TEARS (POLYVINYL ALCOHOL) OPTH DROPS OU SCH ×2 (14:37→22:43)
[2020-04-07] MEDS ORDERED: hydrOXYzine PAMOATE 25 MG CAPSULE (FP) PO PRN (14:47)
[2020-04-07] MEDS ORDERED: P-EPHED 60MG/TRIPROLIDI 2.5MG TABLET PO PRN (14:47)
[2020-04-07] MEDS ORDERED: NICOTINE POLACRILEX 2 MG GUM BUC PRN (14:47)
[2020-04-07] MEDS ORDERED: LOPERAMIDE HCL 2 MG CAPSULE PO PRN (14:47)
[2020-04-07] MEDS ORDERED: MAGNESIUM CITRATE 300 ML BOTTLE PO PRN (14:47)
[2020-04-07] MEDS ORDERED: ACETAMINOPHEN 325 MG TABLET (FP) PO PRN (14:47)
[2020-04-07] MEDS ORDERED: FLUTICASONE PROP 0.05% 16 GM NASAL SPRAY NS SCH (22:00)
[2020-04-07] MEDS: THIAMINE HCL 100 MG TABLET (FP) PO SCH (22:42)
[2020-04-07] MEDS: MAGNESIUM HYDROX 2400MG/30ML ORAL SUSPENSION 30 ML CUP PO PRN (22:42)
[2020-04-07] MEDS: ACETAMINOPHEN 325 MG TABLET (FP) PO PRN (22:42)
[2020-04-07] MEDS: MELATONIN 5 MG TABLETS PO SCH (22:43)
[2020-04-07] MEDS: FLUTICASONE PROP 0.05% 16 GM NASAL SPRAY NS SCH (22:43)
[2020-04-08] MEDS: ACETAMINOPHEN 325 MG TABLET (FP) PO PRN ×2 (05:42→14:05)
[2020-04-08] MEDS: ARTIFICIAL TEARS (POLYVINYL ALCOHOL) OPTH DROPS OU SCH ×3 (05:44→22:03)
[2020-04-08] MEDS: MENTHOL/PHENOL 1 EACH UD MM PRN ×2 (07:03→22:02)
[2020-04-08] MEDS: FLUTICASONE PROP 0.05% 16 GM NASAL SPRAY NS SCH ×2 (10:37→21:58)
[2020-04-08] MEDS: PRENATAL VITAMINS W/ FOLIC ACID TABLET (FP) PO SCH (10:37)
[2020-04-08] MEDS: NICOTINE 7 MG/24 HOURS TOPICAL PATCH TD SCH (10:37)
[2020-04-08] MEDS: PANTOPRAZOLE 40 MG TABLET PO SCH (10:37)
[2020-04-08] MEDS: NAPROXEN 500 MG TABLET PO PRN ×2 (10:39→21:57)
[2020-04-08] MEDS: MAGNESIUM HYDROX 2400MG/30ML ORAL SUSPENSION 30 ML CUP PO PRN ×2 (10:39→21:59)
[2020-04-08] MEDS: MAG HYDROX/ALH/SMC/DPHA/LIDO 180 ML MOUTHWASH MM SCH (19:11)
[2020-04-08] MEDS: SENNOSIDES 8.6MG TABLET (FP) PO SCH (21:57)
[2020-04-08] MEDS: MELATONIN 5 MG TABLETS PO SCH (21:58)
[2020-04-08] MEDS: THIAMINE HCL 100 MG TABLET (FP) PO SCH (21:58)
[2020-04-08] MEDS: guaiFENesin 200 MG/10 ML 10 ML UNIT-DOSE CUPS PO PRN (21:59)
[2020-04-08] MEDS: LIDOCAINE PATCH REMOVAL MC SCH (22:03)
[2020-04-09] MEDS: MAG HYDROX/ALH/SMC/DPHA/LIDO 180 ML MOUTHWASH MM SCH ×3 (02:51→15:53)
[2020-04-09] MEDS: ACETAMINOPHEN 325 MG TABLET (FP) PO PRN ×2 (06:30→15:49)
[2020-04-09] MEDS: ARTIFICIAL TEARS (POLYVINYL ALCOHOL) OPTH DROPS OU SCH ×3 (06:34→21:22)
[2020-04-09] MEDS: MENTHOL/PHENOL 1 EACH UD MM PRN (06:34)
[2020-04-09] MEDS: NAPROXEN 500 MG TABLET PO PRN ×2 (10:37→21:20)
[2020-04-09] MEDS: PRENATAL VITAMINS W/ FOLIC ACID TABLET (FP) PO SCH (10:37)
[2020-04-09] MEDS: LIDOCAINE 5% TOPICAL PATCH TP SCH (10:38)
[2020-04-09] MEDS: PANTOPRAZOLE 40 MG TABLET PO SCH (10:38)
[2020-04-09] MEDS: NICOTINE 7 MG/24 HOURS TOPICAL PATCH TD SCH (10:38)
[2020-04-09] MEDS: FLUTICASONE PROP 0.05% 16 GM NASAL SPRAY NS SCH ×2 (10:38→21:23)
[2020-04-09] MEDS: SENNOSIDES 8.6MG TABLET (FP) PO SCH ×2 (10:38→21:23)
[2020-04-09] MEDS: CARBAMIDE PEROXIDE 6.5% OTIC 15 ML BOTTLE AD SCH ×2 (12:50→21:22)
[2020-04-09] MEDS ORDERED: PT OWN MED DRAWER 7, Y5N ONE ×2 (12:56→15:09)
[2020-04-09] MEDS: LIDOCAINE VISCOUS 2% ORAL/TOP 20 ML UNIT-DOSE CUP MM PRN (15:48)
[2020-04-09] MEDS: guaiFENesin 200 MG/10 ML 10 ML UNIT-DOSE CUPS PO PRN ×2 (15:48→21:20)
[2020-04-09] MEDS: MELATONIN 5 MG TABLETS PO SCH (21:19)
[2020-04-09] MEDS: THIAMINE HCL 100 MG TABLET (FP) PO SCH (21:19)
[2020-04-09] MEDS: MAGNESIUM HYDROX 2400MG/30ML ORAL SUSPENSION 30 ML CUP PO PRN (21:20)
[2020-04-09] MEDS: LIDOCAINE PATCH REMOVAL MC SCH (21:22)
[2020-04-10] MEDS: ARTIFICIAL TEARS (POLYVINYL ALCOHOL) OPTH DROPS OU SCH ×3 (06:17→21:30)
[2020-04-10] MEDS: PANTOPRAZOLE 40 MG TABLET PO SCH (06:17)
[2020-04-10] MEDS: MENTHOL/PHENOL 1 EACH UD MM PRN (06:19)
[2020-04-10] MEDS: ACETAMINOPHEN 325 MG TABLET (FP) PO PRN (06:20)
[2020-04-10] MEDS: guaiFENesin 200 MG/10 ML 10 ML UNIT-DOSE CUPS PO PRN ×2 (06:20→21:30)
[2020-04-10] MEDS ORDERED: PT OWN MED DRAWER 7, Y5N ONE ×2 (09:16→21:29)
[2020-04-10] MEDS: LIDOCAINE 5% TOPICAL PATCH TP SCH (10:38)
[2020-04-10] MEDS: SENNOSIDES 8.6MG TABLET (FP) PO SCH ×2 (10:38→21:29)
[2020-04-10] MEDS: FLUTICASONE PROP 0.05% 16 GM NASAL SPRAY NS SCH ×2 (10:38→21:31)
[2020-04-10] MEDS: PRENATAL VITAMINS W/ FOLIC ACID TABLET (FP) PO SCH (10:38)
[2020-04-10] MEDS: NICOTINE 7 MG/24 HOURS TOPICAL PATCH TD SCH (10:39)
[2020-04-10] MEDS: LIDOCAINE VISCOUS 2% ORAL/TOP 20 ML UNIT-DOSE CUP MM PRN (10:40)
[2020-04-10] MEDS: NAPROXEN 500 MG TABLET PO PRN ×2 (10:42→21:29)
[2020-04-10] MEDS: LORATADINE 10 MG TABLET PO PRN (10:45)
[2020-04-10] MEDS: CARBAMIDE PEROXIDE 6.5% OTIC 15 ML BOTTLE AD SCH ×2 (10:45→21:31)
[2020-04-10] MEDS: THIAMINE HCL 100 MG TABLET (FP) PO SCH (21:27)
[2020-04-10] MEDS: MELATONIN 5 MG TABLETS PO SCH (21:28)
[2020-04-10] MEDS: MAGNESIUM HYDROX 2400MG/30ML ORAL SUSPENSION 30 ML CUP PO PRN (21:30)
[2020-04-10] MEDS: LIDOCAINE PATCH REMOVAL MC SCH (21:31)
[2020-04-11] MEDS: ARTIFICIAL TEARS (POLYVINYL ALCOHOL) OPTH DROPS OU SCH ×3 (06:32→21:59)
[2020-04-11] MEDS: PANTOPRAZOLE 40 MG TABLET PO SCH (06:32)
[2020-04-11] MEDS: MENTHOL/PHENOL 1 EACH UD MM PRN (06:36)
[2020-04-11] MEDS: guaiFENesin 200 MG/10 ML 10 ML UNIT-DOSE CUPS PO PRN (06:36)
[2020-04-11] MEDS: ACETAMINOPHEN 325 MG TABLET (FP) PO PRN ×2 (06:37→13:25)
[2020-04-11] MEDS ORDERED: PT OWN MED DRAWER 7, Y5N ONE ×2 (08:52→21:58)
[2020-04-11] MEDS: NICOTINE 7 MG/24 HOURS TOPICAL PATCH TD SCH (10:16)
[2020-04-11] MEDS: FLUTICASONE PROP 0.05% 16 GM NASAL SPRAY NS SCH ×2 (10:18→22:00)
[2020-04-11] MEDS: NAPROXEN 500 MG TABLET PO PRN ×2 (10:18→21:57)
[2020-04-11] MEDS: LIDOCAINE 5% TOPICAL PATCH TP SCH (10:18)
[2020-04-11] MEDS: CARBAMIDE PEROXIDE 6.5% OTIC 15 ML BOTTLE AD SCH ×2 (10:18→22:00)
[2020-04-11] MEDS: SENNOSIDES 8.6MG TABLET (FP) PO SCH ×2 (10:18→21:58)
[2020-04-11] MEDS: PRENATAL VITAMINS W/ FOLIC ACID TABLET (FP) PO SCH (10:19)
[2020-04-11] MEDS: LIDOCAINE VISCOUS 2% ORAL/TOP 20 ML UNIT-DOSE CUP MM PRN (10:19)
[2020-04-11] MEDS: LORATADINE 10 MG TABLET PO PRN (10:22)
[2020-04-11] MEDS: MAG HYDROX/AL HYDROX/SIMETH 30 ML UNIT-DOSE CUP PO PRN (14:01)
[2020-04-11] MEDS: THIAMINE HCL 100 MG TABLET (FP) PO SCH (21:57)
[2020-04-11] MEDS: MAGNESIUM HYDROX 2400MG/30ML ORAL SUSPENSION 30 ML CUP PO PRN (21:58)
[2020-04-11] MEDS: LIDOCAINE PATCH REMOVAL MC SCH (22:00)
[2020-04-11] MEDS: MELATONIN 5 MG TABLETS PO SCH (22:00)
[2020-04-12] MEDS: ARTIFICIAL TEARS (POLYVINYL ALCOHOL) OPTH DROPS OU SCH ×3 (06:23→21:50)
[2020-04-12] MEDS: ACETAMINOPHEN 325 MG TABLET (FP) PO PRN ×2 (06:23→13:58)
[2020-04-12] MEDS: guaiFENesin 200 MG/10 ML 10 ML UNIT-DOSE CUPS PO PRN ×2 (06:23→21:46)
[2020-04-12] MEDS: PANTOPRAZOLE 40 MG TABLET PO SCH (06:23)
[2020-04-12] MEDS: MENTHOL/PHENOL 1 EACH UD MM PRN ×2 (06:28→11:08)
[2020-04-12] MEDS ORDERED: PT OWN MED DRAWER 7, Y5N ONE ×2 (08:57→18:56)
[2020-04-12] MEDS: PRENATAL VITAMINS W/ FOLIC ACID TABLET (FP) PO SCH (09:43)
[2020-04-12] MEDS: LIDOCAINE 5% TOPICAL PATCH TP SCH (09:43)
[2020-04-12] MEDS: SENNOSIDES 8.6MG TABLET (FP) PO SCH ×2 (09:43→21:45)
[2020-04-12] MEDS: FLUTICASONE PROP 0.05% 16 GM NASAL SPRAY NS SCH ×2 (09:43→21:50)
[2020-04-12] MEDS: NAPROXEN 500 MG TABLET PO PRN ×2 (09:43→21:44)
[2020-04-12] MEDS: CARBAMIDE PEROXIDE 6.5% OTIC 15 ML BOTTLE AD SCH ×2 (09:44→21:50)
[2020-04-12] MEDS: LIDOCAINE VISCOUS 2% ORAL/TOP 20 ML UNIT-DOSE CUP MM PRN ×2 (09:44→21:48)
[2020-04-12] MEDS: NICOTINE 7 MG/24 HOURS TOPICAL PATCH TD SCH (09:44)
[2020-04-12] MEDS: THIAMINE HCL 100 MG TABLET (FP) PO SCH (21:43)
[2020-04-12] MEDS: MELATONIN 5 MG TABLETS PO SCH (21:46)
[2020-04-12] MEDS: MAGNESIUM HYDROX 2400MG/30ML ORAL SUSPENSION 30 ML CUP PO PRN (21:46)
[2020-04-12] MEDS: LIDOCAINE PATCH REMOVAL MC SCH (21:50)
[2020-04-13] MEDS: MENTHOL/PHENOL 1 EACH UD MM PRN (06:11)
[2020-04-13] MEDS: ACETAMINOPHEN 325 MG TABLET (FP) PO PRN ×2 (06:11→13:52)
[2020-04-13] MEDS: ARTIFICIAL TEARS (POLYVINYL ALCOHOL) OPTH DROPS OU SCH ×3 (06:12→21:43)
[2020-04-13] MEDS: PANTOPRAZOLE 40 MG TABLET PO SCH (06:12)
[2020-04-13] MEDS: guaiFENesin 200 MG/10 ML 10 ML UNIT-DOSE CUPS PO PRN (06:12)
[2020-04-13] MEDS ORDERED: PT OWN MED DRAWER 7, Y5N ONE (09:22)
[2020-04-13] MEDS: LIDOCAINE 5% TOPICAL PATCH TP SCH (10:33)
[2020-04-13] MEDS: FLUTICASONE PROP 0.05% 16 GM NASAL SPRAY NS SCH (10:33)
[2020-04-13] MEDS: PRENATAL VITAMINS W/ FOLIC ACID TABLET (FP) PO SCH (10:34)
[2020-04-13] MEDS: SENNOSIDES 8.6MG TABLET (FP) PO SCH ×2 (10:34→21:44)
[2020-04-13] MEDS: NICOTINE 7 MG/24 HOURS TOPICAL PATCH TD SCH (10:34)
[2020-04-13] MEDS: LIDOCAINE VISCOUS 2% ORAL/TOP 20 ML UNIT-DOSE CUP MM PRN (10:35)
[2020-04-13] MEDS: NAPROXEN 500 MG TABLET PO PRN (10:36)
[2020-04-13] MEDS: CARBAMIDE PEROXIDE 6.5% OTIC 15 ML BOTTLE AD SCH ×2 (11:26→21:43)
[2020-04-13] MEDS: MAG HYDROX/AL HYDROX/SIMETH 30 ML UNIT-DOSE CUP PO PRN (18:16)
[2020-04-13] MEDS: MELATONIN 5 MG TABLETS PO SCH (21:44)
[2020-04-13] MEDS: THIAMINE HCL 100 MG TABLET (FP) PO SCH (21:44)
[2020-04-13] MEDS: LIDOCAINE PATCH REMOVAL MC SCH (21:45)
[2020-04-14] MEDS: MENTHOL/PHENOL 1 EACH UD MM PRN ×2 (05:48→14:56)
[2020-04-14] MEDS: ACETAMINOPHEN 325 MG TABLET (FP) PO PRN ×2 (05:49→14:54)
[2020-04-14] MEDS: guaiFENesin 200 MG/10 ML 10 ML UNIT-DOSE CUPS PO PRN ×3 (05:49→21:42)
[2020-04-14] MEDS: ARTIFICIAL TEARS (POLYVINYL ALCOHOL) OPTH DROPS OU SCH ×3 (05:50→21:44)
[2020-04-14] MEDS: PANTOPRAZOLE 40 MG TABLET PO SCH (05:52)
[2020-04-14] MEDS ORDERED: PT OWN MED DRAWER 7, Y5N ONE ×3 (09:12→14:50)
[2020-04-14] MEDS: NAPROXEN 500 MG TABLET PO PRN ×2 (10:51→21:41)
[2020-04-14] MEDS: LIDOCAINE VISCOUS 2% ORAL/TOP 20 ML UNIT-DOSE CUP MM PRN ×2 (10:52→21:43)
[2020-04-14] MEDS: LIDOCAINE 5% TOPICAL PATCH TP SCH (10:52)
[2020-04-14] MEDS: FLUTICASONE PROP 0.05% 16 GM NASAL SPRAY NS SCH (10:53)
[2020-04-14] MEDS: PRENATAL VITAMINS W/ FOLIC ACID TABLET (FP) PO SCH (10:53)
[2020-04-14] MEDS: CARBAMIDE PEROXIDE 6.5% OTIC 15 ML BOTTLE AD SCH ×2 (10:53→21:44)
[2020-04-14] MEDS: SENNOSIDES 8.6MG TABLET (FP) PO SCH ×2 (10:54→21:40)
[2020-04-14] MEDS: BENZOCAINE 28 GM HEMORRHOIDAL OINTMENT RC PRN (10:55)
[2020-04-14] MEDS: HYDROCORTISONE 1% TOPICAL CREAM 30 GM TUBE TP SCH (10:58)
[2020-04-14] MEDS: NICOTINE 7 MG/24 HOURS TOPICAL PATCH TD SCH (11:11)
[2020-04-14] MEDS: SODIUM CHLORIDE NASAL SPRAY 44 ML BOTTLE NS PRN (14:50)
[2020-04-14] MEDS: THIAMINE HCL 100 MG TABLET (FP) PO SCH (21:40)
[2020-04-14] MEDS: MELATONIN 5 MG TABLETS PO SCH (21:40)
[2020-04-14] MEDS: MAGNESIUM HYDROX 2400MG/30ML ORAL SUSPENSION 30 ML CUP PO PRN (21:42)
[2020-04-14] MEDS: LIDOCAINE PATCH REMOVAL MC SCH (21:44)
[2020-04-15] MEDS: ACETAMINOPHEN 325 MG TABLET (FP) PO PRN ×2 (06:25→17:36)
[2020-04-15] MEDS: guaiFENesin 200 MG/10 ML 10 ML UNIT-DOSE CUPS PO PRN ×2 (06:25→21:24)
[2020-04-15] MEDS: ARTIFICIAL TEARS (POLYVINYL ALCOHOL) OPTH DROPS OU SCH ×3 (06:25→21:23)
[2020-04-15] MEDS: PANTOPRAZOLE 40 MG TABLET PO SCH (06:25)
[2020-04-15] MEDS ORDERED: PT OWN MED DRAWER 7, Y5N ONE ×3 (09:00→21:22)
[2020-04-15] MEDS: FLUTICASONE PROP 0.05% 16 GM NASAL SPRAY NS SCH (09:59)
[2020-04-15] MEDS: CARBAMIDE PEROXIDE 6.5% OTIC 15 ML BOTTLE AD SCH ×2 (09:59→21:24)
[2020-04-15] MEDS: HYDROCORTISONE 1% TOPICAL CREAM 30 GM TUBE TP SCH (10:00)
[2020-04-15] MEDS: SENNOSIDES 8.6MG TABLET (FP) PO SCH ×2 (10:00→21:18)
[2020-04-15] MEDS: LIDOCAINE 5% TOPICAL PATCH TP SCH (10:00)
[2020-04-15] MEDS: NICOTINE 7 MG/24 HOURS TOPICAL PATCH TD SCH (10:00)
[2020-04-15] MEDS: PRENATAL VITAMINS W/ FOLIC ACID TABLET (FP) PO SCH (10:00)
[2020-04-15] MEDS: NAPROXEN 500 MG TABLET PO PRN ×2 (10:02→21:18)
[2020-04-15] MEDS: LIDOCAINE VISCOUS 2% ORAL/TOP 20 ML UNIT-DOSE CUP MM PRN ×2 (10:03→21:30)
[2020-04-15] MEDS: BENZOCAINE 28 GM HEMORRHOIDAL OINTMENT RC PRN (10:03)
[2020-04-15] MEDS: DOXYCYCLINE HYCLATE 100 MG TABLET PO SCH (17:03)
[2020-04-15] MEDS: MELATONIN 5 MG TABLETS PO SCH (21:19)
[2020-04-15] MEDS: THIAMINE HCL 100 MG TABLET (FP) PO SCH (21:19)
[2020-04-15] MEDS: MAGNESIUM HYDROX 2400MG/30ML ORAL SUSPENSION 30 ML CUP PO PRN (21:20)
[2020-04-15] MEDS: LIDOCAINE PATCH REMOVAL MC SCH (21:20)
[2020-04-16] MEDS: guaiFENesin 200 MG/10 ML 10 ML UNIT-DOSE CUPS PO PRN ×2 (06:44→21:00)
[2020-04-16] MEDS: MENTHOL/PHENOL 1 EACH UD MM PRN (06:44)
[2020-04-16] MEDS: ACETAMINOPHEN 325 MG TABLET (FP) PO PRN ×2 (06:45→18:11)
[2020-04-16] MEDS: ARTIFICIAL TEARS (POLYVINYL ALCOHOL) OPTH DROPS OU SCH ×3 (06:45→21:02)
[2020-04-16] MEDS: PANTOPRAZOLE 40 MG TABLET PO SCH (06:45)
[2020-04-16] MEDS: PRENATAL VITAMINS W/ FOLIC ACID TABLET (FP) PO SCH (10:19)
[2020-04-16] MEDS: SENNOSIDES 8.6MG TABLET (FP) PO SCH ×2 (10:19→21:00)
[2020-04-16] MEDS: DOXYCYCLINE HYCLATE 100 MG TABLET PO SCH ×2 (10:19→18:10)
[2020-04-16] MEDS: LIDOCAINE 5% TOPICAL PATCH TP SCH (10:19)
[2020-04-16] MEDS: NICOTINE 7 MG/24 HOURS TOPICAL PATCH TD SCH (10:19)
[2020-04-16] MEDS: FLUTICASONE PROP 0.05% 16 GM NASAL SPRAY NS SCH (10:20)
[2020-04-16] MEDS: CARBAMIDE PEROXIDE 6.5% OTIC 15 ML BOTTLE AD SCH ×2 (10:20→21:03)
[2020-04-16] MEDS: HYDROCORTISONE 1% TOPICAL CREAM 30 GM TUBE TP SCH (10:20)
[2020-04-16] MEDS: LIDOCAINE VISCOUS 2% ORAL/TOP 20 ML UNIT-DOSE CUP MM PRN ×2 (10:21→21:00)
[2020-04-16] MEDS: BENZOCAINE 28 GM HEMORRHOIDAL OINTMENT RC PRN (10:21)
[2020-04-16] MEDS: NAPROXEN 500 MG TABLET PO PRN ×2 (10:23→20:59)
[2020-04-16] MEDS: SODIUM CHLORIDE NASAL SPRAY 44 ML BOTTLE NS PRN (14:11)
[2020-04-16] MEDS: MAGNESIUM HYDROX 2400MG/30ML ORAL SUSPENSION 30 ML CUP PO PRN (21:00)
[2020-04-16] MEDS: THIAMINE HCL 100 MG TABLET (FP) PO SCH (21:02)
[2020-04-16] MEDS: LIDOCAINE PATCH REMOVAL MC SCH (21:03)
[2020-04-16] MEDS: MELATONIN 5 MG TABLETS PO SCH (21:03)
[2020-04-17] MEDS: PANTOPRAZOLE 40 MG TABLET PO SCH (05:48)
[2020-04-17] MEDS: guaiFENesin 200 MG/10 ML 10 ML UNIT-DOSE CUPS PO PRN ×3 (05:49→21:26)
[2020-04-17] MEDS: ACETAMINOPHEN 325 MG TABLET (FP) PO PRN ×2 (05:49→13:53)
[2020-04-17] MEDS: ARTIFICIAL TEARS (POLYVINYL ALCOHOL) OPTH DROPS OU SCH ×3 (05:49→21:28)
[2020-04-17] MEDS: NAPROXEN 500 MG TABLET PO PRN ×2 (10:25→21:26)
[2020-04-17] MEDS: DOXYCYCLINE HYCLATE 100 MG TABLET PO SCH ×2 (10:25→17:48)
[2020-04-17] MEDS: LIDOCAINE VISCOUS 2% ORAL/TOP 20 ML UNIT-DOSE CUP MM PRN ×2 (10:25→21:27)
[2020-04-17] MEDS: PRENATAL VITAMINS W/ FOLIC ACID TABLET (FP) PO SCH (10:25)
[2020-04-17] MEDS: CARBAMIDE PEROXIDE 6.5% OTIC 15 ML BOTTLE AD SCH ×2 (10:26→21:28)
[2020-04-17] MEDS: SODIUM CHLORIDE NASAL SPRAY 44 ML BOTTLE NS PRN (10:26)
[2020-04-17] MEDS: FLUTICASONE PROP 0.05% 16 GM NASAL SPRAY NS SCH (10:26)
[2020-04-17] MEDS: HYDROCORTISONE 1% TOPICAL CREAM 30 GM TUBE TP SCH (10:26)
[2020-04-17] MEDS: LIDOCAINE 5% TOPICAL PATCH TP SCH (10:27)
[2020-04-17] MEDS: NICOTINE 7 MG/24 HOURS TOPICAL PATCH TD SCH (10:27)
[2020-04-17] MEDS: SENNOSIDES 8.6MG TABLET (FP) PO SCH ×2 (10:27→21:26)
[2020-04-17] MEDS: MENTHOL/PHENOL 1 EACH UD MM PRN (13:55)
[2020-04-17] MEDS: THIAMINE HCL 100 MG TABLET (FP) PO SCH (21:26)
[2020-04-17] MEDS: MAGNESIUM HYDROX 2400MG/30ML ORAL SUSPENSION 30 ML CUP PO PRN (21:26)
[2020-04-17] MEDS: LIDOCAINE PATCH REMOVAL MC SCH (21:28)
[2020-04-17] MEDS: MELATONIN 5 MG TABLETS PO SCH (21:28)
[2020-04-18] MEDS: MENTHOL/PHENOL 1 EACH UD MM PRN (06:48)
[2020-04-18] MEDS: ARTIFICIAL TEARS (POLYVINYL ALCOHOL) OPTH DROPS OU SCH ×3 (06:48→21:11)
[2020-04-18] MEDS: guaiFENesin 200 MG/10 ML 10 ML UNIT-DOSE CUPS PO PRN ×2 (06:49→21:13)
[2020-04-18] MEDS: PANTOPRAZOLE 40 MG TABLET PO SCH (06:49)
[2020-04-18] MEDS: ACETAMINOPHEN 325 MG TABLET (FP) PO PRN ×2 (06:49→14:05)
[2020-04-18] MEDS: DOXYCYCLINE HYCLATE 100 MG TABLET PO SCH ×2 (10:03→18:59)
[2020-04-18] MEDS: NAPROXEN 500 MG TABLET PO PRN ×2 (10:03→21:11)
[2020-04-18] MEDS: PRENATAL VITAMINS W/ FOLIC ACID TABLET (FP) PO SCH (10:03)
[2020-04-18] MEDS: NICOTINE 7 MG/24 HOURS TOPICAL PATCH TD SCH (10:04)
[2020-04-18] MEDS: FLUTICASONE PROP 0.05% 16 GM NASAL SPRAY NS SCH (10:04)
[2020-04-18] MEDS: LIDOCAINE 5% TOPICAL PATCH TP SCH (10:04)
[2020-04-18] MEDS: HYDROCORTISONE 1% TOPICAL CREAM 30 GM TUBE TP SCH (10:04)
[2020-04-18] MEDS: CARBAMIDE PEROXIDE 6.5% OTIC 15 ML BOTTLE AD SCH ×2 (10:04→21:11)
[2020-04-18] MEDS: SENNOSIDES 8.6MG TABLET (FP) PO SCH ×2 (10:04→21:11)
[2020-04-18] MEDS: LIDOCAINE VISCOUS 2% ORAL/TOP 20 ML UNIT-DOSE CUP MM PRN ×2 (10:07→21:12)
[2020-04-18] MEDS: SODIUM CHLORIDE NASAL SPRAY 44 ML BOTTLE NS PRN (14:04)
[2020-04-18] MEDS: BENZOCAINE 28 GM HEMORRHOIDAL OINTMENT RC PRN (14:05)
[2020-04-18] MEDS: MELATONIN 5 MG TABLETS PO SCH (21:11)
[2020-04-18] MEDS: THIAMINE HCL 100 MG TABLET (FP) PO SCH (21:11)
[2020-04-18] MEDS: MAGNESIUM HYDROX 2400MG/30ML ORAL SUSPENSION 30 ML CUP PO PRN (21:14)
[2020-04-18] MEDS: LIDOCAINE PATCH REMOVAL MC SCH (21:15)
[2020-04-19] MEDS: ARTIFICIAL TEARS (POLYVINYL ALCOHOL) OPTH DROPS OU SCH ×3 (06:33→21:57)
[2020-04-19] MEDS: ACETAMINOPHEN 325 MG TABLET (FP) PO PRN ×2 (06:33→15:32)
[2020-04-19] MEDS: PANTOPRAZOLE 40 MG TABLET PO SCH (06:33)
[2020-04-19] MEDS: guaiFENesin 200 MG/10 ML 10 ML UNIT-DOSE CUPS PO PRN ×3 (06:33→21:53)
[2020-04-19] MEDS: MENTHOL/PHENOL 1 EACH UD MM PRN ×2 (06:34→15:33)
[2020-04-19] MEDS: PRENATAL VITAMINS W/ FOLIC ACID TABLET (FP) PO SCH (10:13)
[2020-04-19] MEDS: CARBAMIDE PEROXIDE 6.5% OTIC 15 ML BOTTLE AD SCH ×2 (10:13→21:57)
[2020-04-19] MEDS: LIDOCAINE 5% TOPICAL PATCH TP SCH (10:13)
[2020-04-19] MEDS: HYDROCORTISONE 1% TOPICAL CREAM 30 GM TUBE TP SCH (10:14)
[2020-04-19] MEDS: NICOTINE 7 MG/24 HOURS TOPICAL PATCH TD SCH (10:14)
[2020-04-19] MEDS: DOXYCYCLINE HYCLATE 100 MG TABLET PO SCH ×2 (10:14→18:43)
[2020-04-19] MEDS: SENNOSIDES 8.6MG TABLET (FP) PO SCH ×2 (10:14→21:56)
[2020-04-19] MEDS: LIDOCAINE VISCOUS 2% ORAL/TOP 20 ML UNIT-DOSE CUP MM PRN ×2 (10:14→21:53)
[2020-04-19] MEDS: FLUTICASONE PROP 0.05% 16 GM NASAL SPRAY NS SCH (10:14)
[2020-04-19] MEDS: NAPROXEN 500 MG TABLET PO PRN ×2 (10:14→21:55)
[2020-04-19] MEDS: SODIUM CHLORIDE NASAL SPRAY 44 ML BOTTLE NS PRN (15:33)
[2020-04-19] MEDS: MAGNESIUM HYDROX 2400MG/30ML ORAL SUSPENSION 30 ML CUP PO PRN (21:52)
[2020-04-19] MEDS: THIAMINE HCL 100 MG TABLET (FP) PO SCH (21:55)
[2020-04-19] MEDS: MELATONIN 5 MG TABLETS PO SCH (21:55)
[2020-04-19] MEDS ORDERED: PT OWN MED DRAWER 7, Y5N ONE (21:56)
[2020-04-19] MEDS: LIDOCAINE PATCH REMOVAL MC SCH (21:58)
[2020-04-20] MEDS: PANTOPRAZOLE 40 MG TABLET PO SCH (06:32)
[2020-04-20] MEDS: guaiFENesin 200 MG/10 ML 10 ML UNIT-DOSE CUPS PO PRN (06:32)
[2020-04-20] MEDS: ARTIFICIAL TEARS (POLYVINYL ALCOHOL) OPTH DROPS OU SCH (06:32)
[2020-04-20] MEDS: ACETAMINOPHEN 325 MG TABLET (FP) PO PRN (06:32)
[2020-04-20 07:22] VITALS: BP 147/81; PULSE 73; TEMP 96.8
[2020-04-20] MEDS: NAPROXEN 500 MG TABLET PO PRN (09:10)
[2020-04-20] MEDS: DOXYCYCLINE HYCLATE 100 MG TABLET PO SCH (09:10)
[2020-04-20] MEDS: SENNOSIDES 8.6MG TABLET (FP) PO SCH (09:10)
[2020-04-20] MEDS: CARBAMIDE PEROXIDE 6.5% OTIC 15 ML BOTTLE AD SCH (09:10)
[2020-04-20] MEDS: PRENATAL VITAMINS W/ FOLIC ACID TABLET (FP) PO SCH (09:10)
[2020-04-20] MEDS: LIDOCAINE 5% TOPICAL PATCH TP SCH (09:11)
[2020-04-20] MEDS: HYDROCORTISONE 1% TOPICAL CREAM 30 GM TUBE TP SCH (09:11)
[2020-04-20] MEDS: FLUTICASONE PROP 0.05% 16 GM NASAL SPRAY NS SCH (09:11)
[2020-04-20] MEDS: NICOTINE 7 MG/24 HOURS TOPICAL PATCH TD SCH (09:11)
== END 2020-04-20 09:24 | disposition home or self-care (01) | DRG 772 ==
LOC: YASAS 12:47 → Y3W 12:50
PROVIDERS: ADMIT Allergy & Immunology; ATTEND Allergy & Immunology
PROC: HZ42ZZZ Group Counseling for Substance Abuse Treatment, Cognitive-Behavioral (ICD-10-PCS; principal; 2020-04-07)
DX: F10.20 Alcohol dependence, uncomplicated (principal); F14.20 Cocaine dependence, uncomplicated; F12.20 Cannabis dependence, uncomplicated; F17.210 Nicotine dependence, cigarettes, uncomplicated; I10 Essential (primary) hypertension; M54.5 Low back pain; G89.29 Other chronic pain; Z88.0 Allergy status to penicillin; Z88.8 Allergy status to other drugs, medicaments and biological substances; Z86.19 Personal history of other infectious and parasitic diseases; Z59.0 Homelessness

== ENCOUNTER 2020-09-13 10:47 | Inpatient (IN) | payer OTHER ==
[2020-09-13 12:07] VITALS: BMI 28.2
[2020-09-13] MEDS ORDERED: METHOCARBAMOL 500 MG TABLET PO PRN (14:09)
[2020-09-13] MEDS ORDERED: hydrOXYzine PAMOATE 25 MG CAPSULE (FP) PO PRN (14:09)
[2020-09-13] MEDS ORDERED: ONDANSETRON *ODT* 4 MG TABLET SL PRN (14:09)
[2020-09-13] MEDS ORDERED: ACETAMINOPHEN 325 MG TABLET (FP) PO PRN (14:09)
[2020-09-13] MEDS ORDERED: LORazepam 1 MG TABLET PO PRN (14:09)
[2020-09-13] MEDS ORDERED: BISMUTH SUBSALICYLATE 524 MG/30 ML UD PO PRN (14:09)
[2020-09-13] MEDS ORDERED: MAG HYDROX/AL HYDROX/SIMETH 30 ML UNIT-DOSE CUP PO PRN (14:09)
[2020-09-13] MEDS ORDERED: MAGNESIUM CITRATE 300 ML BOTTLE PO PRN (14:09)
[2020-09-13] MEDS ORDERED: NICOTINE POLACRILEX 2 MG GUM BUC PRN (14:09)
[2020-09-13] MEDS: LORazepam 2 MG TABLET PO SCH ×2 (21:47→22:44)
[2020-09-13] MEDS: THIAMINE HCL 100 MG TABLET (FP) PO SCH (22:44)
[2020-09-13] MEDS: ARTIFICIAL TEARS (POLYVINYL ALCOHOL) OPTH DROPS OU SCH (22:45)
[2020-09-13] MEDS: MELATONIN 5 MG TABLETS PO SCH (22:45)
[2020-09-13] MEDS: IBUPROFEN 400 MG TABLET (FP) PO PRN (22:45)
[2020-09-14] MEDS: ARTIFICIAL TEARS (POLYVINYL ALCOHOL) OPTH DROPS OU SCH ×3 (06:59→22:17)
[2020-09-14] MEDS: LORazepam 2 MG TABLET PO SCH ×4 (06:59→22:15)
[2020-09-14] MEDS: IBUPROFEN 400 MG TABLET (FP) PO PRN ×2 (07:05→22:19)
[2020-09-14] MEDS: NICOTINE 7 MG/24 HOURS TOPICAL PATCH TD SCH (10:36)
[2020-09-14] MEDS: PRENATAL VITAMINS W/ FOLIC ACID TABLET (FP) PO SCH (10:36)
[2020-09-14] MEDS: LORATADINE 10 MG TABLET PO SCH (10:36)
[2020-09-14] MEDS: HYDROCORTISONE 1% TOPICAL CREAM 30 GM TUBE TP SCH ×2 (10:37→22:16)
[2020-09-14 10:47] LABS: HEMATOCRIT 35.7 % (35.4-49); HEMOGLOBIN 12.3 GM/dL (11.7-16.9); MCH 30.6 pg (25.7-33.7); MCHC 34.4 g/dl (32.0-35.9); MEAN CELL VOLUME 89.1 fl (80-96); MEAN PLT VOLUME 8.6 fl (7.5-11.1); PLATELET COUNT 228 K/MM3 (134-434); RBC 4.01 M/mm3 (4.00-5.60); RDW 16.7 % (11.9-15.9); WHITE BLOOD COUNT 9.8 K/mm3 (4.0-10.0)
[2020-09-14 10:49] LABS: ALBUMIN 3.9 g/dl (3.4-5.0); BLOOD UREA NITROGEN 17.1 mg/dL (7-18); CALCIUM 8.6 mg/dL (8.5-10.1)
[2020-09-14 10:54] LABS: BILIRUBIN,TOTAL 0.5 mg/dL (0.2-1); TOT PROT 7.5 g/dl (6.4-8.2)
[2020-09-14] MEDS: HYDROCORTISONE 2.5% TOPICAL CREAM 30 GM TUBE RC SCH (13:36)
[2020-09-14] MEDS: THIAMINE HCL 100 MG TABLET (FP) PO SCH (22:15)
[2020-09-14] MEDS: FLUTICASONE PROP 0.05% 16 GM NASAL SPRAY NS SCH (22:16)
[2020-09-14] MEDS: MELATONIN 5 MG TABLETS PO SCH (22:21)
[2020-09-15] MEDS: LORazepam 1 MG TABLET PO SCH ×4 (05:37→23:49)
[2020-09-15] MEDS: ARTIFICIAL TEARS (POLYVINYL ALCOHOL) OPTH DROPS OU SCH ×3 (05:38→23:49)
[2020-09-15] MEDS: PRENATAL VITAMINS W/ FOLIC ACID TABLET (FP) PO SCH (10:19)
[2020-09-15] MEDS: FLUTICASONE PROP 0.05% 16 GM NASAL SPRAY NS SCH ×2 (10:19→23:50)
[2020-09-15] MEDS: NICOTINE 7 MG/24 HOURS TOPICAL PATCH TD SCH (10:19)
[2020-09-15] MEDS: HYDROCORTISONE 2.5% TOPICAL CREAM 30 GM TUBE RC SCH (10:20)
[2020-09-15] MEDS: HYDROCORTISONE 1% TOPICAL CREAM 30 GM TUBE TP SCH ×2 (10:20→23:50)
[2020-09-15] MEDS: LORATADINE 10 MG TABLET PO SCH (10:21)
[2020-09-15] MEDS: ACETAMINOPHEN 325 MG TABLET (FP) PO PRN (10:23)
[2020-09-15] MEDS: MENTHOL/PHENOL 1 EACH UD MM PRN (10:49)
[2020-09-15] MEDS: MELATONIN 5 MG TABLETS PO SCH (23:50)
[2020-09-15] MEDS: THIAMINE HCL 100 MG TABLET (FP) PO SCH (23:50)
[2020-09-16] MEDS ORDERED: LORazepam 0.5 MG TABLET PO PRN
[2020-09-16] MEDS: LORazepam 0.5 MG TABLET PO SCH ×4 (05:13→23:15)
[2020-09-16] MEDS: MAGNESIUM HYDROX 2400MG/30ML ORAL SUSPENSION 30 ML CUP PO PRN ×2 (05:14→10:58)
[2020-09-16] MEDS: ARTIFICIAL TEARS (POLYVINYL ALCOHOL) OPTH DROPS OU SCH ×3 (05:48→23:15)
[2020-09-16] MEDS: IBUPROFEN 400 MG TABLET (FP) PO PRN ×2 (06:16→15:37)
[2020-09-16] MEDS: PRENATAL VITAMINS W/ FOLIC ACID TABLET (FP) PO SCH (10:55)
[2020-09-16] MEDS: HYDROCORTISONE 1% TOPICAL CREAM 30 GM TUBE TP SCH ×2 (10:56→23:15)
[2020-09-16] MEDS: HYDROCORTISONE 2.5% TOPICAL CREAM 30 GM TUBE RC SCH (10:56)
[2020-09-16] MEDS: FLUTICASONE PROP 0.05% 16 GM NASAL SPRAY NS SCH ×2 (10:57→23:15)
[2020-09-16] MEDS: amLODIPine BESYLATE 10 MG TABLET (FP) PO SCH (10:57)
[2020-09-16] MEDS: LORATADINE 10 MG TABLET PO SCH (10:57)
[2020-09-16] MEDS: NICOTINE 7 MG/24 HOURS TOPICAL PATCH TD SCH (10:59)
[2020-09-16] MEDS: MENTHOL/PHENOL 1 EACH UD MM PRN (15:37)
[2020-09-16] MEDS: ACETAMINOPHEN 325 MG TABLET (FP) PO PRN (17:58)
[2020-09-16] MEDS: MELATONIN 5 MG TABLETS PO SCH (23:15)
[2020-09-16] MEDS: THIAMINE HCL 100 MG TABLET (FP) PO SCH (23:16)
[2020-09-17] MEDS ORDERED: LORazepam 0.5 MG TABLET PO ONE (05:00)
[2020-09-17] MEDS: IBUPROFEN 400 MG TABLET (FP) PO PRN (05:33)
[2020-09-17] MEDS: ARTIFICIAL TEARS (POLYVINYL ALCOHOL) OPTH DROPS OU SCH (05:34)
[2020-09-17 06:07] LABS: SARS-CoV-2 NAA Not Detected (Not Detected)
[2020-09-17] MEDS: PRENATAL VITAMINS W/ FOLIC ACID TABLET (FP) PO SCH (10:40)
[2020-09-17] MEDS: amLODIPine BESYLATE 10 MG TABLET (FP) PO SCH (10:40)
[2020-09-17] MEDS: LORATADINE 10 MG TABLET PO SCH (10:40)
[2020-09-17] MEDS: NICOTINE 7 MG/24 HOURS TOPICAL PATCH TD SCH (10:41)
[2020-09-17] MEDS: ACETAMINOPHEN 325 MG TABLET (FP) PO PRN (10:42)
[2020-09-17] MEDS: HYDROCORTISONE 1% TOPICAL CREAM 30 GM TUBE TP SCH (10:44)
[2020-09-17] MEDS: FLUTICASONE PROP 0.05% 16 GM NASAL SPRAY NS SCH (10:44)
[2020-09-17] MEDS: HYDROCORTISONE 2.5% TOPICAL CREAM 30 GM TUBE RC SCH (10:44)
[2020-09-17] MEDS: MENTHOL/PHENOL 1 EACH UD MM PRN (10:44)
[2020-09-17 11:08] VITALS: BP 130/67; PULSE 95; TEMP 97.8
== END 2020-09-17 12:20 | disposition other institution (70) | DRG 774 ==
LOC: YASAS 10:47 → Y6N 14:08
PROVIDERS: ADMIT Allergy & Immunology; ATTEND Allergy & Immunology
PROC: HZ2ZZZZ Detoxification Services for Substance Abuse Treatment (ICD-10-PCS; principal; 2020-09-13)
DX: F10.230 Alcohol dependence with withdrawal, uncomplicated (principal); F14.20 Cocaine dependence, uncomplicated; F12.20 Cannabis dependence, uncomplicated; F17.210 Nicotine dependence, cigarettes, uncomplicated; F19.24 Other psychoactive substance dependence with psychoactive substance-induced mood disorder; I10 Essential (primary) hypertension; K21.9 Gastro-esophageal reflux disease without esophagitis; A53.0 Latent syphilis, unspecified as early or late; R76.11 Nonspecific reaction to tuberculin skin test without active tuberculosis; Z86.19 Personal history of other infectious and parasitic diseases; Z88.0 Allergy status to penicillin; Z88.7 Allergy status to serum and vaccine; Z91.018 Allergy to other foods
CPT/HCPCS: 36415; 71046-TC-FY; 80053; 85027; 86593; 86780; C9803; U0003; U0005

== ENCOUNTER 2020-09-17 12:15 | Inpatient (IN) | payer OTHER ==
[~2020-09-17 12:15] MED LIST: ACETAMINOPHEN 325 MG TABLET (FP) PO PRN; IBUPROFEN 400 MG TABLET (FP) PO PRN; LOPERAMIDE HCL 2 MG CAPSULE PO PRN; MAGNESIUM CITRATE 300 ML BOTTLE PO PRN; NICOTINE POLACRILEX 2 MG GUM BUC PRN; P-EPHED 60MG/TRIPROLIDI 2.5MG TABLET PO PRN; guaiFENesin 200 MG/10 ML 10 ML UNIT-DOSE CUPS PO PRN
[2020-09-17] MEDS: ARTIFICIAL TEARS (POLYVINYL ALCOHOL) OPTH DROPS OU SCH ×2 (14:25→22:12)
[2020-09-17] MEDS ORDERED: SODIUM CHLORIDE NASAL SPRAY 44 ML BOTTLE NS PRN (15:38)
[2020-09-17] MEDS: HYDROCORTISONE 1% TOPICAL CREAM 30 GM TUBE TP SCH (22:12)
[2020-09-17] MEDS: THIAMINE HCL 100 MG TABLET (FP) PO SCH (22:12)
[2020-09-17] MEDS: GABAPENTIN 100 MG CAPSULE PO SCH (22:12)
[2020-09-17] MEDS: MELATONIN 5 MG TABLETS PO SCH (22:12)
[2020-09-17] MEDS: FLUTICASONE PROP 0.05% 16 GM NASAL SPRAY NS SCH (22:12)
[2020-09-18] MEDS: NAPROXEN 500 MG TABLET PO PRN ×2 (06:15→16:51)
[2020-09-18] MEDS: MAGNESIUM HYDROX 2400MG/30ML ORAL SUSPENSION 30 ML CUP PO PRN (06:15)
[2020-09-18] MEDS: ARTIFICIAL TEARS (POLYVINYL ALCOHOL) OPTH DROPS OU SCH ×3 (06:15→21:15)
[2020-09-18] MEDS: GABAPENTIN 100 MG CAPSULE PO SCH ×3 (06:15→21:16)
[2020-09-18] MEDS: FAMOTIDINE 20 MG TABLET PO SCH (06:16)
[2020-09-18] MEDS: PANTOPRAZOLE 40 MG TABLET PO SCH (07:08)
[2020-09-18] MEDS: PRENATAL VITAMINS W/ FOLIC ACID TABLET (FP) PO SCH (09:40)
[2020-09-18] MEDS: LORATADINE 10 MG TABLET PO SCH (09:41)
[2020-09-18] MEDS: amLODIPine BESYLATE 10 MG TABLET (FP) PO SCH (09:41)
[2020-09-18] MEDS: HYDROCORTISONE 1% TOPICAL CREAM 30 GM TUBE TP SCH ×2 (09:42→21:16)
[2020-09-18] MEDS: FLUTICASONE PROP 0.05% 16 GM NASAL SPRAY NS SCH ×2 (09:42→21:16)
[2020-09-18] MEDS: NICOTINE 7 MG/24 HOURS TOPICAL PATCH TD SCH (09:44)
[2020-09-18] MEDS: MAG HYDROX/AL HYDROX/SIMETH 30 ML UNIT-DOSE CUP PO PRN (13:56)
[2020-09-18] MEDS: MELATONIN 5 MG TABLETS PO SCH (21:16)
[2020-09-18] MEDS: THIAMINE HCL 100 MG TABLET (FP) PO SCH (21:16)
[2020-09-18] MEDS: SENNOSIDES 8.6MG TABLET (FP) PO SCH (21:17)
[2020-09-18] MEDS: LACTULOSE 20 GM/30 ML UDC (FOR ORAL USE ONLY) PO PRN (21:18)
[2020-09-19] MEDS: PANTOPRAZOLE 40 MG TABLET PO SCH (06:16)
[2020-09-19] MEDS: NAPROXEN 500 MG TABLET PO PRN ×2 (06:16→21:55)
[2020-09-19] MEDS: GABAPENTIN 100 MG CAPSULE PO SCH ×3 (06:16→21:54)
[2020-09-19] MEDS: FAMOTIDINE 20 MG TABLET PO SCH (06:16)
[2020-09-19] MEDS: ARTIFICIAL TEARS (POLYVINYL ALCOHOL) OPTH DROPS OU SCH ×3 (06:17→21:56)
[2020-09-19] MEDS: MENTHOL/PHENOL 1 EACH UD MM PRN (06:18)
[2020-09-19] MEDS: LORATADINE 10 MG TABLET PO SCH (09:38)
[2020-09-19] MEDS: amLODIPine BESYLATE 10 MG TABLET (FP) PO SCH (09:38)
[2020-09-19] MEDS: PRENATAL VITAMINS W/ FOLIC ACID TABLET (FP) PO SCH (09:38)
[2020-09-19] MEDS: HYDROCORTISONE 1% TOPICAL CREAM 30 GM TUBE TP SCH ×2 (09:38→21:56)
[2020-09-19] MEDS: FLUTICASONE PROP 0.05% 16 GM NASAL SPRAY NS SCH ×2 (09:39→21:55)
[2020-09-19] MEDS: NICOTINE 7 MG/24 HOURS TOPICAL PATCH TD SCH (09:40)
[2020-09-19] MEDS ORDERED: PT OWN MED DRAWER 7, Y5N ONE (19:05)
[2020-09-19] MEDS: SENNOSIDES 8.6MG TABLET (FP) PO SCH (21:53)
[2020-09-19] MEDS: MELATONIN 5 MG TABLETS PO SCH (21:54)
[2020-09-19] MEDS: THIAMINE HCL 100 MG TABLET (FP) PO SCH (21:54)
[2020-09-19] MEDS: LACTULOSE 20 GM/30 ML UDC (FOR ORAL USE ONLY) PO PRN (21:55)
[2020-09-20] MEDS: FAMOTIDINE 20 MG TABLET PO SCH (06:24)
[2020-09-20] MEDS: ARTIFICIAL TEARS (POLYVINYL ALCOHOL) OPTH DROPS OU SCH ×3 (06:24→21:19)
[2020-09-20] MEDS: PANTOPRAZOLE 40 MG TABLET PO SCH (06:24)
[2020-09-20] MEDS: GABAPENTIN 100 MG CAPSULE PO SCH ×3 (06:24→21:19)
[2020-09-20] MEDS ORDERED: PT OWN MED DRAWER 7, Y5N ONE ×2 (08:45→20:19)
[2020-09-20] MEDS: amLODIPine BESYLATE 10 MG TABLET (FP) PO SCH (09:42)
[2020-09-20] MEDS: LORATADINE 10 MG TABLET PO SCH (09:42)
[2020-09-20] MEDS: PRENATAL VITAMINS W/ FOLIC ACID TABLET (FP) PO SCH (09:42)
[2020-09-20] MEDS: FLUTICASONE PROP 0.05% 16 GM NASAL SPRAY NS SCH ×2 (09:43→21:19)
[2020-09-20] MEDS: NICOTINE 7 MG/24 HOURS TOPICAL PATCH TD SCH (09:44)
[2020-09-20] MEDS: NAPROXEN 500 MG TABLET PO PRN ×2 (09:45→21:19)
[2020-09-20] MEDS: HYDROCORTISONE 1% TOPICAL CREAM 30 GM TUBE TP SCH ×2 (09:46→21:20)
[2020-09-20] MEDS: THIAMINE HCL 100 MG TABLET (FP) PO SCH (21:19)
[2020-09-20] MEDS: SENNOSIDES 8.6MG TABLET (FP) PO SCH (21:19)
[2020-09-20] MEDS: MELATONIN 5 MG TABLETS PO SCH (21:20)
[2020-09-20] MEDS: LACTULOSE 20 GM/30 ML UDC (FOR ORAL USE ONLY) PO PRN (21:20)
[2020-09-21] MEDS: ARTIFICIAL TEARS (POLYVINYL ALCOHOL) OPTH DROPS OU SCH ×3 (06:20→22:40)
[2020-09-21] MEDS: GABAPENTIN 100 MG CAPSULE PO SCH ×3 (06:20→21:49)
[2020-09-21] MEDS: FAMOTIDINE 20 MG TABLET PO SCH (06:20)
[2020-09-21] MEDS: PANTOPRAZOLE 40 MG TABLET PO SCH (06:20)
[2020-09-21] MEDS: NAPROXEN 500 MG TABLET PO PRN ×2 (06:22→21:49)
[2020-09-21] MEDS ORDERED: PT OWN MED DRAWER 7, Y5N ONE ×2 (08:16→19:42)
[2020-09-21] MEDS: PRENATAL VITAMINS W/ FOLIC ACID TABLET (FP) PO SCH (09:44)
[2020-09-21] MEDS: FLUTICASONE PROP 0.05% 16 GM NASAL SPRAY NS SCH ×2 (09:44→21:50)
[2020-09-21] MEDS: LORATADINE 10 MG TABLET PO SCH (09:45)
[2020-09-21] MEDS: amLODIPine BESYLATE 10 MG TABLET (FP) PO SCH (09:45)
[2020-09-21] MEDS: NICOTINE 7 MG/24 HOURS TOPICAL PATCH TD SCH (09:45)
[2020-09-21] MEDS: HYDROCORTISONE 1% TOPICAL CREAM 30 GM TUBE TP SCH ×2 (09:46→21:49)
[2020-09-21 10:06] LABS: SARS-CoV-2 NAA Not Detected (Not Detected)
[2020-09-21] MEDS ORDERED: ACETAMINOPHEN 325 MG TABLET (FP) PO PRN (10:47)
[2020-09-21] MEDS ORDERED: IBUPROFEN 400 MG TABLET (FP) PO PRN (10:49)
[2020-09-21] MEDS: ACETAMINOPHEN 325 MG TABLET (FP) PO PRN (16:48)
[2020-09-21] MEDS: BACITRACIN 0.9 GM PACKET TP SCH (16:55)
[2020-09-21] MEDS: THIAMINE HCL 100 MG TABLET (FP) PO SCH (21:48)
[2020-09-21] MEDS: LACTULOSE 20 GM/30 ML UDC (FOR ORAL USE ONLY) PO PRN (21:48)
[2020-09-21] MEDS: SENNOSIDES 8.6MG TABLET (FP) PO SCH (21:49)
[2020-09-21] MEDS: MELATONIN 5 MG TABLETS PO SCH (21:50)
[2020-09-21] MEDS: HYDROCORTISONE 2.5% TOPICAL CREAM 30 GM TUBE RC SCH (21:51)
[2020-09-22] MEDS: ACETAMINOPHEN 325 MG TABLET (FP) PO PRN ×2 (06:09→18:25)
[2020-09-22] MEDS: FAMOTIDINE 20 MG TABLET PO SCH (06:09)
[2020-09-22] MEDS: PANTOPRAZOLE 40 MG TABLET PO SCH (06:10)
[2020-09-22] MEDS: GABAPENTIN 100 MG CAPSULE PO SCH ×3 (06:10→21:17)
[2020-09-22] MEDS: ARTIFICIAL TEARS (POLYVINYL ALCOHOL) OPTH DROPS OU SCH ×3 (06:11→22:39)
[2020-09-22] MEDS: MENTHOL/PHENOL 1 EACH UD MM PRN (06:13)
[2020-09-22] MEDS: LORATADINE 10 MG TABLET PO SCH (09:38)
[2020-09-22] MEDS: PRENATAL VITAMINS W/ FOLIC ACID TABLET (FP) PO SCH (09:38)
[2020-09-22] MEDS: amLODIPine BESYLATE 10 MG TABLET (FP) PO SCH (09:39)
[2020-09-22] MEDS: BACITRACIN 0.9 GM PACKET TP SCH (09:40)
[2020-09-22] MEDS: NAPROXEN 500 MG TABLET PO PRN ×2 (09:41→21:17)
[2020-09-22] MEDS ORDERED: PT OWN MED DRAWER 7, Y5N ONE (09:41)
[2020-09-22] MEDS: FLUTICASONE PROP 0.05% 16 GM NASAL SPRAY NS SCH ×2 (09:41→21:18)
[2020-09-22] MEDS: NICOTINE 7 MG/24 HOURS TOPICAL PATCH TD SCH (09:42)
[2020-09-22] MEDS: HYDROCORTISONE 1% TOPICAL CREAM 30 GM TUBE TP SCH ×2 (09:42→21:19)
[2020-09-22] MEDS: MAG HYDROX/AL HYDROX/SIMETH 30 ML UNIT-DOSE CUP PO PRN (13:51)
[2020-09-22] MEDS: THIAMINE HCL 100 MG TABLET (FP) PO SCH (21:17)
[2020-09-22] MEDS: LACTULOSE 20 GM/30 ML UDC (FOR ORAL USE ONLY) PO PRN (21:17)
[2020-09-22] MEDS: SENNOSIDES 8.6MG TABLET (FP) PO SCH (21:18)
[2020-09-22] MEDS: MELATONIN 5 MG TABLETS PO SCH (21:19)
[2020-09-22] MEDS: HYDROCORTISONE 2.5% TOPICAL CREAM 30 GM TUBE RC SCH (21:19)
[2020-09-23] MEDS: ACETAMINOPHEN 325 MG TABLET (FP) PO PRN ×3 (03:23→17:00)
[2020-09-23] MEDS: FAMOTIDINE 20 MG TABLET PO SCH (06:18)
[2020-09-23] MEDS: GABAPENTIN 100 MG CAPSULE PO SCH ×3 (06:18→21:39)
[2020-09-23] MEDS: ARTIFICIAL TEARS (POLYVINYL ALCOHOL) OPTH DROPS OU SCH ×3 (06:18→21:39)
[2020-09-23] MEDS: PANTOPRAZOLE 40 MG TABLET PO SCH (06:18)
[2020-09-23] MEDS: NAPROXEN 500 MG TABLET PO PRN ×2 (06:18→21:39)
[2020-09-23] MEDS: PRENATAL VITAMINS W/ FOLIC ACID TABLET (FP) PO SCH (09:37)
[2020-09-23] MEDS: LORATADINE 10 MG TABLET PO SCH (09:37)
[2020-09-23] MEDS: FLUTICASONE PROP 0.05% 16 GM NASAL SPRAY NS SCH ×2 (09:38→21:39)
[2020-09-23] MEDS: BACITRACIN 0.9 GM PACKET TP SCH (09:38)
[2020-09-23] MEDS: HYDROCORTISONE 1% TOPICAL CREAM 30 GM TUBE TP SCH ×2 (09:38→21:40)
[2020-09-23] MEDS: NICOTINE 7 MG/24 HOURS TOPICAL PATCH TD SCH (09:39)
[2020-09-23] MEDS: amLODIPine BESYLATE 10 MG TABLET (FP) PO SCH (09:39)
[2020-09-23] MEDS ORDERED: PT OWN MED DRAWER 7, Y5N ONE (19:18)
[2020-09-23] MEDS: SENNOSIDES 8.6MG TABLET (FP) PO SCH (21:39)
[2020-09-23] MEDS: LACTULOSE 20 GM/30 ML UDC (FOR ORAL USE ONLY) PO PRN (21:39)
[2020-09-23] MEDS: THIAMINE HCL 100 MG TABLET (FP) PO SCH (21:39)
[2020-09-23] MEDS: MELATONIN 5 MG TABLETS PO SCH (21:40)
[2020-09-23] MEDS: HYDROCORTISONE 2.5% TOPICAL CREAM 30 GM TUBE RC SCH (21:43)
[2020-09-24] MEDS: ACETAMINOPHEN 325 MG TABLET (FP) PO PRN ×2 (06:25→13:56)
[2020-09-24] MEDS: GABAPENTIN 100 MG CAPSULE PO SCH ×3 (06:26→21:11)
[2020-09-24] MEDS: ARTIFICIAL TEARS (POLYVINYL ALCOHOL) OPTH DROPS OU SCH ×3 (06:26→21:14)
[2020-09-24] MEDS: PANTOPRAZOLE 40 MG TABLET PO SCH (06:26)
[2020-09-24] MEDS: FAMOTIDINE 20 MG TABLET PO SCH (06:26)
[2020-09-24] MEDS: MENTHOL/PHENOL 1 EACH UD MM PRN (06:28)
[2020-09-24] MEDS: PRENATAL VITAMINS W/ FOLIC ACID TABLET (FP) PO SCH (10:01)
[2020-09-24] MEDS: NAPROXEN 500 MG TABLET PO PRN ×2 (10:01→21:14)
[2020-09-24] MEDS: LORATADINE 10 MG TABLET PO SCH (10:02)
[2020-09-24] MEDS: FLUTICASONE PROP 0.05% 16 GM NASAL SPRAY NS SCH ×2 (10:02→21:11)
[2020-09-24] MEDS: amLODIPine BESYLATE 10 MG TABLET (FP) PO SCH (10:03)
[2020-09-24] MEDS: BACITRACIN 0.9 GM PACKET TP SCH (10:03)
[2020-09-24] MEDS: HYDROCORTISONE 1% TOPICAL CREAM 30 GM TUBE TP SCH ×2 (10:03→21:13)
[2020-09-24] MEDS: NICOTINE 7 MG/24 HOURS TOPICAL PATCH TD SCH (10:03)
[2020-09-24] MEDS ORDERED: PT OWN MED DRAWER 7, Y5N ONE (19:45)
[2020-09-24] MEDS: LACTULOSE 20 GM/30 ML UDC (FOR ORAL USE ONLY) PO PRN (21:11)
[2020-09-24] MEDS: THIAMINE HCL 100 MG TABLET (FP) PO SCH (21:11)
[2020-09-24] MEDS: HYDROCORTISONE 2.5% TOPICAL CREAM 30 GM TUBE RC SCH (21:12)
[2020-09-24] MEDS: SENNOSIDES 8.6MG TABLET (FP) PO SCH (21:12)
[2020-09-24] MEDS: MELATONIN 5 MG TABLETS PO SCH (21:13)
[2020-09-25] MEDS: GABAPENTIN 100 MG CAPSULE PO SCH ×3 (06:49→21:11)
[2020-09-25] MEDS: ARTIFICIAL TEARS (POLYVINYL ALCOHOL) OPTH DROPS OU SCH ×2 (06:49→14:45)
[2020-09-25] MEDS: FAMOTIDINE 20 MG TABLET PO SCH ×2 (06:49→21:11)
[2020-09-25] MEDS: MENTHOL/PHENOL 1 EACH UD MM PRN ×2 (06:50→14:45)
[2020-09-25] MEDS: PANTOPRAZOLE 40 MG TABLET PO SCH (06:50)
[2020-09-25] MEDS: ACETAMINOPHEN 325 MG TABLET (FP) PO PRN ×2 (06:51→14:43)
[2020-09-25] MEDS: PRENATAL VITAMINS W/ FOLIC ACID TABLET (FP) PO SCH (10:05)
[2020-09-25] MEDS: BACITRACIN 0.9 GM PACKET TP SCH (10:06)
[2020-09-25] MEDS: HYDROCORTISONE 1% TOPICAL CREAM 30 GM TUBE TP SCH ×2 (10:06→21:13)
[2020-09-25] MEDS: LORATADINE 10 MG TABLET PO SCH (10:06)
[2020-09-25] MEDS: FLUTICASONE PROP 0.05% 16 GM NASAL SPRAY NS SCH ×2 (10:06→21:11)
[2020-09-25] MEDS: amLODIPine BESYLATE 10 MG TABLET (FP) PO SCH (10:07)
[2020-09-25] MEDS: NICOTINE 7 MG/24 HOURS TOPICAL PATCH TD SCH (10:07)
[2020-09-25] MEDS: NAPROXEN 500 MG TABLET PO PRN ×2 (10:08→21:11)
[2020-09-25] MEDS ORDERED: PT OWN MED DRAWER 7, Y5N ONE (20:50)
[2020-09-25] MEDS: LACTULOSE 20 GM/30 ML UDC (FOR ORAL USE ONLY) PO PRN (21:10)
[2020-09-25] MEDS: SENNOSIDES 8.6MG TABLET (FP) PO SCH (21:11)
[2020-09-25] MEDS: THIAMINE HCL 100 MG TABLET (FP) PO SCH (21:11)
[2020-09-25] MEDS: HYDROCORTISONE 2.5% TOPICAL CREAM 30 GM TUBE RC SCH (21:12)
[2020-09-25] MEDS: MELATONIN 5 MG TABLETS PO SCH (21:13)
[2020-09-25] MEDS ORDERED: FAMOTIDINE 20 MG TABLET PO SCH (22:00)
[2020-09-26] MEDS: ACETAMINOPHEN 325 MG TABLET (FP) PO PRN ×2 (06:31→14:09)
[2020-09-26] MEDS: GABAPENTIN 100 MG CAPSULE PO SCH ×3 (06:31→21:34)
[2020-09-26] MEDS: FAMOTIDINE 20 MG TABLET PO SCH ×2 (06:31→21:34)
[2020-09-26] MEDS: MENTHOL/PHENOL 1 EACH UD MM PRN (06:32)
[2020-09-26] MEDS: ARTIFICIAL TEARS (POLYVINYL ALCOHOL) OPTH DROPS OU SCH ×3 (06:33→21:37)
[2020-09-26] MEDS: NAPROXEN 500 MG TABLET PO PRN ×2 (10:03→21:34)
[2020-09-26] MEDS: PRENATAL VITAMINS W/ FOLIC ACID TABLET (FP) PO SCH (10:03)
[2020-09-26] MEDS: LORATADINE 10 MG TABLET PO SCH (10:03)
[2020-09-26] MEDS: amLODIPine BESYLATE 10 MG TABLET (FP) PO SCH (10:04)
[2020-09-26] MEDS: BACITRACIN 0.9 GM PACKET TP SCH (10:05)
[2020-09-26] MEDS: NICOTINE 7 MG/24 HOURS TOPICAL PATCH TD SCH (10:05)
[2020-09-26] MEDS: FLUTICASONE PROP 0.05% 16 GM NASAL SPRAY NS SCH ×2 (10:05→21:37)
[2020-09-26] MEDS: HYDROCORTISONE 1% TOPICAL CREAM 30 GM TUBE TP SCH ×2 (10:06→21:37)
[2020-09-26] MEDS: THIAMINE HCL 100 MG TABLET (FP) PO SCH (21:34)
[2020-09-26] MEDS: LACTULOSE 20 GM/30 ML UDC (FOR ORAL USE ONLY) PO PRN (21:35)
[2020-09-26] MEDS: MELATONIN 5 MG TABLETS PO SCH (21:36)
[2020-09-26] MEDS: SENNOSIDES 8.6MG TABLET (FP) PO SCH (21:37)
[2020-09-26] MEDS: HYDROCORTISONE 2.5% TOPICAL CREAM 30 GM TUBE RC SCH (21:37)
[2020-09-27] MEDS: FAMOTIDINE 20 MG TABLET PO SCH ×2 (06:44→21:32)
[2020-09-27] MEDS: GABAPENTIN 100 MG CAPSULE PO SCH ×3 (06:44→21:32)
[2020-09-27] MEDS: MENTHOL/PHENOL 1 EACH UD MM PRN (06:44)
[2020-09-27] MEDS: ARTIFICIAL TEARS (POLYVINYL ALCOHOL) OPTH DROPS OU SCH ×3 (06:45→21:30)
[2020-09-27] MEDS: ACETAMINOPHEN 325 MG TABLET (FP) PO PRN ×2 (06:46→14:17)
[2020-09-27] MEDS: amLODIPine BESYLATE 10 MG TABLET (FP) PO SCH (09:58)
[2020-09-27] MEDS: NAPROXEN 500 MG TABLET PO PRN ×2 (09:58→21:32)
[2020-09-27] MEDS: PRENATAL VITAMINS W/ FOLIC ACID TABLET (FP) PO SCH (09:58)
[2020-09-27] MEDS: LORATADINE 10 MG TABLET PO SCH (09:58)
[2020-09-27] MEDS: BACITRACIN 0.9 GM PACKET TP SCH (09:58)
[2020-09-27] MEDS: HYDROCORTISONE 1% TOPICAL CREAM 30 GM TUBE TP SCH ×2 (09:59→21:31)
[2020-09-27] MEDS: NICOTINE 7 MG/24 HOURS TOPICAL PATCH TD SCH (09:59)
[2020-09-27] MEDS: FLUTICASONE PROP 0.05% 16 GM NASAL SPRAY NS SCH ×2 (09:59→21:31)
[2020-09-27] MEDS: LACTULOSE 20 GM/30 ML UDC (FOR ORAL USE ONLY) PO PRN (21:30)
[2020-09-27] MEDS: HYDROCORTISONE 2.5% TOPICAL CREAM 30 GM TUBE RC SCH (21:31)
[2020-09-27] MEDS: SENNOSIDES 8.6MG TABLET (FP) PO SCH (21:32)
[2020-09-27] MEDS: THIAMINE HCL 100 MG TABLET (FP) PO SCH (21:32)
[2020-09-27] MEDS: MELATONIN 5 MG TABLETS PO SCH (21:33)
[2020-09-28] MEDS: ACETAMINOPHEN 325 MG TABLET (FP) PO PRN ×2 (06:40→14:19)
[2020-09-28] MEDS: FAMOTIDINE 20 MG TABLET PO SCH ×2 (06:41→21:26)
[2020-09-28] MEDS: GABAPENTIN 100 MG CAPSULE PO SCH ×3 (06:41→21:24)
[2020-09-28] MEDS: ARTIFICIAL TEARS (POLYVINYL ALCOHOL) OPTH DROPS OU SCH ×4 (07:02→21:28)
[2020-09-28] MEDS: FLUTICASONE PROP 0.05% 16 GM NASAL SPRAY NS SCH ×2 (09:54→21:26)
[2020-09-28] MEDS: PRENATAL VITAMINS W/ FOLIC ACID TABLET (FP) PO SCH (09:54)
[2020-09-28] MEDS: LORATADINE 10 MG TABLET PO SCH (09:55)
[2020-09-28] MEDS: amLODIPine BESYLATE 10 MG TABLET (FP) PO SCH (09:55)
[2020-09-28] MEDS: HYDROCORTISONE 1% TOPICAL CREAM 30 GM TUBE TP SCH ×2 (09:55→21:26)
[2020-09-28] MEDS: BACITRACIN 0.9 GM PACKET TP SCH (09:55)
[2020-09-28] MEDS: NICOTINE 7 MG/24 HOURS TOPICAL PATCH TD SCH (09:56)
[2020-09-28] MEDS: NAPROXEN 500 MG TABLET PO PRN ×2 (09:57→21:24)
[2020-09-28] MEDS ORDERED: PT OWN MED DRAWER 7, Y5N ONE (14:13)
[2020-09-28] MEDS: METHYL SALICYLATE/MENTHOL OINT 30 GM TUBE TP SCH ×2 (14:18→21:25)
[2020-09-28] MEDS: LACTULOSE 20 GM/30 ML UDC (FOR ORAL USE ONLY) PO PRN (21:24)
[2020-09-28] MEDS: MELATONIN 5 MG TABLETS PO SCH (21:24)
[2020-09-28] MEDS: THIAMINE HCL 100 MG TABLET (FP) PO SCH (21:24)
[2020-09-28] MEDS: SENNOSIDES 8.6MG TABLET (FP) PO SCH (21:24)
[2020-09-28] MEDS: HYDROCORTISONE 2.5% TOPICAL CREAM 30 GM TUBE RC SCH (21:25)
[2020-09-29] MEDS: GABAPENTIN 100 MG CAPSULE PO SCH ×3 (06:49→21:18)
[2020-09-29] MEDS: ACETAMINOPHEN 325 MG TABLET (FP) PO PRN ×2 (06:49→14:01)
[2020-09-29] MEDS: FAMOTIDINE 20 MG TABLET PO SCH ×2 (06:50→21:29)
[2020-09-29] MEDS: ARTIFICIAL TEARS (POLYVINYL ALCOHOL) OPTH DROPS OU SCH ×3 (06:50→21:16)
[2020-09-29] MEDS ORDERED: MASKS NR ONE (07:15)
[2020-09-29] MEDS: NAPROXEN 500 MG TABLET PO PRN ×2 (09:54→21:18)
[2020-09-29] MEDS: PRENATAL VITAMINS W/ FOLIC ACID TABLET (FP) PO SCH (09:54)
[2020-09-29] MEDS: FLUTICASONE PROP 0.05% 16 GM NASAL SPRAY NS SCH ×2 (09:54→21:16)
[2020-09-29] MEDS: BACITRACIN 0.9 GM PACKET TP SCH (09:55)
[2020-09-29] MEDS: LORATADINE 10 MG TABLET PO SCH (09:55)
[2020-09-29] MEDS: NICOTINE 7 MG/24 HOURS TOPICAL PATCH TD SCH (09:55)
[2020-09-29] MEDS: amLODIPine BESYLATE 10 MG TABLET (FP) PO SCH (09:55)
[2020-09-29] MEDS: METHYL SALICYLATE/MENTHOL OINT 30 GM TUBE TP SCH ×2 (09:55→21:55)
[2020-09-29] MEDS: HYDROCORTISONE 1% TOPICAL CREAM 30 GM TUBE TP SCH ×2 (09:56→21:29)
[2020-09-29] MEDS: MAG HYDROX/AL HYDROX/SIMETH 30 ML UNIT-DOSE CUP PO PRN (19:12)
[2020-09-29] MEDS: MELATONIN 5 MG TABLETS PO SCH (21:16)
[2020-09-29] MEDS: HYDROCORTISONE 2.5% TOPICAL CREAM 30 GM TUBE RC SCH (21:16)
[2020-09-29] MEDS: THIAMINE HCL 100 MG TABLET (FP) PO SCH (21:18)
[2020-09-29] MEDS: LACTULOSE 20 GM/30 ML UDC (FOR ORAL USE ONLY) PO PRN (21:18)
[2020-09-29] MEDS: SENNOSIDES 8.6MG TABLET (FP) PO SCH (22:56)
[2020-09-30] MEDS: MAGNESIUM HYDROX 2400MG/30ML ORAL SUSPENSION 30 ML CUP PO PRN ×2 (06:59→15:46)
[2020-09-30] MEDS: FAMOTIDINE 20 MG TABLET PO SCH ×2 (06:59→21:33)
[2020-09-30] MEDS: ARTIFICIAL TEARS (POLYVINYL ALCOHOL) OPTH DROPS OU SCH ×3 (06:59→21:37)
[2020-09-30] MEDS: GABAPENTIN 100 MG CAPSULE PO SCH ×3 (06:59→21:33)
[2020-09-30] MEDS: ACETAMINOPHEN 325 MG TABLET (FP) PO PRN ×2 (07:00→15:42)
[2020-09-30] MEDS: PRENATAL VITAMINS W/ FOLIC ACID TABLET (FP) PO SCH (09:44)
[2020-09-30] MEDS: NICOTINE 7 MG/24 HOURS TOPICAL PATCH TD SCH (09:44)
[2020-09-30] MEDS: amLODIPine BESYLATE 10 MG TABLET (FP) PO SCH (09:44)
[2020-09-30] MEDS: FLUTICASONE PROP 0.05% 16 GM NASAL SPRAY NS SCH ×2 (09:45→21:35)
[2020-09-30] MEDS: BACITRACIN 0.9 GM PACKET TP SCH (09:45)
[2020-09-30] MEDS: METHYL SALICYLATE/MENTHOL OINT 30 GM TUBE TP SCH ×2 (09:45→21:37)
[2020-09-30] MEDS: LORATADINE 10 MG TABLET PO SCH (09:45)
[2020-09-30] MEDS: NAPROXEN 500 MG TABLET PO PRN ×2 (09:46→21:33)
[2020-09-30] MEDS: HYDROCORTISONE 1% TOPICAL CREAM 30 GM TUBE TP SCH ×2 (09:46→21:37)
[2020-09-30] MEDS: SENNOSIDES 8.6MG TABLET (FP) PO SCH (21:33)
[2020-09-30] MEDS: LACTULOSE 20 GM/30 ML UDC (FOR ORAL USE ONLY) PO PRN (21:33)
[2020-09-30] MEDS: THIAMINE HCL 100 MG TABLET (FP) PO SCH (21:33)
[2020-09-30] MEDS: MELATONIN 5 MG TABLETS PO SCH (21:37)
[2020-09-30] MEDS: HYDROCORTISONE 2.5% TOPICAL CREAM 30 GM TUBE RC SCH (21:41)
[2020-10-01 07:15] VITALS: PULSE 95; TEMP 96.9
[2020-10-01] MEDS: GABAPENTIN 100 MG CAPSULE PO SCH (07:28)
[2020-10-01] MEDS: FAMOTIDINE 20 MG TABLET PO SCH (07:28)
[2020-10-01] MEDS: ACETAMINOPHEN 325 MG TABLET (FP) PO PRN (07:30)
[2020-10-01] MEDS: ARTIFICIAL TEARS (POLYVINYL ALCOHOL) OPTH DROPS OU SCH (07:31)
[2020-10-01] MEDS: MENTHOL/PHENOL 1 EACH UD MM PRN (07:31)
[2020-10-01] MEDS: BACITRACIN 0.9 GM PACKET TP SCH (09:37)
[2020-10-01] MEDS: HYDROCORTISONE 1% TOPICAL CREAM 30 GM TUBE TP SCH (09:37)
[2020-10-01] MEDS: FLUTICASONE PROP 0.05% 16 GM NASAL SPRAY NS SCH (09:37)
[2020-10-01] MEDS: METHYL SALICYLATE/MENTHOL OINT 30 GM TUBE TP SCH (09:37)
[2020-10-01] MEDS: LORATADINE 10 MG TABLET PO SCH (09:37)
[2020-10-01] MEDS: NICOTINE 7 MG/24 HOURS TOPICAL PATCH TD SCH (09:37)
[2020-10-01] MEDS: PRENATAL VITAMINS W/ FOLIC ACID TABLET (FP) PO SCH (09:38)
[2020-10-01] MEDS: amLODIPine BESYLATE 10 MG TABLET (FP) PO SCH (09:38)
[2020-10-01] MEDS: NAPROXEN 500 MG TABLET PO PRN (09:38)
[2020-10-01] MEDS ORDERED: PT OWN MED DRAWER 7, Y5N ONE (09:40)
[2020-10-01 12:22] VITALS: BP 154/81
== END 2020-10-01 09:45 | disposition home or self-care (01) | DRG 772 ==
LOC: YASAS 12:15 → Y5N 12:16
PROVIDERS: ADMIT Allergy & Immunology; ATTEND Allergy & Immunology
PROC: HZ42ZZZ Group Counseling for Substance Abuse Treatment, Cognitive-Behavioral (ICD-10-PCS; principal; 2020-09-17)
DX: F10.20 Alcohol dependence, uncomplicated (principal); F14.20 Cocaine dependence, uncomplicated; F12.20 Cannabis dependence, uncomplicated; F17.210 Nicotine dependence, cigarettes, uncomplicated; G62.9 Polyneuropathy, unspecified; I10 Essential (primary) hypertension; K21.9 Gastro-esophageal reflux disease without esophagitis; J30.9 Allergic rhinitis, unspecified; H04.123 Dry eye syndrome of bilateral lacrimal glands; K64.9 Unspecified hemorrhoids; E66.9 Obesity, unspecified; Z68.28 Body mass index [BMI] 28.0-28.9, adult; Z88.0 Allergy status to penicillin; Z88.7 Allergy status to serum and vaccine; Z91.018 Allergy to other foods
CPT/HCPCS: C9803; U0003; U0005

== ENCOUNTER 2020-11-14 17:51 | Inpatient (IN) | payer OTHER ==
[2020-11-14 19:13] VITALS: BMI 29.7
[2020-11-14] MEDS ORDERED: hydrOXYzine PAMOATE 25 MG CAPSULE (FP) PO PRN (19:58)
[2020-11-14] MEDS ORDERED: IBUPROFEN 400 MG TABLET (FP) PO PRN (19:58)
[2020-11-14] MEDS ORDERED: NICOTINE POLACRILEX 2 MG GUM BUC PRN (19:58)
[2020-11-14] MEDS ORDERED: MAGNESIUM CITRATE 300 ML BOTTLE PO PRN (19:58)
[2020-11-14] MEDS ORDERED: METHOCARBAMOL 500 MG TABLET PO PRN (19:58)
[2020-11-14] MEDS ORDERED: ONDANSETRON *ODT* 4 MG TABLET SL PRN (19:58)
[2020-11-14] MEDS ORDERED: BISMUTH SUBSALICYLATE 524 MG/30 ML PO PRN (19:58)
[2020-11-14] MEDS ORDERED: ACETAMINOPHEN 325 MG TABLET (FP) PO PRN (19:58)
[2020-11-14] MEDS ORDERED: MAGNESIUM HYDROX 2400MG/30ML ORAL SUSPENSION 30 ML CUP PO PRN (19:58)
[2020-11-14] MEDS ORDERED: NAPROXEN 500 MG TABLET PO PRN (20:00)
[2020-11-14] MEDS ORDERED: diazePAM 5 MG TABLET PO ONE (20:02)
[2020-11-14] MEDS ORDERED: diazePAM 5 MG TABLET PO PRN (20:02)
[2020-11-15] MEDS: MAG HYDROX/AL HYDROX/SIMETH 30 ML UNIT-DOSE CUP PO PRN ×2 (07:16→18:08)
[2020-11-15] MEDS: ARTIFICIAL TEARS (POLYVINYL ALCOHOL) OPTH DROPS OU SCH ×4 (08:25→23:50)
[2020-11-15] MEDS: diazePAM 5 MG TABLET PO SCH ×4 (08:26→23:51)
[2020-11-15] MEDS: GABAPENTIN 100 MG CAPSULE PO SCH ×3 (08:26→23:50)
[2020-11-15] MEDS: MELATONIN 5 MG TABLETS PO SCH ×2 (08:26→23:50)
[2020-11-15] MEDS: THIAMINE HCL 100 MG TABLET (FP) PO SCH ×2 (08:26→23:51)
[2020-11-15] MEDS: amLODIPine BESYLATE 10 MG TABLET (FP) PO SCH (10:29)
[2020-11-15] MEDS: PRENATAL VITAMINS W/ FOLIC ACID TABLET (FP) PO SCH (10:29)
[2020-11-15] MEDS ORDERED: PANTOPRAZOLE 40 MG TABLET PO ONE (10:30)
[2020-11-15] MEDS: LORATADINE 10 MG TABLET PO PRN (11:38)
[2020-11-15 11:41] LABS: HEMATOCRIT 39.1 % (35.4-49); HEMOGLOBIN 12.9 GM/dL (11.7-16.9); MCH 30.2 pg (25.7-33.7); MCHC 32.8 g/dl (32.0-35.9); MEAN CELL VOLUME 91.9 fl (80-96); MEAN PLT VOLUME 8.6 fl (7.5-11.1); PLATELET COUNT 202 10^3/uL (134-434); RBC 4.26 M/mm3 (4.00-5.60); WHITE BLOOD COUNT 6.5 K/mm3 (4.0-10.0)
[2020-11-15 12:07] LABS: ALBUMIN 3.8 g/dl (3.4-5.0); BLOOD UREA NITROGEN 25.6 mg/dL (7-18); CALCIUM 8.2 mg/dL (8.5-10.1)
[2020-11-15 12:09] LABS: CREATININE 1.3 mg/dL (0.55-1.3)
[2020-11-15 12:10] LABS: BILIRUBIN,TOTAL 0.5 mg/dL (0.2-1)
[2020-11-15 12:11] LABS: TOT PROT 7.4 g/dl (6.4-8.2)
[2020-11-16] MEDS: diazePAM 5 MG TABLET PO SCH ×3 (05:43→22:23)
[2020-11-16] MEDS: ACETAMINOPHEN 325 MG TABLET (FP) PO PRN (05:43)
[2020-11-16] MEDS: ARTIFICIAL TEARS (POLYVINYL ALCOHOL) OPTH DROPS OU SCH ×3 (06:03→22:22)
[2020-11-16] MEDS: PANTOPRAZOLE 40 MG TABLET PO SCH (06:15)
[2020-11-16] MEDS: MENTHOL/PHENOL 1 EACH UD MM PRN ×2 (07:42→14:41)
[2020-11-16] MEDS ORDERED: HYDROCORTISONE 0.5% TOPICAL CREAM 30 GM TUBE TP PRN (10:09)
[2020-11-16] MEDS: PRENATAL VITAMINS W/ FOLIC ACID TABLET (FP) PO SCH (10:32)
[2020-11-16] MEDS: amLODIPine BESYLATE 10 MG TABLET (FP) PO SCH (10:33)
[2020-11-16] MEDS: GABAPENTIN 100 MG CAPSULE PO SCH ×2 (10:33→22:23)
[2020-11-16] MEDS: SODIUM CHLORIDE NASAL SPRAY 44 ML BOTTLE NS PRN (10:34)
[2020-11-16] MEDS: HYDROCORTISONE 2.5% TOPICAL CREAM 30 GM TUBE RC SCH (13:46)
[2020-11-16] MEDS: MAG HYDROX/AL HYDROX/SIMETH 30 ML UNIT-DOSE CUP PO PRN (14:41)
[2020-11-16] MEDS: LORATADINE 10 MG TABLET PO PRN (16:57)
[2020-11-16] MEDS ORDERED: diphenhydrAMINE HCL 50 MG CAPSULE PO PRN (20:49)
[2020-11-16] MEDS: diphenhydrAMINE HCL 25 MG CAPSULE (FP) PO PRN (22:23)
[2020-11-16] MEDS: THIAMINE HCL 100 MG TABLET (FP) PO SCH (22:23)
[2020-11-16] MEDS: MELATONIN 5 MG TABLETS PO SCH (22:25)
[2020-11-17] MEDS: PANTOPRAZOLE 40 MG TABLET PO SCH (06:54)
[2020-11-17] MEDS: diphenhydrAMINE HCL 25 MG CAPSULE (FP) PO PRN ×2 (06:54→22:16)
[2020-11-17] MEDS: ACETAMINOPHEN 325 MG TABLET (FP) PO PRN (06:55)
[2020-11-17] MEDS: ARTIFICIAL TEARS (POLYVINYL ALCOHOL) OPTH DROPS OU SCH ×3 (06:55→22:16)
[2020-11-17] MEDS: diazePAM 5 MG TABLET PO SCH ×2 (06:59→17:07)
[2020-11-17] MEDS: PRENATAL VITAMINS W/ FOLIC ACID TABLET (FP) PO SCH (10:08)
[2020-11-17] MEDS: amLODIPine BESYLATE 10 MG TABLET (FP) PO SCH (10:09)
[2020-11-17] MEDS: GABAPENTIN 100 MG CAPSULE PO SCH ×2 (10:09→22:16)
[2020-11-17] MEDS: MAG HYDROX/AL HYDROX/SIMETH 30 ML UNIT-DOSE CUP PO PRN (10:10)
[2020-11-17] MEDS: LORATADINE 10 MG TABLET PO PRN (10:10)
[2020-11-17] MEDS: SODIUM CHLORIDE NASAL SPRAY 44 ML BOTTLE NS PRN ×2 (10:12→22:17)
[2020-11-17] MEDS: HYDROCORTISONE 2.5% TOPICAL CREAM 30 GM TUBE RC SCH (10:12)
[2020-11-17] MEDS: THIAMINE HCL 100 MG TABLET (FP) PO SCH (22:16)
[2020-11-17] MEDS: MELATONIN 5 MG TABLETS PO SCH (22:19)
[2020-11-18] MEDS: ARTIFICIAL TEARS (POLYVINYL ALCOHOL) OPTH DROPS OU SCH ×2 (05:42→14:07)
[2020-11-18] MEDS: diphenhydrAMINE HCL 25 MG CAPSULE (FP) PO PRN (05:42)
[2020-11-18] MEDS: ACETAMINOPHEN 325 MG TABLET (FP) PO PRN (05:42)
[2020-11-18] MEDS ORDERED: diazePAM 5 MG TABLET PO ONE (06:00)
[2020-11-18] MEDS: PANTOPRAZOLE 40 MG TABLET PO SCH (06:05)
[2020-11-18] MEDS: PRENATAL VITAMINS W/ FOLIC ACID TABLET (FP) PO SCH (10:21)
[2020-11-18] MEDS: GABAPENTIN 100 MG CAPSULE PO SCH (10:21)
[2020-11-18] MEDS: amLODIPine BESYLATE 10 MG TABLET (FP) PO SCH (10:21)
[2020-11-18] MEDS: LORATADINE 10 MG TABLET PO PRN (10:21)
[2020-11-18] MEDS: HYDROCORTISONE 2.5% TOPICAL CREAM 30 GM TUBE RC SCH (10:22)
[2020-11-18] MEDS: MENTHOL/PHENOL 1 EACH UD MM PRN (10:22)
[2020-11-18 13:00] VITALS: BP 148/93; PULSE 109; TEMP 97.7
[2020-11-18] MEDS: MAG HYDROX/AL HYDROX/SIMETH 30 ML UNIT-DOSE CUP PO PRN (13:40)
== END 2020-11-18 14:01 | disposition other institution (70) | DRG 775 ==
LOC: YASAS 17:51 → Y3N 20:17
PROVIDERS: ADMIT Allergy & Immunology; ATTEND Allergy & Immunology
PROC: HZ2ZZZZ Detoxification Services for Substance Abuse Treatment (ICD-10-PCS; principal; 2020-11-14)
DX: F10.230 Alcohol dependence with withdrawal, uncomplicated (principal); F10.220 Alcohol dependence with intoxication, uncomplicated; F17.210 Nicotine dependence, cigarettes, uncomplicated; I10 Essential (primary) hypertension; J30.89 Other allergic rhinitis; K29.70 Gastritis, unspecified, without bleeding; K21.9 Gastro-esophageal reflux disease without esophagitis; Z86.19 Personal history of other infectious and parasitic diseases; Z88.0 Allergy status to penicillin; Z88.7 Allergy status to serum and vaccine; Z91.018 Allergy to other foods
CPT/HCPCS: 36415; 80053; 85027; 86593; 86780; C9803; U0003; U0005

== ENCOUNTER 2020-11-18 14:04 | Inpatient (IN) | payer OTHER ==
[2020-11-18] MEDS ORDERED: LOPERAMIDE HCL 2 MG CAPSULE PO PRN (14:55)
[2020-11-18] MEDS ORDERED: MAGNESIUM CITRATE 300 ML BOTTLE PO PRN (14:55)
[2020-11-18] MEDS ORDERED: P-EPHED 60MG/TRIPROLIDI 2.5MG TABLET PO PRN (14:55)
[2020-11-18] MEDS ORDERED: NICOTINE POLACRILEX 2 MG GUM BUC PRN (14:55)
[2020-11-18] MEDS ORDERED: IBUPROFEN 400 MG TABLET (FP) PO PRN (14:55)
[2020-11-18] MEDS ORDERED: guaiFENesin 200 MG/10 ML 10 ML UNIT-DOSE CUPS PO PRN (14:55)
[2020-11-18] MEDS ORDERED: HYDROCORTISONE 0.5% TOPICAL OINTMENT TUBE TP PRN (14:59)
[2020-11-18] MEDS: hydrOXYzine PAMOATE 25 MG CAPSULE (FP) PO SCH ×2 (17:09→21:27)
[2020-11-18] MEDS: METHOCARBAMOL 500 MG TABLET PO SCH ×2 (17:09→21:27)
[2020-11-18] MEDS: MAG HYDROX/AL HYDROX/SIMETH 30 ML UNIT-DOSE CUP PO PRN (19:58)
[2020-11-18] MEDS: GABAPENTIN 100 MG CAPSULE PO SCH (21:25)
[2020-11-18] MEDS: diphenhydrAMINE HCL 25 MG CAPSULE (FP) PO PRN (21:26)
[2020-11-18] MEDS: NAPROXEN 500 MG TABLET PO PRN (21:26)
[2020-11-18] MEDS: ARTIFICIAL TEARS (POLYVINYL ALCOHOL) OPTH DROPS OU SCH (21:27)
[2020-11-18] MEDS: THIAMINE HCL 100 MG TABLET (FP) PO SCH (21:49)
[2020-11-18] MEDS ORDERED: MELATONIN 5 MG TABLETS PO SCH (22:00)
[2020-11-18 22:48] LABS: URINE APPEARANCE CLEAR; URINE BILIRUBIN NEGATIVE (NEGATIVE); URINE COLOR YELLOW; URINE GLUCOSE (UA) NEGATIVE (NEGATIVE); URINE KETONE TRACE (NEGATIVE); URINE LEUK ESTERASE NEGATIVE (NEGATIVE); URINE NITRITE NEGATIVE (NEGATIVE); URINE PROTEIN NEGATIVE (NEGATIVE)
[2020-11-19] MEDS: GABAPENTIN 100 MG CAPSULE PO SCH ×3 (06:31→21:29)
[2020-11-19] MEDS: hydrOXYzine PAMOATE 25 MG CAPSULE (FP) PO SCH ×2 (06:31→10:11)
[2020-11-19] MEDS: NAPROXEN 500 MG TABLET PO PRN ×2 (06:31→21:29)
[2020-11-19] MEDS: diphenhydrAMINE HCL 25 MG CAPSULE (FP) PO PRN (06:31)
[2020-11-19] MEDS: ARTIFICIAL TEARS (POLYVINYL ALCOHOL) OPTH DROPS OU SCH ×3 (06:31→21:33)
[2020-11-19] MEDS ORDERED: PANTOPRAZOLE 40 MG TABLET PO SCH (10:00)
[2020-11-19] MEDS ORDERED: NICOTINE 7 MG/24 HOURS TOPICAL PATCH TD SCH (10:00)
[2020-11-19] MEDS: PRENATAL VITAMINS W/ FOLIC ACID TABLET (FP) PO SCH (10:11)
[2020-11-19] MEDS: amLODIPine BESYLATE 10 MG TABLET (FP) PO SCH (10:11)
[2020-11-19] MEDS: METHOCARBAMOL 500 MG TABLET PO SCH ×4 (10:11→21:30)
[2020-11-19] MEDS: NICOTINE 21 MG/24 HOURS TOPICAL PATCH TD SCH (10:11)
[2020-11-19] MEDS: HYDROCORTISONE 0.5% TOPICAL CREAM 30 GM TUBE TP PRN (10:12)
[2020-11-19] MEDS: LORATADINE 10 MG TABLET PO PRN (10:14)
[2020-11-19] MEDS: SODIUM CHLORIDE NASAL SPRAY 44 ML BOTTLE NS PRN (10:15)
[2020-11-19] MEDS: MAG HYDROX/AL HYDROX/SIMETH 30 ML UNIT-DOSE CUP PO PRN (10:31)
[2020-11-19] MEDS ORDERED: hydrOXYzine PAMOATE 25 MG CAPSULE (FP) PO PRN (11:38)
[2020-11-19] MEDS ORDERED: diphenhydrAMINE HCL 50 MG CAPSULE PO PRN (11:41)
[2020-11-19] MEDS: ACETAMINOPHEN 325 MG TABLET (FP) PO PRN (15:52)
[2020-11-19] MEDS: MENTHOL/PHENOL 1 EACH UD MM PRN (15:53)
[2020-11-19] MEDS ORDERED: diphenhydrAMINE HCL 25 MG CAPSULE (FP) PO ONE (18:31)
[2020-11-19] MEDS: THIAMINE HCL 100 MG TABLET (FP) PO SCH (21:30)
[2020-11-20] MEDS ORDERED: diphenhydrAMINE HCL 25 MG CAPSULE (FP) PO ONE ×3 (04:06→18:25)
[2020-11-20] MEDS: PANTOPRAZOLE 40 MG TABLET PO SCH (06:03)
[2020-11-20] MEDS: ARTIFICIAL TEARS (POLYVINYL ALCOHOL) OPTH DROPS OU SCH ×3 (06:03→21:08)
[2020-11-20] MEDS: GABAPENTIN 100 MG CAPSULE PO SCH ×3 (06:03→21:06)
[2020-11-20] MEDS: ACETAMINOPHEN 325 MG TABLET (FP) PO PRN (06:05)
[2020-11-20] MEDS: MENTHOL/PHENOL 1 EACH UD MM PRN ×2 (06:05→09:48)
[2020-11-20] MEDS: NICOTINE 21 MG/24 HOURS TOPICAL PATCH TD SCH (09:47)
[2020-11-20] MEDS: amLODIPine BESYLATE 10 MG TABLET (FP) PO SCH (09:47)
[2020-11-20] MEDS: NAPROXEN 500 MG TABLET PO PRN ×2 (09:47→21:06)
[2020-11-20] MEDS: PRENATAL VITAMINS W/ FOLIC ACID TABLET (FP) PO SCH (09:47)
[2020-11-20] MEDS: METHOCARBAMOL 500 MG TABLET PO SCH ×4 (09:47→21:08)
[2020-11-20] MEDS: LORATADINE 10 MG TABLET PO PRN (09:47)
[2020-11-20] MEDS: HYDROCORTISONE 0.5% TOPICAL CREAM 30 GM TUBE TP PRN (09:48)
[2020-11-20] MEDS: SODIUM CHLORIDE NASAL SPRAY 44 ML BOTTLE NS PRN (09:49)
[2020-11-20] MEDS: MAG HYDROX/AL HYDROX/SIMETH 30 ML UNIT-DOSE CUP PO PRN ×2 (13:53→21:08)
[2020-11-20] MEDS: LIDOCAINE 5% TOPICAL PATCH TP SCH (15:42)
[2020-11-20] MEDS: diphenhydrAMINE HCL 50 MG CAPSULE PO PRN (21:06)
[2020-11-20] MEDS: LIDOCAINE PATCH REMOVAL MC SCH (21:08)
[2020-11-20] MEDS: THIAMINE HCL 100 MG TABLET (FP) PO SCH (21:30)
[2020-11-21] MEDS: GABAPENTIN 100 MG CAPSULE PO SCH ×3 (06:18→21:48)
[2020-11-21] MEDS: ACETAMINOPHEN 325 MG TABLET (FP) PO PRN (06:19)
[2020-11-21] MEDS: diphenhydrAMINE HCL 50 MG CAPSULE PO PRN (06:19)
[2020-11-21] MEDS: PANTOPRAZOLE 40 MG TABLET PO SCH (06:19)
[2020-11-21] MEDS: MENTHOL/PHENOL 1 EACH UD MM PRN ×2 (06:21→21:51)
[2020-11-21] MEDS: ARTIFICIAL TEARS (POLYVINYL ALCOHOL) OPTH DROPS OU SCH ×3 (06:21→21:49)
[2020-11-21] MEDS: LIDOCAINE 5% TOPICAL PATCH TP SCH (09:32)
[2020-11-21] MEDS: LORATADINE 10 MG TABLET PO PRN (09:33)
[2020-11-21] MEDS: METHOCARBAMOL 500 MG TABLET PO SCH ×4 (09:33→21:48)
[2020-11-21] MEDS: PRENATAL VITAMINS W/ FOLIC ACID TABLET (FP) PO SCH (09:33)
[2020-11-21] MEDS: NICOTINE 21 MG/24 HOURS TOPICAL PATCH TD SCH (09:33)
[2020-11-21] MEDS: NAPROXEN 500 MG TABLET PO PRN (09:33)
[2020-11-21] MEDS: amLODIPine BESYLATE 10 MG TABLET (FP) PO SCH (09:33)
[2020-11-21] MEDS: SODIUM CHLORIDE NASAL SPRAY 44 ML BOTTLE NS PRN (09:34)
[2020-11-21] MEDS: MAG HYDROX/AL HYDROX/SIMETH 30 ML UNIT-DOSE CUP PO PRN (15:41)
[2020-11-21] MEDS: THIAMINE HCL 100 MG TABLET (FP) PO SCH (21:48)
[2020-11-21] MEDS: LIDOCAINE PATCH REMOVAL MC SCH (21:49)
[2020-11-21] MEDS ORDERED: diphenhydrAMINE HCL 25 MG CAPSULE (FP) PO ONE (21:50)
[2020-11-22] MEDS: GABAPENTIN 100 MG CAPSULE PO SCH ×3 (06:53→21:08)
[2020-11-22] MEDS: diphenhydrAMINE HCL 50 MG CAPSULE PO PRN ×2 (06:53→21:10)
[2020-11-22] MEDS: ACETAMINOPHEN 325 MG TABLET (FP) PO PRN ×2 (06:53→14:01)
[2020-11-22] MEDS: ARTIFICIAL TEARS (POLYVINYL ALCOHOL) OPTH DROPS OU SCH ×3 (06:53→21:10)
[2020-11-22] MEDS: PANTOPRAZOLE 40 MG TABLET PO SCH (06:55)
[2020-11-22] MEDS: SODIUM CHLORIDE NASAL SPRAY 44 ML BOTTLE NS PRN ×2 (09:45→21:11)
[2020-11-22] MEDS: NAPROXEN 500 MG TABLET PO PRN ×2 (09:45→21:09)
[2020-11-22] MEDS: NICOTINE 21 MG/24 HOURS TOPICAL PATCH TD SCH (09:45)
[2020-11-22] MEDS: LIDOCAINE 5% TOPICAL PATCH TP SCH (09:45)
[2020-11-22] MEDS: PRENATAL VITAMINS W/ FOLIC ACID TABLET (FP) PO SCH (09:45)
[2020-11-22] MEDS: amLODIPine BESYLATE 10 MG TABLET (FP) PO SCH (09:45)
[2020-11-22] MEDS: METHOCARBAMOL 500 MG TABLET PO SCH ×4 (09:45→21:08)
[2020-11-22] MEDS: LORATADINE 10 MG TABLET PO PRN (09:46)
[2020-11-22] MEDS: THIAMINE HCL 100 MG TABLET (FP) PO SCH (21:07)
[2020-11-22] MEDS ORDERED: diphenhydrAMINE HCL 25 MG CAPSULE (FP) PO ONE (21:09)
[2020-11-22] MEDS: LIDOCAINE PATCH REMOVAL MC SCH (21:10)
[2020-11-23] MEDS: ACETAMINOPHEN 325 MG TABLET (FP) PO PRN (06:15)
[2020-11-23] MEDS: GABAPENTIN 100 MG CAPSULE PO SCH ×3 (06:15→21:37)
[2020-11-23] MEDS: diphenhydrAMINE HCL 50 MG CAPSULE PO PRN ×2 (06:15→21:36)
[2020-11-23] MEDS: ARTIFICIAL TEARS (POLYVINYL ALCOHOL) OPTH DROPS OU SCH ×3 (06:15→21:38)
[2020-11-23] MEDS: PANTOPRAZOLE 40 MG TABLET PO SCH (06:15)
[2020-11-23] MEDS: NAPROXEN 500 MG TABLET PO PRN ×2 (09:52→21:36)
[2020-11-23] MEDS: LORATADINE 10 MG TABLET PO PRN (09:52)
[2020-11-23] MEDS: METHOCARBAMOL 500 MG TABLET PO SCH ×4 (09:52→21:38)
[2020-11-23] MEDS: amLODIPine BESYLATE 10 MG TABLET (FP) PO SCH (09:52)
[2020-11-23] MEDS: PRENATAL VITAMINS W/ FOLIC ACID TABLET (FP) PO SCH (09:52)
[2020-11-23] MEDS: SODIUM CHLORIDE NASAL SPRAY 44 ML BOTTLE NS PRN (09:54)
[2020-11-23] MEDS: NICOTINE 21 MG/24 HOURS TOPICAL PATCH TD SCH (09:55)
[2020-11-23] MEDS: LIDOCAINE 5% TOPICAL PATCH TP SCH (09:55)
[2020-11-23] MEDS: MAG HYDROX/AL HYDROX/SIMETH 30 ML UNIT-DOSE CUP PO PRN ×2 (13:48→21:38)
[2020-11-23] MEDS: CARBAMIDE PEROXIDE 6.5% OTIC 15 ML BOTTLE AU SCH ×2 (14:59→21:38)
[2020-11-23] MEDS: LIDOCAINE PATCH REMOVAL MC SCH (21:38)
[2020-11-23] MEDS: THIAMINE HCL 100 MG TABLET (FP) PO SCH (21:39)
[2020-11-24] MEDS: PANTOPRAZOLE 40 MG TABLET PO SCH (06:44)
[2020-11-24] MEDS: GABAPENTIN 100 MG CAPSULE PO SCH ×3 (06:44→22:00)
[2020-11-24] MEDS: ARTIFICIAL TEARS (POLYVINYL ALCOHOL) OPTH DROPS OU SCH ×3 (06:45→22:00)
[2020-11-24] MEDS: ACETAMINOPHEN 325 MG TABLET (FP) PO PRN (06:45)
[2020-11-24] MEDS: PRENATAL VITAMINS W/ FOLIC ACID TABLET (FP) PO SCH (09:54)
[2020-11-24] MEDS: NICOTINE 21 MG/24 HOURS TOPICAL PATCH TD SCH (09:54)
[2020-11-24] MEDS: CARBAMIDE PEROXIDE 6.5% OTIC 15 ML BOTTLE AU SCH ×2 (09:54→22:00)
[2020-11-24] MEDS: NAPROXEN 500 MG TABLET PO PRN (09:54)
[2020-11-24] MEDS: amLODIPine BESYLATE 10 MG TABLET (FP) PO SCH (09:54)
[2020-11-24] MEDS: METHOCARBAMOL 500 MG TABLET PO SCH ×4 (09:54→22:00)
[2020-11-24] MEDS: diphenhydrAMINE HCL 50 MG CAPSULE PO PRN ×2 (09:56→14:33)
[2020-11-24] MEDS ORDERED: diphenhydrAMINE HCL 25 MG CAPSULE (FP) PO ONE ×3 (09:56→19:46)
[2020-11-24] MEDS: LIDOCAINE 5% TOPICAL PATCH TP SCH (09:56)
[2020-11-24] MEDS: HYDROCORTISONE 0.5% TOPICAL CREAM 30 GM TUBE TP PRN (09:58)
[2020-11-24] MEDS: MAG HYDROX/AL HYDROX/SIMETH 30 ML UNIT-DOSE CUP PO PRN (14:32)
[2020-11-24] MEDS: LIDOCAINE PATCH REMOVAL MC SCH (22:00)
[2020-11-24] MEDS: THIAMINE HCL 100 MG TABLET (FP) PO SCH (22:00)
[2020-11-25] MEDS ORDERED: diphenhydrAMINE HCL 25 MG CAPSULE (FP) PO ONE ×3 (03:07→21:40)
[2020-11-25] MEDS: diphenhydrAMINE HCL 50 MG CAPSULE PO PRN ×2 (06:01→21:39)
[2020-11-25] MEDS: GABAPENTIN 100 MG CAPSULE PO SCH ×3 (06:01→21:38)
[2020-11-25] MEDS: PANTOPRAZOLE 40 MG TABLET PO SCH (06:01)
[2020-11-25] MEDS: MENTHOL/PHENOL 1 EACH UD MM PRN (06:01)
[2020-11-25] MEDS: ACETAMINOPHEN 325 MG TABLET (FP) PO PRN ×2 (06:01→14:05)
[2020-11-25] MEDS: ARTIFICIAL TEARS (POLYVINYL ALCOHOL) OPTH DROPS OU SCH ×3 (06:02→21:42)
[2020-11-25] MEDS: METHOCARBAMOL 500 MG TABLET PO SCH ×4 (10:03→21:38)
[2020-11-25] MEDS: CARBAMIDE PEROXIDE 6.5% OTIC 15 ML BOTTLE AU SCH ×2 (10:03→21:42)
[2020-11-25] MEDS: amLODIPine BESYLATE 10 MG TABLET (FP) PO SCH (10:03)
[2020-11-25] MEDS: LIDOCAINE 5% TOPICAL PATCH TP SCH (10:03)
[2020-11-25] MEDS: SODIUM CHLORIDE NASAL SPRAY 44 ML BOTTLE NS PRN ×2 (10:03→21:40)
[2020-11-25] MEDS: LORATADINE 10 MG TABLET PO PRN (10:03)
[2020-11-25] MEDS: NAPROXEN 500 MG TABLET PO PRN ×2 (10:03→21:39)
[2020-11-25] MEDS: PRENATAL VITAMINS W/ FOLIC ACID TABLET (FP) PO SCH (10:03)
[2020-11-25] MEDS: NICOTINE 21 MG/24 HOURS TOPICAL PATCH TD SCH (10:03)
[2020-11-25] MEDS: THIAMINE HCL 100 MG TABLET (FP) PO SCH (21:42)
[2020-11-25] MEDS: LIDOCAINE PATCH REMOVAL MC SCH (21:42)
[2020-11-26] MEDS ORDERED: diphenhydrAMINE HCL 25 MG CAPSULE (FP) PO ONE ×2 (03:40→08:40)
[2020-11-26] MEDS: GABAPENTIN 100 MG CAPSULE PO SCH ×3 (06:40→23:00)
[2020-11-26] MEDS: PANTOPRAZOLE 40 MG TABLET PO SCH (06:40)
[2020-11-26] MEDS: MENTHOL/PHENOL 1 EACH UD MM PRN (06:41)
[2020-11-26] MEDS: diphenhydrAMINE HCL 50 MG CAPSULE PO PRN (06:41)
[2020-11-26] MEDS: ACETAMINOPHEN 325 MG TABLET (FP) PO PRN (06:41)
[2020-11-26] MEDS: ARTIFICIAL TEARS (POLYVINYL ALCOHOL) OPTH DROPS OU SCH ×3 (06:42→22:59)
[2020-11-26] MEDS: amLODIPine BESYLATE 10 MG TABLET (FP) PO SCH (09:46)
[2020-11-26] MEDS: NAPROXEN 500 MG TABLET PO PRN (09:46)
[2020-11-26] MEDS: PRENATAL VITAMINS W/ FOLIC ACID TABLET (FP) PO SCH (09:46)
[2020-11-26] MEDS: METHOCARBAMOL 500 MG TABLET PO SCH ×4 (09:46→23:00)
[2020-11-26] MEDS: SODIUM CHLORIDE NASAL SPRAY 44 ML BOTTLE NS PRN (09:47)
[2020-11-26] MEDS: LORATADINE 10 MG TABLET PO PRN (09:47)
[2020-11-26] MEDS: HYDROCORTISONE 0.5% TOPICAL CREAM 30 GM TUBE TP PRN (09:47)
[2020-11-26] MEDS: BENZOCAINE 28 GM HEMORRHOIDAL OINTMENT RC PRN (09:48)
[2020-11-26] MEDS: NICOTINE 21 MG/24 HOURS TOPICAL PATCH TD SCH (09:48)
[2020-11-26] MEDS: CARBAMIDE PEROXIDE 6.5% OTIC 15 ML BOTTLE AU SCH ×2 (09:48→23:00)
[2020-11-26] MEDS: LIDOCAINE 5% TOPICAL PATCH TP SCH (09:48)
[2020-11-26] MEDS: MAG HYDROX/AL HYDROX/SIMETH 30 ML UNIT-DOSE CUP PO PRN (13:52)
[2020-11-26] MEDS: LIDOCAINE PATCH REMOVAL MC SCH (23:00)
[2020-11-26] MEDS: THIAMINE HCL 100 MG TABLET (FP) PO SCH (23:00)
[2020-11-27] MEDS ORDERED: diphenhydrAMINE HCL 25 MG CAPSULE (FP) PO ONE ×2 (03:12→21:39)
[2020-11-27] MEDS: GABAPENTIN 100 MG CAPSULE PO SCH ×3 (06:09→21:40)
[2020-11-27] MEDS: ACETAMINOPHEN 325 MG TABLET (FP) PO PRN (06:09)
[2020-11-27] MEDS: PANTOPRAZOLE 40 MG TABLET PO SCH (06:09)
[2020-11-27] MEDS: MENTHOL/PHENOL 1 EACH UD MM PRN (06:09)
[2020-11-27] MEDS: ARTIFICIAL TEARS (POLYVINYL ALCOHOL) OPTH DROPS OU SCH ×3 (06:09→21:42)
[2020-11-27] MEDS: diphenhydrAMINE HCL 50 MG CAPSULE PO PRN ×2 (06:09→21:40)
[2020-11-27] MEDS: LORATADINE 10 MG TABLET PO PRN (09:49)
[2020-11-27] MEDS: PRENATAL VITAMINS W/ FOLIC ACID TABLET (FP) PO SCH (09:49)
[2020-11-27] MEDS: NAPROXEN 500 MG TABLET PO PRN ×2 (09:49→21:40)
[2020-11-27] MEDS: METHOCARBAMOL 500 MG TABLET PO SCH ×4 (09:49→21:40)
[2020-11-27] MEDS: NICOTINE 21 MG/24 HOURS TOPICAL PATCH TD SCH (09:49)
[2020-11-27] MEDS: LIDOCAINE 5% TOPICAL PATCH TP SCH (09:49)
[2020-11-27] MEDS: amLODIPine BESYLATE 10 MG TABLET (FP) PO SCH (09:49)
[2020-11-27] MEDS: CARBAMIDE PEROXIDE 6.5% OTIC 15 ML BOTTLE AU SCH ×2 (09:51→21:42)
[2020-11-27] MEDS: BENZOCAINE 28 GM HEMORRHOIDAL OINTMENT RC PRN (09:52)
[2020-11-27] MEDS: HYDROCORTISONE 0.5% TOPICAL CREAM 30 GM TUBE TP PRN (09:52)
[2020-11-27] MEDS: SODIUM CHLORIDE NASAL SPRAY 44 ML BOTTLE NS PRN (09:52)
[2020-11-27] MEDS: SIMETHICONE 80 MG TAB.CHEW (FP) PO PRN ×2 (13:58→21:39)
[2020-11-27] MEDS: THIAMINE HCL 100 MG TABLET (FP) PO SCH (21:38)
[2020-11-27] MEDS ORDERED: PT OWN MED DRAWER 7, Y5N ONE (21:41)
[2020-11-27] MEDS: LIDOCAINE PATCH REMOVAL MC SCH (21:42)
[2020-11-28] MEDS ORDERED: PT OWN MED DRAWER 7, Y5N ONE (03:02)
[2020-11-28] MEDS ORDERED: diphenhydrAMINE HCL 25 MG CAPSULE (FP) PO ONE ×2 (03:19→19:05)
[2020-11-28] MEDS: ARTIFICIAL TEARS (POLYVINYL ALCOHOL) OPTH DROPS OU SCH ×3 (06:51→21:09)
[2020-11-28] MEDS: GABAPENTIN 100 MG CAPSULE PO SCH ×3 (06:51→21:07)
[2020-11-28] MEDS: PANTOPRAZOLE 40 MG TABLET PO SCH (06:51)
[2020-11-28] MEDS: ACETAMINOPHEN 325 MG TABLET (FP) PO PRN (06:51)
[2020-11-28] MEDS: MENTHOL/PHENOL 1 EACH UD MM PRN ×2 (06:52→13:31)
[2020-11-28] MEDS: LIDOCAINE 5% TOPICAL PATCH TP SCH (09:35)
[2020-11-28] MEDS: METHOCARBAMOL 500 MG TABLET PO SCH ×4 (09:35→21:07)
[2020-11-28] MEDS: PRENATAL VITAMINS W/ FOLIC ACID TABLET (FP) PO SCH (09:35)
[2020-11-28] MEDS: NICOTINE 21 MG/24 HOURS TOPICAL PATCH TD SCH (09:35)
[2020-11-28] MEDS: NAPROXEN 500 MG TABLET PO PRN ×2 (09:35→21:07)
[2020-11-28] MEDS: amLODIPine BESYLATE 10 MG TABLET (FP) PO SCH (09:35)
[2020-11-28] MEDS: LORATADINE 10 MG TABLET PO PRN (09:35)
[2020-11-28] MEDS: CARBAMIDE PEROXIDE 6.5% OTIC 15 ML BOTTLE AU SCH ×2 (09:36→21:09)
[2020-11-28] MEDS: SODIUM CHLORIDE NASAL SPRAY 44 ML BOTTLE NS PRN (09:36)
[2020-11-28] MEDS: SIMETHICONE 80 MG TAB.CHEW (FP) PO PRN ×3 (09:37→21:08)
[2020-11-28] MEDS: BENZOCAINE 28 GM HEMORRHOIDAL OINTMENT RC PRN (13:30)
[2020-11-28] MEDS: THIAMINE HCL 100 MG TABLET (FP) PO SCH (21:09)
[2020-11-28] MEDS: diphenhydrAMINE HCL 50 MG CAPSULE PO PRN (21:09)
[2020-11-28] MEDS: LIDOCAINE PATCH REMOVAL MC SCH (21:09)
[2020-11-29] MEDS: GABAPENTIN 100 MG CAPSULE PO SCH ×3 (06:56→23:16)
[2020-11-29] MEDS: ARTIFICIAL TEARS (POLYVINYL ALCOHOL) OPTH DROPS OU SCH ×3 (06:56→23:16)
[2020-11-29] MEDS: ACETAMINOPHEN 325 MG TABLET (FP) PO PRN (06:57)
[2020-11-29] MEDS: PANTOPRAZOLE 40 MG TABLET PO SCH (06:57)
[2020-11-29] MEDS: MAGNESIUM HYDROX 2400MG/30ML ORAL SUSPENSION 30 ML CUP PO PRN (06:59)
[2020-11-29] MEDS: PRENATAL VITAMINS W/ FOLIC ACID TABLET (FP) PO SCH (10:13)
[2020-11-29] MEDS: amLODIPine BESYLATE 10 MG TABLET (FP) PO SCH (10:13)
[2020-11-29] MEDS: LORATADINE 10 MG TABLET PO PRN (10:13)
[2020-11-29] MEDS: NAPROXEN 500 MG TABLET PO PRN (10:13)
[2020-11-29] MEDS: METHOCARBAMOL 500 MG TABLET PO SCH ×4 (10:13→23:16)
[2020-11-29] MEDS: SIMETHICONE 80 MG TAB.CHEW (FP) PO PRN ×2 (10:14→14:54)
[2020-11-29] MEDS: LIDOCAINE 5% TOPICAL PATCH TP SCH (10:14)
[2020-11-29] MEDS: HYDROCORTISONE 0.5% TOPICAL CREAM 30 GM TUBE TP PRN (10:14)
[2020-11-29] MEDS: BENZOCAINE 28 GM HEMORRHOIDAL OINTMENT RC PRN (10:14)
[2020-11-29] MEDS: NICOTINE 21 MG/24 HOURS TOPICAL PATCH TD SCH (10:17)
[2020-11-29] MEDS: CARBAMIDE PEROXIDE 6.5% OTIC 15 ML BOTTLE AU SCH ×2 (10:17→23:16)
[2020-11-29] MEDS ORDERED: diphenhydrAMINE HCL 25 MG CAPSULE (FP) PO ONE ×2 (14:08→18:38)
[2020-11-29] MEDS: MAG HYDROX/AL HYDROX/SIMETH 30 ML UNIT-DOSE CUP PO PRN (16:44)
[2020-11-29] MEDS: THIAMINE HCL 100 MG TABLET (FP) PO SCH (23:16)
[2020-11-29] MEDS: LIDOCAINE PATCH REMOVAL MC SCH (23:16)
[2020-11-30] MEDS ORDERED: diphenhydrAMINE HCL 25 MG CAPSULE (FP) PO ONE ×2 (03:35→21:09)
[2020-11-30] MEDS: MAGNESIUM HYDROX 2400MG/30ML ORAL SUSPENSION 30 ML CUP PO PRN (06:43)
[2020-11-30] MEDS: GABAPENTIN 100 MG CAPSULE PO SCH ×3 (06:43→21:09)
[2020-11-30] MEDS: ACETAMINOPHEN 325 MG TABLET (FP) PO PRN (06:43)
[2020-11-30] MEDS: ARTIFICIAL TEARS (POLYVINYL ALCOHOL) OPTH DROPS OU SCH ×3 (06:43→21:10)
[2020-11-30] MEDS: diphenhydrAMINE HCL 50 MG CAPSULE PO PRN ×2 (06:43→21:10)
[2020-11-30] MEDS: PANTOPRAZOLE 40 MG TABLET PO SCH (06:43)
[2020-11-30] MEDS: MENTHOL/PHENOL 1 EACH UD MM PRN (06:43)
[2020-11-30] MEDS: PRENATAL VITAMINS W/ FOLIC ACID TABLET (FP) PO SCH (09:34)
[2020-11-30] MEDS: LORATADINE 10 MG TABLET PO PRN (09:34)
[2020-11-30] MEDS: SODIUM CHLORIDE NASAL SPRAY 44 ML BOTTLE NS PRN (09:35)
[2020-11-30] MEDS: NAPROXEN 500 MG TABLET PO PRN ×2 (09:35→21:09)
[2020-11-30] MEDS: SIMETHICONE 80 MG TAB.CHEW (FP) PO PRN (09:35)
[2020-11-30] MEDS: amLODIPine BESYLATE 10 MG TABLET (FP) PO SCH (09:35)
[2020-11-30] MEDS: BENZOCAINE 28 GM HEMORRHOIDAL OINTMENT RC PRN (09:35)
[2020-11-30] MEDS: METHOCARBAMOL 500 MG TABLET PO SCH ×4 (09:35→21:09)
[2020-11-30] MEDS: LIDOCAINE 5% TOPICAL PATCH TP SCH (09:35)
[2020-11-30] MEDS: NICOTINE 21 MG/24 HOURS TOPICAL PATCH TD SCH (09:36)
[2020-11-30] MEDS: CARBAMIDE PEROXIDE 6.5% OTIC 15 ML BOTTLE AU SCH ×2 (09:36→21:10)
[2020-11-30] MEDS: MAG HYDROX/AL HYDROX/SIMETH 30 ML UNIT-DOSE CUP PO PRN (14:30)
[2020-11-30] MEDS: LIDOCAINE PATCH REMOVAL MC SCH (21:10)
[2020-11-30] MEDS: THIAMINE HCL 100 MG TABLET (FP) PO SCH (21:10)
[2020-12-01] MEDS ORDERED: diphenhydrAMINE HCL 25 MG CAPSULE (FP) PO ONE (03:15)
[2020-12-01] MEDS: GABAPENTIN 100 MG CAPSULE PO SCH ×3 (06:31→23:35)
[2020-12-01] MEDS: MENTHOL/PHENOL 1 EACH UD MM PRN (06:31)
[2020-12-01] MEDS: ARTIFICIAL TEARS (POLYVINYL ALCOHOL) OPTH DROPS OU SCH ×3 (06:31→23:35)
[2020-12-01] MEDS: diphenhydrAMINE HCL 50 MG CAPSULE PO PRN (06:31)
[2020-12-01] MEDS: PANTOPRAZOLE 40 MG TABLET PO SCH (06:31)
[2020-12-01] MEDS: ACETAMINOPHEN 325 MG TABLET (FP) PO PRN (06:31)
[2020-12-01 06:56] VITALS: TEMP 97.8
[2020-12-01] MEDS: LIDOCAINE 5% TOPICAL PATCH TP SCH (10:07)
[2020-12-01] MEDS: NAPROXEN 500 MG TABLET PO PRN (10:08)
[2020-12-01] MEDS: LORATADINE 10 MG TABLET PO PRN (10:08)
[2020-12-01] MEDS: METHOCARBAMOL 500 MG TABLET PO SCH ×4 (10:08→23:36)
[2020-12-01] MEDS: PRENATAL VITAMINS W/ FOLIC ACID TABLET (FP) PO SCH (10:08)
[2020-12-01] MEDS: amLODIPine BESYLATE 10 MG TABLET (FP) PO SCH (10:08)
[2020-12-01] MEDS: SODIUM CHLORIDE NASAL SPRAY 44 ML BOTTLE NS PRN (10:09)
[2020-12-01] MEDS: CARBAMIDE PEROXIDE 6.5% OTIC 15 ML BOTTLE AU SCH ×2 (10:10→23:35)
[2020-12-01] MEDS: NICOTINE 21 MG/24 HOURS TOPICAL PATCH TD SCH (10:10)
[2020-12-01] MEDS: SIMETHICONE 80 MG TAB.CHEW (FP) PO PRN (14:59)
[2020-12-01] MEDS: MAG HYDROX/AL HYDROX/SIMETH 30 ML UNIT-DOSE CUP PO PRN (16:27)
[2020-12-01] MEDS: LIDOCAINE PATCH REMOVAL MC SCH (23:35)
[2020-12-01] MEDS: THIAMINE HCL 100 MG TABLET (FP) PO SCH (23:36)
[2020-12-02] MEDS ORDERED: diphenhydrAMINE HCL 25 MG CAPSULE (FP) PO ONE (03:13)
[2020-12-02] MEDS: diphenhydrAMINE HCL 50 MG CAPSULE PO PRN (06:42)
[2020-12-02] MEDS: ARTIFICIAL TEARS (POLYVINYL ALCOHOL) OPTH DROPS OU SCH (06:42)
[2020-12-02] MEDS: PANTOPRAZOLE 40 MG TABLET PO SCH (06:42)
[2020-12-02] MEDS: MENTHOL/PHENOL 1 EACH UD MM PRN (06:42)
[2020-12-02] MEDS: GABAPENTIN 100 MG CAPSULE PO SCH (06:42)
[2020-12-02] MEDS: ACETAMINOPHEN 325 MG TABLET (FP) PO PRN (06:43)
[2020-12-02 06:54] VITALS: BP 147/83; PULSE 96
[2020-12-02] MEDS ORDERED: PT OWN MED DRAWER 7, Y5N ONE (08:29)
[2020-12-02] MEDS: NAPROXEN 500 MG TABLET PO PRN (09:22)
[2020-12-02] MEDS: PRENATAL VITAMINS W/ FOLIC ACID TABLET (FP) PO SCH (09:23)
[2020-12-02] MEDS: amLODIPine BESYLATE 10 MG TABLET (FP) PO SCH (09:23)
[2020-12-02] MEDS: LIDOCAINE 5% TOPICAL PATCH TP SCH (09:23)
[2020-12-02] MEDS: LORATADINE 10 MG TABLET PO PRN (09:23)
[2020-12-02] MEDS: NICOTINE 21 MG/24 HOURS TOPICAL PATCH TD SCH (09:23)
[2020-12-02] MEDS: METHOCARBAMOL 500 MG TABLET PO SCH (09:23)
[2020-12-02] MEDS: CARBAMIDE PEROXIDE 6.5% OTIC 15 ML BOTTLE AU SCH (09:23)
== END 2020-12-02 09:35 | disposition home or self-care (01) | DRG 772 ==
LOC: YASAS 14:04 → Y3W 14:06
PROVIDERS: ADMIT Allergy & Immunology; ATTEND Allergy & Immunology
PROC: HZ42ZZZ Group Counseling for Substance Abuse Treatment, Cognitive-Behavioral (ICD-10-PCS; principal; 2020-11-18)
DX: F10.20 Alcohol dependence, uncomplicated (principal); F14.20 Cocaine dependence, uncomplicated; F12.20 Cannabis dependence, uncomplicated; F17.210 Nicotine dependence, cigarettes, uncomplicated; I10 Essential (primary) hypertension; K21.9 Gastro-esophageal reflux disease without esophagitis; H02.843 Edema of right eye, unspecified eyelid; H04.129 Dry eye syndrome of unspecified lacrimal gland; L29.9 Pruritus, unspecified
CPT/HCPCS: 81003

== ENCOUNTER 2021-01-12 16:07 | Inpatient (IN) | payer OTHER ==
[2021-01-12] MEDS ORDERED: MAGNESIUM CITRATE 300 ML BOTTLE PO PRN (20:19)
[2021-01-12] MEDS ORDERED: MAGNESIUM HYDROX 2400MG/30ML ORAL SUSPENSION 30 ML CUP PO PRN (20:19)
[2021-01-12] MEDS ORDERED: ACETAMINOPHEN 325 MG TABLET (FP) PO PRN (20:19)
[2021-01-12] MEDS ORDERED: ONDANSETRON *ODT* 4 MG TABLET SL PRN (20:19)
[2021-01-12] MEDS ORDERED: IBUPROFEN 400 MG TABLET (FP) PO PRN (20:19)
[2021-01-12] MEDS ORDERED: NICOTINE 10 MG CARTRIDGE (INHALER) IH PRN (20:19)
[2021-01-12] MEDS ORDERED: BISMUTH SUBSALICYLATE 524 MG/30 ML PO PRN (20:19)
[2021-01-12] MEDS ORDERED: hydrOXYzine PAMOATE 25 MG CAPSULE (FP) PO PRN (20:21)
[2021-01-12] MEDS ORDERED: diazePAM 5 MG TABLET PO PRN (20:23)
[2021-01-12 21:00] VITALS: BMI 30.9
[2021-01-12] MEDS ORDERED: diazePAM 5 MG TABLET ONE (23:45)
[2021-01-12] MEDS: MELATONIN 5 MG TABLETS PO SCH (23:47)
[2021-01-12] MEDS: THIAMINE HCL 100 MG TABLET (FP) PO SCH (23:47)
[2021-01-12] MEDS: diazePAM 5 MG TABLET PO SCH (23:48)
[2021-01-13] MEDS ORDERED: diazePAM 5 MG TABLET ONE ×2 (06:08→10:55)
[2021-01-13] MEDS: diazePAM 5 MG TABLET PO SCH ×4 (07:08→23:46)
[2021-01-13] MEDS: PRENATAL VITAMINS W/ FOLIC ACID TABLET (FP) PO SCH (10:57)
[2021-01-13] MEDS: METHOCARBAMOL 500 MG TABLET PO PRN (12:00)
[2021-01-13 12:32] LABS: HEMATOCRIT 39.7 % (35.4-49); HEMOGLOBIN 13.5 GM/dL (11.7-16.9); MCH 31.2 pg (25.7-33.7); MEAN CELL VOLUME 91.7 fl (80-96); MEAN PLT VOLUME 8.4 fl (7.5-11.1); PLATELET COUNT 203 10^3/uL (134-434); RBC 4.33 M/mm3 (4.00-5.60); RDW 14.2 % (11.9-15.9)
[2021-01-13 12:42] LABS: BLOOD UREA NITROGEN 18.9 mg/dL (7-18)
[2021-01-13 12:45] LABS: ALBUMIN 3.8 g/dl (3.4-5.0)
[2021-01-13 12:49] LABS: BILIRUBIN,TOTAL 0.8 mg/dL (0.2-1); TOT PROT 7.6 g/dl (6.4-8.2)
[2021-01-13] MEDS: MAG HYDROX/AL HYDROX/SIMETH 30 ML UNIT-DOSE CUP PO PRN (15:56)
[2021-01-13] MEDS: MELATONIN 5 MG TABLETS PO SCH (23:45)
[2021-01-13] MEDS: THIAMINE HCL 100 MG TABLET (FP) PO SCH (23:46)
[2021-01-14] MEDS: MENTHOL/PHENOL 1 EACH UD MM PRN (05:29)
[2021-01-14] MEDS: ACETAMINOPHEN 325 MG TABLET (FP) PO PRN (05:30)
[2021-01-14] MEDS: diazePAM 5 MG TABLET PO SCH ×3 (05:31→23:17)
[2021-01-14] MEDS ORDERED: cloNIDine HCL 0.1 MG TABLET PO PRN (10:15)
[2021-01-14] MEDS: PRENATAL VITAMINS W/ FOLIC ACID TABLET (FP) PO SCH (10:52)
[2021-01-14] MEDS: HYDROCORTISONE 2.5% TOPICAL CREAM 30 GM TUBE RC PRN (10:53)
[2021-01-14] MEDS: NAPROXEN 250 MG TABLET PO PRN (10:56)
[2021-01-14] MEDS ORDERED: guaiFENesin/CODEINE 5 ML UNIT-DOSE CUPS PO PRN (14:07)
[2021-01-14] MEDS: MAG HYDROX/AL HYDROX/SIMETH 30 ML UNIT-DOSE CUP PO PRN (17:32)
[2021-01-14] MEDS: MELATONIN 5 MG TABLETS PO SCH (23:17)
[2021-01-14] MEDS: THIAMINE HCL 100 MG TABLET (FP) PO SCH (23:17)
[2021-01-15] MEDS: diazePAM 5 MG TABLET PO SCH ×2 (05:52→17:31)
[2021-01-15] MEDS: NAPROXEN 250 MG TABLET PO PRN ×2 (05:53→10:26)
[2021-01-15] MEDS: MENTHOL/PHENOL 1 EACH UD MM PRN ×2 (05:54→14:38)
[2021-01-15] MEDS: LORATADINE 10 MG TABLET PO PRN (10:25)
[2021-01-15] MEDS: HYDROCORTISONE 2.5% TOPICAL CREAM 30 GM TUBE RC PRN (10:26)
[2021-01-15] MEDS: SODIUM CHLORIDE NASAL SPRAY 44 ML BOTTLE NS PRN (10:27)
[2021-01-15] MEDS: PRENATAL VITAMINS W/ FOLIC ACID TABLET (FP) PO SCH (10:28)
[2021-01-15] MEDS: ARTIFICIAL TEARS (POLYVINYL ALCOHOL) OPTH DROPS OU PRN (10:28)
[2021-01-15] MEDS: MAG HYDROX/AL HYDROX/SIMETH 30 ML UNIT-DOSE CUP PO PRN (16:55)
[2021-01-15] MEDS: THIAMINE HCL 100 MG TABLET (FP) PO SCH (23:02)
[2021-01-15] MEDS: MELATONIN 5 MG TABLETS PO SCH (23:02)
[2021-01-16] MEDS ORDERED: diazePAM 5 MG TABLET PO ONE (06:00)
[2021-01-16] MEDS: MENTHOL/PHENOL 1 EACH UD MM PRN (06:18)
[2021-01-16] MEDS: NAPROXEN 250 MG TABLET PO PRN (06:19)
[2021-01-16] MEDS: PRENATAL VITAMINS W/ FOLIC ACID TABLET (FP) PO SCH (10:43)
[2021-01-16] MEDS: LORATADINE 10 MG TABLET PO PRN (10:44)
[2021-01-16] MEDS: SODIUM CHLORIDE NASAL SPRAY 44 ML BOTTLE NS PRN ×2 (10:45→17:40)
[2021-01-16] MEDS: ACETAMINOPHEN 325 MG TABLET (FP) PO PRN (17:39)
[2021-01-16] MEDS: METHOCARBAMOL 500 MG TABLET PO PRN (17:39)
[2021-01-16] MEDS: ARTIFICIAL TEARS (POLYVINYL ALCOHOL) OPTH DROPS OU PRN (17:40)
[2021-01-16] MEDS: THIAMINE HCL 100 MG TABLET (FP) PO SCH (22:39)
[2021-01-16] MEDS: MELATONIN 5 MG TABLETS PO SCH (22:39)
[2021-01-17] MEDS ORDERED: diazePAM 5 MG TABLET PO ONE (06:00)
[2021-01-17] MEDS: NAPROXEN 250 MG TABLET PO PRN (06:27)
[2021-01-17] MEDS: SODIUM CHLORIDE NASAL SPRAY 44 ML BOTTLE NS PRN (10:09)
[2021-01-17] MEDS: ARTIFICIAL TEARS (POLYVINYL ALCOHOL) OPTH DROPS OU PRN (10:09)
[2021-01-17] MEDS: PRENATAL VITAMINS W/ FOLIC ACID TABLET (FP) PO SCH (10:09)
[2021-01-17 11:45] VITALS: BP 136/74; PULSE 111; TEMP 97
== END 2021-01-17 12:22 | disposition other institution (70) | DRG 775 ==
LOC: YASAS 16:07 → Y6N 01-13 11:01
PROVIDERS: ADMIT Allergy & Immunology; ATTEND Allergy & Immunology
PROC: HZ2ZZZZ Detoxification Services for Substance Abuse Treatment (ICD-10-PCS; principal; 2021-01-13)
DX: F10.230 Alcohol dependence with withdrawal, uncomplicated (principal); F17.210 Nicotine dependence, cigarettes, uncomplicated; I10 Essential (primary) hypertension; K21.9 Gastro-esophageal reflux disease without esophagitis; H05.20 Unspecified exophthalmos; H04.129 Dry eye syndrome of unspecified lacrimal gland; J32.2 Chronic ethmoidal sinusitis; E66.9 Obesity, unspecified; Z68.30 Body mass index [BMI] 30.0-30.9, adult; Z86.19 Personal history of other infectious and parasitic diseases; Z87.19 Personal history of other diseases of the digestive system; Z88.0 Allergy status to penicillin; Z88.7 Allergy status to serum and vaccine
CPT/HCPCS: 36415; 80053; 85027; 86593; 86780; C9803; J0735; U0003; U0005

== ENCOUNTER 2021-01-17 12:35 | Inpatient (IN) | payer OTHER ==
[2021-01-17] MEDS ORDERED: guaiFENesin 200 MG/10 ML 10 ML UNIT-DOSE CUPS PO PRN (13:08)
[2021-01-17] MEDS ORDERED: NICOTINE 10 MG CARTRIDGE (INHALER) IH PRN (13:08)
[2021-01-17] MEDS ORDERED: LOPERAMIDE HCL 2 MG CAPSULE PO PRN (13:08)
[2021-01-17] MEDS ORDERED: P-EPHED 60MG/TRIPROLIDI 2.5MG TABLET PO PRN (13:08)
[2021-01-17] MEDS ORDERED: MAGNESIUM CITRATE 300 ML BOTTLE PO PRN (13:08)
[2021-01-17] MEDS ORDERED: hydrOXYzine PAMOATE 25 MG CAPSULE (FP) PO PRN (13:08)
[2021-01-17] MEDS ORDERED: IBUPROFEN 400 MG TABLET (FP) PO PRN (13:08)
[2021-01-17] MEDS: ARTIFICIAL TEARS (POLYVINYL ALCOHOL) OPTH DROPS OU SCH ×2 (16:35→22:15)
[2021-01-17] MEDS: MELATONIN 5 MG TABLETS PO SCH (22:15)
[2021-01-17] MEDS: THIAMINE HCL 100 MG TABLET (FP) PO SCH (22:15)
[2021-01-18] MEDS: MAGNESIUM HYDROX 2400MG/30ML ORAL SUSPENSION 30 ML CUP PO PRN (06:52)
[2021-01-18] MEDS: PANTOPRAZOLE 40 MG TABLET PO SCH (06:52)
[2021-01-18] MEDS: MENTHOL/PHENOL 1 EACH UD MM PRN (06:53)
[2021-01-18] MEDS: ACETAMINOPHEN 325 MG TABLET (FP) PO PRN (06:53)
[2021-01-18] MEDS: ARTIFICIAL TEARS (POLYVINYL ALCOHOL) OPTH DROPS OU SCH ×3 (06:53→21:28)
[2021-01-18] MEDS: PRENATAL VITAMINS W/ FOLIC ACID TABLET (FP) PO SCH (10:22)
[2021-01-18] MEDS: amLODIPine BESYLATE 10 MG TABLET (FP) PO SCH (10:22)
[2021-01-18] MEDS: LORATADINE 10 MG TABLET PO SCH (10:22)
[2021-01-18] MEDS: NICOTINE 7 MG/24 HOURS TOPICAL PATCH TD SCH (10:22)
[2021-01-18] MEDS: SODIUM CHLORIDE NASAL SPRAY 44 ML BOTTLE NS PRN (10:23)
[2021-01-18] MEDS: NAPROXEN 500 MG TABLET PO PRN ×2 (14:18→21:26)
[2021-01-18] MEDS: LIDOCAINE 5% TOPICAL PATCH TP SCH (14:19)
[2021-01-18] MEDS: HYDROCORTISONE 2.5% TOPICAL CREAM 30 GM TUBE RC SCH (21:27)
[2021-01-18] MEDS: LIDOCAINE PATCH REMOVAL MC SCH (21:28)
[2021-01-18] MEDS: THIAMINE HCL 100 MG TABLET (FP) PO SCH (21:28)
[2021-01-18] MEDS: MELATONIN 5 MG TABLETS PO SCH (21:28)
[2021-01-18] MEDS: MAG HYDROX/AL HYDROX/SIMETH 30 ML UNIT-DOSE CUP PO PRN (21:30)
[2021-01-19] MEDS: PANTOPRAZOLE 40 MG TABLET PO SCH (06:09)
[2021-01-19] MEDS: ARTIFICIAL TEARS (POLYVINYL ALCOHOL) OPTH DROPS OU SCH ×3 (06:09→21:58)
[2021-01-19] MEDS: MAGNESIUM HYDROX 2400MG/30ML ORAL SUSPENSION 30 ML CUP PO PRN (06:10)
[2021-01-19] MEDS: ACETAMINOPHEN 325 MG TABLET (FP) PO PRN ×2 (06:11→13:56)
[2021-01-19] MEDS: LIDOCAINE 5% TOPICAL PATCH TP SCH (10:39)
[2021-01-19] MEDS: LORATADINE 10 MG TABLET PO SCH (10:39)
[2021-01-19] MEDS: amLODIPine BESYLATE 10 MG TABLET (FP) PO SCH (10:39)
[2021-01-19] MEDS: PRENATAL VITAMINS W/ FOLIC ACID TABLET (FP) PO SCH (10:39)
[2021-01-19] MEDS: NICOTINE 7 MG/24 HOURS TOPICAL PATCH TD SCH (10:40)
[2021-01-19] MEDS: SODIUM CHLORIDE NASAL SPRAY 44 ML BOTTLE NS PRN (10:41)
[2021-01-19] MEDS: NAPROXEN 500 MG TABLET PO PRN (10:41)
[2021-01-19] MEDS: MAG HYDROX/AL HYDROX/SIMETH 30 ML UNIT-DOSE CUP PO PRN (19:01)
[2021-01-19] MEDS: HYDROCORTISONE 2.5% TOPICAL CREAM 30 GM TUBE RC SCH (21:58)
[2021-01-19] MEDS: LIDOCAINE PATCH REMOVAL MC SCH (21:59)
[2021-01-19] MEDS: THIAMINE HCL 100 MG TABLET (FP) PO SCH (21:59)
[2021-01-19] MEDS: MELATONIN 5 MG TABLETS PO SCH (21:59)
[2021-01-20] MEDS: MENTHOL/PHENOL 1 EACH UD MM PRN (06:26)
[2021-01-20] MEDS: PANTOPRAZOLE 40 MG TABLET PO SCH (06:26)
[2021-01-20] MEDS: MAGNESIUM HYDROX 2400MG/30ML ORAL SUSPENSION 30 ML CUP PO PRN (06:26)
[2021-01-20] MEDS: ARTIFICIAL TEARS (POLYVINYL ALCOHOL) OPTH DROPS OU SCH ×3 (06:26→21:38)
[2021-01-20] MEDS: NAPROXEN 500 MG TABLET PO PRN ×2 (06:26→21:35)
[2021-01-20] MEDS: PRENATAL VITAMINS W/ FOLIC ACID TABLET (FP) PO SCH (10:30)
[2021-01-20] MEDS: LIDOCAINE 5% TOPICAL PATCH TP SCH (10:30)
[2021-01-20] MEDS: amLODIPine BESYLATE 10 MG TABLET (FP) PO SCH (10:30)
[2021-01-20] MEDS: NICOTINE 7 MG/24 HOURS TOPICAL PATCH TD SCH (10:30)
[2021-01-20] MEDS: LORATADINE 10 MG TABLET PO SCH (10:30)
[2021-01-20] MEDS: ACETAMINOPHEN 325 MG TABLET (FP) PO PRN (10:32)
[2021-01-20] MEDS: SODIUM CHLORIDE NASAL SPRAY 44 ML BOTTLE NS PRN (10:33)
[2021-01-20] MEDS ORDERED: TETRAHYDROZOLINE HCL EYE DROPS OU PRN (12:44)
[2021-01-20] MEDS: METHOCARBAMOL 500 MG TABLET PO SCH ×3 (14:04→21:35)
[2021-01-20] MEDS: CARBAMIDE PEROXIDE 6.5% OTIC 15 ML BOTTLE AU SCH ×2 (15:58→21:38)
[2021-01-20] MEDS: MELATONIN 5 MG TABLETS PO SCH (21:36)
[2021-01-20] MEDS: MAG HYDROX/AL HYDROX/SIMETH 30 ML UNIT-DOSE CUP PO PRN (21:37)
[2021-01-20] MEDS: LACTULOSE 20 GM/30 ML UDC (FOR ORAL USE ONLY) PO PRN (21:37)
[2021-01-20] MEDS: THIAMINE HCL 100 MG TABLET (FP) PO SCH (21:38)
[2021-01-20] MEDS: LIDOCAINE PATCH REMOVAL MC SCH (21:38)
[2021-01-20] MEDS: HYDROCORTISONE 2.5% TOPICAL CREAM 30 GM TUBE RC SCH (23:21)
[2021-01-21] MEDS: MENTHOL/PHENOL 1 EACH UD MM PRN ×2 (06:52→09:52)
[2021-01-21] MEDS: NAPROXEN 500 MG TABLET PO PRN (06:52)
[2021-01-21] MEDS: ARTIFICIAL TEARS (POLYVINYL ALCOHOL) OPTH DROPS OU SCH ×3 (06:52→23:11)
[2021-01-21] MEDS: PANTOPRAZOLE 40 MG TABLET PO SCH (06:52)
[2021-01-21] MEDS: MAGNESIUM HYDROX 2400MG/30ML ORAL SUSPENSION 30 ML CUP PO PRN (06:52)
[2021-01-21] MEDS: amLODIPine BESYLATE 10 MG TABLET (FP) PO SCH (09:51)
[2021-01-21] MEDS: NICOTINE 7 MG/24 HOURS TOPICAL PATCH TD SCH (09:51)
[2021-01-21] MEDS: LORATADINE 10 MG TABLET PO SCH (09:51)
[2021-01-21] MEDS: PRENATAL VITAMINS W/ FOLIC ACID TABLET (FP) PO SCH (09:51)
[2021-01-21] MEDS: METHOCARBAMOL 500 MG TABLET PO SCH ×4 (09:51→23:11)
[2021-01-21] MEDS: CARBAMIDE PEROXIDE 6.5% OTIC 15 ML BOTTLE AU SCH ×2 (09:51→23:11)
[2021-01-21] MEDS: SODIUM CHLORIDE NASAL SPRAY 44 ML BOTTLE NS PRN (09:52)
[2021-01-21] MEDS: HYDROCORTISONE 1% TOPICAL CREAM 30 GM TUBE TP PRN (09:52)
[2021-01-21] MEDS: LIDOCAINE 5% TOPICAL PATCH TP SCH (09:52)
[2021-01-21] MEDS: ACETAMINOPHEN 325 MG TABLET (FP) PO PRN ×2 (09:53→14:37)
[2021-01-21] MEDS ORDERED: PT OWN MED DRAWER 7, Y5N ONE (11:56)
[2021-01-21] MEDS: HYDROCORTISONE 2.5% TOPICAL CREAM 30 GM TUBE RC SCH (23:10)
[2021-01-21] MEDS: LIDOCAINE PATCH REMOVAL MC SCH (23:11)
[2021-01-21] MEDS: THIAMINE HCL 100 MG TABLET (FP) PO SCH (23:11)
[2021-01-21] MEDS: MELATONIN 5 MG TABLETS PO SCH (23:11)
[2021-01-22] MEDS: ARTIFICIAL TEARS (POLYVINYL ALCOHOL) OPTH DROPS OU SCH ×3 (06:18→22:37)
[2021-01-22] MEDS: PANTOPRAZOLE 40 MG TABLET PO SCH (06:18)
[2021-01-22] MEDS: NAPROXEN 500 MG TABLET PO PRN (06:18)
[2021-01-22] MEDS: MAGNESIUM HYDROX 2400MG/30ML ORAL SUSPENSION 30 ML CUP PO PRN (06:18)
[2021-01-22] MEDS: MENTHOL/PHENOL 1 EACH UD MM PRN (06:18)
[2021-01-22] MEDS: METHOCARBAMOL 500 MG TABLET PO SCH ×4 (10:16→22:37)
[2021-01-22] MEDS: PRENATAL VITAMINS W/ FOLIC ACID TABLET (FP) PO SCH (10:16)
[2021-01-22] MEDS: amLODIPine BESYLATE 10 MG TABLET (FP) PO SCH (10:16)
[2021-01-22] MEDS: LORATADINE 10 MG TABLET PO SCH (10:16)
[2021-01-22] MEDS: LIDOCAINE 5% TOPICAL PATCH TP SCH (10:17)
[2021-01-22] MEDS: CARBAMIDE PEROXIDE 6.5% OTIC 15 ML BOTTLE AU SCH ×2 (10:17→22:37)
[2021-01-22] MEDS: NICOTINE 7 MG/24 HOURS TOPICAL PATCH TD SCH (10:17)
[2021-01-22] MEDS: HYDROCORTISONE 1% TOPICAL CREAM 30 GM TUBE TP PRN (10:18)
[2021-01-22] MEDS: SODIUM CHLORIDE NASAL SPRAY 44 ML BOTTLE NS PRN (10:19)
[2021-01-22] MEDS: MELATONIN 5 MG TABLETS PO SCH (22:37)
[2021-01-22] MEDS: LIDOCAINE PATCH REMOVAL MC SCH (22:37)
[2021-01-22] MEDS: HYDROCORTISONE 2.5% TOPICAL CREAM 30 GM TUBE RC SCH (22:37)
[2021-01-22] MEDS: THIAMINE HCL 100 MG TABLET (FP) PO SCH (22:37)
[2021-01-23] MEDS: ARTIFICIAL TEARS (POLYVINYL ALCOHOL) OPTH DROPS OU SCH ×3 (06:12→22:20)
[2021-01-23] MEDS: PANTOPRAZOLE 40 MG TABLET PO SCH (06:12)
[2021-01-23] MEDS: MENTHOL/PHENOL 1 EACH UD MM PRN (06:15)
[2021-01-23] MEDS: NAPROXEN 500 MG TABLET PO PRN (06:15)
[2021-01-23] MEDS: MAGNESIUM HYDROX 2400MG/30ML ORAL SUSPENSION 30 ML CUP PO PRN (06:15)
[2021-01-23] MEDS: amLODIPine BESYLATE 10 MG TABLET (FP) PO SCH (09:43)
[2021-01-23] MEDS: CARBAMIDE PEROXIDE 6.5% OTIC 15 ML BOTTLE AU SCH ×2 (09:43→22:20)
[2021-01-23] MEDS: PRENATAL VITAMINS W/ FOLIC ACID TABLET (FP) PO SCH (09:43)
[2021-01-23] MEDS: METHOCARBAMOL 500 MG TABLET PO SCH ×4 (09:43→22:21)
[2021-01-23] MEDS: LORATADINE 10 MG TABLET PO SCH (09:43)
[2021-01-23] MEDS: LIDOCAINE 5% TOPICAL PATCH TP SCH (09:44)
[2021-01-23] MEDS: SODIUM CHLORIDE NASAL SPRAY 44 ML BOTTLE NS PRN (09:44)
[2021-01-23] MEDS: NICOTINE 7 MG/24 HOURS TOPICAL PATCH TD SCH (09:44)
[2021-01-23] MEDS: MAG HYDROX/AL HYDROX/SIMETH 30 ML UNIT-DOSE CUP PO PRN (17:58)
[2021-01-23] MEDS: HYDROCORTISONE 2.5% TOPICAL CREAM 30 GM TUBE RC SCH (22:20)
[2021-01-23] MEDS: LIDOCAINE PATCH REMOVAL MC SCH (22:21)
[2021-01-23] MEDS: THIAMINE HCL 100 MG TABLET (FP) PO SCH (22:21)
[2021-01-23] MEDS: MELATONIN 5 MG TABLETS PO SCH (22:21)
[2021-01-24] MEDS: MAGNESIUM HYDROX 2400MG/30ML ORAL SUSPENSION 30 ML CUP PO PRN (06:44)
[2021-01-24] MEDS: ARTIFICIAL TEARS (POLYVINYL ALCOHOL) OPTH DROPS OU SCH ×3 (06:44→23:08)
[2021-01-24] MEDS: PANTOPRAZOLE 40 MG TABLET PO SCH (06:44)
[2021-01-24] MEDS: NAPROXEN 500 MG TABLET PO PRN ×2 (06:44→10:13)
[2021-01-24] MEDS: MENTHOL/PHENOL 1 EACH UD MM PRN ×2 (06:45→10:14)
[2021-01-24] MEDS: PRENATAL VITAMINS W/ FOLIC ACID TABLET (FP) PO SCH (10:13)
[2021-01-24] MEDS: METHOCARBAMOL 500 MG TABLET PO SCH ×4 (10:13→23:09)
[2021-01-24] MEDS: LORATADINE 10 MG TABLET PO SCH (10:13)
[2021-01-24] MEDS: amLODIPine BESYLATE 10 MG TABLET (FP) PO SCH (10:13)
[2021-01-24] MEDS: CARBAMIDE PEROXIDE 6.5% OTIC 15 ML BOTTLE AU SCH ×2 (10:14→23:09)
[2021-01-24] MEDS: LIDOCAINE 5% TOPICAL PATCH TP SCH (10:14)
[2021-01-24] MEDS: NICOTINE 7 MG/24 HOURS TOPICAL PATCH TD SCH (10:14)
[2021-01-24] MEDS: SODIUM CHLORIDE NASAL SPRAY 44 ML BOTTLE NS PRN (10:15)
[2021-01-24] MEDS: ACETAMINOPHEN 325 MG TABLET (FP) PO PRN (18:30)
[2021-01-24] MEDS: HYDROCORTISONE 2.5% TOPICAL CREAM 30 GM TUBE RC SCH (23:08)
[2021-01-24] MEDS: MELATONIN 5 MG TABLETS PO SCH (23:09)
[2021-01-24] MEDS: THIAMINE HCL 100 MG TABLET (FP) PO SCH (23:09)
[2021-01-24] MEDS: LIDOCAINE PATCH REMOVAL MC SCH (23:09)
[2021-01-25] MEDS: ARTIFICIAL TEARS (POLYVINYL ALCOHOL) OPTH DROPS OU SCH ×3 (06:40→22:53)
[2021-01-25] MEDS: MAGNESIUM HYDROX 2400MG/30ML ORAL SUSPENSION 30 ML CUP PO PRN (06:40)
[2021-01-25] MEDS: MENTHOL/PHENOL 1 EACH UD MM PRN ×2 (06:40→10:05)
[2021-01-25] MEDS: NAPROXEN 500 MG TABLET PO PRN ×2 (06:40→10:04)
[2021-01-25] MEDS: PANTOPRAZOLE 40 MG TABLET PO SCH (06:40)
[2021-01-25] MEDS: SODIUM CHLORIDE NASAL SPRAY 44 ML BOTTLE NS PRN (10:04)
[2021-01-25] MEDS: METHOCARBAMOL 500 MG TABLET PO SCH ×4 (10:04→22:53)
[2021-01-25] MEDS: LORATADINE 10 MG TABLET PO SCH (10:04)
[2021-01-25] MEDS: PRENATAL VITAMINS W/ FOLIC ACID TABLET (FP) PO SCH (10:04)
[2021-01-25] MEDS: amLODIPine BESYLATE 10 MG TABLET (FP) PO SCH (10:04)
[2021-01-25] MEDS: ACETAMINOPHEN 325 MG TABLET (FP) PO PRN (10:06)
[2021-01-25] MEDS: NICOTINE 7 MG/24 HOURS TOPICAL PATCH TD SCH (10:07)
[2021-01-25] MEDS: LIDOCAINE 5% TOPICAL PATCH TP SCH (10:07)
[2021-01-25] MEDS: CARBAMIDE PEROXIDE 6.5% OTIC 15 ML BOTTLE AU SCH ×2 (10:08→22:53)
[2021-01-25] MEDS ORDERED: PT OWN MED DRAWER 7, Y5N ONE (10:09)
[2021-01-25] MEDS: METHYL SALICYLATE/MENTHOL OINT 30 GM TUBE TP SCH ×2 (14:41→22:53)
[2021-01-25] MEDS: MAG HYDROX/AL HYDROX/SIMETH 30 ML UNIT-DOSE CUP PO PRN (18:12)
[2021-01-25] MEDS: LIDOCAINE PATCH REMOVAL MC SCH (22:53)
[2021-01-25] MEDS: THIAMINE HCL 100 MG TABLET (FP) PO SCH (22:53)
[2021-01-25] MEDS: HYDROCORTISONE 2.5% TOPICAL CREAM 30 GM TUBE RC SCH (22:53)
[2021-01-25] MEDS: MELATONIN 5 MG TABLETS PO SCH (22:53)
[2021-01-26] MEDS: NAPROXEN 500 MG TABLET PO PRN (06:31)
[2021-01-26] MEDS: MAGNESIUM HYDROX 2400MG/30ML ORAL SUSPENSION 30 ML CUP PO PRN (06:31)
[2021-01-26] MEDS: MENTHOL/PHENOL 1 EACH UD MM PRN (06:31)
[2021-01-26] MEDS: PANTOPRAZOLE 40 MG TABLET PO SCH (06:31)
[2021-01-26] MEDS: ARTIFICIAL TEARS (POLYVINYL ALCOHOL) OPTH DROPS OU SCH ×3 (06:31→23:13)
[2021-01-26] MEDS: PRENATAL VITAMINS W/ FOLIC ACID TABLET (FP) PO SCH (10:17)
[2021-01-26] MEDS: amLODIPine BESYLATE 10 MG TABLET (FP) PO SCH (10:17)
[2021-01-26] MEDS: LORATADINE 10 MG TABLET PO SCH (10:17)
[2021-01-26] MEDS: LIDOCAINE 5% TOPICAL PATCH TP SCH (10:18)
[2021-01-26] MEDS: NICOTINE 7 MG/24 HOURS TOPICAL PATCH TD SCH (10:18)
[2021-01-26] MEDS: CARBAMIDE PEROXIDE 6.5% OTIC 15 ML BOTTLE AU SCH ×2 (10:18→23:14)
[2021-01-26] MEDS: METHOCARBAMOL 500 MG TABLET PO SCH ×4 (10:18→23:14)
[2021-01-26] MEDS: HYDROCORTISONE 1% TOPICAL CREAM 30 GM TUBE TP PRN (10:19)
[2021-01-26] MEDS: METHYL SALICYLATE/MENTHOL OINT 30 GM TUBE TP SCH ×2 (10:20→23:13)
[2021-01-26] MEDS: SODIUM CHLORIDE NASAL SPRAY 44 ML BOTTLE NS PRN (10:21)
[2021-01-26] MEDS: MAG HYDROX/AL HYDROX/SIMETH 30 ML UNIT-DOSE CUP PO PRN (15:40)
[2021-01-26] MEDS: LIDOCAINE PATCH REMOVAL MC SCH (22:50)
[2021-01-26] MEDS: HYDROCORTISONE 2.5% TOPICAL CREAM 30 GM TUBE RC SCH (23:13)
[2021-01-26] MEDS: MELATONIN 5 MG TABLETS PO SCH (23:14)
[2021-01-26] MEDS: THIAMINE HCL 100 MG TABLET (FP) PO SCH (23:14)
[2021-01-27] MEDS: PANTOPRAZOLE 40 MG TABLET PO SCH (06:53)
[2021-01-27] MEDS: MENTHOL/PHENOL 1 EACH UD MM PRN (06:53)
[2021-01-27] MEDS: MAGNESIUM HYDROX 2400MG/30ML ORAL SUSPENSION 30 ML CUP PO PRN (06:53)
[2021-01-27] MEDS: ARTIFICIAL TEARS (POLYVINYL ALCOHOL) OPTH DROPS OU SCH ×3 (06:53→23:16)
[2021-01-27] MEDS: NAPROXEN 500 MG TABLET PO PRN ×2 (06:53→18:10)
[2021-01-27] MEDS: METHOCARBAMOL 500 MG TABLET PO SCH ×4 (09:50→23:17)
[2021-01-27] MEDS: PRENATAL VITAMINS W/ FOLIC ACID TABLET (FP) PO SCH (09:50)
[2021-01-27] MEDS: LORATADINE 10 MG TABLET PO SCH (09:51)
[2021-01-27] MEDS: CARBAMIDE PEROXIDE 6.5% OTIC 15 ML BOTTLE AU SCH ×2 (09:51→23:16)
[2021-01-27] MEDS: amLODIPine BESYLATE 10 MG TABLET (FP) PO SCH (09:51)
[2021-01-27] MEDS: HYDROCORTISONE 1% TOPICAL CREAM 30 GM TUBE TP PRN (09:51)
[2021-01-27] MEDS: ACETAMINOPHEN 325 MG TABLET (FP) PO PRN (09:52)
[2021-01-27] MEDS: LIDOCAINE 5% TOPICAL PATCH TP SCH (09:54)
[2021-01-27] MEDS: SODIUM CHLORIDE NASAL SPRAY 44 ML BOTTLE NS PRN (09:54)
[2021-01-27] MEDS: METHYL SALICYLATE/MENTHOL OINT 30 GM TUBE TP SCH ×2 (10:15→23:16)
[2021-01-27] MEDS: NICOTINE 7 MG/24 HOURS TOPICAL PATCH TD SCH (10:15)
[2021-01-27] MEDS: LACTULOSE 20 GM/30 ML UDC (FOR ORAL USE ONLY) PO PRN (18:10)
[2021-01-27] MEDS: HYDROCORTISONE 2.5% TOPICAL CREAM 30 GM TUBE RC SCH (23:16)
[2021-01-27] MEDS: LIDOCAINE PATCH REMOVAL MC SCH (23:17)
[2021-01-27] MEDS: THIAMINE HCL 100 MG TABLET (FP) PO SCH (23:17)
[2021-01-27] MEDS: MELATONIN 5 MG TABLETS PO SCH (23:17)
[2021-01-28] MEDS ORDERED: PT OWN MED DRAWER 7, Y5N ONE ×2 (03:42→09:42)
[2021-01-28] MEDS: ARTIFICIAL TEARS (POLYVINYL ALCOHOL) OPTH DROPS OU SCH ×3 (06:37→21:56)
[2021-01-28] MEDS: MAGNESIUM HYDROX 2400MG/30ML ORAL SUSPENSION 30 ML CUP PO PRN (06:37)
[2021-01-28] MEDS: MENTHOL/PHENOL 1 EACH UD MM PRN (06:37)
[2021-01-28] MEDS: PANTOPRAZOLE 40 MG TABLET PO SCH (06:37)
[2021-01-28] MEDS: NAPROXEN 500 MG TABLET PO PRN (06:37)
[2021-01-28] MEDS: amLODIPine BESYLATE 10 MG TABLET (FP) PO SCH (09:40)
[2021-01-28] MEDS: LORATADINE 10 MG TABLET PO SCH (09:40)
[2021-01-28] MEDS: METHOCARBAMOL 500 MG TABLET PO SCH ×4 (09:40→22:09)
[2021-01-28] MEDS: PRENATAL VITAMINS W/ FOLIC ACID TABLET (FP) PO SCH (09:40)
[2021-01-28] MEDS: LIDOCAINE 5% TOPICAL PATCH TP SCH (09:41)
[2021-01-28] MEDS: NICOTINE 7 MG/24 HOURS TOPICAL PATCH TD SCH (09:41)
[2021-01-28] MEDS: METHYL SALICYLATE/MENTHOL OINT 30 GM TUBE TP SCH ×2 (09:41→21:56)
[2021-01-28] MEDS: CARBAMIDE PEROXIDE 6.5% OTIC 15 ML BOTTLE AU SCH ×2 (09:41→21:56)
[2021-01-28] MEDS: ACETAMINOPHEN 325 MG TABLET (FP) PO PRN (09:42)
[2021-01-28] MEDS: SODIUM CHLORIDE NASAL SPRAY 44 ML BOTTLE NS PRN (09:42)
[2021-01-28] MEDS: MAG HYDROX/AL HYDROX/SIMETH 30 ML UNIT-DOSE CUP PO PRN (17:48)
[2021-01-28] MEDS: HYDROCORTISONE 2.5% TOPICAL CREAM 30 GM TUBE RC SCH (21:56)
[2021-01-28] MEDS: LIDOCAINE PATCH REMOVAL MC SCH (21:56)
[2021-01-28] MEDS: MELATONIN 5 MG TABLETS PO SCH (22:09)
[2021-01-28] MEDS: THIAMINE HCL 100 MG TABLET (FP) PO SCH (22:09)
[2021-01-29] MEDS: MENTHOL/PHENOL 1 EACH UD MM PRN (07:14)
[2021-01-29] MEDS: NAPROXEN 500 MG TABLET PO PRN (07:14)
[2021-01-29] MEDS: PANTOPRAZOLE 40 MG TABLET PO SCH (07:14)
[2021-01-29] MEDS: MAGNESIUM HYDROX 2400MG/30ML ORAL SUSPENSION 30 ML CUP PO PRN (07:14)
[2021-01-29] MEDS: ARTIFICIAL TEARS (POLYVINYL ALCOHOL) OPTH DROPS OU SCH ×3 (07:14→23:08)
[2021-01-29] MEDS: NICOTINE 7 MG/24 HOURS TOPICAL PATCH TD SCH (10:01)
[2021-01-29] MEDS: LIDOCAINE 5% TOPICAL PATCH TP SCH (10:01)
[2021-01-29] MEDS: LORATADINE 10 MG TABLET PO SCH (10:01)
[2021-01-29] MEDS: PRENATAL VITAMINS W/ FOLIC ACID TABLET (FP) PO SCH (10:01)
[2021-01-29] MEDS: METHOCARBAMOL 500 MG TABLET PO SCH ×4 (10:01→23:09)
[2021-01-29] MEDS: CARBAMIDE PEROXIDE 6.5% OTIC 15 ML BOTTLE AU SCH ×2 (10:01→23:08)
[2021-01-29] MEDS: amLODIPine BESYLATE 10 MG TABLET (FP) PO SCH (10:01)
[2021-01-29] MEDS: METHYL SALICYLATE/MENTHOL OINT 30 GM TUBE TP SCH ×2 (10:01→23:08)
[2021-01-29] MEDS: ACETAMINOPHEN 325 MG TABLET (FP) PO PRN (10:02)
[2021-01-29] MEDS ORDERED: PT OWN MED DRAWER 7, Y5N ONE (10:02)
[2021-01-29] MEDS: LIDOCAINE PATCH REMOVAL MC SCH (23:08)
[2021-01-29] MEDS: HYDROCORTISONE 2.5% TOPICAL CREAM 30 GM TUBE RC SCH (23:08)
[2021-01-29] MEDS: MELATONIN 5 MG TABLETS PO SCH (23:09)
[2021-01-29] MEDS: THIAMINE HCL 100 MG TABLET (FP) PO SCH (23:09)
[2021-01-30] MEDS: PANTOPRAZOLE 40 MG TABLET PO SCH (06:46)
[2021-01-30] MEDS: NAPROXEN 500 MG TABLET PO PRN (06:46)
[2021-01-30] MEDS: MAGNESIUM HYDROX 2400MG/30ML ORAL SUSPENSION 30 ML CUP PO PRN (06:46)
[2021-01-30] MEDS: ARTIFICIAL TEARS (POLYVINYL ALCOHOL) OPTH DROPS OU SCH ×3 (06:46→22:59)
[2021-01-30] MEDS: MENTHOL/PHENOL 1 EACH UD MM PRN (06:46)
[2021-01-30] MEDS: LORATADINE 10 MG TABLET PO SCH (10:24)
[2021-01-30] MEDS: PRENATAL VITAMINS W/ FOLIC ACID TABLET (FP) PO SCH (10:24)
[2021-01-30] MEDS: METHOCARBAMOL 500 MG TABLET PO SCH ×4 (10:24→22:59)
[2021-01-30] MEDS: LIDOCAINE 5% TOPICAL PATCH TP SCH (10:24)
[2021-01-30] MEDS: amLODIPine BESYLATE 10 MG TABLET (FP) PO SCH (10:24)
[2021-01-30] MEDS: ACETAMINOPHEN 325 MG TABLET (FP) PO PRN ×2 (10:25→16:01)
[2021-01-30] MEDS ORDERED: PT OWN MED DRAWER 7, Y5N ONE ×2 (10:25→10:29)
[2021-01-30] MEDS: METHYL SALICYLATE/MENTHOL OINT 30 GM TUBE TP SCH ×2 (10:26→22:59)
[2021-01-30] MEDS: SODIUM CHLORIDE NASAL SPRAY 44 ML BOTTLE NS PRN (10:27)
[2021-01-30] MEDS: NICOTINE 7 MG/24 HOURS TOPICAL PATCH TD SCH (10:27)
[2021-01-30] MEDS: HYDROCORTISONE 1% TOPICAL CREAM 30 GM TUBE TP PRN (10:28)
[2021-01-30] MEDS: CARBAMIDE PEROXIDE 6.5% OTIC 15 ML BOTTLE AU SCH ×2 (13:18→22:59)
[2021-01-30] MEDS: MAG HYDROX/AL HYDROX/SIMETH 30 ML UNIT-DOSE CUP PO PRN (13:19)
[2021-01-30] MEDS: HYDROCORTISONE 2.5% TOPICAL CREAM 30 GM TUBE RC SCH (22:59)
[2021-01-30] MEDS: MELATONIN 5 MG TABLETS PO SCH (22:59)
[2021-01-30] MEDS: THIAMINE HCL 100 MG TABLET (FP) PO SCH (22:59)
[2021-01-30] MEDS: LIDOCAINE PATCH REMOVAL MC SCH (23:33)
[2021-01-31] MEDS: PANTOPRAZOLE 40 MG TABLET PO SCH (06:25)
[2021-01-31] MEDS: MAGNESIUM HYDROX 2400MG/30ML ORAL SUSPENSION 30 ML CUP PO PRN (06:25)
[2021-01-31] MEDS: NAPROXEN 500 MG TABLET PO PRN (06:25)
[2021-01-31] MEDS: MENTHOL/PHENOL 1 EACH UD MM PRN (06:26)
[2021-01-31] MEDS: ARTIFICIAL TEARS (POLYVINYL ALCOHOL) OPTH DROPS OU SCH ×3 (06:26→23:13)
[2021-01-31] MEDS: NICOTINE 7 MG/24 HOURS TOPICAL PATCH TD SCH (09:40)
[2021-01-31] MEDS: SODIUM CHLORIDE NASAL SPRAY 44 ML BOTTLE NS PRN (09:40)
[2021-01-31] MEDS: METHOCARBAMOL 500 MG TABLET PO SCH ×4 (09:40→23:14)
[2021-01-31] MEDS: PRENATAL VITAMINS W/ FOLIC ACID TABLET (FP) PO SCH (09:40)
[2021-01-31] MEDS: LORATADINE 10 MG TABLET PO SCH (09:40)
[2021-01-31] MEDS: amLODIPine BESYLATE 10 MG TABLET (FP) PO SCH (09:40)
[2021-01-31] MEDS: LIDOCAINE 5% TOPICAL PATCH TP SCH (09:41)
[2021-01-31] MEDS: METHYL SALICYLATE/MENTHOL OINT 30 GM TUBE TP SCH ×2 (09:41→23:13)
[2021-01-31] MEDS: CARBAMIDE PEROXIDE 6.5% OTIC 15 ML BOTTLE AU SCH ×2 (09:41→23:13)
[2021-01-31] MEDS: ACETAMINOPHEN 325 MG TABLET (FP) PO PRN (15:07)
[2021-01-31] MEDS: MELATONIN 5 MG TABLETS PO SCH (23:13)
[2021-01-31] MEDS: HYDROCORTISONE 2.5% TOPICAL CREAM 30 GM TUBE RC SCH (23:13)
[2021-01-31] MEDS: THIAMINE HCL 100 MG TABLET (FP) PO SCH (23:14)
[2021-01-31] MEDS: LIDOCAINE PATCH REMOVAL MC SCH (23:14)
[2021-02-01] MEDS: MENTHOL/PHENOL 1 EACH UD MM PRN (06:14)
[2021-02-01] MEDS: PANTOPRAZOLE 40 MG TABLET PO SCH (06:14)
[2021-02-01] MEDS: NAPROXEN 500 MG TABLET PO PRN ×2 (06:14→10:03)
[2021-02-01] MEDS: ARTIFICIAL TEARS (POLYVINYL ALCOHOL) OPTH DROPS OU SCH ×3 (06:14→22:05)
[2021-02-01 09:15] VITALS: PULSE 95
[2021-02-01] MEDS: SODIUM CHLORIDE NASAL SPRAY 44 ML BOTTLE NS PRN (10:02)
[2021-02-01] MEDS: PRENATAL VITAMINS W/ FOLIC ACID TABLET (FP) PO SCH (10:02)
[2021-02-01] MEDS: CARBAMIDE PEROXIDE 6.5% OTIC 15 ML BOTTLE AU SCH ×2 (10:03→22:05)
[2021-02-01] MEDS: METHYL SALICYLATE/MENTHOL OINT 30 GM TUBE TP SCH ×2 (10:03→22:05)
[2021-02-01] MEDS: NICOTINE 7 MG/24 HOURS TOPICAL PATCH TD SCH (10:03)
[2021-02-01] MEDS: METHOCARBAMOL 500 MG TABLET PO SCH ×4 (10:03→22:06)
[2021-02-01] MEDS: amLODIPine BESYLATE 10 MG TABLET (FP) PO SCH (10:03)
[2021-02-01] MEDS: LORATADINE 10 MG TABLET PO SCH (10:03)
[2021-02-01] MEDS: HYDROCORTISONE 1% TOPICAL CREAM 30 GM TUBE TP PRN (10:04)
[2021-02-01] MEDS: LIDOCAINE 5% TOPICAL PATCH TP SCH (11:55)
[2021-02-01] MEDS ORDERED: PT OWN MED DRAWER 7, Y5N ONE (19:47)
[2021-02-01] MEDS: HYDROCORTISONE 2.5% TOPICAL CREAM 30 GM TUBE RC SCH (22:05)
[2021-02-01] MEDS: MELATONIN 5 MG TABLETS PO SCH (22:05)
[2021-02-01] MEDS: LIDOCAINE PATCH REMOVAL MC SCH (22:06)
[2021-02-01] MEDS: THIAMINE HCL 100 MG TABLET (FP) PO SCH (22:06)
[2021-02-02] MEDS: NAPROXEN 500 MG TABLET PO PRN (06:25)
[2021-02-02] MEDS: MENTHOL/PHENOL 1 EACH UD MM PRN (06:25)
[2021-02-02] MEDS: ARTIFICIAL TEARS (POLYVINYL ALCOHOL) OPTH DROPS OU SCH (06:25)
[2021-02-02] MEDS: PANTOPRAZOLE 40 MG TABLET PO SCH (06:25)
[2021-02-02 07:21] VITALS: BP 128/83; TEMP 98.2
[2021-02-02] MEDS: LORATADINE 10 MG TABLET PO SCH (09:13)
[2021-02-02] MEDS: METHOCARBAMOL 500 MG TABLET PO SCH (09:13)
[2021-02-02] MEDS: amLODIPine BESYLATE 10 MG TABLET (FP) PO SCH (09:13)
[2021-02-02] MEDS: PRENATAL VITAMINS W/ FOLIC ACID TABLET (FP) PO SCH (09:13)
[2021-02-02] MEDS: MAG HYDROX/AL HYDROX/SIMETH 30 ML UNIT-DOSE CUP PO PRN (09:13)
[2021-02-02] MEDS: LIDOCAINE 5% TOPICAL PATCH TP SCH (09:14)
[2021-02-02] MEDS: NICOTINE 7 MG/24 HOURS TOPICAL PATCH TD SCH (09:14)
[2021-02-02] MEDS: CARBAMIDE PEROXIDE 6.5% OTIC 15 ML BOTTLE AU SCH (09:14)
[2021-02-02] MEDS ORDERED: PT OWN MED DRAWER 7, Y5N ONE (09:47)
[2021-02-02] MEDS: METHYL SALICYLATE/MENTHOL OINT 30 GM TUBE TP SCH (10:22)
== END 2021-02-02 10:00 | disposition home or self-care (01) | DRG 772 ==
LOC: YASAS 12:35 → Y3W 12:36
PROVIDERS: ADMIT Allergy & Immunology; ATTEND Allergy & Immunology
PROC: HZ42ZZZ Group Counseling for Substance Abuse Treatment, Cognitive-Behavioral (ICD-10-PCS; principal; 2021-01-17)
DX: F10.20 Alcohol dependence, uncomplicated (principal); I10 Essential (primary) hypertension; H54.7 Unspecified visual loss; J32.9 Chronic sinusitis, unspecified; K59.00 Constipation, unspecified; Z88.0 Allergy status to penicillin; Z88.7 Allergy status to serum and vaccine; Z91.018 Allergy to other foods

== ENCOUNTER 2021-03-30 15:07 | Inpatient (IN) | payer OTHER ==
[2021-03-30 16:07] VITALS: BMI 30.4
[2021-03-30] MEDS ORDERED: METHOCARBAMOL 500 MG TABLET PO PRN (17:34)
[2021-03-30] MEDS ORDERED: ACETAMINOPHEN 325 MG TABLET (FP) PO PRN (17:34)
[2021-03-30] MEDS ORDERED: MAGNESIUM CITRATE 300 ML BOTTLE PO PRN (17:34)
[2021-03-30] MEDS ORDERED: MAGNESIUM HYDROX 2400MG/30ML ORAL SUSPENSION 30 ML CUP PO PRN (17:34)
[2021-03-30] MEDS ORDERED: ONDANSETRON *ODT* 4 MG TABLET SL PRN (17:34)
[2021-03-30] MEDS ORDERED: hydrOXYzine PAMOATE 25 MG CAPSULE (FP) PO PRN (17:34)
[2021-03-30] MEDS ORDERED: BISMUTH SUBSALICYLATE 524 MG/30 ML PO PRN (17:34)
[2021-03-30] MEDS ORDERED: diazePAM 5 MG TABLET PO PRN (17:36)
[2021-03-30] MEDS: amLODIPine BESYLATE 10 MG TABLET (FP) PO SCH (19:39)
[2021-03-30] MEDS: THIAMINE HCL 100 MG TABLET (FP) PO SCH (23:08)
[2021-03-30] MEDS: diazePAM 5 MG TABLET PO SCH (23:08)
[2021-03-30] MEDS: MELATONIN 5 MG TABLETS PO SCH (23:09)
[2021-03-30] MEDS: METHYL SALICYLATE/MENTHOL OINT 30 GM TUBE TP SCH (23:09)
[2021-03-30] MEDS: ARTIFICIAL TEARS (POLYVINYL ALCOHOL) OPTH DROPS OU SCH (23:09)
[2021-03-31] MEDS: diazePAM 5 MG TABLET PO SCH ×4 (06:01→23:14)
[2021-03-31] MEDS: PANTOPRAZOLE 40 MG TABLET PO SCH (06:01)
[2021-03-31] MEDS: ARTIFICIAL TEARS (POLYVINYL ALCOHOL) OPTH DROPS OU SCH ×3 (06:44→23:14)
[2021-03-31] MEDS: NAPROXEN 500 MG TABLET PO PRN (10:45)
[2021-03-31] MEDS: amLODIPine BESYLATE 10 MG TABLET (FP) PO SCH (10:45)
[2021-03-31] MEDS: PRENATAL VITAMINS W/ FOLIC ACID TABLET (FP) PO SCH (10:46)
[2021-03-31] MEDS: SODIUM CHLORIDE NASAL SPRAY 44 ML BOTTLE NS PRN (10:46)
[2021-03-31] MEDS: HYDROCORTISONE 0.5% TOPICAL CREAM 30 GM TUBE TP PRN (10:47)
[2021-03-31] MEDS: MENTHOL/PHENOL 1 EACH UD MM PRN (10:48)
[2021-03-31] MEDS: METHYL SALICYLATE/MENTHOL OINT 30 GM TUBE TP SCH ×2 (10:48→23:14)
[2021-03-31 12:18] LABS: HEMATOCRIT 37.6 % (35.4-49); HEMOGLOBIN 12.7 GM/dL (11.7-16.9); MCH 31.7 pg (25.7-33.7); MCHC 33.9 g/dl (32.0-35.9); MEAN CELL VOLUME 93.7 fl (80-96); MEAN PLT VOLUME 8.2 fl (7.5-11.1); PLATELET COUNT 220 10^3/uL (134-434); RBC 4.01 M/mm3 (4.00-5.60); RDW 14.9 % (11.9-15.9); WHITE BLOOD COUNT 7.2 K/mm3 (4.0-10.0)
[2021-03-31 12:29] LABS: ALBUMIN 3.7 g/dl (3.4-5.0); BLOOD UREA NITROGEN 25.6 mg/dL (7-18); CREATININE 1.3 mg/dL (0.55-1.3)
[2021-03-31 12:30] LABS: BILIRUBIN,TOTAL 0.3 mg/dL (0.2-1); CALCIUM 8.6 mg/dL (8.5-10.1)
[2021-03-31 12:31] LABS: TOT PROT 7.2 g/dl (6.4-8.2)
[2021-03-31] MEDS: MAG HYDROX/AL HYDROX/SIMETH 30 ML UNIT-DOSE CUP PO PRN (16:37)
[2021-03-31] MEDS: MELATONIN 5 MG TABLETS PO SCH (23:14)
[2021-03-31] MEDS: THIAMINE HCL 100 MG TABLET (FP) PO SCH (23:14)
[2021-04-01] MEDS: ARTIFICIAL TEARS (POLYVINYL ALCOHOL) OPTH DROPS OU SCH ×3 (06:02→23:10)
[2021-04-01] MEDS: PANTOPRAZOLE 40 MG TABLET PO SCH (06:03)
[2021-04-01] MEDS: diazePAM 5 MG TABLET PO SCH ×3 (06:03→23:11)
[2021-04-01] MEDS: ACETAMINOPHEN 325 MG TABLET (FP) PO PRN (06:04)
[2021-04-01] MEDS: METHYL SALICYLATE/MENTHOL OINT 30 GM TUBE TP SCH ×2 (10:31→23:11)
[2021-04-01] MEDS: SODIUM CHLORIDE NASAL SPRAY 44 ML BOTTLE NS PRN (10:33)
[2021-04-01] MEDS: HYDROCORTISONE 0.5% TOPICAL CREAM 30 GM TUBE TP PRN (10:33)
[2021-04-01] MEDS: amLODIPine BESYLATE 10 MG TABLET (FP) PO SCH (10:34)
[2021-04-01] MEDS: MENTHOL/PHENOL 1 EACH UD MM PRN (10:34)
[2021-04-01] MEDS: PRENATAL VITAMINS W/ FOLIC ACID TABLET (FP) PO SCH (10:34)
[2021-04-01] MEDS: NAPROXEN 500 MG TABLET PO PRN (10:35)
[2021-04-01] MEDS: MAG HYDROX/AL HYDROX/SIMETH 30 ML UNIT-DOSE CUP PO PRN (13:40)
[2021-04-01] MEDS: MELATONIN 5 MG TABLETS PO SCH (23:11)
[2021-04-01] MEDS: THIAMINE HCL 100 MG TABLET (FP) PO SCH (23:14)
[2021-04-02] MEDS: PANTOPRAZOLE 40 MG TABLET PO SCH (05:36)
[2021-04-02] MEDS: diazePAM 5 MG TABLET PO SCH ×2 (05:36→17:31)
[2021-04-02] MEDS: ARTIFICIAL TEARS (POLYVINYL ALCOHOL) OPTH DROPS OU SCH ×3 (06:18→22:43)
[2021-04-02] MEDS: amLODIPine BESYLATE 10 MG TABLET (FP) PO SCH (10:48)
[2021-04-02] MEDS: PRENATAL VITAMINS W/ FOLIC ACID TABLET (FP) PO SCH (10:48)
[2021-04-02] MEDS: SODIUM CHLORIDE NASAL SPRAY 44 ML BOTTLE NS PRN (10:53)
[2021-04-02] MEDS: NAPROXEN 500 MG TABLET PO PRN (10:53)
[2021-04-02] MEDS: METHYL SALICYLATE/MENTHOL OINT 30 GM TUBE TP SCH ×2 (10:54→22:43)
[2021-04-02] MEDS: HYDROCORTISONE 0.5% TOPICAL CREAM 30 GM TUBE TP PRN (10:55)
[2021-04-02] MEDS: MAG HYDROX/AL HYDROX/SIMETH 30 ML UNIT-DOSE CUP PO PRN (10:56)
[2021-04-02] MEDS: MELATONIN 5 MG TABLETS PO SCH (22:43)
[2021-04-02] MEDS: THIAMINE HCL 100 MG TABLET (FP) PO SCH (22:44)
[2021-04-03] MEDS: PANTOPRAZOLE 40 MG TABLET PO SCH (05:55)
[2021-04-03] MEDS: ACETAMINOPHEN 325 MG TABLET (FP) PO PRN ×2 (05:56→14:29)
[2021-04-03] MEDS: ARTIFICIAL TEARS (POLYVINYL ALCOHOL) OPTH DROPS OU SCH ×2 (05:58→14:06)
[2021-04-03] MEDS ORDERED: diazePAM 5 MG TABLET PO ONE (06:00)
[2021-04-03] MEDS: SODIUM CHLORIDE NASAL SPRAY 44 ML BOTTLE NS PRN (09:46)
[2021-04-03] MEDS: PRENATAL VITAMINS W/ FOLIC ACID TABLET (FP) PO SCH (09:46)
[2021-04-03] MEDS: amLODIPine BESYLATE 10 MG TABLET (FP) PO SCH (09:46)
[2021-04-03] MEDS: NAPROXEN 500 MG TABLET PO PRN (09:46)
[2021-04-03] MEDS: MENTHOL/PHENOL 1 EACH UD MM PRN (09:47)
[2021-04-03] MEDS: METHYL SALICYLATE/MENTHOL OINT 30 GM TUBE TP SCH (09:47)
[2021-04-03 17:31] VITALS: BP 132/75; PULSE 83; TEMP 98.1
[2021-04-03] MEDS: MAG HYDROX/AL HYDROX/SIMETH 30 ML UNIT-DOSE CUP PO PRN (20:55)
== END 2021-04-03 20:56 | disposition other institution (70) | DRG 775 ==
LOC: YASAS 15:07 → Y3N 18:09
PROVIDERS: ADMIT Allergy & Immunology; ATTEND Allergy & Immunology
PROC: HZ2ZZZZ Detoxification Services for Substance Abuse Treatment (ICD-10-PCS; principal; 2021-03-30)
DX: F10.230 Alcohol dependence with withdrawal, uncomplicated (principal); F10.220 Alcohol dependence with intoxication, uncomplicated; F17.210 Nicotine dependence, cigarettes, uncomplicated; I10 Essential (primary) hypertension; K21.9 Gastro-esophageal reflux disease without esophagitis; G62.9 Polyneuropathy, unspecified; Z88.0 Allergy status to penicillin; Z88.8 Allergy status to other drugs, medicaments and biological substances; Z86.19 Personal history of other infectious and parasitic diseases
CPT/HCPCS: 36415; 80053; 85027; 86593; 86780; C9803; U0003; U0005

== ENCOUNTER 2021-04-03 20:49 | Inpatient (IN) | payer OTHER ==
[2021-04-03] MEDS ORDERED: P-EPHED 60MG/TRIPROLIDI 2.5MG TABLET PO PRN (22:39)
[2021-04-03] MEDS ORDERED: MAGNESIUM HYDROX 2400MG/30ML ORAL SUSPENSION 30 ML CUP PO PRN (22:39)
[2021-04-03] MEDS ORDERED: NICOTINE 10 MG CARTRIDGE (INHALER) IH PRN (22:39)
[2021-04-03] MEDS ORDERED: MAGNESIUM CITRATE 300 ML BOTTLE PO PRN (22:39)
[2021-04-03] MEDS ORDERED: LOPERAMIDE HCL 2 MG CAPSULE PO PRN (22:39)
[2021-04-03] MEDS: MELATONIN 5 MG TABLETS PO SCH (23:34)
[2021-04-04] MEDS: hydrOXYzine PAMOATE 25 MG CAPSULE (FP) PO SCH ×5 (06:25→22:02)
[2021-04-04] MEDS: PANTOPRAZOLE 40 MG TABLET PO SCH (06:29)
[2021-04-04] MEDS: ACETAMINOPHEN 325 MG TABLET (FP) PO PRN ×2 (06:29→13:59)
[2021-04-04] MEDS: PRENATAL VITAMINS W/ FOLIC ACID TABLET (FP) PO SCH (09:50)
[2021-04-04] MEDS: amLODIPine BESYLATE 10 MG TABLET (FP) PO SCH (09:51)
[2021-04-04] MEDS: NICOTINE 7 MG/24 HOURS TOPICAL PATCH TD SCH (09:51)
[2021-04-04] MEDS: SODIUM CHLORIDE NASAL SPRAY 44 ML BOTTLE NS PRN (09:53)
[2021-04-04] MEDS: IBUPROFEN 400 MG TABLET (FP) PO PRN ×2 (09:55→19:29)
[2021-04-04] MEDS: MAG HYDROX/AL HYDROX/SIMETH 30 ML UNIT-DOSE CUP PO PRN (17:59)
[2021-04-04] MEDS: METHYL SALICYLATE/MENTHOL OINT 30 GM TUBE TP PRN (19:54)
[2021-04-04] MEDS: THIAMINE HCL 100 MG TABLET (FP) PO SCH (22:02)
[2021-04-04] MEDS: MELATONIN 5 MG TABLETS PO SCH (22:02)
[2021-04-05] MEDS: ACETAMINOPHEN 325 MG TABLET (FP) PO PRN (06:42)
[2021-04-05] MEDS: PANTOPRAZOLE 40 MG TABLET PO SCH (06:43)
[2021-04-05] MEDS: hydrOXYzine PAMOATE 25 MG CAPSULE (FP) PO SCH ×3 (06:44→13:43)
[2021-04-05] MEDS: PRENATAL VITAMINS W/ FOLIC ACID TABLET (FP) PO SCH (09:55)
[2021-04-05] MEDS: amLODIPine BESYLATE 10 MG TABLET (FP) PO SCH (09:56)
[2021-04-05] MEDS: METHYL SALICYLATE/MENTHOL OINT 30 GM TUBE TP PRN (09:56)
[2021-04-05] MEDS: SODIUM CHLORIDE NASAL SPRAY 44 ML BOTTLE NS PRN (09:57)
[2021-04-05] MEDS: NICOTINE 7 MG/24 HOURS TOPICAL PATCH TD SCH (09:58)
[2021-04-05] MEDS: ARTIFICIAL TEARS (POLYVINYL ALCOHOL) OPTH DROPS OU SCH ×2 (14:47→21:55)
[2021-04-05] MEDS: IBUPROFEN 400 MG TABLET (FP) PO PRN (14:48)
[2021-04-05] MEDS ORDERED: hydrOXYzine PAMOATE 25 MG CAPSULE (FP) PO PRN (15:27)
[2021-04-05] MEDS: HYDROCORTISONE 2.5% TOPICAL CREAM 30 GM TUBE TP SCH (21:55)
[2021-04-05] MEDS: METHYL SALICYLATE/MENTHOL OINT 30 GM TUBE TP SCH (21:55)
[2021-04-05] MEDS: MELATONIN 5 MG TABLETS PO SCH (21:55)
[2021-04-05] MEDS: THIAMINE HCL 100 MG TABLET (FP) PO SCH (21:55)
[2021-04-06] MEDS: ACETAMINOPHEN 325 MG TABLET (FP) PO PRN ×2 (06:30→14:36)
[2021-04-06] MEDS: PANTOPRAZOLE 40 MG TABLET PO SCH (06:31)
[2021-04-06] MEDS: METHOCARBAMOL 500 MG TABLET PO PRN ×2 (06:33→14:36)
[2021-04-06] MEDS: ARTIFICIAL TEARS (POLYVINYL ALCOHOL) OPTH DROPS OU SCH ×3 (06:34→23:48)
[2021-04-06] MEDS: PRENATAL VITAMINS W/ FOLIC ACID TABLET (FP) PO SCH (10:15)
[2021-04-06] MEDS: METHYL SALICYLATE/MENTHOL OINT 30 GM TUBE TP SCH ×2 (10:16→23:48)
[2021-04-06] MEDS: HYDROCORTISONE 2.5% TOPICAL CREAM 30 GM TUBE TP SCH ×2 (10:16→23:48)
[2021-04-06] MEDS: amLODIPine BESYLATE 10 MG TABLET (FP) PO SCH (10:17)
[2021-04-06] MEDS: SODIUM CHLORIDE NASAL SPRAY 44 ML BOTTLE NS PRN (10:17)
[2021-04-06] MEDS: NICOTINE 7 MG/24 HOURS TOPICAL PATCH TD SCH (10:17)
[2021-04-06] MEDS: IBUPROFEN 400 MG TABLET (FP) PO PRN (10:18)
[2021-04-06] MEDS: guaiFENesin 200 MG/10 ML 10 ML UNIT-DOSE CUPS PO PRN (10:20)
[2021-04-06] MEDS: LIDOCAINE 5% TOPICAL PATCH TP SCH (16:33)
[2021-04-06] MEDS: LIDOCAINE PATCH REMOVAL MC SCH (23:48)
[2021-04-06] MEDS: MELATONIN 5 MG TABLETS PO SCH (23:48)
[2021-04-06] MEDS: THIAMINE HCL 100 MG TABLET (FP) PO SCH (23:48)
[2021-04-07] MEDS: PANTOPRAZOLE 40 MG TABLET PO SCH (06:29)
[2021-04-07] MEDS: ARTIFICIAL TEARS (POLYVINYL ALCOHOL) OPTH DROPS OU SCH ×3 (06:29→21:25)
[2021-04-07] MEDS: MENTHOL/PHENOL 1 EACH UD MM PRN (06:31)
[2021-04-07] MEDS: METHOCARBAMOL 500 MG TABLET PO PRN ×3 (06:31→21:25)
[2021-04-07] MEDS: ACETAMINOPHEN 325 MG TABLET (FP) PO PRN ×2 (06:31→14:12)
[2021-04-07] MEDS: NAPROXEN 500 MG TABLET PO PRN ×2 (10:11→21:25)
[2021-04-07] MEDS: amLODIPine BESYLATE 10 MG TABLET (FP) PO SCH (10:11)
[2021-04-07] MEDS: PRENATAL VITAMINS W/ FOLIC ACID TABLET (FP) PO SCH (10:11)
[2021-04-07] MEDS: guaiFENesin 200 MG/10 ML 10 ML UNIT-DOSE CUPS PO PRN ×2 (10:12→21:29)
[2021-04-07] MEDS: SODIUM CHLORIDE NASAL SPRAY 44 ML BOTTLE NS PRN (10:12)
[2021-04-07] MEDS: HYDROCORTISONE 2.5% TOPICAL CREAM 30 GM TUBE TP SCH ×2 (10:12→21:27)
[2021-04-07] MEDS: NICOTINE 7 MG/24 HOURS TOPICAL PATCH TD SCH (10:12)
[2021-04-07] MEDS: LIDOCAINE 5% TOPICAL PATCH TP SCH (10:12)
[2021-04-07] MEDS: MAG HYDROX/AL HYDROX/SIMETH 30 ML UNIT-DOSE CUP PO PRN ×2 (14:11→21:26)
[2021-04-07] MEDS: THIAMINE HCL 100 MG TABLET (FP) PO SCH (21:26)
[2021-04-07] MEDS: METHYL SALICYLATE/MENTHOL OINT 30 GM TUBE TP SCH (21:26)
[2021-04-07] MEDS: LIDOCAINE PATCH REMOVAL MC SCH (21:26)
[2021-04-07] MEDS: MELATONIN 5 MG TABLETS PO SCH (22:14)
[2021-04-08] MEDS: ACETAMINOPHEN 325 MG TABLET (FP) PO PRN ×2 (06:07→13:43)
[2021-04-08] MEDS: PANTOPRAZOLE 40 MG TABLET PO SCH (06:08)
[2021-04-08] MEDS: METHOCARBAMOL 500 MG TABLET PO PRN ×3 (06:08→21:28)
[2021-04-08] MEDS: ARTIFICIAL TEARS (POLYVINYL ALCOHOL) OPTH DROPS OU SCH ×3 (06:09→21:29)
[2021-04-08] MEDS: NICOTINE 7 MG/24 HOURS TOPICAL PATCH TD SCH (10:25)
[2021-04-08] MEDS: PRENATAL VITAMINS W/ FOLIC ACID TABLET (FP) PO SCH (10:25)
[2021-04-08] MEDS: LIDOCAINE 5% TOPICAL PATCH TP SCH (10:25)
[2021-04-08] MEDS: NAPROXEN 500 MG TABLET PO PRN ×2 (10:26→21:29)
[2021-04-08] MEDS: SODIUM CHLORIDE NASAL SPRAY 44 ML BOTTLE NS PRN ×2 (10:26→21:29)
[2021-04-08] MEDS: amLODIPine BESYLATE 10 MG TABLET (FP) PO SCH (10:26)
[2021-04-08] MEDS: guaiFENesin 200 MG/10 ML 10 ML UNIT-DOSE CUPS PO PRN ×2 (10:27→21:31)
[2021-04-08] MEDS: HYDROCORTISONE 2.5% TOPICAL CREAM 30 GM TUBE TP SCH ×2 (10:27→21:31)
[2021-04-08] MEDS: MAG HYDROX/AL HYDROX/SIMETH 30 ML UNIT-DOSE CUP PO PRN (13:42)
[2021-04-08] MEDS: METHYL SALICYLATE/MENTHOL OINT 30 GM TUBE TP SCH (21:29)
[2021-04-08] MEDS: MELATONIN 5 MG TABLETS PO SCH (21:30)
[2021-04-08] MEDS: LIDOCAINE PATCH REMOVAL MC SCH (21:30)
[2021-04-08] MEDS: THIAMINE HCL 100 MG TABLET (FP) PO SCH (21:30)
[2021-04-09] MEDS: ACETAMINOPHEN 325 MG TABLET (FP) PO PRN ×2 (06:33→14:20)
[2021-04-09] MEDS: PANTOPRAZOLE 40 MG TABLET PO SCH (06:34)
[2021-04-09] MEDS: ARTIFICIAL TEARS (POLYVINYL ALCOHOL) OPTH DROPS OU SCH ×3 (06:34→21:42)
[2021-04-09] MEDS: METHOCARBAMOL 500 MG TABLET PO PRN ×2 (06:34→10:53)
[2021-04-09] MEDS: MENTHOL/PHENOL 1 EACH UD MM PRN (06:35)
[2021-04-09] MEDS: amLODIPine BESYLATE 10 MG TABLET (FP) PO SCH (10:49)
[2021-04-09] MEDS: PRENATAL VITAMINS W/ FOLIC ACID TABLET (FP) PO SCH (10:49)
[2021-04-09] MEDS: NICOTINE 7 MG/24 HOURS TOPICAL PATCH TD SCH (10:50)
[2021-04-09] MEDS: HYDROCORTISONE 2.5% TOPICAL CREAM 30 GM TUBE TP SCH ×2 (10:50→23:53)
[2021-04-09] MEDS: LIDOCAINE 5% TOPICAL PATCH TP SCH (10:50)
[2021-04-09] MEDS: SODIUM CHLORIDE NASAL SPRAY 44 ML BOTTLE NS PRN ×2 (10:51→21:44)
[2021-04-09] MEDS: NAPROXEN 500 MG TABLET PO PRN ×2 (10:52→21:45)
[2021-04-09] MEDS: guaiFENesin 200 MG/10 ML 10 ML UNIT-DOSE CUPS PO PRN ×2 (10:53→21:46)
[2021-04-09] MEDS: MAG HYDROX/AL HYDROX/SIMETH 30 ML UNIT-DOSE CUP PO PRN (13:24)
[2021-04-09] MEDS: METHYL SALICYLATE/MENTHOL OINT 30 GM TUBE TP SCH (21:44)
[2021-04-09] MEDS: LIDOCAINE PATCH REMOVAL MC SCH (21:45)
[2021-04-09] MEDS: MELATONIN 5 MG TABLETS PO SCH (21:45)
[2021-04-09] MEDS: THIAMINE HCL 100 MG TABLET (FP) PO SCH (23:53)
[2021-04-10] MEDS: METHOCARBAMOL 500 MG TABLET PO PRN ×2 (06:51→21:42)
[2021-04-10] MEDS: ACETAMINOPHEN 325 MG TABLET (FP) PO PRN ×2 (06:51→14:38)
[2021-04-10] MEDS: PANTOPRAZOLE 40 MG TABLET PO SCH (06:51)
[2021-04-10] MEDS: ARTIFICIAL TEARS (POLYVINYL ALCOHOL) OPTH DROPS OU SCH ×3 (06:52→21:37)
[2021-04-10] MEDS: NAPROXEN 500 MG TABLET PO PRN ×2 (10:06→21:42)
[2021-04-10] MEDS: SODIUM CHLORIDE NASAL SPRAY 44 ML BOTTLE NS PRN ×2 (10:06→21:41)
[2021-04-10] MEDS: amLODIPine BESYLATE 10 MG TABLET (FP) PO SCH (10:06)
[2021-04-10] MEDS: NICOTINE 7 MG/24 HOURS TOPICAL PATCH TD SCH (10:06)
[2021-04-10] MEDS: PRENATAL VITAMINS W/ FOLIC ACID TABLET (FP) PO SCH (10:06)
[2021-04-10] MEDS: LIDOCAINE 5% TOPICAL PATCH TP SCH (10:06)
[2021-04-10] MEDS: guaiFENesin 200 MG/10 ML 10 ML UNIT-DOSE CUPS PO PRN ×2 (10:09→21:42)
[2021-04-10] MEDS: HYDROCORTISONE 2.5% TOPICAL CREAM 30 GM TUBE TP SCH ×2 (10:15→21:37)
[2021-04-10] MEDS: MENTHOL/PHENOL 1 EACH UD MM PRN (14:40)
[2021-04-10] MEDS: METHYL SALICYLATE/MENTHOL OINT 30 GM TUBE TP SCH ×2 (21:37→22:51)
[2021-04-10] MEDS: LIDOCAINE PATCH REMOVAL MC SCH (21:37)
[2021-04-10] MEDS: THIAMINE HCL 100 MG TABLET (FP) PO SCH (21:40)
[2021-04-10] MEDS: MELATONIN 5 MG TABLETS PO SCH (22:51)
[2021-04-11] MEDS: ACETAMINOPHEN 325 MG TABLET (FP) PO PRN ×2 (06:08→14:44)
[2021-04-11] MEDS: ARTIFICIAL TEARS (POLYVINYL ALCOHOL) OPTH DROPS OU SCH ×3 (06:09→21:49)
[2021-04-11] MEDS: PANTOPRAZOLE 40 MG TABLET PO SCH (06:09)
[2021-04-11] MEDS: METHOCARBAMOL 500 MG TABLET PO PRN ×3 (06:09→21:50)
[2021-04-11] MEDS: SODIUM CHLORIDE NASAL SPRAY 44 ML BOTTLE NS PRN (10:04)
[2021-04-11] MEDS: NAPROXEN 500 MG TABLET PO PRN ×2 (10:05→21:50)
[2021-04-11] MEDS: amLODIPine BESYLATE 10 MG TABLET (FP) PO SCH (10:05)
[2021-04-11] MEDS: NICOTINE 7 MG/24 HOURS TOPICAL PATCH TD SCH (10:05)
[2021-04-11] MEDS: PRENATAL VITAMINS W/ FOLIC ACID TABLET (FP) PO SCH (10:05)
[2021-04-11] MEDS: METHYL SALICYLATE/MENTHOL OINT 30 GM TUBE TP SCH ×3 (10:06→21:51)
[2021-04-11] MEDS: HYDROCORTISONE 2.5% TOPICAL CREAM 30 GM TUBE TP SCH ×2 (10:06→21:49)
[2021-04-11] MEDS: LIDOCAINE 5% TOPICAL PATCH TP SCH (10:06)
[2021-04-11] MEDS: guaiFENesin 200 MG/10 ML 10 ML UNIT-DOSE CUPS PO PRN (10:08)
[2021-04-11] MEDS: MELATONIN 5 MG TABLETS PO SCH (21:46)
[2021-04-11] MEDS: MAG HYDROX/AL HYDROX/SIMETH 30 ML UNIT-DOSE CUP PO PRN (21:50)
[2021-04-11] MEDS: THIAMINE HCL 100 MG TABLET (FP) PO SCH (21:50)
[2021-04-11] MEDS: LIDOCAINE PATCH REMOVAL MC SCH (21:52)
[2021-04-12] MEDS: ARTIFICIAL TEARS (POLYVINYL ALCOHOL) OPTH DROPS OU SCH ×3 (06:15→21:33)
[2021-04-12] MEDS: MENTHOL/PHENOL 1 EACH UD MM PRN (06:16)
[2021-04-12] MEDS: METHOCARBAMOL 500 MG TABLET PO PRN ×3 (06:16→21:32)
[2021-04-12] MEDS: PANTOPRAZOLE 40 MG TABLET PO SCH (06:16)
[2021-04-12] MEDS: ACETAMINOPHEN 325 MG TABLET (FP) PO PRN ×2 (06:16→14:43)
[2021-04-12] MEDS: SODIUM CHLORIDE NASAL SPRAY 44 ML BOTTLE NS PRN ×2 (10:14→21:32)
[2021-04-12] MEDS: PRENATAL VITAMINS W/ FOLIC ACID TABLET (FP) PO SCH (10:14)
[2021-04-12] MEDS: amLODIPine BESYLATE 10 MG TABLET (FP) PO SCH (10:15)
[2021-04-12] MEDS: NICOTINE 7 MG/24 HOURS TOPICAL PATCH TD SCH (10:15)
[2021-04-12] MEDS: LIDOCAINE 5% TOPICAL PATCH TP SCH (10:16)
[2021-04-12] MEDS: METHYL SALICYLATE/MENTHOL OINT 30 GM TUBE TP SCH ×3 (10:16→21:34)
[2021-04-12] MEDS: HYDROCORTISONE 2.5% TOPICAL CREAM 30 GM TUBE TP SCH ×2 (10:18→21:33)
[2021-04-12] MEDS: NAPROXEN 500 MG TABLET PO PRN ×2 (10:19→21:32)
[2021-04-12] MEDS: MAG HYDROX/AL HYDROX/SIMETH 30 ML UNIT-DOSE CUP PO PRN (19:00)
[2021-04-12] MEDS: THIAMINE HCL 100 MG TABLET (FP) PO SCH (21:32)
[2021-04-12] MEDS: LIDOCAINE PATCH REMOVAL MC SCH (21:34)
[2021-04-12] MEDS: MELATONIN 5 MG TABLETS PO SCH (21:34)
[2021-04-13] MEDS: ACETAMINOPHEN 325 MG TABLET (FP) PO PRN ×2 (06:42→13:50)
[2021-04-13] MEDS: PANTOPRAZOLE 40 MG TABLET PO SCH (06:42)
[2021-04-13] MEDS: METHOCARBAMOL 500 MG TABLET PO PRN ×3 (06:42→21:41)
[2021-04-13] MEDS: ARTIFICIAL TEARS (POLYVINYL ALCOHOL) OPTH DROPS OU SCH ×3 (06:44→22:12)
[2021-04-13] MEDS ORDERED: PT OWN MED DRAWER 7, Y5N ONE (08:52)
[2021-04-13] MEDS: METHYL SALICYLATE/MENTHOL OINT 30 GM TUBE TP SCH ×3 (10:02→21:42)
[2021-04-13] MEDS: PRENATAL VITAMINS W/ FOLIC ACID TABLET (FP) PO SCH (10:02)
[2021-04-13] MEDS: LIDOCAINE 5% TOPICAL PATCH TP SCH (10:03)
[2021-04-13] MEDS: NICOTINE 7 MG/24 HOURS TOPICAL PATCH TD SCH (10:03)
[2021-04-13] MEDS: HYDROCORTISONE 2.5% TOPICAL CREAM 30 GM TUBE TP SCH ×2 (10:04→22:12)
[2021-04-13] MEDS: guaiFENesin 200 MG/10 ML 10 ML UNIT-DOSE CUPS PO PRN ×2 (10:04→21:44)
[2021-04-13] MEDS: amLODIPine BESYLATE 10 MG TABLET (FP) PO SCH (10:04)
[2021-04-13] MEDS: NAPROXEN 500 MG TABLET PO PRN ×2 (10:04→21:41)
[2021-04-13] MEDS: MAG HYDROX/AL HYDROX/SIMETH 30 ML UNIT-DOSE CUP PO PRN (16:44)
[2021-04-13] MEDS: SODIUM CHLORIDE NASAL SPRAY 44 ML BOTTLE NS PRN (21:40)
[2021-04-13] MEDS: LIDOCAINE PATCH REMOVAL MC SCH (21:41)
[2021-04-13] MEDS: MELATONIN 5 MG TABLETS PO SCH (21:41)
[2021-04-13] MEDS: THIAMINE HCL 100 MG TABLET (FP) PO SCH (21:41)
[2021-04-14] MEDS: PANTOPRAZOLE 40 MG TABLET PO SCH (07:06)
[2021-04-14] MEDS: ACETAMINOPHEN 325 MG TABLET (FP) PO PRN ×2 (07:06→14:12)
[2021-04-14] MEDS: ARTIFICIAL TEARS (POLYVINYL ALCOHOL) OPTH DROPS OU SCH ×3 (07:08→21:29)
[2021-04-14] MEDS: LIDOCAINE 5% TOPICAL PATCH TP SCH (10:17)
[2021-04-14] MEDS: NAPROXEN 500 MG TABLET PO PRN ×2 (10:17→21:31)
[2021-04-14] MEDS: NICOTINE 7 MG/24 HOURS TOPICAL PATCH TD SCH (10:17)
[2021-04-14] MEDS: amLODIPine BESYLATE 10 MG TABLET (FP) PO SCH (10:17)
[2021-04-14] MEDS: PRENATAL VITAMINS W/ FOLIC ACID TABLET (FP) PO SCH (10:17)
[2021-04-14] MEDS: HYDROCORTISONE 2.5% TOPICAL CREAM 30 GM TUBE TP SCH ×2 (10:18→21:34)
[2021-04-14] MEDS: METHYL SALICYLATE/MENTHOL OINT 30 GM TUBE TP SCH ×3 (10:18→21:30)
[2021-04-14] MEDS: guaiFENesin 200 MG/10 ML 10 ML UNIT-DOSE CUPS PO PRN ×2 (14:11→21:31)
[2021-04-14] MEDS: SODIUM CHLORIDE NASAL SPRAY 44 ML BOTTLE NS PRN ×2 (14:11→21:31)
[2021-04-14] MEDS: METHOCARBAMOL 500 MG TABLET PO PRN ×2 (14:12→21:31)
[2021-04-14] MEDS: THIAMINE HCL 100 MG TABLET (FP) PO SCH (21:33)
[2021-04-14] MEDS: MELATONIN 5 MG TABLETS PO SCH (21:35)
[2021-04-14] MEDS: LIDOCAINE PATCH REMOVAL MC SCH (21:35)
[2021-04-15] MEDS: ARTIFICIAL TEARS (POLYVINYL ALCOHOL) OPTH DROPS OU SCH ×3 (06:54→21:39)
[2021-04-15] MEDS: ACETAMINOPHEN 325 MG TABLET (FP) PO PRN ×2 (06:56→14:17)
[2021-04-15] MEDS: METHOCARBAMOL 500 MG TABLET PO PRN ×3 (06:56→21:36)
[2021-04-15] MEDS: PANTOPRAZOLE 40 MG TABLET PO SCH (06:57)
[2021-04-15] MEDS: MENTHOL/PHENOL 1 EACH UD MM PRN (06:58)
[2021-04-15] MEDS: LIDOCAINE 5% TOPICAL PATCH TP SCH (10:09)
[2021-04-15] MEDS: guaiFENesin 200 MG/10 ML 10 ML UNIT-DOSE CUPS PO PRN ×2 (10:10→21:41)
[2021-04-15] MEDS: SODIUM CHLORIDE NASAL SPRAY 44 ML BOTTLE NS PRN ×2 (10:10→21:37)
[2021-04-15] MEDS: NICOTINE 7 MG/24 HOURS TOPICAL PATCH TD SCH (10:11)
[2021-04-15] MEDS: METHYL SALICYLATE/MENTHOL OINT 30 GM TUBE TP SCH ×3 (10:11→21:39)
[2021-04-15] MEDS: PRENATAL VITAMINS W/ FOLIC ACID TABLET (FP) PO SCH (10:11)
[2021-04-15] MEDS: HYDROCORTISONE 2.5% TOPICAL CREAM 30 GM TUBE TP SCH ×2 (10:11→21:36)
[2021-04-15] MEDS: NAPROXEN 500 MG TABLET PO PRN ×2 (10:11→21:36)
[2021-04-15] MEDS: amLODIPine BESYLATE 10 MG TABLET (FP) PO SCH (10:11)
[2021-04-15] MEDS: THIAMINE HCL 100 MG TABLET (FP) PO SCH (21:36)
[2021-04-15] MEDS: LIDOCAINE PATCH REMOVAL MC SCH (21:38)
[2021-04-15] MEDS: MELATONIN 5 MG TABLETS PO SCH (21:38)
[2021-04-16] MEDS: PANTOPRAZOLE 40 MG TABLET PO SCH (06:59)
[2021-04-16] MEDS: METHOCARBAMOL 500 MG TABLET PO PRN (06:59)
[2021-04-16] MEDS: ACETAMINOPHEN 325 MG TABLET (FP) PO PRN (07:01)
[2021-04-16 07:11] VITALS: BP 122/66; PULSE 88; TEMP 97.1
[2021-04-16] MEDS: ARTIFICIAL TEARS (POLYVINYL ALCOHOL) OPTH DROPS OU SCH (07:18)
[2021-04-16] MEDS: HYDROCORTISONE 2.5% TOPICAL CREAM 30 GM TUBE TP SCH (09:47)
[2021-04-16] MEDS: METHYL SALICYLATE/MENTHOL OINT 30 GM TUBE TP SCH (09:47)
[2021-04-16] MEDS: NAPROXEN 500 MG TABLET PO PRN (09:47)
[2021-04-16] MEDS: amLODIPine BESYLATE 10 MG TABLET (FP) PO SCH (09:47)
[2021-04-16] MEDS: LIDOCAINE 5% TOPICAL PATCH TP SCH (09:48)
[2021-04-16] MEDS: NICOTINE 7 MG/24 HOURS TOPICAL PATCH TD SCH (09:48)
[2021-04-16] MEDS: PRENATAL VITAMINS W/ FOLIC ACID TABLET (FP) PO SCH (09:48)
[2021-04-16] MEDS: guaiFENesin 200 MG/10 ML 10 ML UNIT-DOSE CUPS PO PRN (09:50)
== END 2021-04-16 09:55 | disposition home or self-care (01) | DRG 772 ==
LOC: Y5N 20:49
PROVIDERS: ADMIT Allergy & Immunology; ATTEND Allergy & Immunology
PROC: HZ42ZZZ Group Counseling for Substance Abuse Treatment, Cognitive-Behavioral (ICD-10-PCS; principal; 2021-04-03)
DX: F10.20 Alcohol dependence, uncomplicated (principal); F14.20 Cocaine dependence, uncomplicated; F12.20 Cannabis dependence, uncomplicated; F17.210 Nicotine dependence, cigarettes, uncomplicated; I10 Essential (primary) hypertension; K21.9 Gastro-esophageal reflux disease without esophagitis; H57.89 Other specified disorders of eye and adnexa; H04.129 Dry eye syndrome of unspecified lacrimal gland; J30.9 Allergic rhinitis, unspecified; M54.59 Other low back pain; G89.29 Other chronic pain; E66.9 Obesity, unspecified; Z68.35 Body mass index [BMI] 35.0-35.9, adult; Z91.19 Patient's noncompliance with other medical treatment and regimen

== ENCOUNTER 2021-06-01 09:53 | Inpatient (IN) | payer OTHER ==
[2021-06-01 10:24] VITALS: BMI 31.6
[2021-06-01] MEDS ORDERED: MAGNESIUM CITRATE 300 ML BOTTLE PO PRN (12:34)
[2021-06-01] MEDS ORDERED: IBUPROFEN 400 MG TABLET (FP) PO PRN (12:34)
[2021-06-01] MEDS ORDERED: ACETAMINOPHEN 325 MG TABLET (FP) PO PRN (12:34)
[2021-06-01] MEDS ORDERED: chlordiazePOXIDE HCL 25 MG CAPSULE PO PRN (12:34)
[2021-06-01] MEDS ORDERED: NICOTINE 10 MG CARTRIDGE (INHALER) IH PRN (12:34)
[2021-06-01] MEDS ORDERED: MAGNESIUM HYDROX 2400MG/30ML ORAL SUSPENSION 30 ML CUP PO PRN (12:34)
[2021-06-01] MEDS ORDERED: ONDANSETRON *ODT* 4 MG TABLET SL PRN (12:34)
[2021-06-01] MEDS ORDERED: BISMUTH SUBSALICYLATE 262 MG/15 ML BTL PO PRN (12:34)
[2021-06-01] MEDS ORDERED: hydrOXYzine PAMOATE 25 MG CAPSULE (FP) PO PRN (14:00)
[2021-06-01] MEDS: chlordiazePOXIDE HCL 25 MG CAPSULE PO SCH ×2 (18:13→22:36)
[2021-06-01] MEDS: MELATONIN 5 MG TABLETS PO SCH (22:36)
[2021-06-01] MEDS: THIAMINE HCL 100 MG TABLET (FP) PO SCH (22:36)
[2021-06-02] MEDS: MENTHOL/PHENOL 1 EACH UD MM PRN (05:33)
[2021-06-02] MEDS: ACETAMINOPHEN 325 MG TABLET (FP) PO PRN (05:34)
[2021-06-02] MEDS: chlordiazePOXIDE HCL 25 MG CAPSULE PO SCH ×4 (05:34→23:09)
[2021-06-02] MEDS ORDERED: SODIUM CHLORIDE NASAL SPRAY 44 ML BOTTLE NS PRN (08:36)
[2021-06-02 09:37] LABS: HEMATOCRIT 39.5 % (35.4-49); HEMOGLOBIN 13.5 GM/dL (11.7-16.9); MCH 31.8 pg (25.7-33.7); MCHC 34.2 g/dl (32.0-35.9); MEAN PLT VOLUME 8.7 fl (7.5-11.1); PLATELET COUNT 207 10^3/uL (134-434); RBC 4.25 M/mm3 (4.00-5.60); RDW 13.8 % (11.9-15.9); WHITE BLOOD COUNT 6.5 K/mm3 (4.0-10.0)
[2021-06-02 10:17] LABS: ALBUMIN 4.2 g/dl (3.4-5.0)
[2021-06-02] MEDS: amLODIPine BESYLATE 10 MG TABLET (FP) PO SCH (10:19)
[2021-06-02] MEDS: PANTOPRAZOLE 40 MG TABLET PO SCH (10:19)
[2021-06-02] MEDS: PRENATAL VITAMINS W/ FOLIC ACID TABLET (FP) PO SCH (10:19)
[2021-06-02 10:20] LABS: CREATININE 1.3 mg/dL (0.55-1.3)
[2021-06-02 10:21] LABS: CALCIUM 8.7 mg/dL (8.5-10.1)
[2021-06-02 10:22] LABS: TOT PROT 7.5 g/dl (6.4-8.2)
[2021-06-02] MEDS: ARTIFICIAL TEARS (POLYVINYL ALCOHOL) OPTH DROPS OU SCH ×2 (15:00→23:08)
[2021-06-02] MEDS: MAG HYDROX/AL HYDROX/SIMETH 30 ML UNIT-DOSE CUP PO PRN (18:20)
[2021-06-02] MEDS: THIAMINE HCL 100 MG TABLET (FP) PO SCH (23:08)
[2021-06-02] MEDS: MELATONIN 5 MG TABLETS PO SCH (23:08)
[2021-06-03] MEDS: ACETAMINOPHEN 325 MG TABLET (FP) PO PRN ×2 (00:01→10:30)
[2021-06-03] MEDS: chlordiazePOXIDE HCL 25 MG CAPSULE PO SCH ×4 (05:39→23:06)
[2021-06-03] MEDS: PANTOPRAZOLE 40 MG TABLET PO SCH (05:39)
[2021-06-03] MEDS: ARTIFICIAL TEARS (POLYVINYL ALCOHOL) OPTH DROPS OU SCH ×3 (05:40→23:06)
[2021-06-03] MEDS: amLODIPine BESYLATE 10 MG TABLET (FP) PO SCH (10:27)
[2021-06-03] MEDS: PRENATAL VITAMINS W/ FOLIC ACID TABLET (FP) PO SCH (10:27)
[2021-06-03] MEDS: METHOCARBAMOL 500 MG TABLET PO PRN (10:27)
[2021-06-03] MEDS: MAG HYDROX/AL HYDROX/SIMETH 30 ML UNIT-DOSE CUP PO PRN (13:20)
[2021-06-03] MEDS ORDERED: NAPROXEN 375 MG TABLET PO SCH (22:00)
[2021-06-03] MEDS: MELATONIN 5 MG TABLETS PO SCH (23:06)
[2021-06-03] MEDS: THIAMINE HCL 100 MG TABLET (FP) PO SCH (23:06)
[2021-06-04] MEDS ORDERED: chlordiazePOXIDE HCL 10 MG CAPSULE PO PRN
[2021-06-04] MEDS: ARTIFICIAL TEARS (POLYVINYL ALCOHOL) OPTH DROPS OU SCH ×3 (00:01→14:45)
[2021-06-04] MEDS: chlordiazePOXIDE HCL 10 MG CAPSULE PO SCH ×4 (05:42→23:08)
[2021-06-04] MEDS: PANTOPRAZOLE 40 MG TABLET PO SCH (05:42)
[2021-06-04] MEDS: METHOCARBAMOL 500 MG TABLET PO PRN (05:43)
[2021-06-04] MEDS: MENTHOL/PHENOL 1 EACH UD MM PRN (05:44)
[2021-06-04] MEDS: PRENATAL VITAMINS W/ FOLIC ACID TABLET (FP) PO SCH (10:28)
[2021-06-04] MEDS: amLODIPine BESYLATE 10 MG TABLET (FP) PO SCH (10:28)
[2021-06-04] MEDS: NAPROXEN 375 MG TABLET PO PRN (16:44)
[2021-06-04] MEDS: MELATONIN 5 MG TABLETS PO SCH (22:04)
[2021-06-04] MEDS: THIAMINE HCL 100 MG TABLET (FP) PO SCH (22:07)
[2021-06-04] MEDS: HYDROCORTISONE 2.5% TOPICAL CREAM 30 GM TUBE RC SCH (23:57)
[2021-06-05] MEDS: PANTOPRAZOLE 40 MG TABLET PO SCH (06:35)
[2021-06-05] MEDS: chlordiazePOXIDE HCL 10 MG CAPSULE PO SCH ×2 (06:36→18:06)
[2021-06-05] MEDS: ARTIFICIAL TEARS (POLYVINYL ALCOHOL) OPTH DROPS OU SCH ×4 (06:36→22:22)
[2021-06-05] MEDS: NAPROXEN 375 MG TABLET PO PRN (06:39)
[2021-06-05] MEDS: amLODIPine BESYLATE 10 MG TABLET (FP) PO SCH (10:47)
[2021-06-05] MEDS: PRENATAL VITAMINS W/ FOLIC ACID TABLET (FP) PO SCH (10:48)
[2021-06-05] MEDS: METHOCARBAMOL 500 MG TABLET PO PRN ×2 (10:48→18:06)
[2021-06-05] MEDS: MENTHOL/PHENOL 1 EACH UD MM PRN (14:33)
[2021-06-05] MEDS: HYDROCORTISONE 2.5% TOPICAL CREAM 30 GM TUBE RC SCH (22:23)
[2021-06-05] MEDS: MELATONIN 5 MG TABLETS PO SCH (22:24)
[2021-06-05] MEDS: THIAMINE HCL 100 MG TABLET (FP) PO SCH (22:26)
[2021-06-06] MEDS ORDERED: chlordiazePOXIDE HCL 10 MG CAPSULE PO ONE (05:00)
[2021-06-06] MEDS: PANTOPRAZOLE 40 MG TABLET PO SCH (06:07)
[2021-06-06] MEDS: NAPROXEN 375 MG TABLET PO PRN (06:08)
[2021-06-06] MEDS: ARTIFICIAL TEARS (POLYVINYL ALCOHOL) OPTH DROPS OU SCH ×2 (06:08→14:10)
[2021-06-06] MEDS: PRENATAL VITAMINS W/ FOLIC ACID TABLET (FP) PO SCH (11:08)
[2021-06-06] MEDS: amLODIPine BESYLATE 10 MG TABLET (FP) PO SCH (11:08)
[2021-06-06] MEDS: METHOCARBAMOL 500 MG TABLET PO PRN (11:11)
[2021-06-06 19:42] VITALS: BP 124/78; PULSE 101; TEMP 97.3
== END 2021-06-06 17:45 | disposition other institution (70) | DRG 774 ==
LOC: YASAS 09:53 → Y6N 13:52
PROVIDERS: ADMIT Allergy & Immunology; ATTEND Allergy & Immunology
PROC: HZ2ZZZZ Detoxification Services for Substance Abuse Treatment (ICD-10-PCS; principal; 2021-06-01)
DX: F10.230 Alcohol dependence with withdrawal, uncomplicated (principal); F14.10 Cocaine abuse, uncomplicated; F12.10 Cannabis abuse, uncomplicated; F17.210 Nicotine dependence, cigarettes, uncomplicated; I10 Essential (primary) hypertension; K21.9 Gastro-esophageal reflux disease without esophagitis; K64.9 Unspecified hemorrhoids; E66.9 Obesity, unspecified; Z68.31 Body mass index [BMI] 31.0-31.9, adult; Z86.19 Personal history of other infectious and parasitic diseases; Z86.11 Personal history of tuberculosis; Z87.19 Personal history of other diseases of the digestive system; Z88.0 Allergy status to penicillin; Z88.7 Allergy status to serum and vaccine; Z91.018 Allergy to other foods
CPT/HCPCS: 36415; 80053; 85027; 86593; 86780; C9803; U0003; U0005

== ENCOUNTER 2021-06-06 09:05 | Inpatient (IN) | payer OTHER ==
[2021-06-06] MEDS ORDERED: MAGNESIUM CITRATE 300 ML BOTTLE PO PRN (17:37)
[2021-06-06] MEDS ORDERED: LOPERAMIDE HCL 2 MG CAPSULE PO PRN (17:37)
[2021-06-06] MEDS ORDERED: MELATONIN 5 MG TABLETS PO PRN (17:37)
[2021-06-06] MEDS ORDERED: P-EPHED 60MG/TRIPROLIDI 2.5MG TABLET PO PRN (17:37)
[2021-06-06] MEDS ORDERED: IBUPROFEN 400 MG TABLET (FP) PO PRN (17:37)
[2021-06-06] MEDS: FAMOTIDINE 20 MG TABLET PO SCH (23:45)
[2021-06-06] MEDS: THIAMINE HCL 100 MG TABLET (FP) PO SCH (23:46)
[2021-06-07] MEDS: guaiFENesin 200 MG/10 ML 10 ML UNIT-DOSE CUPS PO PRN (06:25)
[2021-06-07] MEDS: ACETAMINOPHEN 325 MG TABLET (FP) PO PRN (06:25)
[2021-06-07] MEDS: LIDOCAINE 5% TOPICAL PATCH TP SCH (10:42)
[2021-06-07] MEDS: PANTOPRAZOLE 20 MG TABLET PO SCH (10:44)
[2021-06-07] MEDS: PRENATAL VITAMINS W/ FOLIC ACID TABLET (FP) PO SCH (10:44)
[2021-06-07] MEDS: FAMOTIDINE 20 MG TABLET PO SCH ×2 (10:44→21:50)
[2021-06-07] MEDS: NAPROXEN 500 MG TABLET PO SCH (10:46)
[2021-06-07] MEDS: amLODIPine BESYLATE 10 MG TABLET (FP) PO SCH (10:46)
[2021-06-07] MEDS: THIAMINE HCL 100 MG TABLET (FP) PO SCH (21:50)
[2021-06-07] MEDS: LIDOCAINE PATCH REMOVAL MC SCH (21:50)
[2021-06-08] MEDS: ACETAMINOPHEN 325 MG TABLET (FP) PO PRN ×2 (06:44→17:04)
[2021-06-08] MEDS: guaiFENesin 200 MG/10 ML 10 ML UNIT-DOSE CUPS PO PRN (06:45)
[2021-06-08] MEDS: LIDOCAINE 5% TOPICAL PATCH TP SCH (10:20)
[2021-06-08] MEDS: amLODIPine BESYLATE 10 MG TABLET (FP) PO SCH (10:21)
[2021-06-08] MEDS: FAMOTIDINE 20 MG TABLET PO SCH ×2 (10:21→22:55)
[2021-06-08] MEDS: PANTOPRAZOLE 20 MG TABLET PO SCH (10:21)
[2021-06-08] MEDS: PRENATAL VITAMINS W/ FOLIC ACID TABLET (FP) PO SCH (10:21)
[2021-06-08] MEDS: NAPROXEN 500 MG TABLET PO SCH (10:24)
[2021-06-08] MEDS: MAG HYDROX/AL HYDROX/SIMETH 30 ML UNIT-DOSE CUP PO PRN (14:48)
[2021-06-08] MEDS: LIDOCAINE PATCH REMOVAL MC SCH (22:45)
[2021-06-08] MEDS: THIAMINE HCL 100 MG TABLET (FP) PO SCH (22:55)
[2021-06-09] MEDS: guaiFENesin 200 MG/10 ML 10 ML UNIT-DOSE CUPS PO PRN (06:59)
[2021-06-09] MEDS: ACETAMINOPHEN 325 MG TABLET (FP) PO PRN (07:00)
[2021-06-09] MEDS ORDERED: ARTIFICIAL TEARS (POLYVINYL ALCOHOL) OPTH DROPS OU PRN (10:33)
[2021-06-09] MEDS ORDERED: LACTULOSE 20 GM/30 ML UDC (FOR ORAL USE ONLY) PO ONE (10:36)
[2021-06-09] MEDS: PANTOPRAZOLE 20 MG TABLET PO SCH (10:42)
[2021-06-09] MEDS: FAMOTIDINE 20 MG TABLET PO SCH ×2 (10:42→21:28)
[2021-06-09] MEDS: PRENATAL VITAMINS W/ FOLIC ACID TABLET (FP) PO SCH (10:42)
[2021-06-09] MEDS: amLODIPine BESYLATE 10 MG TABLET (FP) PO SCH (10:42)
[2021-06-09] MEDS: NAPROXEN 500 MG TABLET PO SCH (10:43)
[2021-06-09] MEDS: MENTHOL/PHENOL 1 EACH UD MM PRN (10:47)
[2021-06-09] MEDS: LORATADINE 10 MG TABLET PO SCH (10:47)
[2021-06-09] MEDS: MAGNESIUM HYDROX 2400MG/30ML ORAL SUSPENSION 30 ML CUP PO PRN (10:50)
[2021-06-09] MEDS: LIDOCAINE 5% TOPICAL PATCH TP SCH (10:51)
[2021-06-09] MEDS ORDERED: METHOCARBAMOL 500 MG TABLET PO SCH (14:00)
[2021-06-09] MEDS: THIAMINE HCL 100 MG TABLET (FP) PO SCH (21:28)
[2021-06-09] MEDS: LIDOCAINE PATCH REMOVAL MC SCH (21:28)
[2021-06-09] MEDS: METHYL SALICYLATE/MENTHOL OINT 30 GM TUBE TP SCH (21:28)
[2021-06-10] MEDS: ACETAMINOPHEN 325 MG TABLET (FP) PO PRN ×3 (06:19→21:20)
[2021-06-10] MEDS: MAGNESIUM HYDROX 2400MG/30ML ORAL SUSPENSION 30 ML CUP PO PRN (06:19)
[2021-06-10] MEDS: guaiFENesin 200 MG/10 ML 10 ML UNIT-DOSE CUPS PO PRN ×2 (06:20→21:20)
[2021-06-10] MEDS: METHYL SALICYLATE/MENTHOL OINT 30 GM TUBE TP SCH ×2 (10:12→21:21)
[2021-06-10] MEDS: LORATADINE 10 MG TABLET PO SCH (10:13)
[2021-06-10] MEDS: amLODIPine BESYLATE 10 MG TABLET (FP) PO SCH (10:13)
[2021-06-10] MEDS: FAMOTIDINE 20 MG TABLET PO SCH ×2 (10:13→21:21)
[2021-06-10] MEDS: PANTOPRAZOLE 20 MG TABLET PO SCH (10:13)
[2021-06-10] MEDS: PRENATAL VITAMINS W/ FOLIC ACID TABLET (FP) PO SCH (10:14)
[2021-06-10] MEDS: SODIUM CHLORIDE NASAL SPRAY 44 ML BOTTLE NS PRN (10:15)
[2021-06-10] MEDS: NAPROXEN 500 MG TABLET PO SCH (10:16)
[2021-06-10] MEDS: LIDOCAINE 5% TOPICAL PATCH TP SCH (10:17)
[2021-06-10] MEDS: MAG HYDROX/AL HYDROX/SIMETH 30 ML UNIT-DOSE CUP PO PRN (13:44)
[2021-06-10] MEDS: THIAMINE HCL 100 MG TABLET (FP) PO SCH (21:21)
[2021-06-10] MEDS: LIDOCAINE PATCH REMOVAL MC SCH (21:21)
[2021-06-11] MEDS: guaiFENesin 200 MG/10 ML 10 ML UNIT-DOSE CUPS PO PRN ×2 (07:11→17:06)
[2021-06-11] MEDS: ACETAMINOPHEN 325 MG TABLET (FP) PO PRN ×2 (07:11→17:07)
[2021-06-11] MEDS: MENTHOL/PHENOL 1 EACH UD MM PRN ×2 (07:11→21:17)
[2021-06-11] MEDS: LIDOCAINE 5% TOPICAL PATCH TP SCH (10:52)
[2021-06-11] MEDS: METHYL SALICYLATE/MENTHOL OINT 30 GM TUBE TP SCH ×2 (10:54→21:16)
[2021-06-11] MEDS: NAPROXEN 500 MG TABLET PO SCH ×2 (10:54→21:14)
[2021-06-11] MEDS: LORATADINE 10 MG TABLET PO SCH (10:54)
[2021-06-11] MEDS: amLODIPine BESYLATE 10 MG TABLET (FP) PO SCH (10:54)
[2021-06-11] MEDS: PANTOPRAZOLE 20 MG TABLET PO SCH (10:54)
[2021-06-11] MEDS: PRENATAL VITAMINS W/ FOLIC ACID TABLET (FP) PO SCH (10:55)
[2021-06-11] MEDS: FAMOTIDINE 20 MG TABLET PO SCH ×2 (10:55→21:17)
[2021-06-11] MEDS: GABAPENTIN 100 MG CAPSULE PO SCH ×2 (14:15→21:15)
[2021-06-11] MEDS: HYDROCORTISONE 0.5% TOPICAL CREAM 30 GM TUBE TP PRN (14:18)
[2021-06-11] MEDS: SODIUM CHLORIDE NASAL SPRAY 44 ML BOTTLE NS PRN (14:20)
[2021-06-11] MEDS: LACTULOSE 20 GM/30 ML UDC (FOR ORAL USE ONLY) PO PRN (17:06)
[2021-06-11] MEDS: LIDOCAINE PATCH REMOVAL MC SCH (21:16)
[2021-06-11] MEDS: HYDROCORTISONE 2.5% TOPICAL CREAM 30 GM TUBE RC SCH (21:16)
[2021-06-11] MEDS: THIAMINE HCL 100 MG TABLET (FP) PO SCH (21:17)
[2021-06-12] MEDS: GABAPENTIN 100 MG CAPSULE PO SCH ×3 (06:46→21:48)
[2021-06-12] MEDS: ACETAMINOPHEN 325 MG TABLET (FP) PO PRN (06:48)
[2021-06-12] MEDS: guaiFENesin 200 MG/10 ML 10 ML UNIT-DOSE CUPS PO PRN ×2 (06:48→21:49)
[2021-06-12] MEDS: MENTHOL/PHENOL 1 EACH UD MM PRN (06:48)
[2021-06-12] MEDS: amLODIPine BESYLATE 10 MG TABLET (FP) PO SCH (09:59)
[2021-06-12] MEDS: PRENATAL VITAMINS W/ FOLIC ACID TABLET (FP) PO SCH (09:59)
[2021-06-12] MEDS: PANTOPRAZOLE 20 MG TABLET PO SCH (09:59)
[2021-06-12] MEDS: NAPROXEN 500 MG TABLET PO SCH ×2 (09:59→21:48)
[2021-06-12] MEDS: LIDOCAINE 5% TOPICAL PATCH TP SCH (10:00)
[2021-06-12] MEDS: LORATADINE 10 MG TABLET PO SCH (10:00)
[2021-06-12] MEDS: FAMOTIDINE 20 MG TABLET PO SCH ×2 (10:00→21:48)
[2021-06-12] MEDS: METHYL SALICYLATE/MENTHOL OINT 30 GM TUBE TP SCH ×2 (10:00→21:51)
[2021-06-12] MEDS: SODIUM CHLORIDE NASAL SPRAY 44 ML BOTTLE NS PRN (10:01)
[2021-06-12] MEDS: HYDROCORTISONE 0.5% TOPICAL CREAM 30 GM TUBE TP PRN (10:01)
[2021-06-12] MEDS: LACTULOSE 20 GM/30 ML UDC (FOR ORAL USE ONLY) PO PRN (15:02)
[2021-06-12] MEDS: THIAMINE HCL 100 MG TABLET (FP) PO SCH (21:49)
[2021-06-12] MEDS: LIDOCAINE PATCH REMOVAL MC SCH (21:50)
[2021-06-12] MEDS: HYDROCORTISONE 2.5% TOPICAL CREAM 30 GM TUBE RC SCH (21:51)
[2021-06-13] MEDS: MENTHOL/PHENOL 1 EACH UD MM PRN (06:28)
[2021-06-13] MEDS: GABAPENTIN 100 MG CAPSULE PO SCH ×3 (06:28→21:50)
[2021-06-13] MEDS: guaiFENesin 200 MG/10 ML 10 ML UNIT-DOSE CUPS PO PRN ×2 (06:28→15:37)
[2021-06-13] MEDS: ACETAMINOPHEN 325 MG TABLET (FP) PO PRN ×2 (06:29→15:37)
[2021-06-13] MEDS: LIDOCAINE 5% TOPICAL PATCH TP SCH (10:13)
[2021-06-13] MEDS: NAPROXEN 500 MG TABLET PO SCH ×2 (10:14→21:50)
[2021-06-13] MEDS: PRENATAL VITAMINS W/ FOLIC ACID TABLET (FP) PO SCH (10:14)
[2021-06-13] MEDS: LORATADINE 10 MG TABLET PO SCH (10:14)
[2021-06-13] MEDS: amLODIPine BESYLATE 10 MG TABLET (FP) PO SCH (10:14)
[2021-06-13] MEDS: FAMOTIDINE 20 MG TABLET PO SCH ×2 (10:14→21:50)
[2021-06-13] MEDS: METHYL SALICYLATE/MENTHOL OINT 30 GM TUBE TP SCH ×2 (10:15→21:50)
[2021-06-13] MEDS: SODIUM CHLORIDE NASAL SPRAY 44 ML BOTTLE NS PRN (10:15)
[2021-06-13] MEDS: PANTOPRAZOLE 20 MG TABLET PO SCH (10:15)
[2021-06-13] MEDS: THIAMINE HCL 100 MG TABLET (FP) PO SCH (21:50)
[2021-06-13] MEDS: LIDOCAINE PATCH REMOVAL MC SCH (21:50)
[2021-06-13] MEDS: HYDROCORTISONE 2.5% TOPICAL CREAM 30 GM TUBE RC SCH (21:50)
[2021-06-14] MEDS: GABAPENTIN 100 MG CAPSULE PO SCH ×3 (06:06→21:22)
[2021-06-14] MEDS: MENTHOL/PHENOL 1 EACH UD MM PRN (06:07)
[2021-06-14] MEDS: ACETAMINOPHEN 325 MG TABLET (FP) PO PRN ×2 (06:07→13:33)
[2021-06-14] MEDS: guaiFENesin 200 MG/10 ML 10 ML UNIT-DOSE CUPS PO PRN ×2 (06:07→21:23)
[2021-06-14] MEDS: METHYL SALICYLATE/MENTHOL OINT 30 GM TUBE TP SCH ×2 (10:18→21:23)
[2021-06-14] MEDS: LIDOCAINE 5% TOPICAL PATCH TP SCH (10:19)
[2021-06-14] MEDS: LORATADINE 10 MG TABLET PO SCH (10:19)
[2021-06-14] MEDS: NAPROXEN 500 MG TABLET PO SCH ×2 (10:20→21:22)
[2021-06-14] MEDS: PRENATAL VITAMINS W/ FOLIC ACID TABLET (FP) PO SCH (10:21)
[2021-06-14] MEDS: FAMOTIDINE 20 MG TABLET PO SCH ×2 (10:21→21:23)
[2021-06-14] MEDS: amLODIPine BESYLATE 10 MG TABLET (FP) PO SCH (10:21)
[2021-06-14] MEDS: PANTOPRAZOLE 20 MG TABLET PO SCH (10:21)
[2021-06-14] MEDS: SODIUM CHLORIDE NASAL SPRAY 44 ML BOTTLE NS PRN (10:22)
[2021-06-14] MEDS: MAG HYDROX/AL HYDROX/SIMETH 30 ML UNIT-DOSE CUP PO PRN (16:05)
[2021-06-14] MEDS: MAGNESIUM HYDROX 2400MG/30ML ORAL SUSPENSION 30 ML CUP PO PRN (18:46)
[2021-06-14] MEDS: LIDOCAINE PATCH REMOVAL MC SCH (21:23)
[2021-06-14] MEDS: HYDROCORTISONE 2.5% TOPICAL CREAM 30 GM TUBE RC SCH (21:23)
[2021-06-14] MEDS: THIAMINE HCL 100 MG TABLET (FP) PO SCH (21:24)
[2021-06-15] MEDS ORDERED: PANTOPRAZOLE 20 MG TABLET PO SCH (06:00)
[2021-06-15] MEDS: GABAPENTIN 100 MG CAPSULE PO SCH ×3 (06:22→21:18)
[2021-06-15] MEDS: ACETAMINOPHEN 325 MG TABLET (FP) PO PRN ×2 (06:22→14:08)
[2021-06-15] MEDS: guaiFENesin 200 MG/10 ML 10 ML UNIT-DOSE CUPS PO PRN ×2 (06:26→14:08)
[2021-06-15] MEDS: amLODIPine BESYLATE 10 MG TABLET (FP) PO SCH (09:53)
[2021-06-15] MEDS: LIDOCAINE 5% TOPICAL PATCH TP SCH (09:53)
[2021-06-15] MEDS: NAPROXEN 500 MG TABLET PO SCH ×2 (09:54→21:16)
[2021-06-15] MEDS: LORATADINE 10 MG TABLET PO SCH (09:54)
[2021-06-15] MEDS: METHYL SALICYLATE/MENTHOL OINT 30 GM TUBE TP SCH ×2 (09:54→21:16)
[2021-06-15] MEDS: PRENATAL VITAMINS W/ FOLIC ACID TABLET (FP) PO SCH (09:54)
[2021-06-15] MEDS: FAMOTIDINE 20 MG TABLET PO SCH ×2 (09:55→18:50)
[2021-06-15] MEDS: HYDROCORTISONE 0.5% TOPICAL CREAM 30 GM TUBE TP PRN (09:55)
[2021-06-15] MEDS: SODIUM CHLORIDE NASAL SPRAY 44 ML BOTTLE NS PRN (09:57)
[2021-06-15] MEDS ORDERED: FAMOTIDINE 20 MG TABLET PO SCH ×2 (14:45→14:55)
[2021-06-15] MEDS: MAG HYDROX/AL HYDROX/SIMETH 30 ML UNIT-DOSE CUP PO PRN (14:48)
[2021-06-15] MEDS: HYDROCORTISONE 2.5% TOPICAL CREAM 30 GM TUBE RC PRN (21:18)
[2021-06-15] MEDS: THIAMINE HCL 100 MG TABLET (FP) PO SCH (21:19)
[2021-06-15] MEDS: MAGNESIUM HYDROX 2400MG/30ML ORAL SUSPENSION 30 ML CUP PO PRN (21:19)
[2021-06-15] MEDS: LIDOCAINE PATCH REMOVAL MC SCH (21:19)
[2021-06-16] MEDS: GABAPENTIN 100 MG CAPSULE PO SCH ×3 (06:48→21:20)
[2021-06-16] MEDS: FAMOTIDINE 20 MG TABLET PO SCH ×2 (06:48→21:18)
[2021-06-16] MEDS: MAGNESIUM HYDROX 2400MG/30ML ORAL SUSPENSION 30 ML CUP PO PRN ×2 (06:50→21:21)
[2021-06-16] MEDS: guaiFENesin 200 MG/10 ML 10 ML UNIT-DOSE CUPS PO PRN ×2 (06:50→13:27)
[2021-06-16] MEDS: ACETAMINOPHEN 325 MG TABLET (FP) PO PRN ×2 (06:52→13:27)
[2021-06-16] MEDS: LORATADINE 10 MG TABLET PO SCH (10:07)
[2021-06-16] MEDS: LIDOCAINE 5% TOPICAL PATCH TP SCH (10:07)
[2021-06-16] MEDS: METHYL SALICYLATE/MENTHOL OINT 30 GM TUBE TP SCH ×2 (10:07→21:22)
[2021-06-16] MEDS: NAPROXEN 500 MG TABLET PO SCH ×2 (10:08→21:20)
[2021-06-16] MEDS: amLODIPine BESYLATE 10 MG TABLET (FP) PO SCH (10:08)
[2021-06-16] MEDS: PRENATAL VITAMINS W/ FOLIC ACID TABLET (FP) PO SCH (10:08)
[2021-06-16] MEDS: SODIUM CHLORIDE NASAL SPRAY 44 ML BOTTLE NS PRN (10:09)
[2021-06-16] MEDS: MAG HYDROX/AL HYDROX/SIMETH 30 ML UNIT-DOSE CUP PO PRN (12:13)
[2021-06-16] MEDS: HYDROCORTISONE 2.5% TOPICAL CREAM 30 GM TUBE RC PRN (13:30)
[2021-06-16] MEDS: LIDOCAINE PATCH REMOVAL MC SCH (21:21)
[2021-06-16] MEDS: THIAMINE HCL 100 MG TABLET (FP) PO SCH (21:21)
[2021-06-17] MEDS: FAMOTIDINE 20 MG TABLET PO SCH ×2 (06:24→21:05)
[2021-06-17] MEDS: GABAPENTIN 100 MG CAPSULE PO SCH ×3 (06:24→21:25)
[2021-06-17] MEDS: ACETAMINOPHEN 325 MG TABLET (FP) PO PRN ×2 (06:25→14:13)
[2021-06-17] MEDS: guaiFENesin 200 MG/10 ML 10 ML UNIT-DOSE CUPS PO PRN ×2 (06:25→14:13)
[2021-06-17] MEDS: METHYL SALICYLATE/MENTHOL OINT 30 GM TUBE TP SCH ×2 (10:09→21:27)
[2021-06-17] MEDS: amLODIPine BESYLATE 10 MG TABLET (FP) PO SCH (10:09)
[2021-06-17] MEDS: LORATADINE 10 MG TABLET PO SCH (10:09)
[2021-06-17] MEDS: LIDOCAINE 5% TOPICAL PATCH TP SCH (10:09)
[2021-06-17] MEDS: NAPROXEN 500 MG TABLET PO SCH ×2 (10:09→21:25)
[2021-06-17] MEDS: SODIUM CHLORIDE NASAL SPRAY 44 ML BOTTLE NS PRN (10:10)
[2021-06-17] MEDS: PRENATAL VITAMINS W/ FOLIC ACID TABLET (FP) PO SCH (10:10)
[2021-06-17] MEDS: HYDROCORTISONE 2.5% TOPICAL CREAM 30 GM TUBE RC PRN (10:10)
[2021-06-17] MEDS: LIDOCAINE PATCH REMOVAL MC SCH (21:26)
[2021-06-17] MEDS: THIAMINE HCL 100 MG TABLET (FP) PO SCH (21:26)
[2021-06-17] MEDS: MAGNESIUM HYDROX 2400MG/30ML ORAL SUSPENSION 30 ML CUP PO PRN (21:26)
[2021-06-18] MEDS: GABAPENTIN 100 MG CAPSULE PO SCH ×3 (05:55→21:09)
[2021-06-18] MEDS: FAMOTIDINE 20 MG TABLET PO SCH ×2 (05:55→19:09)
[2021-06-18] MEDS: guaiFENesin 200 MG/10 ML 10 ML UNIT-DOSE CUPS PO PRN (05:56)
[2021-06-18] MEDS: MENTHOL/PHENOL 1 EACH UD MM PRN (05:56)
[2021-06-18] MEDS: ACETAMINOPHEN 325 MG TABLET (FP) PO PRN ×2 (05:56→14:00)
[2021-06-18] MEDS: amLODIPine BESYLATE 10 MG TABLET (FP) PO SCH (10:33)
[2021-06-18] MEDS: LORATADINE 10 MG TABLET PO SCH (10:33)
[2021-06-18] MEDS: NAPROXEN 500 MG TABLET PO SCH ×2 (10:33→21:09)
[2021-06-18] MEDS: METHYL SALICYLATE/MENTHOL OINT 30 GM TUBE TP SCH ×2 (10:33→21:08)
[2021-06-18] MEDS: PRENATAL VITAMINS W/ FOLIC ACID TABLET (FP) PO SCH (10:34)
[2021-06-18] MEDS: LIDOCAINE 5% TOPICAL PATCH TP SCH (10:34)
[2021-06-18] MEDS: MAG HYDROX/AL HYDROX/SIMETH 30 ML UNIT-DOSE CUP PO PRN (15:39)
[2021-06-18] MEDS: LIDOCAINE PATCH REMOVAL MC SCH (21:08)
[2021-06-18] MEDS: THIAMINE HCL 100 MG TABLET (FP) PO SCH (21:10)
[2021-06-19] MEDS: FAMOTIDINE 20 MG TABLET PO SCH ×2 (06:34→18:40)
[2021-06-19] MEDS: GABAPENTIN 100 MG CAPSULE PO SCH ×3 (06:34→21:13)
[2021-06-19] MEDS: guaiFENesin 200 MG/10 ML 10 ML UNIT-DOSE CUPS PO PRN (06:34)
[2021-06-19] MEDS: ACETAMINOPHEN 325 MG TABLET (FP) PO PRN ×2 (06:34→14:08)
[2021-06-19] MEDS: amLODIPine BESYLATE 10 MG TABLET (FP) PO SCH (09:25)
[2021-06-19] MEDS: METHYL SALICYLATE/MENTHOL OINT 30 GM TUBE TP SCH ×2 (09:25→21:14)
[2021-06-19] MEDS: LORATADINE 10 MG TABLET PO SCH (09:25)
[2021-06-19] MEDS: NAPROXEN 500 MG TABLET PO SCH ×2 (09:25→21:13)
[2021-06-19] MEDS: LIDOCAINE 5% TOPICAL PATCH TP SCH (09:25)
[2021-06-19] MEDS: HYDROCORTISONE 2.5% TOPICAL CREAM 30 GM TUBE RC PRN ×2 (09:26→21:14)
[2021-06-19] MEDS: PRENATAL VITAMINS W/ FOLIC ACID TABLET (FP) PO SCH (09:26)
[2021-06-19] MEDS: MAG HYDROX/AL HYDROX/SIMETH 30 ML UNIT-DOSE CUP PO PRN (15:58)
[2021-06-19] MEDS: MAGNESIUM HYDROX 2400MG/30ML ORAL SUSPENSION 30 ML CUP PO PRN (21:13)
[2021-06-19] MEDS: LIDOCAINE PATCH REMOVAL MC SCH (21:15)
[2021-06-19] MEDS: THIAMINE HCL 100 MG TABLET (FP) PO SCH (21:15)
[2021-06-20] MEDS: GABAPENTIN 100 MG CAPSULE PO SCH ×3 (06:59→21:29)
[2021-06-20] MEDS: FAMOTIDINE 20 MG TABLET PO SCH ×2 (06:59→17:03)
[2021-06-20] MEDS: ACETAMINOPHEN 325 MG TABLET (FP) PO PRN ×2 (07:00→13:32)
[2021-06-20] MEDS: guaiFENesin 200 MG/10 ML 10 ML UNIT-DOSE CUPS PO PRN (07:02)
[2021-06-20] MEDS: NAPROXEN 500 MG TABLET PO SCH ×2 (10:04→21:29)
[2021-06-20] MEDS: LIDOCAINE 5% TOPICAL PATCH TP SCH (10:04)
[2021-06-20] MEDS: PRENATAL VITAMINS W/ FOLIC ACID TABLET (FP) PO SCH (10:04)
[2021-06-20] MEDS: LORATADINE 10 MG TABLET PO SCH (10:04)
[2021-06-20] MEDS: amLODIPine BESYLATE 10 MG TABLET (FP) PO SCH (10:04)
[2021-06-20] MEDS: METHYL SALICYLATE/MENTHOL OINT 30 GM TUBE TP SCH ×2 (10:04→21:30)
[2021-06-20] MEDS: SODIUM CHLORIDE NASAL SPRAY 44 ML BOTTLE NS PRN (10:05)
[2021-06-20] MEDS: HYDROCORTISONE 2.5% TOPICAL CREAM 30 GM TUBE RC PRN (10:05)
[2021-06-20] MEDS: MAG HYDROX/AL HYDROX/SIMETH 30 ML UNIT-DOSE CUP PO PRN (16:37)
[2021-06-20] MEDS: MAGNESIUM HYDROX 2400MG/30ML ORAL SUSPENSION 30 ML CUP PO PRN (21:29)
[2021-06-20] MEDS: THIAMINE HCL 100 MG TABLET (FP) PO SCH (21:30)
[2021-06-20] MEDS: LIDOCAINE PATCH REMOVAL MC SCH (21:30)
[2021-06-21] MEDS: MENTHOL/PHENOL 1 EACH UD MM PRN ×2 (07:02→14:03)
[2021-06-21] MEDS: guaiFENesin 200 MG/10 ML 10 ML UNIT-DOSE CUPS PO PRN ×2 (07:02→14:02)
[2021-06-21] MEDS: GABAPENTIN 100 MG CAPSULE PO SCH ×3 (07:02→21:10)
[2021-06-21] MEDS: ACETAMINOPHEN 325 MG TABLET (FP) PO PRN ×2 (07:02→14:02)
[2021-06-21] MEDS: FAMOTIDINE 20 MG TABLET PO SCH ×2 (07:02→18:53)
[2021-06-21] MEDS: PRENATAL VITAMINS W/ FOLIC ACID TABLET (FP) PO SCH (09:52)
[2021-06-21] MEDS: amLODIPine BESYLATE 10 MG TABLET (FP) PO SCH (09:53)
[2021-06-21] MEDS: NAPROXEN 500 MG TABLET PO SCH ×2 (09:53→21:10)
[2021-06-21] MEDS: METHYL SALICYLATE/MENTHOL OINT 30 GM TUBE TP SCH ×2 (09:53→21:11)
[2021-06-21] MEDS: LORATADINE 10 MG TABLET PO SCH (09:53)
[2021-06-21] MEDS: LIDOCAINE 5% TOPICAL PATCH TP SCH (09:54)
[2021-06-21] MEDS: SODIUM CHLORIDE NASAL SPRAY 44 ML BOTTLE NS PRN (09:54)
[2021-06-21] MEDS: HYDROCORTISONE 2.5% TOPICAL CREAM 30 GM TUBE RC PRN (09:55)
[2021-06-21] MEDS: MAG HYDROX/AL HYDROX/SIMETH 30 ML UNIT-DOSE CUP PO PRN (18:53)
[2021-06-21] MEDS: THIAMINE HCL 100 MG TABLET (FP) PO SCH (21:10)
[2021-06-21] MEDS: LIDOCAINE PATCH REMOVAL MC SCH (21:12)
[2021-06-22] MEDS: GABAPENTIN 100 MG CAPSULE PO SCH ×3 (06:26→21:23)
[2021-06-22] MEDS: guaiFENesin 200 MG/10 ML 10 ML UNIT-DOSE CUPS PO PRN (06:26)
[2021-06-22] MEDS: MENTHOL/PHENOL 1 EACH UD MM PRN (06:26)
[2021-06-22] MEDS: FAMOTIDINE 20 MG TABLET PO SCH ×2 (06:26→19:58)
[2021-06-22] MEDS: ACETAMINOPHEN 325 MG TABLET (FP) PO PRN ×2 (06:26→13:28)
[2021-06-22 07:02] VITALS: TEMP 98.6
[2021-06-22] MEDS: LIDOCAINE 5% TOPICAL PATCH TP SCH (10:10)
[2021-06-22] MEDS: PRENATAL VITAMINS W/ FOLIC ACID TABLET (FP) PO SCH (10:10)
[2021-06-22] MEDS: NAPROXEN 500 MG TABLET PO SCH ×2 (10:10→21:23)
[2021-06-22] MEDS: LORATADINE 10 MG TABLET PO SCH (10:10)
[2021-06-22] MEDS: amLODIPine BESYLATE 10 MG TABLET (FP) PO SCH (10:10)
[2021-06-22] MEDS: METHYL SALICYLATE/MENTHOL OINT 30 GM TUBE TP SCH ×2 (10:11→21:24)
[2021-06-22] MEDS: SODIUM CHLORIDE NASAL SPRAY 44 ML BOTTLE NS PRN (10:11)
[2021-06-22] MEDS: HYDROCORTISONE 2.5% TOPICAL CREAM 30 GM TUBE RC PRN ×2 (10:13→21:25)
[2021-06-22] MEDS: MAG HYDROX/AL HYDROX/SIMETH 30 ML UNIT-DOSE CUP PO PRN (13:28)
[2021-06-22] MEDS: MAGNESIUM HYDROX 2400MG/30ML ORAL SUSPENSION 30 ML CUP PO PRN (21:23)
[2021-06-22] MEDS: LIDOCAINE PATCH REMOVAL MC SCH (21:24)
[2021-06-22] MEDS: THIAMINE HCL 100 MG TABLET (FP) PO SCH (21:24)
[2021-06-23 06:44] VITALS: BP 131/76; PULSE 89
[2021-06-23] MEDS: GABAPENTIN 100 MG CAPSULE PO SCH (06:45)
[2021-06-23] MEDS: FAMOTIDINE 20 MG TABLET PO SCH (06:45)
[2021-06-23] MEDS: guaiFENesin 200 MG/10 ML 10 ML UNIT-DOSE CUPS PO PRN (06:47)
[2021-06-23] MEDS: ACETAMINOPHEN 325 MG TABLET (FP) PO PRN (06:47)
[2021-06-23] MEDS: MENTHOL/PHENOL 1 EACH UD MM PRN (06:49)
[2021-06-23] MEDS: PRENATAL VITAMINS W/ FOLIC ACID TABLET (FP) PO SCH (09:20)
[2021-06-23] MEDS: NAPROXEN 500 MG TABLET PO SCH (09:20)
[2021-06-23] MEDS: LORATADINE 10 MG TABLET PO SCH (09:21)
[2021-06-23] MEDS: amLODIPine BESYLATE 10 MG TABLET (FP) PO SCH (09:21)
[2021-06-23] MEDS: METHYL SALICYLATE/MENTHOL OINT 30 GM TUBE TP SCH (09:22)
[2021-06-23] MEDS: LIDOCAINE 5% TOPICAL PATCH TP SCH (09:22)
== END 2021-06-23 09:49 | disposition home or self-care (01) | DRG 772 ==
LOC: YASAS 09:05 → Y3W 09:07
PROVIDERS: ADMIT Allergy & Immunology; ATTEND Allergy & Immunology
PROC: HZ42ZZZ Group Counseling for Substance Abuse Treatment, Cognitive-Behavioral (ICD-10-PCS; principal; 2021-06-06)
DX: F10.20 Alcohol dependence, uncomplicated (principal); F17.210 Nicotine dependence, cigarettes, uncomplicated; K21.9 Gastro-esophageal reflux disease without esophagitis; K59.00 Constipation, unspecified; I10 Essential (primary) hypertension; R12 Heartburn; Z88.0 Allergy status to penicillin; Z88.7 Allergy status to serum and vaccine; Z87.19 Personal history of other diseases of the digestive system
CPT/HCPCS: 83036; C9803; U0003; U0005

== ENCOUNTER 2021-07-22 11:58 | Inpatient (IN) | payer OTHER ==
[2021-07-22] MEDS ORDERED: MAGNESIUM CITRATE 300 ML BOTTLE PO PRN (14:03)
[2021-07-22] MEDS ORDERED: LOPERAMIDE HCL 2 MG CAPSULE PO PRN (14:03)
[2021-07-22] MEDS ORDERED: ACETAMINOPHEN 325 MG TABLET (FP) PO PRN (14:03)
[2021-07-22] MEDS ORDERED: IBUPROFEN 400 MG TABLET (FP) PO PRN (14:03)
[2021-07-22] MEDS ORDERED: NICOTINE 10 MG CARTRIDGE (INHALER) IH PRN (14:03)
[2021-07-22] MEDS ORDERED: chlordiazePOXIDE HCL 25 MG CAPSULE PO PRN (14:03)
[2021-07-22] MEDS ORDERED: BISMUTH SUBSALICYLATE 524 MG/30 ML PO PRN (14:03)
[2021-07-22 15:10] VITALS: BMI 31.1
[2021-07-22] MEDS: chlordiazePOXIDE HCL 25 MG CAPSULE PO SCH ×2 (17:55→22:42)
[2021-07-22] MEDS: PANTOPRAZOLE 20 MG TABLET PO SCH (17:55)
[2021-07-22] MEDS: hydrOXYzine PAMOATE 25 MG CAPSULE (FP) PO SCH ×2 (18:00→22:42)
[2021-07-22] MEDS: THIAMINE HCL 100 MG TABLET (FP) PO SCH (22:42)
[2021-07-22] MEDS: MELATONIN 5 MG TABLETS PO SCH (22:42)
[2021-07-22] MEDS: HYDROCORTISONE 2.5% TOPICAL CREAM 30 GM TUBE PR SCH (22:42)
[2021-07-23] MEDS: MELATONIN 5 MG TABLETS PO SCH (01:17)
[2021-07-23] MEDS: chlordiazePOXIDE HCL 25 MG CAPSULE PO SCH ×4 (05:35→23:16)
[2021-07-23] MEDS: hydrOXYzine PAMOATE 25 MG CAPSULE (FP) PO SCH ×5 (05:35→23:18)
[2021-07-23] MEDS: HYDROCORTISONE 2.5% TOPICAL CREAM 30 GM TUBE PR SCH (10:58)
[2021-07-23] MEDS: PRENATAL VITAMINS W/ FOLIC ACID TABLET (FP) PO SCH (10:59)
[2021-07-23] MEDS: PANTOPRAZOLE 20 MG TABLET PO SCH (10:59)
[2021-07-23] MEDS: METHOCARBAMOL 500 MG TABLET PO PRN (11:00)
[2021-07-23] MEDS: MAG HYDROX/AL HYDROX/SIMETH 30 ML UNIT-DOSE CUP PO PRN (11:02)
[2021-07-23] MEDS: ONDANSETRON *ODT* 4 MG TABLET SL PRN (13:29)
[2021-07-23] MEDS: MAGNESIUM HYDROX 2400MG/30ML ORAL SUSPENSION 30 ML CUP PO PRN (16:56)
[2021-07-23] MEDS: THIAMINE HCL 100 MG TABLET (FP) PO SCH (23:18)
[2021-07-24] MEDS: chlordiazePOXIDE HCL 25 MG CAPSULE PO SCH ×4 (05:53→23:29)
[2021-07-24] MEDS: hydrOXYzine PAMOATE 25 MG CAPSULE (FP) PO SCH ×5 (05:54→23:29)
[2021-07-24] MEDS: PRENATAL VITAMINS W/ FOLIC ACID TABLET (FP) PO SCH (10:41)
[2021-07-24] MEDS: PANTOPRAZOLE 20 MG TABLET PO SCH (10:41)
[2021-07-24] MEDS: HYDROCORTISONE 2.5% TOPICAL CREAM 30 GM TUBE PR SCH (10:41)
[2021-07-24] MEDS: MAG HYDROX/AL HYDROX/SIMETH 30 ML UNIT-DOSE CUP PO PRN (10:44)
[2021-07-24] MEDS: ACETAMINOPHEN 325 MG TABLET (FP) PO PRN ×2 (10:44→16:58)
[2021-07-24] MEDS: METHOCARBAMOL 500 MG TABLET PO PRN (10:44)
[2021-07-24] MEDS: ARTIFICIAL TEARS (POLYVINYL ALCOHOL) OPTH DROPS OU SCH ×2 (11:39→23:28)
[2021-07-24] MEDS: guaiFENesin 200 MG/10 ML 10 ML UNIT-DOSE CUPS PO PRN ×2 (11:39→16:58)
[2021-07-24] MEDS: amLODIPine BESYLATE 5 MG TABLET (FP) PO SCH (11:39)
[2021-07-24] MEDS: MENTHOL/PHENOL 1 EACH UD MM PRN (11:40)
[2021-07-24] MEDS: FLUTICASONE PROP 0.05% 16 GM NASAL SPRAY NS SCH ×2 (13:14→23:28)
[2021-07-24] MEDS: MINERAL OIL/PETROLAT/WATER TOPICAL CREAM 113 GM JAR TP SCH ×2 (13:15→23:28)
[2021-07-24] MEDS: METHYL SALICYLATE/MENTHOL OINT 30 GM TUBE TP SCH ×2 (13:16→23:28)
[2021-07-24] MEDS: NAPROXEN 375 MG TABLET PO PRN (13:16)
[2021-07-24] MEDS: ONDANSETRON *ODT* 4 MG TABLET SL PRN (15:25)
[2021-07-24] MEDS: MELATONIN 5 MG TABLETS PO SCH (23:28)
[2021-07-24] MEDS: THIAMINE HCL 100 MG TABLET (FP) PO SCH (23:29)
[2021-07-25] MEDS ORDERED: chlordiazePOXIDE HCL 10 MG CAPSULE PO PRN
[2021-07-25] MEDS: chlordiazePOXIDE HCL 10 MG CAPSULE PO SCH ×5 (06:42→22:31)
[2021-07-25] MEDS: hydrOXYzine PAMOATE 25 MG CAPSULE (FP) PO SCH ×5 (06:42→22:31)
[2021-07-25] MEDS: guaiFENesin 200 MG/10 ML 10 ML UNIT-DOSE CUPS PO PRN (07:01)
[2021-07-25] MEDS: ACETAMINOPHEN 325 MG TABLET (FP) PO PRN ×2 (07:01→15:37)
[2021-07-25] MEDS: MAGNESIUM HYDROX 2400MG/30ML ORAL SUSPENSION 30 ML CUP PO PRN (07:02)
[2021-07-25] MEDS: PRENATAL VITAMINS W/ FOLIC ACID TABLET (FP) PO SCH (10:29)
[2021-07-25] MEDS: ARTIFICIAL TEARS (POLYVINYL ALCOHOL) OPTH DROPS OU SCH ×2 (10:29→22:30)
[2021-07-25] MEDS: FLUTICASONE PROP 0.05% 16 GM NASAL SPRAY NS SCH ×2 (10:29→22:31)
[2021-07-25] MEDS: HYDROCORTISONE 2.5% TOPICAL CREAM 30 GM TUBE PR SCH (10:30)
[2021-07-25] MEDS: amLODIPine BESYLATE 5 MG TABLET (FP) PO SCH (10:30)
[2021-07-25] MEDS: PANTOPRAZOLE 20 MG TABLET PO SCH (10:30)
[2021-07-25] MEDS: METHYL SALICYLATE/MENTHOL OINT 30 GM TUBE TP SCH ×2 (10:30→22:30)
[2021-07-25] MEDS: NAPROXEN 375 MG TABLET PO PRN (10:31)
[2021-07-25] MEDS: MINERAL OIL/PETROLAT/WATER TOPICAL CREAM 113 GM JAR TP SCH ×2 (10:32→22:30)
[2021-07-25] MEDS: MENTHOL/PHENOL 1 EACH UD MM PRN (10:32)
[2021-07-25 11:52] LABS: ALBUMIN 4.1 g/dl (3.4-5.0); BLOOD UREA NITROGEN 16.9 mg/dL (7-18); CALCIUM 8.7 mg/dL (8.5-10.1)
[2021-07-25 11:55] LABS: CREATININE 1.1 mg/dL (0.55-1.3)
[2021-07-25 11:57] LABS: BILIRUBIN,TOTAL 0.3 mg/dL (0.2-1); TOT PROT 7.6 g/dl (6.4-8.2)
[2021-07-25] MEDS: MAG HYDROX/AL HYDROX/SIMETH 30 ML UNIT-DOSE CUP PO PRN ×2 (13:04→20:41)
[2021-07-25] MEDS: ONDANSETRON *ODT* 4 MG TABLET SL PRN (15:35)
[2021-07-25] MEDS: THIAMINE HCL 100 MG TABLET (FP) PO SCH (22:31)
[2021-07-25] MEDS: MELATONIN 5 MG TABLETS PO SCH (22:31)
[2021-07-26] MEDS: chlordiazePOXIDE HCL 10 MG CAPSULE PO SCH ×2 (05:44→18:07)
[2021-07-26] MEDS: PANTOPRAZOLE 20 MG TABLET PO SCH (05:45)
[2021-07-26] MEDS: hydrOXYzine PAMOATE 25 MG CAPSULE (FP) PO SCH ×2 (07:29→10:26)
[2021-07-26] MEDS: ACETAMINOPHEN 325 MG TABLET (FP) PO PRN ×2 (07:51→18:08)
[2021-07-26] MEDS: HYDROCORTISONE 2.5% TOPICAL CREAM 30 GM TUBE PR SCH (10:23)
[2021-07-26] MEDS: METHYL SALICYLATE/MENTHOL OINT 30 GM TUBE TP SCH ×2 (10:24→22:11)
[2021-07-26] MEDS: ARTIFICIAL TEARS (POLYVINYL ALCOHOL) OPTH DROPS OU SCH ×2 (10:24→22:11)
[2021-07-26] MEDS: MINERAL OIL/PETROLAT/WATER TOPICAL CREAM 113 GM JAR TP SCH ×2 (10:25→22:11)
[2021-07-26] MEDS: FLUTICASONE PROP 0.05% 16 GM NASAL SPRAY NS SCH ×2 (10:25→22:10)
[2021-07-26] MEDS: PRENATAL VITAMINS W/ FOLIC ACID TABLET (FP) PO SCH (10:26)
[2021-07-26] MEDS: amLODIPine BESYLATE 5 MG TABLET (FP) PO SCH (10:26)
[2021-07-26] MEDS: MENTHOL/PHENOL 1 EACH UD MM PRN (10:27)
[2021-07-26] MEDS: NAPROXEN 375 MG TABLET PO PRN ×2 (10:27→22:09)
[2021-07-26] MEDS: guaiFENesin 200 MG/10 ML 10 ML UNIT-DOSE CUPS PO PRN (10:29)
[2021-07-26 13:06] LABS: BASO % 0.7 % (0-2.0); EOS % 4.7 % (0-4.5); HEMATOCRIT 38.7 % (35.4-49); LYMPH % 32.5 % (8-40); MCH 31.6 pg (25.7-33.7); MCHC 33.6 g/dl (32.0-35.9); MEAN CELL VOLUME 94.1 fl (80-96); MEAN PLT VOLUME 8.5 fl (7.5-11.1); MONO % 9.3 % (3.8-10.2); NEUT % 52.8 % (42.8-82.8); PLATELET COUNT 173 10^3/uL (134-434); RBC 4.11 M/mm3 (4.00-5.60); RDW 13.3 % (11.9-15.9); WHITE BLOOD COUNT 6.1 K/mm3 (4.0-10.0)
[2021-07-26] MEDS: MAG HYDROX/AL HYDROX/SIMETH 30 ML UNIT-DOSE CUP PO PRN ×2 (14:01→20:23)
[2021-07-26] MEDS: MELATONIN 5 MG TABLETS PO SCH (22:10)
[2021-07-26] MEDS: THIAMINE HCL 100 MG TABLET (FP) PO SCH (22:10)
[2021-07-27] MEDS ORDERED: chlordiazePOXIDE HCL 10 MG CAPSULE PO ONE (05:00)
[2021-07-27] MEDS: PANTOPRAZOLE 20 MG TABLET PO SCH (05:46)
[2021-07-27 09:28] VITALS: BP 154/82; PULSE 95; TEMP 98
[2021-07-27] MEDS ORDERED: amLODIPine BESYLATE 10 MG TABLET (FP) PO SCH (10:00)
== END 2021-07-27 09:27 | disposition home or self-care (01) | DRG 775 ==
LOC: YASAS 11:58 → Y6N 16:31
PROVIDERS: ADMIT Allergy & Immunology; ATTEND Allergy & Immunology
PROC: HZ2ZZZZ Detoxification Services for Substance Abuse Treatment (ICD-10-PCS; principal; 2021-07-22)
DX: F10.230 Alcohol dependence with withdrawal, uncomplicated (principal); F12.90 Cannabis use, unspecified, uncomplicated; F17.210 Nicotine dependence, cigarettes, uncomplicated; I10 Essential (primary) hypertension; K21.9 Gastro-esophageal reflux disease without esophagitis; K64.4 Residual hemorrhoidal skin tags; E66.9 Obesity, unspecified; Z68.31 Body mass index [BMI] 31.0-31.9, adult; Z86.11 Personal history of tuberculosis; Z88.0 Allergy status to penicillin; Z88.7 Allergy status to serum and vaccine; Z91.018 Allergy to other foods
CPT/HCPCS: 36415; 80053; 82962; 85025; 86593; 86780; 87811; C9803-CS; Q0162; U0003; U0005

== ENCOUNTER 2021-09-29 09:58 | Inpatient (IN) | payer OTHER ==
[2021-09-29] MEDS ORDERED: NICOTINE 10 MG CARTRIDGE (INHALER) IH PRN (10:25)
[2021-09-29] MEDS ORDERED: BENZOCAINE/MENTHOL (CHLORASEPTIC ) LOZENGE MM PRN (10:25)
[2021-09-29] MEDS ORDERED: ACETAMINOPHEN 325 MG TABLET (FP) PO PRN ×2 (10:25)
[2021-09-29] MEDS ORDERED: chlordiazePOXIDE HCL 25 MG CAPSULE PO PRN (10:25)
[2021-09-29] MEDS ORDERED: IBUPROFEN 600 MG TABLET (FP) PO PRN (10:25)
[2021-09-29] MEDS ORDERED: IBUPROFEN 400 MG TABLET (FP) PO PRN (10:25)
[2021-09-29] MEDS ORDERED: LOPERAMIDE HCL 2 MG CAPSULE PO PRN (10:25)
[2021-09-29] MEDS ORDERED: BISMUTH SUBSALICYLATE 524 MG/30 ML PO PRN (10:25)
[2021-09-29] MEDS ORDERED: DICYCLOMINE HCL 10 MG CAPSULE PO PRN (10:25)
[2021-09-29] MEDS ORDERED: MAGNESIUM CITRATE 300 ML BOTTLE PO PRN (10:25)
[2021-09-29] MEDS ORDERED: ONDANSETRON *ODT* 4 MG TABLET SL PRN (10:25)
[2021-09-29 11:05] VITALS: BMI 33.0
[2021-09-29] MEDS: NICOTINE 7 MG/24 HOURS TOPICAL PATCH TD SCH (11:53)
[2021-09-29] MEDS: PRENATAL VITAMINS W/ FOLIC ACID TABLET (FP) PO SCH (11:53)
[2021-09-29] MEDS: chlordiazePOXIDE HCL 25 MG CAPSULE PO SCH ×3 (12:11→23:24)
[2021-09-29] MEDS: hydrOXYzine PAMOATE 25 MG CAPSULE (FP) PO SCH ×3 (14:13→23:24)
[2021-09-29 16:04] LABS: HEMATOCRIT 37.2 % (35.4-49); HEMOGLOBIN 12.7 GM/dL (11.7-16.9); MCH 31.6 pg (25.7-33.7); MCHC 34.2 g/dl (32.0-35.9); MEAN CELL VOLUME 92.5 fl (80-96); MEAN PLT VOLUME 8.3 fl (7.5-11.1); PLATELET COUNT 232 10^3/uL (134-434); RBC 4.02 M/mm3 (4.00-5.60); RDW 13.7 % (11.9-15.9); WHITE BLOOD COUNT 5.7 K/mm3 (4.0-10.0)
[2021-09-29 16:19] LABS: ALBUMIN 3.8 g/dl (3.4-5.0); CALCIUM 8.8 mg/dL (8.5-10.1)
[2021-09-29 16:20] LABS: BLOOD UREA NITROGEN 13.5 mg/dL (7-18)
[2021-09-29 16:24] LABS: BILIRUBIN,TOTAL 0.8 mg/dL (0.2-1); TOT PROT 7.2 g/dl (6.4-8.2)
[2021-09-29] MEDS: MAG HYDROX/AL HYDROX/SIMETH 30 ML UNIT-DOSE CUP PO PRN (17:25)
[2021-09-29] MEDS: THIAMINE HCL 100 MG TABLET (FP) PO SCH (23:24)
[2021-09-29] MEDS: MELATONIN 5 MG TABLETS PO SCH (23:24)
[2021-09-30] MEDS: chlordiazePOXIDE HCL 25 MG CAPSULE PO SCH ×4 (06:24→22:39)
[2021-09-30] MEDS: hydrOXYzine PAMOATE 25 MG CAPSULE (FP) PO SCH ×5 (06:27→22:39)
[2021-09-30] MEDS ORDERED: PANTOPRAZOLE 20 MG TABLET PO SCH ×2 (07:00→10:00)
[2021-09-30] MEDS: amLODIPine BESYLATE 10 MG TABLET (FP) PO SCH (10:17)
[2021-09-30] MEDS: NICOTINE 7 MG/24 HOURS TOPICAL PATCH TD SCH (10:18)
[2021-09-30] MEDS: PRENATAL VITAMINS W/ FOLIC ACID TABLET (FP) PO SCH (10:18)
[2021-09-30] MEDS ORDERED: BENZOCAINE 28 GM HEMORRHOIDAL OINTMENT RC PRN (11:13)
[2021-09-30] MEDS: HYDROCORTISONE 1% TOPICAL CREAM 30 GM TUBE TP SCH (12:09)
[2021-09-30] MEDS: ARTIFICIAL TEARS (POLYVINYL ALCOHOL) OPTH DROPS OU SCH (12:09)
[2021-09-30] MEDS: SODIUM CHLORIDE NASAL SPRAY 44 ML BOTTLE NS SCH (12:09)
[2021-09-30] MEDS: MAG HYDROX/AL HYDROX/SIMETH 30 ML UNIT-DOSE CUP PO PRN (13:45)
[2021-09-30] MEDS: NAPROXEN 375 MG TABLET PO PRN (17:56)
[2021-09-30] MEDS ORDERED: ARTIFICIAL TEARS (POLYVINYL ALCOHOL) OPTH DROPS OU SCH (22:00)
[2021-09-30] MEDS: THIAMINE HCL 100 MG TABLET (FP) PO SCH (22:39)
[2021-09-30] MEDS: MELATONIN 5 MG TABLETS PO SCH (22:39)
[2021-10-01] MEDS: hydrOXYzine PAMOATE 25 MG CAPSULE (FP) PO SCH ×5 (06:13→22:59)
[2021-10-01] MEDS: chlordiazePOXIDE HCL 25 MG CAPSULE PO SCH ×4 (06:13→22:59)
[2021-10-01] MEDS: FAMOTIDINE 20 MG TABLET PO SCH (06:13)
[2021-10-01] MEDS: NAPROXEN 375 MG TABLET PO PRN (10:15)
[2021-10-01] MEDS: SODIUM CHLORIDE NASAL SPRAY 44 ML BOTTLE NS SCH (10:16)
[2021-10-01] MEDS: PRENATAL VITAMINS W/ FOLIC ACID TABLET (FP) PO SCH (10:16)
[2021-10-01] MEDS: ARTIFICIAL TEARS (POLYVINYL ALCOHOL) OPTH DROPS OU SCH ×2 (10:16→22:59)
[2021-10-01] MEDS: NICOTINE 7 MG/24 HOURS TOPICAL PATCH TD SCH (10:16)
[2021-10-01] MEDS: HYDROCORTISONE 1% TOPICAL CREAM 30 GM TUBE TP SCH (10:16)
[2021-10-01] MEDS: amLODIPine BESYLATE 10 MG TABLET (FP) PO SCH (10:17)
[2021-10-01] MEDS ORDERED: BENZOCAINE/MENTHOL (CHLORASEPTIC ) LOZENGE MM PRN (12:40)
[2021-10-01] MEDS: MAG HYDROX/AL HYDROX/SIMETH 30 ML UNIT-DOSE CUP PO PRN (13:09)
[2021-10-01] MEDS: GABAPENTIN 300 MG CAPSULE PO SCH ×2 (13:10→20:50)
[2021-10-01] MEDS: METHOCARBAMOL 500 MG TABLET PO PRN (17:10)
[2021-10-01] MEDS ORDERED: NAPROXEN 375 MG TABLET PO SCH (22:00)
[2021-10-01] MEDS: MELATONIN 5 MG TABLETS PO SCH (22:59)
[2021-10-01] MEDS: THIAMINE HCL 100 MG TABLET (FP) PO SCH (22:59)
[2021-10-01] MEDS: NAPROXEN 500 MG TABLET PO SCH (23:04)
[2021-10-02] MEDS ORDERED: chlordiazePOXIDE HCL 10 MG CAPSULE PO PRN
[2021-10-02] MEDS: GABAPENTIN 300 MG CAPSULE PO SCH ×3 (05:00→23:33)
[2021-10-02] MEDS: chlordiazePOXIDE HCL 10 MG CAPSULE PO SCH ×4 (05:57→23:34)
[2021-10-02] MEDS: ARTIFICIAL TEARS (POLYVINYL ALCOHOL) OPTH DROPS OU SCH ×3 (05:57→23:34)
[2021-10-02] MEDS: FAMOTIDINE 20 MG TABLET PO SCH (05:58)
[2021-10-02] MEDS: hydrOXYzine PAMOATE 25 MG CAPSULE (FP) PO SCH ×5 (05:58→23:34)
[2021-10-02] MEDS: MAGNESIUM HYDROX 2400MG/30ML ORAL SUSPENSION 30 ML CUP PO PRN (05:59)
[2021-10-02] MEDS: NICOTINE 7 MG/24 HOURS TOPICAL PATCH TD SCH (10:53)
[2021-10-02] MEDS: amLODIPine BESYLATE 10 MG TABLET (FP) PO SCH (10:54)
[2021-10-02] MEDS: NAPROXEN 500 MG TABLET PO SCH ×2 (10:54→23:33)
[2021-10-02] MEDS: PRENATAL VITAMINS W/ FOLIC ACID TABLET (FP) PO SCH (10:55)
[2021-10-02] MEDS: HYDROCORTISONE 1% TOPICAL CREAM 30 GM TUBE TP SCH (10:55)
[2021-10-02] MEDS: SODIUM CHLORIDE NASAL SPRAY 44 ML BOTTLE NS SCH (10:55)
[2021-10-02] MEDS: MAG HYDROX/AL HYDROX/SIMETH 30 ML UNIT-DOSE CUP PO PRN (10:56)
[2021-10-02] MEDS: METHOCARBAMOL 500 MG TABLET PO PRN (18:05)
[2021-10-02] MEDS: THIAMINE HCL 100 MG TABLET (FP) PO SCH (23:33)
[2021-10-02] MEDS: MELATONIN 5 MG TABLETS PO SCH (23:34)
[2021-10-03] MEDS: MAGNESIUM HYDROX 2400MG/30ML ORAL SUSPENSION 30 ML CUP PO PRN (05:43)
[2021-10-03] MEDS: FAMOTIDINE 20 MG TABLET PO SCH (05:44)
[2021-10-03] MEDS: GABAPENTIN 300 MG CAPSULE PO SCH ×3 (05:44→23:30)
[2021-10-03] MEDS: chlordiazePOXIDE HCL 10 MG CAPSULE PO SCH ×2 (05:48→19:45)
[2021-10-03] MEDS: hydrOXYzine PAMOATE 25 MG CAPSULE (FP) PO SCH ×5 (07:18→23:31)
[2021-10-03] MEDS: ARTIFICIAL TEARS (POLYVINYL ALCOHOL) OPTH DROPS OU SCH ×3 (07:18→23:30)
[2021-10-03] MEDS: SODIUM CHLORIDE NASAL SPRAY 44 ML BOTTLE NS SCH (10:28)
[2021-10-03] MEDS: NICOTINE 7 MG/24 HOURS TOPICAL PATCH TD SCH (10:28)
[2021-10-03] MEDS: HYDROCORTISONE 1% TOPICAL CREAM 30 GM TUBE TP SCH (10:29)
[2021-10-03] MEDS: NAPROXEN 500 MG TABLET PO SCH ×2 (10:29→23:30)
[2021-10-03] MEDS: METHOCARBAMOL 500 MG TABLET PO PRN (10:29)
[2021-10-03] MEDS: amLODIPine BESYLATE 10 MG TABLET (FP) PO SCH (10:29)
[2021-10-03] MEDS: PRENATAL VITAMINS W/ FOLIC ACID TABLET (FP) PO SCH (10:30)
[2021-10-03] MEDS: MAG HYDROX/AL HYDROX/SIMETH 30 ML UNIT-DOSE CUP PO PRN (13:26)
[2021-10-03] MEDS: MELATONIN 5 MG TABLETS PO SCH (23:30)
[2021-10-03] MEDS: THIAMINE HCL 100 MG TABLET (FP) PO SCH (23:31)
[2021-10-04] MEDS ORDERED: chlordiazePOXIDE HCL 10 MG CAPSULE PO ONE (05:00)
[2021-10-04] MEDS: GABAPENTIN 300 MG CAPSULE PO SCH (05:03)
[2021-10-04] MEDS: ARTIFICIAL TEARS (POLYVINYL ALCOHOL) OPTH DROPS OU SCH (06:02)
[2021-10-04] MEDS: hydrOXYzine PAMOATE 25 MG CAPSULE (FP) PO SCH ×2 (06:02→10:20)
[2021-10-04] MEDS: FAMOTIDINE 20 MG TABLET PO SCH (06:04)
[2021-10-04 09:48] VITALS: BP 139/84; PULSE 96; TEMP 98
[2021-10-04] MEDS: MAG HYDROX/AL HYDROX/SIMETH 30 ML UNIT-DOSE CUP PO PRN (10:17)
[2021-10-04] MEDS: NAPROXEN 500 MG TABLET PO SCH (10:17)
[2021-10-04] MEDS: METHOCARBAMOL 500 MG TABLET PO PRN (10:17)
[2021-10-04] MEDS: amLODIPine BESYLATE 10 MG TABLET (FP) PO SCH (10:17)
[2021-10-04] MEDS: PRENATAL VITAMINS W/ FOLIC ACID TABLET (FP) PO SCH (10:17)
[2021-10-04] MEDS: SODIUM CHLORIDE NASAL SPRAY 44 ML BOTTLE NS SCH (10:18)
[2021-10-04] MEDS: HYDROCORTISONE 1% TOPICAL CREAM 30 GM TUBE TP SCH (10:18)
[2021-10-04] MEDS: NICOTINE 7 MG/24 HOURS TOPICAL PATCH TD SCH (10:18)
== END 2021-10-04 01:10 | disposition other institution (70) | DRG 775 ==
LOC: YASAS 09:58 → Y6N 11:18
PROVIDERS: ADMIT Allergy & Immunology; ATTEND Surgery
PROC: HZ2ZZZZ Detoxification Services for Substance Abuse Treatment (ICD-10-PCS; principal; 2021-09-29)
DX: F10.230 Alcohol dependence with withdrawal, uncomplicated (principal); F12.20 Cannabis dependence, uncomplicated; F17.210 Nicotine dependence, cigarettes, uncomplicated; I10 Essential (primary) hypertension; K21.9 Gastro-esophageal reflux disease without esophagitis; J30.2 Other seasonal allergic rhinitis; K64.9 Unspecified hemorrhoids; M25.562 Pain in left knee; E66.9 Obesity, unspecified; Z68.33 Body mass index [BMI] 33.0-33.9, adult; Z86.11 Personal history of tuberculosis; Z88.0 Allergy status to penicillin; Z88.7 Allergy status to serum and vaccine; Z91.018 Allergy to other foods; Z28.310 Unvaccinated for COVID-19
CPT/HCPCS: 36415; 80053; 82962; 85027; 86593; 86780; 87811; C9803-CS; U0003; U0005

== ENCOUNTER 2021-10-04 13:10 | Inpatient (IN) | payer OTHER ==
[2021-10-04] MEDS ORDERED: P-EPHED 60MG/TRIPROLIDI 2.5MG TABLET PO PRN (16:10)
[2021-10-04] MEDS ORDERED: guaiFENesin 200 MG/10 ML 10 ML UNIT-DOSE CUPS PO PRN (16:10)
[2021-10-04] MEDS ORDERED: IBUPROFEN 400 MG TABLET (FP) PO PRN (16:10)
[2021-10-04] MEDS ORDERED: LOPERAMIDE HCL 2 MG CAPSULE PO PRN (16:10)
[2021-10-04] MEDS ORDERED: hydrOXYzine PAMOATE 25 MG CAPSULE (FP) PO PRN (16:10)
[2021-10-04] MEDS ORDERED: MAGNESIUM CITRATE 300 ML BOTTLE PO PRN (16:10)
[2021-10-04] MEDS: THIAMINE HCL 100 MG TABLET (FP) PO SCH (21:31)
[2021-10-04] MEDS: MELATONIN 5 MG TABLETS PO SCH (21:31)
[2021-10-04] MEDS: NAPROXEN 500 MG TABLET PO SCH (21:33)
[2021-10-04] MEDS: GABAPENTIN 300 MG CAPSULE PO SCH (21:33)
[2021-10-04] MEDS: ARTIFICIAL TEARS (POLYVINYL ALCOHOL) OPTH DROPS OU SCH (21:33)
[2021-10-04] MEDS: HYDROCORTISONE 2.5% TOPICAL CREAM 30 GM TUBE PR SCH (22:06)
[2021-10-05] MEDS: MAGNESIUM HYDROX 2400MG/30ML ORAL SUSPENSION 30 ML CUP PO PRN (06:54)
[2021-10-05] MEDS: GABAPENTIN 300 MG CAPSULE PO SCH ×3 (06:54→21:29)
[2021-10-05] MEDS: ACETAMINOPHEN 325 MG TABLET (FP) PO PRN ×2 (06:54→14:16)
[2021-10-05] MEDS: ARTIFICIAL TEARS (POLYVINYL ALCOHOL) OPTH DROPS OU SCH ×3 (06:55→21:30)
[2021-10-05] MEDS ORDERED: FAMOTIDINE 20 MG TABLET PO SCH (10:00)
[2021-10-05] MEDS: amLODIPine BESYLATE 10 MG TABLET (FP) PO SCH (10:18)
[2021-10-05] MEDS: PRENATAL VITAMINS W/ FOLIC ACID TABLET (FP) PO SCH (10:18)
[2021-10-05] MEDS: NAPROXEN 500 MG TABLET PO SCH (10:18)
[2021-10-05] MEDS: HYDROCORTISONE 1% TOPICAL CREAM 30 GM TUBE TP SCH (10:19)
[2021-10-05] MEDS: SODIUM CHLORIDE NASAL SPRAY 44 ML BOTTLE NS SCH (10:19)
[2021-10-05] MEDS ORDERED: BENZOCAINE/MENTH/CETYLPYRD CL 1 EACH LOZENGE MM PRN (10:22)
[2021-10-05] MEDS: MAG HYDROX/AL HYDROX/SIMETH 30 ML UNIT-DOSE CUP PO PRN ×2 (12:58→21:30)
[2021-10-05] MEDS: BENZOCAINE/MENTHOL (CHLORASEPTIC ) LOZENGE MM PRN (12:58)
[2021-10-05] MEDS: THIAMINE HCL 100 MG TABLET (FP) PO SCH (21:29)
[2021-10-05] MEDS: NAPROXEN 500 MG TABLET PO PRN (21:29)
[2021-10-05] MEDS: MELATONIN 5 MG TABLETS PO SCH (21:29)
[2021-10-05] MEDS: HYDROCORTISONE 2.5% TOPICAL CREAM 30 GM TUBE PR SCH (21:30)
[2021-10-05] MEDS: METHYL SALICYLATE/MENTHOL OINT 30 GM TUBE TP SCH (21:30)
[2021-10-06] MEDS: ACETAMINOPHEN 325 MG TABLET (FP) PO PRN ×2 (06:51→14:30)
[2021-10-06] MEDS: GABAPENTIN 300 MG CAPSULE PO SCH ×3 (06:51→23:35)
[2021-10-06] MEDS: FAMOTIDINE 20 MG TABLET PO SCH (06:51)
[2021-10-06] MEDS: ARTIFICIAL TEARS (POLYVINYL ALCOHOL) OPTH DROPS OU SCH ×3 (06:51→23:35)
[2021-10-06] MEDS: MAGNESIUM HYDROX 2400MG/30ML ORAL SUSPENSION 30 ML CUP PO PRN (06:55)
[2021-10-06] MEDS: PRENATAL VITAMINS W/ FOLIC ACID TABLET (FP) PO SCH (10:29)
[2021-10-06] MEDS: SODIUM CHLORIDE NASAL SPRAY 44 ML BOTTLE NS SCH (10:30)
[2021-10-06] MEDS: METHYL SALICYLATE/MENTHOL OINT 30 GM TUBE TP SCH ×2 (10:30→23:35)
[2021-10-06] MEDS: HYDROCORTISONE 1% TOPICAL CREAM 30 GM TUBE TP SCH (10:31)
[2021-10-06] MEDS: amLODIPine BESYLATE 10 MG TABLET (FP) PO SCH (10:32)
[2021-10-06] MEDS: NAPROXEN 500 MG TABLET PO PRN (10:33)
[2021-10-06] MEDS: HYDROCORTISONE ACETATE 25 MG/SUPP.RECT RC PRN (10:35)
[2021-10-06] MEDS: BENZOCAINE/MENTHOL (CHLORASEPTIC ) LOZENGE MM PRN (14:56)
[2021-10-06] MEDS: MAG HYDROX/AL HYDROX/SIMETH 30 ML UNIT-DOSE CUP PO PRN (18:37)
[2021-10-06] MEDS: HYDROCORTISONE 2.5% TOPICAL CREAM 30 GM TUBE PR SCH (23:34)
[2021-10-06] MEDS: FLUTICASONE PROP 0.05% 16 GM NASAL SPRAY NS SCH (23:35)
[2021-10-06] MEDS: SENNOSIDES 8.6MG TABLET (FP) PO SCH (23:35)
[2021-10-06] MEDS: MELATONIN 5 MG TABLETS PO SCH (23:35)
[2021-10-06] MEDS: THIAMINE HCL 100 MG TABLET (FP) PO SCH (23:36)
[2021-10-07] MEDS: ACETAMINOPHEN 325 MG TABLET (FP) PO PRN (06:44)
[2021-10-07] MEDS: GABAPENTIN 300 MG CAPSULE PO SCH ×3 (06:45→21:46)
[2021-10-07] MEDS: ARTIFICIAL TEARS (POLYVINYL ALCOHOL) OPTH DROPS OU SCH ×3 (06:45→21:45)
[2021-10-07] MEDS: FAMOTIDINE 20 MG TABLET PO SCH (06:45)
[2021-10-07] MEDS: MAGNESIUM HYDROX 2400MG/30ML ORAL SUSPENSION 30 ML CUP PO PRN (06:46)
[2021-10-07] MEDS: HYDROCORTISONE ACETATE 25 MG/SUPP.RECT RC PRN ×2 (10:05→21:43)
[2021-10-07] MEDS: PRENATAL VITAMINS W/ FOLIC ACID TABLET (FP) PO SCH (10:05)
[2021-10-07] MEDS: METHYL SALICYLATE/MENTHOL OINT 30 GM TUBE TP SCH ×2 (10:05→21:45)
[2021-10-07] MEDS: amLODIPine BESYLATE 10 MG TABLET (FP) PO SCH (10:06)
[2021-10-07] MEDS: FLUTICASONE PROP 0.05% 16 GM NASAL SPRAY NS SCH ×2 (10:06→21:44)
[2021-10-07] MEDS: NAPROXEN 500 MG TABLET PO PRN ×2 (10:06→21:43)
[2021-10-07] MEDS: HYDROCORTISONE 1% TOPICAL CREAM 30 GM TUBE TP SCH (10:07)
[2021-10-07] MEDS: MAG HYDROX/AL HYDROX/SIMETH 30 ML UNIT-DOSE CUP PO PRN ×2 (13:48→21:47)
[2021-10-07] MEDS: BENZOCAINE/MENTHOL (CHLORASEPTIC ) LOZENGE MM PRN (21:43)
[2021-10-07] MEDS: HYDROCORTISONE 2.5% TOPICAL CREAM 30 GM TUBE PR SCH (21:45)
[2021-10-07] MEDS: MELATONIN 5 MG TABLETS PO SCH (21:46)
[2021-10-07] MEDS: THIAMINE HCL 100 MG TABLET (FP) PO SCH (21:46)
[2021-10-07] MEDS: SENNOSIDES 8.6MG TABLET (FP) PO SCH (21:46)
[2021-10-08] MEDS: ARTIFICIAL TEARS (POLYVINYL ALCOHOL) OPTH DROPS OU SCH ×3 (06:54→21:32)
[2021-10-08] MEDS: GABAPENTIN 300 MG CAPSULE PO SCH ×3 (06:54→21:30)
[2021-10-08] MEDS: FAMOTIDINE 20 MG TABLET PO SCH (06:54)
[2021-10-08] MEDS: ACETAMINOPHEN 325 MG TABLET (FP) PO PRN (06:55)
[2021-10-08] MEDS: PRENATAL VITAMINS W/ FOLIC ACID TABLET (FP) PO SCH (10:22)
[2021-10-08] MEDS: METHYL SALICYLATE/MENTHOL OINT 30 GM TUBE TP SCH ×2 (10:23→21:32)
[2021-10-08] MEDS: amLODIPine BESYLATE 10 MG TABLET (FP) PO SCH (10:24)
[2021-10-08] MEDS: HYDROCORTISONE 1% TOPICAL CREAM 30 GM TUBE TP SCH (10:24)
[2021-10-08] MEDS: FLUTICASONE PROP 0.05% 16 GM NASAL SPRAY NS SCH ×2 (10:24→21:28)
[2021-10-08] MEDS: NAPROXEN 500 MG TABLET PO PRN ×2 (10:25→21:27)
[2021-10-08] MEDS: BENZOCAINE/MENTHOL (CHLORASEPTIC ) LOZENGE MM PRN (10:26)
[2021-10-08] MEDS: LIDOCAINE 5% TOPICAL PATCH TP SCH (14:05)
[2021-10-08] MEDS: SENNOSIDES 8.6MG TABLET (FP) PO PRN (14:07)
[2021-10-08] MEDS: THIAMINE HCL 100 MG TABLET (FP) PO SCH (21:27)
[2021-10-08] MEDS: HYDROCORTISONE ACETATE 25 MG/SUPP.RECT RC PRN (21:29)
[2021-10-08] MEDS: MELATONIN 5 MG TABLETS PO SCH (21:31)
[2021-10-08] MEDS: LIDOCAINE PATCH REMOVAL MC SCH (21:31)
[2021-10-08] MEDS: HYDROCORTISONE 2.5% TOPICAL CREAM 30 GM TUBE PR SCH (21:49)
[2021-10-09] MEDS: ARTIFICIAL TEARS (POLYVINYL ALCOHOL) OPTH DROPS OU SCH ×3 (07:15→22:01)
[2021-10-09] MEDS: FAMOTIDINE 20 MG TABLET PO SCH (07:15)
[2021-10-09] MEDS: GABAPENTIN 300 MG CAPSULE PO SCH ×3 (07:15→21:27)
[2021-10-09] MEDS: ACETAMINOPHEN 325 MG TABLET (FP) PO PRN (07:16)
[2021-10-09] MEDS: METHYL SALICYLATE/MENTHOL OINT 30 GM TUBE TP SCH ×2 (10:09→21:26)
[2021-10-09] MEDS: PRENATAL VITAMINS W/ FOLIC ACID TABLET (FP) PO SCH (10:09)
[2021-10-09] MEDS: LIDOCAINE 5% TOPICAL PATCH TP SCH (10:10)
[2021-10-09] MEDS: SENNOSIDES 8.6MG TABLET (FP) PO PRN ×2 (10:10→21:28)
[2021-10-09] MEDS: FLUTICASONE PROP 0.05% 16 GM NASAL SPRAY NS SCH ×2 (10:10→21:27)
[2021-10-09] MEDS: HYDROCORTISONE 1% TOPICAL CREAM 30 GM TUBE TP SCH (10:10)
[2021-10-09] MEDS: amLODIPine BESYLATE 10 MG TABLET (FP) PO SCH (10:11)
[2021-10-09] MEDS: NAPROXEN 500 MG TABLET PO PRN ×2 (10:11→21:27)
[2021-10-09] MEDS: HYDROCORTISONE ACETATE 25 MG/SUPP.RECT RC PRN ×2 (10:11→21:28)
[2021-10-09] MEDS: BENZOCAINE/MENTHOL (CHLORASEPTIC ) LOZENGE MM PRN (10:12)
[2021-10-09] MEDS: MAG HYDROX/AL HYDROX/SIMETH 30 ML UNIT-DOSE CUP PO PRN (15:50)
[2021-10-09] MEDS: HYDROCORTISONE 2.5% TOPICAL CREAM 30 GM TUBE PR SCH (21:25)
[2021-10-09] MEDS: MELATONIN 5 MG TABLETS PO SCH (21:27)
[2021-10-09] MEDS: THIAMINE HCL 100 MG TABLET (FP) PO SCH (21:27)
[2021-10-09] MEDS: LIDOCAINE PATCH REMOVAL MC SCH (21:29)
[2021-10-10] MEDS: ARTIFICIAL TEARS (POLYVINYL ALCOHOL) OPTH DROPS OU SCH ×3 (07:09→22:29)
[2021-10-10] MEDS: FAMOTIDINE 20 MG TABLET PO SCH (07:10)
[2021-10-10] MEDS: GABAPENTIN 300 MG CAPSULE PO SCH ×3 (07:10→22:28)
[2021-10-10] MEDS: ACETAMINOPHEN 325 MG TABLET (FP) PO PRN (07:11)
[2021-10-10] MEDS: METHYL SALICYLATE/MENTHOL OINT 30 GM TUBE TP SCH ×2 (09:53→22:28)
[2021-10-10] MEDS: PRENATAL VITAMINS W/ FOLIC ACID TABLET (FP) PO SCH (09:53)
[2021-10-10] MEDS: NAPROXEN 500 MG TABLET PO PRN ×2 (09:55→22:28)
[2021-10-10] MEDS: amLODIPine BESYLATE 10 MG TABLET (FP) PO SCH (09:55)
[2021-10-10] MEDS: HYDROCORTISONE 1% TOPICAL CREAM 30 GM TUBE TP SCH (09:55)
[2021-10-10] MEDS: FLUTICASONE PROP 0.05% 16 GM NASAL SPRAY NS SCH ×2 (09:55→22:29)
[2021-10-10] MEDS: LIDOCAINE 5% TOPICAL PATCH TP SCH (09:56)
[2021-10-10] MEDS: BENZOCAINE/MENTHOL (CHLORASEPTIC ) LOZENGE MM PRN ×2 (09:56→22:31)
[2021-10-10] MEDS: SENNOSIDES 8.6MG TABLET (FP) PO PRN ×2 (13:49→22:28)
[2021-10-10] MEDS: MAG HYDROX/AL HYDROX/SIMETH 30 ML UNIT-DOSE CUP PO PRN ×2 (14:03→22:28)
[2021-10-10] MEDS: LIDOCAINE PATCH REMOVAL MC SCH (22:22)
[2021-10-10] MEDS: THIAMINE HCL 100 MG TABLET (FP) PO SCH (22:28)
[2021-10-10] MEDS: MELATONIN 5 MG TABLETS PO SCH (22:28)
[2021-10-10] MEDS: HYDROCORTISONE 2.5% TOPICAL CREAM 30 GM TUBE PR SCH (22:29)
[2021-10-10] MEDS: HYDROCORTISONE ACETATE 25 MG/SUPP.RECT RC PRN (22:29)
[2021-10-11] MEDS: ACETAMINOPHEN 325 MG TABLET (FP) PO PRN (07:05)
[2021-10-11] MEDS: GABAPENTIN 300 MG CAPSULE PO SCH ×3 (07:05→21:43)
[2021-10-11] MEDS: FAMOTIDINE 20 MG TABLET PO SCH (07:05)
[2021-10-11] MEDS: ARTIFICIAL TEARS (POLYVINYL ALCOHOL) OPTH DROPS OU SCH ×3 (07:06→21:42)
[2021-10-11] MEDS: FLUTICASONE PROP 0.05% 16 GM NASAL SPRAY NS SCH ×2 (10:04→21:42)
[2021-10-11] MEDS: amLODIPine BESYLATE 10 MG TABLET (FP) PO SCH (10:05)
[2021-10-11] MEDS: PRENATAL VITAMINS W/ FOLIC ACID TABLET (FP) PO SCH (10:05)
[2021-10-11] MEDS: NAPROXEN 500 MG TABLET PO PRN ×2 (10:05→21:43)
[2021-10-11] MEDS: SENNOSIDES 8.6MG TABLET (FP) PO PRN ×2 (10:05→21:43)
[2021-10-11] MEDS: LIDOCAINE 5% TOPICAL PATCH TP SCH (10:06)
[2021-10-11] MEDS: METHYL SALICYLATE/MENTHOL OINT 30 GM TUBE TP SCH ×2 (10:06→21:41)
[2021-10-11] MEDS: HYDROCORTISONE 1% TOPICAL CREAM 30 GM TUBE TP SCH (10:08)
[2021-10-11] MEDS: HYDROCORTISONE 2.5% TOPICAL CREAM 30 GM TUBE PR SCH (21:40)
[2021-10-11] MEDS: LIDOCAINE PATCH REMOVAL MC SCH (21:42)
[2021-10-11] MEDS: THIAMINE HCL 100 MG TABLET (FP) PO SCH (21:43)
[2021-10-11] MEDS: MELATONIN 5 MG TABLETS PO SCH (21:43)
[2021-10-12] MEDS: ACETAMINOPHEN 325 MG TABLET (FP) PO PRN ×2 (07:13→13:56)
[2021-10-12] MEDS: GABAPENTIN 300 MG CAPSULE PO SCH ×3 (07:14→21:32)
[2021-10-12] MEDS: FAMOTIDINE 20 MG TABLET PO SCH (07:14)
[2021-10-12] MEDS: ARTIFICIAL TEARS (POLYVINYL ALCOHOL) OPTH DROPS OU SCH ×3 (07:14→21:46)
[2021-10-12] MEDS: PRENATAL VITAMINS W/ FOLIC ACID TABLET (FP) PO SCH (10:02)
[2021-10-12] MEDS: SENNOSIDES 8.6MG TABLET (FP) PO PRN ×2 (10:03→21:32)
[2021-10-12] MEDS: amLODIPine BESYLATE 10 MG TABLET (FP) PO SCH (10:04)
[2021-10-12] MEDS: LIDOCAINE 5% TOPICAL PATCH TP SCH (10:04)
[2021-10-12] MEDS: FLUTICASONE PROP 0.05% 16 GM NASAL SPRAY NS SCH ×2 (10:04→21:33)
[2021-10-12] MEDS: METHYL SALICYLATE/MENTHOL OINT 30 GM TUBE TP SCH ×2 (10:04→21:32)
[2021-10-12] MEDS: HYDROCORTISONE 1% TOPICAL CREAM 30 GM TUBE TP SCH (10:05)
[2021-10-12] MEDS: NAPROXEN 500 MG TABLET PO PRN ×2 (10:05→21:32)
[2021-10-12] MEDS: BENZOCAINE/MENTHOL (CHLORASEPTIC ) LOZENGE MM PRN (10:07)
[2021-10-12] MEDS: THIAMINE HCL 100 MG TABLET (FP) PO SCH (21:32)
[2021-10-12] MEDS: HYDROCORTISONE ACETATE 25 MG/SUPP.RECT RC PRN (21:33)
[2021-10-12] MEDS: LIDOCAINE PATCH REMOVAL MC SCH (21:46)
[2021-10-12] MEDS: MELATONIN 5 MG TABLETS PO SCH (21:46)
[2021-10-13] MEDS: ARTIFICIAL TEARS (POLYVINYL ALCOHOL) OPTH DROPS OU SCH ×3 (05:22→21:41)
[2021-10-13] MEDS: ACETAMINOPHEN 325 MG TABLET (FP) PO PRN (05:22)
[2021-10-13] MEDS: FAMOTIDINE 20 MG TABLET PO SCH (05:22)
[2021-10-13] MEDS: GABAPENTIN 300 MG CAPSULE PO SCH ×3 (05:22→21:41)
[2021-10-13] MEDS: MAGNESIUM HYDROX 2400MG/30ML ORAL SUSPENSION 30 ML CUP PO PRN (06:25)
[2021-10-13] MEDS: LIDOCAINE 5% TOPICAL PATCH TP SCH (10:00)
[2021-10-13] MEDS: PRENATAL VITAMINS W/ FOLIC ACID TABLET (FP) PO SCH (10:00)
[2021-10-13] MEDS: FLUTICASONE PROP 0.05% 16 GM NASAL SPRAY NS SCH ×2 (10:01→21:43)
[2021-10-13] MEDS: METHYL SALICYLATE/MENTHOL OINT 30 GM TUBE TP SCH ×2 (10:01→21:41)
[2021-10-13] MEDS: HYDROCORTISONE 1% TOPICAL CREAM 30 GM TUBE TP SCH (10:02)
[2021-10-13] MEDS: amLODIPine BESYLATE 10 MG TABLET (FP) PO SCH (10:03)
[2021-10-13] MEDS: BENZOCAINE/MENTHOL (CHLORASEPTIC ) LOZENGE MM PRN (10:05)
[2021-10-13] MEDS: NAPROXEN 500 MG TABLET PO PRN ×2 (10:05→21:45)
[2021-10-13] MEDS: THIAMINE HCL 100 MG TABLET (FP) PO SCH (21:41)
[2021-10-13] MEDS: LIDOCAINE PATCH REMOVAL MC SCH (21:42)
[2021-10-13] MEDS: MELATONIN 5 MG TABLETS PO SCH (21:42)
[2021-10-13] MEDS: HYDROCORTISONE ACETATE 25 MG/SUPP.RECT RC PRN (21:43)
[2021-10-13] MEDS: SENNOSIDES 8.6MG TABLET (FP) PO PRN (21:45)
[2021-10-14] MEDS: ARTIFICIAL TEARS (POLYVINYL ALCOHOL) OPTH DROPS OU SCH ×3 (05:49→21:45)
[2021-10-14] MEDS: GABAPENTIN 300 MG CAPSULE PO SCH ×3 (05:50→21:47)
[2021-10-14] MEDS: ACETAMINOPHEN 325 MG TABLET (FP) PO PRN (05:50)
[2021-10-14] MEDS: FAMOTIDINE 20 MG TABLET PO SCH (05:50)
[2021-10-14] MEDS: LIDOCAINE 5% TOPICAL PATCH TP SCH (10:14)
[2021-10-14] MEDS: PRENATAL VITAMINS W/ FOLIC ACID TABLET (FP) PO SCH (10:14)
[2021-10-14] MEDS: NAPROXEN 500 MG TABLET PO PRN ×2 (10:15→21:47)
[2021-10-14] MEDS: FLUTICASONE PROP 0.05% 16 GM NASAL SPRAY NS SCH ×2 (10:15→21:50)
[2021-10-14] MEDS: amLODIPine BESYLATE 10 MG TABLET (FP) PO SCH (10:15)
[2021-10-14] MEDS: METHYL SALICYLATE/MENTHOL OINT 30 GM TUBE TP SCH ×2 (10:15→21:46)
[2021-10-14] MEDS: HYDROCORTISONE 1% TOPICAL CREAM 30 GM TUBE TP SCH (10:15)
[2021-10-14] MEDS: SENNOSIDES 8.6MG TABLET (FP) PO PRN ×2 (10:16→21:50)
[2021-10-14] MEDS: BENZOCAINE/MENTHOL (CHLORASEPTIC ) LOZENGE MM PRN (10:17)
[2021-10-14] MEDS: MAG HYDROX/AL HYDROX/SIMETH 30 ML UNIT-DOSE CUP PO PRN (19:34)
[2021-10-14] MEDS: THIAMINE HCL 100 MG TABLET (FP) PO SCH (21:47)
[2021-10-14] MEDS: HYDROCORTISONE ACETATE 25 MG/SUPP.RECT RC PRN (21:47)
[2021-10-14] MEDS: MELATONIN 5 MG TABLETS PO SCH (21:48)
[2021-10-14] MEDS: LIDOCAINE PATCH REMOVAL MC SCH (21:48)
[2021-10-15] MEDS: ACETAMINOPHEN 325 MG TABLET (FP) PO PRN (06:06)
[2021-10-15] MEDS: FAMOTIDINE 20 MG TABLET PO SCH (06:06)
[2021-10-15] MEDS: GABAPENTIN 300 MG CAPSULE PO SCH ×3 (06:06→21:37)
[2021-10-15] MEDS: ARTIFICIAL TEARS (POLYVINYL ALCOHOL) OPTH DROPS OU SCH ×3 (06:06→21:38)
[2021-10-15] MEDS: PRENATAL VITAMINS W/ FOLIC ACID TABLET (FP) PO SCH (10:15)
[2021-10-15] MEDS: amLODIPine BESYLATE 10 MG TABLET (FP) PO SCH (10:16)
[2021-10-15] MEDS: FLUTICASONE PROP 0.05% 16 GM NASAL SPRAY NS SCH ×2 (10:16→21:38)
[2021-10-15] MEDS: HYDROCORTISONE 1% TOPICAL CREAM 30 GM TUBE TP SCH (10:16)
[2021-10-15] MEDS: NAPROXEN 500 MG TABLET PO PRN ×2 (10:16→21:41)
[2021-10-15] MEDS: METHYL SALICYLATE/MENTHOL OINT 30 GM TUBE TP SCH ×2 (10:17→21:38)
[2021-10-15] MEDS: LIDOCAINE 5% TOPICAL PATCH TP SCH (10:18)
[2021-10-15] MEDS: THIAMINE HCL 100 MG TABLET (FP) PO SCH (21:37)
[2021-10-15] MEDS: MELATONIN 5 MG TABLETS PO SCH (21:38)
[2021-10-15] MEDS: LIDOCAINE PATCH REMOVAL MC SCH (21:38)
[2021-10-15] MEDS: SENNOSIDES 8.6MG TABLET (FP) PO PRN (21:39)
[2021-10-16] MEDS: GABAPENTIN 300 MG CAPSULE PO SCH ×3 (05:51→21:43)
[2021-10-16] MEDS: ARTIFICIAL TEARS (POLYVINYL ALCOHOL) OPTH DROPS OU SCH ×3 (05:51→21:42)
[2021-10-16] MEDS: FAMOTIDINE 20 MG TABLET PO SCH (05:51)
[2021-10-16] MEDS: ACETAMINOPHEN 325 MG TABLET (FP) PO PRN (05:52)
[2021-10-16] MEDS: LIDOCAINE 5% TOPICAL PATCH TP SCH (10:25)
[2021-10-16] MEDS: METHYL SALICYLATE/MENTHOL OINT 30 GM TUBE TP SCH ×2 (10:25→21:42)
[2021-10-16] MEDS: HYDROCORTISONE 1% TOPICAL CREAM 30 GM TUBE TP SCH (10:25)
[2021-10-16] MEDS: FLUTICASONE PROP 0.05% 16 GM NASAL SPRAY NS SCH ×2 (10:25→21:43)
[2021-10-16] MEDS: PRENATAL VITAMINS W/ FOLIC ACID TABLET (FP) PO SCH (10:26)
[2021-10-16] MEDS: amLODIPine BESYLATE 10 MG TABLET (FP) PO SCH (10:26)
[2021-10-16] MEDS: BENZOCAINE/MENTHOL (CHLORASEPTIC ) LOZENGE MM PRN (10:28)
[2021-10-16] MEDS: MAGNESIUM HYDROX 2400MG/30ML ORAL SUSPENSION 30 ML CUP PO PRN (10:28)
[2021-10-16] MEDS: NAPROXEN 500 MG TABLET PO PRN (10:28)
[2021-10-16] MEDS: SENNOSIDES 8.6MG TABLET (FP) PO PRN (21:43)
[2021-10-16] MEDS: MELATONIN 5 MG TABLETS PO SCH (21:43)
[2021-10-16] MEDS: LIDOCAINE PATCH REMOVAL MC SCH (21:43)
[2021-10-16] MEDS: THIAMINE HCL 100 MG TABLET (FP) PO SCH (21:43)
[2021-10-16] MEDS: HYDROCORTISONE ACETATE 25 MG/SUPP.RECT RC PRN (21:44)
[2021-10-17] MEDS: GABAPENTIN 300 MG CAPSULE PO SCH ×3 (06:02→22:25)
[2021-10-17] MEDS: FAMOTIDINE 20 MG TABLET PO SCH (06:02)
[2021-10-17] MEDS: ARTIFICIAL TEARS (POLYVINYL ALCOHOL) OPTH DROPS OU SCH ×3 (06:03→22:24)
[2021-10-17] MEDS: ACETAMINOPHEN 325 MG TABLET (FP) PO PRN ×2 (06:03→13:47)
[2021-10-17] MEDS: PRENATAL VITAMINS W/ FOLIC ACID TABLET (FP) PO SCH (10:30)
[2021-10-17] MEDS: FLUTICASONE PROP 0.05% 16 GM NASAL SPRAY NS SCH ×2 (10:31→22:24)
[2021-10-17] MEDS: LIDOCAINE 5% TOPICAL PATCH TP SCH (10:32)
[2021-10-17] MEDS: BENZOCAINE/MENTHOL (CHLORASEPTIC ) LOZENGE MM PRN (10:33)
[2021-10-17] MEDS: HYDROCORTISONE 1% TOPICAL CREAM 30 GM TUBE TP SCH (11:30)
[2021-10-17] MEDS: amLODIPine BESYLATE 10 MG TABLET (FP) PO SCH (11:30)
[2021-10-17] MEDS: METHYL SALICYLATE/MENTHOL OINT 30 GM TUBE TP SCH ×2 (11:30→22:24)
[2021-10-17] MEDS: MELATONIN 5 MG TABLETS PO SCH (22:24)
[2021-10-17] MEDS: LIDOCAINE PATCH REMOVAL MC SCH (22:24)
[2021-10-17] MEDS: THIAMINE HCL 100 MG TABLET (FP) PO SCH (22:25)
[2021-10-18] MEDS: ARTIFICIAL TEARS (POLYVINYL ALCOHOL) OPTH DROPS OU SCH ×3 (05:40→21:33)
[2021-10-18] MEDS: ACETAMINOPHEN 325 MG TABLET (FP) PO PRN (05:41)
[2021-10-18] MEDS: FAMOTIDINE 20 MG TABLET PO SCH (05:41)
[2021-10-18] MEDS: GABAPENTIN 300 MG CAPSULE PO SCH ×3 (05:41→21:34)
[2021-10-18] MEDS: MAGNESIUM HYDROX 2400MG/30ML ORAL SUSPENSION 30 ML CUP PO PRN (05:43)
[2021-10-18] MEDS: BENZOCAINE/MENTHOL (CHLORASEPTIC ) LOZENGE MM PRN (10:15)
[2021-10-18] MEDS: NAPROXEN 500 MG TABLET PO PRN ×2 (10:16→21:34)
[2021-10-18] MEDS: FLUTICASONE PROP 0.05% 16 GM NASAL SPRAY NS SCH ×2 (10:16→21:33)
[2021-10-18] MEDS: amLODIPine BESYLATE 10 MG TABLET (FP) PO SCH (10:16)
[2021-10-18] MEDS: METHYL SALICYLATE/MENTHOL OINT 30 GM TUBE TP SCH ×2 (10:16→21:33)
[2021-10-18] MEDS: LIDOCAINE 5% TOPICAL PATCH TP SCH (10:17)
[2021-10-18] MEDS: PRENATAL VITAMINS W/ FOLIC ACID TABLET (FP) PO SCH (10:17)
[2021-10-18] MEDS: HYDROCORTISONE 1% TOPICAL CREAM 30 GM TUBE TP SCH (10:17)
[2021-10-18] MEDS: THIAMINE HCL 100 MG TABLET (FP) PO SCH (21:34)
[2021-10-18] MEDS: MELATONIN 5 MG TABLETS PO SCH (21:34)
[2021-10-18] MEDS: LIDOCAINE PATCH REMOVAL MC SCH (21:34)
[2021-10-18] MEDS: HYDROCORTISONE ACETATE 25 MG/SUPP.RECT RC PRN (21:35)
[2021-10-19] MEDS: FAMOTIDINE 20 MG TABLET PO SCH (06:02)
[2021-10-19] MEDS: GABAPENTIN 300 MG CAPSULE PO SCH (06:02)
[2021-10-19] MEDS: NAPROXEN 500 MG TABLET PO PRN (06:03)
[2021-10-19] MEDS: ARTIFICIAL TEARS (POLYVINYL ALCOHOL) OPTH DROPS OU SCH (06:04)
[2021-10-19 07:21] VITALS: TEMP 97.3
[2021-10-19] MEDS: PRENATAL VITAMINS W/ FOLIC ACID TABLET (FP) PO SCH (09:24)
[2021-10-19] MEDS: amLODIPine BESYLATE 10 MG TABLET (FP) PO SCH (09:24)
[2021-10-19] MEDS: METHYL SALICYLATE/MENTHOL OINT 30 GM TUBE TP SCH (09:24)
[2021-10-19] MEDS: LIDOCAINE 5% TOPICAL PATCH TP SCH (09:25)
[2021-10-19] MEDS: HYDROCORTISONE 1% TOPICAL CREAM 30 GM TUBE TP SCH (09:25)
[2021-10-19] MEDS: FLUTICASONE PROP 0.05% 16 GM NASAL SPRAY NS SCH (09:28)
[2021-10-19 10:47] VITALS: BP 117/67; PULSE 101
== END 2021-10-19 10:30 | disposition home or self-care (01) | DRG 772 ==
LOC: YASAS 13:10 → Y3E 13:11 → Y5N 14:50
PROVIDERS: ADMIT Allergy & Immunology; ATTEND Psychiatry & Neurology Pain Medicine
PROC: HZ42ZZZ Group Counseling for Substance Abuse Treatment, Cognitive-Behavioral (ICD-10-PCS; principal; 2021-10-04)
DX: F10.20 Alcohol dependence, uncomplicated (principal); F17.210 Nicotine dependence, cigarettes, uncomplicated; I10 Essential (primary) hypertension; K59.00 Constipation, unspecified; K21.9 Gastro-esophageal reflux disease without esophagitis; K64.9 Unspecified hemorrhoids; E66.9 Obesity, unspecified; Z68.30 Body mass index [BMI] 30.0-30.9, adult; Z86.19 Personal history of other infectious and parasitic diseases; Z88.0 Allergy status to penicillin; Z88.7 Allergy status to serum and vaccine
CPT/HCPCS: 82962

== ENCOUNTER 2021-11-27 19:47 | Inpatient (IN) | payer OTHER ==
[2021-11-27 20:29] VITALS: BMI 27.7
[2021-11-27] MEDS ORDERED: NICOTINE 10 MG CARTRIDGE (INHALER) IH PRN (22:16)
[2021-11-27] MEDS ORDERED: BISMUTH SUBSALICYLATE 524 MG/30 ML PO PRN (22:16)
[2021-11-27] MEDS ORDERED: ACETAMINOPHEN 325 MG TABLET (FP) PO PRN ×2 (22:16)
[2021-11-27] MEDS ORDERED: MAGNESIUM CITRATE 300 ML BOTTLE PO PRN (22:16)
[2021-11-27] MEDS ORDERED: METHOCARBAMOL 500 MG TABLET PO PRN (22:16)
[2021-11-27] MEDS ORDERED: ONDANSETRON *ODT* 4 MG TABLET SL PRN (22:16)
[2021-11-27] MEDS ORDERED: BENZOCAINE/MENTHOL (CHLORASEPTIC ) LOZENGE MM PRN (22:16)
[2021-11-27] MEDS ORDERED: LOPERAMIDE HCL 2 MG CAPSULE PO PRN (22:16)
[2021-11-27] MEDS ORDERED: IBUPROFEN 400 MG TABLET (FP) PO PRN (22:16)
[2021-11-27] MEDS ORDERED: IBUPROFEN 600 MG TABLET (FP) PO PRN (22:16)
[2021-11-27] MEDS ORDERED: DICYCLOMINE HCL 10 MG CAPSULE PO PRN (22:16)
[2021-11-27] MEDS ORDERED: LORazepam 1 MG TABLET PO PRN (22:20)
[2021-11-27] MEDS: LORazepam 2 MG TABLET PO SCH (23:47)
[2021-11-28] MEDS: LORazepam 2 MG TABLET PO SCH ×4 (06:22→22:22)
[2021-11-28] MEDS: PRENATAL VITAMINS W/ FOLIC ACID TABLET (FP) PO SCH (11:29)
[2021-11-28] MEDS: MAG HYDROX/AL HYDROX/SIMETH 30 ML UNIT-DOSE CUP PO PRN (18:10)
[2021-11-28] MEDS: amLODIPine BESYLATE 10 MG TABLET (FP) PO SCH (18:12)
[2021-11-28] MEDS: THIAMINE HCL 100 MG TABLET (FP) PO SCH (22:21)
[2021-11-28] MEDS: MELATONIN 5 MG TABLETS PO SCH (22:22)
[2021-11-29] MEDS: LORazepam 1 MG TABLET PO SCH ×4 (05:26→23:43)
[2021-11-29] MEDS: PRENATAL VITAMINS W/ FOLIC ACID TABLET (FP) PO SCH (10:39)
[2021-11-29] MEDS: LISINOPRIL 10 MG TABLET PO SCH ×2 (10:39→23:44)
[2021-11-29] MEDS: NAPROXEN 500 MG TABLET PO SCH ×2 (10:39→23:44)
[2021-11-29] MEDS: SODIUM CHLORIDE NASAL SPRAY 44 ML BOTTLE NS SCH (10:53)
[2021-11-29] MEDS: amLODIPine BESYLATE 10 MG TABLET (FP) PO SCH (12:14)
[2021-11-29] MEDS: HYDROCORTISONE 1% TOPICAL CREAM 30 GM TUBE TP SCH (12:14)
[2021-11-29] MEDS: ARTIFICIAL TEARS (POLYVINYL ALCOHOL) OPTH DROPS OU SCH ×2 (13:00→23:42)
[2021-11-29] MEDS: MAG HYDROX/AL HYDROX/SIMETH 30 ML UNIT-DOSE CUP PO PRN ×2 (13:01→19:47)
[2021-11-29] MEDS: GABAPENTIN 300 MG CAPSULE PO SCH ×2 (13:21→23:44)
[2021-11-29] MEDS: MELATONIN 5 MG TABLETS PO SCH (23:43)
[2021-11-29] MEDS: THIAMINE HCL 100 MG TABLET (FP) PO SCH (23:44)
[2021-11-30] MEDS ORDERED: LORazepam 0.5 MG TABLET PO PRN
[2021-11-30] MEDS: GABAPENTIN 300 MG CAPSULE PO SCH ×3 (05:24→22:57)
[2021-11-30] MEDS: LORazepam 0.5 MG TABLET PO SCH ×4 (05:25→22:59)
[2021-11-30] MEDS: ARTIFICIAL TEARS (POLYVINYL ALCOHOL) OPTH DROPS OU SCH ×3 (05:26→22:57)
[2021-11-30] MEDS: MAGNESIUM HYDROX 2400MG/30ML ORAL SUSPENSION 30 ML CUP PO PRN (05:27)
[2021-11-30] MEDS: PRENATAL VITAMINS W/ FOLIC ACID TABLET (FP) PO SCH (10:31)
[2021-11-30] MEDS: amLODIPine BESYLATE 10 MG TABLET (FP) PO SCH (10:31)
[2021-11-30] MEDS: NAPROXEN 500 MG TABLET PO SCH ×2 (10:31→22:57)
[2021-11-30] MEDS: HYDROCORTISONE 1% TOPICAL CREAM 30 GM TUBE TP SCH (10:32)
[2021-11-30] MEDS: SODIUM CHLORIDE NASAL SPRAY 44 ML BOTTLE NS SCH (10:32)
[2021-11-30] MEDS: LISINOPRIL 20 MG TABLET PO SCH (10:34)
[2021-11-30] MEDS: LISINOPRIL 10 MG TABLET PO SCH (11:48)
[2021-11-30] MEDS: MAG HYDROX/AL HYDROX/SIMETH 30 ML UNIT-DOSE CUP PO PRN (14:21)
[2021-11-30] MEDS: THIAMINE HCL 100 MG TABLET (FP) PO SCH (22:57)
[2021-11-30] MEDS: MELATONIN 5 MG TABLETS PO SCH (22:57)
[2021-12-01] MEDS ORDERED: LORazepam 0.5 MG TABLET PO ONE (05:00)
[2021-12-01] MEDS: GABAPENTIN 300 MG CAPSULE PO SCH ×2 (05:43→13:22)
[2021-12-01] MEDS: MAGNESIUM HYDROX 2400MG/30ML ORAL SUSPENSION 30 ML CUP PO PRN (05:43)
[2021-12-01] MEDS: ARTIFICIAL TEARS (POLYVINYL ALCOHOL) OPTH DROPS OU SCH ×2 (05:43→13:22)
[2021-12-01 06:05] VITALS: RESP 18
[2021-12-01 09:19] VITALS: PULSE 96
[2021-12-01] MEDS: SODIUM CHLORIDE NASAL SPRAY 44 ML BOTTLE NS SCH (10:07)
[2021-12-01] MEDS: HYDROCORTISONE 1% TOPICAL CREAM 30 GM TUBE TP SCH (10:07)
[2021-12-01] MEDS: amLODIPine BESYLATE 10 MG TABLET (FP) PO SCH (10:08)
[2021-12-01] MEDS: PRENATAL VITAMINS W/ FOLIC ACID TABLET (FP) PO SCH (10:08)
[2021-12-01] MEDS: LISINOPRIL 20 MG TABLET PO SCH (10:08)
[2021-12-01] MEDS: NAPROXEN 500 MG TABLET PO SCH (10:08)
[2021-12-01 13:46] VITALS: BP 141/79; TEMP 98.3
== END 2021-12-01 14:35 | disposition other institution (70) | DRG 775 ==
LOC: YASAS 19:47 → Y6N 22:19
PROVIDERS: ADMIT Allergy & Immunology; ATTEND Surgery
PROC: HZ2ZZZZ Detoxification Services for Substance Abuse Treatment (ICD-10-PCS; principal; 2021-11-27)
DX: F10.230 Alcohol dependence with withdrawal, uncomplicated (principal); F17.210 Nicotine dependence, cigarettes, uncomplicated; I10 Essential (primary) hypertension; K21.9 Gastro-esophageal reflux disease without esophagitis; G62.9 Polyneuropathy, unspecified; R00.0 Tachycardia, unspecified; Z88.0 Allergy status to penicillin; Z88.8 Allergy status to other drugs, medicaments and biological substances; Z86.11 Personal history of tuberculosis; Z86.19 Personal history of other infectious and parasitic diseases; Z28.310 Unvaccinated for COVID-19
CPT/HCPCS: 71046-TC-FY; C9803-CS; U0003; U0005

== ENCOUNTER 2021-12-01 14:49 | Inpatient (IN) | payer OTHER ==
[2021-12-01] MEDS ORDERED: LOPERAMIDE HCL 2 MG CAPSULE PO PRN (16:12)
[2021-12-01] MEDS ORDERED: IBUPROFEN 400 MG TABLET (FP) PO PRN (16:12)
[2021-12-01] MEDS ORDERED: NICOTINE 10 MG CARTRIDGE (INHALER) IH PRN (16:12)
[2021-12-01] MEDS ORDERED: hydrOXYzine PAMOATE 25 MG CAPSULE (FP) PO PRN (16:12)
[2021-12-01] MEDS ORDERED: P-EPHED 60MG/TRIPROLIDI 2.5MG TABLET PO PRN (16:12)
[2021-12-01] MEDS ORDERED: MAGNESIUM CITRATE 300 ML BOTTLE PO PRN (16:12)
[2021-12-01] MEDS ORDERED: guaiFENesin 200 MG/10 ML 10 ML UNIT-DOSE CUPS PO PRN (16:12)
[2021-12-01] MEDS: THIAMINE HCL 100 MG TABLET (FP) PO SCH (21:52)
[2021-12-01] MEDS: MELATONIN 5 MG TABLETS PO SCH (21:52)
[2021-12-02] MEDS: MAG HYDROX/AL HYDROX/SIMETH 30 ML UNIT-DOSE CUP PO PRN ×2 (06:15→17:32)
[2021-12-02] MEDS ORDERED: NICOTINE 7 MG/24 HOURS TOPICAL PATCH TD SCH (10:00)
[2021-12-02] MEDS: LISINOPRIL 20 MG TABLET PO SCH ×2 (12:31→22:04)
[2021-12-02] MEDS: FAMOTIDINE 20 MG TABLET PO SCH (12:31)
[2021-12-02] MEDS: NAPROXEN 500 MG TABLET PO SCH ×2 (12:32→22:04)
[2021-12-02] MEDS: FLUTICASONE PROP 0.05% 16 GM NASAL SPRAY NS SCH (12:33)
[2021-12-02] MEDS: HYDROCORTISONE 1% TOPICAL CREAM 30 GM TUBE TP SCH (12:33)
[2021-12-02] MEDS: BENZOCAINE/MENTHOL (CHLORASEPTIC ) LOZENGE MM PRN (12:34)
[2021-12-02] MEDS: ARTIFICIAL TEARS (POLYVINYL ALCOHOL) OPTH DROPS OU SCH ×2 (12:34→22:03)
[2021-12-02] MEDS: PRENATAL VITAMINS W/ FOLIC ACID TABLET (FP) PO SCH (12:34)
[2021-12-02] MEDS: PHENYLEPHRINE HCL/COCOA BUTTER SUPPOSITORY RC PRN ×2 (12:36→22:09)
[2021-12-02] MEDS: METHYL SALICYLATE/MENTHOL OINT 30 GM TUBE TP SCH ×2 (13:20→22:03)
[2021-12-02] MEDS ORDERED: GABAPENTIN 300 MG CAPSULE PO SCH (14:00)
[2021-12-02] MEDS: GABAPENTIN 300 MG CAPSULE PO SCH ×2 (14:38→22:05)
[2021-12-02] MEDS: MELATONIN 5 MG TABLETS PO SCH (22:04)
[2021-12-02] MEDS: THIAMINE HCL 100 MG TABLET (FP) PO SCH (22:05)
[2021-12-03] MEDS: FAMOTIDINE 20 MG TABLET PO SCH ×2 (06:55→17:52)
[2021-12-03] MEDS: GABAPENTIN 300 MG CAPSULE PO SCH ×3 (06:55→21:45)
[2021-12-03] MEDS: MAGNESIUM HYDROX 2400MG/30ML ORAL SUSPENSION 30 ML CUP PO PRN (06:58)
[2021-12-03] MEDS: FLUTICASONE PROP 0.05% 16 GM NASAL SPRAY NS SCH (09:59)
[2021-12-03] MEDS: HYDROCORTISONE 1% TOPICAL CREAM 30 GM TUBE TP SCH (10:00)
[2021-12-03] MEDS: METHYL SALICYLATE/MENTHOL OINT 30 GM TUBE TP SCH ×2 (10:00→21:46)
[2021-12-03] MEDS: NAPROXEN 500 MG TABLET PO SCH ×2 (10:01→21:46)
[2021-12-03] MEDS: PRENATAL VITAMINS W/ FOLIC ACID TABLET (FP) PO SCH (10:01)
[2021-12-03] MEDS: LISINOPRIL 20 MG TABLET PO SCH ×2 (10:01→21:46)
[2021-12-03] MEDS: PHENYLEPHRINE HCL/COCOA BUTTER SUPPOSITORY RC PRN (13:54)
[2021-12-03] MEDS: ACETAMINOPHEN 325 MG TABLET (FP) PO PRN (17:52)
[2021-12-03] MEDS: ARTIFICIAL TEARS (POLYVINYL ALCOHOL) OPTH DROPS OU SCH (17:55)
[2021-12-03] MEDS: THIAMINE HCL 100 MG TABLET (FP) PO SCH (21:45)
[2021-12-03] MEDS: MELATONIN 5 MG TABLETS PO SCH (21:46)
[2021-12-03] MEDS: MAG HYDROX/AL HYDROX/SIMETH 30 ML UNIT-DOSE CUP PO PRN (21:47)
[2021-12-04] MEDS: ARTIFICIAL TEARS (POLYVINYL ALCOHOL) OPTH DROPS OU SCH ×2 (06:13→18:17)
[2021-12-04] MEDS: GABAPENTIN 300 MG CAPSULE PO SCH ×3 (06:21→21:47)
[2021-12-04] MEDS: FAMOTIDINE 20 MG TABLET PO SCH ×2 (06:22→18:17)
[2021-12-04] MEDS: MAGNESIUM HYDROX 2400MG/30ML ORAL SUSPENSION 30 ML CUP PO PRN (06:25)
[2021-12-04] MEDS: BENZOCAINE/MENTHOL (CHLORASEPTIC ) LOZENGE MM PRN (06:25)
[2021-12-04] MEDS: FLUTICASONE PROP 0.05% 16 GM NASAL SPRAY NS SCH (10:06)
[2021-12-04] MEDS: NAPROXEN 500 MG TABLET PO SCH ×2 (10:06→21:45)
[2021-12-04] MEDS: PRENATAL VITAMINS W/ FOLIC ACID TABLET (FP) PO SCH (10:06)
[2021-12-04] MEDS: LISINOPRIL 20 MG TABLET PO SCH ×2 (10:06→21:46)
[2021-12-04] MEDS: METHYL SALICYLATE/MENTHOL OINT 30 GM TUBE TP SCH ×2 (10:07→21:44)
[2021-12-04] MEDS: HYDROCORTISONE 1% TOPICAL CREAM 30 GM TUBE TP SCH (10:07)
[2021-12-04] MEDS: ACETAMINOPHEN 325 MG TABLET (FP) PO PRN (13:58)
[2021-12-04] MEDS: MAG HYDROX/AL HYDROX/SIMETH 30 ML UNIT-DOSE CUP PO PRN (17:13)
[2021-12-04] MEDS: MELATONIN 5 MG TABLETS PO SCH (21:45)
[2021-12-04] MEDS: THIAMINE HCL 100 MG TABLET (FP) PO SCH (21:46)
[2021-12-04] MEDS: PHENYLEPHRINE HCL/COCOA BUTTER SUPPOSITORY RC PRN (21:48)
[2021-12-05] MEDS: FAMOTIDINE 20 MG TABLET PO SCH ×2 (06:30→18:02)
[2021-12-05] MEDS: ARTIFICIAL TEARS (POLYVINYL ALCOHOL) OPTH DROPS OU SCH ×2 (06:30→18:05)
[2021-12-05] MEDS: GABAPENTIN 300 MG CAPSULE PO SCH ×3 (06:30→21:29)
[2021-12-05] MEDS: MAGNESIUM HYDROX 2400MG/30ML ORAL SUSPENSION 30 ML CUP PO PRN (06:31)
[2021-12-05] MEDS: BENZOCAINE/MENTHOL (CHLORASEPTIC ) LOZENGE MM PRN (06:32)
[2021-12-05] MEDS: NAPROXEN 500 MG TABLET PO SCH ×2 (09:50→21:29)
[2021-12-05] MEDS: HYDROCORTISONE 1% TOPICAL CREAM 30 GM TUBE TP SCH (09:50)
[2021-12-05] MEDS: METHYL SALICYLATE/MENTHOL OINT 30 GM TUBE TP SCH ×2 (09:50→21:29)
[2021-12-05] MEDS: PRENATAL VITAMINS W/ FOLIC ACID TABLET (FP) PO SCH (09:50)
[2021-12-05] MEDS: FLUTICASONE PROP 0.05% 16 GM NASAL SPRAY NS SCH (09:50)
[2021-12-05] MEDS: LISINOPRIL 20 MG TABLET PO SCH ×2 (09:50→21:29)
[2021-12-05] MEDS: ACETAMINOPHEN 325 MG TABLET (FP) PO PRN (13:17)
[2021-12-05] MEDS: MAG HYDROX/AL HYDROX/SIMETH 30 ML UNIT-DOSE CUP PO PRN (16:51)
[2021-12-05] MEDS: MELATONIN 5 MG TABLETS PO SCH (21:29)
[2021-12-05] MEDS: THIAMINE HCL 100 MG TABLET (FP) PO SCH (21:29)
[2021-12-05] MEDS: PHENYLEPHRINE HCL/COCOA BUTTER SUPPOSITORY RC PRN (21:34)
[2021-12-06] MEDS: GABAPENTIN 300 MG CAPSULE PO SCH ×3 (06:30→21:50)
[2021-12-06] MEDS: ARTIFICIAL TEARS (POLYVINYL ALCOHOL) OPTH DROPS OU SCH ×2 (06:30→18:00)
[2021-12-06] MEDS: FAMOTIDINE 20 MG TABLET PO SCH ×2 (06:30→17:59)
[2021-12-06] MEDS: MAGNESIUM HYDROX 2400MG/30ML ORAL SUSPENSION 30 ML CUP PO PRN (06:32)
[2021-12-06] MEDS ORDERED: CARBAMIDE PEROXIDE 6.5% OTIC 15 ML BOTTLE AU ONE (10:00)
[2021-12-06] MEDS: NAPROXEN 500 MG TABLET PO SCH ×2 (10:39→21:50)
[2021-12-06] MEDS: LISINOPRIL 20 MG TABLET PO SCH ×2 (10:39→21:55)
[2021-12-06] MEDS: HYDROCORTISONE 1% TOPICAL CREAM 30 GM TUBE TP SCH (10:40)
[2021-12-06] MEDS: LIDOCAINE 5% TOPICAL PATCH TP SCH (10:40)
[2021-12-06] MEDS: METHYL SALICYLATE/MENTHOL OINT 30 GM TUBE TP SCH ×2 (10:41→21:50)
[2021-12-06] MEDS: FLUTICASONE PROP 0.05% 16 GM NASAL SPRAY NS SCH (10:41)
[2021-12-06] MEDS: PRENATAL VITAMINS W/ FOLIC ACID TABLET (FP) PO SCH (10:41)
[2021-12-06] MEDS: ACETAMINOPHEN 325 MG TABLET (FP) PO PRN ×2 (13:56→17:58)
[2021-12-06] MEDS: MAG HYDROX/AL HYDROX/SIMETH 30 ML UNIT-DOSE CUP PO PRN (13:56)
[2021-12-06] MEDS: THIAMINE HCL 100 MG TABLET (FP) PO SCH (21:50)
[2021-12-06] MEDS: MELATONIN 5 MG TABLETS PO SCH (21:55)
[2021-12-06] MEDS: LIDOCAINE PATCH REMOVAL MC SCH (21:55)
[2021-12-07] MEDS: ARTIFICIAL TEARS (POLYVINYL ALCOHOL) OPTH DROPS OU SCH ×2 (06:35→19:03)
[2021-12-07] MEDS: FAMOTIDINE 20 MG TABLET PO SCH ×2 (06:35→17:39)
[2021-12-07] MEDS: MAGNESIUM HYDROX 2400MG/30ML ORAL SUSPENSION 30 ML CUP PO PRN (06:36)
[2021-12-07] MEDS: GABAPENTIN 300 MG CAPSULE PO SCH ×3 (06:50→21:53)
[2021-12-07] MEDS: LIDOCAINE 5% TOPICAL PATCH TP SCH (10:10)
[2021-12-07] MEDS: PRENATAL VITAMINS W/ FOLIC ACID TABLET (FP) PO SCH (10:10)
[2021-12-07] MEDS: HYDROCORTISONE 1% TOPICAL CREAM 30 GM TUBE TP SCH (10:10)
[2021-12-07] MEDS: LISINOPRIL 20 MG TABLET PO SCH ×2 (10:10→21:53)
[2021-12-07] MEDS: METHYL SALICYLATE/MENTHOL OINT 30 GM TUBE TP SCH ×2 (11:01→21:54)
[2021-12-07] MEDS: NAPROXEN 500 MG TABLET PO SCH ×2 (12:03→21:54)
[2021-12-07] MEDS: MAG HYDROX/AL HYDROX/SIMETH 30 ML UNIT-DOSE CUP PO PRN (13:01)
[2021-12-07] MEDS: FLUTICASONE PROP 0.05% 16 GM NASAL SPRAY NS SCH (13:04)
[2021-12-07] MEDS: ACETAMINOPHEN 325 MG TABLET (FP) PO PRN (15:28)
[2021-12-07] MEDS: THIAMINE HCL 100 MG TABLET (FP) PO SCH (21:54)
[2021-12-07] MEDS: LIDOCAINE PATCH REMOVAL MC SCH (21:54)
[2021-12-07] MEDS: MELATONIN 5 MG TABLETS PO SCH (21:56)
[2021-12-08] MEDS: GABAPENTIN 300 MG CAPSULE PO SCH ×3 (06:18→22:00)
[2021-12-08] MEDS: ARTIFICIAL TEARS (POLYVINYL ALCOHOL) OPTH DROPS OU SCH ×2 (06:18→17:41)
[2021-12-08] MEDS: FAMOTIDINE 20 MG TABLET PO SCH ×2 (06:18→17:40)
[2021-12-08] MEDS: MAGNESIUM HYDROX 2400MG/30ML ORAL SUSPENSION 30 ML CUP PO PRN (06:19)
[2021-12-08] MEDS: LIDOCAINE 5% TOPICAL PATCH TP SCH (10:32)
[2021-12-08] MEDS: HYDROCORTISONE 1% TOPICAL CREAM 30 GM TUBE TP SCH (10:33)
[2021-12-08] MEDS: NAPROXEN 500 MG TABLET PO SCH ×2 (10:33→22:00)
[2021-12-08] MEDS: LISINOPRIL 20 MG TABLET PO SCH ×2 (10:33→22:00)
[2021-12-08] MEDS: PRENATAL VITAMINS W/ FOLIC ACID TABLET (FP) PO SCH (10:33)
[2021-12-08] MEDS: METHYL SALICYLATE/MENTHOL OINT 30 GM TUBE TP SCH ×2 (10:34→22:01)
[2021-12-08] MEDS: FLUTICASONE PROP 0.05% 16 GM NASAL SPRAY NS SCH (10:34)
[2021-12-08] MEDS: MAG HYDROX/AL HYDROX/SIMETH 30 ML UNIT-DOSE CUP PO PRN (14:09)
[2021-12-08] MEDS: ACETAMINOPHEN 325 MG TABLET (FP) PO PRN (14:09)
[2021-12-08] MEDS: THIAMINE HCL 100 MG TABLET (FP) PO SCH (22:00)
[2021-12-08] MEDS: MELATONIN 5 MG TABLETS PO SCH (22:00)
[2021-12-08] MEDS: LIDOCAINE PATCH REMOVAL MC SCH (22:00)
[2021-12-09] MEDS: GABAPENTIN 300 MG CAPSULE PO SCH ×3 (06:05→21:44)
[2021-12-09] MEDS: FAMOTIDINE 20 MG TABLET PO SCH ×2 (06:05→18:32)
[2021-12-09] MEDS: ARTIFICIAL TEARS (POLYVINYL ALCOHOL) OPTH DROPS OU SCH ×2 (06:05→18:33)
[2021-12-09] MEDS: MAGNESIUM HYDROX 2400MG/30ML ORAL SUSPENSION 30 ML CUP PO PRN (06:06)
[2021-12-09] MEDS ORDERED: cloNIDine HCL 0.1 MG TABLET PO PRN ×2 (10:34→10:39)
[2021-12-09] MEDS: METHYL SALICYLATE/MENTHOL OINT 30 GM TUBE TP SCH ×2 (10:45→21:43)
[2021-12-09] MEDS: HYDROCORTISONE 1% TOPICAL CREAM 30 GM TUBE TP SCH (10:46)
[2021-12-09] MEDS: SODIUM CHLORIDE NASAL SPRAY 44 ML BOTTLE NS PRN ×2 (10:46→10:52)
[2021-12-09] MEDS: LISINOPRIL 20 MG TABLET PO SCH ×2 (10:46→21:44)
[2021-12-09] MEDS: LIDOCAINE 5% TOPICAL PATCH TP SCH (10:47)
[2021-12-09] MEDS: FLUTICASONE PROP 0.05% 16 GM NASAL SPRAY NS SCH (10:47)
[2021-12-09] MEDS: cloNIDine HCL 0.1 MG TABLET PO PRN (10:50)
[2021-12-09] MEDS: PHENYLEPHRINE HCL/COCOA BUTTER SUPPOSITORY RC PRN (10:54)
[2021-12-09] MEDS ORDERED: THIAMINE HCL 100 MG TABLET (FP) PO SCH (11:15)
[2021-12-09] MEDS: PRENATAL VITAMINS W/ FOLIC ACID TABLET (FP) PO SCH ×2 (11:45→14:57)
[2021-12-09] MEDS: NAPROXEN 500 MG TABLET PO SCH ×2 (11:45→21:44)
[2021-12-09] MEDS: BISMUTH SUBSALICYLATE 524 MG/30 ML PO PRN (19:12)
[2021-12-09] MEDS: THIAMINE HCL 100 MG TABLET (FP) PO SCH (21:44)
[2021-12-09] MEDS: METHOCARBAMOL 500 MG TABLET PO PRN (21:44)
[2021-12-09] MEDS: LIDOCAINE PATCH REMOVAL MC SCH (21:44)
[2021-12-10] MEDS: ARTIFICIAL TEARS (POLYVINYL ALCOHOL) OPTH DROPS OU SCH ×2 (06:23→17:25)
[2021-12-10] MEDS: GABAPENTIN 300 MG CAPSULE PO SCH ×3 (06:24→22:03)
[2021-12-10] MEDS: FAMOTIDINE 20 MG TABLET PO SCH ×2 (06:24→17:24)
[2021-12-10] MEDS: LIDOCAINE 5% TOPICAL PATCH TP SCH (10:09)
[2021-12-10] MEDS: LISINOPRIL 20 MG TABLET PO SCH ×2 (10:10→22:03)
[2021-12-10] MEDS: PRENATAL VITAMINS W/ FOLIC ACID TABLET (FP) PO SCH (10:10)
[2021-12-10] MEDS: NAPROXEN 500 MG TABLET PO SCH ×2 (10:10→22:06)
[2021-12-10] MEDS: cloNIDine HCL 0.1 MG TABLET PO PRN (10:11)
[2021-12-10] MEDS: FLUTICASONE PROP 0.05% 16 GM NASAL SPRAY NS SCH (10:12)
[2021-12-10] MEDS: HYDROCORTISONE 1% TOPICAL CREAM 30 GM TUBE TP SCH (10:13)
[2021-12-10] MEDS: METHYL SALICYLATE/MENTHOL OINT 30 GM TUBE TP SCH ×2 (10:13→22:07)
[2021-12-10] MEDS: ACETAMINOPHEN 325 MG TABLET (FP) PO PRN (14:41)
[2021-12-10] MEDS: MULTIVITAMINS (DAILY MVI) TABLET (FP) PO SCH (14:45)
[2021-12-10] MEDS: BISMUTH SUBSALICYLATE 524 MG/30 ML PO PRN (15:45)
[2021-12-10] MEDS ORDERED: PHENYLEPHRINE HCL/COCOA BUTTER SUPPOSITORY RC SCH (20:00)
[2021-12-10] MEDS: THIAMINE HCL 100 MG TABLET (FP) PO SCH (22:04)
[2021-12-10] MEDS: METHOCARBAMOL 500 MG TABLET PO PRN (22:06)
[2021-12-10] MEDS: PHENYLEPHRINE HCL/COCOA BUTTER SUPPOSITORY RC SCH (22:07)
[2021-12-10] MEDS: LIDOCAINE PATCH REMOVAL MC SCH (22:07)
[2021-12-11] MEDS: ARTIFICIAL TEARS (POLYVINYL ALCOHOL) OPTH DROPS OU SCH ×2 (06:14→18:01)
[2021-12-11] MEDS: FAMOTIDINE 20 MG TABLET PO SCH ×2 (06:15→18:00)
[2021-12-11] MEDS: GABAPENTIN 300 MG CAPSULE PO SCH ×3 (06:15→21:27)
[2021-12-11] MEDS: MAGNESIUM HYDROX 2400MG/30ML ORAL SUSPENSION 30 ML CUP PO PRN (06:16)
[2021-12-11] MEDS: cloNIDine HCL 0.1 MG TABLET PO PRN (11:22)
[2021-12-11] MEDS: LISINOPRIL 20 MG TABLET PO SCH ×2 (11:22→21:27)
[2021-12-11] MEDS: NAPROXEN 500 MG TABLET PO SCH ×2 (11:23→21:27)
[2021-12-11] MEDS: LIDOCAINE 5% TOPICAL PATCH TP SCH (11:23)
[2021-12-11] MEDS: HYDROCORTISONE 1% TOPICAL CREAM 30 GM TUBE TP SCH (11:24)
[2021-12-11] MEDS: METHYL SALICYLATE/MENTHOL OINT 30 GM TUBE TP SCH ×2 (11:25→21:29)
[2021-12-11] MEDS: FLUTICASONE PROP 0.05% 16 GM NASAL SPRAY NS SCH (11:25)
[2021-12-11] MEDS: MULTIVITAMINS (DAILY MVI) TABLET (FP) PO SCH (11:25)
[2021-12-11] MEDS: MAG HYDROX/AL HYDROX/SIMETH 30 ML UNIT-DOSE CUP PO PRN (15:20)
[2021-12-11] MEDS: THIAMINE HCL 100 MG TABLET (FP) PO SCH (21:28)
[2021-12-11] MEDS: PHENYLEPHRINE HCL/COCOA BUTTER SUPPOSITORY RC SCH (21:28)
[2021-12-11] MEDS: LIDOCAINE PATCH REMOVAL MC SCH (21:29)
[2021-12-12] MEDS: ARTIFICIAL TEARS (POLYVINYL ALCOHOL) OPTH DROPS OU SCH ×2 (06:32→17:04)
[2021-12-12] MEDS: FAMOTIDINE 20 MG TABLET PO SCH ×2 (06:32→17:04)
[2021-12-12] MEDS: GABAPENTIN 300 MG CAPSULE PO SCH ×3 (06:32→21:44)
[2021-12-12] MEDS: ACETAMINOPHEN 325 MG TABLET (FP) PO PRN ×2 (06:34→15:11)
[2021-12-12] MEDS: NAPROXEN 500 MG TABLET PO SCH ×2 (10:50→21:44)
[2021-12-12] MEDS: LISINOPRIL 20 MG TABLET PO SCH ×2 (10:50→21:44)
[2021-12-12] MEDS: MULTIVITAMINS (DAILY MVI) TABLET (FP) PO SCH (10:50)
[2021-12-12] MEDS: LIDOCAINE 5% TOPICAL PATCH TP SCH (10:50)
[2021-12-12] MEDS: HYDROCORTISONE 1% TOPICAL CREAM 30 GM TUBE TP SCH (10:51)
[2021-12-12] MEDS: FLUTICASONE PROP 0.05% 16 GM NASAL SPRAY NS SCH (10:51)
[2021-12-12] MEDS: METHYL SALICYLATE/MENTHOL OINT 30 GM TUBE TP SCH ×2 (10:51→21:46)
[2021-12-12] MEDS: MAG HYDROX/AL HYDROX/SIMETH 30 ML UNIT-DOSE CUP PO PRN (17:03)
[2021-12-12] MEDS: THIAMINE HCL 100 MG TABLET (FP) PO SCH (21:44)
[2021-12-12] MEDS: PHENYLEPHRINE HCL/COCOA BUTTER SUPPOSITORY RC SCH (21:45)
[2021-12-12] MEDS: LIDOCAINE PATCH REMOVAL MC SCH (21:45)
[2021-12-13] MEDS: FAMOTIDINE 20 MG TABLET PO SCH ×2 (06:22→17:05)
[2021-12-13] MEDS: GABAPENTIN 300 MG CAPSULE PO SCH ×3 (06:22→21:38)
[2021-12-13] MEDS: ARTIFICIAL TEARS (POLYVINYL ALCOHOL) OPTH DROPS OU SCH ×2 (06:23→17:07)
[2021-12-13] MEDS: SODIUM CHLORIDE NASAL SPRAY 44 ML BOTTLE NS PRN (11:46)
[2021-12-13] MEDS: HYDROCORTISONE 1% TOPICAL CREAM 30 GM TUBE TP SCH (11:47)
[2021-12-13] MEDS: ACETAMINOPHEN 325 MG TABLET (FP) PO PRN ×2 (11:47→17:09)
[2021-12-13] MEDS: LISINOPRIL 20 MG TABLET PO SCH ×2 (11:48→21:39)
[2021-12-13] MEDS: LIDOCAINE 5% TOPICAL PATCH TP SCH (11:48)
[2021-12-13] MEDS: NAPROXEN 500 MG TABLET PO SCH ×2 (11:48→21:38)
[2021-12-13] MEDS: FLUTICASONE PROP 0.05% 16 GM NASAL SPRAY NS SCH (11:48)
[2021-12-13] MEDS: MULTIVITAMINS (DAILY MVI) TABLET (FP) PO SCH (11:51)
[2021-12-13] MEDS: METHYL SALICYLATE/MENTHOL OINT 30 GM TUBE TP SCH ×2 (12:53→21:39)
[2021-12-13] MEDS: METHOCARBAMOL 500 MG TABLET PO PRN (21:38)
[2021-12-13] MEDS: THIAMINE HCL 100 MG TABLET (FP) PO SCH (21:39)
[2021-12-13] MEDS: LIDOCAINE PATCH REMOVAL MC SCH (21:40)
[2021-12-13] MEDS: PHENYLEPHRINE HCL/COCOA BUTTER SUPPOSITORY RC SCH (21:40)
[2021-12-14] MEDS: ARTIFICIAL TEARS (POLYVINYL ALCOHOL) OPTH DROPS OU SCH ×2 (06:47→18:32)
[2021-12-14] MEDS: GABAPENTIN 300 MG CAPSULE PO SCH ×3 (06:48→21:29)
[2021-12-14] MEDS: ACETAMINOPHEN 325 MG TABLET (FP) PO PRN ×2 (06:48→17:18)
[2021-12-14] MEDS: FAMOTIDINE 20 MG TABLET PO SCH ×2 (06:48→17:17)
[2021-12-14 07:12] VITALS: RESP 18
[2021-12-14] MEDS: NAPROXEN 500 MG TABLET PO SCH ×2 (09:59→21:28)
[2021-12-14] MEDS: MULTIVITAMINS (DAILY MVI) TABLET (FP) PO SCH (09:59)
[2021-12-14] MEDS: LISINOPRIL 20 MG TABLET PO SCH ×2 (09:59→21:30)
[2021-12-14] MEDS: LIDOCAINE 5% TOPICAL PATCH TP SCH (10:00)
[2021-12-14] MEDS: HYDROCORTISONE 1% TOPICAL CREAM 30 GM TUBE TP SCH (10:01)
[2021-12-14] MEDS: FLUTICASONE PROP 0.05% 16 GM NASAL SPRAY NS SCH (10:01)
[2021-12-14] MEDS: METHYL SALICYLATE/MENTHOL OINT 30 GM TUBE TP SCH ×2 (10:01→21:28)
[2021-12-14] MEDS: SODIUM CHLORIDE NASAL SPRAY 44 ML BOTTLE NS PRN (18:29)
[2021-12-14] MEDS: THIAMINE HCL 100 MG TABLET (FP) PO SCH (21:30)
[2021-12-14] MEDS: METHOCARBAMOL 500 MG TABLET PO PRN (21:30)
[2021-12-14] MEDS: PHENYLEPHRINE HCL/COCOA BUTTER SUPPOSITORY RC SCH (21:32)
[2021-12-14] MEDS: LIDOCAINE PATCH REMOVAL MC SCH (21:32)
[2021-12-15] MEDS: GABAPENTIN 300 MG CAPSULE PO SCH ×3 (06:58→21:38)
[2021-12-15] MEDS: ACETAMINOPHEN 325 MG TABLET (FP) PO PRN ×3 (06:58→21:37)
[2021-12-15] MEDS: ARTIFICIAL TEARS (POLYVINYL ALCOHOL) OPTH DROPS OU SCH ×2 (06:58→17:16)
[2021-12-15] MEDS: FAMOTIDINE 20 MG TABLET PO SCH ×2 (06:58→17:14)
[2021-12-15] MEDS: LIDOCAINE 5% TOPICAL PATCH TP SCH (10:55)
[2021-12-15] MEDS: LISINOPRIL 20 MG TABLET PO SCH ×2 (10:55→21:38)
[2021-12-15] MEDS: NAPROXEN 500 MG TABLET PO SCH ×2 (10:56→21:38)
[2021-12-15] MEDS: METHYL SALICYLATE/MENTHOL OINT 30 GM TUBE TP SCH ×2 (10:56→21:36)
[2021-12-15] MEDS: FLUTICASONE PROP 0.05% 16 GM NASAL SPRAY NS SCH (10:56)
[2021-12-15] MEDS: SODIUM CHLORIDE NASAL SPRAY 44 ML BOTTLE NS PRN (10:56)
[2021-12-15] MEDS: MULTIVITAMINS (DAILY MVI) TABLET (FP) PO SCH (10:57)
[2021-12-15] MEDS: HYDROCORTISONE 1% TOPICAL CREAM 30 GM TUBE TP SCH (10:58)
[2021-12-15] MEDS: PHENYLEPHRINE HCL/COCOA BUTTER SUPPOSITORY RC SCH (21:36)
[2021-12-15] MEDS: THIAMINE HCL 100 MG TABLET (FP) PO SCH (21:37)
[2021-12-15] MEDS: LIDOCAINE PATCH REMOVAL MC SCH (21:38)
[2021-12-16] MEDS: FAMOTIDINE 20 MG TABLET PO SCH ×2 (06:52→17:28)
[2021-12-16] MEDS: GABAPENTIN 300 MG CAPSULE PO SCH ×3 (06:52→21:43)
[2021-12-16] MEDS: ARTIFICIAL TEARS (POLYVINYL ALCOHOL) OPTH DROPS OU SCH ×2 (06:53→17:28)
[2021-12-16] MEDS: ACETAMINOPHEN 325 MG TABLET (FP) PO PRN ×2 (06:54→16:40)
[2021-12-16] MEDS: MAGNESIUM HYDROX 2400MG/30ML ORAL SUSPENSION 30 ML CUP PO PRN (06:55)
[2021-12-16] MEDS: LISINOPRIL 20 MG TABLET PO SCH ×2 (10:09→21:43)
[2021-12-16] MEDS: NAPROXEN 500 MG TABLET PO SCH ×2 (10:09→21:43)
[2021-12-16] MEDS: METHYL SALICYLATE/MENTHOL OINT 30 GM TUBE TP SCH ×2 (10:09→21:44)
[2021-12-16] MEDS: LIDOCAINE 5% TOPICAL PATCH TP SCH (10:10)
[2021-12-16] MEDS: SODIUM CHLORIDE NASAL SPRAY 44 ML BOTTLE NS PRN (10:10)
[2021-12-16] MEDS: FLUTICASONE PROP 0.05% 16 GM NASAL SPRAY NS SCH (10:11)
[2021-12-16] MEDS: HYDROCORTISONE 1% TOPICAL CREAM 30 GM TUBE TP SCH (10:11)
[2021-12-16] MEDS: MULTIVITAMINS (DAILY MVI) TABLET (FP) PO SCH (10:11)
[2021-12-16] MEDS: MAG HYDROX/AL HYDROX/SIMETH 30 ML UNIT-DOSE CUP PO PRN (16:39)
[2021-12-16] MEDS: THIAMINE HCL 100 MG TABLET (FP) PO SCH (21:43)
[2021-12-16] MEDS: PHENYLEPHRINE HCL/COCOA BUTTER SUPPOSITORY RC SCH (21:44)
[2021-12-16] MEDS: LIDOCAINE PATCH REMOVAL MC SCH (21:44)
[2021-12-17] MEDS: GABAPENTIN 300 MG CAPSULE PO SCH ×4 (06:51→21:22)
[2021-12-17] MEDS: FAMOTIDINE 20 MG TABLET PO SCH ×2 (06:51→17:57)
[2021-12-17] MEDS: ACETAMINOPHEN 325 MG TABLET (FP) PO PRN ×2 (06:52→21:23)
[2021-12-17] MEDS: ARTIFICIAL TEARS (POLYVINYL ALCOHOL) OPTH DROPS OU SCH ×2 (06:52→17:57)
[2021-12-17] MEDS: LIDOCAINE 5% TOPICAL PATCH TP SCH (10:22)
[2021-12-17] MEDS: METHYL SALICYLATE/MENTHOL OINT 30 GM TUBE TP SCH ×2 (10:22→21:24)
[2021-12-17] MEDS: HYDROCORTISONE 1% TOPICAL CREAM 30 GM TUBE TP SCH (10:23)
[2021-12-17] MEDS: LISINOPRIL 20 MG TABLET PO SCH ×2 (10:23→21:22)
[2021-12-17] MEDS: MULTIVITAMINS (DAILY MVI) TABLET (FP) PO SCH (10:23)
[2021-12-17] MEDS: NAPROXEN 500 MG TABLET PO SCH ×2 (10:23→21:22)
[2021-12-17] MEDS: SODIUM CHLORIDE NASAL SPRAY 44 ML BOTTLE NS PRN (10:24)
[2021-12-17] MEDS: FLUTICASONE PROP 0.05% 16 GM NASAL SPRAY NS SCH (10:24)
[2021-12-17] MEDS ORDERED: DOCUSATE SODIUM 100 MG CAPSULE (FP) PO PRN (14:11)
[2021-12-17] MEDS: THIAMINE HCL 100 MG TABLET (FP) PO SCH (21:23)
[2021-12-17] MEDS: PHENYLEPHRINE HCL/COCOA BUTTER SUPPOSITORY RC SCH (21:23)
[2021-12-17] MEDS: LIDOCAINE PATCH REMOVAL MC SCH (21:24)
[2021-12-17] MEDS: METHOCARBAMOL 500 MG TABLET PO PRN (21:24)
[2021-12-18] MEDS: ARTIFICIAL TEARS (POLYVINYL ALCOHOL) OPTH DROPS OU SCH ×2 (06:02→18:59)
[2021-12-18] MEDS: MAG HYDROX/AL HYDROX/SIMETH 30 ML UNIT-DOSE CUP PO PRN (06:59)
[2021-12-18] MEDS: FAMOTIDINE 20 MG TABLET PO SCH ×2 (06:59→18:41)
[2021-12-18] MEDS: GABAPENTIN 300 MG CAPSULE PO SCH ×3 (06:59→22:01)
[2021-12-18] MEDS: ACETAMINOPHEN 325 MG TABLET (FP) PO PRN ×2 (07:00→14:24)
[2021-12-18] MEDS: LISINOPRIL 20 MG TABLET PO SCH ×2 (09:56→22:09)
[2021-12-18] MEDS: NAPROXEN 500 MG TABLET PO SCH ×2 (09:56→22:01)
[2021-12-18] MEDS: MULTIVITAMINS (DAILY MVI) TABLET (FP) PO SCH (09:56)
[2021-12-18] MEDS: HYDROCORTISONE 1% TOPICAL CREAM 30 GM TUBE TP SCH (09:57)
[2021-12-18] MEDS: LIDOCAINE 5% TOPICAL PATCH TP SCH (09:57)
[2021-12-18] MEDS: METHYL SALICYLATE/MENTHOL OINT 30 GM TUBE TP SCH ×2 (09:57→22:02)
[2021-12-18] MEDS: FLUTICASONE PROP 0.05% 16 GM NASAL SPRAY NS SCH (09:58)
[2021-12-18] MEDS: SODIUM CHLORIDE NASAL SPRAY 44 ML BOTTLE NS PRN (09:58)
[2021-12-18] MEDS: PHENYLEPHRINE HCL/COCOA BUTTER SUPPOSITORY RC SCH (22:02)
[2021-12-18] MEDS: SENNOSIDES 8.6MG TABLET (FP) PO PRN (22:03)
[2021-12-18] MEDS: METHOCARBAMOL 500 MG TABLET PO PRN (22:05)
[2021-12-18] MEDS: THIAMINE HCL 100 MG TABLET (FP) PO SCH (22:09)
[2021-12-18] MEDS: LIDOCAINE PATCH REMOVAL MC SCH (22:09)
[2021-12-19] MEDS: ARTIFICIAL TEARS (POLYVINYL ALCOHOL) OPTH DROPS OU SCH ×2 (07:06→17:51)
[2021-12-19] MEDS: FAMOTIDINE 20 MG TABLET PO SCH ×2 (07:06→17:51)
[2021-12-19] MEDS: GABAPENTIN 300 MG CAPSULE PO SCH ×3 (07:06→21:55)
[2021-12-19] MEDS: ACETAMINOPHEN 325 MG TABLET (FP) PO PRN (07:07)
[2021-12-19] MEDS: LISINOPRIL 20 MG TABLET PO SCH ×2 (10:40→21:55)
[2021-12-19] MEDS: METHYL SALICYLATE/MENTHOL OINT 30 GM TUBE TP SCH ×2 (10:41→21:57)
[2021-12-19] MEDS: FLUTICASONE PROP 0.05% 16 GM NASAL SPRAY NS SCH (10:41)
[2021-12-19] MEDS: HYDROCORTISONE 1% TOPICAL CREAM 30 GM TUBE TP SCH (10:42)
[2021-12-19] MEDS: LIDOCAINE 5% TOPICAL PATCH TP SCH (10:43)
[2021-12-19] MEDS: NAPROXEN 500 MG TABLET PO SCH ×2 (10:44→21:55)
[2021-12-19] MEDS: MULTIVITAMINS (DAILY MVI) TABLET (FP) PO SCH (11:00)
[2021-12-19] MEDS: MAG HYDROX/AL HYDROX/SIMETH 30 ML UNIT-DOSE CUP PO PRN (19:00)
[2021-12-19] MEDS: SENNOSIDES 8.6MG TABLET (FP) PO PRN (21:55)
[2021-12-19] MEDS: THIAMINE HCL 100 MG TABLET (FP) PO SCH (21:55)
[2021-12-19] MEDS: PHENYLEPHRINE HCL/COCOA BUTTER SUPPOSITORY RC SCH (21:56)
[2021-12-19] MEDS: METHOCARBAMOL 500 MG TABLET PO PRN (21:56)
[2021-12-19] MEDS: LIDOCAINE PATCH REMOVAL MC SCH (21:57)
[2021-12-20] MEDS: ARTIFICIAL TEARS (POLYVINYL ALCOHOL) OPTH DROPS OU SCH ×2 (06:27→17:15)
[2021-12-20] MEDS: GABAPENTIN 300 MG CAPSULE PO SCH ×3 (06:27→21:00)
[2021-12-20] MEDS: FAMOTIDINE 20 MG TABLET PO SCH ×2 (06:27→17:15)
[2021-12-20] MEDS: ACETAMINOPHEN 325 MG TABLET (FP) PO PRN ×2 (06:27→17:12)
[2021-12-20] MEDS: NAPROXEN 500 MG TABLET PO SCH ×2 (10:41→21:00)
[2021-12-20] MEDS: SENNOSIDES 8.6MG TABLET (FP) PO PRN (10:41)
[2021-12-20] MEDS: LISINOPRIL 20 MG TABLET PO SCH ×2 (10:42→21:00)
[2021-12-20] MEDS: METHYL SALICYLATE/MENTHOL OINT 30 GM TUBE TP SCH ×2 (10:42→21:01)
[2021-12-20] MEDS: SODIUM CHLORIDE NASAL SPRAY 44 ML BOTTLE NS PRN (10:43)
[2021-12-20] MEDS: LIDOCAINE 5% TOPICAL PATCH TP SCH (10:44)
[2021-12-20] MEDS: HYDROCORTISONE 1% TOPICAL CREAM 30 GM TUBE TP SCH (10:45)
[2021-12-20] MEDS: MULTIVITAMINS (DAILY MVI) TABLET (FP) PO SCH (10:45)
[2021-12-20] MEDS: MAGNESIUM HYDROX 2400MG/30ML ORAL SUSPENSION 30 ML CUP PO PRN (10:48)
[2021-12-20] MEDS: FLUTICASONE PROP 0.05% 16 GM NASAL SPRAY NS SCH (10:50)
[2021-12-20] MEDS: MAG HYDROX/AL HYDROX/SIMETH 30 ML UNIT-DOSE CUP PO PRN (14:17)
[2021-12-20] MEDS: THIAMINE HCL 100 MG TABLET (FP) PO SCH (21:00)
[2021-12-20] MEDS: PHENYLEPHRINE HCL/COCOA BUTTER SUPPOSITORY RC SCH (21:01)
[2021-12-20] MEDS: LIDOCAINE PATCH REMOVAL MC SCH (21:01)
[2021-12-21] MEDS: ARTIFICIAL TEARS (POLYVINYL ALCOHOL) OPTH DROPS OU SCH (06:21)
[2021-12-21] MEDS: ACETAMINOPHEN 325 MG TABLET (FP) PO PRN (06:31)
[2021-12-21] MEDS: GABAPENTIN 300 MG CAPSULE PO SCH (06:32)
[2021-12-21] MEDS: FAMOTIDINE 20 MG TABLET PO SCH (06:32)
[2021-12-21 07:10] VITALS: BP 140/78; PULSE 72; TEMP 98.2
[2021-12-21] MEDS: LIDOCAINE 5% TOPICAL PATCH TP SCH (09:35)
[2021-12-21] MEDS: LISINOPRIL 20 MG TABLET PO SCH (09:36)
[2021-12-21] MEDS: MULTIVITAMINS (DAILY MVI) TABLET (FP) PO SCH (09:36)
[2021-12-21] MEDS: METHYL SALICYLATE/MENTHOL OINT 30 GM TUBE TP SCH (09:36)
[2021-12-21] MEDS: NAPROXEN 500 MG TABLET PO SCH (09:36)
[2021-12-21] MEDS: FLUTICASONE PROP 0.05% 16 GM NASAL SPRAY NS SCH (09:36)
[2021-12-21] MEDS: HYDROCORTISONE 1% TOPICAL CREAM 30 GM TUBE TP SCH (09:37)
== END 2021-12-21 09:54 | disposition home or self-care (01) | DRG 772 ==
LOC: YASAS 14:49 → Y3E 14:52 → Y3W 15:51
PROVIDERS: ADMIT Allergy & Immunology; ATTEND Psychiatry & Neurology Pain Medicine
PROC: HZ42ZZZ Group Counseling for Substance Abuse Treatment, Cognitive-Behavioral (ICD-10-PCS; principal; 2021-12-01)
DX: F10.20 Alcohol dependence, uncomplicated (principal); F17.210 Nicotine dependence, cigarettes, uncomplicated; G62.9 Polyneuropathy, unspecified; I10 Essential (primary) hypertension; K64.9 Unspecified hemorrhoids; K21.9 Gastro-esophageal reflux disease without esophagitis; H61.22 Impacted cerumen, left ear; M25.552 Pain in left hip; M54.50 Low back pain, unspecified; G89.29 Other chronic pain; Z86.19 Personal history of other infectious and parasitic diseases; Z59.01 Sheltered homelessness; Z88.0 Allergy status to penicillin; Z88.7 Allergy status to serum and vaccine
CPT/HCPCS: J0735

== ENCOUNTER 2022-01-17 16:58 | Inpatient (IN) | payer OTHER ==
[2022-01-17 18:07] VITALS: BMI 27.7
[2022-01-17] MEDS ORDERED: ACETAMINOPHEN 325 MG TABLET (FP) PO PRN (20:37)
[2022-01-17] MEDS ORDERED: METHOCARBAMOL 500 MG TABLET PO PRN (20:37)
[2022-01-17] MEDS ORDERED: hydrOXYzine PAMOATE 25 MG CAPSULE (FP) PO PRN (20:37)
[2022-01-17] MEDS ORDERED: MELATONIN 5 MG TABLETS PO PRN (20:37)
[2022-01-17] MEDS ORDERED: DICYCLOMINE HCL 10 MG CAPSULE PO PRN (20:37)
[2022-01-17] MEDS ORDERED: P-EPHED 60MG/TRIPROLIDI 2.5MG TABLET PO PRN (20:37)
[2022-01-17] MEDS ORDERED: ONDANSETRON *ODT* 4 MG TABLET SL PRN (20:37)
[2022-01-17] MEDS ORDERED: MAGNESIUM HYDROX 2400MG/30ML ORAL SUSPENSION 30 ML CUP PO PRN (20:37)
[2022-01-17] MEDS ORDERED: BISMUTH SUBSALICYLATE 524 MG/30 ML PO PRN (20:37)
[2022-01-17] MEDS ORDERED: MAGNESIUM CITRATE 300 ML BOTTLE PO PRN (20:37)
[2022-01-17] MEDS ORDERED: LOPERAMIDE HCL 2 MG CAPSULE PO PRN (20:37)
[2022-01-17] MEDS ORDERED: diazePAM 5 MG TABLET PO PRN (20:41)
[2022-01-17] MEDS: FAMOTIDINE 20 MG TABLET PO SCH (22:38)
[2022-01-17] MEDS: LISINOPRIL 20 MG TABLET PO SCH (22:38)
[2022-01-17] MEDS: NAPROXEN 500 MG TABLET PO SCH (22:38)
[2022-01-17] MEDS: GABAPENTIN 300 MG CAPSULE PO SCH (22:38)
[2022-01-17] MEDS: THIAMINE HCL 100 MG TABLET (FP) PO SCH (22:38)
[2022-01-17] MEDS: diazePAM 5 MG TABLET PO SCH (22:38)
[2022-01-17] MEDS: ARTIFICIAL TEARS (POLYVINYL ALCOHOL) OPTH DROPS OU SCH (22:38)
[2022-01-18] MEDS: diazePAM 5 MG TABLET PO SCH ×4 (07:20→23:25)
[2022-01-18] MEDS: GABAPENTIN 300 MG CAPSULE PO SCH ×3 (07:20→23:24)
[2022-01-18] MEDS: FLUTICASONE PROP 0.05% 16 GM NASAL SPRAY NS SCH (10:23)
[2022-01-18] MEDS: ARTIFICIAL TEARS (POLYVINYL ALCOHOL) OPTH DROPS OU SCH ×2 (10:23→23:23)
[2022-01-18] MEDS: FAMOTIDINE 20 MG TABLET PO SCH ×2 (10:23→23:23)
[2022-01-18] MEDS: LISINOPRIL 20 MG TABLET PO SCH ×2 (10:24→23:24)
[2022-01-18] MEDS: NAPROXEN 500 MG TABLET PO SCH ×2 (10:24→23:24)
[2022-01-18] MEDS: PRENATAL VITAMINS W/ FOLIC ACID TABLET (FP) PO SCH (10:24)
[2022-01-18 11:34] LABS: HEMATOCRIT 37.1 % (35.4-49); HEMOGLOBIN 12.8 GM/dL (11.7-16.9); MCH 32.4 pg (25.7-33.7); MCHC 34.6 g/dl (32.0-35.9); MEAN CELL VOLUME 93.7 fl (80-96); MEAN PLT VOLUME 9.3 fl (7.5-11.1); PLATELET COUNT 202 10^3/uL (134-434); RBC 3.96 M/mm3 (4.00-5.60); RDW 14.1 % (11.9-15.9); WHITE BLOOD COUNT 7.6 K/mm3 (4.0-10.0)
[2022-01-18 11:35] LABS: CALCIUM 8.7 mg/dL (8.5-10.1)
[2022-01-18 11:36] LABS: ALBUMIN 3.6 g/dl (3.4-5.0)
[2022-01-18 11:39] LABS: CREATININE 0.9 mg/dL (0.55-1.3)
[2022-01-18 11:40] LABS: BILIRUBIN,TOTAL 1.3 mg/dL (0.2-1)
[2022-01-18 11:41] LABS: TOT PROT 6.5 g/dl (6.4-8.2)
[2022-01-18] MEDS: THIAMINE HCL 100 MG TABLET (FP) PO SCH (23:24)
[2022-01-19] MEDS: diazePAM 5 MG TABLET PO SCH ×3 (06:17→22:45)
[2022-01-19] MEDS: GABAPENTIN 300 MG CAPSULE PO SCH ×3 (06:17→22:46)
[2022-01-19] MEDS: FAMOTIDINE 20 MG TABLET PO SCH ×2 (07:19→22:46)
[2022-01-19] MEDS: ARTIFICIAL TEARS (POLYVINYL ALCOHOL) OPTH DROPS OU SCH ×2 (10:47→22:46)
[2022-01-19] MEDS: FLUTICASONE PROP 0.05% 16 GM NASAL SPRAY NS SCH (10:47)
[2022-01-19] MEDS: PRENATAL VITAMINS W/ FOLIC ACID TABLET (FP) PO SCH (10:47)
[2022-01-19] MEDS: LISINOPRIL 20 MG TABLET PO SCH ×2 (10:48→22:46)
[2022-01-19] MEDS: NAPROXEN 500 MG TABLET PO SCH ×2 (10:48→22:46)
[2022-01-19] MEDS: MAG HYDROX/AL HYDROX/SIMETH 30 ML UNIT-DOSE CUP PO PRN (14:35)
[2022-01-19] MEDS: THIAMINE HCL 100 MG TABLET (FP) PO SCH (22:46)
[2022-01-20] MEDS: diazePAM 5 MG TABLET PO SCH ×2 (05:45→18:18)
[2022-01-20] MEDS: GABAPENTIN 300 MG CAPSULE PO SCH ×3 (05:46→23:36)
[2022-01-20] MEDS: BENZOCAINE/MENTHOL (CHLORASEPTIC ) LOZENGE MM PRN (05:47)
[2022-01-20] MEDS: FAMOTIDINE 20 MG TABLET PO SCH ×2 (07:43→23:36)
[2022-01-20] MEDS: LISINOPRIL 20 MG TABLET PO SCH ×2 (10:42→23:37)
[2022-01-20] MEDS: ARTIFICIAL TEARS (POLYVINYL ALCOHOL) OPTH DROPS OU SCH ×2 (10:42→23:36)
[2022-01-20] MEDS: NAPROXEN 500 MG TABLET PO SCH ×2 (10:42→23:36)
[2022-01-20] MEDS: FLUTICASONE PROP 0.05% 16 GM NASAL SPRAY NS SCH (10:43)
[2022-01-20] MEDS: PRENATAL VITAMINS W/ FOLIC ACID TABLET (FP) PO SCH (10:43)
[2022-01-20] MEDS: MAG HYDROX/AL HYDROX/SIMETH 30 ML UNIT-DOSE CUP PO PRN (14:15)
[2022-01-20] MEDS: ACETAMINOPHEN 325 MG TABLET (FP) PO PRN (15:09)
[2022-01-20] MEDS ORDERED: HYDROCORTISONE 2.5% TOPICAL CREAM 30 GM TUBE TP PRN (17:40)
[2022-01-20] MEDS: THIAMINE HCL 100 MG TABLET (FP) PO SCH (23:37)
[2022-01-21] MEDS: GABAPENTIN 300 MG CAPSULE PO SCH ×2 (05:40→13:53)
[2022-01-21] MEDS: guaiFENesin 200 MG/10 ML 10 ML UNIT-DOSE CUPS PO PRN ×3 (05:40→16:37)
[2022-01-21] MEDS ORDERED: diazePAM 5 MG TABLET PO ONE (06:00)
[2022-01-21] MEDS: FAMOTIDINE 20 MG TABLET PO SCH (07:16)
[2022-01-21 09:14] VITALS: RESP 18
[2022-01-21] MEDS: PRENATAL VITAMINS W/ FOLIC ACID TABLET (FP) PO SCH (10:26)
[2022-01-21] MEDS: FLUTICASONE PROP 0.05% 16 GM NASAL SPRAY NS SCH (10:27)
[2022-01-21] MEDS: ARTIFICIAL TEARS (POLYVINYL ALCOHOL) OPTH DROPS OU SCH (10:27)
[2022-01-21] MEDS: LISINOPRIL 20 MG TABLET PO SCH (10:28)
[2022-01-21] MEDS: NAPROXEN 500 MG TABLET PO SCH (10:28)
[2022-01-21] MEDS: BENZOCAINE/MENTHOL (CHLORASEPTIC ) LOZENGE MM PRN ×2 (10:29→16:37)
[2022-01-21] MEDS: ACETAMINOPHEN 325 MG TABLET (FP) PO PRN (13:54)
[2022-01-21 17:21] VITALS: BP 139/82; PULSE 98; TEMP 97.7
== END 2022-01-21 17:44 | disposition other institution (70) | DRG 775 ==
LOC: YASAS 16:58 → Y3N 20:53
PROVIDERS: ADMIT Allergy & Immunology; ATTEND Surgery
PROC: HZ2ZZZZ Detoxification Services for Substance Abuse Treatment (ICD-10-PCS; principal; 2022-01-17)
DX: F10.230 Alcohol dependence with withdrawal, uncomplicated (principal); F17.210 Nicotine dependence, cigarettes, uncomplicated; G62.9 Polyneuropathy, unspecified; I10 Essential (primary) hypertension; K21.9 Gastro-esophageal reflux disease without esophagitis; K64.9 Unspecified hemorrhoids; Z86.19 Personal history of other infectious and parasitic diseases; Z88.0 Allergy status to penicillin; Z88.7 Allergy status to serum and vaccine; Z28.310 Unvaccinated for COVID-19; Z28.9 Immunization not carried out for unspecified reason
CPT/HCPCS: 36415; 80053; 85027; 86593; 86780; C9803-CS; U0003; U0005

== ENCOUNTER 2022-01-21 18:28 | Inpatient (IN) | payer OTHER ==
[2022-01-21] MEDS ORDERED: NICOTINE 10 MG CARTRIDGE (INHALER) IH PRN (19:08)
[2022-01-21] MEDS ORDERED: LOPERAMIDE HCL 2 MG CAPSULE PO PRN (19:08)
[2022-01-21] MEDS ORDERED: P-EPHED 60MG/TRIPROLIDI 2.5MG TABLET PO PRN (19:08)
[2022-01-21] MEDS ORDERED: MAGNESIUM CITRATE 300 ML BOTTLE PO PRN (19:08)
[2022-01-21] MEDS ORDERED: IBUPROFEN 400 MG TABLET (FP) PO PRN (19:08)
[2022-01-21] MEDS: THIAMINE HCL 100 MG TABLET (FP) PO SCH (22:21)
[2022-01-21] MEDS: MELATONIN 5 MG TABLETS PO SCH (22:21)
[2022-01-22] MEDS: guaiFENesin 200 MG/10 ML 10 ML UNIT-DOSE CUPS PO PRN ×3 (02:32→18:20)
[2022-01-22] MEDS: BENZOCAINE/MENTHOL (CHLORASEPTIC ) LOZENGE MM PRN ×3 (02:32→18:19)
[2022-01-22] MEDS: ACETAMINOPHEN 325 MG TABLET (FP) PO PRN ×3 (07:13→18:15)
[2022-01-22] MEDS: PRENATAL VITAMINS W/ FOLIC ACID TABLET (FP) PO SCH (10:21)
[2022-01-22] MEDS: FAMOTIDINE 20 MG TABLET PO SCH ×2 (10:21→21:38)
[2022-01-22] MEDS: LISINOPRIL 20 MG TABLET PO SCH ×2 (10:21→21:38)
[2022-01-22] MEDS: NICOTINE 7 MG/24 HOURS TOPICAL PATCH TD SCH (10:22)
[2022-01-22] MEDS: FLUTICASONE PROP 0.05% 16 GM NASAL SPRAY NS SCH (10:22)
[2022-01-22] MEDS: ARTIFICIAL TEARS (POLYVINYL ALCOHOL) OPTH DROPS OU SCH ×2 (10:22→21:40)
[2022-01-22] MEDS ORDERED: WITCH HAZEL 50% (TUCKS) 40 PAD/JAR PAD TP PRN (11:45)
[2022-01-22] MEDS: GABAPENTIN 300 MG CAPSULE PO SCH ×2 (13:50→21:37)
[2022-01-22] MEDS: HYDROCORTISONE 2.5% TOPICAL CREAM 30 GM TUBE TP SCH ×2 (14:54→21:39)
[2022-01-22] MEDS: METHYL SALICYLATE/MENTHOL OINT 30 GM TUBE TP SCH ×2 (14:57→21:47)
[2022-01-22] MEDS: THIAMINE HCL 100 MG TABLET (FP) PO SCH (21:38)
[2022-01-22] MEDS: MELATONIN 5 MG TABLETS PO SCH (21:39)
[2022-01-23] MEDS: guaiFENesin 200 MG/10 ML 10 ML UNIT-DOSE CUPS PO PRN ×2 (02:40→13:46)
[2022-01-23] MEDS: BENZOCAINE/MENTHOL (CHLORASEPTIC ) LOZENGE MM PRN ×2 (02:40→13:49)
[2022-01-23] MEDS: ACETAMINOPHEN 325 MG TABLET (FP) PO PRN ×2 (02:40→13:47)
[2022-01-23] MEDS: GABAPENTIN 300 MG CAPSULE PO SCH ×3 (06:25→22:21)
[2022-01-23] MEDS: LISINOPRIL 20 MG TABLET PO SCH ×2 (10:12→22:22)
[2022-01-23] MEDS: ARTIFICIAL TEARS (POLYVINYL ALCOHOL) OPTH DROPS OU SCH ×2 (10:13→22:21)
[2022-01-23] MEDS: NICOTINE 7 MG/24 HOURS TOPICAL PATCH TD SCH (10:13)
[2022-01-23] MEDS: PRENATAL VITAMINS W/ FOLIC ACID TABLET (FP) PO SCH (10:13)
[2022-01-23] MEDS: FAMOTIDINE 20 MG TABLET PO SCH ×2 (10:13→22:21)
[2022-01-23] MEDS: FLUTICASONE PROP 0.05% 16 GM NASAL SPRAY NS SCH (10:13)
[2022-01-23] MEDS: HYDROCORTISONE 2.5% TOPICAL CREAM 30 GM TUBE TP SCH ×2 (10:14→22:21)
[2022-01-23] MEDS: METHYL SALICYLATE/MENTHOL OINT 30 GM TUBE TP SCH ×2 (10:15→22:21)
[2022-01-23] MEDS: NAPROXEN 500 MG TABLET PO SCH (22:21)
[2022-01-23] MEDS: MELATONIN 5 MG TABLETS PO SCH (22:22)
[2022-01-23] MEDS: THIAMINE HCL 100 MG TABLET (FP) PO SCH (22:22)
[2022-01-24] MEDS: guaiFENesin 200 MG/10 ML 10 ML UNIT-DOSE CUPS PO PRN (02:20)
[2022-01-24] MEDS: ACETAMINOPHEN 325 MG TABLET (FP) PO PRN ×2 (02:20→10:21)
[2022-01-24] MEDS: BENZOCAINE/MENTHOL (CHLORASEPTIC ) LOZENGE MM PRN (02:22)
[2022-01-24] MEDS: FAMOTIDINE 20 MG TABLET PO SCH ×2 (06:25→17:17)
[2022-01-24] MEDS: GABAPENTIN 300 MG CAPSULE PO SCH ×3 (06:25→21:04)
[2022-01-24] MEDS: ARTIFICIAL TEARS (POLYVINYL ALCOHOL) OPTH DROPS OU SCH ×2 (09:59→21:05)
[2022-01-24] MEDS: NAPROXEN 500 MG TABLET PO SCH (09:59)
[2022-01-24] MEDS: LISINOPRIL 20 MG TABLET PO SCH ×2 (10:00→21:04)
[2022-01-24] MEDS: HYDROCORTISONE 2.5% TOPICAL CREAM 30 GM TUBE TP SCH ×2 (10:00→21:31)
[2022-01-24] MEDS: FLUTICASONE PROP 0.05% 16 GM NASAL SPRAY NS SCH (10:01)
[2022-01-24] MEDS: NICOTINE 7 MG/24 HOURS TOPICAL PATCH TD SCH (10:01)
[2022-01-24] MEDS: PRENATAL VITAMINS W/ FOLIC ACID TABLET (FP) PO SCH (10:01)
[2022-01-24] MEDS: METHYL SALICYLATE/MENTHOL OINT 30 GM TUBE TP SCH ×2 (10:01→21:05)
[2022-01-24] MEDS ORDERED: LIDOCAINE 5% TOPICAL PATCH TP ONE (15:56)
[2022-01-24] MEDS: THIAMINE HCL 100 MG TABLET (FP) PO SCH (21:04)
[2022-01-24] MEDS: MELATONIN 5 MG TABLETS PO SCH (21:04)
[2022-01-24] MEDS: LIDOCAINE PATCH REMOVAL MC SCH (21:05)
[2022-01-24] MEDS ORDERED: LIDOCAINE PATCH REMOVAL MC SCH (22:00)
[2022-01-25] MEDS: ACETAMINOPHEN 325 MG TABLET (FP) PO PRN ×2 (01:34→13:19)
[2022-01-25] MEDS: guaiFENesin 200 MG/10 ML 10 ML UNIT-DOSE CUPS PO PRN ×2 (01:34→13:20)
[2022-01-25] MEDS: BENZOCAINE/MENTHOL (CHLORASEPTIC ) LOZENGE MM PRN (01:35)
[2022-01-25] MEDS: GABAPENTIN 300 MG CAPSULE PO SCH ×3 (06:15→21:23)
[2022-01-25] MEDS: FAMOTIDINE 20 MG TABLET PO SCH ×2 (06:15→17:50)
[2022-01-25] MEDS: PRENATAL VITAMINS W/ FOLIC ACID TABLET (FP) PO SCH (10:44)
[2022-01-25] MEDS: NICOTINE 7 MG/24 HOURS TOPICAL PATCH TD SCH (10:44)
[2022-01-25] MEDS: LISINOPRIL 20 MG TABLET PO SCH ×2 (10:44→21:22)
[2022-01-25] MEDS: HYDROCORTISONE 2.5% TOPICAL CREAM 30 GM TUBE TP SCH ×2 (10:45→21:23)
[2022-01-25] MEDS: METHYL SALICYLATE/MENTHOL OINT 30 GM TUBE TP SCH ×2 (10:47→21:23)
[2022-01-25] MEDS: FLUTICASONE PROP 0.05% 16 GM NASAL SPRAY NS SCH (10:47)
[2022-01-25] MEDS: NAPROXEN 500 MG TABLET PO PRN ×2 (10:47→21:24)
[2022-01-25] MEDS: ARTIFICIAL TEARS (POLYVINYL ALCOHOL) OPTH DROPS OU SCH ×2 (10:47→21:23)
[2022-01-25] MEDS: LIDOCAINE 5% TOPICAL PATCH TP SCH (10:48)
[2022-01-25] MEDS: THIAMINE HCL 100 MG TABLET (FP) PO SCH (21:22)
[2022-01-25] MEDS: LIDOCAINE PATCH REMOVAL MC SCH (21:23)
[2022-01-25] MEDS: MELATONIN 5 MG TABLETS PO SCH (21:25)
[2022-01-26] MEDS: GABAPENTIN 300 MG CAPSULE PO SCH ×3 (06:25→21:37)
[2022-01-26] MEDS: ACETAMINOPHEN 325 MG TABLET (FP) PO PRN ×3 (06:25→17:40)
[2022-01-26] MEDS: FAMOTIDINE 20 MG TABLET PO SCH ×2 (06:25→17:40)
[2022-01-26] MEDS: BENZOCAINE/MENTHOL (CHLORASEPTIC ) LOZENGE MM PRN (06:27)
[2022-01-26] MEDS: PRENATAL VITAMINS W/ FOLIC ACID TABLET (FP) PO SCH (10:22)
[2022-01-26] MEDS: LIDOCAINE 5% TOPICAL PATCH TP SCH (10:22)
[2022-01-26] MEDS: LISINOPRIL 20 MG TABLET PO SCH ×2 (10:22→21:37)
[2022-01-26] MEDS: HYDROCORTISONE 2.5% TOPICAL CREAM 30 GM TUBE TP SCH ×2 (10:23→21:36)
[2022-01-26] MEDS: METHYL SALICYLATE/MENTHOL OINT 30 GM TUBE TP SCH ×2 (10:23→21:38)
[2022-01-26] MEDS: FLUTICASONE PROP 0.05% 16 GM NASAL SPRAY NS SCH (10:23)
[2022-01-26] MEDS: NICOTINE 7 MG/24 HOURS TOPICAL PATCH TD SCH (10:23)
[2022-01-26] MEDS: ARTIFICIAL TEARS (POLYVINYL ALCOHOL) OPTH DROPS OU SCH ×2 (10:23→21:36)
[2022-01-26] MEDS: NAPROXEN 500 MG TABLET PO PRN ×2 (10:24→21:36)
[2022-01-26] MEDS: guaiFENesin 200 MG/10 ML 10 ML UNIT-DOSE CUPS PO PRN (10:24)
[2022-01-26] MEDS: THIAMINE HCL 100 MG TABLET (FP) PO SCH (21:37)
[2022-01-26] MEDS: LIDOCAINE PATCH REMOVAL MC SCH (21:38)
[2022-01-26] MEDS: CARBAMIDE PEROXIDE 6.5% OTIC 15 ML BOTTLE AU SCH (21:38)
[2022-01-26] MEDS: MELATONIN 5 MG TABLETS PO SCH (21:44)
[2022-01-27] MEDS: ACETAMINOPHEN 325 MG TABLET (FP) PO PRN ×2 (03:28→13:24)
[2022-01-27] MEDS: BENZOCAINE/MENTHOL (CHLORASEPTIC ) LOZENGE MM PRN (03:29)
[2022-01-27] MEDS: guaiFENesin 200 MG/10 ML 10 ML UNIT-DOSE CUPS PO PRN (03:29)
[2022-01-27] MEDS: FAMOTIDINE 20 MG TABLET PO SCH ×2 (06:21→18:16)
[2022-01-27] MEDS: GABAPENTIN 300 MG CAPSULE PO SCH ×3 (06:21→21:12)
[2022-01-27] MEDS: HYDROCORTISONE 2.5% TOPICAL CREAM 30 GM TUBE TP SCH ×2 (09:50→21:13)
[2022-01-27] MEDS: CARBAMIDE PEROXIDE 6.5% OTIC 15 ML BOTTLE AU SCH ×2 (09:51→21:13)
[2022-01-27] MEDS: METHYL SALICYLATE/MENTHOL OINT 30 GM TUBE TP SCH ×2 (09:51→21:13)
[2022-01-27] MEDS: ARTIFICIAL TEARS (POLYVINYL ALCOHOL) OPTH DROPS OU SCH ×2 (09:51→21:13)
[2022-01-27] MEDS: FLUTICASONE PROP 0.05% 16 GM NASAL SPRAY NS SCH (09:53)
[2022-01-27] MEDS: LIDOCAINE 5% TOPICAL PATCH TP SCH (09:53)
[2022-01-27] MEDS: NICOTINE 7 MG/24 HOURS TOPICAL PATCH TD SCH (09:54)
[2022-01-27] MEDS: PRENATAL VITAMINS W/ FOLIC ACID TABLET (FP) PO SCH (09:54)
[2022-01-27] MEDS: LISINOPRIL 20 MG TABLET PO SCH ×2 (09:54→21:14)
[2022-01-27] MEDS: NAPROXEN 500 MG TABLET PO PRN ×2 (09:54→21:12)
[2022-01-27] MEDS: THIAMINE HCL 100 MG TABLET (FP) PO SCH (21:12)
[2022-01-27] MEDS: LIDOCAINE PATCH REMOVAL MC SCH (21:12)
[2022-01-27] MEDS: MELATONIN 5 MG TABLETS PO SCH (21:12)
[2022-01-28] MEDS: BENZOCAINE/MENTHOL (CHLORASEPTIC ) LOZENGE MM PRN (03:03)
[2022-01-28] MEDS: guaiFENesin 200 MG/10 ML 10 ML UNIT-DOSE CUPS PO PRN (03:03)
[2022-01-28] MEDS: ACETAMINOPHEN 325 MG TABLET (FP) PO PRN ×2 (03:04→13:31)
[2022-01-28] MEDS: FAMOTIDINE 20 MG TABLET PO SCH ×2 (06:31→19:06)
[2022-01-28] MEDS: GABAPENTIN 300 MG CAPSULE PO SCH ×3 (06:31→21:36)
[2022-01-28] MEDS: CARBAMIDE PEROXIDE 6.5% OTIC 15 ML BOTTLE AU SCH ×2 (10:06→21:38)
[2022-01-28] MEDS: LISINOPRIL 20 MG TABLET PO SCH ×2 (10:06→21:36)
[2022-01-28] MEDS: LIDOCAINE 5% TOPICAL PATCH TP SCH (10:06)
[2022-01-28] MEDS: PRENATAL VITAMINS W/ FOLIC ACID TABLET (FP) PO SCH (10:06)
[2022-01-28] MEDS: FLUTICASONE PROP 0.05% 16 GM NASAL SPRAY NS SCH (10:07)
[2022-01-28] MEDS: NAPROXEN 500 MG TABLET PO PRN ×2 (10:08→21:36)
[2022-01-28] MEDS: HYDROCORTISONE 2.5% TOPICAL CREAM 30 GM TUBE TP SCH ×2 (10:09→21:38)
[2022-01-28] MEDS: NICOTINE 7 MG/24 HOURS TOPICAL PATCH TD SCH (10:10)
[2022-01-28] MEDS: METHYL SALICYLATE/MENTHOL OINT 30 GM TUBE TP SCH ×2 (10:10→21:37)
[2022-01-28] MEDS: ARTIFICIAL TEARS (POLYVINYL ALCOHOL) OPTH DROPS OU SCH ×2 (10:10→21:36)
[2022-01-28] MEDS: THIAMINE HCL 100 MG TABLET (FP) PO SCH (21:36)
[2022-01-28] MEDS: MELATONIN 5 MG TABLETS PO SCH (21:36)
[2022-01-28] MEDS: LIDOCAINE PATCH REMOVAL MC SCH (21:38)
[2022-01-29] MEDS: guaiFENesin 200 MG/10 ML 10 ML UNIT-DOSE CUPS PO PRN (02:04)
[2022-01-29] MEDS: ACETAMINOPHEN 325 MG TABLET (FP) PO PRN ×2 (02:04→13:07)
[2022-01-29] MEDS: BENZOCAINE/MENTHOL (CHLORASEPTIC ) LOZENGE MM PRN (02:06)
[2022-01-29] MEDS: FAMOTIDINE 20 MG TABLET PO SCH ×2 (06:05→17:18)
[2022-01-29] MEDS: MAGNESIUM HYDROX 2400MG/30ML ORAL SUSPENSION 30 ML CUP PO PRN (06:05)
[2022-01-29] MEDS: GABAPENTIN 300 MG CAPSULE PO SCH ×3 (06:05→21:31)
[2022-01-29] MEDS: HYDROCORTISONE 2.5% TOPICAL CREAM 30 GM TUBE TP SCH ×2 (10:07→21:33)
[2022-01-29] MEDS: CARBAMIDE PEROXIDE 6.5% OTIC 15 ML BOTTLE AU SCH ×2 (10:07→21:32)
[2022-01-29] MEDS: LISINOPRIL 20 MG TABLET PO SCH ×2 (10:08→21:31)
[2022-01-29] MEDS: NAPROXEN 500 MG TABLET PO PRN (10:08)
[2022-01-29] MEDS: METHYL SALICYLATE/MENTHOL OINT 30 GM TUBE TP SCH ×2 (10:09→21:33)
[2022-01-29] MEDS: FLUTICASONE PROP 0.05% 16 GM NASAL SPRAY NS SCH (10:09)
[2022-01-29] MEDS: ARTIFICIAL TEARS (POLYVINYL ALCOHOL) OPTH DROPS OU SCH ×2 (10:09→21:33)
[2022-01-29] MEDS: PRENATAL VITAMINS W/ FOLIC ACID TABLET (FP) PO SCH (10:09)
[2022-01-29] MEDS: LIDOCAINE 5% TOPICAL PATCH TP SCH (10:17)
[2022-01-29] MEDS: NICOTINE 7 MG/24 HOURS TOPICAL PATCH TD SCH (10:18)
[2022-01-29] MEDS: THIAMINE HCL 100 MG TABLET (FP) PO SCH (21:32)
[2022-01-29] MEDS: MELATONIN 5 MG TABLETS PO SCH (21:32)
[2022-01-29] MEDS: LIDOCAINE PATCH REMOVAL MC SCH (21:32)
[2022-01-30] MEDS: guaiFENesin 200 MG/10 ML 10 ML UNIT-DOSE CUPS PO PRN (03:23)
[2022-01-30] MEDS: ACETAMINOPHEN 325 MG TABLET (FP) PO PRN ×2 (03:24→13:29)
[2022-01-30] MEDS: BENZOCAINE/MENTHOL (CHLORASEPTIC ) LOZENGE MM PRN (03:24)
[2022-01-30] MEDS: GABAPENTIN 300 MG CAPSULE PO SCH ×3 (06:30→21:35)
[2022-01-30] MEDS: FAMOTIDINE 20 MG TABLET PO SCH ×2 (06:30→17:58)
[2022-01-30] MEDS: HYDROCORTISONE 2.5% TOPICAL CREAM 30 GM TUBE TP SCH ×2 (09:44→21:36)
[2022-01-30] MEDS: ARTIFICIAL TEARS (POLYVINYL ALCOHOL) OPTH DROPS OU SCH ×2 (09:45→21:35)
[2022-01-30] MEDS: LIDOCAINE 5% TOPICAL PATCH TP SCH (09:46)
[2022-01-30] MEDS: FLUTICASONE PROP 0.05% 16 GM NASAL SPRAY NS SCH (09:46)
[2022-01-30] MEDS: METHYL SALICYLATE/MENTHOL OINT 30 GM TUBE TP SCH ×2 (09:46→21:36)
[2022-01-30] MEDS: PRENATAL VITAMINS W/ FOLIC ACID TABLET (FP) PO SCH (09:47)
[2022-01-30] MEDS: NICOTINE 7 MG/24 HOURS TOPICAL PATCH TD SCH (09:47)
[2022-01-30] MEDS: NAPROXEN 500 MG TABLET PO PRN ×2 (09:47→21:36)
[2022-01-30] MEDS: LISINOPRIL 20 MG TABLET PO SCH ×2 (09:47→21:35)
[2022-01-30] MEDS: MELATONIN 5 MG TABLETS PO SCH (21:37)
[2022-01-30] MEDS: LIDOCAINE PATCH REMOVAL MC SCH (21:37)
[2022-01-30] MEDS: THIAMINE HCL 100 MG TABLET (FP) PO SCH (21:37)
[2022-01-31] MEDS: ACETAMINOPHEN 325 MG TABLET (FP) PO PRN ×2 (02:31→13:36)
[2022-01-31] MEDS: guaiFENesin 200 MG/10 ML 10 ML UNIT-DOSE CUPS PO PRN ×2 (02:31→21:54)
[2022-01-31] MEDS: FAMOTIDINE 20 MG TABLET PO SCH ×2 (06:18→17:53)
[2022-01-31] MEDS: GABAPENTIN 300 MG CAPSULE PO SCH ×3 (06:18→21:46)
[2022-01-31] MEDS: MAGNESIUM HYDROX 2400MG/30ML ORAL SUSPENSION 30 ML CUP PO PRN (07:44)
[2022-01-31] MEDS: LIDOCAINE 5% TOPICAL PATCH TP SCH (10:05)
[2022-01-31] MEDS: LISINOPRIL 20 MG TABLET PO SCH ×2 (10:06→21:46)
[2022-01-31] MEDS: NICOTINE 7 MG/24 HOURS TOPICAL PATCH TD SCH (10:07)
[2022-01-31] MEDS: FLUTICASONE PROP 0.05% 16 GM NASAL SPRAY NS SCH (10:07)
[2022-01-31] MEDS: ARTIFICIAL TEARS (POLYVINYL ALCOHOL) OPTH DROPS OU SCH ×2 (10:07→21:51)
[2022-01-31] MEDS: METHYL SALICYLATE/MENTHOL OINT 30 GM TUBE TP SCH ×2 (10:07→21:47)
[2022-01-31] MEDS: HYDROCORTISONE 2.5% TOPICAL CREAM 30 GM TUBE TP SCH ×2 (10:07→21:55)
[2022-01-31] MEDS: PRENATAL VITAMINS W/ FOLIC ACID TABLET (FP) PO SCH (10:08)
[2022-01-31] MEDS: NAPROXEN 500 MG TABLET PO PRN ×2 (10:08→21:52)
[2022-01-31] MEDS: THIAMINE HCL 100 MG TABLET (FP) PO SCH (21:46)
[2022-01-31] MEDS: LIDOCAINE PATCH REMOVAL MC SCH (21:47)
[2022-01-31] MEDS: MELATONIN 5 MG TABLETS PO SCH (21:48)
[2022-01-31] MEDS: BENZOCAINE/MENTHOL (CHLORASEPTIC ) LOZENGE MM PRN (21:54)
[2022-02-01] MEDS: ACETAMINOPHEN 325 MG TABLET (FP) PO PRN ×2 (03:52→13:01)
[2022-02-01] MEDS: guaiFENesin 200 MG/10 ML 10 ML UNIT-DOSE CUPS PO PRN (03:52)
[2022-02-01] MEDS: BENZOCAINE/MENTHOL (CHLORASEPTIC ) LOZENGE MM PRN (03:53)
[2022-02-01] MEDS: GABAPENTIN 300 MG CAPSULE PO SCH ×3 (06:22→21:58)
[2022-02-01] MEDS: MAGNESIUM HYDROX 2400MG/30ML ORAL SUSPENSION 30 ML CUP PO PRN (06:22)
[2022-02-01] MEDS: FAMOTIDINE 20 MG TABLET PO SCH ×2 (06:22→18:05)
[2022-02-01] MEDS: ARTIFICIAL TEARS (POLYVINYL ALCOHOL) OPTH DROPS OU SCH ×2 (10:03→21:57)
[2022-02-01] MEDS: HYDROCORTISONE 2.5% TOPICAL CREAM 30 GM TUBE TP SCH ×2 (10:03→21:56)
[2022-02-01] MEDS: NICOTINE 7 MG/24 HOURS TOPICAL PATCH TD SCH (10:04)
[2022-02-01] MEDS: LIDOCAINE 5% TOPICAL PATCH TP SCH (10:04)
[2022-02-01] MEDS: FLUTICASONE PROP 0.05% 16 GM NASAL SPRAY NS SCH (10:04)
[2022-02-01] MEDS: METHYL SALICYLATE/MENTHOL OINT 30 GM TUBE TP SCH ×2 (10:04→22:00)
[2022-02-01] MEDS: PRENATAL VITAMINS W/ FOLIC ACID TABLET (FP) PO SCH (10:05)
[2022-02-01] MEDS: NAPROXEN 500 MG TABLET PO PRN ×2 (10:05→21:58)
[2022-02-01] MEDS: LISINOPRIL 20 MG TABLET PO SCH ×2 (10:05→21:58)
[2022-02-01] MEDS ORDERED: SODIUM CHLORIDE FOR INHALATION 3 ML VIAL.NEB IH PRN (13:21)
[2022-02-01] MEDS: SODIUM CHLORIDE NASAL SPRAY 44 ML BOTTLE NS PRN (21:55)
[2022-02-01] MEDS: SENNOSIDES 8.6MG TABLET (FP) PO PRN (21:58)
[2022-02-01] MEDS: THIAMINE HCL 100 MG TABLET (FP) PO SCH (21:58)
[2022-02-01] MEDS: LIDOCAINE PATCH REMOVAL MC SCH (22:00)
[2022-02-01] MEDS: MELATONIN 5 MG TABLETS PO SCH (22:01)
[2022-02-02] MEDS: guaiFENesin 200 MG/10 ML 10 ML UNIT-DOSE CUPS PO PRN (06:12)
[2022-02-02] MEDS: GABAPENTIN 300 MG CAPSULE PO SCH ×3 (06:12→21:48)
[2022-02-02] MEDS: FAMOTIDINE 20 MG TABLET PO SCH ×2 (06:12→17:54)
[2022-02-02] MEDS: ACETAMINOPHEN 325 MG TABLET (FP) PO PRN ×2 (06:13→14:08)
[2022-02-02] MEDS: BENZOCAINE/MENTHOL (CHLORASEPTIC ) LOZENGE MM PRN (06:15)
[2022-02-02] MEDS: MAGNESIUM HYDROX 2400MG/30ML ORAL SUSPENSION 30 ML CUP PO PRN (06:15)
[2022-02-02] MEDS: PRENATAL VITAMINS W/ FOLIC ACID TABLET (FP) PO SCH (10:04)
[2022-02-02] MEDS: LIDOCAINE 5% TOPICAL PATCH TP SCH (10:04)
[2022-02-02] MEDS: LISINOPRIL 20 MG TABLET PO SCH ×2 (10:04→21:48)
[2022-02-02] MEDS: HYDROCORTISONE 2.5% TOPICAL CREAM 30 GM TUBE TP SCH ×2 (10:05→22:00)
[2022-02-02] MEDS: SODIUM CHLORIDE NASAL SPRAY 44 ML BOTTLE NS PRN (10:05)
[2022-02-02] MEDS: NICOTINE 7 MG/24 HOURS TOPICAL PATCH TD SCH (10:05)
[2022-02-02] MEDS: ARTIFICIAL TEARS (POLYVINYL ALCOHOL) OPTH DROPS OU SCH ×2 (10:05→22:01)
[2022-02-02] MEDS: FLUTICASONE PROP 0.05% 16 GM NASAL SPRAY NS SCH (10:06)
[2022-02-02] MEDS: METHYL SALICYLATE/MENTHOL OINT 30 GM TUBE TP SCH ×2 (10:06→22:01)
[2022-02-02] MEDS: NAPROXEN 500 MG TABLET PO PRN ×2 (10:07→21:50)
[2022-02-02] MEDS: THIAMINE HCL 100 MG TABLET (FP) PO SCH (21:48)
[2022-02-02] MEDS: LIDOCAINE PATCH REMOVAL MC SCH (21:49)
[2022-02-02] MEDS: SENNOSIDES 8.6MG TABLET (FP) PO PRN (21:50)
[2022-02-02] MEDS: MELATONIN 5 MG TABLETS PO SCH (22:01)
[2022-02-03] MEDS: FAMOTIDINE 20 MG TABLET PO SCH ×2 (06:23→17:19)
[2022-02-03] MEDS: guaiFENesin 200 MG/10 ML 10 ML UNIT-DOSE CUPS PO PRN (06:23)
[2022-02-03] MEDS: GABAPENTIN 300 MG CAPSULE PO SCH ×3 (06:23→21:46)
[2022-02-03] MEDS: ACETAMINOPHEN 325 MG TABLET (FP) PO PRN ×2 (06:24→14:07)
[2022-02-03] MEDS: HYDROCORTISONE 2.5% TOPICAL CREAM 30 GM TUBE TP SCH ×2 (10:00→21:49)
[2022-02-03] MEDS: METHYL SALICYLATE/MENTHOL OINT 30 GM TUBE TP SCH ×2 (10:01→21:47)
[2022-02-03] MEDS: ARTIFICIAL TEARS (POLYVINYL ALCOHOL) OPTH DROPS OU SCH ×2 (10:01→21:49)
[2022-02-03] MEDS: NAPROXEN 500 MG TABLET PO PRN ×2 (10:02→21:49)
[2022-02-03] MEDS: LISINOPRIL 20 MG TABLET PO SCH ×2 (10:02→21:46)
[2022-02-03] MEDS: NICOTINE 7 MG/24 HOURS TOPICAL PATCH TD SCH (10:02)
[2022-02-03] MEDS: FLUTICASONE PROP 0.05% 16 GM NASAL SPRAY NS SCH (10:02)
[2022-02-03] MEDS: PRENATAL VITAMINS W/ FOLIC ACID TABLET (FP) PO SCH (10:02)
[2022-02-03] MEDS: LIDOCAINE 5% TOPICAL PATCH TP SCH (10:03)
[2022-02-03] MEDS: SODIUM CHLORIDE NASAL SPRAY 44 ML BOTTLE NS PRN (14:10)
[2022-02-03] MEDS: THIAMINE HCL 100 MG TABLET (FP) PO SCH (21:46)
[2022-02-03] MEDS: MELATONIN 5 MG TABLETS PO SCH (21:47)
[2022-02-03] MEDS: LIDOCAINE PATCH REMOVAL MC SCH (21:47)
[2022-02-03] MEDS: DOCUSATE SODIUM 100 MG CAPSULE (FP) PO PRN (21:49)
[2022-02-04] MEDS: MAGNESIUM HYDROX 2400MG/30ML ORAL SUSPENSION 30 ML CUP PO PRN (06:19)
[2022-02-04] MEDS: guaiFENesin 200 MG/10 ML 10 ML UNIT-DOSE CUPS PO PRN (06:19)
[2022-02-04] MEDS: FAMOTIDINE 20 MG TABLET PO SCH ×2 (06:19→17:40)
[2022-02-04] MEDS: BENZOCAINE/MENTHOL (CHLORASEPTIC ) LOZENGE MM PRN (06:19)
[2022-02-04] MEDS: GABAPENTIN 300 MG CAPSULE PO SCH ×3 (06:19→21:24)
[2022-02-04] MEDS: ACETAMINOPHEN 325 MG TABLET (FP) PO PRN ×2 (06:20→13:34)
[2022-02-04] MEDS: HYDROCORTISONE 2.5% TOPICAL CREAM 30 GM TUBE TP SCH ×2 (10:13→21:24)
[2022-02-04] MEDS: METHYL SALICYLATE/MENTHOL OINT 30 GM TUBE TP SCH ×2 (10:14→21:32)
[2022-02-04] MEDS: PRENATAL VITAMINS W/ FOLIC ACID TABLET (FP) PO SCH (10:14)
[2022-02-04] MEDS: LISINOPRIL 20 MG TABLET PO SCH ×2 (10:14→21:24)
[2022-02-04] MEDS: NAPROXEN 500 MG TABLET PO PRN ×2 (10:14→21:26)
[2022-02-04] MEDS: ARTIFICIAL TEARS (POLYVINYL ALCOHOL) OPTH DROPS OU SCH ×2 (10:15→21:32)
[2022-02-04] MEDS: NICOTINE 7 MG/24 HOURS TOPICAL PATCH TD SCH (10:15)
[2022-02-04] MEDS: FLUTICASONE PROP 0.05% 16 GM NASAL SPRAY NS SCH (10:15)
[2022-02-04] MEDS: LIDOCAINE 5% TOPICAL PATCH TP SCH (10:15)
[2022-02-04] MEDS: SODIUM CHLORIDE NASAL SPRAY 44 ML BOTTLE NS PRN (13:36)
[2022-02-04] MEDS ORDERED: NICOTINE 7 MG/24 HOURS TOPICAL PATCH TD PRN (13:45)
[2022-02-04] MEDS: THIAMINE HCL 100 MG TABLET (FP) PO SCH (21:24)
[2022-02-04] MEDS: DOCUSATE SODIUM 100 MG CAPSULE (FP) PO PRN (21:24)
[2022-02-04] MEDS: MELATONIN 5 MG TABLETS PO SCH (21:32)
[2022-02-04] MEDS: LIDOCAINE PATCH REMOVAL MC SCH (21:32)
[2022-02-05] MEDS: ACETAMINOPHEN 325 MG TABLET (FP) PO PRN ×2 (04:37→13:41)
[2022-02-05] MEDS: guaiFENesin 200 MG/10 ML 10 ML UNIT-DOSE CUPS PO PRN (04:37)
[2022-02-05] MEDS: BENZOCAINE/MENTHOL (CHLORASEPTIC ) LOZENGE MM PRN (04:37)
[2022-02-05] MEDS: FAMOTIDINE 20 MG TABLET PO SCH ×3 (06:29→18:10)
[2022-02-05] MEDS: GABAPENTIN 300 MG CAPSULE PO SCH ×3 (06:29→21:37)
[2022-02-05] MEDS: LIDOCAINE 5% TOPICAL PATCH TP SCH (09:47)
[2022-02-05] MEDS: DOCUSATE SODIUM 100 MG CAPSULE (FP) PO PRN (09:48)
[2022-02-05] MEDS: NAPROXEN 500 MG TABLET PO PRN (09:49)
[2022-02-05] MEDS: FLUTICASONE PROP 0.05% 16 GM NASAL SPRAY NS SCH (09:49)
[2022-02-05] MEDS: LISINOPRIL 20 MG TABLET PO SCH ×2 (09:49→21:37)
[2022-02-05] MEDS: ARTIFICIAL TEARS (POLYVINYL ALCOHOL) OPTH DROPS OU SCH ×2 (09:50→21:36)
[2022-02-05] MEDS: PRENATAL VITAMINS W/ FOLIC ACID TABLET (FP) PO SCH (09:50)
[2022-02-05] MEDS: HYDROCORTISONE 2.5% TOPICAL CREAM 30 GM TUBE TP SCH ×2 (09:50→21:36)
[2022-02-05] MEDS: METHYL SALICYLATE/MENTHOL OINT 30 GM TUBE TP SCH ×2 (09:51→21:36)
[2022-02-05] MEDS: SODIUM CHLORIDE NASAL SPRAY 44 ML BOTTLE NS PRN (13:44)
[2022-02-05] MEDS: MELATONIN 5 MG TABLETS PO SCH (21:37)
[2022-02-05] MEDS: THIAMINE HCL 100 MG TABLET (FP) PO SCH (21:37)
[2022-02-05] MEDS: LIDOCAINE PATCH REMOVAL MC SCH (21:37)
[2022-02-06] MEDS: guaiFENesin 200 MG/10 ML 10 ML UNIT-DOSE CUPS PO PRN ×2 (04:13→13:29)
[2022-02-06] MEDS: ACETAMINOPHEN 325 MG TABLET (FP) PO PRN ×2 (04:13→13:26)
[2022-02-06] MEDS: BENZOCAINE/MENTHOL (CHLORASEPTIC ) LOZENGE MM PRN (04:13)
[2022-02-06] MEDS: FAMOTIDINE 20 MG TABLET PO SCH ×2 (06:40→18:15)
[2022-02-06] MEDS: GABAPENTIN 300 MG CAPSULE PO SCH ×3 (06:40→21:45)
[2022-02-06] MEDS: DOCUSATE SODIUM 100 MG CAPSULE (FP) PO PRN ×2 (09:50→21:45)
[2022-02-06] MEDS: PRENATAL VITAMINS W/ FOLIC ACID TABLET (FP) PO SCH (09:50)
[2022-02-06] MEDS: NAPROXEN 500 MG TABLET PO PRN ×2 (09:50→21:45)
[2022-02-06] MEDS: LISINOPRIL 20 MG TABLET PO SCH ×2 (09:50→21:45)
[2022-02-06] MEDS: LIDOCAINE 5% TOPICAL PATCH TP SCH (09:51)
[2022-02-06] MEDS: FLUTICASONE PROP 0.05% 16 GM NASAL SPRAY NS SCH (09:51)
[2022-02-06] MEDS: METHYL SALICYLATE/MENTHOL OINT 30 GM TUBE TP SCH ×2 (09:51→21:46)
[2022-02-06] MEDS: HYDROCORTISONE 2.5% TOPICAL CREAM 30 GM TUBE TP SCH ×2 (09:51→21:48)
[2022-02-06] MEDS: ARTIFICIAL TEARS (POLYVINYL ALCOHOL) OPTH DROPS OU SCH ×2 (09:51→21:47)
[2022-02-06] MEDS: SODIUM CHLORIDE NASAL SPRAY 44 ML BOTTLE NS PRN (13:26)
[2022-02-06] MEDS: THIAMINE HCL 100 MG TABLET (FP) PO SCH (21:45)
[2022-02-06] MEDS: MELATONIN 5 MG TABLETS PO SCH (21:46)
[2022-02-06] MEDS: LIDOCAINE PATCH REMOVAL MC SCH (21:46)
[2022-02-07] MEDS: ACETAMINOPHEN 325 MG TABLET (FP) PO PRN ×2 (06:39→13:04)
[2022-02-07] MEDS: FAMOTIDINE 20 MG TABLET PO SCH ×2 (06:39→17:24)
[2022-02-07] MEDS: BENZOCAINE/MENTHOL (CHLORASEPTIC ) LOZENGE MM PRN (06:39)
[2022-02-07] MEDS: guaiFENesin 200 MG/10 ML 10 ML UNIT-DOSE CUPS PO PRN (06:39)
[2022-02-07] MEDS: GABAPENTIN 300 MG CAPSULE PO SCH ×3 (06:39→21:20)
[2022-02-07] MEDS: ARTIFICIAL TEARS (POLYVINYL ALCOHOL) OPTH DROPS OU SCH ×2 (09:31→21:22)
[2022-02-07] MEDS: HYDROCORTISONE 2.5% TOPICAL CREAM 30 GM TUBE TP SCH ×2 (09:31→21:22)
[2022-02-07] MEDS: PRENATAL VITAMINS W/ FOLIC ACID TABLET (FP) PO SCH (09:32)
[2022-02-07] MEDS: METHYL SALICYLATE/MENTHOL OINT 30 GM TUBE TP SCH ×2 (09:32→21:22)
[2022-02-07] MEDS: LIDOCAINE 5% TOPICAL PATCH TP SCH (09:32)
[2022-02-07] MEDS: FLUTICASONE PROP 0.05% 16 GM NASAL SPRAY NS SCH (09:32)
[2022-02-07] MEDS: LISINOPRIL 20 MG TABLET PO SCH ×2 (09:33→21:20)
[2022-02-07] MEDS: NAPROXEN 500 MG TABLET PO PRN ×2 (09:33→21:21)
[2022-02-07] MEDS: MAGNESIUM HYDROX 2400MG/30ML ORAL SUSPENSION 30 ML CUP PO PRN (09:34)
[2022-02-07] MEDS: hydrOXYzine PAMOATE 25 MG CAPSULE (FP) PO PRN (21:20)
[2022-02-07] MEDS: THIAMINE HCL 100 MG TABLET (FP) PO SCH (21:20)
[2022-02-07] MEDS: MELATONIN 5 MG TABLETS PO SCH (21:20)
[2022-02-07] MEDS: LACTULOSE 20 GM/30 ML UDC (FOR ORAL USE ONLY) PO PRN (21:21)
[2022-02-07] MEDS: LIDOCAINE PATCH REMOVAL MC SCH (21:22)
[2022-02-08] MEDS: GABAPENTIN 300 MG CAPSULE PO SCH ×3 (06:33→21:28)
[2022-02-08] MEDS: guaiFENesin 200 MG/10 ML 10 ML UNIT-DOSE CUPS PO PRN (06:33)
[2022-02-08] MEDS: FAMOTIDINE 20 MG TABLET PO SCH ×2 (06:33→17:42)
[2022-02-08] MEDS: ACETAMINOPHEN 325 MG TABLET (FP) PO PRN ×2 (06:33→13:10)
[2022-02-08] MEDS: BENZOCAINE/MENTHOL (CHLORASEPTIC ) LOZENGE MM PRN (06:34)
[2022-02-08] MEDS: HYDROCORTISONE 2.5% TOPICAL CREAM 30 GM TUBE TP SCH ×2 (09:53→21:30)
[2022-02-08] MEDS: ARTIFICIAL TEARS (POLYVINYL ALCOHOL) OPTH DROPS OU SCH ×2 (09:53→21:30)
[2022-02-08] MEDS: METHYL SALICYLATE/MENTHOL OINT 30 GM TUBE TP SCH ×2 (09:54→21:31)
[2022-02-08] MEDS: FLUTICASONE PROP 0.05% 16 GM NASAL SPRAY NS SCH (09:54)
[2022-02-08] MEDS: LIDOCAINE 5% TOPICAL PATCH TP SCH (09:55)
[2022-02-08] MEDS: NAPROXEN 500 MG TABLET PO PRN ×2 (09:55→21:28)
[2022-02-08] MEDS: LISINOPRIL 20 MG TABLET PO SCH ×2 (09:55→21:28)
[2022-02-08] MEDS: PRENATAL VITAMINS W/ FOLIC ACID TABLET (FP) PO SCH (09:55)
[2022-02-08] MEDS: SODIUM CHLORIDE NASAL SPRAY 44 ML BOTTLE NS PRN (13:11)
[2022-02-08] MEDS: MAG HYDROX/AL HYDROX/SIMETH 30 ML UNIT-DOSE CUP PO PRN (16:27)
[2022-02-08] MEDS: MELATONIN 5 MG TABLETS PO SCH (21:27)
[2022-02-08] MEDS: THIAMINE HCL 100 MG TABLET (FP) PO SCH (21:27)
[2022-02-08] MEDS: LACTULOSE 20 GM/30 ML UDC (FOR ORAL USE ONLY) PO PRN (21:29)
[2022-02-08] MEDS: LIDOCAINE PATCH REMOVAL MC SCH (21:31)
[2022-02-09] MEDS: BENZOCAINE/MENTHOL (CHLORASEPTIC ) LOZENGE MM PRN (03:30)
[2022-02-09] MEDS: guaiFENesin 200 MG/10 ML 10 ML UNIT-DOSE CUPS PO PRN (03:30)
[2022-02-09] MEDS: ACETAMINOPHEN 325 MG TABLET (FP) PO PRN ×2 (03:30→13:31)
[2022-02-09] MEDS: GABAPENTIN 300 MG CAPSULE PO SCH ×3 (06:29→21:27)
[2022-02-09] MEDS: FAMOTIDINE 20 MG TABLET PO SCH ×2 (06:29→17:12)
[2022-02-09] MEDS: LIDOCAINE 5% TOPICAL PATCH TP SCH (10:13)
[2022-02-09] MEDS: LISINOPRIL 20 MG TABLET PO SCH ×2 (10:14→21:27)
[2022-02-09] MEDS: FLUTICASONE PROP 0.05% 16 GM NASAL SPRAY NS SCH (10:14)
[2022-02-09] MEDS: ARTIFICIAL TEARS (POLYVINYL ALCOHOL) OPTH DROPS OU SCH ×2 (10:14→21:29)
[2022-02-09] MEDS: PRENATAL VITAMINS W/ FOLIC ACID TABLET (FP) PO SCH (10:14)
[2022-02-09] MEDS: HYDROCORTISONE 2.5% TOPICAL CREAM 30 GM TUBE TP SCH ×2 (10:15→21:29)
[2022-02-09] MEDS: NAPROXEN 500 MG TABLET PO PRN ×2 (10:16→21:28)
[2022-02-09] MEDS: METHYL SALICYLATE/MENTHOL OINT 30 GM TUBE TP SCH ×2 (10:17→21:29)
[2022-02-09] MEDS: SODIUM CHLORIDE NASAL SPRAY 44 ML BOTTLE NS PRN (13:32)
[2022-02-09] MEDS: THIAMINE HCL 100 MG TABLET (FP) PO SCH (21:27)
[2022-02-09] MEDS: LACTULOSE 20 GM/30 ML UDC (FOR ORAL USE ONLY) PO PRN (21:28)
[2022-02-09] MEDS: LIDOCAINE PATCH REMOVAL MC SCH (21:29)
[2022-02-09] MEDS: MELATONIN 5 MG TABLETS PO SCH (21:29)
[2022-02-10] MEDS: FAMOTIDINE 20 MG TABLET PO SCH ×2 (06:40→17:45)
[2022-02-10] MEDS: guaiFENesin 200 MG/10 ML 10 ML UNIT-DOSE CUPS PO PRN (06:40)
[2022-02-10] MEDS: ACETAMINOPHEN 325 MG TABLET (FP) PO PRN ×2 (06:40→13:20)
[2022-02-10] MEDS: GABAPENTIN 300 MG CAPSULE PO SCH ×3 (06:42→21:32)
[2022-02-10] MEDS: LIDOCAINE 5% TOPICAL PATCH TP SCH (09:54)
[2022-02-10] MEDS: FLUTICASONE PROP 0.05% 16 GM NASAL SPRAY NS SCH (09:54)
[2022-02-10] MEDS: LISINOPRIL 20 MG TABLET PO SCH ×2 (09:55→21:32)
[2022-02-10] MEDS: NAPROXEN 500 MG TABLET PO PRN ×2 (09:55→21:32)
[2022-02-10] MEDS: PRENATAL VITAMINS W/ FOLIC ACID TABLET (FP) PO SCH (09:55)
[2022-02-10] MEDS: ARTIFICIAL TEARS (POLYVINYL ALCOHOL) OPTH DROPS OU SCH ×2 (09:55→21:33)
[2022-02-10] MEDS: HYDROCORTISONE 2.5% TOPICAL CREAM 30 GM TUBE TP SCH ×2 (09:55→21:33)
[2022-02-10] MEDS: METHYL SALICYLATE/MENTHOL OINT 30 GM TUBE TP SCH ×2 (09:56→21:33)
[2022-02-10] MEDS: SODIUM CHLORIDE NASAL SPRAY 44 ML BOTTLE NS PRN (13:20)
[2022-02-10] MEDS: THIAMINE HCL 100 MG TABLET (FP) PO SCH (21:32)
[2022-02-10] MEDS: LACTULOSE 20 GM/30 ML UDC (FOR ORAL USE ONLY) PO PRN (21:32)
[2022-02-10] MEDS: MELATONIN 5 MG TABLETS PO SCH (21:33)
[2022-02-10] MEDS: LIDOCAINE PATCH REMOVAL MC SCH (21:33)
[2022-02-11] MEDS: FAMOTIDINE 20 MG TABLET PO SCH ×2 (06:28→17:58)
[2022-02-11] MEDS: GABAPENTIN 300 MG CAPSULE PO SCH ×3 (06:28→21:48)
[2022-02-11] MEDS: ACETAMINOPHEN 325 MG TABLET (FP) PO PRN ×2 (06:28→14:13)
[2022-02-11] MEDS: guaiFENesin 200 MG/10 ML 10 ML UNIT-DOSE CUPS PO PRN (06:29)
[2022-02-11] MEDS: LIDOCAINE 5% TOPICAL PATCH TP SCH (09:52)
[2022-02-11] MEDS: FLUTICASONE PROP 0.05% 16 GM NASAL SPRAY NS SCH (09:52)
[2022-02-11] MEDS: HYDROCORTISONE 2.5% TOPICAL CREAM 30 GM TUBE TP SCH ×2 (09:53→21:52)
[2022-02-11] MEDS: LISINOPRIL 20 MG TABLET PO SCH ×2 (09:53→21:48)
[2022-02-11] MEDS: PRENATAL VITAMINS W/ FOLIC ACID TABLET (FP) PO SCH (09:53)
[2022-02-11] MEDS: ARTIFICIAL TEARS (POLYVINYL ALCOHOL) OPTH DROPS OU SCH ×2 (09:53→21:52)
[2022-02-11] MEDS: MAGNESIUM HYDROX 2400MG/30ML ORAL SUSPENSION 30 ML CUP PO PRN (09:54)
[2022-02-11] MEDS: NAPROXEN 500 MG TABLET PO PRN ×2 (09:54→21:48)
[2022-02-11] MEDS: METHYL SALICYLATE/MENTHOL OINT 30 GM TUBE TP SCH ×2 (09:55→21:51)
[2022-02-11] MEDS: SODIUM CHLORIDE NASAL SPRAY 44 ML BOTTLE NS PRN (14:13)
[2022-02-11] MEDS: MAG HYDROX/AL HYDROX/SIMETH 30 ML UNIT-DOSE CUP PO PRN (18:47)
[2022-02-11] MEDS: LACTULOSE 20 GM/30 ML UDC (FOR ORAL USE ONLY) PO PRN (21:48)
[2022-02-11] MEDS: THIAMINE HCL 100 MG TABLET (FP) PO SCH (21:48)
[2022-02-11] MEDS: LIDOCAINE PATCH REMOVAL MC SCH (21:49)
[2022-02-11] MEDS: MELATONIN 5 MG TABLETS PO SCH (21:49)
[2022-02-11] MEDS: DOCUSATE SODIUM 100 MG CAPSULE (FP) PO SCH (21:51)
[2022-02-12] MEDS: DOCUSATE SODIUM 100 MG CAPSULE (FP) PO SCH ×3 (06:40→21:30)
[2022-02-12] MEDS: guaiFENesin 200 MG/10 ML 10 ML UNIT-DOSE CUPS PO PRN (06:40)
[2022-02-12] MEDS: GABAPENTIN 300 MG CAPSULE PO SCH ×3 (06:40→21:30)
[2022-02-12] MEDS: NAPROXEN 500 MG TABLET PO PRN ×2 (06:40→21:30)
[2022-02-12] MEDS: FAMOTIDINE 20 MG TABLET PO SCH ×2 (06:40→17:09)
[2022-02-12] MEDS: HYDROCORTISONE 2.5% TOPICAL CREAM 30 GM TUBE TP SCH ×2 (09:26→21:31)
[2022-02-12] MEDS: METHYL SALICYLATE/MENTHOL OINT 30 GM TUBE TP SCH ×2 (09:27→21:31)
[2022-02-12] MEDS: ARTIFICIAL TEARS (POLYVINYL ALCOHOL) OPTH DROPS OU SCH ×2 (09:27→21:30)
[2022-02-12] MEDS: LIDOCAINE 5% TOPICAL PATCH TP SCH (09:28)
[2022-02-12] MEDS: FLUTICASONE PROP 0.05% 16 GM NASAL SPRAY NS SCH (09:28)
[2022-02-12] MEDS: PRENATAL VITAMINS W/ FOLIC ACID TABLET (FP) PO SCH (09:28)
[2022-02-12] MEDS: LISINOPRIL 20 MG TABLET PO SCH ×2 (09:28→21:30)
[2022-02-12] MEDS: ACETAMINOPHEN 325 MG TABLET (FP) PO PRN (13:02)
[2022-02-12] MEDS: SODIUM CHLORIDE NASAL SPRAY 44 ML BOTTLE NS PRN (13:02)
[2022-02-12] MEDS: THIAMINE HCL 100 MG TABLET (FP) PO SCH (21:30)
[2022-02-12] MEDS: LIDOCAINE PATCH REMOVAL MC SCH (21:31)
[2022-02-12] MEDS: LACTULOSE 20 GM/30 ML UDC (FOR ORAL USE ONLY) PO PRN (21:31)
[2022-02-12] MEDS: MELATONIN 5 MG TABLETS PO SCH (21:32)
[2022-02-13] MEDS: FAMOTIDINE 20 MG TABLET PO SCH ×2 (05:52→17:08)
[2022-02-13] MEDS: GABAPENTIN 300 MG CAPSULE PO SCH ×3 (05:52→21:26)
[2022-02-13] MEDS: DOCUSATE SODIUM 100 MG CAPSULE (FP) PO SCH ×3 (05:52→21:26)
[2022-02-13] MEDS: guaiFENesin 200 MG/10 ML 10 ML UNIT-DOSE CUPS PO PRN (05:54)
[2022-02-13] MEDS: PRENATAL VITAMINS W/ FOLIC ACID TABLET (FP) PO SCH (09:37)
[2022-02-13] MEDS: LISINOPRIL 20 MG TABLET PO SCH ×2 (09:37→21:26)
[2022-02-13] MEDS: FLUTICASONE PROP 0.05% 16 GM NASAL SPRAY NS SCH (09:37)
[2022-02-13] MEDS: HYDROCORTISONE 2.5% TOPICAL CREAM 30 GM TUBE TP SCH ×2 (09:38→21:27)
[2022-02-13] MEDS: ARTIFICIAL TEARS (POLYVINYL ALCOHOL) OPTH DROPS OU SCH ×2 (09:38→21:27)
[2022-02-13] MEDS: MAGNESIUM HYDROX 2400MG/30ML ORAL SUSPENSION 30 ML CUP PO PRN (09:39)
[2022-02-13] MEDS: METHYL SALICYLATE/MENTHOL OINT 30 GM TUBE TP SCH ×2 (09:39→21:27)
[2022-02-13] MEDS: LIDOCAINE 5% TOPICAL PATCH TP SCH (09:39)
[2022-02-13] MEDS: NAPROXEN 500 MG TABLET PO PRN ×2 (09:39→21:26)
[2022-02-13] MEDS: SODIUM CHLORIDE NASAL SPRAY 44 ML BOTTLE NS PRN (13:16)
[2022-02-13] MEDS: ACETAMINOPHEN 325 MG TABLET (FP) PO PRN (13:16)
[2022-02-13] MEDS: MAG HYDROX/AL HYDROX/SIMETH 30 ML UNIT-DOSE CUP PO PRN (14:33)
[2022-02-13] MEDS: LACTULOSE 20 GM/30 ML UDC (FOR ORAL USE ONLY) PO PRN (21:26)
[2022-02-13] MEDS: THIAMINE HCL 100 MG TABLET (FP) PO SCH (21:26)
[2022-02-13] MEDS: hydrOXYzine PAMOATE 25 MG CAPSULE (FP) PO PRN (21:26)
[2022-02-13] MEDS: LIDOCAINE PATCH REMOVAL MC SCH (21:27)
[2022-02-13] MEDS: MELATONIN 5 MG TABLETS PO SCH (21:27)
[2022-02-14] MEDS: ACETAMINOPHEN 325 MG TABLET (FP) PO PRN (03:50)
[2022-02-14] MEDS: BENZOCAINE/MENTHOL (CHLORASEPTIC ) LOZENGE MM PRN (03:50)
[2022-02-14] MEDS: guaiFENesin 200 MG/10 ML 10 ML UNIT-DOSE CUPS PO PRN (03:50)
[2022-02-14] MEDS: GABAPENTIN 300 MG CAPSULE PO SCH ×3 (06:28→21:12)
[2022-02-14] MEDS: DOCUSATE SODIUM 100 MG CAPSULE (FP) PO SCH ×3 (06:28→21:12)
[2022-02-14] MEDS: FAMOTIDINE 20 MG TABLET PO SCH ×2 (06:28→17:20)
[2022-02-14] MEDS: LISINOPRIL 20 MG TABLET PO SCH ×2 (09:44→21:14)
[2022-02-14] MEDS: NAPROXEN 500 MG TABLET PO PRN ×2 (09:44→21:12)
[2022-02-14] MEDS: LIDOCAINE 5% TOPICAL PATCH TP SCH (09:45)
[2022-02-14] MEDS: FLUTICASONE PROP 0.05% 16 GM NASAL SPRAY NS SCH (09:45)
[2022-02-14] MEDS: PRENATAL VITAMINS W/ FOLIC ACID TABLET (FP) PO SCH (09:45)
[2022-02-14] MEDS: HYDROCORTISONE 2.5% TOPICAL CREAM 30 GM TUBE TP SCH (09:46)
[2022-02-14] MEDS: ARTIFICIAL TEARS (POLYVINYL ALCOHOL) OPTH DROPS OU SCH ×2 (09:46→21:13)
[2022-02-14] MEDS: METHYL SALICYLATE/MENTHOL OINT 30 GM TUBE TP SCH (09:47)
[2022-02-14] MEDS: SODIUM CHLORIDE NASAL SPRAY 44 ML BOTTLE NS PRN (13:21)
[2022-02-14] MEDS ORDERED: METHYL SALICYLATE/MENTHOL OINT 30 GM TUBE TP PRN (14:55)
[2022-02-14] MEDS: LACTULOSE 20 GM/30 ML UDC (FOR ORAL USE ONLY) PO PRN (21:12)
[2022-02-14] MEDS: THIAMINE HCL 100 MG TABLET (FP) PO SCH (21:12)
[2022-02-14] MEDS: LIDOCAINE PATCH REMOVAL MC SCH (21:13)
[2022-02-15] MEDS: DOCUSATE SODIUM 100 MG CAPSULE (FP) PO SCH ×3 (06:37→21:59)
[2022-02-15] MEDS: GABAPENTIN 300 MG CAPSULE PO SCH ×3 (06:37→21:55)
[2022-02-15] MEDS: FAMOTIDINE 20 MG TABLET PO SCH ×2 (06:37→17:59)
[2022-02-15] MEDS: MAGNESIUM HYDROX 2400MG/30ML ORAL SUSPENSION 30 ML CUP PO PRN (06:39)
[2022-02-15] MEDS: guaiFENesin 200 MG/10 ML 10 ML UNIT-DOSE CUPS PO PRN (06:39)
[2022-02-15] MEDS: PRENATAL VITAMINS W/ FOLIC ACID TABLET (FP) PO SCH (09:38)
[2022-02-15] MEDS: LIDOCAINE 5% TOPICAL PATCH TP SCH (09:39)
[2022-02-15] MEDS: FLUTICASONE PROP 0.05% 16 GM NASAL SPRAY NS SCH (09:39)
[2022-02-15] MEDS: LISINOPRIL 20 MG TABLET PO SCH ×2 (09:40→21:55)
[2022-02-15] MEDS: NAPROXEN 500 MG TABLET PO PRN ×2 (09:44→21:55)
[2022-02-15] MEDS: HYDROCORTISONE 2.5% TOPICAL CREAM 30 GM TUBE TP PRN ×2 (09:46→21:56)
[2022-02-15] MEDS: ARTIFICIAL TEARS (POLYVINYL ALCOHOL) OPTH DROPS OU SCH ×2 (11:30→21:58)
[2022-02-15] MEDS: ACETAMINOPHEN 325 MG TABLET (FP) PO PRN (13:11)
[2022-02-15] MEDS: SODIUM CHLORIDE NASAL SPRAY 44 ML BOTTLE NS PRN (13:12)
[2022-02-15] MEDS: MAG HYDROX/AL HYDROX/SIMETH 30 ML UNIT-DOSE CUP PO PRN (14:54)
[2022-02-15] MEDS: THIAMINE HCL 100 MG TABLET (FP) PO SCH (21:55)
[2022-02-15] MEDS: LIDOCAINE PATCH REMOVAL MC SCH (22:28)
[2022-02-16] MEDS: ACETAMINOPHEN 325 MG TABLET (FP) PO PRN (05:37)
[2022-02-16] MEDS: guaiFENesin 200 MG/10 ML 10 ML UNIT-DOSE CUPS PO PRN (05:38)
[2022-02-16] MEDS: DOCUSATE SODIUM 100 MG CAPSULE (FP) PO SCH ×3 (05:39→21:31)
[2022-02-16] MEDS: GABAPENTIN 300 MG CAPSULE PO SCH ×3 (05:39→21:29)
[2022-02-16] MEDS: FAMOTIDINE 20 MG TABLET PO SCH ×2 (05:39→17:35)
[2022-02-16] MEDS: BENZOCAINE/MENTHOL (CHLORASEPTIC ) LOZENGE MM PRN (05:39)
[2022-02-16] MEDS: LIDOCAINE 5% TOPICAL PATCH TP SCH (09:42)
[2022-02-16] MEDS: LISINOPRIL 20 MG TABLET PO SCH ×2 (09:43→21:28)
[2022-02-16] MEDS: PRENATAL VITAMINS W/ FOLIC ACID TABLET (FP) PO SCH (09:43)
[2022-02-16] MEDS: NAPROXEN 500 MG TABLET PO PRN ×2 (09:43→21:29)
[2022-02-16] MEDS: FLUTICASONE PROP 0.05% 16 GM NASAL SPRAY NS SCH (09:44)
[2022-02-16] MEDS: ARTIFICIAL TEARS (POLYVINYL ALCOHOL) OPTH DROPS OU SCH ×2 (09:44→21:31)
[2022-02-16] MEDS: HYDROCORTISONE 2.5% TOPICAL CREAM 30 GM TUBE TP PRN (09:45)
[2022-02-16] MEDS: SODIUM CHLORIDE NASAL SPRAY 44 ML BOTTLE NS PRN (13:31)
[2022-02-16] MEDS: MAGNESIUM HYDROX 2400MG/30ML ORAL SUSPENSION 30 ML CUP PO PRN (13:33)
[2022-02-16] MEDS: THIAMINE HCL 100 MG TABLET (FP) PO SCH (21:28)
[2022-02-16] MEDS: LACTULOSE 20 GM/30 ML UDC (FOR ORAL USE ONLY) PO PRN (21:30)
[2022-02-16] MEDS: LIDOCAINE PATCH REMOVAL MC SCH (21:31)
[2022-02-16 21:36] VITALS: RESP 18
[2022-02-17] MEDS: guaiFENesin 200 MG/10 ML 10 ML UNIT-DOSE CUPS PO PRN (03:34)
[2022-02-17] MEDS: ACETAMINOPHEN 325 MG TABLET (FP) PO PRN (03:34)
[2022-02-17] MEDS: BENZOCAINE/MENTHOL (CHLORASEPTIC ) LOZENGE MM PRN (03:35)
[2022-02-17] MEDS: DOCUSATE SODIUM 100 MG CAPSULE (FP) PO SCH (06:26)
[2022-02-17] MEDS: FAMOTIDINE 20 MG TABLET PO SCH (06:27)
[2022-02-17] MEDS: GABAPENTIN 300 MG CAPSULE PO SCH (06:27)
[2022-02-17 06:40] VITALS: BP 152/89; PULSE 90; TEMP 97.7
== END 2022-02-17 07:22 | disposition home or self-care (01) | DRG 772 ==
LOC: YASAS 18:28 → Y3E 18:30
PROVIDERS: ADMIT Allergy & Immunology; ATTEND Psychiatry & Neurology Pain Medicine
PROC: HZ42ZZZ Group Counseling for Substance Abuse Treatment, Cognitive-Behavioral (ICD-10-PCS; principal; 2022-01-21)
DX: F10.20 Alcohol dependence, uncomplicated (principal); F17.210 Nicotine dependence, cigarettes, uncomplicated; I10 Essential (primary) hypertension; K21.9 Gastro-esophageal reflux disease without esophagitis; K59.00 Constipation, unspecified; K64.4 Residual hemorrhoidal skin tags; M25.512 Pain in left shoulder; Z88.0 Allergy status to penicillin; Z88.7 Allergy status to serum and vaccine; Z88.8 Allergy status to other drugs, medicaments and biological substances

== ENCOUNTER 2022-03-13 10:19 | Inpatient (IN) | payer OTHER ==
[2022-03-13 11:44] VITALS: BMI 27.7
[2022-03-13] MEDS ORDERED: LORazepam 1 MG TABLET PO PRN (12:40)
[2022-03-13] MEDS ORDERED: ACETAMINOPHEN 325 MG TABLET (FP) PO PRN ×2 (12:40)
[2022-03-13] MEDS ORDERED: hydrOXYzine PAMOATE 25 MG CAPSULE (FP) PO PRN (12:40)
[2022-03-13] MEDS ORDERED: MAGNESIUM HYDROX 2400MG/30ML ORAL SUSPENSION 30 ML CUP PO PRN (12:40)
[2022-03-13] MEDS ORDERED: ONDANSETRON *ODT* 4 MG TABLET SL PRN (12:40)
[2022-03-13] MEDS ORDERED: METHOCARBAMOL 500 MG TABLET PO PRN (12:40)
[2022-03-13] MEDS ORDERED: DICYCLOMINE HCL 10 MG CAPSULE PO PRN (12:40)
[2022-03-13] MEDS ORDERED: NICOTINE 10 MG CARTRIDGE (INHALER) IH PRN (12:40)
[2022-03-13] MEDS ORDERED: FAMOTIDINE 20 MG TABLET PO SCH ×2 (14:45→18:25)
[2022-03-13] MEDS: LORazepam 2 MG TABLET PO SCH ×2 (18:23→22:46)
[2022-03-13] MEDS: BISMUTH SUBSALICYLATE 524 MG/30 ML PO PRN (18:25)
[2022-03-13] MEDS: LISINOPRIL 20 MG TABLET PO SCH (22:46)
[2022-03-13] MEDS: FAMOTIDINE 20 MG TABLET PO SCH (22:46)
[2022-03-13] MEDS: THIAMINE HCL 100 MG TABLET (FP) PO SCH (22:46)
[2022-03-13] MEDS: MELATONIN 5 MG TABLETS PO SCH (22:47)
[2022-03-13] MEDS: ARTIFICIAL TEARS (POLYVINYL ALCOHOL) OPTH DROPS OU SCH (22:47)
[2022-03-14] MEDS: LORazepam 2 MG TABLET PO SCH ×4 (05:55→22:41)
[2022-03-14] MEDS: LISINOPRIL 20 MG TABLET PO SCH ×2 (10:20→22:41)
[2022-03-14] MEDS: FAMOTIDINE 20 MG TABLET PO SCH ×2 (10:20→22:41)
[2022-03-14] MEDS: PRENATAL VITAMINS W/ FOLIC ACID TABLET (FP) PO SCH (10:20)
[2022-03-14] MEDS: ARTIFICIAL TEARS (POLYVINYL ALCOHOL) OPTH DROPS OU SCH ×2 (10:21→22:41)
[2022-03-14] MEDS: FLUTICASONE PROP 0.05% 16 GM NASAL SPRAY NS SCH (10:21)
[2022-03-14] MEDS: IBUPROFEN 400 MG TABLET (FP) PO PRN (10:54)
[2022-03-14 12:36] LABS: HEMATOCRIT 36.5 % (35.4-49); HEMOGLOBIN 12.6 GM/dL (11.7-16.9); MCH 31.8 pg (25.7-33.7); MCHC 34.4 g/dl (32.0-35.9); MEAN CELL VOLUME 92.5 fl (80-96); MEAN PLT VOLUME 7.9 fl (7.5-11.1); PLATELET COUNT 183 10^3/uL (134-434); RBC 3.95 M/mm3 (4.00-5.60); RDW 14.3 % (11.9-15.9)
[2022-03-14 13:14] LABS: BLOOD UREA NITROGEN 9.9 mg/dL (7-18); CALCIUM 8.4 mg/dL (8.5-10.1)
[2022-03-14 13:15] LABS: ALBUMIN 3.5 g/dl (3.4-5.0)
[2022-03-14 13:19] LABS: BILIRUBIN,TOTAL 1.1 mg/dL (0.2-1); TOT PROT 6.7 g/dl (6.4-8.2)
[2022-03-14] MEDS: BENZOCAINE/MENTHOL (CHLORASEPTIC ) LOZENGE MM PRN (13:28)
[2022-03-14] MEDS: MAG HYDROX/AL HYDROX/SIMETH 30 ML UNIT-DOSE CUP PO PRN (16:59)
[2022-03-14] MEDS: BISMUTH SUBSALICYLATE 524 MG/30 ML PO PRN (18:15)
[2022-03-14] MEDS: LOPERAMIDE HCL 2 MG CAPSULE PO PRN (20:40)
[2022-03-14] MEDS: THIAMINE HCL 100 MG TABLET (FP) PO SCH (22:41)
[2022-03-14] MEDS: MELATONIN 5 MG TABLETS PO SCH (22:41)
[2022-03-15] MEDS: LORazepam 1 MG TABLET PO SCH ×4 (05:23→22:53)
[2022-03-15] MEDS: LOPERAMIDE HCL 2 MG CAPSULE PO PRN ×2 (05:23→17:33)
[2022-03-15] MEDS: HYDROCORTISONE 2.5% TOPICAL CREAM 30 GM TUBE TP SCH ×2 (10:28→22:55)
[2022-03-15] MEDS: PRENATAL VITAMINS W/ FOLIC ACID TABLET (FP) PO SCH (10:29)
[2022-03-15] MEDS: ARTIFICIAL TEARS (POLYVINYL ALCOHOL) OPTH DROPS OU SCH ×2 (10:29→22:55)
[2022-03-15] MEDS: FAMOTIDINE 20 MG TABLET PO SCH ×2 (10:29→22:53)
[2022-03-15] MEDS: LISINOPRIL 20 MG TABLET PO SCH ×2 (10:29→22:53)
[2022-03-15] MEDS: IBUPROFEN 400 MG TABLET (FP) PO PRN (10:32)
[2022-03-15] MEDS: FLUTICASONE PROP 0.05% 16 GM NASAL SPRAY NS SCH (11:38)
[2022-03-15] MEDS: MAG HYDROX/AL HYDROX/SIMETH 30 ML UNIT-DOSE CUP PO PRN (13:23)
[2022-03-15] MEDS: IBUPROFEN 600 MG TABLET (FP) PO PRN (17:32)
[2022-03-15] MEDS: THIAMINE HCL 100 MG TABLET (FP) PO SCH (22:53)
[2022-03-15] MEDS: MELATONIN 5 MG TABLETS PO SCH (23:00)
[2022-03-16] MEDS ORDERED: LORazepam 0.5 MG TABLET PO PRN
[2022-03-16] MEDS: LORazepam 0.5 MG TABLET PO SCH ×4 (06:40→22:46)
[2022-03-16] MEDS: IBUPROFEN 400 MG TABLET (FP) PO PRN (06:41)
[2022-03-16] MEDS: PRENATAL VITAMINS W/ FOLIC ACID TABLET (FP) PO SCH (10:09)
[2022-03-16] MEDS: FAMOTIDINE 20 MG TABLET PO SCH ×2 (10:10→22:46)
[2022-03-16] MEDS: LISINOPRIL 20 MG TABLET PO SCH ×2 (10:10→22:46)
[2022-03-16] MEDS: FLUTICASONE PROP 0.05% 16 GM NASAL SPRAY NS SCH (10:10)
[2022-03-16] MEDS: ARTIFICIAL TEARS (POLYVINYL ALCOHOL) OPTH DROPS OU SCH ×2 (10:11→22:45)
[2022-03-16] MEDS: HYDROCORTISONE 2.5% TOPICAL CREAM 30 GM TUBE TP SCH ×2 (10:11→22:46)
[2022-03-16] MEDS: BENZOCAINE/MENTHOL (CHLORASEPTIC ) LOZENGE MM PRN (10:13)
[2022-03-16] MEDS: MAG HYDROX/AL HYDROX/SIMETH 30 ML UNIT-DOSE CUP PO PRN (15:01)
[2022-03-16] MEDS: MELATONIN 5 MG TABLETS PO SCH (22:41)
[2022-03-16] MEDS: THIAMINE HCL 100 MG TABLET (FP) PO SCH (22:46)
[2022-03-17] MEDS ORDERED: LORazepam 0.5 MG TABLET PO ONE ×2 (05:00→06:23)
[2022-03-17] MEDS: IBUPROFEN 600 MG TABLET (FP) PO PRN ×2 (06:57→19:00)
[2022-03-17] MEDS: FLUTICASONE PROP 0.05% 16 GM NASAL SPRAY NS SCH (10:55)
[2022-03-17] MEDS: LISINOPRIL 20 MG TABLET PO SCH ×2 (10:55→21:44)
[2022-03-17] MEDS: FAMOTIDINE 20 MG TABLET PO SCH ×2 (10:55→21:44)
[2022-03-17] MEDS: HYDROCORTISONE 2.5% TOPICAL CREAM 30 GM TUBE TP SCH ×2 (10:56→21:45)
[2022-03-17] MEDS: PRENATAL VITAMINS W/ FOLIC ACID TABLET (FP) PO SCH (10:56)
[2022-03-17] MEDS: ARTIFICIAL TEARS (POLYVINYL ALCOHOL) OPTH DROPS OU SCH ×2 (10:56→21:46)
[2022-03-17] MEDS: MAG HYDROX/AL HYDROX/SIMETH 30 ML UNIT-DOSE CUP PO PRN (14:38)
[2022-03-17] MEDS: THIAMINE HCL 100 MG TABLET (FP) PO SCH (21:45)
[2022-03-17] MEDS: MELATONIN 5 MG TABLETS PO SCH (21:45)
[2022-03-18] MEDS: LISINOPRIL 20 MG TABLET PO SCH ×2 (10:40→21:36)
[2022-03-18] MEDS: HYDROCORTISONE 2.5% TOPICAL CREAM 30 GM TUBE TP SCH ×2 (10:41→22:14)
[2022-03-18] MEDS: FAMOTIDINE 20 MG TABLET PO SCH ×2 (10:41→21:36)
[2022-03-18] MEDS: ARTIFICIAL TEARS (POLYVINYL ALCOHOL) OPTH DROPS OU SCH ×2 (10:41→21:37)
[2022-03-18] MEDS: FLUTICASONE PROP 0.05% 16 GM NASAL SPRAY NS SCH (10:41)
[2022-03-18] MEDS: PRENATAL VITAMINS W/ FOLIC ACID TABLET (FP) PO SCH (10:42)
[2022-03-18] MEDS: MAG HYDROX/AL HYDROX/SIMETH 30 ML UNIT-DOSE CUP PO PRN (15:56)
[2022-03-18] MEDS: IBUPROFEN 600 MG TABLET (FP) PO PRN (20:30)
[2022-03-18] MEDS: BENZOCAINE/MENTHOL (CHLORASEPTIC ) LOZENGE MM PRN (20:33)
[2022-03-18] MEDS: MELATONIN 5 MG TABLETS PO SCH (21:36)
[2022-03-18] MEDS: THIAMINE HCL 100 MG TABLET (FP) PO SCH (22:13)
[2022-03-19] MEDS: FAMOTIDINE 20 MG TABLET PO SCH ×2 (10:48→22:07)
[2022-03-19] MEDS: LISINOPRIL 20 MG TABLET PO SCH ×2 (10:48→22:07)
[2022-03-19] MEDS: PRENATAL VITAMINS W/ FOLIC ACID TABLET (FP) PO SCH (10:48)
[2022-03-19] MEDS: HYDROCORTISONE 2.5% TOPICAL CREAM 30 GM TUBE TP SCH ×2 (10:48→22:06)
[2022-03-19] MEDS: FLUTICASONE PROP 0.05% 16 GM NASAL SPRAY NS SCH (10:49)
[2022-03-19] MEDS: ARTIFICIAL TEARS (POLYVINYL ALCOHOL) OPTH DROPS OU SCH ×2 (10:49→22:06)
[2022-03-19] MEDS: BENZOCAINE/MENTHOL (CHLORASEPTIC ) LOZENGE MM PRN (10:50)
[2022-03-19] MEDS: IBUPROFEN 600 MG TABLET (FP) PO PRN (10:51)
[2022-03-19] MEDS ORDERED: BENZOCAINE/MENTHOL (CHLORASEPTIC ) LOZENGE MM PRN (16:11)
[2022-03-19] MEDS: MELATONIN 5 MG TABLETS PO SCH (22:06)
[2022-03-19] MEDS: THIAMINE HCL 100 MG TABLET (FP) PO SCH (22:07)
[2022-03-20] MEDS: FAMOTIDINE 20 MG TABLET PO SCH ×2 (09:47→22:22)
[2022-03-20] MEDS: LISINOPRIL 20 MG TABLET PO SCH ×2 (09:47→22:22)
[2022-03-20] MEDS: IBUPROFEN 600 MG TABLET (FP) PO PRN ×3 (09:47→22:23)
[2022-03-20] MEDS: FLUTICASONE PROP 0.05% 16 GM NASAL SPRAY NS SCH (09:48)
[2022-03-20] MEDS: guaiFENesin 200 MG/10 ML 10 ML UNIT-DOSE CUPS PO PRN ×3 (09:48→22:24)
[2022-03-20] MEDS: HYDROCORTISONE 2.5% TOPICAL CREAM 30 GM TUBE TP SCH ×2 (09:48→22:22)
[2022-03-20] MEDS: ARTIFICIAL TEARS (POLYVINYL ALCOHOL) OPTH DROPS OU SCH ×2 (09:49→22:22)
[2022-03-20] MEDS: PRENATAL VITAMINS W/ FOLIC ACID TABLET (FP) PO SCH (09:50)
[2022-03-20] MEDS: MELATONIN 5 MG TABLETS PO SCH (22:22)
[2022-03-20] MEDS: THIAMINE HCL 100 MG TABLET (FP) PO SCH (22:22)
[2022-03-21 08:58] VITALS: BP 145/85; PULSE 92; RESP 16; TEMP 97.5
[2022-03-21] MEDS: ARTIFICIAL TEARS (POLYVINYL ALCOHOL) OPTH DROPS OU SCH (10:46)
[2022-03-21] MEDS: FAMOTIDINE 20 MG TABLET PO SCH (10:46)
[2022-03-21] MEDS: PRENATAL VITAMINS W/ FOLIC ACID TABLET (FP) PO SCH (10:46)
[2022-03-21] MEDS: LISINOPRIL 20 MG TABLET PO SCH (10:46)
[2022-03-21] MEDS: FLUTICASONE PROP 0.05% 16 GM NASAL SPRAY NS SCH (10:46)
[2022-03-21] MEDS: HYDROCORTISONE 2.5% TOPICAL CREAM 30 GM TUBE TP SCH (10:46)
== END 2022-03-21 10:35 | disposition home or self-care (01) | DRG 775 ==
LOC: YASAS 10:19 → Y3N 12:53
PROVIDERS: ADMIT Allergy & Immunology; ATTEND Surgery
PROC: HZ2ZZZZ Detoxification Services for Substance Abuse Treatment (ICD-10-PCS; principal; 2022-03-13)
DX: F10.230 Alcohol dependence with withdrawal, uncomplicated (principal); F17.210 Nicotine dependence, cigarettes, uncomplicated; G62.9 Polyneuropathy, unspecified; I10 Essential (primary) hypertension; K21.9 Gastro-esophageal reflux disease without esophagitis; K64.9 Unspecified hemorrhoids; M54.50 Low back pain, unspecified; G89.29 Other chronic pain; Z86.19 Personal history of other infectious and parasitic diseases; Z28.310 Unvaccinated for COVID-19; Z28.9 Immunization not carried out for unspecified reason; Z88.7 Allergy status to serum and vaccine; Z88.0 Allergy status to penicillin; Z91.018 Allergy to other foods
CPT/HCPCS: 36415; 80053; 85027; 86593; 86780; C9803-CS; U0003; U0005

== ENCOUNTER 2022-05-15 12:09 | Inpatient (IN) | payer OTHER ==
[2022-05-15 16:42] VITALS: BMI 27.7
[2022-05-15] MEDS ORDERED: IBUPROFEN 600 MG TABLET (FP) PO PRN (17:35)
[2022-05-15] MEDS ORDERED: IBUPROFEN 400 MG TABLET (FP) PO PRN (17:35)
[2022-05-15] MEDS ORDERED: LOPERAMIDE HCL 2 MG CAPSULE PO PRN (17:35)
[2022-05-15] MEDS ORDERED: POLYETHYLENE GLYCOL (HEALTHYLAX) 3350 17 GM PACKET PO PRN (17:35)
[2022-05-15] MEDS ORDERED: ONDANSETRON *ODT* 4 MG TABLET SL PRN (17:35)
[2022-05-15] MEDS ORDERED: ACETAMINOPHEN 325 MG TABLET (FP) PO PRN ×2 (17:35)
[2022-05-15] MEDS ORDERED: NALOXONE HCL (KLOXXADO) 8 MG SPRAY NS PRN (17:35)
[2022-05-15] MEDS ORDERED: NICOTINE 10 MG CARTRIDGE (INHALER) IH PRN (17:35)
[2022-05-15] MEDS ORDERED: DICYCLOMINE HCL 10 MG CAPSULE PO PRN (17:35)
[2022-05-15] MEDS ORDERED: BENZOCAINE/MENTHOL (CHLORASEPTIC ) LOZENGE MM PRN (17:35)
[2022-05-15] MEDS ORDERED: METHOCARBAMOL 500 MG TABLET PO PRN (17:35)
[2022-05-15] MEDS ORDERED: chlordiazePOXIDE HCL 25 MG CAPSULE PO PRN (17:35)
[2022-05-15] MEDS: chlordiazePOXIDE HCL 25 MG CAPSULE PO SCH (22:29)
[2022-05-15] MEDS: MELATONIN 5 MG TABLETS PO SCH (22:38)
[2022-05-15] MEDS: THIAMINE HCL 100 MG TABLET (FP) PO SCH (22:38)
[2022-05-16] MEDS: chlordiazePOXIDE HCL 25 MG CAPSULE PO SCH ×4 (05:48→22:49)
[2022-05-16] MEDS: PRENATAL VITAMINS W/ FOLIC ACID TABLET (FP) PO SCH (10:02)
[2022-05-16] MEDS: LISINOPRIL 20 MG TABLET PO SCH ×2 (10:37→22:48)
[2022-05-16] MEDS: ARTIFICIAL TEARS (POLYVINYL ALCOHOL) OPTH DROPS OD SCH (10:38)
[2022-05-16] MEDS: FLUTICASONE PROP 0.05% 16 GM NASAL SPRAY NS SCH (10:38)
[2022-05-16 13:11] LABS: HEMOGLOBIN 12.9 GM/dL (11.7-16.9); MEAN CELL VOLUME 93.9 fl (80-96); PLATELET COUNT 176 10^3/uL (134-434); RBC 4.05 M/mm3 (4.00-5.60); RDW 13.8 % (11.9-15.9); WHITE BLOOD COUNT 6.9 K/mm3 (4.0-10.0)
[2022-05-16 13:19] LABS: BLOOD UREA NITROGEN 15.4 mg/dL (7-18); CALCIUM 8.6 mg/dL (8.5-10.1)
[2022-05-16 13:20] LABS: ALBUMIN 3.9 g/dl (3.4-5.0)
[2022-05-16 13:22] LABS: CREATININE 1.1 mg/dL (0.55-1.3)
[2022-05-16 13:24] LABS: TOT PROT 7.5 g/dl (6.4-8.2)
[2022-05-16] MEDS: NAPROXEN 375 MG TABLET PO PRN (22:48)
[2022-05-16] MEDS: BENZOCAINE 28 GM HEMORRHOIDAL OINTMENT RC SCH (22:49)
[2022-05-16] MEDS: THIAMINE HCL 100 MG TABLET (FP) PO SCH (22:49)
[2022-05-16] MEDS: MELATONIN 5 MG TABLETS PO SCH (22:52)
[2022-05-17] MEDS: chlordiazePOXIDE HCL 25 MG CAPSULE PO SCH ×4 (05:41→22:14)
[2022-05-17] MEDS: ARTIFICIAL TEARS (POLYVINYL ALCOHOL) OPTH DROPS OD SCH (10:16)
[2022-05-17] MEDS: PRENATAL VITAMINS W/ FOLIC ACID TABLET (FP) PO SCH (10:16)
[2022-05-17] MEDS: LISINOPRIL 20 MG TABLET PO SCH ×2 (10:16→22:14)
[2022-05-17] MEDS: FLUTICASONE PROP 0.05% 16 GM NASAL SPRAY NS SCH (10:16)
[2022-05-17] MEDS: NAPROXEN 375 MG TABLET PO PRN (10:17)
[2022-05-17] MEDS: VITAMINS A AND D TOPICAL OINTMENT 60 GM TUBE TP SCH (13:06)
[2022-05-17] MEDS: MAG HYDROX/AL HYDROX/SIMETH 30 ML UNIT-DOSE CUP PO PRN (14:23)
[2022-05-17] MEDS: THIAMINE HCL 100 MG TABLET (FP) PO SCH (22:14)
[2022-05-17] MEDS: MELATONIN 5 MG TABLETS PO SCH (22:14)
[2022-05-17] MEDS: BENZOCAINE 28 GM HEMORRHOIDAL OINTMENT RC SCH (22:15)
[2022-05-18] MEDS ORDERED: chlordiazePOXIDE HCL 10 MG CAPSULE PO PRN
[2022-05-18] MEDS: chlordiazePOXIDE HCL 10 MG CAPSULE PO SCH ×3 (05:45→18:19)
[2022-05-18] MEDS: MAGNESIUM HYDROX 2400MG/30ML ORAL SUSPENSION 30 ML CUP PO PRN (05:51)
[2022-05-18] MEDS: PRENATAL VITAMINS W/ FOLIC ACID TABLET (FP) PO SCH (10:23)
[2022-05-18] MEDS: LISINOPRIL 20 MG TABLET PO SCH ×2 (10:23→23:24)
[2022-05-18] MEDS: FLUTICASONE PROP 0.05% 16 GM NASAL SPRAY NS SCH (10:24)
[2022-05-18] MEDS: ARTIFICIAL TEARS (POLYVINYL ALCOHOL) OPTH DROPS OD SCH ×2 (10:24→18:19)
[2022-05-18] MEDS: VITAMINS A AND D TOPICAL OINTMENT 60 GM TUBE TP SCH (10:25)
[2022-05-18] MEDS: MAG HYDROX/AL HYDROX/SIMETH 30 ML UNIT-DOSE CUP PO PRN (13:04)
[2022-05-18] MEDS: NAPROXEN 375 MG TABLET PO PRN (13:05)
[2022-05-18] MEDS: BISMUTH SUBSALICYLATE 524 MG/30 ML PO PRN (17:49)
[2022-05-18] MEDS: MELATONIN 5 MG TABLETS PO SCH (23:23)
[2022-05-18] MEDS: BENZOCAINE 28 GM HEMORRHOIDAL OINTMENT RC SCH (23:23)
[2022-05-18] MEDS: guaiFENesin 600 MG TABLET.ER (FP) PO SCH (23:24)
[2022-05-18] MEDS: THIAMINE HCL 100 MG TABLET (FP) PO SCH (23:24)
[2022-05-19] MEDS: chlordiazePOXIDE HCL 10 MG CAPSULE PO SCH ×4 (06:01→17:51)
[2022-05-19] MEDS: MAGNESIUM HYDROX 2400MG/30ML ORAL SUSPENSION 30 ML CUP PO PRN (06:03)
[2022-05-19] MEDS: NAPROXEN 375 MG TABLET PO PRN (06:05)
[2022-05-19] MEDS: ARTIFICIAL TEARS (POLYVINYL ALCOHOL) OPTH DROPS OD SCH ×5 (08:37→22:54)
[2022-05-19] MEDS: guaiFENesin 600 MG TABLET.ER (FP) PO SCH ×2 (10:25→22:38)
[2022-05-19] MEDS: FLUTICASONE PROP 0.05% 16 GM NASAL SPRAY NS SCH (10:26)
[2022-05-19] MEDS: LISINOPRIL 20 MG TABLET PO SCH ×2 (10:26→22:38)
[2022-05-19] MEDS: PRENATAL VITAMINS W/ FOLIC ACID TABLET (FP) PO SCH (10:28)
[2022-05-19] MEDS: VITAMINS A AND D TOPICAL OINTMENT 60 GM TUBE TP SCH (10:28)
[2022-05-19] MEDS: BISMUTH SUBSALICYLATE 524 MG/30 ML PO PRN (13:13)
[2022-05-19] MEDS: THIAMINE HCL 100 MG TABLET (FP) PO SCH (22:38)
[2022-05-19] MEDS: BENZOCAINE 28 GM HEMORRHOIDAL OINTMENT RC SCH (22:38)
[2022-05-19] MEDS: MELATONIN 5 MG TABLETS PO SCH (22:38)
[2022-05-19] MEDS: FAMOTIDINE 20 MG TABLET PO SCH (22:54)
[2022-05-20] MEDS ORDERED: chlordiazePOXIDE HCL 10 MG CAPSULE PO ONE (05:00)
[2022-05-20] MEDS: MAGNESIUM HYDROX 2400MG/30ML ORAL SUSPENSION 30 ML CUP PO PRN (05:14)
[2022-05-20] MEDS: ARTIFICIAL TEARS (POLYVINYL ALCOHOL) OPTH DROPS OD SCH ×2 (05:16→10:28)
[2022-05-20 06:53] VITALS: TEMP 97.3
[2022-05-20] MEDS: LISINOPRIL 20 MG TABLET PO SCH (10:24)
[2022-05-20] MEDS: PRENATAL VITAMINS W/ FOLIC ACID TABLET (FP) PO SCH (10:24)
[2022-05-20] MEDS: FAMOTIDINE 20 MG TABLET PO SCH (10:24)
[2022-05-20] MEDS: FLUTICASONE PROP 0.05% 16 GM NASAL SPRAY NS SCH (10:25)
[2022-05-20] MEDS: BENZOCAINE 28 GM HEMORRHOIDAL OINTMENT RC SCH (10:26)
[2022-05-20] MEDS: NAPROXEN 375 MG TABLET PO PRN (10:27)
[2022-05-20] MEDS: guaiFENesin 600 MG TABLET.ER (FP) PO SCH (11:46)
[2022-05-20] MEDS: VITAMINS A AND D TOPICAL OINTMENT 60 GM TUBE TP SCH (11:47)
[2022-05-20] MEDS: BISMUTH SUBSALICYLATE 524 MG/30 ML PO PRN (12:22)
[2022-05-20 12:46] VITALS: BP 121/66; PULSE 94; RESP 18
== END 2022-05-20 13:59 | disposition home or self-care (01) | DRG 775 ==
LOC: YASAS 12:09 → Y6N 17:38
PROVIDERS: ADMIT Allergy & Immunology; ATTEND Surgery
PROC: HZ2ZZZZ Detoxification Services for Substance Abuse Treatment (ICD-10-PCS; principal; 2022-05-15)
DX: F10.230 Alcohol dependence with withdrawal, uncomplicated (principal); F17.210 Nicotine dependence, cigarettes, uncomplicated; G62.9 Polyneuropathy, unspecified; I10 Essential (primary) hypertension; K21.9 Gastro-esophageal reflux disease without esophagitis; K64.9 Unspecified hemorrhoids; M54.50 Low back pain, unspecified; G89.29 Other chronic pain; Z86.19 Personal history of other infectious and parasitic diseases; Z88.0 Allergy status to penicillin; Z88.7 Allergy status to serum and vaccine; Z28.310 Unvaccinated for COVID-19; Z28.9 Immunization not carried out for unspecified reason
CPT/HCPCS: 36415; 80053; 85027; 86593; 86780; 93005; 93010; C9803-CS; U0003; U0005

== ENCOUNTER 2022-05-20 13:21 | Inpatient (IN) | payer OTHER ==
[2022-05-20] MEDS ORDERED: NICOTINE 10 MG CARTRIDGE (INHALER) IH PRN (17:33)
[2022-05-20] MEDS ORDERED: IBUPROFEN 400 MG TABLET (FP) PO PRN (17:33)
[2022-05-20] MEDS ORDERED: POLYETHYLENE GLYCOL (HEALTHYLAX) 3350 17 GM PACKET PO PRN (17:33)
[2022-05-20] MEDS ORDERED: MAG HYDROX/AL HYDROX/SIMETH 30 ML UNIT-DOSE CUP PO PRN (17:33)
[2022-05-20] MEDS ORDERED: hydrOXYzine PAMOATE 25 MG CAPSULE (FP) PO PRN (17:33)
[2022-05-20] MEDS ORDERED: P-EPHED 60MG/TRIPROLIDI 2.5MG TABLET PO PRN (17:33)
[2022-05-20] MEDS: MELATONIN 5 MG TABLETS PO SCH (21:52)
[2022-05-20] MEDS: THIAMINE HCL 100 MG TABLET (FP) PO SCH (21:52)
[2022-05-21] MEDS: PRENATAL VITAMINS W/ FOLIC ACID TABLET (FP) PO SCH (09:54)
[2022-05-21] MEDS: NICOTINE 7 MG/24 HOURS TOPICAL PATCH TD SCH (09:56)
[2022-05-21] MEDS: LISINOPRIL 20 MG TABLET PO SCH ×2 (12:14→21:39)
[2022-05-21] MEDS: FLUTICASONE PROP 0.05% 16 GM NASAL SPRAY NS SCH (12:16)
[2022-05-21] MEDS: OXYMETAZOLINE 0.05% NASAL SOLUTION 15 ML BOTTLE NS SCH ×2 (12:16→21:40)
[2022-05-21] MEDS: ARTIFICIAL TEARS (POLYVINYL ALCOHOL) OPTH DROPS OD SCH ×3 (12:16→23:58)
[2022-05-21] MEDS: LANOLIN (EMOLL) 30 GM TUBE TP SCH (12:53)
[2022-05-21] MEDS: GABAPENTIN 300 MG CAPSULE PO SCH ×2 (13:05→21:38)
[2022-05-21] MEDS: BENZOCAINE/MENTHOL (CHLORASEPTIC ) LOZENGE MM PRN (14:37)
[2022-05-21] MEDS: guaiFENesin 200 MG/10 ML 10 ML UNIT-DOSE CUPS PO PRN (15:23)
[2022-05-21] MEDS: THIAMINE HCL 100 MG TABLET (FP) PO SCH (21:37)
[2022-05-21] MEDS: NAPROXEN 375 MG TABLET PO SCH (21:38)
[2022-05-21] MEDS: FAMOTIDINE 20 MG TABLET PO SCH (21:39)
[2022-05-21] MEDS: MELATONIN 5 MG TABLETS PO SCH (21:40)
[2022-05-21] MEDS: BENZOCAINE 28 GM HEMORRHOIDAL OINTMENT RC SCH (21:40)
[2022-05-22] MEDS: GABAPENTIN 300 MG CAPSULE PO SCH ×3 (06:40→23:34)
[2022-05-22] MEDS: ARTIFICIAL TEARS (POLYVINYL ALCOHOL) OPTH DROPS OD SCH ×4 (06:41→23:34)
[2022-05-22] MEDS: BENZOCAINE/MENTHOL (CHLORASEPTIC ) LOZENGE MM PRN ×2 (06:43→15:00)
[2022-05-22] MEDS: guaiFENesin 200 MG/10 ML 10 ML UNIT-DOSE CUPS PO PRN ×2 (06:44→15:00)
[2022-05-22] MEDS: LISINOPRIL 20 MG TABLET PO SCH ×2 (10:00→23:34)
[2022-05-22] MEDS: PRENATAL VITAMINS W/ FOLIC ACID TABLET (FP) PO SCH (10:00)
[2022-05-22] MEDS: FAMOTIDINE 20 MG TABLET PO SCH ×2 (10:00→23:34)
[2022-05-22] MEDS: NAPROXEN 375 MG TABLET PO SCH ×2 (10:00→23:33)
[2022-05-22] MEDS: LANOLIN (EMOLL) 30 GM TUBE TP SCH (10:01)
[2022-05-22] MEDS: BENZOCAINE 28 GM HEMORRHOIDAL OINTMENT RC SCH ×2 (10:02→23:33)
[2022-05-22] MEDS: FLUTICASONE PROP 0.05% 16 GM NASAL SPRAY NS SCH (10:02)
[2022-05-22] MEDS: OXYMETAZOLINE 0.05% NASAL SOLUTION 15 ML BOTTLE NS SCH ×2 (10:03→23:33)
[2022-05-22] MEDS: NICOTINE 7 MG/24 HOURS TOPICAL PATCH TD SCH (10:03)
[2022-05-22] MEDS: MELATONIN 5 MG TABLETS PO SCH (23:33)
[2022-05-22] MEDS: THIAMINE HCL 100 MG TABLET (FP) PO SCH (23:34)
[2022-05-23] MEDS: ARTIFICIAL TEARS (POLYVINYL ALCOHOL) OPTH DROPS OD SCH ×3 (06:05→17:04)
[2022-05-23] MEDS: GABAPENTIN 300 MG CAPSULE PO SCH ×3 (06:05→21:29)
[2022-05-23] MEDS: guaiFENesin 200 MG/10 ML 10 ML UNIT-DOSE CUPS PO PRN (06:06)
[2022-05-23] MEDS: PRENATAL VITAMINS W/ FOLIC ACID TABLET (FP) PO SCH (09:45)
[2022-05-23] MEDS: NAPROXEN 375 MG TABLET PO SCH ×2 (09:45→21:28)
[2022-05-23] MEDS: LANOLIN (EMOLL) 30 GM TUBE TP SCH (09:45)
[2022-05-23] MEDS: FAMOTIDINE 20 MG TABLET PO SCH (09:45)
[2022-05-23] MEDS: NICOTINE 7 MG/24 HOURS TOPICAL PATCH TD SCH (09:46)
[2022-05-23] MEDS: FLUTICASONE PROP 0.05% 16 GM NASAL SPRAY NS SCH (09:46)
[2022-05-23] MEDS: BENZOCAINE 28 GM HEMORRHOIDAL OINTMENT RC SCH ×2 (09:46→21:48)
[2022-05-23] MEDS: OXYMETAZOLINE 0.05% NASAL SOLUTION 15 ML BOTTLE NS SCH ×2 (09:46→21:47)
[2022-05-23] MEDS: LISINOPRIL 20 MG TABLET PO SCH ×2 (09:46→21:28)
[2022-05-23] MEDS ORDERED: NICOTINE 7 MG/24 HOURS TOPICAL PATCH TD PRN (12:40)
[2022-05-23] MEDS: THIAMINE HCL 100 MG TABLET (FP) PO SCH (21:29)
[2022-05-23] MEDS: MELATONIN 5 MG TABLETS PO SCH (21:29)
[2022-05-23] MEDS: LOPERAMIDE HCL 2 MG CAPSULE PO PRN (21:29)
[2022-05-24] MEDS: ARTIFICIAL TEARS (POLYVINYL ALCOHOL) OPTH DROPS OD SCH ×5 (00:20→23:33)
[2022-05-24] MEDS: FAMOTIDINE 20 MG TABLET PO SCH ×2 (06:14→21:21)
[2022-05-24] MEDS: GABAPENTIN 300 MG CAPSULE PO SCH ×3 (06:14→21:21)
[2022-05-24] MEDS: LOPERAMIDE HCL 2 MG CAPSULE PO PRN ×2 (06:17→21:22)
[2022-05-24] MEDS: NAPROXEN 375 MG TABLET PO SCH ×2 (09:51→21:21)
[2022-05-24] MEDS: PRENATAL VITAMINS W/ FOLIC ACID TABLET (FP) PO SCH (09:51)
[2022-05-24] MEDS: OXYMETAZOLINE 0.05% NASAL SOLUTION 15 ML BOTTLE NS SCH ×2 (09:52→21:23)
[2022-05-24] MEDS: BENZOCAINE 28 GM HEMORRHOIDAL OINTMENT RC SCH ×2 (09:52→21:23)
[2022-05-24] MEDS: LANOLIN (EMOLL) 30 GM TUBE TP SCH (09:53)
[2022-05-24] MEDS: LISINOPRIL 20 MG TABLET PO SCH ×2 (09:54→21:21)
[2022-05-24] MEDS: FLUTICASONE PROP 0.05% 16 GM NASAL SPRAY NS SCH (09:54)
[2022-05-24] MEDS: guaiFENesin 200 MG/10 ML 10 ML UNIT-DOSE CUPS PO PRN (09:55)
[2022-05-24] MEDS: THIAMINE HCL 100 MG TABLET (FP) PO SCH (21:23)
[2022-05-24] MEDS: MELATONIN 5 MG TABLETS PO SCH (21:23)
[2022-05-25] MEDS: GABAPENTIN 300 MG CAPSULE PO SCH ×3 (06:09→21:32)
[2022-05-25] MEDS: FAMOTIDINE 20 MG TABLET PO SCH ×2 (06:09→21:32)
[2022-05-25] MEDS: ARTIFICIAL TEARS (POLYVINYL ALCOHOL) OPTH DROPS OD SCH ×4 (06:09→23:15)
[2022-05-25] MEDS: BENZOCAINE 28 GM HEMORRHOIDAL OINTMENT RC SCH ×2 (09:55→21:34)
[2022-05-25] MEDS: OXYMETAZOLINE 0.05% NASAL SOLUTION 15 ML BOTTLE NS SCH ×2 (09:55→21:34)
[2022-05-25] MEDS: FLUTICASONE PROP 0.05% 16 GM NASAL SPRAY NS SCH (09:56)
[2022-05-25] MEDS: LANOLIN (EMOLL) 30 GM TUBE TP SCH (09:56)
[2022-05-25] MEDS: NAPROXEN 375 MG TABLET PO SCH ×2 (09:57→21:32)
[2022-05-25] MEDS: LISINOPRIL 20 MG TABLET PO SCH ×2 (09:57→21:32)
[2022-05-25] MEDS: PRENATAL VITAMINS W/ FOLIC ACID TABLET (FP) PO SCH (09:57)
[2022-05-25] MEDS: BENZOCAINE/MENTHOL (CHLORASEPTIC ) LOZENGE MM PRN ×2 (15:40→21:34)
[2022-05-25] MEDS: THIAMINE HCL 100 MG TABLET (FP) PO SCH (21:32)
[2022-05-25] MEDS: MELATONIN 5 MG TABLETS PO SCH (21:34)
[2022-05-25] MEDS: guaiFENesin 200 MG/10 ML 10 ML UNIT-DOSE CUPS PO PRN (21:34)
[2022-05-26] MEDS: ARTIFICIAL TEARS (POLYVINYL ALCOHOL) OPTH DROPS OD SCH ×4 (06:40→23:47)
[2022-05-26] MEDS: FAMOTIDINE 20 MG TABLET PO SCH ×2 (06:40→21:12)
[2022-05-26] MEDS: GABAPENTIN 300 MG CAPSULE PO SCH ×3 (06:40→21:12)
[2022-05-26] MEDS: BENZOCAINE 28 GM HEMORRHOIDAL OINTMENT RC SCH ×2 (09:43→21:13)
[2022-05-26] MEDS: PRENATAL VITAMINS W/ FOLIC ACID TABLET (FP) PO SCH (09:43)
[2022-05-26] MEDS: NAPROXEN 375 MG TABLET PO SCH ×2 (09:43→21:12)
[2022-05-26] MEDS: LISINOPRIL 20 MG TABLET PO SCH ×2 (09:43→21:12)
[2022-05-26] MEDS: LANOLIN (EMOLL) 30 GM TUBE TP SCH (09:44)
[2022-05-26] MEDS: OXYMETAZOLINE 0.05% NASAL SOLUTION 15 ML BOTTLE NS SCH ×2 (09:44→21:13)
[2022-05-26] MEDS: FLUTICASONE PROP 0.05% 16 GM NASAL SPRAY NS SCH (09:44)
[2022-05-26] MEDS: guaiFENesin 200 MG/10 ML 10 ML UNIT-DOSE CUPS PO PRN (09:47)
[2022-05-26] MEDS: BENZOCAINE/MENTHOL (CHLORASEPTIC ) LOZENGE MM PRN (09:47)
[2022-05-26] MEDS: VITAMINS A AND D TOPICAL OINTMENT 60 GM TUBE TP SCH (12:34)
[2022-05-26] MEDS: THIAMINE HCL 100 MG TABLET (FP) PO SCH (21:12)
[2022-05-26] MEDS: MELATONIN 5 MG TABLETS PO SCH (21:13)
[2022-05-27] MEDS: FAMOTIDINE 20 MG TABLET PO SCH ×2 (06:17→21:51)
[2022-05-27] MEDS: GABAPENTIN 300 MG CAPSULE PO SCH ×3 (06:17→21:53)
[2022-05-27] MEDS: ARTIFICIAL TEARS (POLYVINYL ALCOHOL) OPTH DROPS OD SCH ×4 (06:17→23:52)
[2022-05-27] MEDS: MAGNESIUM HYDROX 2400MG/30ML ORAL SUSPENSION 30 ML CUP PO PRN (06:42)
[2022-05-27] MEDS: NAPROXEN 375 MG TABLET PO SCH ×2 (09:46→21:52)
[2022-05-27] MEDS: PRENATAL VITAMINS W/ FOLIC ACID TABLET (FP) PO SCH (09:46)
[2022-05-27] MEDS: BENZOCAINE 28 GM HEMORRHOIDAL OINTMENT RC SCH ×2 (09:47→21:52)
[2022-05-27] MEDS: VITAMINS A AND D TOPICAL OINTMENT 60 GM TUBE TP SCH (09:47)
[2022-05-27] MEDS: LISINOPRIL 20 MG TABLET PO SCH ×2 (09:48→21:52)
[2022-05-27] MEDS: OXYMETAZOLINE 0.05% NASAL SOLUTION 15 ML BOTTLE NS SCH ×2 (09:48→21:52)
[2022-05-27] MEDS: guaiFENesin 200 MG/10 ML 10 ML UNIT-DOSE CUPS PO PRN ×2 (09:49→21:55)
[2022-05-27] MEDS: BENZOCAINE/MENTHOL (CHLORASEPTIC ) LOZENGE MM PRN ×2 (09:50→21:54)
[2022-05-27] MEDS: FLUTICASONE PROP 0.05% 16 GM NASAL SPRAY NS SCH (09:50)
[2022-05-27] MEDS: BISMUTH SUBSALICYLATE 262 MG/15 ML BTL PO PRN (18:37)
[2022-05-27] MEDS: THIAMINE HCL 100 MG TABLET (FP) PO SCH (21:51)
[2022-05-27] MEDS: MELATONIN 5 MG TABLETS PO SCH (21:51)
[2022-05-28] MEDS: FAMOTIDINE 20 MG TABLET PO SCH ×2 (06:31→21:29)
[2022-05-28] MEDS: GABAPENTIN 300 MG CAPSULE PO SCH ×3 (06:31→21:29)
[2022-05-28] MEDS: ARTIFICIAL TEARS (POLYVINYL ALCOHOL) OPTH DROPS OD SCH ×3 (06:31→18:50)
[2022-05-28] MEDS: OXYMETAZOLINE 0.05% NASAL SOLUTION 15 ML BOTTLE NS SCH ×2 (10:26→21:31)
[2022-05-28] MEDS: LISINOPRIL 20 MG TABLET PO SCH ×2 (10:26→21:30)
[2022-05-28] MEDS: NAPROXEN 375 MG TABLET PO SCH ×2 (10:26→21:30)
[2022-05-28] MEDS: FLUTICASONE PROP 0.05% 16 GM NASAL SPRAY NS SCH (10:27)
[2022-05-28] MEDS: VITAMINS A AND D TOPICAL OINTMENT 60 GM TUBE TP SCH (10:27)
[2022-05-28] MEDS: PRENATAL VITAMINS W/ FOLIC ACID TABLET (FP) PO SCH (10:28)
[2022-05-28] MEDS: guaiFENesin 200 MG/10 ML 10 ML UNIT-DOSE CUPS PO PRN (10:29)
[2022-05-28] MEDS: BENZOCAINE/MENTHOL (CHLORASEPTIC ) LOZENGE MM PRN (10:29)
[2022-05-28] MEDS: BENZOCAINE 28 GM HEMORRHOIDAL OINTMENT RC SCH ×2 (10:32→21:31)
[2022-05-28] MEDS: THIAMINE HCL 100 MG TABLET (FP) PO SCH (21:30)
[2022-05-28] MEDS: MELATONIN 5 MG TABLETS PO SCH (21:31)
[2022-05-29] MEDS: ARTIFICIAL TEARS (POLYVINYL ALCOHOL) OPTH DROPS OD SCH ×5 (00:10→23:54)
[2022-05-29] MEDS: FAMOTIDINE 20 MG TABLET PO SCH ×2 (06:24→21:25)
[2022-05-29] MEDS: GABAPENTIN 300 MG CAPSULE PO SCH ×3 (06:24→21:25)
[2022-05-29] MEDS: OXYMETAZOLINE 0.05% NASAL SOLUTION 15 ML BOTTLE NS SCH ×2 (10:01→21:26)
[2022-05-29] MEDS: LISINOPRIL 20 MG TABLET PO SCH ×2 (10:01→21:26)
[2022-05-29] MEDS: FLUTICASONE PROP 0.05% 16 GM NASAL SPRAY NS SCH (10:01)
[2022-05-29] MEDS: BENZOCAINE 28 GM HEMORRHOIDAL OINTMENT RC SCH ×2 (10:01→21:27)
[2022-05-29] MEDS: PRENATAL VITAMINS W/ FOLIC ACID TABLET (FP) PO SCH (10:02)
[2022-05-29] MEDS: NAPROXEN 375 MG TABLET PO SCH ×2 (10:02→21:25)
[2022-05-29] MEDS: VITAMINS A AND D TOPICAL OINTMENT 60 GM TUBE TP SCH (10:02)
[2022-05-29] MEDS: THIAMINE HCL 100 MG TABLET (FP) PO SCH (21:26)
[2022-05-29] MEDS: MELATONIN 5 MG TABLETS PO SCH (21:27)
[2022-05-30] MEDS: ARTIFICIAL TEARS (POLYVINYL ALCOHOL) OPTH DROPS OD SCH ×4 (06:12→23:27)
[2022-05-30] MEDS: GABAPENTIN 300 MG CAPSULE PO SCH ×3 (06:12→21:28)
[2022-05-30] MEDS: FAMOTIDINE 20 MG TABLET PO SCH ×2 (06:12→21:28)
[2022-05-30] MEDS: NAPROXEN 375 MG TABLET PO SCH ×2 (09:48→21:28)
[2022-05-30] MEDS: PRENATAL VITAMINS W/ FOLIC ACID TABLET (FP) PO SCH (09:48)
[2022-05-30] MEDS: OXYMETAZOLINE 0.05% NASAL SOLUTION 15 ML BOTTLE NS SCH ×2 (09:49→21:29)
[2022-05-30] MEDS: MAGNESIUM HYDROX 2400MG/30ML ORAL SUSPENSION 30 ML CUP PO PRN (09:49)
[2022-05-30] MEDS: LISINOPRIL 20 MG TABLET PO SCH ×2 (09:50→21:28)
[2022-05-30] MEDS: VITAMINS A AND D TOPICAL OINTMENT 60 GM TUBE TP SCH (09:50)
[2022-05-30] MEDS: BENZOCAINE 28 GM HEMORRHOIDAL OINTMENT RC SCH ×2 (09:51→21:29)
[2022-05-30] MEDS: FLUTICASONE PROP 0.05% 16 GM NASAL SPRAY NS SCH (10:24)
[2022-05-30] MEDS: THIAMINE HCL 100 MG TABLET (FP) PO SCH (21:28)
[2022-05-30] MEDS: MELATONIN 5 MG TABLETS PO SCH (21:29)
[2022-05-31] MEDS: ARTIFICIAL TEARS (POLYVINYL ALCOHOL) OPTH DROPS OD SCH ×4 (06:37→23:27)
[2022-05-31] MEDS: FAMOTIDINE 20 MG TABLET PO SCH ×2 (06:37→21:33)
[2022-05-31] MEDS: GABAPENTIN 300 MG CAPSULE PO SCH ×3 (06:37→21:33)
[2022-05-31] MEDS: PRENATAL VITAMINS W/ FOLIC ACID TABLET (FP) PO SCH (09:57)
[2022-05-31] MEDS: NAPROXEN 375 MG TABLET PO SCH ×2 (09:58→21:32)
[2022-05-31] MEDS: OXYMETAZOLINE 0.05% NASAL SOLUTION 15 ML BOTTLE NS SCH ×2 (09:58→21:33)
[2022-05-31] MEDS: LISINOPRIL 20 MG TABLET PO SCH ×2 (09:58→21:33)
[2022-05-31] MEDS: FLUTICASONE PROP 0.05% 16 GM NASAL SPRAY NS SCH ×2 (09:59→21:34)
[2022-05-31] MEDS: VITAMINS A AND D TOPICAL OINTMENT 60 GM TUBE TP SCH (10:00)
[2022-05-31] MEDS: BENZOCAINE 28 GM HEMORRHOIDAL OINTMENT RC SCH ×2 (10:00→21:34)
[2022-05-31] MEDS: ACETAMINOPHEN 325 MG TABLET (FP) PO PRN (13:18)
[2022-05-31] MEDS: BISMUTH SUBSALICYLATE 262 MG/15 ML BTL PO PRN (19:02)
[2022-05-31] MEDS: THIAMINE HCL 100 MG TABLET (FP) PO SCH (21:33)
[2022-05-31] MEDS: MELATONIN 5 MG TABLETS PO SCH (21:34)
[2022-06-01] MEDS: FAMOTIDINE 20 MG TABLET PO SCH ×2 (06:32→21:34)
[2022-06-01] MEDS: GABAPENTIN 300 MG CAPSULE PO SCH ×3 (06:32→21:34)
[2022-06-01] MEDS: ARTIFICIAL TEARS (POLYVINYL ALCOHOL) OPTH DROPS OD SCH ×4 (06:32→23:57)
[2022-06-01] MEDS: OXYMETAZOLINE 0.05% NASAL SOLUTION 15 ML BOTTLE NS SCH ×2 (09:55→21:35)
[2022-06-01] MEDS: BENZOCAINE 28 GM HEMORRHOIDAL OINTMENT RC SCH ×2 (09:55→21:35)
[2022-06-01] MEDS: VITAMINS A AND D TOPICAL OINTMENT 60 GM TUBE TP SCH (09:56)
[2022-06-01] MEDS: NAPROXEN 375 MG TABLET PO SCH ×2 (09:56→21:34)
[2022-06-01] MEDS: LISINOPRIL 20 MG TABLET PO SCH ×2 (09:56→21:34)
[2022-06-01] MEDS: PRENATAL VITAMINS W/ FOLIC ACID TABLET (FP) PO SCH (09:56)
[2022-06-01] MEDS: BENZOCAINE/MENTHOL (CHLORASEPTIC ) LOZENGE MM PRN ×2 (09:57→14:37)
[2022-06-01] MEDS: ACETAMINOPHEN 325 MG TABLET (FP) PO PRN (14:39)
[2022-06-01] MEDS: THIAMINE HCL 100 MG TABLET (FP) PO SCH (21:34)
[2022-06-01] MEDS: MELATONIN 5 MG TABLETS PO SCH (21:35)
[2022-06-02] MEDS: ACETAMINOPHEN 325 MG TABLET (FP) PO PRN ×2 (06:19→14:02)
[2022-06-02] MEDS: FAMOTIDINE 20 MG TABLET PO SCH ×2 (06:21→21:25)
[2022-06-02] MEDS: GABAPENTIN 300 MG CAPSULE PO SCH ×3 (06:21→21:26)
[2022-06-02] MEDS: ARTIFICIAL TEARS (POLYVINYL ALCOHOL) OPTH DROPS OD SCH ×4 (06:21→23:54)
[2022-06-02 06:54] VITALS: RESP 18
[2022-06-02] MEDS: NAPROXEN 375 MG TABLET PO SCH ×2 (09:41→21:26)
[2022-06-02] MEDS: FLUTICASONE PROP 0.05% 16 GM NASAL SPRAY NS SCH (09:43)
[2022-06-02] MEDS: LISINOPRIL 20 MG TABLET PO SCH ×2 (09:43→21:25)
[2022-06-02] MEDS: PRENATAL VITAMINS W/ FOLIC ACID TABLET (FP) PO SCH (09:44)
[2022-06-02] MEDS: BENZOCAINE 28 GM HEMORRHOIDAL OINTMENT RC SCH ×2 (10:22→21:26)
[2022-06-02] MEDS: OXYMETAZOLINE 0.05% NASAL SOLUTION 15 ML BOTTLE NS SCH ×2 (10:22→21:26)
[2022-06-02] MEDS: VITAMINS A AND D TOPICAL OINTMENT 60 GM TUBE TP SCH (10:23)
[2022-06-02] MEDS: BENZOCAINE/MENTHOL (CHLORASEPTIC ) LOZENGE MM PRN (13:59)
[2022-06-02] MEDS: BISMUTH SUBSALICYLATE 262 MG/15 ML BTL PO PRN (20:09)
[2022-06-02] MEDS: MELATONIN 5 MG TABLETS PO SCH (21:26)
[2022-06-02] MEDS: THIAMINE HCL 100 MG TABLET (FP) PO SCH (21:26)
[2022-06-03] MEDS: GABAPENTIN 300 MG CAPSULE PO SCH (06:32)
[2022-06-03] MEDS: ARTIFICIAL TEARS (POLYVINYL ALCOHOL) OPTH DROPS OD SCH (06:32)
[2022-06-03] MEDS: FAMOTIDINE 20 MG TABLET PO SCH (06:32)
[2022-06-03] MEDS: ACETAMINOPHEN 325 MG TABLET (FP) PO PRN (06:32)
[2022-06-03 06:51] VITALS: BP 160/79; PULSE 86; TEMP 96.9
[2022-06-03] MEDS: OXYMETAZOLINE 0.05% NASAL SOLUTION 15 ML BOTTLE NS SCH (10:03)
[2022-06-03] MEDS: PRENATAL VITAMINS W/ FOLIC ACID TABLET (FP) PO SCH (10:03)
[2022-06-03] MEDS: FLUTICASONE PROP 0.05% 16 GM NASAL SPRAY NS SCH (10:03)
[2022-06-03] MEDS: BENZOCAINE 28 GM HEMORRHOIDAL OINTMENT RC SCH (10:03)
[2022-06-03] MEDS: NAPROXEN 375 MG TABLET PO SCH (10:03)
[2022-06-03] MEDS: VITAMINS A AND D TOPICAL OINTMENT 60 GM TUBE TP SCH (10:04)
[2022-06-03] MEDS: LISINOPRIL 20 MG TABLET PO SCH (10:04)
== END 2022-06-03 09:36 | disposition home or self-care (01) | DRG 772 ==
LOC: YASAS 13:21 → Y3W 13:22
PROVIDERS: ADMIT Allergy & Immunology; ATTEND Psychiatry & Neurology Pain Medicine
PROC: HZ42ZZZ Group Counseling for Substance Abuse Treatment, Cognitive-Behavioral (ICD-10-PCS; principal; 2022-05-20)
DX: F10.20 Alcohol dependence, uncomplicated (principal); F17.210 Nicotine dependence, cigarettes, uncomplicated; G62.9 Polyneuropathy, unspecified; I10 Essential (primary) hypertension; K21.9 Gastro-esophageal reflux disease without esophagitis; K64.9 Unspecified hemorrhoids; M54.50 Low back pain, unspecified; G89.29 Other chronic pain; R19.7 Diarrhea, unspecified; R76.11 Nonspecific reaction to tuberculin skin test without active tuberculosis; Z86.19 Personal history of other infectious and parasitic diseases; Z88.0 Allergy status to penicillin; Z88.7 Allergy status to serum and vaccine

== ENCOUNTER 2022-06-28 17:47 | Inpatient (IN) | payer OTHER ==
[2022-06-28 19:19] VITALS: BMI 27.7
[2022-06-29] MEDS ORDERED: MAGNESIUM HYDROX 2400MG/30ML ORAL SUSPENSION 30 ML CUP PO PRN (02:11)
[2022-06-29] MEDS ORDERED: NICOTINE POLACRILEX 2 MG GUM BUC PRN (02:11)
[2022-06-29] MEDS ORDERED: DICYCLOMINE HCL 10 MG CAPSULE PO PRN (02:11)
[2022-06-29] MEDS ORDERED: LOPERAMIDE HCL 2 MG CAPSULE PO PRN (02:11)
[2022-06-29] MEDS ORDERED: NALOXONE HCL (KLOXXADO) 8 MG SPRAY NS PRN (02:11)
[2022-06-29] MEDS ORDERED: ONDANSETRON *ODT* 4 MG TABLET SL PRN (02:11)
[2022-06-29] MEDS ORDERED: ACETAMINOPHEN 325 MG TABLET (FP) PO PRN ×2 (02:11)
[2022-06-29] MEDS ORDERED: IBUPROFEN 400 MG TABLET (FP) PO PRN (02:11)
[2022-06-29] MEDS ORDERED: hydrOXYzine PAMOATE 25 MG CAPSULE (FP) PO PRN (02:11)
[2022-06-29] MEDS ORDERED: POLYETHYLENE GLYCOL (HEALTHYLAX) 3350 17 GM PACKET PO PRN (02:11)
[2022-06-29] MEDS ORDERED: BISMUTH SUBSALICYLATE 524 MG/30 ML PO PRN (02:11)
[2022-06-29] MEDS: ARTIFICIAL TEARS (POLYVINYL ALCOHOL) OPTH DROPS OD SCH ×5 (05:28→22:16)
[2022-06-29] MEDS ORDERED: GABAPENTIN 100 MG CAPSULE ONE (05:31)
[2022-06-29] MEDS: GABAPENTIN 300 MG CAPSULE PO SCH ×3 (05:32→22:15)
[2022-06-29] MEDS ORDERED: LISINOPRIL 10 MG TABLET ONE (10:05)
[2022-06-29] MEDS ORDERED: chlordiazePOXIDE HCL 25 MG CAPSULE ONE (10:05)
[2022-06-29] MEDS ORDERED: PRENATAL VITAMINS W/ FOLIC ACID TABLET (FP) PO ONE (10:06)
[2022-06-29] MEDS: LISINOPRIL 20 MG TABLET PO SCH ×2 (10:11→22:15)
[2022-06-29] MEDS: PRENATAL VITAMINS W/ FOLIC ACID TABLET (FP) PO SCH (10:11)
[2022-06-29] MEDS: NICOTINE 14 MG/24 HOURS TOPICAL PATCH TD SCH (10:11)
[2022-06-29] MEDS: chlordiazePOXIDE HCL 25 MG CAPSULE PO SCH ×3 (10:14→22:15)
[2022-06-29] MEDS: IBUPROFEN 600 MG TABLET (FP) PO PRN (17:10)
[2022-06-29] MEDS: THIAMINE HCL 100 MG TABLET (FP) PO SCH (22:14)
[2022-06-29] MEDS: MELATONIN 5 MG TABLETS PO SCH (22:16)
[2022-06-30] MEDS: chlordiazePOXIDE HCL 25 MG CAPSULE PO SCH ×4 (05:38→22:26)
[2022-06-30] MEDS: GABAPENTIN 300 MG CAPSULE PO SCH ×3 (05:39→22:26)
[2022-06-30] MEDS: ARTIFICIAL TEARS (POLYVINYL ALCOHOL) OPTH DROPS OD SCH ×4 (05:45→22:26)
[2022-06-30] MEDS: PRENATAL VITAMINS W/ FOLIC ACID TABLET (FP) PO SCH (10:13)
[2022-06-30] MEDS: LISINOPRIL 20 MG TABLET PO SCH ×2 (10:13→22:26)
[2022-06-30] MEDS: IBUPROFEN 600 MG TABLET (FP) PO PRN (10:15)
[2022-06-30] MEDS: NICOTINE 14 MG/24 HOURS TOPICAL PATCH TD SCH (10:22)
[2022-06-30] MEDS ORDERED: HYDROCORTISONE 1% TOPICAL CREAM 30 GM TUBE TP PRN (11:10)
[2022-06-30] MEDS: BENZOCAINE/MENTHOL (CHLORASEPTIC ) LOZENGE MM PRN (14:17)
[2022-06-30 14:23] LABS: HEMATOCRIT 37.1 % (35.4-49); HEMOGLOBIN 12.6 GM/dL (11.7-16.9); MCH 32.4 pg (25.7-33.7); MEAN CELL VOLUME 95.1 fl (80-96); MEAN PLT VOLUME 8.5 fl (7.5-11.1); PLATELET COUNT 232 10^3/uL (134-434); RDW 14.1 % (11.9-15.9); WHITE BLOOD COUNT 6.4 K/mm3 (4.0-10.0)
[2022-06-30 14:59] LABS: CALCIUM 9.2 mg/dL (8.5-10.1)
[2022-06-30 15:01] LABS: ALBUMIN 3.8 g/dl (3.4-5.0)
[2022-06-30 15:04] LABS: BILIRUBIN,TOTAL 0.3 mg/dL (0.2-1)
[2022-06-30] MEDS: BENZOCAINE 28 GM HEMORRHOIDAL OINTMENT RC PRN (17:30)
[2022-06-30] MEDS: THIAMINE HCL 100 MG TABLET (FP) PO SCH (22:26)
[2022-06-30] MEDS: MELATONIN 5 MG TABLETS PO SCH ×2 (22:26→23:17)
[2022-07-01] MEDS: ARTIFICIAL TEARS (POLYVINYL ALCOHOL) OPTH DROPS OD SCH ×4 (05:30→22:21)
[2022-07-01] MEDS: GABAPENTIN 300 MG CAPSULE PO SCH ×3 (05:31→22:21)
[2022-07-01] MEDS: chlordiazePOXIDE HCL 25 MG CAPSULE PO SCH ×4 (05:31→22:23)
[2022-07-01] MEDS: IBUPROFEN 600 MG TABLET (FP) PO PRN (05:32)
[2022-07-01] MEDS: guaiFENesin 200 MG/10 ML 10 ML UNIT-DOSE CUPS PO PRN ×2 (05:34→22:25)
[2022-07-01] MEDS: BENZOCAINE/MENTHOL (CHLORASEPTIC ) LOZENGE MM PRN (05:39)
[2022-07-01] MEDS: PRENATAL VITAMINS W/ FOLIC ACID TABLET (FP) PO SCH (10:14)
[2022-07-01] MEDS: NICOTINE 14 MG/24 HOURS TOPICAL PATCH TD SCH (10:14)
[2022-07-01] MEDS: BENZOCAINE 28 GM HEMORRHOIDAL OINTMENT RC PRN ×2 (10:16→22:40)
[2022-07-01] MEDS: SODIUM CHLORIDE NASAL SPRAY 44 ML BOTTLE NS PRN ×2 (10:17→22:38)
[2022-07-01] MEDS: LISINOPRIL 20 MG TABLET PO SCH ×2 (10:18→22:21)
[2022-07-01] MEDS: MELATONIN 5 MG TABLETS PO SCH (22:21)
[2022-07-01] MEDS: THIAMINE HCL 100 MG TABLET (FP) PO SCH (22:21)
[2022-07-02] MEDS: ARTIFICIAL TEARS (POLYVINYL ALCOHOL) OPTH DROPS OD SCH ×4 (04:27→22:07)
[2022-07-02] MEDS: chlordiazePOXIDE HCL 10 MG CAPSULE PO SCH ×4 (05:25→22:04)
[2022-07-02] MEDS: GABAPENTIN 300 MG CAPSULE PO SCH ×3 (05:25→22:04)
[2022-07-02] MEDS: BENZOCAINE/MENTHOL (CHLORASEPTIC ) LOZENGE MM PRN ×2 (05:28→17:20)
[2022-07-02] MEDS: PRENATAL VITAMINS W/ FOLIC ACID TABLET (FP) PO SCH (10:28)
[2022-07-02] MEDS: NICOTINE 14 MG/24 HOURS TOPICAL PATCH TD SCH (10:30)
[2022-07-02] MEDS: LISINOPRIL 20 MG TABLET PO SCH ×2 (10:30→22:04)
[2022-07-02] MEDS: SODIUM CHLORIDE NASAL SPRAY 44 ML BOTTLE NS PRN (10:30)
[2022-07-02] MEDS: IBUPROFEN 600 MG TABLET (FP) PO PRN ×2 (10:31→15:31)
[2022-07-02] MEDS: MAG HYDROX/AL HYDROX/SIMETH 30 ML UNIT-DOSE CUP PO PRN (15:27)
[2022-07-02] MEDS: THIAMINE HCL 100 MG TABLET (FP) PO SCH (22:04)
[2022-07-02] MEDS: MELATONIN 5 MG TABLETS PO SCH (22:04)
[2022-07-03] MEDS: ARTIFICIAL TEARS (POLYVINYL ALCOHOL) OPTH DROPS OD SCH ×4 (05:06→23:03)
[2022-07-03] MEDS: GABAPENTIN 300 MG CAPSULE PO SCH ×3 (05:28→23:02)
[2022-07-03] MEDS: chlordiazePOXIDE HCL 10 MG CAPSULE PO SCH ×2 (05:28→17:49)
[2022-07-03] MEDS: IBUPROFEN 600 MG TABLET (FP) PO PRN ×2 (05:30→15:56)
[2022-07-03 07:07] VITALS: RESP 18
[2022-07-03] MEDS: NICOTINE 14 MG/24 HOURS TOPICAL PATCH TD SCH (10:05)
[2022-07-03] MEDS: SODIUM CHLORIDE NASAL SPRAY 44 ML BOTTLE NS PRN (10:05)
[2022-07-03] MEDS: LISINOPRIL 20 MG TABLET PO SCH ×2 (10:06→23:02)
[2022-07-03] MEDS: PRENATAL VITAMINS W/ FOLIC ACID TABLET (FP) PO SCH (10:06)
[2022-07-03] MEDS: MAG HYDROX/AL HYDROX/SIMETH 30 ML UNIT-DOSE CUP PO PRN (13:48)
[2022-07-03] MEDS: BENZOCAINE/MENTHOL (CHLORASEPTIC ) LOZENGE MM PRN (17:51)
[2022-07-03] MEDS: guaiFENesin 200 MG/10 ML 10 ML UNIT-DOSE CUPS PO PRN (17:51)
[2022-07-03] MEDS: MELATONIN 5 MG TABLETS PO SCH (23:02)
[2022-07-03] MEDS: THIAMINE HCL 100 MG TABLET (FP) PO SCH (23:03)
[2022-07-04] MEDS ORDERED: chlordiazePOXIDE HCL 10 MG CAPSULE PO ONE (05:00)
[2022-07-04] MEDS: ARTIFICIAL TEARS (POLYVINYL ALCOHOL) OPTH DROPS OD SCH (05:05)
[2022-07-04] MEDS: GABAPENTIN 300 MG CAPSULE PO SCH (06:10)
[2022-07-04] MEDS: IBUPROFEN 600 MG TABLET (FP) PO PRN (06:13)
[2022-07-04] MEDS: guaiFENesin 200 MG/10 ML 10 ML UNIT-DOSE CUPS PO PRN (06:13)
[2022-07-04 06:47] VITALS: BP 145/86; PULSE 80; TEMP 96.1
== END 2022-07-04 08:45 | disposition home or self-care (01) | DRG 775 ==
LOC: YASAS 17:47 → Y6N 06-29 09:51
PROVIDERS: ADMIT Allergy & Immunology; ATTEND Surgery
PROC: HZ2ZZZZ Detoxification Services for Substance Abuse Treatment (ICD-10-PCS; principal; 2022-06-29)
DX: F10.230 Alcohol dependence with withdrawal, uncomplicated (principal); F17.210 Nicotine dependence, cigarettes, uncomplicated; I10 Essential (primary) hypertension; K21.9 Gastro-esophageal reflux disease without esophagitis; K64.9 Unspecified hemorrhoids; R76.11 Nonspecific reaction to tuberculin skin test without active tuberculosis; Z86.19 Personal history of other infectious and parasitic diseases; Z88.7 Allergy status to serum and vaccine; Z88.0 Allergy status to penicillin; Z28.310 Unvaccinated for COVID-19; Z28.9 Immunization not carried out for unspecified reason
CPT/HCPCS: 36415; 80053; 85027; 86593; 86780; 87811; C9803-CS; U0003; U0005

== ENCOUNTER 2022-09-28 11:50 | Inpatient (IN) | payer OTHER ==
[2022-09-28 12:11] VITALS: BMI 29.0
[2022-09-28] MEDS ORDERED: POLYETHYLENE GLYCOL (HEALTHYLAX) 3350 17 GM PACKET PO PRN (13:16)
[2022-09-28] MEDS ORDERED: DICYCLOMINE HCL 10 MG CAPSULE PO PRN (13:16)
[2022-09-28] MEDS ORDERED: MAGNESIUM HYDROX 2400MG/30ML ORAL SUSPENSION 30 ML CUP PO PRN (13:16)
[2022-09-28] MEDS ORDERED: BISMUTH SUBSALICYLATE 524 MG/30 ML PO PRN (13:16)
[2022-09-28] MEDS ORDERED: NALOXONE HCL (KLOXXADO) 8 MG SPRAY NS PRN (13:16)
[2022-09-28] MEDS ORDERED: guaiFENesin 600 MG TABLET.ER (FP) PO PRN (13:16)
[2022-09-28] MEDS ORDERED: NALOXONE HCL 0.4 MG/ML VIAL IM PRN (13:16)
[2022-09-28] MEDS ORDERED: LOPERAMIDE HCL 2 MG CAPSULE PO PRN (13:16)
[2022-09-28] MEDS ORDERED: LORazepam 1 MG TABLET PO PRN (13:16)
[2022-09-28] MEDS ORDERED: METHOCARBAMOL 500 MG TABLET PO PRN (13:16)
[2022-09-28] MEDS ORDERED: BENZONATATE 200 MG CAPSULE PO PRN (13:16)
[2022-09-28] MEDS ORDERED: IBUPROFEN 400 MG TABLET (FP) PO PRN (13:16)
[2022-09-28] MEDS ORDERED: LORazepam 2 MG TABLET PO ONE (13:16)
[2022-09-28] MEDS ORDERED: hydrOXYzine PAMOATE 25 MG CAPSULE (FP) PO PRN (13:16)
[2022-09-28] MEDS ORDERED: ONDANSETRON *ODT* 4 MG TABLET SL PRN (13:16)
[2022-09-28] MEDS ORDERED: ACETAMINOPHEN 325 MG TABLET (FP) PO PRN (13:16)
[2022-09-28] MEDS: PRENATAL VITAMINS W/ FOLIC ACID TABLET (FP) PO SCH (13:44)
[2022-09-28] MEDS: ARTIFICIAL TEARS (POLYVINYL ALCOHOL) OPTH DROPS OD SCH ×2 (13:45→19:27)
[2022-09-28] MEDS: GABAPENTIN 300 MG CAPSULE PO SCH ×2 (14:31→22:03)
[2022-09-28] MEDS ORDERED: cloNIDine HCL 0.1 MG TABLET PO ONE (17:48)
[2022-09-28] MEDS: LORazepam 2 MG TABLET PO SCH ×2 (18:06→22:05)
[2022-09-28] MEDS: OXYMETAZOLINE 0.05% NASAL SOLUTION 15 ML BOTTLE NS SCH (22:02)
[2022-09-28] MEDS: THIAMINE HCL 100 MG TABLET (FP) PO SCH (22:03)
[2022-09-28] MEDS: LISINOPRIL 20 MG TABLET PO SCH (22:03)
[2022-09-28] MEDS: FAMOTIDINE 20 MG TABLET PO SCH (22:03)
[2022-09-28] MEDS: MELATONIN 5 MG TABLETS PO SCH (22:03)
[2022-09-29] MEDS: LORazepam 2 MG TABLET PO SCH ×4 (05:10→22:16)
[2022-09-29] MEDS: FAMOTIDINE 20 MG TABLET PO SCH ×2 (05:11→22:17)
[2022-09-29] MEDS: ARTIFICIAL TEARS (POLYVINYL ALCOHOL) OPTH DROPS OD SCH ×4 (05:12→23:36)
[2022-09-29] MEDS: GABAPENTIN 300 MG CAPSULE PO SCH ×3 (05:12→22:17)
[2022-09-29] MEDS: MINERAL OIL/PETROLAT/WATER TOPICAL CREAM 113 GM JAR TP SCH (10:07)
[2022-09-29] MEDS: LISINOPRIL 20 MG TABLET PO SCH ×2 (10:08→22:17)
[2022-09-29] MEDS: PRENATAL VITAMINS W/ FOLIC ACID TABLET (FP) PO SCH (10:08)
[2022-09-29] MEDS: OXYMETAZOLINE 0.05% NASAL SOLUTION 15 ML BOTTLE NS SCH ×2 (10:08→22:16)
[2022-09-29] MEDS: FLUTICASONE PROP 0.05% 16 GM NASAL SPRAY NS SCH (10:08)
[2022-09-29] MEDS: HYDROCORTISONE 2.5% TOPICAL CREAM 30 GM TUBE TP SCH ×2 (11:30→22:16)
[2022-09-29 11:53] LABS: HEMATOCRIT 40.9 % (35.4-49); HEMOGLOBIN 13.9 GM/dL (11.7-16.9); MCH 31.3 pg (25.7-33.7); MEAN CELL VOLUME 92.2 fl (80-96); MEAN PLT VOLUME 8.3 fl (7.5-11.1); PLATELET COUNT 207 10^3/uL (134-434); RBC 4.43 M/mm3 (4.00-5.60); RDW 14.3 % (11.9-15.9); WHITE BLOOD COUNT 7.7 K/mm3 (4.0-10.0)
[2022-09-29 11:57] LABS: POTASSIUM 3.9 mmol/L (3.5-5.1)
[2022-09-29 11:59] LABS: CALCIUM 9.5 mg/dL (8.5-10.1)
[2022-09-29 12:00] LABS: BLOOD UREA NITROGEN 27.2 mg/dL (7-18)
[2022-09-29 12:03] LABS: CREATININE 1.3 mg/dL (0.55-1.3)
[2022-09-29 12:04] LABS: BILIRUBIN,TOTAL 0.9 mg/dL (0.2-1)
[2022-09-29 12:05] LABS: TOT PROT 7.8 g/dl (6.4-8.2)
[2022-09-29] MEDS: MELATONIN 5 MG TABLETS PO SCH (22:16)
[2022-09-29] MEDS: THIAMINE HCL 100 MG TABLET (FP) PO SCH (22:17)
[2022-09-30] MEDS: LORazepam 1 MG TABLET PO SCH ×4 (05:30→22:38)
[2022-09-30] MEDS: GABAPENTIN 300 MG CAPSULE PO SCH ×3 (05:31→22:38)
[2022-09-30] MEDS: FAMOTIDINE 20 MG TABLET PO SCH ×2 (05:31→22:38)
[2022-09-30] MEDS: ARTIFICIAL TEARS (POLYVINYL ALCOHOL) OPTH DROPS OD SCH ×4 (05:32→23:18)
[2022-09-30] MEDS: FLUTICASONE PROP 0.05% 16 GM NASAL SPRAY NS SCH (10:17)
[2022-09-30] MEDS: HYDROCORTISONE 2.5% TOPICAL CREAM 30 GM TUBE TP SCH ×2 (10:17→22:39)
[2022-09-30] MEDS: OXYMETAZOLINE 0.05% NASAL SOLUTION 15 ML BOTTLE NS SCH ×2 (10:17→22:39)
[2022-09-30] MEDS: PRENATAL VITAMINS W/ FOLIC ACID TABLET (FP) PO SCH (10:18)
[2022-09-30] MEDS: LISINOPRIL 20 MG TABLET PO SCH ×2 (10:18→22:38)
[2022-09-30] MEDS: MAG HYDROX/AL HYDROX/SIMETH 30 ML UNIT-DOSE CUP PO PRN ×2 (10:20→16:42)
[2022-09-30] MEDS: MINERAL OIL/PETROLAT/WATER TOPICAL CREAM 113 GM JAR TP SCH (10:28)
[2022-09-30] MEDS: BENZOCAINE/MENTHOL (CHLORASEPTIC ) LOZENGE MM PRN (10:47)
[2022-09-30 11:55] LABS: BLOOD UREA NITROGEN 18.6 mg/dL (7-18)
[2022-09-30] MEDS: LACTULOSE 20 GM/30 ML UDC (FOR ORAL USE ONLY) PO SCH ×2 (14:32→22:39)
[2022-09-30] MEDS: THIAMINE HCL 100 MG TABLET (FP) PO SCH (22:38)
[2022-09-30] MEDS: MELATONIN 5 MG TABLETS PO SCH (22:39)
[2022-10-01] MEDS ORDERED: LORazepam 0.5 MG TABLET PO PRN
[2022-10-01] MEDS: LACTULOSE 20 GM/30 ML UDC (FOR ORAL USE ONLY) PO SCH ×3 (05:10→22:44)
[2022-10-01] MEDS: GABAPENTIN 300 MG CAPSULE PO SCH ×3 (05:10→22:44)
[2022-10-01] MEDS: LORazepam 0.5 MG TABLET PO SCH ×4 (05:11→23:11)
[2022-10-01] MEDS: FAMOTIDINE 20 MG TABLET PO SCH ×2 (05:11→22:44)
[2022-10-01] MEDS: IBUPROFEN 600 MG TABLET (FP) PO PRN ×2 (06:32→13:23)
[2022-10-01] MEDS: ARTIFICIAL TEARS (POLYVINYL ALCOHOL) OPTH DROPS OD SCH ×3 (06:34→18:27)
[2022-10-01] MEDS: LISINOPRIL 20 MG TABLET PO SCH ×2 (10:16→22:45)
[2022-10-01] MEDS: PRENATAL VITAMINS W/ FOLIC ACID TABLET (FP) PO SCH (10:17)
[2022-10-01] MEDS: MAG HYDROX/AL HYDROX/SIMETH 30 ML UNIT-DOSE CUP PO PRN ×2 (10:17→16:26)
[2022-10-01] MEDS: OXYMETAZOLINE 0.05% NASAL SOLUTION 15 ML BOTTLE NS SCH ×2 (10:17→22:44)
[2022-10-01] MEDS: FLUTICASONE PROP 0.05% 16 GM NASAL SPRAY NS SCH (10:17)
[2022-10-01] MEDS: HYDROCORTISONE 2.5% TOPICAL CREAM 30 GM TUBE TP SCH ×2 (10:20→22:44)
[2022-10-01] MEDS: MINERAL OIL/PETROLAT/WATER TOPICAL CREAM 113 GM JAR TP SCH (10:20)
[2022-10-01] MEDS ORDERED: METHOCARBAMOL 500 MG TABLET PO PRN (17:51)
[2022-10-01] MEDS: MELATONIN 5 MG TABLETS PO SCH (22:44)
[2022-10-01] MEDS: THIAMINE HCL 100 MG TABLET (FP) PO SCH (22:46)
[2022-10-02] MEDS: ARTIFICIAL TEARS (POLYVINYL ALCOHOL) OPTH DROPS OD SCH ×4 (01:02→17:33)
[2022-10-02] MEDS ORDERED: LORazepam 0.5 MG TABLET PO ONE (05:00)
[2022-10-02] MEDS: FAMOTIDINE 20 MG TABLET PO SCH ×2 (05:36→22:58)
[2022-10-02] MEDS: GABAPENTIN 300 MG CAPSULE PO SCH ×3 (05:36→22:58)
[2022-10-02] MEDS: IBUPROFEN 600 MG TABLET (FP) PO PRN (05:37)
[2022-10-02] MEDS: LACTULOSE 20 GM/30 ML UDC (FOR ORAL USE ONLY) PO SCH (05:39)
[2022-10-02] MEDS: BENZOCAINE/MENTHOL (CHLORASEPTIC ) LOZENGE MM PRN ×2 (05:58→17:28)
[2022-10-02] MEDS: PRENATAL VITAMINS W/ FOLIC ACID TABLET (FP) PO SCH (10:44)
[2022-10-02] MEDS: MINERAL OIL/PETROLAT/WATER TOPICAL CREAM 113 GM JAR TP SCH (10:44)
[2022-10-02] MEDS: LISINOPRIL 20 MG TABLET PO SCH ×2 (10:44→22:58)
[2022-10-02] MEDS: FLUTICASONE PROP 0.05% 16 GM NASAL SPRAY NS SCH (10:44)
[2022-10-02] MEDS: HYDROCORTISONE 2.5% TOPICAL CREAM 30 GM TUBE TP SCH ×2 (10:44→22:58)
[2022-10-02] MEDS: OXYMETAZOLINE 0.05% NASAL SOLUTION 15 ML BOTTLE NS SCH ×2 (10:44→22:58)
[2022-10-02] MEDS: MAG HYDROX/AL HYDROX/SIMETH 30 ML UNIT-DOSE CUP PO PRN (10:45)
[2022-10-02] MEDS: MELATONIN 5 MG TABLETS PO SCH (22:58)
[2022-10-02] MEDS: THIAMINE HCL 100 MG TABLET (FP) PO SCH (22:59)
[2022-10-03] MEDS: ARTIFICIAL TEARS (POLYVINYL ALCOHOL) OPTH DROPS OD SCH ×2 (01:13→05:37)
[2022-10-03] MEDS: GABAPENTIN 300 MG CAPSULE PO SCH (05:37)
[2022-10-03] MEDS: FAMOTIDINE 20 MG TABLET PO SCH (05:37)
[2022-10-03] MEDS: BENZOCAINE/MENTHOL (CHLORASEPTIC ) LOZENGE MM PRN (06:14)
[2022-10-03 06:45] VITALS: RESP 16
[2022-10-03 09:51] VITALS: BP 154/80; PULSE 100; TEMP 97.7
[2022-10-03] MEDS: PRENATAL VITAMINS W/ FOLIC ACID TABLET (FP) PO SCH (10:03)
[2022-10-03] MEDS: LISINOPRIL 20 MG TABLET PO SCH (10:03)
[2022-10-03] MEDS: OXYMETAZOLINE 0.05% NASAL SOLUTION 15 ML BOTTLE NS SCH (10:03)
[2022-10-03] MEDS: HYDROCORTISONE 2.5% TOPICAL CREAM 30 GM TUBE TP SCH (10:04)
[2022-10-03] MEDS: MINERAL OIL/PETROLAT/WATER TOPICAL CREAM 113 GM JAR TP SCH (10:04)
[2022-10-03] MEDS: FLUTICASONE PROP 0.05% 16 GM NASAL SPRAY NS SCH (10:04)
== END 2022-10-03 10:05 | disposition home or self-care (01) | DRG 774 ==
LOC: YASAS 11:50 → Y3N 13:55
PROVIDERS: ADMIT Allergy & Immunology; ATTEND Surgery
PROC: HZ2ZZZZ Detoxification Services for Substance Abuse Treatment (ICD-10-PCS; principal; 2022-09-28)
DX: F10.230 Alcohol dependence with withdrawal, uncomplicated (principal); F14.10 Cocaine abuse, uncomplicated; F12.20 Cannabis dependence, uncomplicated; F17.210 Nicotine dependence, cigarettes, uncomplicated; G62.9 Polyneuropathy, unspecified; I10 Essential (primary) hypertension; K21.9 Gastro-esophageal reflux disease without esophagitis; M54.50 Low back pain, unspecified; G89.29 Other chronic pain; R79.89 Other specified abnormal findings of blood chemistry; Z86.19 Personal history of other infectious and parasitic diseases; Z88.0 Allergy status to penicillin; Z88.7 Allergy status to serum and vaccine; Z28.310 Unvaccinated for COVID-19; Z28.9 Immunization not carried out for unspecified reason
CPT/HCPCS: 36415; 80053; 82140; 82565; 84450; 84460; 84520; 85027; 86593; 86780; 87635; 87811

== ENCOUNTER 2022-10-27 21:52 | Inpatient (IN) | payer OTHER ==
[2022-10-27 22:37] VITALS: BMI 27.4
[2022-10-27] MEDS ORDERED: P-EPHED 60MG/TRIPROLIDI 2.5MG TABLET PO PRN (23:01)
[2022-10-27] MEDS ORDERED: ACETAMINOPHEN 325 MG TABLET (FP) PO PRN (23:01)
[2022-10-27] MEDS ORDERED: NICOTINE 10 MG CARTRIDGE (INHALER) IH PRN (23:01)
[2022-10-27] MEDS ORDERED: COLLOIDAL OATMEAL 1 BAR EACH TP PRN (23:01)
[2022-10-27] MEDS ORDERED: ONDANSETRON *ODT* 4 MG TABLET SL PRN (23:01)
[2022-10-27] MEDS ORDERED: BENZOCAINE/MENTHOL (CHLORASEPTIC ) LOZENGE MM PRN (23:01)
[2022-10-27] MEDS ORDERED: LOPERAMIDE HCL 2 MG CAPSULE PO PRN (23:01)
[2022-10-27] MEDS ORDERED: NICOTINE POLACRILEX 2 MG GUM BUC PRN (23:01)
[2022-10-27] MEDS ORDERED: guaiFENesin 600 MG TABLET.ER (FP) PO PRN (23:01)
[2022-10-27] MEDS ORDERED: POLYETHYLENE GLYCOL (HEALTHYLAX) 3350 17 GM PACKET PO PRN (23:01)
[2022-10-27] MEDS ORDERED: BISMUTH SUBSALICYLATE 524 MG/30 ML PO PRN (23:01)
[2022-10-27] MEDS ORDERED: BENZONATATE 200 MG CAPSULE PO PRN (23:01)
[2022-10-27] MEDS ORDERED: IBUPROFEN 400 MG TABLET (FP) PO PRN (23:01)
[2022-10-27] MEDS ORDERED: MAGNESIUM HYDROX 2400MG/30ML ORAL SUSPENSION 30 ML CUP PO PRN (23:01)
[2022-10-27] MEDS ORDERED: MELATONIN 5 MG TABLETS PO PRN (23:01)
[2022-10-27] MEDS ORDERED: LISINOPRIL 5 MG TABLET PO ONE (23:04)
[2022-10-27] MEDS ORDERED: LORazepam 1 MG TABLET PO PRN (23:05)
[2022-10-27] MEDS: LORazepam 2 MG TABLET PO SCH (23:43)
[2022-10-28] MEDS: ARTIFICIAL TEARS (POLYVINYL ALCOHOL) OPTH DROPS OD SCH ×5 (00:03→22:54)
[2022-10-28] MEDS: LIDOCAINE PATCH REMOVAL MC SCH ×2 (00:04→22:54)
[2022-10-28] MEDS: LORazepam 2 MG TABLET PO SCH ×4 (06:00→22:47)
[2022-10-28] MEDS: FAMOTIDINE 20 MG TABLET PO SCH ×2 (06:00→22:55)
[2022-10-28] MEDS: MAG HYDROX/AL HYDROX/SIMETH 30 ML UNIT-DOSE CUP PO PRN ×2 (10:24→17:55)
[2022-10-28] MEDS: IBUPROFEN 600 MG TABLET (FP) PO PRN (10:25)
[2022-10-28] MEDS: PRENATAL VITAMINS W/ FOLIC ACID TABLET (FP) PO SCH (10:30)
[2022-10-28] MEDS: FLUTICASONE PROP 0.05% 16 GM NASAL SPRAY NS SCH (10:30)
[2022-10-28] MEDS: LIDOCAINE 5% TOPICAL PATCH TP SCH (10:30)
[2022-10-28] MEDS ORDERED: HYDROCORTISONE 2.5% TOPICAL CREAM 30 GM TUBE PR SCH (22:00)
[2022-10-28] MEDS: HYDROCORTISONE 2.5% TOPICAL CREAM 30 GM TUBE TP PRN (22:53)
[2022-10-28] MEDS: THIAMINE HCL 100 MG TABLET (FP) PO SCH (22:55)
[2022-10-29] MEDS: ARTIFICIAL TEARS (POLYVINYL ALCOHOL) OPTH DROPS OD SCH ×3 (05:44→18:13)
[2022-10-29] MEDS: LORazepam 1 MG TABLET PO SCH ×3 (05:45→18:13)
[2022-10-29] MEDS: MAG HYDROX/AL HYDROX/SIMETH 30 ML UNIT-DOSE CUP PO PRN ×2 (05:45→21:47)
[2022-10-29] MEDS: FAMOTIDINE 20 MG TABLET PO SCH ×2 (05:45→23:38)
[2022-10-29] MEDS: FLUTICASONE PROP 0.05% 16 GM NASAL SPRAY NS SCH (10:15)
[2022-10-29] MEDS: HYDROCORTISONE 0.5% TOPICAL CREAM 30 GM TUBE TP SCH (10:15)
[2022-10-29] MEDS: PRENATAL VITAMINS W/ FOLIC ACID TABLET (FP) PO SCH (10:17)
[2022-10-29] MEDS: LIDOCAINE 5% TOPICAL PATCH TP SCH (10:17)
[2022-10-29] MEDS: IBUPROFEN 600 MG TABLET (FP) PO PRN ×2 (10:17→15:41)
[2022-10-29] MEDS: THIAMINE HCL 100 MG TABLET (FP) PO SCH (23:38)
[2022-10-29] MEDS: LIDOCAINE PATCH REMOVAL MC SCH (23:38)
[2022-10-30] MEDS ORDERED: LORazepam 0.5 MG TABLET PO PRN
[2022-10-30] MEDS: LORazepam 1 MG TABLET PO SCH (00:06)
[2022-10-30] MEDS: ARTIFICIAL TEARS (POLYVINYL ALCOHOL) OPTH DROPS OD SCH ×5 (00:06→23:36)
[2022-10-30] MEDS: LORazepam 0.5 MG TABLET PO SCH ×4 (05:40→22:33)
[2022-10-30] MEDS: FAMOTIDINE 20 MG TABLET PO SCH ×2 (05:40→22:32)
[2022-10-30] MEDS: IBUPROFEN 600 MG TABLET (FP) PO PRN (05:41)
[2022-10-30] MEDS: LIDOCAINE 5% TOPICAL PATCH TP SCH (10:39)
[2022-10-30] MEDS: FLUTICASONE PROP 0.05% 16 GM NASAL SPRAY NS SCH (10:40)
[2022-10-30] MEDS: HYDROCORTISONE 2.5% TOPICAL CREAM 30 GM TUBE TP PRN (10:41)
[2022-10-30] MEDS: PRENATAL VITAMINS W/ FOLIC ACID TABLET (FP) PO SCH (10:42)
[2022-10-30] MEDS: MAG HYDROX/AL HYDROX/SIMETH 30 ML UNIT-DOSE CUP PO PRN (10:47)
[2022-10-30] MEDS: HYDROCORTISONE 0.5% TOPICAL CREAM 30 GM TUBE TP SCH (10:51)
[2022-10-30] MEDS: LIDOCAINE PATCH REMOVAL MC SCH (22:32)
[2022-10-30] MEDS: THIAMINE HCL 100 MG TABLET (FP) PO SCH (22:32)
[2022-10-31] MEDS ORDERED: LORazepam 0.5 MG TABLET PO ONE (05:00)
[2022-10-31] MEDS: FAMOTIDINE 20 MG TABLET PO SCH (05:40)
[2022-10-31] MEDS: IBUPROFEN 600 MG TABLET (FP) PO PRN (05:41)
[2022-10-31] MEDS: ARTIFICIAL TEARS (POLYVINYL ALCOHOL) OPTH DROPS OD SCH ×2 (05:41→10:01)
[2022-10-31 06:46] VITALS: RESP 18
[2022-10-31] MEDS: FLUTICASONE PROP 0.05% 16 GM NASAL SPRAY NS SCH (10:00)
[2022-10-31] MEDS: PRENATAL VITAMINS W/ FOLIC ACID TABLET (FP) PO SCH (10:00)
[2022-10-31] MEDS: HYDROCORTISONE 0.5% TOPICAL CREAM 30 GM TUBE TP SCH (10:01)
[2022-10-31] MEDS: LIDOCAINE 5% TOPICAL PATCH TP SCH (10:01)
[2022-10-31 10:03] VITALS: PULSE 91; TEMP 97.5
[2022-10-31 10:04] VITALS: BP 144/78
== END 2022-10-31 10:43 | disposition home or self-care (01) | DRG 775 ==
LOC: YASAS 21:52 → Y3N 23:44
PROVIDERS: ADMIT Allergy & Immunology; ATTEND Surgery
PROC: HZ2ZZZZ Detoxification Services for Substance Abuse Treatment (ICD-10-PCS; principal; 2022-10-27)
DX: F10.230 Alcohol dependence with withdrawal, uncomplicated (principal); F17.210 Nicotine dependence, cigarettes, uncomplicated; G62.9 Polyneuropathy, unspecified; I10 Essential (primary) hypertension; K21.9 Gastro-esophageal reflux disease without esophagitis; K64.9 Unspecified hemorrhoids; M54.50 Low back pain, unspecified; G89.29 Other chronic pain; Z86.19 Personal history of other infectious and parasitic diseases; Z28.310 Unvaccinated for COVID-19; Z28.9 Immunization not carried out for unspecified reason; Z88.0 Allergy status to penicillin; Z88.7 Allergy status to serum and vaccine
CPT/HCPCS: 87635

== ENCOUNTER 2022-12-16 17:55 | Inpatient (IN) | payer OTHER ==
[2022-12-16] MEDS ORDERED: LISINOPRIL 10 MG TABLET PO ONE (21:16)
[2022-12-16] MEDS ORDERED: P-EPHED 60MG/TRIPROLIDI 2.5MG TABLET PO PRN (21:21)
[2022-12-16] MEDS ORDERED: COLLOIDAL OATMEAL 1 BAR EACH TP PRN (21:21)
[2022-12-16] MEDS ORDERED: LOPERAMIDE HCL 2 MG CAPSULE PO PRN (21:21)
[2022-12-16] MEDS ORDERED: ACETAMINOPHEN 325 MG TABLET (FP) PO PRN (21:21)
[2022-12-16] MEDS ORDERED: BENZOCAINE/MENTHOL (CHLORASEPTIC ) LOZENGE MM PRN (21:21)
[2022-12-16] MEDS ORDERED: POLYETHYLENE GLYCOL (HEALTHYLAX) 3350 17 GM PACKET PO PRN (21:21)
[2022-12-16] MEDS ORDERED: ONDANSETRON *ODT* 4 MG TABLET SL PRN (21:21)
[2022-12-16] MEDS ORDERED: MAGNESIUM HYDROX 2400MG/30ML ORAL SUSPENSION 30 ML CUP PO PRN (21:21)
[2022-12-16] MEDS ORDERED: BISMUTH SUBSALICYLATE 524 MG/30 ML PO PRN (21:21)
[2022-12-16] MEDS ORDERED: BENZONATATE 200 MG CAPSULE PO PRN (21:21)
[2022-12-16] MEDS ORDERED: LISINOPRIL 10 MG TABLET ONE (21:48)
[2022-12-16] MEDS ORDERED: MAG HYDROX/AL HYDROX/SIMETH 30 ML UNIT-DOSE CUP ONE (21:48)
[2022-12-16] MEDS: MAG HYDROX/AL HYDROX/SIMETH 30 ML UNIT-DOSE CUP PO PRN (21:49)
[2022-12-16] MEDS: GABAPENTIN 300 MG CAPSULE PO SCH (23:35)
[2022-12-16] MEDS: guaiFENesin 600 MG TABLET.ER (FP) PO SCH (23:35)
[2022-12-16] MEDS: THIAMINE HCL 100 MG TABLET (FP) PO SCH (23:35)
[2022-12-16] MEDS: FAMOTIDINE 20 MG TABLET PO SCH (23:36)
[2022-12-16] MEDS: diazePAM 5 MG TABLET PO SCH (23:37)
[2022-12-16] MEDS: MELATONIN 5 MG TABLETS PO SCH (23:38)
[2022-12-16] MEDS: FLUTICASONE PROP 0.05% 16 GM NASAL SPRAY NS SCH (23:38)
[2022-12-16] MEDS: HYDROCORTISONE 2.5% TOPICAL CREAM 30 GM TUBE TP SCH (23:38)
[2022-12-17] MEDS: ARTIFICIAL TEARS (POLYVINYL ALCOHOL) OPTH DROPS OD SCH ×4 (00:55→18:12)
[2022-12-17] MEDS: diazePAM 5 MG TABLET PO SCH ×5 (05:55→22:26)
[2022-12-17] MEDS: FAMOTIDINE 20 MG TABLET PO SCH ×2 (06:46→22:25)
[2022-12-17] MEDS: GABAPENTIN 300 MG CAPSULE PO SCH ×3 (06:46→22:25)
[2022-12-17] MEDS: diazePAM 5 MG TABLET PO PRN ×2 (06:50→13:42)
[2022-12-17] MEDS: PRENATAL VITAMINS W/ FOLIC ACID TABLET (FP) PO SCH (10:24)
[2022-12-17] MEDS: guaiFENesin 600 MG TABLET.ER (FP) PO SCH ×2 (10:24→22:25)
[2022-12-17 11:40] LABS: HEMATOCRIT 39.8 % (35.4-49); HEMOGLOBIN 13.6 GM/dL (11.7-16.9); MCH 31.2 pg (25.7-33.7); MCHC 34.3 g/dl (32.0-35.9); MEAN CELL VOLUME 91.2 fl (80-96); MEAN PLT VOLUME 8.9 fl (7.5-11.1); PLATELET COUNT 214 10^3/uL (134-434); RBC 4.37 M/mm3 (4.00-5.60); RDW 14.6 % (11.9-15.9); WHITE BLOOD COUNT 8.4 K/mm3 (4.0-10.0)
[2022-12-17 12:05] LABS: POTASSIUM 4.9 mmol/L (3.5-5.1)
[2022-12-17 12:09] LABS: BLOOD UREA NITROGEN 30.5 mg/dL (7-18); CALCIUM 8.7 mg/dL (8.5-10.1)
[2022-12-17 12:10] LABS: ALBUMIN 3.8 g/dl (3.4-5.0)
[2022-12-17 12:13] LABS: CREATININE 1.4 mg/dL (0.55-1.3)
[2022-12-17 12:14] LABS: BILIRUBIN,TOTAL 0.8 mg/dL (0.2-1); TOT PROT 7.6 g/dl (6.4-8.2)
[2022-12-17] MEDS: HYDROCORTISONE 2.5% TOPICAL CREAM 30 GM TUBE TP SCH ×2 (15:44→22:57)
[2022-12-17] MEDS: FLUTICASONE PROP 0.05% 16 GM NASAL SPRAY NS SCH (15:44)
[2022-12-17] MEDS: MELATONIN 5 MG TABLETS PO SCH (22:24)
[2022-12-17] MEDS: THIAMINE HCL 100 MG TABLET (FP) PO SCH (22:25)
[2022-12-17] MEDS: MAG HYDROX/AL HYDROX/SIMETH 30 ML UNIT-DOSE CUP PO PRN (22:27)
[2022-12-18] MEDS: ARTIFICIAL TEARS (POLYVINYL ALCOHOL) OPTH DROPS OD SCH ×5 (02:12→23:05)
[2022-12-18] MEDS: diazePAM 5 MG TABLET PO SCH ×3 (05:29→22:42)
[2022-12-18] MEDS: FAMOTIDINE 20 MG TABLET PO SCH ×2 (05:30→22:42)
[2022-12-18] MEDS: GABAPENTIN 300 MG CAPSULE PO SCH ×3 (05:30→22:42)
[2022-12-18] MEDS: HYDROCORTISONE 2.5% TOPICAL CREAM 30 GM TUBE TP SCH ×2 (10:23→22:44)
[2022-12-18] MEDS: PRENATAL VITAMINS W/ FOLIC ACID TABLET (FP) PO SCH (10:24)
[2022-12-18] MEDS: guaiFENesin 600 MG TABLET.ER (FP) PO SCH ×2 (10:24→22:42)
[2022-12-18] MEDS: FLUTICASONE PROP 0.05% 16 GM NASAL SPRAY NS SCH (12:38)
[2022-12-18] MEDS ORDERED: guaiFENesin 200 MG/10 ML 10 ML UNIT-DOSE CUPS PO PRN (12:38)
[2022-12-18] MEDS: METHOCARBAMOL 500 MG TABLET PO SCH ×2 (12:49→22:42)
[2022-12-18] MEDS: THIAMINE HCL 100 MG TABLET (FP) PO SCH (22:42)
[2022-12-18] MEDS: MELATONIN 5 MG TABLETS PO SCH (22:44)
[2022-12-19] MEDS: diazePAM 5 MG TABLET PO SCH ×2 (05:50→17:24)
[2022-12-19] MEDS: FAMOTIDINE 20 MG TABLET PO SCH ×2 (05:50→22:14)
[2022-12-19] MEDS: ARTIFICIAL TEARS (POLYVINYL ALCOHOL) OPTH DROPS OD SCH ×4 (05:50→23:31)
[2022-12-19] MEDS: GABAPENTIN 300 MG CAPSULE PO SCH ×3 (05:50→22:14)
[2022-12-19] MEDS: ACETAMINOPHEN 325 MG TABLET (FP) PO PRN ×2 (05:51→13:47)
[2022-12-19] MEDS: HYDROCORTISONE 2.5% TOPICAL CREAM 30 GM TUBE TP SCH ×2 (09:50→22:15)
[2022-12-19] MEDS: PRENATAL VITAMINS W/ FOLIC ACID TABLET (FP) PO SCH (09:51)
[2022-12-19] MEDS: FLUTICASONE PROP 0.05% 16 GM NASAL SPRAY NS SCH (09:51)
[2022-12-19] MEDS: guaiFENesin 600 MG TABLET.ER (FP) PO SCH ×2 (09:51→22:14)
[2022-12-19] MEDS: METHOCARBAMOL 500 MG TABLET PO SCH ×2 (09:52→22:14)
[2022-12-19] MEDS: predniSONE 20 MG TABLET (UD) PO SCH (12:05)
[2022-12-19] MEDS ORDERED: METOPROLOL TARTRATE 25 MG TABLET (FP) PO ONE (18:46)
[2022-12-19] MEDS: MAG HYDROX/AL HYDROX/SIMETH 30 ML UNIT-DOSE CUP PO PRN (19:06)
[2022-12-19] MEDS: NAPROXEN 375 MG TABLET PO PRN (21:02)
[2022-12-19] MEDS: THIAMINE HCL 100 MG TABLET (FP) PO SCH (22:14)
[2022-12-19] MEDS: MELATONIN 5 MG TABLETS PO SCH (22:15)
[2022-12-20] MEDS: FAMOTIDINE 20 MG TABLET PO SCH ×2 (05:40→22:22)
[2022-12-20] MEDS: GABAPENTIN 300 MG CAPSULE PO SCH ×3 (05:40→22:22)
[2022-12-20] MEDS: ARTIFICIAL TEARS (POLYVINYL ALCOHOL) OPTH DROPS OD SCH ×4 (05:41→23:40)
[2022-12-20] MEDS ORDERED: diazePAM 5 MG TABLET PO ONE (06:00)
[2022-12-20] MEDS: METHOCARBAMOL 500 MG TABLET PO SCH ×2 (09:34→22:21)
[2022-12-20] MEDS: predniSONE 20 MG TABLET (UD) PO SCH (09:34)
[2022-12-20] MEDS: guaiFENesin 600 MG TABLET.ER (FP) PO SCH ×2 (09:35→22:22)
[2022-12-20] MEDS: FLUTICASONE PROP 0.05% 16 GM NASAL SPRAY NS SCH (09:35)
[2022-12-20] MEDS: LISINOPRIL 20 MG TABLET PO SCH (09:35)
[2022-12-20] MEDS: PRENATAL VITAMINS W/ FOLIC ACID TABLET (FP) PO SCH (09:35)
[2022-12-20] MEDS: HYDROCORTISONE 2.5% TOPICAL CREAM 30 GM TUBE TP SCH ×2 (09:37→22:24)
[2022-12-20 10:42] LABS: HEMATOCRIT 38.7 % (35.4-49); HEMOGLOBIN 13.4 GM/dL (11.7-16.9); MCH 31.4 pg (25.7-33.7); MCHC 34.7 g/dl (32.0-35.9); MEAN CELL VOLUME 90.4 fl (80-96); MEAN PLT VOLUME 8.9 fl (7.5-11.1); PLATELET COUNT 193 10^3/uL (134-434); RBC 4.28 M/mm3 (4.00-5.60); RDW 14.2 % (11.9-15.9); WHITE BLOOD COUNT 9.8 K/mm3 (4.0-10.0)
[2022-12-20 10:51] LABS: POTASSIUM 4.1 mmol/L (3.5-5.1)
[2022-12-20 11:10] LABS: CALCIUM 8.9 mg/dL (8.5-10.1)
[2022-12-20 11:11] LABS: BLOOD UREA NITROGEN 20.7 mg/dL (7-18)
[2022-12-20 11:13] LABS: URIC ACID 6.9 mg/dL (2.6-7.2)
[2022-12-20 11:14] LABS: CREATININE 1.1 mg/dL (0.55-1.3)
[2022-12-20] MEDS: NAPROXEN 375 MG TABLET PO PRN (13:09)
[2022-12-20] MEDS: MELATONIN 5 MG TABLETS PO SCH (22:21)
[2022-12-20] MEDS: THIAMINE HCL 100 MG TABLET (FP) PO SCH (22:22)
[2022-12-20] MEDS: MAG HYDROX/AL HYDROX/SIMETH 30 ML UNIT-DOSE CUP PO PRN (22:23)
[2022-12-21] MEDS: FAMOTIDINE 20 MG TABLET PO SCH (05:36)
[2022-12-21] MEDS: GABAPENTIN 300 MG CAPSULE PO SCH (05:36)
[2022-12-21] MEDS: ARTIFICIAL TEARS (POLYVINYL ALCOHOL) OPTH DROPS OD SCH (05:36)
[2022-12-21] MEDS: guaiFENesin 600 MG TABLET.ER (FP) PO SCH (09:21)
[2022-12-21] MEDS: predniSONE 20 MG TABLET (UD) PO SCH (09:21)
[2022-12-21] MEDS: PRENATAL VITAMINS W/ FOLIC ACID TABLET (FP) PO SCH (09:21)
[2022-12-21] MEDS: LISINOPRIL 20 MG TABLET PO SCH (09:22)
[2022-12-21] MEDS: HYDROCORTISONE 2.5% TOPICAL CREAM 30 GM TUBE TP SCH (09:22)
[2022-12-21] MEDS: METHOCARBAMOL 500 MG TABLET PO SCH (09:22)
[2022-12-21] MEDS: FLUTICASONE PROP 0.05% 16 GM NASAL SPRAY NS SCH (09:23)
[2022-12-21 09:47] VITALS: BP 123/76; PULSE 101; RESP 20; TEMP 98
== END 2022-12-21 10:06 | disposition home or self-care (01) | DRG 775 ==
LOC: YASAS 17:55 → Y3N 22:54
PROVIDERS: ADMIT Allergy & Immunology; ATTEND Allergy & Immunology
PROC: HZ2ZZZZ Detoxification Services for Substance Abuse Treatment (ICD-10-PCS; principal; 2022-12-16)
DX: F10.230 Alcohol dependence with withdrawal, uncomplicated (principal); F10.220 Alcohol dependence with intoxication, uncomplicated; F17.210 Nicotine dependence, cigarettes, uncomplicated; I10 Essential (primary) hypertension; M10.9 Gout, unspecified; Z28.310 Unvaccinated for COVID-19; Z28.9 Immunization not carried out for unspecified reason; Z88.0 Allergy status to penicillin; Z88.7 Allergy status to serum and vaccine
CPT/HCPCS: 36415; 80048; 80053; 84550; 85027; 87635; 87811

== ENCOUNTER 2023-04-09 11:05 | Inpatient (IN) | payer OTHER ==
[2023-04-09 14:19] VITALS: BMI 29.0
[2023-04-09] MEDS ORDERED: IBUPROFEN 400 MG TABLET (FP) PO PRN (14:20)
[2023-04-09] MEDS ORDERED: NALOXONE HCL (KLOXXADO) 8 MG SPRAY NS PRN (14:20)
[2023-04-09] MEDS ORDERED: hydrOXYzine PAMOATE 25 MG CAPSULE (FP) PO PRN (14:20)
[2023-04-09] MEDS ORDERED: BENZONATATE 200 MG CAPSULE PO PRN (14:20)
[2023-04-09] MEDS ORDERED: NALOXONE HCL 0.4 MG/ML VIAL IM PRN (14:20)
[2023-04-09] MEDS ORDERED: LOPERAMIDE HCL 2 MG CAPSULE PO PRN (14:20)
[2023-04-09] MEDS ORDERED: BACLOFEN 10 MG TABLET (FP) PO PRN (14:20)
[2023-04-09] MEDS ORDERED: POLYETHYLENE GLYCOL (HEALTHYLAX) 3350 17 GM PACKET PO PRN (14:20)
[2023-04-09] MEDS ORDERED: guaiFENesin 600 MG TABLET.ER (FP) PO PRN (14:20)
[2023-04-09] MEDS ORDERED: ONDANSETRON *ODT* 4 MG TABLET SL PRN (14:20)
[2023-04-09] MEDS ORDERED: BISMUTH SUBSALICYLATE 524 MG/30 ML PO PRN (14:20)
[2023-04-09] MEDS ORDERED: NICOTINE POLACRILEX 2 MG GUM BUC PRN (14:20)
[2023-04-09] MEDS ORDERED: DICYCLOMINE HCL 10 MG CAPSULE PO PRN (14:20)
[2023-04-09] MEDS ORDERED: LORazepam 1 MG TABLET PO PRN (14:24)
[2023-04-09] MEDS: LORazepam 2 MG TABLET PO SCH ×2 (16:44→22:33)
[2023-04-09] MEDS ORDERED: LORazepam 1 MG TABLET ONE (16:50)
[2023-04-09] MEDS ORDERED: ARTIFICIAL TEARS (POLYVINYL ALCOHOL) OPTH DROPS OU PRN (18:43)
[2023-04-09] MEDS: MAG HYDROX/AL HYDROX/SIMETH 30 ML UNIT-DOSE CUP PO PRN (22:32)
[2023-04-09] MEDS: THIAMINE HCL 100 MG TABLET (FP) PO SCH (22:32)
[2023-04-09] MEDS: MELATONIN 5 MG TABLETS PO SCH (22:33)
[2023-04-10] MEDS: LORazepam 1 MG TABLET PO SCH ×4 (05:25→23:11)
[2023-04-10] MEDS: ACETAMINOPHEN 325 MG TABLET (FP) PO PRN (05:25)
[2023-04-10] MEDS: LISINOPRIL 20 MG TABLET PO SCH (10:18)
[2023-04-10] MEDS: PRENATAL VITAMINS W/ FOLIC ACID TABLET (FP) PO SCH (10:18)
[2023-04-10] MEDS: amLODIPine BESYLATE 10 MG TABLET (FP) PO SCH (10:18)
[2023-04-10] MEDS: FLUTICASONE PROP 0.05% 16 GM NASAL SPRAY NS SCH (10:54)
[2023-04-10 10:57] LABS: HEMATOCRIT 39.1 % (35.4-49); HEMOGLOBIN 13.1 GM/dL (11.7-16.9); MCH 30.9 pg (25.7-33.7); MCHC 33.4 g/dl (32.0-35.9); MEAN CELL VOLUME 92.5 fl (80-96); MEAN PLT VOLUME 9.1 fl (7.5-11.1); PLATELET COUNT 182 10^3/uL (134-434); RBC 4.23 M/mm3 (4.00-5.60); RDW 14.1 % (11.9-15.9); WHITE BLOOD COUNT 5.7 K/mm3 (4.0-10.0)
[2023-04-10 11:08] LABS: CHLORIDE 108 mmol/L (98-107); POTASSIUM 3.9 mmol/L (3.5-5.1); SODIUM 136 mmol/L (136-145)
[2023-04-10 11:14] LABS: CALCIUM 9.3 mg/dL (8.5-10.1)
[2023-04-10 11:16] LABS: ALBUMIN 3.7 g/dl (3.4-5.0); ANION GAP 5 mmol/L (4-13); BLOOD UREA NITROGEN 29.4 mg/dL (7-18); CO2 23 mmol/L (21-32); GLUCOSE,RANDOM 128 mg/dL (74-106)
[2023-04-10 11:19] LABS: BILIRUBIN,TOTAL 0.7 mg/dL (0.2-1); CREATININE 1.3 mg/dL (0.55-1.3); SGOT/AST 30 U/L (15-37); SGPT/ALT 40 U/L (13-61); TOT PROT 7.1 g/dl (6.4-8.2)
[2023-04-10 11:21] LABS: ALK PHOS 73 U/L (45-117)
[2023-04-10] MEDS: IBUPROFEN 600 MG TABLET (FP) PO PRN (11:47)
[2023-04-10] MEDS: MAG HYDROX/AL HYDROX/SIMETH 30 ML UNIT-DOSE CUP PO PRN (13:37)
[2023-04-10] MEDS ORDERED: HYDROCORTISONE 2.5% LOTION - 1 BOTTLE TP PRN (14:45)
[2023-04-10] MEDS ORDERED: NAPROXEN 375 MG TABLET PO PRN (14:48)
[2023-04-10] MEDS: THIAMINE HCL 100 MG TABLET (FP) PO SCH (22:11)
[2023-04-10] MEDS: MELATONIN 5 MG TABLETS PO SCH (22:11)
[2023-04-11] MEDS: ACETAMINOPHEN 325 MG TABLET (FP) PO PRN ×2 (05:22→15:39)
[2023-04-11] MEDS: MAG HYDROX/AL HYDROX/SIMETH 30 ML UNIT-DOSE CUP PO PRN ×2 (05:22→14:00)
[2023-04-11] MEDS: LORazepam 1 MG TABLET PO SCH ×3 (05:22→17:10)
[2023-04-11] MEDS: MAGNESIUM HYDROX 2400MG/30ML ORAL SUSPENSION 30 ML CUP PO PRN (05:34)
[2023-04-11] MEDS: BENZOCAINE/MENTHOL (CHLORASEPTIC ) LOZENGE MM PRN (06:33)
[2023-04-11] MEDS: FLUTICASONE PROP 0.05% 16 GM NASAL SPRAY NS SCH (10:16)
[2023-04-11] MEDS: PRENATAL VITAMINS W/ FOLIC ACID TABLET (FP) PO SCH (10:17)
[2023-04-11] MEDS: ARTIFICIAL TEARS (POLYVINYL ALCOHOL) OPTH DROPS OU PRN ×2 (10:17→15:44)
[2023-04-11] MEDS: amLODIPine BESYLATE 10 MG TABLET (FP) PO SCH (10:18)
[2023-04-11] MEDS: LISINOPRIL 20 MG TABLET PO SCH (10:18)
[2023-04-11] MEDS: HYDROCORTISONE 2.5% TOPICAL CREAM 30 GM TUBE RC SCH (10:18)
[2023-04-11] MEDS: NAPROXEN 375 MG TABLET PO PRN ×2 (10:23→17:14)
[2023-04-11] MEDS: SODIUM CHLORIDE NASAL SPRAY 44 ML BOTTLE NS PRN (15:43)
[2023-04-11] MEDS ORDERED: LORazepam 0.5 MG TABLET PO SCH (20:07)
[2023-04-11] MEDS: MELATONIN 5 MG TABLETS PO SCH (22:24)
[2023-04-11] MEDS: THIAMINE HCL 100 MG TABLET (FP) PO SCH (22:24)
[2023-04-12] MEDS ORDERED: LORazepam 0.5 MG TABLET PO PRN
[2023-04-12] MEDS: LORazepam 0.5 MG TABLET PO SCH ×5 (05:41→23:01)
[2023-04-12] MEDS: MAGNESIUM HYDROX 2400MG/30ML ORAL SUSPENSION 30 ML CUP PO PRN (05:42)
[2023-04-12] MEDS: guaiFENesin 200 MG/10 ML 10 ML UNIT-DOSE CUPS PO PRN ×2 (05:45→14:55)
[2023-04-12] MEDS: PRENATAL VITAMINS W/ FOLIC ACID TABLET (FP) PO SCH (10:23)
[2023-04-12] MEDS: amLODIPine BESYLATE 10 MG TABLET (FP) PO SCH (10:23)
[2023-04-12] MEDS: HYDROCORTISONE 2.5% TOPICAL CREAM 30 GM TUBE RC SCH (10:23)
[2023-04-12] MEDS: LISINOPRIL 20 MG TABLET PO SCH (10:23)
[2023-04-12] MEDS: FLUTICASONE PROP 0.05% 16 GM NASAL SPRAY NS SCH (10:24)
[2023-04-12] MEDS: NAPROXEN 375 MG TABLET PO PRN ×2 (10:26→22:33)
[2023-04-12] MEDS: ARTIFICIAL TEARS (POLYVINYL ALCOHOL) OPTH DROPS OU PRN (10:27)
[2023-04-12] MEDS: SODIUM CHLORIDE NASAL SPRAY 44 ML BOTTLE NS PRN (11:57)
[2023-04-12] MEDS: MAG HYDROX/AL HYDROX/SIMETH 30 ML UNIT-DOSE CUP PO PRN (12:04)
[2023-04-12] MEDS: IBUPROFEN 600 MG TABLET (FP) PO PRN (14:57)
[2023-04-12] MEDS: THIAMINE HCL 100 MG TABLET (FP) PO SCH ×2 (22:33→23:01)
[2023-04-12] MEDS: MELATONIN 5 MG TABLETS PO SCH ×2 (22:33→23:01)
[2023-04-13] MEDS: guaiFENesin 200 MG/10 ML 10 ML UNIT-DOSE CUPS PO PRN (04:06)
[2023-04-13] MEDS: BENZOCAINE/MENTHOL (CHLORASEPTIC ) LOZENGE MM PRN (04:07)
[2023-04-13] MEDS ORDERED: LORazepam 0.5 MG TABLET PO ONE (05:00)
[2023-04-13] MEDS: IBUPROFEN 600 MG TABLET (FP) PO PRN (05:47)
[2023-04-13] MEDS: HYDROCORTISONE 2.5% TOPICAL CREAM 30 GM TUBE RC SCH (09:16)
[2023-04-13] MEDS: PRENATAL VITAMINS W/ FOLIC ACID TABLET (FP) PO SCH (09:16)
[2023-04-13] MEDS: amLODIPine BESYLATE 10 MG TABLET (FP) PO SCH (09:16)
[2023-04-13] MEDS: LISINOPRIL 20 MG TABLET PO SCH (09:16)
[2023-04-13] MEDS: FLUTICASONE PROP 0.05% 16 GM NASAL SPRAY NS SCH (09:16)
[2023-04-13 09:28] VITALS: BP 144/80; PULSE 89; RESP 19; TEMP 98.1
== END 2023-04-13 09:15 | disposition home or self-care (01) | DRG 775 ==
LOC: YASAS 11:05 → Y6N 16:32
PROVIDERS: ADMIT Allergy & Immunology; ATTEND Surgery
PROC: HZ2ZZZZ Detoxification Services for Substance Abuse Treatment (ICD-10-PCS; principal; 2023-04-09)
DX: F10.230 Alcohol dependence with withdrawal, uncomplicated (principal); F17.210 Nicotine dependence, cigarettes, uncomplicated; G62.9 Polyneuropathy, unspecified; H04.123 Dry eye syndrome of bilateral lacrimal glands; I10 Essential (primary) hypertension; K21.9 Gastro-esophageal reflux disease without esophagitis; L29.8 Other pruritus; M54.50 Low back pain, unspecified; Z99.89 Dependence on other enabling machines and devices; Z28.310 Unvaccinated for COVID-19; Z88.0 Allergy status to penicillin; Z88.7 Allergy status to serum and vaccine
CPT/HCPCS: 36415; 71046-TC-FY; 80053; 80307; 85027; 86593; 86780; 87635; J0475

== ENCOUNTER 2023-06-09 19:25 | Inpatient (IN) | payer OTHER ==
[2023-06-10 02:57] VITALS: BMI 30.3
[2023-06-10] MEDS ORDERED: NALOXONE HCL 0.4 MG/ML VIAL IM PRN (11:32)
[2023-06-10] MEDS ORDERED: NALOXONE HCL (KLOXXADO) 8 MG SPRAY NS PRN (11:32)
[2023-06-10] MEDS ORDERED: BENZONATATE 200 MG CAPSULE PO PRN (11:32)
[2023-06-10] MEDS ORDERED: guaiFENesin 600 MG TABLET.ER (FP) PO PRN (11:32)
[2023-06-10] MEDS ORDERED: LORazepam 1 MG TABLET PO PRN (11:32)
[2023-06-10] MEDS ORDERED: IBUPROFEN 400 MG TABLET (FP) PO PRN (11:32)
[2023-06-10] MEDS ORDERED: ONDANSETRON *ODT* 4 MG TABLET SL PRN (11:32)
[2023-06-10] MEDS ORDERED: POLYETHYLENE GLYCOL (HEALTHYLAX) 3350 17 GM PACKET PO PRN (11:32)
[2023-06-10] MEDS ORDERED: LOPERAMIDE HCL 2 MG CAPSULE PO PRN (11:32)
[2023-06-10] MEDS ORDERED: DICYCLOMINE HCL 10 MG CAPSULE PO PRN (11:32)
[2023-06-10] MEDS ORDERED: HYDROCORTISONE 1% TOPICAL CREAM 30 GM TUBE TP PRN (11:34)
[2023-06-10] MEDS ORDERED: BENZOCAINE 28 GM HEMORRHOIDAL OINTMENT RC PRN (11:36)
[2023-06-10] MEDS ORDERED: LORazepam 2 MG TABLET ONE (12:24)
[2023-06-10] MEDS: LORazepam 2 MG TABLET PO ONE (12:39)
[2023-06-10] MEDS: PANTOPRAZOLE 40 MG TABLET PO SCH (13:15)
[2023-06-10] MEDS: LORazepam 2 MG TABLET PO SCH (17:40)
[2023-06-10] MEDS: MAG HYDROX/AL HYDROX/SIMETH 30 ML UNIT-DOSE CUP PO PRN (17:42)
[2023-06-10] MEDS: THIAMINE HCL 100 MG TABLET (FP) PO SCH (22:37)
[2023-06-10] MEDS: IBUPROFEN 600 MG TABLET (FP) PO PRN (22:39)
[2023-06-10] MEDS: MELATONIN 5 MG TABLETS PO SCH (22:41)
[2023-06-10] MEDS: BENZOCAINE/MENTHOL (CHLORASEPTIC ) LOZENGE MM PRN (22:41)
[2023-06-11] MEDS: METHOCARBAMOL 500 MG TABLET PO PRN (06:09)
[2023-06-11] MEDS: amLODIPine BESYLATE 10 MG TABLET (FP) PO SCH (10:30)
[2023-06-11] MEDS: PRENATAL VITAMINS W/ FOLIC ACID TABLET (FP) PO SCH (10:30)
[2023-06-11 11:36] LABS: HEMATOCRIT 37.9 % (35.4-49); HEMOGLOBIN 13.2 GM/dL (11.7-16.9); MCHC 34.8 g/dl (32.0-35.9); MEAN PLT VOLUME 9.2 fl (7.5-11.1); PLATELET COUNT 170 10^3/uL (134-434); RBC 4.12 M/mm3 (4.00-5.60); RDW 14.3 % (11.9-15.9); WHITE BLOOD COUNT 7.1 K/mm3 (4.0-10.0)
[2023-06-11 11:39] LABS: CHLORIDE 109 mmol/L (98-107); POTASSIUM 4.3 mmol/L (3.5-5.1); SODIUM 139 mmol/L (136-145)
[2023-06-11 11:41] LABS: CALCIUM 8.5 mg/dL (8.5-10.1)
[2023-06-11 11:42] LABS: ALBUMIN 3.8 g/dl (3.4-5.0); ANION GAP 5 mmol/L (4-13); BLOOD UREA NITROGEN 23.7 mg/dL (7-18); CO2 25 mmol/L (21-32); GLUCOSE,RANDOM 136 mg/dL (74-106)
[2023-06-11 11:45] LABS: CREATININE 1.3 mg/dL (0.55-1.3); SGOT/AST 32 U/L (15-37); SGPT/ALT 45 U/L (13-61)
[2023-06-11 11:47] LABS: BILIRUBIN,TOTAL 0.5 mg/dL (0.2-1); TOT PROT 7.4 g/dl (6.4-8.2)
[2023-06-11 11:48] LABS: ALK PHOS 80 U/L (45-117)
[2023-06-11] MEDS ORDERED: LACTULOSE 20 GM/30 ML UDC (FOR ORAL USE ONLY) PO PRN (13:32)
[2023-06-11] MEDS: METOPROLOL TARTRATE 50 MG TABLET (FP) PO SCH (14:12)
[2023-06-11] MEDS: GABAPENTIN 300 MG CAPSULE PO SCH (14:12)
[2023-06-11] MEDS: ARTIFICIAL TEARS OPHTHALMIC DROPS OU PRN (22:32)
[2023-06-11] MEDS: HYDROCORTISONE 2.5% TOPICAL CREAM 30 GM TUBE RC SCH (22:33)
[2023-06-11] MEDS: NAPROXEN 500 MG TABLET PO PRN (22:35)
[2023-06-12] MEDS: LORazepam 1 MG TABLET PO SCH (05:57)
[2023-06-12] MEDS: MAGNESIUM HYDROX 2400MG/30ML ORAL SUSPENSION 30 ML CUP PO PRN (05:58)
[2023-06-12] MEDS: ACETAMINOPHEN 325 MG TABLET (FP) PO PRN (10:09)
[2023-06-12] MEDS: FLUTICASONE PROP 0.05% 16 GM NASAL SPRAY NS PRN (10:11)
[2023-06-12] MEDS: BISMUTH SUBSALICYLATE 524 MG/30 ML PO PRN (22:25)
[2023-06-13] MEDS ORDERED: LORazepam 0.5 MG TABLET PO PRN
[2023-06-13] MEDS: LORazepam 0.5 MG TABLET PO SCH (05:45)
[2023-06-13] MEDS: guaiFENesin 200 MG/10 ML 10 ML UNIT-DOSE CUPS PO PRN (22:25)
[2023-06-14] MEDS: LORazepam 0.5 MG TABLET PO ONE (05:57)
[2023-06-14 09:06] VITALS: BP 118/76; PULSE 80; RESP 17; TEMP 98.4
== END 2023-06-14 09:52 | disposition home or self-care (01) | DRG 775 ==
LOC: YASAS 19:25 → Y3N 06-10 12:22
PROVIDERS: ADMIT Allergy & Immunology; ATTEND Surgery
PROC: HZ2ZZZZ Detoxification Services for Substance Abuse Treatment (ICD-10-PCS; principal; 2023-06-10)
DX: F10.230 Alcohol dependence with withdrawal, uncomplicated (principal); F17.210 Nicotine dependence, cigarettes, uncomplicated; H04.123 Dry eye syndrome of bilateral lacrimal glands; I10 Essential (primary) hypertension; K21.9 Gastro-esophageal reflux disease without esophagitis; M54.50 Low back pain, unspecified; G89.29 Other chronic pain; R79.89 Other specified abnormal findings of blood chemistry; Z86.19 Personal history of other infectious and parasitic diseases; Z28.310 Unvaccinated for COVID-19; Z28.9 Immunization not carried out for unspecified reason; Z88.0 Allergy status to penicillin; Z88.7 Allergy status to serum and vaccine
CPT/HCPCS: 36415; 80053; 80307; 82140; 85027; 86593; 86780; 87635; 87811

== ENCOUNTER 2023-08-09 21:35 | Inpatient (IN) | payer OTHER ==
[2023-08-09 22:20] VITALS: BMI 27.7
[2023-08-09] MEDS ORDERED: LOPERAMIDE HCL 2 MG CAPSULE PO PRN (23:13)
[2023-08-09] MEDS ORDERED: NALOXONE HCL (KLOXXADO) 8 MG SPRAY NS PRN (23:13)
[2023-08-09] MEDS ORDERED: NALOXONE HCL 0.4 MG/ML VIAL IM PRN (23:13)
[2023-08-09] MEDS ORDERED: POLYETHYLENE GLYCOL (HEALTHYLAX) 3350 17 GM PACKET PO PRN (23:13)
[2023-08-09] MEDS ORDERED: BENZONATATE 200 MG CAPSULE PO PRN (23:13)
[2023-08-09] MEDS ORDERED: NICOTINE POLACRILEX 2 MG GUM BUC PRN (23:13)
[2023-08-09] MEDS ORDERED: MAGNESIUM HYDROX 2400MG/30ML ORAL SUSPENSION 30 ML CUP PO PRN (23:13)
[2023-08-10] MEDS: NICOTINE 14 MG/24 HOURS TOPICAL PATCH TD SCH (10:47)
[2023-08-10] MEDS: amLODIPine BESYLATE 10 MG TABLET (FP) PO SCH (10:50)
[2023-08-10] MEDS: METOPROLOL TARTRATE 50 MG TABLET (FP) PO SCH (10:50)
[2023-08-10] MEDS: diazePAM 5 MG TABLET PO SCH (10:50)
[2023-08-10] MEDS: PRENATAL VITAMINS W/ FOLIC ACID TABLET (FP) PO SCH (10:51)
[2023-08-10] MEDS: ARTIFICIAL TEARS OPHTHALMIC DROPS OU SCH ×2 (10:52→22:27)
[2023-08-10] MEDS: FLUTICASONE PROP 0.05% 16 GM NASAL SPRAY NS SCH (11:06)
[2023-08-10 11:23] LABS: HEMATOCRIT 40.4 % (35.4-49); HEMOGLOBIN 13.5 GM/dL (11.7-16.9); MCH 31.1 pg (25.7-33.7); MCHC 33.3 g/dl (32.0-35.9); MEAN CELL VOLUME 93.4 fl (80-96); MEAN PLT VOLUME 8.7 fl (7.5-11.1); PLATELET COUNT 229 10^3/uL (134-434); RBC 4.33 M/mm3 (4.00-5.60); RDW 13.9 % (11.9-15.9); WHITE BLOOD COUNT 9.7 K/mm3 (4.0-10.0)
[2023-08-10 11:40] LABS: ALBUMIN 3.6 g/dl (3.4-5.0); CALCIUM 8.7 mg/dL (8.5-10.1)
[2023-08-10 11:41] LABS: BLOOD UREA NITROGEN 22.6 mg/dL (7-18)
[2023-08-10 11:42] LABS: CREATININE 1.4 mg/dL (0.55-1.3)
[2023-08-10 11:43] LABS: BILIRUBIN,TOTAL 0.6 mg/dL (0.2-1); TOT PROT 7.2 g/dl (6.4-8.2)
[2023-08-10] MEDS: IBUPROFEN 600 MG TABLET (FP) PO PRN (13:36)
[2023-08-10] MEDS: GABAPENTIN 300 MG CAPSULE PO SCH (13:36)
[2023-08-10] MEDS: PANTOPRAZOLE 40 MG TABLET PO SCH (17:39)
[2023-08-10] MEDS: MAG HYDROX/AL HYDROX/SIMETH 30 ML UNIT-DOSE CUP PO PRN (18:20)
[2023-08-10] MEDS: PHENYLEPHRINE HCL/COCOA BUTTER 1 EACH SUPP.RECT RC SCH (22:26)
[2023-08-10] MEDS: MELATONIN 5 MG TABLETS PO SCH (22:28)
[2023-08-10] MEDS: THIAMINE HCL 100 MG TABLET (FP) PO SCH (22:28)
[2023-08-11] MEDS: guaiFENesin 600 MG TABLET.ER (FP) PO PRN (05:46)
[2023-08-11] MEDS: diazePAM 5 MG TABLET PO SCH (05:47)
[2023-08-11] MEDS: BENZOCAINE/MENTHOL (CHLORASEPTIC ) LOZENGE MM PRN (06:03)
[2023-08-11] MEDS: HYDROCORTISONE 2.5% TOPICAL CREAM 30 GM TUBE TP SCH (11:58)
[2023-08-11] MEDS: IBUPROFEN 400 MG TABLET (FP) PO PRN (16:46)
[2023-08-11 17:23] LABS: PH,URINE 5.5 (5.0-8.0); URINE APPEARANCE CLEAR; URINE BILIRUBIN NEGATIVE (NEGATIVE); URINE COLOR YELLOW; URINE GLUCOSE (UA) NEGATIVE (NEGATIVE); URINE KETONE TRACE (NEGATIVE); URINE LEUK ESTERASE NEGATIVE (NEGATIVE); URINE NITRITE NEGATIVE (NEGATIVE); URINE PROTEIN NEGATIVE (NEGATIVE)
[2023-08-11] MEDS: ACETAMINOPHEN 325 MG TABLET (FP) PO PRN (19:14)
[2023-08-11] MEDS: guaiFENesin 200 MG/10 ML 10 ML UNIT-DOSE CUPS PO PRN (23:27)
[2023-08-12] MEDS: diazePAM 5 MG TABLET PO SCH (06:10)
[2023-08-12] MEDS: SODIUM CHLORIDE NASAL SPRAY 44 ML BOTTLE NS PRN (17:22)
[2023-08-13] MEDS: diazePAM 5 MG TABLET PO ONE (05:38)
[2023-08-14] MEDS: FAMOTIDINE 20 MG TABLET PO SCH (06:00)
[2023-08-14] MEDS ORDERED: FAMOTIDINE 20 MG TABLET PO SCH (06:00)
[2023-08-14 09:37] VITALS: BP 133/79; PULSE 80; RESP 18; TEMP 97.8
== END 2023-08-14 09:32 | disposition home or self-care (01) | DRG 775 ==
LOC: YASAS 21:35 → Y6N 23:13
PROVIDERS: ADMIT Allergy & Immunology; ATTEND Surgery
PROC: HZ2ZZZZ Detoxification Services for Substance Abuse Treatment (ICD-10-PCS; principal; 2023-08-09)
DX: F10.230 Alcohol dependence with withdrawal, uncomplicated (principal); F17.210 Nicotine dependence, cigarettes, uncomplicated; I10 Essential (primary) hypertension; K21.9 Gastro-esophageal reflux disease without esophagitis; K64.9 Unspecified hemorrhoids; G62.9 Polyneuropathy, unspecified; H04.123 Dry eye syndrome of bilateral lacrimal glands; J30.9 Allergic rhinitis, unspecified; Z86.19 Personal history of other infectious and parasitic diseases; Z86.11 Personal history of tuberculosis; Z28.310 Unvaccinated for COVID-19; Z28.9 Immunization not carried out for unspecified reason; Z88.7 Allergy status to serum and vaccine; Z88.0 Allergy status to penicillin
CPT/HCPCS: 36415; 80053; 80307; 81003; 85027; 86593; 86780; 93005; 93010

== ENCOUNTER 2023-09-11 21:37 | Inpatient (IN) | payer OTHER ==
[2023-09-11 22:45] VITALS: BMI 30.3
[2023-09-12] MEDS ORDERED: NALOXONE HCL 0.4 MG/ML VIAL IM PRN (00:26)
[2023-09-12] MEDS ORDERED: MAGNESIUM HYDROX 2400MG/30ML ORAL SUSPENSION 30 ML CUP PO PRN (00:26)
[2023-09-12] MEDS ORDERED: BISMUTH SUBSALICYLATE 524 MG/30 ML PO PRN (00:26)
[2023-09-12] MEDS ORDERED: BENZONATATE 200 MG CAPSULE PO PRN (00:26)
[2023-09-12] MEDS ORDERED: guaiFENesin 600 MG TABLET.ER (FP) PO PRN (00:26)
[2023-09-12] MEDS ORDERED: POLYETHYLENE GLYCOL (HEALTHYLAX) 3350 17 GM PACKET PO PRN (00:26)
[2023-09-12] MEDS ORDERED: NALOXONE HCL (KLOXXADO) 8 MG SPRAY NS PRN (00:26)
[2023-09-12] MEDS ORDERED: LOPERAMIDE HCL 2 MG CAPSULE PO PRN (00:26)
[2023-09-12] MEDS ORDERED: ONDANSETRON *ODT* 4 MG TABLET SL PRN (00:26)
[2023-09-12] MEDS ORDERED: chlordiazePOXIDE HCL 25 MG CAPSULE PO PRN (00:29)
[2023-09-12] MEDS: chlordiazePOXIDE HCL 25 MG CAPSULE PO SCH (05:51)
[2023-09-12] MEDS: PRENATAL VITAMINS W/ FOLIC ACID TABLET (FP) PO SCH (10:22)
[2023-09-12] MEDS: METOPROLOL TARTRATE 50 MG TABLET (FP) PO SCH (10:22)
[2023-09-12] MEDS: amLODIPine BESYLATE 10 MG TABLET (FP) PO SCH (10:22)
[2023-09-12] MEDS: FAMOTIDINE 20 MG TABLET PO SCH (10:22)
[2023-09-12] MEDS: GABAPENTIN 300 MG CAPSULE PO SCH (13:19)
[2023-09-12] MEDS: ARTIFICIAL TEARS OPHTHALMIC DROPS OU SCH (13:19)
[2023-09-12] MEDS ORDERED: PATIENT'S OWN MEDICATION (NON-FORMULARY) (Dextran 70/Hypromellose/Pf [Artificial Tears Dro OP SCH (14:00)
[2023-09-12] MEDS: IBUPROFEN 600 MG TABLET (FP) PO PRN (17:49)
[2023-09-12] MEDS: MELATONIN 5 MG TABLETS PO SCH (23:14)
[2023-09-12] MEDS: THIAMINE 100 MG TABLET PO SCH (23:15)
[2023-09-13] MEDS: chlordiazePOXIDE HCL 25 MG CAPSULE PO SCH (05:47)
[2023-09-13 11:36] LABS: HEMATOCRIT 36.1 % (35.4-49); HEMOGLOBIN 12.5 GM/dL (11.7-16.9); MCH 31.8 pg (25.7-33.7); MCHC 34.7 g/dl (32.0-35.9); MEAN CELL VOLUME 91.6 fl (80-96); MEAN PLT VOLUME 8.8 fl (7.5-11.1); PLATELET COUNT 145 10^3/uL (134-434); RBC 3.94 M/mm3 (4.00-5.60); WHITE BLOOD COUNT 6.6 K/mm3 (4.0-10.0)
[2023-09-13 11:57] LABS: POTASSIUM 3.9 mmol/L (3.5-5.1)
[2023-09-13 12:00] LABS: CALCIUM 8.7 mg/dL (8.5-10.1)
[2023-09-13 12:01] LABS: ALBUMIN 3.3 g/dl (3.4-5.0); BLOOD UREA NITROGEN 15.9 mg/dL (7-18)
[2023-09-13 12:05] LABS: CREATININE 1.1 mg/dL (0.55-1.3)
[2023-09-13 12:06] LABS: TOT PROT 6.7 g/dl (6.4-8.2)
[2023-09-13 12:16] LABS: BILIRUBIN,TOTAL 0.5 mg/dL (0.2-1)
[2023-09-13] MEDS: MAG HYDROX/AL HYDROX/SIMETH 30 ML UNIT-DOSE CUP PO PRN (14:09)
[2023-09-13] MEDS: LACTULOSE 20 GM/30 ML UDC (FOR ORAL USE ONLY) PO SCH (17:37)
[2023-09-13] MEDS: BENZOCAINE/MENTHOL (CHLORASEPTIC ) LOZENGE MM PRN (22:39)
[2023-09-14] MEDS ORDERED: chlordiazePOXIDE HCL 10 MG CAPSULE PO PRN
[2023-09-14] MEDS: chlordiazePOXIDE HCL 10 MG CAPSULE PO SCH (05:37)
[2023-09-14] MEDS: IBUPROFEN 400 MG TABLET (FP) PO PRN (10:37)
[2023-09-14] MEDS: HYDROCORTISONE 0.5% TOPICAL CREAM 30 GM TUBE TP SCH (11:21)
[2023-09-14] MEDS: HYDROCORTISONE 2.5% TOPICAL CREAM 30 GM TUBE RC SCH (11:21)
[2023-09-14] MEDS: FLUTICASONE PROP 0.05% 16 GM NASAL SPRAY NS SCH (11:21)
[2023-09-15] MEDS: chlordiazePOXIDE HCL 10 MG CAPSULE PO SCH (05:37)
[2023-09-15] MEDS: ACETAMINOPHEN 325 MG TABLET (FP) PO PRN (22:32)
[2023-09-16] MEDS: chlordiazePOXIDE HCL 10 MG CAPSULE PO ONE (05:51)
[2023-09-17] MEDS: NALTREXONE HCL 50 MG TABLET PO SCH (13:58)
[2023-09-18 08:43] VITALS: BP 140/64; PULSE 90; RESP 18; TEMP 97.3
== END 2023-09-18 10:15 | disposition home or self-care (01) | DRG 775 ==
LOC: YASAS 21:37 → Y6N 09-12 01:46
PROVIDERS: ADMIT Allergy & Immunology; ATTEND Surgery
PROC: HZ2ZZZZ Detoxification Services for Substance Abuse Treatment (ICD-10-PCS; principal; 2023-09-12)
DX: F10.230 Alcohol dependence with withdrawal, uncomplicated (principal); F17.210 Nicotine dependence, cigarettes, uncomplicated; G62.9 Polyneuropathy, unspecified; I10 Essential (primary) hypertension; K21.9 Gastro-esophageal reflux disease without esophagitis; K64.9 Unspecified hemorrhoids; J30.9 Allergic rhinitis, unspecified; R79.89 Other specified abnormal findings of blood chemistry; Z86.11 Personal history of tuberculosis; Z86.19 Personal history of other infectious and parasitic diseases; Z88.0 Allergy status to penicillin; Z88.7 Allergy status to serum and vaccine
CPT/HCPCS: 36415; 80053; 80305; 82140; 85027; 86593; 86780; 93005; 93010

== ENCOUNTER 2023-10-26 01:55 | Inpatient (IN) | payer OTHER ==
[2023-10-26 02:26] VITALS: BMI 28.5
[2023-10-26] MEDS ORDERED: NALOXONE HCL 0.4 MG/ML VIAL IM PRN (02:51)
[2023-10-26] MEDS ORDERED: LOPERAMIDE HCL 2 MG CAPSULE PO PRN (02:51)
[2023-10-26] MEDS ORDERED: POLYETHYLENE GLYCOL (HEALTHYLAX) 3350 17 GM PACKET PO PRN (02:51)
[2023-10-26] MEDS ORDERED: BENZOCAINE/MENTHOL (CHLORASEPTIC ) LOZENGE MM PRN (02:51)
[2023-10-26] MEDS ORDERED: BENZONATATE 200 MG CAPSULE PO PRN (02:51)
[2023-10-26] MEDS ORDERED: NICOTINE POLACRILEX 2 MG GUM BUC PRN (02:51)
[2023-10-26] MEDS ORDERED: DICYCLOMINE HCL 10 MG CAPSULE PO PRN (02:51)
[2023-10-26] MEDS ORDERED: IBUPROFEN 600 MG TABLET (FP) PO PRN (02:51)
[2023-10-26] MEDS ORDERED: IBUPROFEN 400 MG TABLET (FP) PO PRN (02:51)
[2023-10-26] MEDS ORDERED: NALOXONE (NARCAN) HCL 4 MG/0.1 ML SPRAY NS PRN (02:51)
[2023-10-26] MEDS ORDERED: ONDANSETRON *ODT* 4 MG TABLET SL PRN (02:51)
[2023-10-26] MEDS ORDERED: guaiFENesin 600 MG TABLET.ER (FP) PO PRN (02:51)
[2023-10-26] MEDS ORDERED: MAGNESIUM HYDROX 2400MG/30ML ORAL SUSPENSION 30 ML CUP PO PRN (02:51)
[2023-10-26] MEDS ORDERED: amLODIPine BESYLATE 5 MG TABLET (FP) ONE (09:43)
[2023-10-26] MEDS ORDERED: PRENATAL VITAMINS W/ FOLIC ACID TABLET (FP) PO ONE (09:44)
[2023-10-26] MEDS ORDERED: NICOTINE 14 MG/24 HOURS TOPICAL PATCH TD ONE (09:44)
[2023-10-26] MEDS ORDERED: GABAPENTIN 100 MG CAPSULE ONE (09:44)
[2023-10-26] MEDS: amLODIPine BESYLATE 10 MG TABLET (FP) PO SCH (09:46)
[2023-10-26] MEDS: PRENATAL VITAMINS W/ FOLIC ACID TABLET (FP) PO SCH (09:46)
[2023-10-26] MEDS: GABAPENTIN 300 MG CAPSULE PO SCH (09:46)
[2023-10-26] MEDS: NICOTINE 14 MG/24 HOURS TOPICAL PATCH TD SCH (10:17)
[2023-10-26] MEDS: FAMOTIDINE 20 MG TABLET PO SCH (10:17)
[2023-10-26] MEDS: MELATONIN 5 MG TABLETS PO SCH (22:03)
[2023-10-26] MEDS: THIAMINE 100 MG TABLET PO SCH (23:04)
[2023-10-27] MEDS: hydrOXYzine PAMOATE 25 MG CAPSULE (FP) PO PRN (06:18)
[2023-10-27] MEDS ORDERED: chlordiazePOXIDE HCL 25 MG CAPSULE PO PRN (10:36)
[2023-10-27] MEDS ORDERED: FAMOTIDINE 20 MG TABLET PO SCH (10:45)
[2023-10-27] MEDS: chlordiazePOXIDE HCL 25 MG CAPSULE PO SCH (10:55)
[2023-10-27 12:48] LABS: HEMATOCRIT 33.5 % (35.4-49); HEMOGLOBIN 11.3 GM/dL (11.7-16.9); MCH 31.8 pg (25.7-33.7); MCHC 33.7 g/dl (32.0-35.9); MEAN CELL VOLUME 94.3 fl (80-96); MEAN PLT VOLUME 8.3 fl (7.5-11.1); PLATELET COUNT 61 10^3/uL (134-434); RBC 3.56 M/mm3 (4.00-5.60); RDW 16.1 % (11.9-15.9)
[2023-10-27] MEDS: ARTIFICIAL TEARS OPHTHALMIC DROPS OU SCH (15:32)
[2023-10-27] MEDS ORDERED: HYDROCORTISONE 0.5% TOPICAL OINTMENT TUBE TP PRN (18:28)
[2023-10-27] MEDS: MAG HYDROX/AL HYDROX/SIMETH 30 ML UNIT-DOSE CUP PO PRN (18:38)
[2023-10-27] MEDS: NAPROXEN 250 MG TABLET PO PRN (22:57)
[2023-10-27] MEDS: HYDROCORTISONE 0.5% TOPICAL CREAM 30 GM TUBE TP PRN (22:58)
[2023-10-27] MEDS: HYDROCORTISONE ACETATE 25 MG/SUPP.RECT RC ONE (23:23)
[2023-10-28] MEDS: FAMOTIDINE 20 MG TABLET PO SCH (08:01)
[2023-10-28] MEDS: BISMUTH SUBSALICYLATE 524 MG/30 ML PO PRN (23:03)
[2023-10-29] MEDS: chlordiazePOXIDE HCL 25 MG CAPSULE PO SCH (05:30)
[2023-10-29] MEDS: ACETAMINOPHEN 325 MG TABLET (FP) PO PRN (07:04)
[2023-10-29] MEDS: NALTREXONE HCL 50 MG TABLET PO SCH (10:15)
[2023-10-29] MEDS: SODIUM CHLORIDE NASAL SPRAY 44 ML BOTTLE NS PRN (10:20)
[2023-10-29 18:19] VITALS: RESP 18
[2023-10-29] MEDS: HYDROCORTISONE ACETATE 25 MG/SUPP.RECT RC PRN (22:43)
[2023-10-29] MEDS: HYDROCORTISONE 1% TOPICAL CREAM 30 GM TUBE TP PRN (22:44)
[2023-10-30] MEDS ORDERED: chlordiazePOXIDE HCL 10 MG CAPSULE PO PRN
[2023-10-30] MEDS: chlordiazePOXIDE HCL 10 MG CAPSULE PO SCH (05:51)
[2023-10-30 06:39] VITALS: BP 137/83; PULSE 60; TEMP 97.8
[2023-10-31] MEDS ORDERED: chlordiazePOXIDE HCL 10 MG CAPSULE PO SCH (05:00)
[2023-11-01] MEDS ORDERED: chlordiazePOXIDE HCL 10 MG CAPSULE PO ONE (05:00)
== END 2023-10-30 09:15 | disposition home or self-care (01) | DRG 775 ==
LOC: YASAS 01:55 → Y6N 13:05
PROVIDERS: ADMIT Allergy & Immunology; ATTEND Surgery
PROC: HZ2ZZZZ Detoxification Services for Substance Abuse Treatment (ICD-10-PCS; principal; 2023-10-26)
DX: F10.230 Alcohol dependence with withdrawal, uncomplicated (principal); F10.280 Alcohol dependence with alcohol-induced anxiety disorder; F41.9 Anxiety disorder, unspecified; D72.819 Decreased white blood cell count, unspecified; G62.9 Polyneuropathy, unspecified; I10 Essential (primary) hypertension; K21.9 Gastro-esophageal reflux disease without esophagitis; M54.50 Low back pain, unspecified; G89.29 Other chronic pain; R60.0 Localized edema; Z86.19 Personal history of other infectious and parasitic diseases; Z88.0 Allergy status to penicillin; Z88.7 Allergy status to serum and vaccine; Z56.0 Unemployment, unspecified; Z59.00 Homelessness unspecified
CPT/HCPCS: 36415; 80305; 85027; 86593; 86780

== ENCOUNTER 2023-11-22 19:01 | Inpatient (IN) | payer OTHER ==
[2023-11-22 19:28] VITALS: BMI 27.7
[2023-11-22] MEDS ORDERED: ONDANSETRON *ODT* 4 MG TABLET SL PRN (19:53)
[2023-11-22] MEDS ORDERED: BENZONATATE 200 MG CAPSULE PO PRN (19:53)
[2023-11-22] MEDS ORDERED: POLYETHYLENE GLYCOL (HEALTHYLAX) 3350 17 GM PACKET PO PRN (19:53)
[2023-11-22] MEDS ORDERED: IBUPROFEN 400 MG TABLET (FP) PO PRN (19:53)
[2023-11-22] MEDS ORDERED: NICOTINE POLACRILEX 2 MG GUM BUC PRN (19:53)
[2023-11-22] MEDS ORDERED: BENZOCAINE/MENTHOL (CHLORASEPTIC ) LOZENGE MM PRN (19:53)
[2023-11-22] MEDS ORDERED: NICOTINE POLACRILEX 2 MG LOZENGE BC PRN (19:53)
[2023-11-22] MEDS ORDERED: DICYCLOMINE HCL 10 MG CAPSULE PO PRN (19:53)
[2023-11-22] MEDS ORDERED: ACETAMINOPHEN 325 MG TABLET (FP) PO PRN (19:53)
[2023-11-22] MEDS ORDERED: MAGNESIUM HYDROX 2400MG/30ML ORAL SUSPENSION 30 ML CUP PO PRN (19:53)
[2023-11-22] MEDS ORDERED: guaiFENesin 600 MG TABLET.ER (FP) PO PRN (19:53)
[2023-11-22] MEDS ORDERED: P-EPHED 60MG/TRIPROLIDI 2.5MG TABLET PO PRN (19:53)
[2023-11-22] MEDS: amLODIPine BESYLATE 10 MG TABLET (FP) PO SCH (20:57)
[2023-11-22] MEDS: MELATONIN 5 MG TABLETS PO SCH (21:01)
[2023-11-22] MEDS: FAMOTIDINE 20 MG TABLET PO SCH (21:01)
[2023-11-22] MEDS: THIAMINE 100 MG TABLET PO SCH (21:02)
[2023-11-23] MEDS: PRENATAL VITAMINS W/ FOLIC ACID TABLET (FP) PO SCH (09:25)
[2023-11-23] MEDS: METHOCARBAMOL 500 MG TABLET PO PRN (09:25)
[2023-11-23] MEDS ORDERED: chlordiazePOXIDE HCL 25 MG CAPSULE PO PRN (09:38)
[2023-11-23] MEDS: chlordiazePOXIDE HCL 25 MG CAPSULE PO SCH (10:19)
[2023-11-23] MEDS: MAG HYDROX/AL HYDROX/SIMETH 30 ML UNIT-DOSE CUP PO PRN (15:13)
[2023-11-23] MEDS: IBUPROFEN 600 MG TABLET (FP) PO PRN (17:27)
[2023-11-24] MEDS: GABAPENTIN 300 MG CAPSULE PO SCH ×2 (10:15→13:34)
[2023-11-24] MEDS: ARTIFICIAL TEARS OPHTHALMIC DROPS OU PRN (11:05)
[2023-11-24] MEDS: HYDROCORTISONE 2.5% TOPICAL CREAM 30 GM TUBE RC SCH (12:35)
[2023-11-24] MEDS: HYDROCORTISONE 0.5% TOPICAL CREAM 30 GM TUBE TP SCH (12:36)
[2023-11-24] MEDS: BISMUTH SUBSALICYLATE 524 MG/30 ML PO PRN (15:16)
[2023-11-24] MEDS: LOPERAMIDE HCL 2 MG CAPSULE PO PRN (20:19)
[2023-11-25] MEDS: chlordiazePOXIDE HCL 25 MG CAPSULE PO SCH (05:24)
[2023-11-26] MEDS ORDERED: chlordiazePOXIDE HCL 10 MG CAPSULE PO PRN
[2023-11-26] MEDS: chlordiazePOXIDE HCL 10 MG CAPSULE PO SCH (05:40)
[2023-11-26] MEDS: NAPROXEN 375 MG TABLET PO SCH (11:21)
[2023-11-27] MEDS: chlordiazePOXIDE HCL 10 MG CAPSULE PO SCH (05:25)
[2023-11-28] MEDS: chlordiazePOXIDE HCL 10 MG CAPSULE PO ONE (05:35)
[2023-11-28 09:00] VITALS: BP 163/83; PULSE 80; RESP 16; TEMP 97.3
== END 2023-11-28 09:25 | disposition other institution (70) | DRG 775 ==
LOC: YASAS 19:01 → Y6N 20:01
PROVIDERS: ADMIT Allergy & Immunology; ATTEND Surgery
PROC: HZ2ZZZZ Detoxification Services for Substance Abuse Treatment (ICD-10-PCS; principal; 2023-11-22)
DX: F10.230 Alcohol dependence with withdrawal, uncomplicated (principal); F17.210 Nicotine dependence, cigarettes, uncomplicated; F10.280 Alcohol dependence with alcohol-induced anxiety disorder; G62.9 Polyneuropathy, unspecified; I10 Essential (primary) hypertension; K21.9 Gastro-esophageal reflux disease without esophagitis; K64.4 Residual hemorrhoidal skin tags; M54.50 Low back pain, unspecified; G89.29 Other chronic pain; Z86.11 Personal history of tuberculosis; Z86.19 Personal history of other infectious and parasitic diseases; Z88.0 Allergy status to penicillin; Z88.7 Allergy status to serum and vaccine; Z56.0 Unemployment, unspecified; Z59.00 Homelessness unspecified
CPT/HCPCS: 80305; 80307

== ENCOUNTER 2023-12-25 16:49 | Inpatient (IN) | payer OTHER ==
[2023-12-25 18:23] VITALS: BMI 27.7
[2023-12-25] MEDS ORDERED: BENZONATATE 200 MG CAPSULE PO PRN (18:41)
[2023-12-25] MEDS ORDERED: IBUPROFEN 400 MG TABLET (FP) PO PRN (18:41)
[2023-12-25] MEDS ORDERED: ONDANSETRON *ODT* 4 MG TABLET SL PRN (18:41)
[2023-12-25] MEDS ORDERED: IBUPROFEN 600 MG TABLET (FP) PO PRN (18:41)
[2023-12-25] MEDS ORDERED: LOPERAMIDE HCL 2 MG CAPSULE PO PRN (18:41)
[2023-12-25] MEDS ORDERED: guaiFENesin 600 MG TABLET.ER (FP) PO PRN (18:41)
[2023-12-25] MEDS ORDERED: MELATONIN 5 MG TABLETS PO PRN (18:41)
[2023-12-25] MEDS ORDERED: BENZOCAINE/MENTHOL (CHLORASEPTIC ) LOZENGE MM PRN (18:41)
[2023-12-25] MEDS ORDERED: POLYETHYLENE GLYCOL (HEALTHYLAX) 3350 17 GM PACKET PO PRN (18:41)
[2023-12-25] MEDS ORDERED: BISMUTH SUBSALICYLATE 524 MG/30 ML PO PRN (18:41)
[2023-12-25] MEDS: THIAMINE 100 MG TABLET PO SCH (21:29)
[2023-12-26] MEDS ORDERED: chlordiazePOXIDE HCL 25 MG CAPSULE PO PRN (10:33)
[2023-12-26] MEDS: FAMOTIDINE 20 MG TABLET PO SCH (10:38)
[2023-12-26] MEDS: NALTREXONE HCL 50 MG TABLET PO SCH (10:38)
[2023-12-26] MEDS: amLODIPine BESYLATE 10 MG TABLET (FP) PO SCH (10:39)
[2023-12-26] MEDS: PRENATAL VITAMINS W/ FOLIC ACID TABLET (FP) PO SCH (10:39)
[2023-12-26] MEDS: chlordiazePOXIDE HCL 25 MG CAPSULE PO SCH (11:00)
[2023-12-26] MEDS: HYDROCORTISONE 2.5% TOPICAL CREAM 30 GM TUBE TP SCH (11:53)
[2023-12-26 12:21] LABS: CHLORIDE 108 mmol/L (98-107); POTASSIUM 3.9 mmol/L (3.5-5.1); SODIUM 141 mmol/L (136-145)
[2023-12-26 12:23] LABS: HEMOGLOBIN 11.5 GM/dL (11.7-16.9); MCH 30.8 pg (25.7-33.7); MCHC 33.9 g/dl (32.0-35.9); MEAN CELL VOLUME 90.9 fl (80-96); MEAN PLT VOLUME 8.3 fl (7.5-11.1); PLATELET COUNT 182 10^3/uL (134-434); RBC 3.74 M/mm3 (4.00-5.60); RDW 16.4 % (11.9-15.9); WHITE BLOOD COUNT 5.5 K/mm3 (4.0-10.0)
[2023-12-26 12:27] LABS: GLUCOSE,RANDOM 129 mg/dL (74-106)
[2023-12-26 12:28] LABS: ALBUMIN 3.6 g/dl (3.4-5.0); ANION GAP 10 mmol/L (4-13); BLOOD UREA NITROGEN 15.9 mg/dL (7-18); CO2 23 mmol/L (21-32)
[2023-12-26 12:31] LABS: CREATININE 1.3 mg/dL (0.55-1.3); SGOT/AST 59 U/L (15-37); SGPT/ALT 76 U/L (13-61)
[2023-12-26 12:32] LABS: BILIRUBIN,TOTAL 0.4 mg/dL (0.2-1); TOT PROT 7.1 g/dl (6.4-8.2)
[2023-12-26 12:34] LABS: ALK PHOS 50 U/L (45-117)
[2023-12-26] MEDS: GABAPENTIN 300 MG CAPSULE PO SCH (14:08)
[2023-12-26] MEDS: MAG HYDROX/AL HYDROX/SIMETH 30 ML UNIT-DOSE CUP PO PRN (15:45)
[2023-12-26] MEDS: TETRAHYDROZOLINE HCL EYE DROPS OU PRN (15:47)
[2023-12-26] MEDS: traZODone HCL 50 MG TABLET (FP) PO SCH (22:13)
[2023-12-26] MEDS: FLUTICASONE PROP 0.05% 16 GM NASAL SPRAY NS SCH (23:27)
[2023-12-27] MEDS: ARTIFICIAL TEARS OPHTHALMIC DROPS OU PRN (10:27)
[2023-12-28] MEDS: chlordiazePOXIDE HCL 25 MG CAPSULE PO SCH (05:58)
[2023-12-28] MEDS: NAPROXEN 375 MG TABLET PO PRN (10:13)
[2023-12-28] MEDS: NAPROXEN 500 MG TABLET PO PRN (17:13)
[2023-12-28] MEDS: SENNOSIDES 8.8 MG/5 ML SYRUP PO SCH (22:27)
[2023-12-28] MEDS: ACETAMINOPHEN 325 MG TABLET (FP) PO PRN (22:32)
[2023-12-29] MEDS ORDERED: chlordiazePOXIDE HCL 10 MG CAPSULE PO PRN
[2023-12-29] MEDS: chlordiazePOXIDE HCL 10 MG CAPSULE PO SCH (05:59)
[2023-12-30] MEDS: chlordiazePOXIDE HCL 10 MG CAPSULE PO SCH (05:32)
[2023-12-31] MEDS: chlordiazePOXIDE HCL 10 MG CAPSULE PO ONE (05:34)
[2023-12-31] MEDS: BISACODYL 5 MG TABLET.DR (FP) PO ONE (14:33)
[2023-12-31] MEDS: P-EPHED 60MG/TRIPROLIDI 2.5MG TABLET PO PRN (18:28)
[2023-12-31] MEDS: DOCUSATE SODIUM 100 MG CAPSULE (FP) PO SCH (23:56)
[2024-01-01] MEDS: MAGNESIUM HYDROX 2400MG/30ML ORAL SUSPENSION 30 ML CUP PO PRN (06:04)
[2024-01-01] MEDS: SODIUM CHLORIDE NASAL SPRAY 44 ML BOTTLE NS PRN (13:10)
[2024-01-02 09:19] VITALS: BP 148/79; PULSE 92; RESP 18; TEMP 97.7
== END 2024-01-02 10:25 | disposition home or self-care (01) | DRG 775 ==
LOC: YASAS 16:49 → Y3N 20:42
PROVIDERS: ADMIT Allergy & Immunology; ATTEND Surgery
PROC: HZ2ZZZZ Detoxification Services for Substance Abuse Treatment (ICD-10-PCS; principal; 2023-12-25)
DX: F10.230 Alcohol dependence with withdrawal, uncomplicated (principal); F17.210 Nicotine dependence, cigarettes, uncomplicated; G62.9 Polyneuropathy, unspecified; I10 Essential (primary) hypertension; K21.9 Gastro-esophageal reflux disease without esophagitis; J30.2 Other seasonal allergic rhinitis; M54.50 Low back pain, unspecified; G89.29 Other chronic pain; H04.123 Dry eye syndrome of bilateral lacrimal glands; K64.9 Unspecified hemorrhoids; R76.8 Other specified abnormal immunological findings in serum; Z86.19 Personal history of other infectious and parasitic diseases; Z86.11 Personal history of tuberculosis; Z88.0 Allergy status to penicillin; Z88.7 Allergy status to serum and vaccine
CPT/HCPCS: 36415; 80053; 80305; 80307; 85027; 86593; 86780

== ENCOUNTER 2024-07-05 18:43 | Inpatient (IN) | payer OTHER ==
[2024-07-05 19:26] VITALS: BMI 30.3
[2024-07-05] MEDS ORDERED: BISMUTH SUBSALICYLATE 524 MG/30 ML PO PRN (19:33)
[2024-07-05] MEDS ORDERED: BENZONATATE 200 MG CAPSULE PO PRN (19:33)
[2024-07-05] MEDS ORDERED: NALOXONE (NARCAN) HCL 4 MG/0.1 ML SPRAY NS PRN (19:33)
[2024-07-05] MEDS ORDERED: ONDANSETRON *ODT* 4 MG TABLET SL PRN (19:33)
[2024-07-05] MEDS ORDERED: LOPERAMIDE HCL 2 MG CAPSULE PO PRN (19:33)
[2024-07-05] MEDS ORDERED: MAGNESIUM HYDROX 2400MG/30ML ORAL SUSPENSION 30 ML CUP PO PRN (19:33)
[2024-07-05] MEDS ORDERED: POLYETHYLENE GLYCOL (HEALTHYLAX) 3350 17 GM PACKET PO PRN (19:33)
[2024-07-05] MEDS ORDERED: TETRAHYDROZOLINE HCL EYE DROPS OU PRN (20:23)
[2024-07-05] MEDS: MELATONIN 5 MG TABLETS PO SCH (23:31)
[2024-07-05] MEDS: THIAMINE 100 MG TABLET PO SCH (23:31)
[2024-07-05] MEDS: chlordiazePOXIDE HCL 25 MG CAPSULE PO SCH (23:31)
[2024-07-05] MEDS ORDERED: MELATONIN 5 MG TABLETS ONE (23:37)
[2024-07-05] MEDS ORDERED: chlordiazePOXIDE HCL 25 MG CAPSULE ONE (23:37)
[2024-07-06 10:06] LABS: POTASSIUM 4.1 mmol/L (3.5-5.1)
[2024-07-06 10:09] LABS: HEMATOCRIT 39.3 % (35.4-49); HEMOGLOBIN 13.4 GM/dL (11.7-16.9); MCH 30.6 pg (25.7-33.7); MCHC 34.1 g/dl (32.0-35.9); MEAN CELL VOLUME 89.8 fl (80-96); MEAN PLT VOLUME 8.9 fl (7.5-11.1); PLATELET COUNT 213 10^3/uL (134-434); RBC 4.38 M/mm3 (4.00-5.60); RDW 15.1 % (11.9-15.9); WHITE BLOOD COUNT 9.1 K/mm3 (4.0-10.0)
[2024-07-06 10:11] LABS: CALCIUM 8.9 mg/dL (8.5-10.1)
[2024-07-06 10:12] LABS: BLOOD UREA NITROGEN 22.2 mg/dL (7-18)
[2024-07-06 10:14] LABS: ALBUMIN 3.9 g/dl (3.4-5.0)
[2024-07-06 10:16] LABS: BILIRUBIN,TOTAL 1.1 mg/dL (0.2-1); TOT PROT 7.8 g/dl (6.4-8.2)
[2024-07-06 10:17] LABS: CREATININE 1.2 mg/dL (0.55-1.3)
[2024-07-06] MEDS: PRENATAL VITAMINS W/ FOLIC ACID TABLET (FP) PO SCH (10:22)
[2024-07-06] MEDS: LORATADINE 10 MG TABLET PO SCH (15:38)
[2024-07-06] MEDS: GABAPENTIN 300 MG CAPSULE PO ONE (15:38)
[2024-07-06] MEDS: IBUPROFEN 400 MG TABLET (FP) PO PRN (17:24)
[2024-07-06] MEDS: FAMOTIDINE 20 MG TABLET PO SCH (22:32)
[2024-07-06] MEDS: HYDROCORTISONE 2.5% TOPICAL CREAM 30 GM TUBE TP SCH (22:39)
[2024-07-06] MEDS: GABAPENTIN 300 MG CAPSULE PO SCH (22:39)
[2024-07-06] MEDS: ARTIFICIAL TEARS OPHTHALMIC DROPS OU SCH (22:39)
[2024-07-07] MEDS: chlordiazePOXIDE HCL 25 MG CAPSULE PO SCH (06:56)
[2024-07-07] MEDS: chlordiazePOXIDE HCL 25 MG CAPSULE PO PRN (07:35)
[2024-07-07] MEDS: BENZOCAINE/MENTHOL (CHLORASEPTIC ) LOZENGE MM PRN (10:35)
[2024-07-07] MEDS: guaiFENesin 600 MG TABLET.ER (FP) PO PRN (10:36)
[2024-07-07] MEDS: ACETAMINOPHEN 325 MG TABLET (FP) PO PRN (14:44)
[2024-07-07] MEDS: MAG HYDROX/AL HYDROX/SIMETH 30 ML UNIT-DOSE CUP PO PRN (17:52)
[2024-07-07] MEDS: SODIUM CHLORIDE NASAL SPRAY 44 ML BOTTLE NS PRN (22:14)
[2024-07-08] MEDS ORDERED: chlordiazePOXIDE HCL 10 MG CAPSULE PO PRN
[2024-07-08] MEDS: chlordiazePOXIDE HCL 10 MG CAPSULE PO SCH (05:23)
[2024-07-08] MEDS: amLODIPine BESYLATE 10 MG TABLET (FP) PO SCH (10:08)
[2024-07-08] MEDS: NALTREXONE HCL 50 MG TABLET PO SCH (10:08)
[2024-07-08] MEDS: FAMOTIDINE 20 MG TABLET PO SCH (10:22)
[2024-07-09] MEDS: IBUPROFEN 600 MG TABLET (FP) PO PRN (05:22)
[2024-07-09] MEDS: chlordiazePOXIDE HCL 10 MG CAPSULE PO SCH (05:24)
[2024-07-09] MEDS: FAMOTIDINE 20 MG TABLET PO ONE (10:21)
[2024-07-09] MEDS ORDERED: BACLOFEN 10 MG TABLET (FP) PO PRN (10:34)
[2024-07-09 21:44] VITALS: TEMP 97.7
[2024-07-10] MEDS: chlordiazePOXIDE HCL 10 MG CAPSULE PO ONE (05:35)
[2024-07-10] MEDS: FAMOTIDINE 20 MG TABLET PO SCH (06:06)
[2024-07-10 08:58] VITALS: BP 120/71; PULSE 82; RESP 18
== END 2024-07-10 09:13 | disposition home or self-care (01) | DRG 775 ==
LOC: YASAS 18:43 → Y3N 23:43
PROVIDERS: ADMIT Allergy & Immunology; ATTEND Allergy & Immunology
PROC: HZ2ZZZZ Detoxification Services for Substance Abuse Treatment (ICD-10-PCS; principal; 2024-07-05)
DX: F10.230 Alcohol dependence with withdrawal, uncomplicated (principal); G62.9 Polyneuropathy, unspecified; H04.123 Dry eye syndrome of bilateral lacrimal glands; I10 Essential (primary) hypertension; K21.9 Gastro-esophageal reflux disease without esophagitis; K59.00 Constipation, unspecified; R76.11 Nonspecific reaction to tuberculin skin test without active tuberculosis; R76.8 Other specified abnormal immunological findings in serum; Z86.19 Personal history of other infectious and parasitic diseases; Z87.891 Personal history of nicotine dependence; Z88.7 Allergy status to serum and vaccine; Z88.0 Allergy status to penicillin
CPT/HCPCS: 36415; 80053; 80305; 80307; 85027; 86593; 86780

== ENCOUNTER 2024-09-27 12:10 | Inpatient (IN) | payer OTHER ==
[2024-09-27] MEDS ORDERED: MAGNESIUM HYDROX 2400MG/30ML ORAL SUSPENSION 30 ML CUP PO PRN (12:42)
[2024-09-27] MEDS ORDERED: POLYETHYLENE GLYCOL (HEALTHYLAX) 3350 17 GM PACKET PO PRN (12:42)
[2024-09-27] MEDS ORDERED: IBUPROFEN 400 MG TABLET (FP) PO PRN (12:42)
[2024-09-27] MEDS ORDERED: BENZONATATE 200 MG CAPSULE PO PRN (12:42)
[2024-09-27] MEDS ORDERED: DICYCLOMINE HCL 10 MG CAPSULE PO PRN (12:42)
[2024-09-27] MEDS ORDERED: ONDANSETRON *ODT* 4 MG TABLET SL PRN (12:42)
[2024-09-27] MEDS ORDERED: guaiFENesin 600 MG TABLET.ER (FP) PO PRN (12:42)
[2024-09-27] MEDS ORDERED: chlordiazePOXIDE HCL 25 MG CAPSULE PO PRN (12:42)
[2024-09-27] MEDS ORDERED: BISMUTH SUBSALICYLATE 524 MG/30 ML PO PRN (12:42)
[2024-09-27] MEDS ORDERED: LOPERAMIDE HCL 2 MG CAPSULE PO PRN (12:42)
[2024-09-27] MEDS ORDERED: hydrOXYzine PAMOATE 25 MG CAPSULE (FP) PO PRN (12:42)
[2024-09-27] MEDS ORDERED: NALOXONE (NARCAN) HCL 4 MG/0.1 ML SPRAY NS PRN (12:42)
[2024-09-27 12:43] VITALS: BMI 27.7
[2024-09-27] MEDS ORDERED: IBUPROFEN 600 MG TABLET (FP) PO ONE (13:59)
[2024-09-27] MEDS: IBUPROFEN 600 MG TABLET (FP) PO PRN (14:00)
[2024-09-27] MEDS: chlordiazePOXIDE HCL 25 MG CAPSULE PO SCH (17:27)
[2024-09-27] MEDS: MELATONIN 5 MG TABLETS PO SCH (22:50)
[2024-09-27] MEDS: THIAMINE 100 MG TABLET PO SCH (22:50)
[2024-09-27] MEDS: FAMOTIDINE 20 MG TABLET PO SCH (22:52)
[2024-09-27] MEDS: METOPROLOL TARTRATE 50 MG TABLET (FP) PO ONE (23:28)
[2024-09-28] MEDS: PRENATAL VITAMINS W/ FOLIC ACID TABLET (FP) PO SCH (10:09)
[2024-09-28] MEDS: amLODIPine BESYLATE 10 MG TABLET (FP) PO SCH (10:09)
[2024-09-28] MEDS: GABAPENTIN 300 MG CAPSULE PO SCH (10:09)
[2024-09-28] MEDS: LORATADINE 10 MG TABLET PO SCH (10:09)
[2024-09-28] MEDS: METHOCARBAMOL 500 MG TABLET PO PRN (10:10)
[2024-09-29] MEDS: chlordiazePOXIDE HCL 25 MG CAPSULE PO SCH (06:00)
[2024-09-29] MEDS: FLUTICASONE PROP 0.05% 16 GM NASAL SPRAY NS SCH (12:00)
[2024-09-29] MEDS: PHENYLEPHRINE HCL/COCOA BUTTER 1 EACH SUPP.RECT RC SCH (12:00)
[2024-09-29] MEDS: BENZOCAINE/MENTH/CETYLPYRD CL 1 EACH LOZENGE MM PRN (13:03)
[2024-09-29] MEDS: ARTIFICIAL TEARS OPHTHALMIC DROPS OU SCH (15:00)
[2024-09-30] MEDS ORDERED: chlordiazePOXIDE HCL 10 MG CAPSULE PO PRN
[2024-09-30] MEDS: chlordiazePOXIDE HCL 10 MG CAPSULE PO SCH (05:50)
[2024-09-30] MEDS: NAPROXEN 500 MG TABLET PO PRN (13:23)
[2024-09-30] MEDS: GABAPENTIN 100 MG CAPSULE PO SCH (13:24)
[2024-09-30] MEDS: MAG HYDROX/AL HYDROX/SIMETH 30 ML UNIT-DOSE CUP PO PRN (13:24)
[2024-10-01] MEDS: chlordiazePOXIDE HCL 10 MG CAPSULE PO SCH (05:44)
[2024-10-01] MEDS: ACETAMINOPHEN 325 MG TABLET (FP) PO PRN (05:45)
[2024-10-01] MEDS: BENZOCAINE/MENTHOL (CHLORASEPTIC ) LOZENGE MM PRN (17:11)
[2024-10-02] MEDS: chlordiazePOXIDE HCL 10 MG CAPSULE PO ONE (05:31)
[2024-10-02 11:14] VITALS: BP 139/78; PULSE 88; RESP 18; TEMP 97.9
== END 2024-10-02 10:02 | disposition home or self-care (01) | DRG 775 ==
LOC: YASAS 12:10 → Y6N 13:06
PROVIDERS: ADMIT Allergy & Immunology; ATTEND Family Medicine Addiction Medicine
PROC: HZ2ZZZZ Detoxification Services for Substance Abuse Treatment (ICD-10-PCS; principal; 2024-09-27)
DX: F10.230 Alcohol dependence with withdrawal, uncomplicated (principal); F17.210 Nicotine dependence, cigarettes, uncomplicated; F10.280 Alcohol dependence with alcohol-induced anxiety disorder; G62.9 Polyneuropathy, unspecified; I10 Essential (primary) hypertension; K21.9 Gastro-esophageal reflux disease without esophagitis; J30.9 Allergic rhinitis, unspecified; M54.50 Low back pain, unspecified; G89.29 Other chronic pain; Z86.19 Personal history of other infectious and parasitic diseases; Z86.11 Personal history of tuberculosis; Z88.0 Allergy status to penicillin; Z88.7 Allergy status to serum and vaccine
CPT/HCPCS: 36415; 80305; 80307; 93005; 93010

== ENCOUNTER 2024-10-25 16:05 | Inpatient (IN) | payer OTHER ==
[2024-10-25 16:36] VITALS: BMI 31.4
[2024-10-25] MEDS ORDERED: BISMUTH SUBSALICYLATE 524 MG/30 ML PO PRN (17:46)
[2024-10-25] MEDS ORDERED: guaiFENesin 600 MG TABLET.ER (FP) PO PRN (17:46)
[2024-10-25] MEDS ORDERED: BENZONATATE 200 MG CAPSULE PO PRN (17:46)
[2024-10-25] MEDS ORDERED: ACETAMINOPHEN 325 MG TABLET (FP) PO PRN (17:46)
[2024-10-25] MEDS ORDERED: hydrOXYzine PAMOATE 25 MG CAPSULE (FP) PO PRN (17:46)
[2024-10-25] MEDS ORDERED: POLYETHYLENE GLYCOL (HEALTHYLAX) 3350 17 GM PACKET PO PRN (17:46)
[2024-10-25] MEDS ORDERED: ONDANSETRON *ODT* 4 MG TABLET SL PRN (17:46)
[2024-10-25] MEDS ORDERED: BENZOCAINE/MENTHOL (CHLORASEPTIC ) LOZENGE MM PRN (17:46)
[2024-10-25] MEDS ORDERED: IBUPROFEN 400 MG TABLET (FP) PO PRN (17:46)
[2024-10-25] MEDS ORDERED: NALOXONE (NARCAN) HCL 4 MG/0.1 ML SPRAY NS PRN (17:46)
[2024-10-25] MEDS ORDERED: MAGNESIUM HYDROX 2400MG/30ML ORAL SUSPENSION 30 ML CUP PO PRN (17:46)
[2024-10-25] MEDS ORDERED: DICYCLOMINE HCL 10 MG CAPSULE PO PRN (17:46)
[2024-10-25] MEDS ORDERED: LOPERAMIDE HCL 2 MG CAPSULE PO PRN (17:46)
[2024-10-25] MEDS: IBUPROFEN 600 MG TABLET (FP) PO PRN (20:07)
[2024-10-25] MEDS: METHOCARBAMOL 500 MG TABLET PO PRN (20:08)
[2024-10-25] MEDS: MELATONIN 5 MG TABLETS PO SCH (22:41)
[2024-10-25] MEDS: THIAMINE 100 MG TABLET PO SCH (22:41)
[2024-10-26] MEDS: PRENATAL VITAMINS W/ FOLIC ACID TABLET (FP) PO SCH (10:20)
[2024-10-26] MEDS: amLODIPine BESYLATE 10 MG TABLET (FP) PO SCH (10:24)
[2024-10-26] MEDS: FAMOTIDINE 20 MG TABLET PO SCH (10:24)
[2024-10-27 08:15] LABS: MCHC 33.8 g/dl (32.3-36.5); MEAN CELL VOLUME 90.2 fl (79.0-92.2); MEAN PLT VOLUME 10.6 fl (9.4-12.4); RDW 13.5 % (12.2-16.4)
[2024-10-27 08:24] LABS: CO2 24 mmol/L (21-32); GLUCOSE,RANDOM 141 mg/dL (74-106)
[2024-10-27 08:26] LABS: CREATININE 1.0 mg/dL (0.55-1.3); SGPT/ALT 64 U/L (13-61)
[2024-10-27 08:27] LABS: SGOT/AST 44 U/L (15-37); TOT PROT 7.0 g/dl (6.4-8.2)
[2024-10-27 08:29] LABS: ALK PHOS 70 U/L (45-117)
[2024-10-27] MEDS: ARTIFICIAL TEARS OPHTHALMIC DROPS OU PRN (13:18)
[2024-10-27] MEDS: PHENYLEPHRINE HCL/COCOA BUTTER 1 EACH SUPP.RECT RC SCH (22:46)
[2024-10-27] MEDS: FLUTICASONE PROP 0.05% 16 GM NASAL SPRAY NS SCH (22:46)
[2024-10-28] MEDS: MAG HYDROX/AL HYDROX/SIMETH 30 ML UNIT-DOSE CUP PO PRN (17:32)
[2024-10-29 08:27] VITALS: BP 132/65; PULSE 92; RESP 18; TEMP 97.8
== END 2024-10-29 09:49 | disposition home or self-care (01) | DRG 775 ==
LOC: YASAS 16:05 → Y6N 19:04
PROVIDERS: ADMIT Neuromusculoskeletal Medicine & OMM; ATTEND Allergy & Immunology
PROC: HZ2ZZZZ Detoxification Services for Substance Abuse Treatment (ICD-10-PCS; principal; 2024-10-25)
DX: F10.230 Alcohol dependence with withdrawal, uncomplicated (principal); F17.210 Nicotine dependence, cigarettes, uncomplicated; F10.280 Alcohol dependence with alcohol-induced anxiety disorder; I10 Essential (primary) hypertension; K21.9 Gastro-esophageal reflux disease without esophagitis; M54.50 Low back pain, unspecified; G89.29 Other chronic pain; Z86.19 Personal history of other infectious and parasitic diseases; Z88.0 Allergy status to penicillin; Z88.7 Allergy status to serum and vaccine
CPT/HCPCS: 36415; 80053; 80305; 80307; 85027; 86593; 86780

== ENCOUNTER 2024-12-22 03:36 | Inpatient (IN) | payer OTHER ==
[2024-12-22] MEDS ORDERED: POLYETHYLENE GLYCOL (HEALTHYLAX) 3350 17 GM PACKET PO PRN (03:42)
[2024-12-22] MEDS ORDERED: LOPERAMIDE HCL 2 MG CAPSULE PO PRN (03:42)
[2024-12-22] MEDS ORDERED: guaiFENesin 600 MG TABLET.ER (FP) PO PRN (03:42)
[2024-12-22] MEDS ORDERED: BENZONATATE 200 MG CAPSULE PO PRN (03:42)
[2024-12-22] MEDS ORDERED: BENZOCAINE/MENTHOL (CHLORASEPTIC ) LOZENGE MM PRN (03:42)
[2024-12-22] MEDS ORDERED: MAGNESIUM HYDROX 2400MG/30ML ORAL SUSPENSION 30 ML CUP PO PRN (03:42)
[2024-12-22] MEDS ORDERED: BISMUTH SUBSALICYLATE 524 MG/30 ML PO PRN (03:42)
[2024-12-22] MEDS ORDERED: IBUPROFEN 400 MG TABLET (FP) PO PRN (03:42)
[2024-12-22] MEDS ORDERED: NALOXONE (NARCAN) HCL 4 MG/0.1 ML SPRAY NS PRN (03:42)
[2024-12-22] MEDS ORDERED: ONDANSETRON *ODT* 4 MG TABLET SL PRN (03:42)
[2024-12-22 03:45] VITALS: BMI 30.2
[2024-12-22] MEDS ORDERED: HYDROCORTISONE 2.5% TOPICAL CREAM 30 GM TUBE TP PRN (03:50)
[2024-12-22] MEDS ORDERED: P-EPHED 60MG/TRIPROLIDI 2.5MG TABLET PO PRN (03:51)
[2024-12-22] MEDS ORDERED: BACITRACIN ZINC 15 GM TUBE TOPICAL OINTMENT TP PRN (03:52)
[2024-12-22] MEDS ORDERED: hydrOXYzine PAMOATE 25 MG CAPSULE (FP) PO ONE (04:34)
[2024-12-22] MEDS: hydrOXYzine PAMOATE 25 MG CAPSULE (FP) PO ONE (04:40)
[2024-12-22] MEDS: PRENATAL VITAMINS W/ FOLIC ACID TABLET (FP) PO SCH (11:45)
[2024-12-22] MEDS ORDERED: FAMOTIDINE 20 MG TABLET PO SCH (22:00)
[2024-12-22] MEDS ORDERED: GABAPENTIN 300 MG CAPSULE PO SCH (22:00)
[2024-12-22] MEDS: MELATONIN 5 MG TABLETS PO SCH (22:22)
[2024-12-22] MEDS: THIAMINE 100 MG TABLET PO SCH (22:24)
[2024-12-23] MEDS: ACETAMINOPHEN 325 MG TABLET (FP) PO PRN (05:36)
[2024-12-23] MEDS: FAMOTIDINE 20 MG TABLET PO SCH (07:01)
[2024-12-23] MEDS: amLODIPine BESYLATE 10 MG TABLET (FP) PO SCH (09:50)
[2024-12-23 12:19] LABS: MCHC 33.1 g/dl (32.3-36.5); MEAN CELL VOLUME 92.3 fl (79.0-92.2); MEAN PLT VOLUME 12.1 fl (9.4-12.4); RDW 14.0 % (12.2-16.4)
[2024-12-23 13:45] LABS: SYPHILIS W/ RPR CONF REACTIVE (NONREACTIVE)
[2024-12-23 13:47] LABS: TOT PROT 6.5 g/dl (6.4-8.2)
[2024-12-23 13:48] LABS: CO2 19.0 mmol/L (21-32)
[2024-12-23 13:50] LABS: ALK PHOS 72.0 U/L (40-150)
[2024-12-23 13:53] LABS: CREATININE 1.0 mg/dL (0.55-1.3); GLUCOSE,RANDOM 128.0 mg/dL (74-106); SGOT/AST 40.0 U/L (5-34); SGPT/ALT 33.0 U/L (0-55)
[2024-12-23 16:23] LABS: RPR REFLEX REACTIVE 1:1 (NONREACTIVE)
[2024-12-24] MEDS: MAG HYDROX/AL HYDROX/SIMETH 30 ML UNIT-DOSE CUP PO PRN (14:24)
[2024-12-24] MEDS: IBUPROFEN 600 MG TABLET (FP) PO PRN (15:15)
[2024-12-24] MEDS: ARTIFICIAL TEARS OPHTHALMIC DROPS OU PRN (15:16)
[2024-12-24] MEDS: HYDROCORTISONE 1% TOPICAL LOTION 118 ML BOTTLE TP SCH (16:00)
[2024-12-24] MEDS: HYDROCORTISONE 2.5% TOPICAL CREAM 30 GM TUBE RC SCH (23:45)
[2024-12-25] MEDS: FLUTICASONE PROP 0.05% 16 GM NASAL SPRAY NS PRN (09:25)
[2024-12-26 09:54] VITALS: BP 152/84; PULSE 100; RESP 17; TEMP 96.9
== END 2024-12-26 09:42 | disposition home or self-care (01) | DRG 775 ==
LOC: YASAS 03:36 → Y6N 04:31
PROVIDERS: ADMIT Neuromusculoskeletal Medicine & OMM; ATTEND Counselor Addiction (Substance Use Disorder)
PROC: HZ2ZZZZ Detoxification Services for Substance Abuse Treatment (ICD-10-PCS; principal; 2024-12-22)
DX: F10.230 Alcohol dependence with withdrawal, uncomplicated (principal); F17.210 Nicotine dependence, cigarettes, uncomplicated; F10.280 Alcohol dependence with alcohol-induced anxiety disorder; G62.9 Polyneuropathy, unspecified; I10 Essential (primary) hypertension; K21.9 Gastro-esophageal reflux disease without esophagitis; K64.9 Unspecified hemorrhoids; M54.50 Low back pain, unspecified; G89.29 Other chronic pain; Z86.11 Personal history of tuberculosis; Z86.19 Personal history of other infectious and parasitic diseases; Z88.0 Allergy status to penicillin; Z88.7 Allergy status to serum and vaccine
CPT/HCPCS: 36415; 80053; 85027; 86593; 86780